=== PATIENT | female | born 1950 | race Caucasian/White ===

== ENCOUNTER 2016-11-26 08:43 | Inpatient (IN) | payer OTHER, MEDICARE ==
[~2016-11-26] VITALS: Ht 172.7 cm; Wt 75.9 kg
[~2016-11-26 08:43] MED LIST: AMBIEN 10MG10 MG PO; AMLODIPINE BES2.5 MG PO; AMLODIPINE10 MG PO; ATIVAN1 MG PO; ATIVAN2 MG PO; CARDIZEM CD 12120 MG PO; COUMADIN 2 MG TA2 MG PO; COUMADIN 2.5 M2.5 MG PO; COUMADIN 3 MG TA3 MG PO; COUMADIN 5 MG TA5 MG PO; COUMADIN5 M2 PO; DELTASONE5 MG PO; EPOGEN SC; EXALGO12 MG PO; EXALGO16 MG PO; FUROSEMIDE40 MG PO; GUAIFENESIN ER600 MG PO; HYDROMORPHONE H PO; HYDROMORPHONE HC2 MG PO; KLOR-CON 10MEQ10 MEQ PO; LASIX 100M100 MG/10 IV; LASIX20 MG PO; LASIX40 MG PO; LASIX80 MG PO; LORAZEPAM1 MG PO; LORAZEPAM2 MG PO; MECLIZINE HCL25 M1 PO; MELATONIN5 M1 PO; MORPHINE SULFAT30 M2 PO; MS CONTIN15 M1 PO; MS CONTIN30 MG PO; MYCOSTATIN POWD15 GM TOP; NORVASC 10MG10 MG PO; OXYCODONE HCL15 MG PO; OXYCODONE HCL30 MG PO; PREDNISONE 20MG20 MG PO; PREDNISONE10 M2 PO; PREDNISONE10 MG PO; PREDNISONE5 MG PO; PROAIR HFA0.09 MG/Ac INH; PROCRIT20000 U/ML IV; PROCRIT20000 U/ML SC; RENVELA800 MG PO; ROXICODONE5 MG PO; SENNA CON/DOCUS1 TAB PO; SERTRALINE HYD100 MG PO; SPIRIVA 18 MCG18 MCG INH; SYMBICORT 160/41 PUF INH; VALIUM5 M1 PO; VITAMIN D1000 IU PO; WARFARIN SODIUM3 MG PO; ZOLPIDEM TARTRA10 MG PO
--- NOTE | 2016-11-26 08:45 | ED GENERAL ADULT ---
History of Present Illness General Chief Complaint: Dyspnea (COPD, CHF, Other) Stated Complaint: BIBA DIFF BREATHING Source: patient, EMS Exam Limitations: no limitations Vital Signs & Intake/Output Vital Signs & Intake/Output Vital Signs Date Time Temp Pulse Resp B/P Pulse O2 O2 Flow FiO2 Ox Delivery Rate 11/27 0807 97.8 75 20 120/77 99 Nasal 3.0L Cannula 11/27 0803 99 Nasal 3.0L Cannula 11/27 0000 98 Nasal 3.0L Cannula 11/26 2300 98.0 11/26 2251 18.0 74 18 152/76 99 11/26 2116 100 160/84 11/26 1925 Nasal 4.0L Cannula 11/26 1856 98.1 88 18 157/99 98 11/26 1852 97 Nasal 4.0L Cannula 11/26 1740 97 Nasal 3.0L Cannula 11/26 1247 97 Nasal 3.0L Cannula 11/26 1238 97.7 88 22 164/77 96 Nasal 3.0L Cannula ED Intake and Output 11/27 0000 11/26 1200 Intake Total 240 0 Output Total 100 Balance 140 0 Intake, Oral 240 0 Output, Urine 100 Patient 158 lb 166 lb Weight Allergies Coded Allergies: NO KNOWN ALLERGIES (11/26/16) Reconcile Medications Albuterol Sulfate (Proair Hfa) 0.09 MG/Actuation LUAN 2 PUFF INH Q4 HRS NEEDED PRN SHORTNESS OF BREATH (Reported) Amlodipine Besylate (Amlodipine) 10 MG TAB 1 TAB PO AT BEDTIME high blood pressure Budesonide/Formoterol Fumara (Symbicort 160-4.5 Mcg Inhaler) 160 MCG/4.5 MCG PUF 2 PUF INH BID COPD (Reported) Cholecalciferol (Vitamin D3) 1,000 UNIT TABLET 1,000 IU PO DAILY VITAMIN D SUPPLEMENT Diltiazem Cd (Diltiazem ER) 120 MG CAP.ER.DEG 120 MG PO DAILY A.Fib Epoetin Jerson (Procrit) 20,000 U/ML ML 7,000 U IV Tuesday PRN WITH DIALYSIS Furosemide (Lasix) 80 MG TAB 1 TAB PO AD DIURETIC (Reported) Guaifenesin (Guaifenesin ER) 600 MG TAB.ER.12H 600 MG PO Q12 PRN cough Lorazepam (Ativan) 2 MG TABLET 1 TAB PO QPM PRN ANXIETY (Reported) OXYCODONE HCL (Oxycodone HCl) 15 MG TABLET 1 TAB PO Q4H PAIN (Reported) SERTRALINE HCL (Sertraline Hydrochloride) 100 MG TABLET 1 TAB PO DAILY Depression (Reported) Sevelamer Carbonate (Renvela) 800 MG TABLET 1 TAB PO TID WM PHOSPHORUS BINDER (Reported) TAKE WITH MEALS Tiotropium [place] (Spiriva) 18 MCG CAP.W.DEV 1 CAP INH DAILY COPD (Reported) Warfarin Sodium (Coumadin) 5 MG TABLET 0.5 TAB PO DAILY BLOOD THINNER ( Reported) Triage Nurses Notes Reviewed? yes Onset: Abrupt Duration: day(s): Timing: recent history HPI: 11/26/16 66-year-old female presents to the emergency department complaining of difficulty breathing. The patient used to smoke and has a history of COPD. She also has a history of renal failure and is currently on dialysis. She is due for dialysis today at 11 AM. Today she woke up with severe short of breath redness of breath. She also says that she's had difficulty sleeping last night. The onset of the symptoms were abrupt, the duration was just this morning, the severity significant as her symptoms required to come to the emergency department for care. Past History Travel History Traveled to [place] past 21 day No Medical History Any Pertinent Medical History? see below for history Neurological: TIA EENT: NONE Cardiovascular: AFIB (s/p ablation), CHF, hypertension, mitral stenosis, PACER MITRAL VALVE REPLACEMENT Respiratory: COPD, emphysema, pulmonary hypertension, 02 DEP @ 2L VIA N/C Gastrointestinal: NONE, 08/06 EGD- suggestion of gastroparesis 08/06- colonoscopy- fair prep, but otherwise normal Hepatic: NONE Renal: chronic kidney disease, FISTULA L ARM Musculoskeletal: chronic back pain Psychiatric: anxiety, depression Endocrine: NONE Blood Disorders: anemia Cancer(s): NONE HR ADVISOR/Reproductive: NONE History of MRSA: No History of VRE: No History of CDIFF: No Pneumonia Vaccine: 08/13/10 Surgical History Surgical History: appendectomy, Av fistual on left side [facility] [facility] valve replacement February 1996 at R evacuation of left arm hematoma pacemaker MVR Psychosocial History Who do you live with Spouse Services at Home Nursing, Oxygen, Physical Therapy What is your primary language Slovenian Family History Family History, If Any: BROTHER FH: diabetes mellitus Hx Contributory? No Review of Systems Review of Systems Constitutional: Denies: fever. EENTM: Reports: no symptoms. Respiratory: Reports: cough, short of breath. Cardiovascular: Reports: no symptoms. GI: Reports: no symptoms. Genitourinary: Reports: no symptoms. Musculoskeletal: Reports: no symptoms. Skin: Reports: no symptoms. Neurological/Psychological: Reports: no symptoms. Hematologic/Endocrine: Reports: no symptoms. Immunologic/Allergic: Reports: no symptoms. Physical Exam Physical Exam General Appearance: alert, awake, anxious, moderate distress Head: atraumatic, normal appearance Eyes: Bilateral: normal appearance, PERRL, EOMI. Ears, Nose, Throat: normal pharynx, normal ENT inspection Neck: normal inspection, supple Respiratory: wheezing, respiratory distress Cardiovascular: regular rate/rhythm Peripheral Pulses: 4+ radial (R), 4+ radial (L) Gastrointestinal: soft, non-tender Back: decreased range of motion Extremities: limited range of motion Neurologic/Psych: no motor/sensory deficits, awake, alert, oriented x 3 Skin: intact, normal color, warm/dry Core Measures ACS in differential dx? No CVA/TIA Diagnosis: No Severe Sepsis Present: No Septic Shock Present: No Progress Differential Diagnoses I considered the following diagnoses in my evaluation of the patient: [ Laceration of COPD, pneumonia, pneumothorax, pulmonary embolism, congestive heart failure] Plan of Care: Orders Procedure Date/time Status PROTHROMBIN TIME 11/28 0600 Active BASIC ELECTROLYTES PLUS BUN&CR 11/28 0600 Active Weight 11/27 0630 Active PROTHROMBIN TIME 11/27 0600 Complete CBC WITHOUT DIFFERENTIAL 11/27 06 Complete BASIC ELECTROLYTES PLUS BUN&CR 11/27 0600 Complete MISSING MEDICATION FORM 11/27 UNK Active Renal Dialysis Diet 11/26 D Active Pain Treatment and Response 11/26 2118 Active Vital Signs 11/26 1912 Active Teach/Educate 11/26 1912 Active Nutritional Intake, Monitor 11/26 1912 Active Isolation 11/26 1912 Active Intake & Output 11/26 1912 Active Patient Care Conference 11/26 1912 Active Activity/Ambulation 11/26 1912 Active RT: Reevaluation 11/26 184 Active RT: Evaluation 11/26 184 Active OXYGEN SETUP (GEN) 11/26 1800 Complete PROTHROMBIN TIME 11/26 1534 Active STREP PNEUMO URINARY ANTIGEN 11/26 1448 Active LEGIONELLA URINARY ANTIGEN 11/26 1448 Active Pathway - chart 11/26 1447 Active Code Status 11/26 1447 Active Vital Signs 11/26 1306 Active Code Status 11/26 1306 Complete Patient Data 11/26 1252 Active Admit to inpatient 11/26 1215 Active Intake & Output 11/26 0902 Active TRC EVALUATION (GEN) 11/26 UNK Complete THERAPIST ORDERS 11/26 UNK Complete House Staff 11/26 UNK Active VTE Mechanical Prophylaxis 11/26 UNK Active MISSING MEDICATION FORM 11/26 UNK Active Current Medications Sig/Tripp Start time Last Medication Dose Stop Time Status Admin Furosemide 80 MG QSUN 11/28 0700 AC (Lasix) Amlodipine Besylate 10 MG AT BEDTIME 11/26 2200 AC (Norvasc) Cefuroxime Sodium 250 MG Q12 11/26 2200 CAN (Ceftin) Acetaminophen 650 MG Q6P PRN 11/26 1445 AC (Tylenol) Paricalcitol 2.5 MCG MoWeFr 11/26 1415 AC (Zemplar Inj. 2MCG/ ML) Epoetin Jerson 4,000 UNIT MoWeFr 11/26 1412 AC (Epogen Inj 4000 (DIALYSIS PATIENT)) Laboratory Tests 11/27/16 0835: PT 40.4 H, INR 3.90 H 11/27/16 0740: Anion Gap 10, Estimated GFR 15 L, BUN/Creatinine Ratio 9.1, CBC w Diff NO MAN DIFF REQ, RBC 3.80 L, MCV 94.7, MCH 31.0, RDW 15.3 H, MPV 8.6, Gran % 81.0 H, Lymphocytes % 10.2 L, Monocytes % 8.7, Eosinophils % 0, Basophils % 0.1, Absolute Granulocytes 3.0, Absolute Lymphocytes 0.4 L, Absolute Monocytes 0.3, Absolute Eosinophils 0, Absolute Basophils 0, PUBS MCHC 32.8 L Microbiology 11/26 1447 URINE ROUT: Legionella Antigen - COLB 11/26 1447 URINE ROUT: Streptococcus pneumoniae Antigen (M - COLB Initial ED EKG: nonspecific ST T wave chg Departure Departure Disposition: STILL A PATIENT Condition: Stable Clinical Impression Primary Impression: Acute exacerbation of COPD with asthma Referrals: YAIR SARAH MD (PCP/Family) Departure Forms: Customer Survey General Discharge Information Comments THE PATIENT WAS TREATED WITH MULTIPLE NEBULIZERS IN THE EMERGENCY DEPARTMENT AND PLACED ON OXYGEN. SHE WAS GIVEN STEROIDS. SHE CONTINUED TO HAVE RESPIRATORY DISTRESS WITH ANY DEGREE OF ACTIVITY. SHE WAS ADMITTED TO THE HOSPITAL FOR DIALYSIS AND FURTHER CARE. PATIENT: ZAFAR GARCIA PRESENT AGE: 66 PATIENT ACCOUNT NO: [id number] : 51 LOCATION: [facility] ORDERING PHYSICIAN: JONO CABRERA DO SERVICE DATE: 11/26/16 EXAM TYPE: RAD - XRY-CHEST XRAY, PA AND LATERAL EXAMINATION: XR CHEST CLINICAL INFORMATION: Difficulty breathing. Productive cough. COMPARISON: Chest radiograph 06/17/2016. TECHNIQUE: 2 views the chest were obtained. 3 images total. FINDINGS: Similar to the findings demonstrated on the most recent prior examination from 06/17/2016 there are ill-defined opacities involving both lungs primarily on the right side with a perihilar distribution. A few nodular opacities are visualized for instance within the peripheral aspect of the right midlung and the right lower lobe. The cardiac silhouette remains enlarged but unchanged from prior imaging. Upper mediastinal contours are normal. There is a stable position of a 2-lead pacer. The position of the generator in the left chest is unchanged. Trace effusions within the posterior costophrenic recesses on the lateral projection. There is diffuse demineralization of bone. No acute osseous finding. IMPRESSION: There are ill-defined opacities involving both lungs primarily on the right side. A few nodular opacities are visualized within the periphery of the right lung and within the right lower lobe. Findings are largely unchanged when compared to the prior chest radiograph from 06/17/2016. These findings may represent a manifestation of pneumonia in the appropriate clinical setting. A dedicated CT scan of the chest may provide better anatomic characterization of these findings. DICTATED BY: ASHISH SERVIN MD DATE/TIME DICTATED:11/26/16938 HUMAN SERVICES CARE SPECIALIST:STEFANIE DATE/TIME TRANSCRIBED:11/26/16938 CONFIDENTIAL, DO NOT COPY WITHOUT APPROPRIATE AUTHORIZATION. <Electronically signed in Other Vendor System> SIGNED BY: ASHISH SERVIN MD 11/26 Admission Note Spoke With: YAIR SARAH MD Documentation of Exam: Documentation of any treatments & extenuating circumstances including Concerns Regarding Discharge (functional status, medication knowledge or non-compliance, living conditions, etc.) that warrant an admission rather than observation: [The patient needs admission for albuterol and Atrovent nebulizer treatments every 4 hours, IV steroids, inpatient dialysis, IV antibiotics] Critical Care Note Critical Care Note Critical Care Time: 30-74 min
--- NOTE | 2016-11-26 08:54 | NUR ---
PT BIBA FROM HOME FOR INCREASED SOB FOR THE LAST WEEK, BUT WORSE SINCE YESTERDAY. PT REPORTS SHE STARTS TO GET SOB WHILE WALKING SHORTER DISTANCES. PT BASELINE 3L O2 AT HOME. PT ALSO DIALYSIS PT. LAST DIALYZED TUESDAY AND DUE FOR IT AGAIN TODAY AROUND 1100. PT RECEIVED DUONEB AND 125MG SOLUMEDROL EN ROUTE. PT 100% 3L NC OXYGEN. +WHEEZING NOTED.
--- NOTE | 2016-11-26 09:19 | NUR ---
PT TO XRAY VIA STRETCHER NOW.
--- NOTE | 2016-11-26 09:45 | NUR ---
BLOOD WORK DRAWN AND SENT TO LAB: SST, LAV, BLUE, SHANE TOPS. IV EST BY [place] BLANC.
[2016-11-26 09:50] LABS: ABSOLUTE BASOPHIL COUNT 0 /CUMM (0.0-0.2); ABSOLUTE EOSINOPHIL COUNT 0.1 /CUMM (0.0-0.7); ABSOLUTE GRANULOCYTE CT 5.2 /CUMM (1.4-6.5); ABSOLUTE LYMPH COUNT 0.6 /CUMM (1.2-3.4); ABSOLUTE MONOCYTE COUNT 0.5 /CUMM (0.10-0.60); BASOPHIL % 0.2 % (0.0-2.0); EOSINOPHIL % 1.3 % (0-5); GRANULOCYTE % 81.1 % (42.2-75.2); HEMATOCRIT 36.8 % (37-47); MEAN CORPUSCULAR HGB 30.9 PG (27.0-31.0); MEAN CORPUSCULAR HGB CONC 32.1 G/DL (33.0-37.0); MEAN CORPUSCULAR VOLUME 96.2 FL (81.0-99.0); MEAN PLATELET VOLUME 8.1 FL (7.4-10.4); PLATELET COUNT 223 /CUMM (130-400); RBC DISTRIBUTION WIDTH 15.7 % (11.5-14.5); RED BLOOD CELL CT 3.82 /CUMM (4.20-5.40); WHITE BLOOD CELL COUNT 6.4 /CUMM (4.8-10.8)
--- NOTE | 2016-11-26 09:51 | RADIOLOGY REPORT ---
EXAMINATION: XR CHEST CLINICAL INFORMATION: Difficulty breathing. Productive cough. COMPARISON: Chest radiograph 06/17/2016. TECHNIQUE: 2 views the chest were obtained. 3 images total. FINDINGS: Similar to the findings demonstrated on the most recent prior examination from 06/17/2016 there are ill-defined opacities involving both lungs primarily on the right side with a perihilar distribution. A few nodular opacities are visualized for instance within the peripheral aspect of the right midlung and the right lower lobe. The cardiac silhouette remains enlarged but unchanged from prior imaging. Upper mediastinal contours are normal. There is a stable position of a 2-lead pacer. The position of the generator in the left chest is unchanged. Trace effusions within the posterior costophrenic recesses on the lateral projection. There is diffuse demineralization of bone. No acute osseous finding. IMPRESSION: There are ill-defined opacities involving both lungs primarily on the right side. A few nodular opacities are visualized within the periphery of the right lung and within the right lower lobe. Findings are largely unchanged when compared to the prior chest radiograph from 06/17/2016. These findings may represent a manifestation of pneumonia in the appropriate clinical setting. A dedicated CT scan of the chest may provide better anatomic characterization of these findings.
--- NOTE | 2016-11-26 09:56 | NUR ---
RESP AT BEDSIDE FOR TREATMENT.
--- NOTE | 2016-11-26 11:23 | NUR ---
PT MEDICATED ORDERED
--- NOTE | 2016-11-26 12:34 | NUR ---
RESP CALLED FOR TREATMENT.
--- NOTE | 2016-11-26 12:34 | NUR ---
PT AMBULATED TO BED SIDE COMMODE WITH STEADY GAIT, EXERTIONAL DYSPNEA NOTED. CALL [facility] WITHIN REACH AND PT INFORMED TO RING WHEN READY.
--- NOTE | 2016-11-26 12:39 | NUR ---
O2 SAT DROPPED TO 92% AFTER AMBULATING TO BEDSIDE COMMODE. PT NOTED TO WHEEZE HEAVILY AFTER AMBULATION.
--- NOTE | 2016-11-26 13:06 | NUR ---
PT TRANSPORTED TO DIALYSIS VIA STRETCHER. STABLE FOR TRANSPORT.
--- NOTE | 2016-11-26 13:10 | NUR ---
DIALYSIS NURSE GIVEN REPORT.
--- NOTE | 2016-11-26 13:17 | Admission Certification ---
Admission Certification Certification Statement - As attending physician, I certify that at the time of - admission, based on clinical presentation, severity of - symptoms, need for further diagnostic testing and - therapeutic interventions, and risk of adverse outcomes - without in-hospital treatment, in my clinical assessment, - this patient requires an acute hospital stay for a minimum - of two nights or longer. I have also considered psychsocial - factors such as support system, advanced age, financial - issues, cognitive issues, and failed out-patient treatments, - past re-admission history, safety of patient, and lack of - compliance as applicable. Specific rationale supporting this admission is: Exacerbation of her COPD
--- NOTE | 2016-11-26 13:21 | PN- Att Addend ---
Attending Addendum Attending Brief Note 56-year-old white female known with chronic lung disease and renal failure, this morning woke up with severe shortness of breath and some wheezes so bad she couldn't get to her scheduled hemodialysis associate and the lab in the emergency room came via ambulance. Will be admitted for an exacerbation of her COPD and use the protocol to be followed by pulmonary. Patient will have her hemodialysis in the hospital today, Laboratory Tests 11/26 0942 Chemistry Sodium (137 - 145 mmol/L) 141 Potassium (3.5 - 5.1 mmol/L) 5.1 Chloride (98 - 107 mmol/L) 104 Carbon Dioxide (22 - 30 mmol/L) 25 Anion Gap (5 - 16) 12 BUN (7 - 17 mg/dL) 29 H Creatinine (0.5 - 1.0 mg/dL) 4.0 H Estimated GFR (>60 ml/min) 11 L BUN/Creatinine Ratio (7 - 25 %) 7.3 Glucose (65 - 99 mg/dL) 98 Calcium (8.4 - 10.2 mg/dL) 9.4 Total Bilirubin (0.2 - 1.3 mg/dL) 0.6 AST (14 - 36 U/L) 19 ALT (9 - 52 U/L) 35 Alkaline Phosphatase (<127 U/L) 113 Troponin I (< 0.11 ng/ml) 0.02 Total Protein (6.3 - 8.2 g/dL) 6.8 Albumin (3.5 - 5.0 g/dL) 4.3 Globulin (1.9 - 4.2 gm/dL) 2.5 Albumin/Globulin Ratio (1.1 - 2.2 %) 1.7 Hematology CBC w Diff NO MAN DIFF REQ WBC (4.8 - 10.8 /CUMM) 6.4 RBC (4.20 - 5.40 /CUMM) 3.82 L Hgb (12.0 - 16.0 G/DL) 11.8 L Hct (37 - 47 %) 36.8 L MCV (81.0 - 99.0 FL) 96.2 MCH (27.0 - 31.0 PG) 30.9 RDW (11.5 - 14.5 %) 15.7 H Plt Count (130 - 400 /CUMM) 223 MPV (7.4 - 10.4 FL) 8.1 Gran % (42.2 - 75.2 %) 81.1 H Lymphocytes % (20.5 - 51.1 %) 9.0 L Monocytes % (1.7 - 9.3 %) 8.4 Eosinophils % (0 - 5 %) 1.3 Basophils % (0.0 - 2.0 %) 0.2 Absolute Granulocytes (1.4 - 6.5 /CUMM) 5.2 Absolute Lymphocytes (1.2 - 3.4 /CUMM) 0.6 L Absolute Monocytes (0.10 - 0.60 /CUMM) 0.5 Absolute Eosinophils (0.0 - 0.7 /CUMM) 0.1 Absolute Basophils (0.0 - 0.2 /CUMM) 0 PUBS MCHC (33.0 - 37.0 G/DL) 32.1 L
--- NOTE | 2016-11-26 13:52 | NUR ---
PT HAS BED ASSIGNMENT 201-1. RN NOTIFIED.
--- NOTE | 2016-11-26 14:01 | History & Physical ---
See Addendum RAYO LANE,AGUSTO 11/26/16 1401: General Information and HPI MD Statement: I have seen and personally examined ZAFAR GARCIA and documented this H&P. The patient is a 66 year old F who presented with a patient stated chief complaint of dyspnea. Source of Information: patient Exam Limitations: no limitations History of Present Illness: This is a 66-year-old lady with a past medical history significant for oxygen dependent severe COPD, former smoker for more than 40 years, minor hypertension, tinnitus post mitral valve replacement due to mitral stenosis, A. fib, CHF, hypertension, presents with chief complaint of progressively worsening dyspnea. Patient reports about one week ago she started experiencing increased shortness of breath which progressed to dyspnea on minimal exertion. Associated symptoms include increased cough with increased sputum production. Patient reports the sputum to be yellowish and sometimes white in color. She also endorses chills but denies any fevers. She also reports one day of diarrhea and vomiting which stopped after she was given loperamide. She denies any recent URI, any sick contacts, chest pain, palpitation, increased lower extremity swelling, increased orthopnea, or PND. Last echocardiogram was in 06/17/2016 with an EF of 50-55% Of note, patient is independent with ADLS, and ambulates without the need for a cane or a walker. Allergies/Medications Allergies: Coded Allergies: NO KNOWN ALLERGIES (11/26/16) Home Med list Albuterol Sulfate (Proair Hfa) 0.09 MG/Actuation LUNA 2 PUFF INH Q4 HRS NEEDED PRN SHORTNESS OF BREATH (Reported) Amlodipine Besylate (Amlodipine) 10 MG TAB 1 TAB PO AT BEDTIME high blood pressure Budesonide/Formoterol Fumara (Symbicort 160-4.5 Mcg Inhaler) 160 MCG/4.5 MCG PUF 2 PUF INH BID COPD (Reported) Cholecalciferol (Vitamin D3) 1,000 UNIT TABLET 1,000 IU PO DAILY VITAMIN D SUPPLEMENT Diltiazem Cd (Diltiazem ER) 120 MG CAP.ER.DEG 120 MG PO DAILY A.Fib Epoetin Jerson (Procrit) 20,000 U/ML ML 7,000 U IV Tuesday PRN WITH DIALYSIS Furosemide (Lasix) 80 MG TAB 1 TAB PO AD DIURETIC (Reported) Guaifenesin (Guaifenesin ER) 600 MG TAB.ER.12H 600 MG PO Q12 PRN cough Lorazepam (Ativan) 2 MG TABLET 1 TAB PO QPM PRN ANXIETY (Reported) OXYCODONE HCL (Oxycodone HCl) 15 MG TABLET 1 TAB PO Q4H PAIN (Reported) SERTRALINE HCL (Sertraline Hydrochloride) 100 MG TABLET 1 TAB PO DAILY Depression (Reported) Sevelamer Carbonate (Renvela) 800 MG TABLET 1 TAB PO TID WM PHOSPHORUS BINDER (Reported) TAKE WITH MEALS Tiotropium [place] (Spiriva) 18 MCG CAP.W.DEV 1 CAP INH DAILY COPD (Reported) Warfarin Sodium (Coumadin) 5 MG TABLET 0.5 TAB PO DAILY BLOOD THINNER ( Reported) Past History Travel History Traveled to [place] past 21 day No Medical History Neurological: TIA EENT: NONE Cardiovascular: AFIB (s/p ablation), CHF, hypertension, mitral stenosis, PACER ( R CHEST) MITRAL VALVE REPLACEMENT Respiratory: COPD, emphysema, pulmonary hypertension, 02 DEP @ 3L VIA N/C Gastrointestinal: 08/06 EGD- suggestion of gastroparesis 08/06- colonoscopy- fair prep, but otherwise normal Hepatic: NONE Renal: chronic kidney disease, FISTULA L ARM Musculoskeletal: chronic back pain Psychiatric: anxiety, depression Endocrine: NONE Blood Disorders: anemia Cancer(s): NONE TITLE INVESTIGATOR/Reproductive: NONE History of MRSA: No History of VRE: No History of CDIFF: No Surgical History Surgical History: appendectomy, Av fistual on left side [facility] [facility] valve replacement February 1996 at R evacuation of left arm hematoma pacemaker MVR Past Family/Social History Family History Relations & Conditions if any BROTHER FH: diabetes mellitus Psychosocial History Services at Home: Nursing, Oxygen, Physical Therapy ETOH Use: denies use Functional Ability ADLs Independent: dressing, eating, toileting, bathing. Ambulation: independent Review of Systems Review of Systems Constitutional: Reports: see HPI. Exam & Diagnostic Data Last 24 Hrs of Vital Signs/I&O Vital Signs Date Time Temp Pulse Resp B/P Pulse O2 O2 Flow FiO2 Ox Delivery Rate 11/26 1924 Nasal 4.0L Cannula 11/26 185 98.1 88 18 157/99 98 11/26 1852 97 Nasal 4.0L Cannula 11/26 1740 97 Nasal 3.0L Cannula 11/26 1247 97 Nasal 3.0L Cannula 11/26 1238 97.7 88 22 164/77 96 Nasal 3.0L Cannula 11/26 1118 98.0 72 22 164/74 99 Nasal 3.0L Cannula 11/26 0955 98 Nasal 3.0L Cannula 11/26 0902 98 Nasal 3.0L Cannula 11/26 0854 97.7 80 20 173/74 100 Nasal 3.0L Cannula Intake & Output 11/26 1600 11/26 0800 11/26 0000 Intake Total 0 Output Total Balance 0 Intake, Oral 0 Patient 75.296 kg Weight Physical Exam General Appearance Alert, Oriented X3, Cooperative Skin No Significant Lesion HEENT Atraumatic, PERRLA, EOMI, Mucous Membr. moist/pink Neck Supple Lymphatic Cervical nl Cardiovascular Regular Rate, Normal S1, Normal S2 Lungs b/l expiratory whezzes on all lung nino. Abdomen Normal Bowel Sounds, Soft, No Tenderness Neurological Normal Speech, Normal Tone, Sensation Intact Vascular Pulses Symmetrical Assessment/Plan Assessment: This 66-year-old female with a significant past medical history of severe COPD, pulmonary hypertension, presents with symptoms that are consistent with acute exacerbation of COPD (worsening dyspnea, increased cough, and increased sputum production). Radiological finding from a chest x-ray is suggestive of possible pneumonia, however, findings are unchanged when compared to the previous chest x -ray from May 2016. Impression * AECOPD * Chronic hypoxic respiratory failure * History of ESRD requiring dialysis. * Chronic anemia * History of A. fib * History of mitral valve replacement Plan Will admit to general medicine floor O2 supplementation to keep sats above 90% Solu-Medrol 40 mg every 8h TRC/Nebs Will consider CT chest, however will defer to pulmonology. Will obtain pulmonary consult Nephrology on board for dialysis(appreciated) Will continue diltiazem INR based coumadin dose with target of 2.5-3.5 Continue oxycodene for chronic back pain As Ranked By This Provider Problem List: 1. COPD with acute exacerbation Core Measures/Miscellaneous Acute Coronary Syndrome ACS Diagnosis: No Cerebrovascular Accident CVA/TIA Diagnosis: No Congestive Heart Failure CHF Diagnosis: No Venous Thromboembolism VTE Risk Factors: Acute medical illness, Age > 40 VTE Prophylaxis Ordered Inpt: Pharm- Warfarin No Mech VTE prophylaxis d/t: No contraindications No VTE Pharm Prophylaxis d/t: No contraindications VTE Diagnosis: No VTE Type: NONE VTE Confirmed by (Test): NONE Severe Sepsis Severe Sepsis Present: No Septic Shock Septic Shock Present: No Miscellaneous Documentation Attending Case Discussed With: YAIR SARAH MD Primary Care Physician: YAIR SARAH MD Patient sees these Specialists cardiology nephrology Level of Patient Care: General Medicine ESVIN ANTHONY 11/26/16 1533: Resident Review Statement Resident Statement: examined this patient, discussed with fall internship, amended to note Other Findings: 66-year-old lady with past medical history of COPD on 3 L oxygen, ESRD on dialysis, former smoker, hypertension, A. fib, CHF?, Hypertension, mitral valve replacement on Coumadin, chronic back pain who came to the hospital with chief complaint of coughing and shortness of breath for at least 1 week. Patient reported that since 1 week ago she developed more dyspnea on exertion and coughing didn't mild yellow sputum production accompanied with chills. She reports her chloride due to dialysis center probably has pneumonia. Her SOB and wheezing got so bad today that she came to the hospital. Patient on dialysis Tuesday. Patient denies any chest pain, nausea, vomiting, diarrhea, abdominal pain, fever. Vital signs admission is stable with O2 saturation over 95% on 3 L HEENT Atraumatic, PERRLA, EOMI Neck Supple, No JVD, No thryomegaly Lymphatic Cervical nl Cardiovascular Regular Rate, Normal S1, Normal S2 Lungs decreased breath sounds bilaterally. Expiratory wheezing Abdomen Normal Bowel Sounds, Soft, No Tenderness, No Hepatospenomegaly, No Masses Extremities No Clubbing, No Cyanosis, trace Edema,Normal Pulses CXR: IMPRESSION: There are ill-defined opacities involving both lungs primarily on the right side. A few nodular opacities are visualized within the periphery of the right lung and within the right lower lobe. Findings are largely unchanged when compared to the prior chest radiograph from 06/17/2016. These findings may represent a manifestation of pneumonia in the appropriate clinical setting. A dedicated CT scan of the chest may provide better anatomic characterization of these findings. Rapid flu was negative Patient creatinine is 4, hemoglobin 11.8 EKG afib 88, QTC 502, kimberli acute st-t changes Assessment and plan COPD exacerbation * Admit the patient to general floor * Keep O2 saturation over 92% * TRC nebs * IV Solu-Medrol 40 mg every 8 hours * NO azithromycin due to long QTC * Check urine strep and Legionella * Pulmonary consult was placed * put the patient on ceftin BID ESRD on dialysis * Continue Tuesday schedule * Renal dialysis diet * Continue Lasix every every day except dialysis days afib on warfarin * check INR now and give warfarin 2.5 and check INR tomorrow * Continue diltiazem Chronic back pain/anxiety/depression * Continue oxycodone and Ativan * cont Lexapro DNR/DNI, Alps on warfarin for DVT prophylaxis, renal dialysis diet,oxycdone for pain
--- NOTE | 2016-11-26 16:08 | NUR ---
REPORT GIVEN TO CLARA BLANC. INFORMED PT IS STILL AT DIALYSIS.
--- NOTE | 2016-11-26 16:09 | NUR ---
ZAFAR GARCIA Nurse Note by: LYNNE JOVEL I agree with the INBOUND CALL CENTER AGENT findings/evaluation of this patient's condition. Entered by: LYNNE JOVEL Date: 11/26/16 Time: 8253
--- NOTE | 2016-11-26 16:17 | Cons- Nephrology ---
General Information and HPI Consulting Request Date of Consult: 11/26/16 Requested By: YAIR SARAH MD Reason for Consult: ESRD History of Present Illness: 66-year-old woman with dialysis dependent ESRD did not go to her regularly scheduled outpatient dialysis session today because she had been getting more short of breath over the past 12-24 hours which she feels is on the basis of her COPD. She has been coughing which is been mostly dry but occasionally productive of discolored sputum. There has been no fever, chills, chest pain, nausea, vomiting, abdominal pain or diarrhea. Chest x-ray is unchanged from previous study of 06/17/16. WBC within normal limits at 6.4, troponin within normal limits. Past medical history is positive for end-stage renal disease secondary to hypertensive nephrosclerosis on hemodialysis support since October 2015, severe COPD on home oxygen, valvular heart disease status post mitral valve replacement , hypertension, atrial fibrillation status post ablation in 2009 with permanent pacemaker complicated by splenic hematoma, left ventricular hypertrophy, moderate right ventricular dilatation with moderate to severe pulmonary hypertension, diastolic CHF, admissions for exacerbation of COPD, chronic back pain for which she is on chronic opioid analgesics, depression. Outpatient medications include Epogen, Hectorol, Venofer, amlodipine, furosemide , vitamin D, sertraline, warfarin, diltiazem, oxycodone, Renvela, Spiriva. Allergies: No known medication allergies Family history no kidney disease in either of her parents. Her brother has some degree of renal disease, no details available. He lives in [place]. Social history: Former smoker. No alcohol or illicit drug use. Lives at home with her who also has CKD and is chronically debilitated. She uses O2 at home and has one daughter and one son. Allergies/Medications Allergies: Coded Allergies: NO KNOWN ALLERGIES (11/26/16) Home Med List: Albuterol Sulfate (Proair Hfa) 0.09 MG/Actuation LUNA 2 PUFF INH Q4 HRS NEEDED PRN SHORTNESS OF BREATH (Reported) Amlodipine Besylate (Amlodipine) 10 MG TAB 1 TAB PO AT BEDTIME high blood pressure Budesonide/Formoterol Fumara (Symbicort 160-4.5 Mcg Inhaler) 160 MCG/4.5 MCG PUF 2 PUF INH BID COPD (Reported) Cholecalciferol (Vitamin D3) 1,000 UNIT TABLET 1,000 IU PO DAILY VITAMIN D SUPPLEMENT Diltiazem Cd (Diltiazem ER) 120 MG CAP.ER.DEG 120 MG PO DAILY A.Fib Epoetin J[place] (Procrit) 20,000 U/ML ML 7,000 U IV Tuesday PRN WITH DIALYSIS Furosemide (Lasix) 80 MG TAB 1 TAB PO AD DIURETIC (Reported) Guaifenesin (Guaifenesin ER) 600 MG TAB.ER.12H 600 MG PO Q12 PRN cough Lorazepam (Ativan) 2 MG TABLET 1 TAB PO QPM PRN ANXIETY (Reported) OXYCODONE HCL (Oxycodone HCl) 15 MG TABLET 1 TAB PO Q4H PAIN (Reported) SERTRALINE HCL (Sertraline Hydrochloride) 100 MG TABLET 1 TAB PO DAILY Depression (Reported) Sevelamer Carbonate (Renvela) 800 MG TABLET 1 TAB PO TID WM PHOSPHORUS BINDER (Reported) TAKE WITH MEALS Tiotropium [place] (Spiriva) 18 MCG CAP.W.DEV 1 CAP INH DAILY COPD (Reported) Warfarin Sodium (Coumadin) 5 MG TABLET 0.5 TAB PO DAILY BLOOD THINNER ( Reported) Review of Systems Review of Systems Constitutional: Reports: malaise, weakness. EENTM: Reports: no symptoms. Cardiovascular: Reports: no symptoms. Respiratory: Reports: cough, short of breath, sputum production, wheezing. GI: Reports: no symptoms. Genitourinary: Reports: no symptoms. Musculoskeletal: Reports: no symptoms. Skin: Reports: no symptoms. 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 [facility] valve replacement February 1996 at [facility] evacuation of left arm hematoma pacemaker MVR Family History Relations & Conditions If Any: BROTHER FH: diabetes mellitus Psychosocial History Services at Home: Nursing, Oxygen, Physical Therapy ETOH Use: denies use Functional Ability ADLs Independent: dressing, eating, toileting, bathing. Ambulation: independent Exam & Diagnostic Data Vital Signs and I&O Vital Signs Date Time Temp Pulse Resp B/P Pulse O2 O2 Flow FiO2 Ox Delivery Rate 11/26 1247 97 Nasal 3.0L Cannula 11/26 1238 97.7 88 22 164/77 96 Nasal 3.0L Cannula 11/26 1118 98.0 72 22 164/74 99 Nasal 3.0L Cannula 11/26 0955 98 Nasal 3.0L Cannula 11/26 0902 98 Nasal 3.0L Cannula 11/26 0854 97.7 80 20 173/74 100 Nasal 3.0L Cannula Intake & Output 11/26 1600 11/26 04011/25 1600 11/25 04011/24 040 Intake Total 0 Output Total Balance 0 Intake, Oral 0 Patient 166 lb Weight Physical Exam: General: Well-developed white female on O2 in NAD Skin: No rash or jaundice HEENT: Conjunctivae pink, sclerae anicteric, mucous membranes moist Neck: Without masses or thyromegaly, no supraclavicular or cervical adenopathy Chest: Markedly diminished air entry bilaterally with scattered wheezing throughout both lung nino Heart: Regular rate and rhythm without S3 or rub; there is a left infraclavicular pacemaker in place Abdomen: Obese, soft and nontender without palpable masses or organomegaly Extremities: Without clubbing, cyanosis or edema; the left upper arm AVF is patent Neuro: She is awake and alert. No focal findings, no asterixis or myoclonus Results Pertinent Lab Results: Laboratory Tests 11/26 09 Chemistry Sodium (137 - 145 mmol/L) 141 Potassium (3.5 - 5.1 mmol/L) 5.1 Chloride (98 - 107 mmol/L) 104 Carbon Dioxide (22 - 30 mmol/L) 25 Anion Gap (5 - 16) 12 BUN (7 - 17 mg/dL) 29 H Creatinine (0.5 - 1.0 mg/dL) 4.0 H Estimated GFR (>60 ml/min) 11 L BUN/Creatinine Ratio (7 - 25 %) 7.3 Glucose (65 - 99 mg/dL) 98 Calcium (8.4 - 10.2 mg/dL) 9.4 Total Bilirubin (0.2 - 1.3 mg/dL) 0.6 AST (14 - 36 U/L) 19 ALT (9 - 52 U/L) 35 Alkaline Phosphatase (<127 U/L) 113 Troponin I (< 0.11 ng/ml) 0.02 Total Protein (6.3 - 8.2 g/dL) 6.8 Albumin (3.5 - 5.0 g/dL) 4.3 Globulin (1.9 - 4.2 gm/dL) 2.5 Albumin/Globulin Ratio (1.1 - 2.2 %) 1.7 Hematology CBC w Diff NO MAN DIFF REQ WBC (4.8 - 10.8 /CUMM) 6.4 RBC (4.20 - 5.40 /CUMM) 3.82 L Hgb (12.0 - 16.0 G/DL) 11.8 L Hct (37 - 47 %) 36.8 L MCV (81.0 - 99.0 FL) 96.2 MCH (27.0 - 31.0 PG) 30.9 RDW (11.5 - 14.5 %) 15.7 H Plt Count (130 - 400 /CUMM) 223 MPV (7.4 - 10.4 FL) 8.1 Gran % (42.2 - 75.2 %) 81.1 H Lymphocytes % (20.5 - 51.1 %) 9.0 L Monocytes % (1.7 - 9.3 %) 8.4 Eosinophils % (0 - 5 %) 1.3 Basophils % (0.0 - 2.0 %) 0.2 Absolute Granulocytes (1.4 - 6.5 /CUMM) 5.2 Absolute Lymphocytes (1.2 - 3.4 /CUMM) 0.6 L Absolute Monocytes (0.10 - 0.60 /CUMM) 0.5 Absolute Eosinophils (0.0 - 0.7 /CUMM) 0.1 Absolute Basophils (0.0 - 0.2 /CUMM) 0 PUBS MCHC (33.0 - 37.0 G/DL) 32.1 L Assessment/Plan Assessment/Recommendations Assessment: 66-year-old woman with: 1. End-stage renal disease on hemodialysis Mondays, Wednesdays and Fridays 2. COPD with exacerbation; I do not believe there is a significant element of CHF at this time 3. Multiple comorbidities as noted above Recommendations: 1. Hemodialysis today in progress with ultrafiltration to her dry weight over 3 hours as tolerated 2. Respiratory therapy, steroids, antibiotics 3. Continue outpatient medications 4. I will order her Epogen and vitamin D analog 5. Diet: 2 g sodium, 2 g potassium, 70-80 g protein, 1200 mL fluid limit/day Thank you. Will follow along with you.
--- NOTE | 2016-11-26 18:24 | Cons- Pulmonary ---
General Information and HPI Consulting Request Date of Consult: 11/26/16 Requested By: med team History of Present Illness: This is a 66-year-old lady with a past medical history significant for oxygen dependent severe COPD, former smoker for more than 40 years, minor hypertension, tinnitus post mitral valve replacement due to mitral stenosis, A. fib, CHF, hypertension, presents with chief complaint of progressively worsening dyspnea. Patient reports about one week ago she started experiencing increased shortness of breath which progressed to dyspnea on minimal exertion. Associated symptoms include increased cough with increased sputum production. Patient reports the sputum to be yellowish and sometimes white in color. She also endorses chills but denies any fevers. She also reports one day of diarrhea and vomiting which stopped after she was given loperamide. She denies any recent URI, any sick contacts, chest pain, palpitation, increased lower extremity swelling, increased orthopnea, or PND. Last echocardiogram was in 06/17/2016 with an EF of 50-55% Of note, patient is independent with ADLS, and ambulates without the need for a cane or a walker. S/p dialysis with ongoing smoking Constitutional: Reports: malaise, weakness. EENTM: Reports: no symptoms. Cardiovascular: Reports: no symptoms. Respiratory: Reports: cough, short of breath, sputum production, wheezing. GI: Reports: no symptoms. Genitourinary: Reports: no symptoms. Musculoskeletal: Reports: no symptoms. Skin: Reports: no symptoms. Allergies/Medications Allergies: Coded Allergies: NO KNOWN ALLERGIES (11/26/16) Home Med List: Albuterol Sulfate (Proair Hfa) 0.09 MG/Actuation LUNA 2 PUFF INH Q4 HRS NEEDED PRN SHORTNESS OF BREATH (Reported) Amlodipine Besylate (Amlodipine) 10 MG TAB 1 TAB PO AT BEDTIME high blood pressure Budesonide/Formoterol Fumara (Symbicort 160-4.5 Mcg Inhaler) 160 MCG/4.5 MCG PUF 2 PUF INH BID COPD (Reported) Cholecalciferol (Vitamin D3) 1,000 UNIT TABLET 1,000 IU PO DAILY VITAMIN D SUPPLEMENT Diltiazem Cd (Diltiazem ER) 120 MG CAP.ER.DEG 120 MG PO DAILY A.Fib Epoetin Jerson (Procrit) 20,000 U/ML ML 7,000 U IV Tuesday PRN WITH DIALYSIS Furosemide (Lasix) 80 MG TAB 1 TAB PO AD DIURETIC (Reported) Guaifenesin (Guaifenesin ER) 600 MG TAB.ER.12H 600 MG PO Q12 PRN cough Lorazepam (Ativan) 2 MG TABLET 1 TAB PO QPM PRN ANXIETY (Reported) OXYCODONE HCL (Oxycodone HCl) 15 MG TABLET 1 TAB PO Q4H PAIN (Reported) SERTRALINE HCL (Sertraline Hydrochloride) 100 MG TABLET 1 TAB PO DAILY Depression (Reported) Sevelamer Carbonate (Renvela) 800 MG TABLET 1 TAB PO TID WM PHOSPHORUS BINDER (Reported) TAKE WITH MEALS Tiotropium [place] (Spiriva) 18 MCG CAP.W.DEV 1 CAP INH DAILY COPD (Reported) Warfarin Sodium (Coumadin) 5 MG TABLET 0.5 TAB PO DAILY BLOOD THINNER ( Reported) Review of Systems Review of Systems Constitutional: Reports: see HPI. 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 valve replacement February 1996 at [facility] evacuation of left arm hematoma pacemaker MVR Family History Relations & Conditions If Any: BROTHER FH: diabetes mellitus Psychosocial History Services at Home: Nursing, Oxygen, Physical Therapy ETOH Use: denies use Functional Ability ADLs Independent: dressing, eating, toileting, bathing. Ambulation: independent Exam & Diagnostic Data Last 24 Hrs of Vital Signs/I&O Vital Signs Date Time Temp Pulse Resp B/P Pulse O2 O2 Flow FiO2 Ox Delivery Rate 11/26 1247 97 Nasal 3.0L Cannula 11/26 1238 97.7 88 22 164/77 96 Nasal 3.0L Cannula 11/26 1118 98.0 72 22 164/74 99 Nasal 3.0L Cannula 11/26 0955 98 Nasal 3.0L Cannula 11/26 0902 98 Nasal 3.0L Cannula 11/26 0854 97.7 80 20 173/74 100 Nasal 3.0L Cannula Intake & Output 11/26 1600 11/26 0800 11/26 0000 Intake Total 0 Output Total Balance 0 Intake, Oral 0 Patient 166 lb Weight Last 48 Hrs of Labs/Thien: Laboratory Tests 11/26/16 0942: Anion Gap 12, Estimated GFR 11 L, BUN/Creatinine Ratio 7.3, Glucose 98, Calcium 9.4, Total Bilirubin 0.6, AST 19, ALT 35, Alkaline Phosphatase 113, Troponin I 0.02, Total Protein 6.8, Albumin 4.3, Globulin 2.5, Albumin/Globulin Ratio 1.7, CBC w Diff NO MAN DIFF REQ, RBC 3.82 L, MCV 96.2, MCH 30.9, RDW 15.7 H, MPV 8.1, Gran % 81.1 H, Lymphocytes % 9.0 L, Monocytes % 8.4, Eosinophils % 1.3, Basophils % 0.2, Absolute Granulocytes 5.2, Absolute Lymphocytes 0.6 L, Absolute Monocytes 0.5, Absolute Eosinophils 0.1, Absolute Basophils 0, PUBS MCHC 32.1 L Assessment/Plan Impression/Plan: Physical Exam: General: Well-developed white female on O2 in NAD Skin: No rash or jaundice HEENT: Conjunctivae pink, sclerae anicteric, mucous membranes moist Neck: Without masses or thyromegaly, no supraclavicular or cervical adenopathy Chest: Markedly diminished air entry bilaterally with scattered wheezing throughout both lung nino Heart: Regular rate and rhythm without S3 or rub; there is a left infraclavicular pacemaker in place Abdomen: Obese, soft and nontender without palpable masses or organomegaly Extremities: Without clubbing, cyanosis or edema; the left upper arm AVF is patent Neuro: She is awake and alert. No focal findings, no asterixis or myoclonus SIGNIFICANT DATA Blood work is reviewed. Hemoglobin 11.8 white count not elevated at 6.4 with no left shift INR was elevated before. INR from this morning pending. Chest x-ray showed ill-defined opacities involving both lobes which appears to be chronic. Previous CT done in 2014 showed significant emphysema and pneumomediastinum, previous mitral valve replacement. IMPRESSION This is a lady with very end-stage COPD with bullous emphysema, end-stage renal disease, atrial fibrillation, previous mitral valve replacement, severe pulmonary hypertension, metallic mitral valve on warfarin, anxiety and depression, previous microscopic hematuria with chronic anemia, now comes in with * Acute COPD exacerbation. * Unlikely pneumonia. * End-stage renal disease with some element of fluid overload. * Depression and anxiety. * Previous history of pneumothorax with a prolonged air leak with chronic scarring of the lung. * Paroxysmal atrial fibrillation. * S/p mitral valve replacement- metallic valve. Hence absolutely would need to be on warfarin. Recommendation Check inr and resume warfarin CT scan of the chest without contrast today or tomorrow. Can reduce her steroids to 40 mg every 12 tomorrow and switch to prednisone 40 daily from day after Urine for Legionella and pneumococcal antigen. Flu swab. Continue her current medication. By mouth Ceftin. Continue her current bronchodilator regimen. Albuterol nebulizer therapy 4 times a day when necessary for wheezing Sputum culture. We will follow closely Consult Acknowledgment - Thank you for your consult request.
[2016-11-26 18:56] VITALS: BP 157/99
--- NOTE | 2016-11-26 20:47 | CT SCAN REPORT ---
EXAMINATION: CT CHEST WITHOUT CONTRAST CLINICAL INFORMATION: Progressive dyspnea COMPARISON: Multiple priors, most recently chest radiograph from today. TECHNIQUE: Multidetector volumetric CT imaging of the chest was done. Axial MIP volume rendering provided. Sagittal and coronal reformatted images were obtained. DLP: 368 mGy-cm. 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 Median sternotomy wires. LUNGS: The central airways are patent. There is severe centrilobular emphysema. Mild bronchial wall thickening of the lower lobes. Minimal bibasilar atelectasis. No pneumothorax. MEDIASTINUM: The heart is enlarged. Coronary artery calcifications. No pericardial effusion. Prominent mediastinal lymph nodes are seen. There is a precarinal node measuring 1.8 x 1.6 cm on image 26/70. Prominent nodes are seen in the AP window. PLEURA: There is no pleural effusion. Prominent calcific thickening along the right major fissure.. AXILLA: No lymphadenopathy. UPPER ABDOMEN: Calcifications associated with the spleen. OSSEOUS STRUCTURES: Mild degenerative changes of the spine. Status post median sternotomy. IMPRESSION: Severe emphysema. Lower lobe bronchial wall thickening noted could be chronic or associated with an acute small airways process. Prominent mediastinal lymph node is similar to prior imaging.
[2016-11-26 21:16] VITALS: BP 160/84
[2016-11-26 22:51] VITALS: BP 152/76
--- NOTE | 2016-11-27 07:23 | NUR ---
PT ASKED NSG TO CHECK INSIDE NOSTRILS. PT STATES WAS REMOVING SCABS FROM INSIDE NOSTRILS LAST WEEK WHEN HER FINGER WENT THROUGH FROM LEFT TO RIGHT SIDE. OPENING IS SEEN B/T LEFT AND RIGHT SIDES. NO BLEEDING NOTED. PER PT NO PAIN TO NOSTRILS. DR BARONE NOTIFIED.
--- NOTE | 2016-11-27 08:00 | PN- Housestaff ---
RAYO LANE,AGUSTO 11/27/16 0759: Subjective Follow-up For: aecopd Subjective: Patient seen and examined bedside. Patient states that her breathing is better than compared to yesterday during admission. She does still endorse shortness of breath on minimal exertion. She denies any chest pain, palpitation, dizziness, nausea, vomiting, fever, chills, abdominal pain or dysuria. No acute overnight event reported by nursing. Review of Systems Constitutional: Reports: no symptoms. Objective Last 24 Hrs of Vital Signs/I&O Vital Signs Date Time Temp Pulse Resp B/P Pulse O2 O2 Flow FiO2 Ox Delivery Rate 11/27 0000 98 Nasal 3.0L Cannula 11/26 2300 98.0 11/26 2251 18.0 74 18 152/76 99 11/26 2116 100 160/84 11/26 1925 Nasal 4.0L Cannula 11/26 1856 98.1 88 18 157/99 98 11/26 1852 97 Nasal 4.0L Cannula 11/26 1740 97 Nasal 3.0L Cannula 11/26 1247 97 Nasal 3.0L Cannula 11/26 1238 97.7 88 22 164/77 96 Nasal 3.0L Cannula 11/26 1118 98.0 72 22 164/74 99 Nasal 3.0L Cannula 11/26 0955 98 Nasal 3.0L Cannula 11/26 0902 98 Nasal 3.0L Cannula 11/26 0854 97.7 80 20 173/74 100 Nasal 3.0L Cannula Intake & Output 11/27 1600 02/04 0800 02 0000 Intake Total 120 240 Output Total 100 Balance 120 140 Intake, Oral 120 240 Output, Urine 100 Patient 72.348 kg 71.724 kg Weight Physical Exam General Appearance: Alert, Oriented X3, Cooperative Other Physical Findings: HEENT Atraumatic, PERRLA, EOMI Neck Supple, No JVD, No thryomegaly Lymphatic Cervical nl Cardiovascular Regular Rate, Normal S1, Normal S2 Lungs decreased breath sounds bilaterally. Expiratory wheezing, less profound compared to yesterday. Abdomen Normal Bowel Sounds, Soft, No Tenderness, No Hepatospenomegaly, No Masses Extremities No Clubbing, No Cyanosis, trace Edema,Normal Pulses Current Medications: Current Medications Sig/Tripp Start time Last Medication Dose Route Stop Time Status Admin Acetaminophen 650 MG Q6P PRN 11/26 1445 AC PO Albuterol Sulfate 3 ML FOUR TIMES A DAY PRN 11/27 1515 AC 11/27 INH 1623 Albuterol Sulfate 3 ML EVERY 4 HRS/AWAKE 11/26 1999 DC 11/27 INH 1102 Amlodipine Besylate 10 MG AT BEDTIME 11/26 2200 AC PO Budesonide/ 2 PUF BID 11/26 1433 AC 11/27 Formoterol Fumarate INH 0934 Cefuroxime Sodium 250 MG Q12 11/26 2200 CAN PO Cefuroxime Sodium 250 MG 11/26 AC 11/26 PO 2308 Cholecalciferol 1,000 IU DAILY 11/27 1000 AC 11/27 PO 0945 Diltiazem HCl 120 MG DAILY 11/26 1433 AC 11/27 PO 0947 Epoetin Jerson 4,000 UNIT MoWeFr 11/26 1412 AC IV Furosemide 80 MG QSUN 11/28 0700 AC PO Furosemide 80 MG SEE ADMIN CRITERIA 11/27 2200 DC PO Furosemide 80 MG DAILY 11/27 1000 DC PO Furosemide 80 MG TU THURS SAT 11/27 1000 AC 11/27 PO 0946 Guaifenesin 600 MG Q12 11/26 2200 AC 11/27 PO 0946 Lorazepam 2 MG BID PRN 11/26 1445 AC 11/26 PO 2315 Methylprednisolone 40 MG Q8 11/27 0600 AC 11/27 IV 11/27 2300 1306 Oxycodone HCl 15 MG Q4P PRN 11/26 1445 AC 11/27 PO 1305 Paricalcitol 2.5 MCG MoWeFr 11/26 1415 AC IV Prednisone 40 MG DAILY 11/28 1000 AC PO Sertraline HCl 100 MG DAILY 11/27 1000 AC 11/27 PO 0945 Sevelamer Carbonate 800 MG WM 11/26 1700 AC 11/27 PO 1235 Tiotropium [place] 1 PUF DAILY 11/27 1000 AC 11/27 INH 0936 Last 24 Hrs of Lab/Thien Results Last 24 Hrs of Labs/Mics: Laboratory Tests 11/27/16 0835: PT 40.4 H, INR 3.90 H 11/27/16 0740: Anion Gap 10, Estimated GFR 15 L, BUN/Creatinine Ratio 9.1, CBC w Diff NO MAN DIFF REQ, RBC 3.80 L, MCV 94.7, MCH 31.0, RDW 15.3 H, MPV 8.6, Gran % 81.0 H, Lymphocytes % 10.2 L, Monocytes % 8.7, Eosinophils % 0, Basophils % 0.1, Absolute Granulocytes 3.0, Absolute Lymphocytes 0.4 L, Absolute Monocytes 0.3, Absolute Eosinophils 0, Absolute Basophils 0, PUBS MCHC 32.8 L Microbiology 11/27 1133 URINE ROUT: Legionella Antigen - COMP 11/27 1133 URINE ROUT: Streptococcus pneumoniae Antigen (M - COMP Assessment/Plan Assessment: This 66-year-old female with a significant past medical history of severe COPD, pulmonary hypertension, presents with symptoms that are consistent with acute exacerbation of COPD (worsening dyspnea, increased cough, and increased sputum production). Impression and Plan COPD exacerbation * Keep O2 saturation over 92% * TRC nebs * switched Solu-Medrol IV to prednisone 40 mg * urine strep and Legionella negative. * Pulmonaryon board (appreciated) * Cefuroxime 250mg q 24 (renally adjusted dose). Azithromycin Is contraindicated due to ESRD on dialysis * Continue Tuesday schedule * Renal dialysis diet * Continue Lasix every every day except dialysis days afib on warfarin * Hold off Coumadin today as INR is 3.9 * Recheck INR tomorrow and dose Coumadin accordingly with target of 3.0 * Continue diltiazem Chronic back pain/anxiety/depression * Continue oxycodone and Ativan * cont Lexapro Problem List: 1. COPD Pain Ratin Pain Location: lower back Pain Goal: Pain 4 or less Pain Plan: APAP mild pain oxycodone moderate Tomorrow's Labs & Rationales: BEP-ESRD ASHISH EMMANUEL MD 11/27/16 1514: Attending MD Review Statement Attending Statement Attending MD Statement: examined this patient, discuss w/resident/PA/MACHINE FORMER, reviewed EMR data (avail), reviewed images, amended to note Attending Assessment/Plan: Mrs. Freeman notes fatigue which he says is usual postdialysis which she received today. She also notes productive cough of small amounts of yellowish sputum. She denies chest pain and palpitations. She denies nausea and vomiting. She is afebrile with stable vital signs and O2 saturation. Pulmonary exam reveals mildly prolonged expiratory phase with musical wheezes. Her INR today is suppertherapeutic. We should continue our present modalities of nebulizer treatments and IV steroids. Dialysis will be scheduled as per renal. Warfarin should be withheld until her INR is below 3. We should continue her cefuroxime.
[2016-11-27 08:07] VITALS: BP 120/77
[2016-11-27 08:28] LABS: ABSOLUTE BASOPHIL COUNT 0 /CUMM (0.0-0.2); ABSOLUTE EOSINOPHIL COUNT 0 /CUMM (0.0-0.7); ABSOLUTE LYMPH COUNT 0.4 /CUMM (1.2-3.4); ABSOLUTE MONOCYTE COUNT 0.3 /CUMM (0.10-0.60); BASOPHIL % 0.1 % (0.0-2.0); EOSINOPHIL % 0 % (0-5); MEAN CORPUSCULAR HGB CONC 32.8 G/DL (33.0-37.0); MEAN CORPUSCULAR VOLUME 94.7 FL (81.0-99.0); MEAN PLATELET VOLUME 8.6 FL (7.4-10.4); PLATELET COUNT 232 /CUMM (130-400); RBC DISTRIBUTION WIDTH 15.3 % (11.5-14.5); WHITE BLOOD CELL COUNT 3.7 /CUMM (4.8-10.8)
[2016-11-27 09:02] LABS: PT 40.4 SEC (9.4-12.5)
--- NOTE | 2016-11-27 14:09 | PN- Pulmonary ---
Subjective HPI/Critical Care Issues: Doing much better afebrile Wheezing better Objective Current Medications: Current Medications Sig/Tripp Start time Last Medication Dose Route Stop Time Status Admin Acetaminophen 650 MG Q6P PRN 11/26 1445 AC PO Albuterol Sulfate 3 ML EVERY 4 HRS/AWAKE 11/26 1999 AC 11/27 INH 1102 Amlodipine Besylate 10 MG AT BEDTIME 11/26 2200 AC PO Budesonide/ 2 PUF BID 11/26 1433 AC 11/27 Formoterol Fumarate INH 0934 Cefuroxime Sodium 250 MG Q12 11/26 2200 CAN PO Cefuroxime Sodium 250 MG 11/26 AC 11/26 PO 2308 Cholecalciferol 1,000 IU DAILY 11/27 1000 AC 11/27 PO 0945 Diltiazem HCl 120 MG DAILY 11/26 1433 AC 11/27 PO 0947 Epoetin Jerson 4,000 UNIT MoWeFr 11/26 1412 AC IV Furosemide 80 MG QSUN 11/28 0700 AC PO Furosemide 80 MG SEE ADMIN CRITERIA 11/27 2200 DC PO Furosemide 80 MG DAILY 11/27 1000 DC PO Furosemide 80 MG TUES THURS SAT 11/27 1000 AC 11/27 PO 0946 Guaifenesin 600 MG Q12 11/26 2200 AC 11/27 PO 0946 Lorazepam 2 MG BID PRN 11/26 1445 AC 11/26 PO 2315 Methylprednisolone 40 MG Q8 11/27 0600 AC 11/27 IV 1306 Methylprednisolone 80 MG ONCE ONE 11/26 1500 DC 11/26 IV 11/26 1501 1900 Oxycodone HCl 15 MG Q4P PRN 11/26 1445 AC 11/27 PO 1305 Paricalcitol 2.5 MCG MoWeFr 11/26 1415 AC IV Sertraline HCl 100 MG DAILY 11/27 1000 AC 11/27 PO 0945 Sevelamer Carbonate 800 MG WM 11/26 1700 AC 11/27 PO 1235 Tiotropium [place] 1 PUF DAILY 11/27 1000 AC 11/27 INH 0936 Warfarin Sodium 2.5 MG COUMADIN 1700 ONE 11/26 1700 DC 11/26 PO 11/26 1701 1905 Vital Signs & I&O Last 24 Hrs of Vitals and I&O: Vital Signs Date Time Temp Pulse Resp B/P Pulse O2 O2 Flow FiO2 Ox Delivery Rate 11/27 0807 97.8 75 20 120/77 99 Nasal 3.0L Cannula 11/27 0803 99 Nasal 3.0L Cannula 11/27 0800 99 Nasal 3.0L Cannula 11/27 0000 98 Nasal 3.0L Cannula 11/26 2300 98.0 11/26 2251 18.0 74 18 152/76 99 11/26 2116 100 160/84 11/26 1925 Nasal 4.0L Cannula 11/26 1856 98.1 88 18 157/99 98 11/26 1852 97 Nasal 4.0L Cannula 11/26 1740 97 Nasal 3.0L Cannula Intake & Output 11/27 1600 11/27 0800 11/27 0000 Intake Total 120 240 Output Total 400 100 Balance -400 120 140 Intake, Oral 120 240 Output, Urine 400 100 Patient 160 lb 158 lb Weight Laboratory Tests 11/27 11/27 0835 0740 Chemistry Sodium (137 - 145 mmol/L) 140 Potassium (3.5 - 5.1 mmol/L) 4.9 Chloride (98 - 107 mmol/L) 99 Carbon Dioxide (22 - 30 mmol/L) 30 Anion Gap (5 - 16) 10 BUN (7 - 17 mg/dL) 29 H Creatinine (0.5 - 1.0 mg/dL) 3.2 H Estimated GFR (>60 ml/min) 15 L BUN/Creatinine Ratio (7 - 25 %) 9.1 Coagulation PT (9.4 - 12.5 SEC) 40.4 H INR (0.90 - 1.19) 3.90 H Hematology CBC w Diff NO MAN DIFF REQ WBC (4.8 - 10.8 /CUMM) 3.7 L RBC (4.20 - 5.40 /CUMM) 3.80 L Hgb (12.0 - 16.0 G/DL) 11.8 L Hct (37 - 47 %) 36.0 L MCV (81.0 - 99.0 FL) 94.7 MCH (27.0 - 31.0 PG) 31.0 RDW (11.5 - 14.5 %) 15.3 H Plt Count (130 - 400 /CUMM) 232 MPV (7.4 - 10.4 FL) 8.6 Gran % (42.2 - 75.2 %) 81.0 H Lymphocytes % (20.5 - 51.1 %) 10.2 L Monocytes % (1.7 - 9.3 %) 8.7 Eosinophils % (0 - 5 %) 0 Basophils % (0.0 - 2.0 %) 0.1 Absolute Granulocytes (1.4 - 6.5 /CUMM) 3.0 Absolute Lymphocytes (1.2 - 3.4 /CUMM) 0.4 L Absolute Monocytes (0.10 - 0.60 /CUMM) 0.3 Absolute Eosinophils (0.0 - 0.7 /CUMM) 0 Absolute Basophils (0.0 - 0.2 /CUMM) 0 PUBS MCHC (33.0 - 37.0 G/DL) 32.8 L / 0942 Chemistry Sodium (137 - 145 mmol/L) 141 Potassium (3.5 - 5.1 mmol/L) 5.1 Chloride (98 - 107 mmol/L) 104 Carbon Dioxide (22 - 30 mmol/L) 25 Anion Gap (5 - 16) 12 BUN (7 - 17 mg/dL) 29 H Creatinine (0.5 - 1.0 mg/dL) 4.0 H Estimated GFR (>60 ml/min) 11 L BUN/Creatinine Ratio (7 - 25 %) 7.3 Glucose (65 - 99 mg/dL) 98 Calcium (8.4 - 10.2 mg/dL) 9.4 Total Bilirubin (0.2 - 1.3 mg/dL) 0.6 AST (14 - 36 U/L) 19 ALT (9 - 52 U/L) 35 Alkaline Phosphatase (<127 U/L) 113 Troponin I (< 0.11 ng/ml) 0.02 Total Protein (6.3 - 8.2 g/dL) 6.8 Albumin (3.5 - 5.0 g/dL) 4.3 Globulin (1.9 - 4.2 gm/dL) 2.5 Albumin/Globulin Ratio (1.1 - 2.2 %) 1.7 Hematology CBC w Diff NO MAN DIFF REQ WBC (4.8 - 10.8 /CUMM) 6.4 RBC (4.20 - 5.40 /CUMM) 3.82 L Hgb (12.0 - 16.0 G/DL) 11.8 L Hct (37 - 47 %) 36.8 L MCV (81.0 - 99.0 FL) 96.2 MCH (27.0 - 31.0 PG) 30.9 RDW (11.5 - 14.5 %) 15.7 H Plt Count (130 - 400 /CUMM) 223 MPV (7.4 - 10.4 FL) 8.1 Gran % (42.2 - 75.2 %) 81.1 H Lymphocytes % (20.5 - 51.1 %) 9.0 L Monocytes % (1.7 - 9.3 %) 8.4 Eosinophils % (0 - 5 %) 1.3 Basophils % (0.0 - 2.0 %) 0.2 Absolute Granulocytes (1.4 - 6.5 /CUMM) 5.2 Absolute Lymphocytes (1.2 - 3.4 /CUMM) 0.6 L Absolute Monocytes (0.10 - 0.60 /CUMM) 0.5 Absolute Eosinophils (0.0 - 0.7 /CUMM) 0.1 Absolute Basophils (0.0 - 0.2 /CUMM) 0 PUBS MCHC (33.0 - 37.0 G/DL) 32.1 L Microbiology Date/Time Procedure - Status Source Growth 11/27 1134 Legionella Antigen - RECD URINE ROUT 11/27 1134 Streptococcus pneumoniae Antigen (M - RECD URINE ROUT Impression/Plan Impression/Plan Impression/Plan: Physical Exam: General: Well-developed white female on O2 in NAD Skin: No rash or jaundice HEENT: Conjunctivae pink, sclerae anicteric, mucous membranes moist Neck: Without masses or thyromegaly, no supraclavicular or cervical adenopathy Chest: Markedly diminished air entry bilaterally with scattered wheezing throughout both lung nino Heart: Regular rate and rhythm without S3 or rub; there is a left infraclavicular pacemaker in place Abdomen: Obese, soft and nontender without palpable masses or organomegaly Extremities: Without clubbing, cyanosis or edema; the left upper arm AVF is patent Neuro: She is awake and alert. No focal findings, no asterixis or myoclonus SIGNIFICANT DATA Blood work is reviewed. Hemoglobin 11.8 white count not elevated at 6.4 with no left shift INR was elevated before. INR from this morning pending. Chest x-ray showed ill-defined opacities involving both lobes which appears to be chronic. Previous CT done in 2014 showed significant emphysema and pneumomediastinum, previous mitral valve replacement. CT2/3 IMPRESSION: Severe emphysema. Lower lobe bronchial wall thickening noted could be chronic or associated with an acute small airways process. Prominent mediastinal lymph node is similar to prior imaging. IMPRESSION This is a lady with very end-stage COPD with bullous emphysema, end-stage renal disease, atrial fibrillation, previous mitral valve replacement, severe pulmonary hypertension, metallic mitral valve on warfarin, anxiety and depression, previous microscopic hematuria with chronic anemia, now comes in with * Acute COPD exacerbation. * NO pna * End-stage renal disease with some element of fluid overload. * Depression and anxiety. * Previous history of pneumothorax with a prolonged air leak with chronic scarring of the lung. * Paroxysmal atrial fibrillation. * S/p mitral valve replacement- metallic valve. Hence absolutely would need to be on warfarin. Recommendation Check inr and resume warfarin when INR is less than 3 Prednisone 40 daily from am Urine for Legionella and pneumococcal antigen. Continue her current medication. By mouth Ceftin. Continue her current bronchodilator regimen. Albuterol nebulizer therapy 4 times a day when necessary for wheezing Sputum culture. We will follow closely
[2016-11-27 15:39] VITALS: BP 122/74
[2016-11-27 22:25] VITALS: BP 140/68
[2016-11-27 23:50] VITALS: BP 140/74
[2016-11-28 00:25] VITALS: BP 162/70
--- NOTE | 2016-11-28 08:02 | PN- Housestaff ---
GALO BARNETT MD 11/28/16 0802: Subjective Follow-up For: Acute COPD exacerbation Subjective: Patient seen and examined at bedside this AM. She was concerned about her lack of bowel movement in 5 days. Otherwise, she reports her respiratory status is not back to baseline and and has continued wheeze. Review of Systems Constitutional: Denies: fever, weakness. EENTM: Denies: hearing changes, nasal congestion. Cardiovascular: Denies: chest pain, palpitations. Respiratory: Reports: cough, short of breath, sputum production, wheezing. Gastrointestinal: Reports: constipation. Denies: abdominal pain. Genitourinary: Denies: dysuria. Musculoskeletal: Denies: back pain. Skin: Denies: lesions. Neurological/Psychological: Denies: confusion, headache, numbness. Hematologic/Endocrine: Denies: bruising, bleeding. Objective Last 24 Hrs of Vital Signs/I&O Vital Signs Date Time Temp Pulse Resp B/P Pulse O2 O2 Flow FiO2 Ox Delivery Rate 11/28 1703 96 Nasal 2.0L Cannula 11/28 1600 Nasal 3.0L Cannula 11/28 1551 98.2 75 20 128/64 98 Nasal 2.0L Cannula 11/28 0830 98 Nasal 3.0L Cannula 11/28 0822 97.8 85 20 142/71 97 Nasal 3.0L Cannula 11/28 0800 96 Nasal 3.0L Cannula 11/28 0025 98.7 80 20 162/70 92 02/05 0000 96 Nasal 3.0L Cannula 11/27 2350 98.0 75 19 140/74 98 Nasal 3.0L Cannula 11/27 2225 84 140/68 11/27 2112 96 Nasal 2.0L Cannula Intake & Output 11/28 1600 11/28 0800 02/05 0000 Intake Total 480 200 Output Total 300 200 300 Balance 180 -200 -100 Intake, Oral 480 200 Number 0 Bowel Movements Output, Urine 300 200 300 Patient 162 lb Weight Physical Exam General Appearance: Alert, Oriented X3, Cooperative, No Acute Distress Skin: No Rashes, No Significant Lesion HEENT: Atraumatic, Mucous Membr. moist/pink Neck: Supple Cardiovascular: Regular Rate, Normal S1, Normal S2 Lungs: Decreased air entry bilaterally with wheezing. Abdomen: Normal Bowel Sounds, Soft, No Tenderness Neurological: Normal Speech, Normal Tone Extremities: No Clubbing, No Cyanosis, No Edema, LUE AVF present Vascular: Pulses Symmetrical Current Medications: Current Medications Sig/Tripp Start time Last Medication Dose Route Stop Time Status Admin Acetaminophen 650 MG Q6P PRN 11/26 1445 AC PO Albuterol Sulfate 3 ML EVERY 4 HRS/AWAKE 11/28 1200 AC 11/28 INH 1641 Albuterol Sulfate 3 ML FOUR TIMES A DAY PRN 11/27 1515 DC 11/28 INH 0820 Amlodipine Besylate 10 MG AT BEDTIME 11/26 2200 DC PO Budesonide/ 2 PUF BID 11/26 1433 AC 11/28 Formoterol Fumarate INH 0833 Cefuroxime Sodium 250 MG 11/26 2000 AC 11/27 PO 2030 Cholecalciferol 1,000 IU DAILY 11/27 1000 AC 11/28 PO 0832 Diltiazem HCl 120 MG DAILY 11/26 1433 AC 11/28 PO 0831 Docusate Sodium 100 MG DAILY NEEDED PRN 11/28 0700 AC 11/28 PO 0832 Epoetin Jerson 4,000 UNIT MoWeFr 11/26 1412 AC IV Furosemide 80 MG James@1000 11/28 1000 AC 11/28 PO 0831 Furosemide 80 MG QSUN 11/28 0700 DC PO Furosemide 80 MG SEE ADMIN CRITERIA 11/27 2200 DC PO Furosemide 80 MG TUES THURS SAT 11/27 1000 AC 11/27 PO 0946 Guaifenesin 600 MG Q12 11/26 2200 AC 11/28 PO 0832 Lorazepam 2 MG BID PRN 11/26 1445 AC 11/27 PO 2331 Magnesium Hydroxide 30 ML ONE ONE 11/28 1545 DC 11/28 PO 11/28 1546 1642 Methylprednisolone 40 MG Q8 11/27 0600 DC 11/27 IV 11/27 2300 2208 Oxycodone HCl 15 MG Q4P PRN 11/26 1445 AC 11/28 PO 1241 Paricalcitol 2.5 MCG MoWeFr 11/26 1415 AC IV Prednisone 40 MG DAILY 11/28 1000 AC 11/28 PO 0832 Sertraline HCl 100 MG DAILY 11/27 1000 AC 11/28 PO 0832 Sevelamer Carbonate 800 MG WM 11/26 1700 AC 11/28 PO 1642 Tiotropium [place] 1 PUF DAILY 11/27 1000 AC 11/28 INH 0833 Last 24 Hrs of Lab/Thien Results Last 24 Hrs of Labs/Mics: Laboratory Tests 11/28/16 0805: Anion Gap 12, Estimated GFR 9 L, BUN/Creatinine Ratio 12.1, PT 34.2 H, INR 3.30 H, CBC w Diff NO MAN DIFF REQ, RBC 3.72 L, MCV 95.5, MCH 31.0, RDW 15.2 H, MPV 8.4, Gran % 88.5 H, Lymphocytes % 5.8 L, Monocytes % 5.7, Eosinophils % 0, Basophils % 0 L, Absolute Granulocytes 6.8 H, Absolute Lymphocytes 0.5 L, Absolute Monocytes 0.4, Absolute Eosinophils 0, Absolute Basophils 0, PUBS MCHC 32.5 L Microbiology 11/27 1901 LOWER RESP: Respiratory Culture - CAN Cancelled: SPECIMEN NOT RECEIVED IN LABORATORY 11/27 1901 LOWER RESP: Gram Stain - CAN Cancelled: SPECIMEN NOT RECEIVED IN LABORATORY Assessment/Plan Assessment: Ms. Freeman is a pleasant 66-year-old female with a significant past medical history of severe COPD, pulmonary hypertension, presents with symptoms that are consistent with acute exacerbation of COPD (worsening dyspnea, increased cough, and increased sputum production). Impression and Plan: COPD exacerbation * Keep O2 saturation over 92% * TRC nebs * Continue prednisone 40 gm PO daily, taper in 8 days * Urine strep and Legionella negative. * Pulmonary on board (appreciated) * Cefuroxime 250mg q 24 (renally adjusted dose) to continue ESRD on dialysis * Continue Tuesday schedule * Renal dialysis diet * Continue Lasix every day except dialysis days afib on warfarin * Hold off Coumadin today as INR is 3.3 * Recheck INR tomorrow and dose Coumadin accordingly with target of 3.0 * Continue diltiazem Chronic back pain/anxiety/depression * Continue oxycodone and Ativan * cont Lexapro Constipation * Patient given milk of mag at her request * Monitor Problem List: 1. Acute exacerbation of COPD with asthma Pain Ratin Pain Location: n/a Pain Goal: Remain pain free Pain Plan: Mild to severe pain pathway. Tomorrow's Labs & Rationales: CBC (dropping H&H), INR (to dose coumadin), BEP (pre-dialysis labs) ASHISH EMMANUEL MD 11/28/16 8819: Attending MD Review Statement Attending Statement Attending MD Statement: examined this patient, discuss w/resident/PA/PHOTOENGRAVING SUPERVISOR, agreed w/resident/PA/PHOTOENGRAVING SUPERVISOR, reviewed EMR data (avail), amended to note Attending Assessment/Plan: Mrs. Freeman states that her breathing continues to improve. Her major complaint at this time is constipation and she has not had a bowel movement since November 24. She is afebrile with stable vital signs. Pulmonary exam reveals fair to good air exchange with mild prolongation of the expiratory phase and a few end expiratory squeaks. Cardiovascular exam is stable. Laboratory determinations today are benign. He should continue to treat her exacerbation of COPD with oral antibiotics and steroids. We should continue her maintenance medication. We should treat her constipation with a bowel prep with regard to her renal status.
[2016-11-28 08:22] VITALS: BP 142/71
[2016-11-28 09:28] LABS: ABSOLUTE BASOPHIL COUNT 0 /CUMM (0.0-0.2); ABSOLUTE EOSINOPHIL COUNT 0 /CUMM (0.0-0.7); ABSOLUTE GRANULOCYTE CT 6.8 /CUMM (1.4-6.5); ABSOLUTE LYMPH COUNT 0.5 /CUMM (1.2-3.4); ABSOLUTE MONOCYTE COUNT 0.4 /CUMM (0.10-0.60); BASOPHIL % 0 % (0.0-2.0); EOSINOPHIL % 0 % (0-5); GRANULOCYTE % 88.5 % (42.2-75.2); HEMATOCRIT 35.6 % (37-47); MEAN CORPUSCULAR HGB CONC 32.5 G/DL (33.0-37.0); MEAN CORPUSCULAR VOLUME 95.5 FL (81.0-99.0); MEAN PLATELET VOLUME 8.4 FL (7.4-10.4); PLATELET COUNT 243 /CUMM (130-400); RBC DISTRIBUTION WIDTH 15.2 % (11.5-14.5); RED BLOOD CELL CT 3.72 /CUMM (4.20-5.40)
[2016-11-28 09:43] LABS: PT 34.2 SEC (9.4-12.5)
[2016-11-28 10:13] LABS: WHITE BLOOD CELL COUNT 7.7 /CUMM (4.8-10.8)
--- NOTE | 2016-11-28 12:14 | PN- Pulmonary ---
Subjective HPI/Critical Care Issues: Clinically better Using the bathroom when i saw her Objective Current Medications: Current Medications Sig/Tripp Start time Last Medication Dose Route Stop Time Status Admin Acetaminophen 650 MG Q6P PRN 11/26 1445 AC PO Albuterol Sulfate 3 ML EVERY 4 HRS/AWAKE 11/28 1200 AC 11/28 INH 1209 Albuterol Sulfate 3 ML FOUR TIMES A DAY PRN 11/27 1515 DC 11/28 INH 0820 Albuterol Sulfate 3 ML EVERY 4 HRS/AWAKE 11/26 2000 DC 11/27 INH 1102 Amlodipine Besylate 10 MG AT BEDTIME 11/26 2200 DC PO Budesonide/ 2 PUF BID 11/26 1433 AC 11/28 Formoterol Fumarate INH 0833 Cefuroxime Sodium 250 MG 11/26 AC 11/27 PO 2030 Cholecalciferol 1,000 IU DAILY 11/27 1000 AC 11/28 PO 0832 Diltiazem HCl 120 MG DAILY 11/26 1433 AC 11/28 PO 0831 Docusate Sodium 100 MG DAILY NEEDED PRN 11/28 0700 AC 11/28 PO 0832 Epoetin Jerson 4,000 UNIT MoWeFr 11/26 1412 AC IV Furosemide 80 MG James@1000 11/28 1000 AC 11/28 PO 0831 Furosemide 80 MG QSUN 11/28 07 DC PO Furosemide 80 MG SEE ADMIN CRITERIA 11/27 220 DC PO Furosemide 80 MG TUES THURS SAT 11/27 1000 AC 11/27 PO 0946 Guaifenesin 600 MG Q12 11/26 2200 AC 11/28 PO 0832 Lorazepam 2 MG BID PRN 11/26 1445 AC 11/27 PO 2331 Methylprednisolone 40 MG Q8 11/27 0600 DC 11/27 IV 11/27 2300 2208 Oxycodone HCl 15 MG Q4P PRN 11/26 1445 AC 11/28 PO 0517 Paricalcitol 2.5 MCG MoWeFr 11/26 1415 AC IV Prednisone 40 MG DAILY 11/28 1000 AC 11/28 PO 0832 Sertraline HCl 100 MG DAILY 11/27 1000 AC 11/28 PO 0832 Sevelamer Carbonate 800 MG WM 11/26 1700 AC 11/28 PO 1157 Tiotropium [place] 1 PUF DAILY 11/27 1000 AC 11/28 INH 0833 Vital Signs & I&O Last 24 Hrs of Vitals and I&O: Vital Signs Date Time Temp Pulse Resp B/P Pulse O2 O2 Flow FiO2 Ox Delivery Rate 11/28 0830 98 Nasal 3.0L Cannula 11/28 0822 97.8 85 20 142/71 97 Nasal 3.0L Cannula 11/28 0025 98.7 80 20 162/70 92 11/28 0000 96 Nasal 3.0L Cannula 11/27 2350 98.0 75 19 140/74 98 Nasal 3.0L Cannula 11/27 2225 84 140/68 11/27 2112 96 Nasal 2.0L Cannula 11/27 1646 96 Nasal 3.0L Cannula 11/27 1539 97.8 78 20 122/74 97 Intake & Output 11/28 1600 11/28 0800 11/28 0000 Intake Total 200 Output Total 200 300 Balance -200 -100 Intake, Oral 200 Number 0 Bowel Movements Output, Urine 200 300 Patient 162 lb Weight Laboratory Tests 11/28 11/27 0805 0835 Chemistry Sodium (137 - 145 mmol/L) 136 L Potassium (3.5 - 5.1 mmol/L) 5.0 Chloride (98 - 107 mmol/L) 99 Carbon Dioxide (22 - 30 mmol/L) 26 Anion Gap (5 - 16) 12 BUN (7 - 17 mg/dL) 57 H Creatinine (0.5 - 1.0 mg/dL) 4.7 H Estimated GFR (>60 ml/min) 9 L BUN/Creatinine Ratio (7 - 25 %) 12.1 Coagulation PT (9.4 - 12.5 SEC) 34.2 H 40.4 H INR (0.90 - 1.19) 3.30 H 3.90 H Hematology CBC w Diff NO MAN DIFF REQ WBC (4.8 - 10.8 /CUMM) 7.7 RBC (4.20 - 5.40 /CUMM) 3.72 L Hgb (12.0 - 16.0 G/DL) 11.5 L Hct (37 - 47 %) 35.6 L MCV (81.0 - 99.0 FL) 95.5 MCH (27.0 - 31.0 PG) 31.0 RDW (11.5 - 14.5 %) 15.2 H Plt Count (130 - 400 /CUMM) 243 MPV (7.4 - 10.4 FL) 8.4 Gran % (42.2 - 75.2 %) 88.5 H Lymphocytes % (20.5 - 51.1 %) 5.8 L Monocytes % (1.7 - 9.3 %) 5.7 Eosinophils % (0 - 5 %) 0 Basophils % (0.0 - 2.0 %) 0 L Absolute Granulocytes (1.4 - 6.5 /CUMM) 6.8 H Absolute Lymphocytes (1.2 - 3.4 /CUMM) 0.5 L Absolute Monocytes (0.10 - 0.60 /CUMM) 0.4 Absolute Eosinophils (0.0 - 0.7 /CUMM) 0 Absolute Basophils (0.0 - 0.2 /CUMM) 0 PUBS MCHC (33.0 - 37.0 G/DL) 32.5 L / 0740 Chemistry Sodium (137 - 145 mmol/L) 140 Potassium (3.5 - 5.1 mmol/L) 4.9 Chloride (98 - 107 mmol/L) 99 Carbon Dioxide (22 - 30 mmol/L) 30 Anion Gap (5 - 16) 10 BUN (7 - 17 mg/dL) 29 H Creatinine (0.5 - 1.0 mg/dL) 3.2 H Estimated GFR (>60 ml/min) 15 L BUN/Creatinine Ratio (7 - 25 %) 9.1 Hematology CBC w Diff NO MAN DIFF REQ WBC (4.8 - 10.8 /CUMM) 3.7 L RBC (4.20 - 5.40 /CUMM) 3.80 L Hgb (12.0 - 16.0 G/DL) 11.8 L Hct (37 - 47 %) 36.0 L MCV (81.0 - 99.0 FL) 94.7 MCH (27.0 - 31.0 PG) 31.0 RDW (11.5 - 14.5 %) 15.3 H Plt Count (130 - 400 /CUMM) 232 MPV (7.4 - 10.4 FL) 8.6 Gran % (42.2 - 75.2 %) 81.0 H Lymphocytes % (20.5 - 51.1 %) 10.2 L Monocytes % (1.7 - 9.3 %) 8.7 Eosinophils % (0 - 5 %) 0 Basophils % (0.0 - 2.0 %) 0.1 Absolute Granulocytes (1.4 - 6.5 /CUMM) 3.0 Absolute Lymphocytes (1.2 - 3.4 /CUMM) 0.4 L Absolute Monocytes (0.10 - 0.60 /CUMM) 0.3 Absolute Eosinophils (0.0 - 0.7 /CUMM) 0 Absolute Basophils (0.0 - 0.2 /CUMM) 0 PUBS MCHC (33.0 - 37.0 G/DL) 32.8 L Microbiology Date/Time Procedure - Status Source Growth 11/27 1901 Respiratory Culture - COLB LOWER RESP 11/27 1901 Gram Stain - COLB LOWER RESP 11/27 113 Legionella Antigen - COMP URINE ROUT 11/27 113 Streptococcus pneumoniae Antigen (M - COMP URINE ROUT Impression/Plan Impression/Plan Impression/Plan: Physical Exam: General: Well-developed white female on O2 in NAD Skin: No rash or jaundice HEENT: Conjunctivae pink, sclerae anicteric, mucous membranes moist Neck: Without masses or thyromegaly, no supraclavicular or cervical adenopathy Chest: Markedly diminished air entry bilaterally with scattered wheezing throughout both lung nino Heart: Regular rate and rhythm without S3 or rub; there is a left infraclavicular pacemaker in place Abdomen: Obese, soft and nontender without palpable masses or organomegaly Extremities: Without clubbing, cyanosis or edema; the left upper arm AVF is patent Neuro: She is awake and alert. No focal findings, no asterixis or myoclonus SIGNIFICANT DATA Blood work is reviewed. Hemoglobin 11.8 white count not elevated at 6.4 with no left shift INR was elevated before. INR from this morning pending. Chest x-ray showed ill-defined opacities involving both lobes which appears to be chronic. Previous CT done in 2014 showed significant emphysema and pneumomediastinum, previous mitral valve replacement. CT2/3 IMPRESSION: Severe emphysema. Lower lobe bronchial wall thickening noted could be chronic or associated with an acute small airways process. Prominent mediastinal lymph node is similar to prior imaging. IMPRESSION This is a lady with very end-stage COPD with bullous emphysema, end-stage renal disease, atrial fibrillation, previous mitral valve replacement, severe pulmonary hypertension, metallic mitral valve on warfarin, anxiety and depression, previous microscopic hematuria with chronic anemia, now comes in with * Resolving Acute COPD exacerbation. * NO pna * End-stage renal disease with some element of fluid overload. * Depression and anxiety. * Previous history of pneumothorax with a prolonged air leak with chronic scarring of the lung. * Paroxysmal atrial fibrillation. * S/p mitral valve replacement- metallic valve. Hence absolutely would need to be on warfarin. Recommendation Check inr and resume warfarin when INR is less than 3 Prednisone 40 daily and taper in 8 days Continue her current medication. By mouth Ceftin for seven days Continue her current bronchodilator regimen. Albuterol nebulizer therapy 4 times a day when necessary for wheezing We will follow closely
[2016-11-28 15:51] VITALS: BP 128/64
[2016-11-29 00:30] VITALS: BP 128/64
--- NOTE | 2016-11-29 07:58 | PN- Pulmonary ---
Subjective HPI/Critical Care Issues: Shortness breath is improved compared to admission Objective Current Medications: Current Medications Sig/Tripp Start time Last Medication Dose Route Stop Time Status Admin Acetaminophen 650 MG Q6P PRN 11/26 1445 AC PO Albuterol Sulfate 3 ML EVERY 4 HRS/AWAKE 11/28 1200 AC 11/28 INH 2039 Albuterol Sulfate 3 ML FOUR TIMES A DAY PRN 11/27 1515 DC 11/28 INH 0820 Budesonide/ 2 PUF BID 11/26 1433 AC 11/28 Formoterol Fumarate INH 2237 Cefuroxime Sodium 250 MG 2000 11/26 2000 AC 11/28 PO 1903 Cholecalciferol 1,000 IU DAILY 11/27 1000 AC 11/28 PO 0832 Diltiazem HCl 120 MG DAILY 11/26 1433 AC 11/28 PO 0831 Docusate Sodium 100 MG DAILY NEEDED PRN 11/28 0700 AC 11/28 PO 0832 Epoetin J[place] 4,000 UNIT MoWeFr 11/26 1412 AC IV Furosemide 80 MG James@1000 11/28 1000 AC 11/28 PO 0831 Furosemide 80 MG TUES THURS SAT 11/27 1000 AC 11/27 PO 0946 Guaifenesin 600 MG Q12 11/26 2200 AC 11/28 PO 2236 Lorazepam 2 MG BID PRN 11/26 1445 AC 11/28 PO 2236 Magnesium Hydroxide 30 ML ONE ONE 11/28 1545 DC 11/28 PO 11/28 1546 1642 Oxycodone HCl 15 MG Q4P PRN 11/26 1445 AC 11/29 PO 0610 Paricalcitol 2.5 MCG MoWeFr 11/26 1415 AC IV Prednisone 40 MG DAILY 11/28 1000 AC 11/28 PO 0832 Sertraline HCl 100 MG DAILY 11/27 1000 AC 11/28 PO 0832 Sevelamer Carbonate 800 MG WM 11/26 1700 AC 11/28 PO 1642 Tiotropium [place] 1 PUF DAILY 11/27 1000 AC 11/28 INH 0833 Vital Signs & I&O Last 24 Hrs of Vitals and I&O: Vital Signs Date Time Temp Pulse Resp B/P Pulse O2 O2 Flow FiO2 Ox Delivery Rate 11/29 0030 97.8 75 20 128/64 96 11/28 2133 96 Nasal 2.0L Cannula 11/28 170 96 Nasal 2.0L Cannula 11/28 1600 Nasal 3.0L Cannula 11/28 1551 98.2 75 20 128/64 98 Nasal 2.0L Cannula 11/28 0830 98 Nasal 3.0L Cannula 11/28 0822 97.8 85 20 142/71 97 Nasal 3.0L Cannula 11/28 0800 96 Nasal 3.0L Cannula Intake & Output 11/29 0800 11/29 0000 11/28 1600 Intake Total 650 480 Output Total 200 300 Balance 450 180 Intake, Oral 650 480 Output, Urine 200 300 Patient 165 lb Weight Oxygen saturation 2 L 96% exam for chest showed scattered faint expiratory wheezes cardiac exam shows normal S1 and S2 without murmurs extremities have 1+ symmetrical edema Impression/Plan Impression/Plan Impression/Plan: C6-year-old woman with severe oxygen-dependent COPD end-stage renal disease on dialysis has improved exacerbation of COPD. Recommendations: Continue nebulized bronchodilators continue present dose of prednisone. Dialysis for today PT eval
[2016-11-29 08:35] VITALS: BP 140/73
--- NOTE | 2016-11-29 09:07 | PN- Housestaff ---
Subjective Follow-up For: AECOPD Subjective: Pt is seen and examined at bedside. Pt states her breathing is much bater but still endorses dyspnea on ambulation. She denies any chest pain/palpitation, fever/chills,nausea,vomiting,abdominal pain or dysuria. Review of Systems Constitutional: Denies: see HPI. Objective Last 24 Hrs of Vital Signs/I&O Vital Signs Date Time Temp Pulse Resp B/P Pulse O2 O2 Flow FiO2 Ox Delivery Rate 11/29 1609 95 Nasal 4.0L Cannula 11/29 0835 97.7 80 20 140/73 98 Nasal 3.0L Cannula 11/29 0804 97 Nasal 3.0L Cannula 11/29 08 93 Nasal 3.0L Cannula 11/29 0030 97.8 75 20 128/64 96 11/29 0000 96 Nasal 3.0L Cannula Intake & Output 11/29 1600 11/29 0800 11/29 0000 Intake Total 500 170 650 Output Total 80 200 200 Balance 420 -30 450 Intake, IV 0 Intake, Oral 500 170 650 Number 0 Bowel Movements Output, Urine 80 200 200 Patient 74.984 kg Weight Physical Exam General Appearance: Alert, Oriented X3, Cooperative Skin: No Significant Lesion HEENT: Mucous Membr. moist/pink Neck: Supple, No JVD Cardiovascular: Regular Rate, Normal S1, Normal S2 Lungs: mild wheezing b/l Abdomen: Normal Bowel Sounds, Soft Neurological: Normal Speech Extremities: No Clubbing, No Cyanosis Current Medications: Current Medications Sig/Tripp Start time Last Medication Dose Route Stop Time Status Admin Acetaminophen 650 MG Q6P PRN 11/26 1445 AC PO Albuterol Sulfate 2 PUF Q4P PRN 11/29 2145 AC INH Albuterol Sulfate 3 ML EVERY 4 HRS/AWAKE 11/28 1200 AC 11/29 INH 2132 Budesonide/ 2 PUF BID 11/26 1433 AC 11/29 Formoterol Fumarate INH 2027 Cefuroxime Sodium 250 MG 2000 11/26 2000 AC 11/29 PO 2025 Cholecalciferol 1,000 IU DAILY 11/27 1000 AC 11/29 PO 1012 Diltiazem HCl 120 MG DAILY 11/26 1433 AC 11/29 PO 1012 Docusate Sodium 100 MG DAILY NEEDED PRN 11/28 0700 AC 11/29 PO 2202 Epoetin J[place] 4,000 UNIT MoWeFr 11/26 1412 AC IV Furosemide 80 MG James@1000 11/28 1000 AC 11/28 PO 0831 Furosemide 80 MG TUES THURS SAT 11/27 1000 AC 11/27 PO 0946 Guaifenesin 600 MG Q12 11/26 2200 AC 11/29 PO 202 Lorazepam 2 MG BID PRN 11/26 1445 AC 11/28 PO 2236 Oxycodone HCl 15 MG Q4P PRN 11/26 1445 AC 11/29 PO 202 Paricalcitol 2.5 MCG MoWeFr 11/26 1415 AC IV Patient Medication 1 UNIT 1700 11/29 1700 DC 11/29 Teaching ED 11/29 1701 1642 Prednisone 40 MG DAILY 11/28 1000 AC 11/29 PO 1012 Sertraline HCl 100 MG DAILY 11/27 1000 AC 11/29 PO 1012 Sevelamer Carbonate 800 MG WM 11/26 1700 AC 11/29 PO 1641 Tiotropium [place] 1 PUF DAILY 11/27 1000 AC 11/29 INH 1012 Warfarin Sodium 2.5 MG COUMADIN 1700 11/29 1700 AC 11/29 PO 11/29 2359 1642 Last 24 Hrs of Lab/Thien Results Last 24 Hrs of Labs/Mics: Laboratory Tests 11/29/16 1215: Anion Gap 15, Estimated GFR 7 L, BUN/Creatinine Ratio 14.7, PT 27.2 H, INR 2.62 H, CBC w Diff NO MAN DIFF REQ, RBC 3.71 L, MCV 95.2, MCH 30.6, RDW 15.6 H, MPV 8.3, Gran % 88.3 H, Lymphocytes % 4.0 L, Monocytes % 7.6, Eosinophils % 0.1, Basophils % 0 L, Absolute Granulocytes 12.1 H, Absolute Lymphocytes 0.5 L, Absolute Monocytes 1.0 H, Absolute Eosinophils 0, Absolute Basophils 0, PUBS MCHC 32.1 L Assessment/Plan Assessment: Ms. Freeman is a pleasant 66-year-old female with a significant past medical history of severe COPD, pulmonary hypertension, presents with symptoms that are consistent with acute exacerbation of COPD (worsening dyspnea, increased cough, and increased sputum production). Impression and Plan: COPD exacerbation * Keep O2 saturation over 92% * TRC nebs * Continue prednisone 40 gm PO daily, taper in 8 days * Urine strep and Legionella negative. * Pulmonary on board (appreciated) * Cefuroxime 250mg q 24 (renally adjusted dose) to continue ESRD on dialysis * Continue Tuesday schedule * Renal dialysis diet * Continue Lasix every day except dialysis days afib on warfarin * Hold off Coumadin today as INR is 3.3 * Recheck INR tomorrow and dose Coumadin accordingly with target of 3.0 * Continue diltiazem Chronic back pain/anxiety/depression * Continue oxycodone and Ativan * cont Lexapro Constipation * Patient given milk of mag at her request * Monitor #Disposition Awaiitng PT, possible discharge tomorrow. Problem List: 1. COPD with acute exacerbation Pain Ratin Pain Location: back Pain Goal: Pain 4 or less Pain Plan: apap for mild pain oxycodone for moderate pain Tomorrow's Labs & Rationales: BEP:dialysis patient and on lasix inr: coumadin dosing
--- NOTE | 2016-11-29 10:33 | PN- Att Addend ---
Attending Addendum Attending Brief Note Patients breathing is improved states she is very weak will continue treatment for her COPD exacerbation tapering steroids slowly, follow pulmonary's recommendations will have her hemodialysis today I will get a physical therapy evaluation to decide if the patient can go home Intake & Output 11/29 1600 11/29 0800 / 0000 / 1600 11/28 0800 11/28 0000 Intake Total 170 650 480 200 Output Total 200 200 300 200 300 Balance -30 450 180 -200 -100 Intake, IV 0 Intake, Oral 170 650 480 200 Number 0 0 Bowel Movements Output, Urine 200 200 300 200 300 Patient 165 lb 162 lb Weight Current Medications Sig/Tripp Start time Last Medication Dose Route Stop Time Status Admin Acetaminophen 650 MG Q6P PRN 11/26 1445 AC PO Albuterol Sulfate 3 ML EVERY 4 HRS/AWAKE 11/28 1200 AC 11/29 INH 0800 Budesonide/ 2 PUF BID 11/26 1433 AC 11/29 Formoterol Fumarate INH 1013 Cefuroxime Sodium 250 MG 2000 11/26 2000 AC 11/28 PO 1903 Cholecalciferol 1,000 IU DAILY 11/27 1000 AC 11/29 PO 1012 Diltiazem HCl 120 MG DAILY 11/26 1433 AC 11/29 PO 1012 Docusate Sodium 100 MG DAILY NEEDED PRN 11/28 0700 AC 11/28 PO 0832 Epoetin Jerson 4,000 UNIT MoWeFr 11/26 1412 AC IV Furosemide 80 MG James@1000 11/28 1000 AC 11/28 PO 0831 Furosemide 80 MG TUES THURS SAT 11/27 1000 AC 11/27 PO 0946 Guaifenesin 600 MG Q12 11/26 2200 AC 11/29 PO 1012 Lorazepam 2 MG BID PRN 11/26 1445 AC 11/28 PO 2236 Magnesium Hydroxide 30 ML ONE ONE 11/28 1545 DC 11/28 PO 11/28 1546 1642 Oxycodone HCl 15 MG Q4P PRN 11/26 1445 AC 11/29 PO 0610 Paricalcitol 2.5 MCG MoWeFr 11/26 1415 AC IV Prednisone 40 MG DAILY 11/28 1000 AC 11/29 PO 1012 Sertraline HCl 100 MG DAILY 11/27 1000 AC 11/29 PO 1012 Sevelamer Carbonate 800 MG WM 11/26 1700 AC 11/29 PO 0900 Tiotropium [place] 1 PUF DAILY 11/27 1000 AC 11/29 INH 1012 Laboratory Tests 11/28/16 0805: Anion Gap 12, Estimated GFR 9 L, BUN/Creatinine Ratio 12.1, PT 34.2 H, INR 3.30 H, CBC w Diff NO MAN DIFF REQ, RBC 3.72 L, MCV 95.5, MCH 31.0, RDW 15.2 H, MPV 8.4, Gran % 88.5 H, Lymphocytes % 5.8 L, Monocytes % 5.7, Eosinophils % 0, Basophils % 0 L, Absolute Granulocytes 6.8 H, Absolute Lymphocytes 0.5 L, Absolute Monocytes 0.4, Absolute Eosinophils 0, Absolute Basophils 0, PUBS MCHC 32.5 L Microbiology 11/27 1134 URINE ROUT: Legionella Antigen - COMP 11/27 113 URINE ROUT: Streptococcus pneumoniae Antigen (M - COMP
--- NOTE | 2016-11-29 11:33 | NUR ---
PHYSICAL THERAPY- CONSULT RECEIVED, CHART REVIEWED. PT INDEPENDENLY AMBULATING, NO SKILLED ACUTE P.T. NEEDS IDENTIFIED, WILL NOT FOLLOW.
[2016-11-29 12:57] LABS: PT 27.2 SEC (9.4-12.5)
--- NOTE | 2016-11-29 13:06 | PN- Nephrology ---
Assessment/Plan Assessment: 1. ESRD 2. COPD with exacerbation 3. Multiple comorbidities Suggestion: 1. Hemodialysis today in progress with minimal ultrafiltration (she is below her target weight) over 3 hours as tolerated 2. Continue management of her COPD exacerbation as you are doing 3. Mobilize Subjective Subjective: Seen with hemodialysis. Patient still complaining of some wheezing. No chest pain or other symptoms at this time. Objective Vital Signs and I&Os Vital Signs Date Time Temp Pulse Resp B/P Pulse O2 O2 Flow FiO2 Ox Delivery Rate 11/29 0835 97.7 80 20 140/73 98 Nasal 3.0L Cannula 11/29 0804 97 Nasal 3.0L Cannula 11/29 0030 97.8 75 20 128/64 96 11/29 0000 96 Nasal 3.0L Cannula 11/28 2133 96 Nasal 2.0L Cannula 11/28 1703 96 Nasal 2.0L Cannula 11/28 1600 Nasal 3.0L Cannula 11/28 1551 98.2 75 20 128/64 98 Nasal 2.0L Cannula Intake & Output 11/29 1600 11/29 0400 11/28 1600 11/28 0400 11/27 1600 11/27 0400 Intake Total 170 650 480 200 920 240 Output Total 200 200 500 300 400 100 Balance -30 450 -20 -100 520 140 Intake, IV 0 50 Intake, Oral 170 650 480 200 870 240 Number 0 0 0 Bowel Movements Output, Urine 200 200 500 300 400 100 Patient 165 lb 162 lb 160 lb 158 lb Weight Physical Exam: General: Well-developed white female on O2 in NAD Skin: No rash or jaundice HEENT: Conjunctivae pink, sclerae anicteric, mucous membranes moist Neck: Without masses or thyromegaly, no supraclavicular or cervical adenopathy Chest: Diminished air entry bilaterally with scattered wheezing throughout both lung nino Heart: Regular rate and rhythm without S3 or rub; there is a left infraclavicular pacemaker in place Abdomen: Obese, soft and nontender without palpable masses or organomegaly Extremities: Without clubbing, cyanosis or edema; the left upper arm AVF is patent Neuro: She is awake and alert. No focal findings, no asterixis or myoclonus Current Medications: Current Medications Sig/Tripp Start time Last Medication Dose Route Stop Time Status Admin Acetaminophen 650 MG Q6P PRN 11/26 1445 AC PO Albuterol Sulfate 3 ML EVERY 4 HRS/AWAKE 11/28 1200 AC 11/29 INH 0800 Budesonide/ 2 PUF BID 11/26 1433 AC 11/29 Formoterol Fumarate INH 1013 Cefuroxime Sodium 250 MG 11/26 2000 AC 11/28 PO 1903 Cholecalciferol 1,000 IU DAILY 11/27 1000 AC 11/29 PO 1012 Diltiazem HCl 120 MG DAILY 11/26 1433 AC 11/29 PO 1012 Docusate Sodium 100 MG DAILY NEEDED PRN 11/28 0700 AC 11/28 PO 0832 Epoetin Jerson 4,000 UNIT MoWeFr 11/26 1412 AC IV Furosemide 80 MG James@1000 11/28 1000 AC 11/28 PO 0831 Furosemide 80 MG TUES THURS SAT 11/27 1000 AC 11/27 PO 0946 Guaifenesin 600 MG Q12 11/26 2200 AC 11/29 PO 1012 Lorazepam 2 MG BID PRN 11/26 1445 AC 11/28 PO 2236 Magnesium Hydroxide 30 ML ONE ONE 11/28 1545 DC 11/28 PO 11/28 1546 1642 Oxycodone HCl 15 MG Q4P PRN 11/26 1445 AC 11/29 PO 1033 Paricalcitol 2.5 MCG MoWeFr 11/26 1415 AC IV Prednisone 40 MG DAILY 11/28 1000 AC 11/29 PO 1012 Sertraline HCl 100 MG DAILY 11/27 1000 AC 11/29 PO 1012 Sevelamer Carbonate 800 MG WM 11/26 1700 AC 11/29 PO 0900 Tiotropium [place] 1 PUF DAILY 11/27 1000 AC 11/29 INH 1012 Results Pertinent Lab Results: Laboratory Tests 11/29 11/28 11/27 1215 0805 0835 Chemistry Sodium (137 - 145 mmol/L) Pending 136 L Potassium (3.5 - 5.1 mmol/L) Pending 5.0 Chloride (98 - 107 mmol/L) Pending 99 Carbon Dioxide (22 - 30 mmol/L) Pending 26 Anion Gap (5 - 16) Pending 12 BUN (7 - 17 mg/dL) Pending 57 H Creatinine (0.5 - 1.0 mg/dL) Pending 4.7 H Estimated GFR (>60 ml/min) 9 L BUN/Creatinine Ratio (7 - 25 %) Pending 12.1 Coagulation PT (9.4 - 12.5 SEC) 27.2 H 34.2 H 40.4 H INR (0.90 - 1.19) 2.62 H 3.30 H 3.90 H Hematology CBC w Diff Pending NO MAN DIFF REQ WBC (4.8 - 10.8 /CUMM) Pending 7.7 RBC (4.20 - 5.40 /CUMM) Pending 3.72 L Hgb (12.0 - 16.0 G/DL) Pending 11.5 L Hct (37 - 47 %) Pending 35.6 L MCV (81.0 - 99.0 FL) Pending 95.5 MCH (27.0 - 31.0 PG) Pending 31.0 RDW (11.5 - 14.5 %) Pending 15.2 H Plt Count (130 - 400 /CUMM) Pending 243 MPV (7.4 - 10.4 FL) Pending 8.4 Gran % (42.2 - 75.2 %) 88.5 H Lymphocytes % (20.5 - 51.1 %) 5.8 L Monocytes % (1.7 - 9.3 %) 5.7 Eosinophils % (0 - 5 %) 0 Basophils % (0.0 - 2.0 %) 0 L Absolute Granulocytes (1.4 - 6.5 /CUMM) 6.8 H Absolute Lymphocytes (1.2 - 3.4 /CUMM) 0.5 L Absolute Monocytes (0.10 - 0.60 /CUMM) 0.4 Absolute Eosinophils (0.0 - 0.7 /CUMM) 0 Absolute Basophils (0.0 - 0.2 /CUMM) 0 PUBS MCHC (33.0 - 37.0 G/DL) Pending 32.5 L 11/27 11/26 0740 1534 Chemistry Sodium (137 - 145 mmol/L) 140 Potassium (3.5 - 5.1 mmol/L) 4.9 Chloride (98 - 107 mmol/L) 99 Carbon Dioxide (22 - 30 mmol/L) 30 Anion Gap (5 - 16) 10 BUN (7 - 17 mg/dL) 29 H Creatinine (0.5 - 1.0 mg/dL) 3.2 H Estimated GFR (>60 ml/min) 15 L BUN/Creatinine Ratio (7 - 25 %) 9.1 Coagulation PT Cancelled INR Cancelled Hematology CBC w Diff NO MAN DIFF REQ WBC (4.8 - 10.8 /CUMM) 3.7 L RBC (4.20 - 5.40 /CUMM) 3.80 L Hgb (12.0 - 16.0 G/DL) 11.8 L Hct (37 - 47 %) 36.0 L MCV (81.0 - 99.0 FL) 94.7 MCH (27.0 - 31.0 PG) 31.0 RDW (11.5 - 14.5 %) 15.3 H Plt Count (130 - 400 /CUMM) 232 MPV (7.4 - 10.4 FL) 8.6 Gran % (42.2 - 75.2 %) 81.0 H Lymphocytes % (20.5 - 51.1 %) 10.2 L Monocytes % (1.7 - 9.3 %) 8.7 Eosinophils % (0 - 5 %) 0 Basophils % (0.0 - 2.0 %) 0.1 Absolute Granulocytes (1.4 - 6.5 /CUMM) 3.0 Absolute Lymphocytes (1.2 - 3.4 /CUMM) 0.4 L Absolute Monocytes (0.10 - 0.60 /CUMM) 0.3 Absolute Eosinophils (0.0 - 0.7 /CUMM) 0 Absolute Basophils (0.0 - 0.2 /CUMM) 0 PUBS MCHC (33.0 - 37.0 G/DL) 32.8 L
[2016-11-29 13:12] LABS: ABSOLUTE BASOPHIL COUNT 0 /CUMM (0.0-0.2); ABSOLUTE EOSINOPHIL COUNT 0 /CUMM (0.0-0.7); HEMATOCRIT 35.4 % (37-47); MEAN PLATELET VOLUME 8.3 FL (7.4-10.4)
[2016-11-29 13:33] LABS: ABSOLUTE GRANULOCYTE CT 12.1 /CUMM (1.4-6.5); ABSOLUTE LYMPH COUNT 0.5 /CUMM (1.2-3.4); BASOPHIL % 0 % (0.0-2.0); EOSINOPHIL % 0.1 % (0-5); MEAN CORPUSCULAR HGB 30.6 PG (27.0-31.0); MEAN CORPUSCULAR HGB CONC 32.1 G/DL (33.0-37.0); MEAN CORPUSCULAR VOLUME 95.2 FL (81.0-99.0); PLATELET COUNT 254 /CUMM (130-400); RBC DISTRIBUTION WIDTH 15.6 % (11.5-14.5); RED BLOOD CELL CT 3.71 /CUMM (4.20-5.40)
[2016-11-29 13:38] LABS: WHITE BLOOD CELL COUNT 13.7 /CUMM (4.8-10.8)
[2016-11-29 14:11] LABS: GRANULOCYTE % 88.3 % (42.2-75.2)
[2016-11-29 23:58] VITALS: BP 130/56
--- NOTE | 2016-11-30 08:07 | PN- Pulmonary ---
Subjective HPI/Critical Care Issues: Patient is concerned about nasal irritation secondary to oxygen cannula. She remained short of breath. Objective Current Medications: Current Medications Sig/Tripp Start time Last Medication Dose Route Stop Time Status Admin Acetaminophen 650 MG Q6P PRN 11/26 1445 AC PO Albuterol Sulfate 2 PUF Q4P PRN 11/29 2145 AC INH Albuterol Sulfate 3 ML EVERY 4 HRS/AWAKE 11/28 1200 AC 11/30 INH 0758 Budesonide/ 2 PUF BID 11/26 1433 AC 11/29 Formoterol Fumarate INH 202 Cefuroxime Sodium 250 MG 2000 11/26 2000 AC 11/29 PO 202 Cholecalciferol 1,000 IU DAILY 11/27 1000 AC 11/29 PO 1012 Diltiazem HCl 120 MG DAILY 11/26 1433 AC 11/29 PO 1012 Docusate Sodium 100 MG .STK-MED ONE 11/29 2159 DC PO 11/29 2200 Docusate Sodium 100 MG DAILY NEEDED PRN 11/28 0700 AC 11/29 PO 2202 Epoetin J[place] 4,000 UNIT MoWeFr 11/26 1412 AC IV Furosemide 80 MG James@1000 11/28 1000 AC 11/28 PO 0831 Furosemide 80 MG TUES THURS SAT 11/27 1000 AC 11/27 PO 0946 Guaifenesin 600 MG Q12 11/26 2200 AC 11/29 PO 2025 Lorazepam 2 MG BID PRN 11/26 1445 AC 11/30 PO 0257 Oxycodone HCl 15 MG Q4P PRN 11/26 1445 AC 11/30 PO 0612 Paricalcitol 2.5 MCG MoWeFr 11/26 1415 AC IV Patient Medication 1 UNIT 1700 11/29 1700 DC 11/29 Teaching ED 11/29 1701 1642 Prednisone 40 MG DAILY 11/28 1000 AC 11/29 PO 1012 Sertraline HCl 100 MG DAILY 11/27 1000 AC 11/29 PO 1012 Sevelamer Carbonate 800 MG WM 11/26 1700 AC 11/29 PO 1641 Tiotropium [place] 1 PUF DAILY 11/27 1000 AC 11/29 INH 1012 Warfarin Sodium 2.5 MG COUMADIN 1700 11/29 1700 DC 11/29 PO 11/29 2359 1642 Vital Signs & I&O Last 24 Hrs of Vitals and I&O: Vital Signs Date Time Temp Pulse Resp B/P Pulse O2 O2 Flow FiO2 Ox Delivery Rate 11/30 799 99 Nasal 3.0L Cannula 11/30 0000 Nasal 3.0L Cannula 11/29 2358 98.1 71 18 130/56 98 Nasal 2.0L Cannula 11/29 1609 95 Nasal 4.0L Cannula 11/29 0835 97.7 80 20 140/73 98 Nasal 3.0L Cannula Intake & Output 11/30 1600 11/30 0811/30 0000 Intake Total Output Total 150 100 Balance -150 -100 Output, Urine 150 100 Patient 165 lb Weight Oxygen saturation 3 L 99% exam for chest shows faint expiratory wheezing cardiac exam shows regular S1 and S2 without murmurs Impression/Plan Impression/Plan Impression/Plan: C6-year-old woman with severe oxygen-dependent COPD end-stage renal disease on dialysis continues to have shortness of breath and low level bronchospasm. Recommendations: Continue nebulized bronchodilators continue present dose of prednisone. Dialysis for today PT eval. repeat chest x-ray
[2016-11-30 08:20] LABS: PT 21.4 SEC (9.4-12.5)
--- NOTE | 2016-11-30 08:29 | PN- Housestaff ---
Subjective Follow-up For: AECOPD Subjective: Pt is seen and observed at bedside. When asked wether she is ready to go home, she states that she feels not ready and weak. She still complains of shortness of breath especially when attempting to ambulate. Does not endorse any chest pain/plapitation,fever/chills, abdominal pain or dysuria. Review of Systems Constitutional: Reports: see HPI. Objective Last 24 Hrs of Vital Signs/I&O Vital Signs Date Time Temp Pulse Resp B/P Pulse O2 O2 Flow FiO2 Ox Delivery Rate 11/30 1633 98 Nasal 3.0L Cannula 11/30 1622 98.3 75 20 148/62 97 Nasal 3.0L Cannula 11/30 1600 97 Nasal 3.0L Cannula 11/30 0845 98.1 73 20 146/872 99 Nasal 4.0L Cannula 11/30 799 93 Nasal 3.0L Cannula 11/30 799 99 Nasal 3.0L Cannula 11/30 0000 Nasal 3.0L Cannula 11/29 2358 98.1 71 18 130/56 98 Nasal 2.0L Cannula Intake & Output 11/30 1600 11/30 0800 11/30 0000 Intake Total 600 Output Total 150 100 Balance 600 -150 -100 Intake, Oral 600 Output, Urine 150 100 Patient 74.616 kg Weight Physical Exam General Appearance: Alert, Oriented X3, Cooperative Cardiovascular: Regular Rate, Normal S1, Normal S2 Lungs: mild whezzes b/l Abdomen: Normal Bowel Sounds, Soft, No Tenderness Current Medications: Current Medications Sig/Tripp Start time Last Medication Dose Route Stop Time Status Admin Acetaminophen 650 MG Q6P PRN 11/26 1445 AC PO Albuterol Sulfate 2 PUF Q4P PRN 11/29 2145 AC INH Albuterol Sulfate 3 ML EVERY 4 HRS/AWAKE 11/28 1200 AC 11/30 INH 1926 Budesonide/ 2 PUF BID 11/26 1433 AC 11/30 Formoterol Fumarate INH 1015 Cefuroxime Sodium 250 MG 2000 11/26 1999 DC 11/29 PO 2025 Cholecalciferol 1,000 IU DAILY 11/27 1000 AC 11/30 PO 1015 Diltiazem HCl 120 MG DAILY 11/26 1433 AC 11/30 PO 1014 Docusate Sodium 100 MG .ST-MED [facility] 11/29 2159 DC PO 11/29 2200 Docusate Sodium 100 MG DAILY NEEDED PRN 11/28 0700 DC 11/29 PO 2202 Epoetin J[place] 4,000 UNIT MoWeFr 11/26 1412 AC IV Furosemide 80 MG James@1000 11/28 1000 AC 11/28 PO 0831 Furosemide 80 MG TUES THURS SAT 11/27 1000 AC 11/30 PO 1014 Guaifenesin 600 MG Q12 11/26 2200 AC 11/30 PO 1014 Lorazepam 2 MG BID PRN 11/26 1445 AC 11/30 PO 0257 Oxycodone HCl 15 MG Q4P PRN 11/26 1445 AC 11/30 PO 1925 Paricalcitol 2.5 MCG MoWeFr 11/26 1415 AC IV Prednisone 40 MG DAILY 11/28 1000 AC 11/30 PO 1014 Senna/Docusate Sodium 1 TAB BID 11/30 1413 AC 11/30 PO 1621 Sertraline HCl 100 MG DAILY 11/27 1000 AC 11/30 PO 1014 Sevelamer Carbonate 800 MG WM 11/26 1700 AC 11/30 PO 1731 Tiotropium [place] 1 PUF DAILY 11/27 1000 AC 11/30 INH 1015 Warfarin Sodium 4 MG COUMADIN 1700 ONE 11/30 1700 DC 11/30 PO 11/30 1701 1621 Warfarin Sodium 2.5 MG COUMADIN 1700 11/29 1700 DC 11/29 PO 11/29 2359 1642 Last 24 Hrs of Lab/Thien Results Last 24 Hrs of Labs/Mics: Laboratory Tests 11/30/16 0615: Anion Gap 10, Estimated GFR 11 L, BUN/Creatinine Ratio 11.0, PT 21.4 H, INR 2.05 H Assessment/Plan Assessment: Ms. Freeman is a pleasant 66-year-old female with a significant past medical history of severe COPD, pulmonary hypertension, presents with symptoms that are consistent with acute exacerbation of COPD (worsening dyspnea, increased cough, and increased sputum production). Impression and Plan: COPD exacerbation * Keep O2 saturation over 92% * TRC nebs * Continue prednisone 40 gm PO daily, * Urine strep and Legionella negative. * Pulmonary on board (appreciated) * Cefuroxime 250mg q 24 (renally adjusted dose) to continue ESRD on dialysis * Continue Tuesday schedule * Renal dialysis diet * Continue Lasix every day except dialysis days afib on warfarin * Increased warfarin to 4mg as INR was below goal * Recheck INR tomorrow and dose Coumadin accordingly with target of 3.0 * Continue diltiazem Chronic back pain/anxiety/depression * Continue oxycodone and Ativan * cont Lexapro Constipation * Patient given milk of mag at her request * Monitor #Disposition Awaiitng PT, possible discharge tomorrow. Problem List: 1. COPD with acute exacerbation Pain Ratin Pain Location: back Pain Goal: Pain 4 or less Pain Plan: apap fpr mild oxycodone for moderate Tomorrow's Labs & Rationales: INR BEP
[2016-11-30 08:45] VITALS: BP 146/872
--- NOTE | 2016-11-30 15:05 | PN- Nephrology ---
Assessment/Plan Assessment: 1. ESRD 2. COPD with exacerbation 3. Multiple comorbidities Suggestion: 1. Continue management of her COPD as you are doing 2. Hemodialysis scheduled for tomorrow 3. Mobilize Subjective Subjective: Patient remains weak and still has some shortness of breath. No other specific complaints. Objective Vital Signs and I&Os Vital Signs Date Time Temp Pulse Resp B/P Pulse O2 O2 Flow FiO2 Ox Delivery Rate 11/30 0745 98.1 73 20 146/872 99 Nasal 4.0L Cannula 11/30 799 93 Nasal 3.0L Cannula 11/30 799 99 Nasal 3.0L Cannula 11/30 0000 Nasal 3.0L Cannula 11/29 2358 98.1 71 18 130/56 98 Nasal 2.0L Cannula 11/29 1609 95 Nasal 4.0L Cannula Intake & Output 11/30 1600 11/30 0400 11/29 1600 11/29 0400 11/28 1600 11/28 0400 Intake Total 670 650 480 200 Output Total 150 100 280 200 500 300 Balance -150 -100 390 450 -20 -100 Intake, IV 0 Intake, Oral 670 650 480 200 Number 0 0 Bowel Movements Output, Urine 150 100 280 200 500 300 Patient 165 lb 165 lb 162 lb Weight Physical Exam: General: Well-developed white female on O2 in NAD Skin: No rash or jaundice HEENT: Conjunctivae pink, sclerae anicteric, mucous membranes moist Neck: Without masses or thyromegaly, no supraclavicular or cervical adenopathy Chest: Diminished air entry bilaterally with occasional wheeze bilaterally but improved from yesterday Heart: Regular rate and rhythm without S3 or rub; there is a left infraclavicular pacemaker in place Abdomen: Obese, soft and nontender without palpable masses or organomegaly Extremities: Without clubbing, cyanosis or edema; the left upper arm AVF is patent Neuro: No focal findings, no asterixis or myoclonus Current Medications: Current Medications Sig/Tripp Start time Last Medication Dose Route Stop Time Status Admin Acetaminophen 650 MG Q6P PRN 11/26 1445 AC PO Albuterol Sulfate 2 PUF Q4P PRN 11/29 2145 AC INH Albuterol Sulfate 3 ML EVERY 4 HRS/AWAKE 11/28 1200 AC 11/30 INH 1150 Budesonide/ 2 PUF BID 11/26 1433 AC 11/30 Formoterol Fumarate INH 1015 Cefuroxime Sodium 250 MG 2000 11/26 1999 AC 11/29 PO 2025 Cholecalciferol 1,000 IU DAILY 11/27 1000 AC 11/30 PO 1015 Diltiazem HCl 120 MG DAILY 11/26 1433 AC 11/30 PO 1014 Docusate Sodium 100 MG .STK-MED ONE 11/29 2159 DC PO 11/29 2200 Docusate Sodium 100 MG DAILY NEEDED PRN 11/28 0700 DC 11/29 PO 2202 Epoetin [place] 4,000 UNIT MoWeFr 11/26 1412 AC IV Furosemide 80 MG James@1000 11/28 1000 AC 11/28 PO 0831 Furosemide 80 MG TUES THURS SAT 11/27 1000 AC 11/30 PO 1014 Guaifenesin 600 MG Q12 11/26 2200 AC 11/30 PO 1014 Lorazepam 2 MG BID PRN 11/26 1445 AC 11/30 PO 0257 Oxycodone HCl 15 MG Q4P PRN 11/26 1445 AC 11/30 PO 1417 Paricalcitol 2.5 MCG MoWeFr 11/26 1415 AC IV Patient Medication 1 UNIT 1700 11/29 1700 DC 11/29 Teaching ED 11/29 1701 1642 Prednisone 40 MG DAILY 11/28 1000 AC 11/30 PO 1014 Senna/Docusate Sodium 1 TAB BID 11/30 1413 AC PO Sertraline HCl 100 MG DAILY 11/27 1000 AC 11/30 PO 1014 Sevelamer Carbonate 800 MG WM 11/26 1700 AC 11/30 PO 1313 Tiotropium [place] 1 PUF DAILY 11/27 1000 AC 11/30 INH 1015 Warfarin Sodium 4 MG COUMADIN 1700 ONE 11/30 1700 AC PO 11/30 1701 Warfarin Sodium 2.5 MG COUMADIN 1700 11/29 1700 DC 11/29 PO 11/29 2359 1642 Results Pertinent Lab Results: Laboratory Tests 11/30 11/29 0615 1215 Chemistry Sodium (137 - 145 mmol/L) 136 L 134 L Potassium (3.5 - 5.1 mmol/L) 4.7 5.0 Chloride (98 - 107 mmol/L) 97 L 96 L Carbon Dioxide (22 - 30 mmol/L) 29 24 Anion Gap (5 - 16) 10 15 BUN (7 - 17 mg/dL) 46 H 87 H Creatinine (0.5 - 1.0 mg/dL) 4.2 H 5.9 *H Estimated GFR (>60 ml/min) 11 L 7 L BUN/Creatinine Ratio (7 - 25 %) 11.0 14.7 Coagulation PT (9.4 - 12.5 SEC) 21.4 H 27.2 H INR (0.90 - 1.19) 2.05 H 2.62 H Hematology CBC w Diff NO MAN DIFF REQ WBC (4.8 - 10.8 /CUMM) 13.7 H RBC (4.20 - 5.40 /CUMM) 3.71 L Hgb (12.0 - 16.0 G/DL) 11.4 L Hct (37 - 47 %) 35.4 L MCV (81.0 - 99.0 FL) 95.2 MCH (27.0 - 31.0 PG) 30.6 RDW (11.5 - 14.5 %) 15.6 H Plt Count (130 - 400 /CUMM) 254 MPV (7.4 - 10.4 FL) 8.3 Gran % (42.2 - 75.2 %) 88.3 H Lymphocytes % (20.5 - 51.1 %) 4.0 L Monocytes % (1.7 - 9.3 %) 7.6 Eosinophils % (0 - 5 %) 0.1 Basophils % (0.0 - 2.0 %) 0 L Absolute Granulocytes (1.4 - 6.5 /CUMM) 12.1 H Absolute Lymphocytes (1.2 - 3.4 /CUMM) 0.5 L Absolute Monocytes (0.10 - 0.60 /CUMM) 1.0 H Absolute Eosinophils (0.0 - 0.7 /CUMM) 0 Absolute Basophils (0.0 - 0.2 /CUMM) 0 PUBS MCHC (33.0 - 37.0 G/DL) 32.1 L 02/05 0805 Chemistry Sodium (137 - 145 mmol/L) 136 L Potassium (3.5 - 5.1 mmol/L) 5.0 Chloride (98 - 107 mmol/L) 99 Carbon Dioxide (22 - 30 mmol/L) 26 Anion Gap (5 - 16) 12 BUN (7 - 17 mg/dL) 57 H Creatinine (0.5 - 1.0 mg/dL) 4.7 H Estimated GFR (>60 ml/min) 9 L BUN/Creatinine Ratio (7 - 25 %) 12.1 Coagulation PT (9.4 - 12.5 SEC) 34.2 H INR (0.90 - 1.19) 3.30 H Hematology CBC w Diff NO MAN DIFF REQ WBC (4.8 - 10.8 /CUMM) 7.7 RBC (4.20 - 5.40 /CUMM) 3.72 L Hgb (12.0 - 16.0 G/DL) 11.5 L Hct (37 - 47 %) 35.6 L MCV (81.0 - 99.0 FL) 95.5 MCH (27.0 - 31.0 PG) 31.0 RDW (11.5 - 14.5 %) 15.2 H Plt Count (130 - 400 /CUMM) 243 MPV (7.4 - 10.4 FL) 8.4 Gran % (42.2 - 75.2 %) 88.5 H Lymphocytes % (20.5 - 51.1 %) 5.8 L Monocytes % (1.7 - 9.3 %) 5.7 Eosinophils % (0 - 5 %) 0 Basophils % (0.0 - 2.0 %) 0 L Absolute Granulocytes (1.4 - 6.5 /CUMM) 6.8 H Absolute Lymphocytes (1.2 - 3.4 /CUMM) 0.5 L Absolute Monocytes (0.10 - 0.60 /CUMM) 0.4 Absolute Eosinophils (0.0 - 0.7 /CUMM) 0 Absolute Basophils (0.0 - 0.2 /CUMM) 0 PUBS MCHC (33.0 - 37.0 G/DL) 32.5 L
[2016-11-30 16:22] VITALS: BP 148/62
--- NOTE | 2016-11-30 18:21 | PN- Att Addend ---
Attending Addendum Attending Brief Note Patient laying in bed still not feeling good. Said her throat is still sore feels a little hoarse today. Her breathing about the same his vital signs are stable no fever and no major changes on physical will monitor today and tomorrow she will have her hemodialysis and then reassess to see if she is ready to be discharged Current Medications Sig/Tripp Start time Last Medication Dose Route Stop Time Status Admin Acetaminophen 650 MG Q6P PRN 11/26 1445 AC PO Albuterol Sulfate 2 PUF Q4P PRN 11/29 2145 AC INH Albuterol Sulfate 3 ML EVERY 4 HRS/AWAKE 11/28 1200 AC 11/30 INH 1633 Budesonide/ 2 PUF BID 11/26 1433 AC 11/30 Formoterol Fumarate INH 1015 Cefuroxime Sodium 250 MG 2000 11/26 2000 AC 11/29 PO 2025 Cholecalciferol 1,000 IU DAILY 11/27 1000 AC 11/30 PO 1015 Diltiazem HCl 120 MG DAILY 11/26 1433 AC 11/30 PO 1014 Docusate Sodium 100 MG .STK-MED ONE 11/29 2159 DC PO 11/29 2200 Docusate Sodium 100 MG DAILY NEEDED PRN 11/28 0700 DC 11/29 PO 2202 Epoetin [place] 4,000 UNIT MoWeFr 11/26 1412 AC IV Furosemide 80 MG James@1000 11/28 1000 AC 11/28 PO 0831 Furosemide 80 MG TUES THURS SAT 11/27 1000 AC 11/30 PO 1014 Guaifenesin 600 MG Q12 11/26 2200 AC 11/30 PO 1014 Lorazepam 2 MG BID PRN 11/26 1445 AC 11/30 PO 0257 Oxycodone HCl 15 MG Q4P PRN 11/26 1445 AC 11/30 PO 1417 Paricalcitol 2.5 MCG MoWeFr 11/26 1415 AC IV Prednisone 40 MG DAILY 11/28 1000 AC 11/30 PO 1014 Senna/Docusate Sodium 1 TAB BID 11/30 1413 AC 11/30 PO 1621 Sertraline HCl 100 MG DAILY 11/27 1000 AC 11/30 PO 1014 Sevelamer Carbonate 800 MG WM 11/26 1700 AC 11/30 PO 1731 Tiotropium [place] 1 PUF DAILY 11/27 1000 AC 11/30 INH 1015 Warfarin Sodium 4 MG COUMADIN 1700 ONE 11/30 1700 DC 11/30 PO 11/30 1701 1621 Warfarin Sodium 2.5 MG COUMADIN 1700 11/29 1700 DC 11/29 PO 11/29 2359 1642 Laboratory Tests 11/30 614 Chemistry Sodium (137 - 145 mmol/L) 136 L Potassium (3.5 - 5.1 mmol/L) 4.7 Chloride (98 - 107 mmol/L) 97 L Carbon Dioxide (22 - 30 mmol/L) 29 Anion Gap (5 - 16) 10 BUN (7 - 17 mg/dL) 46 H Creatinine (0.5 - 1.0 mg/dL) 4.2 H Estimated GFR (>60 ml/min) 11 L BUN/Creatinine Ratio (7 - 25 %) 11.0 Coagulation PT (9.4 - 12.5 SEC) 21.4 H INR (0.90 - 1.19) 2.05 H Laboratory Tests 11/30/16614: Anion Gap 10, Estimated GFR 11 L, BUN/Creatinine Ratio 11.0, PT 21.4 H, INR 2.05 H Vital Signs Date Time Temp Pulse Resp B/P Pulse O2 O2 Flow FiO2 Ox Delivery Rate 11/30 1633 98 Nasal 3.0L Cannula 11/30 162 98.3 75 20 148/62 97 Nasal 3.0L Cannula 11/30 844 98.1 73 20 146/872 99 Nasal 4.0L Cannula 11/30 799 93 Nasal 3.0L Cannula 11/30 799 99 Nasal 3.0L Cannula 11/30 0000 Nasal 3.0L Cannula 11/29 2357 98.1 71 18 130/56 98 Nasal 2.0L Cannula Intake & Output 11/30 1600 11/30 0811/30 0000 Intake Total 600 Output Total 150 100 Balance 600 -150 -100 Intake, Oral 600 Output, Urine 150 100 Patient 165 lb Weight
--- NOTE | 2016-11-30 19:32 | NUR ---
AMBULATED WITH PATIENT AT APPROX 1900 BASELINE 3L O2-SATS BETWEEN 88-95% UNSTEADY TOWARDS END OF WALK
[2016-11-30 23:10] VITALS: BP 132/48
[2016-12-01 07:54] VITALS: BP 160/77
--- NOTE | 2016-12-01 08:13 | PN- Pulmonary ---
Subjective HPI/Critical Care Issues: Patient was able to ambulate twice yesterday. She still feels somewhat weak shortness breath is improved. She is refusing short-term rehabilitation Objective Current Medications: Current Medications Sig/Tripp Start time Last Medication Dose Route Stop Time Status Admin Acetaminophen 650 MG Q6P PRN 11/26 1445 AC PO Albuterol Sulfate 2 PUF Q4P PRN 11/29 2145 AC INH Albuterol Sulfate 3 ML EVERY 4 HRS/AWAKE 11/28 1200 AC 12/01 INH 0809 Budesonide/ 2 PUF BID 11/26 1433 AC 11/30 Formoterol Fumarate INH 2209 Cefuroxime Sodium 250 MG 11/26 2000 DC 11/29 PO 2025 Cholecalciferol 1,000 IU DAILY 11/27 1000 AC 11/30 PO 1015 Diltiazem HCl 120 MG DAILY 11/26 1433 AC 11/30 PO 1014 Docusate Sodium 100 MG DAILY NEEDED PRN 11/28 0700 DC 11/29 PO 2202 Epoetin [place] 4,000 UNIT MoWeFr 11/26 1412 AC IV Furosemide 80 MG James@1000 11/28 1000 AC 11/28 PO 0831 Furosemide 80 MG TUES THURS SAT 11/27 1000 AC 11/30 PO 1014 Guaifenesin 600 MG Q12 11/26 2200 AC 11/30 PO 2209 Lorazepam 2 MG BID PRN 11/26 1445 AC 11/30 PO 2347 Oxycodone HCl 15 MG Q4P PRN 11/26 1445 AC 12/01 PO 0503 Paricalcitol 2.5 MCG MoWeFr 11/26 1415 AC IV Prednisone 40 MG DAILY 11/28 1000 AC 11/30 PO 1014 Senna/Docusate Sodium 1 TAB BID 11/30 1413 AC 11/30 PO 2208 Sertraline HCl 100 MG DAILY 11/27 1000 AC 11/30 PO 1014 Sevelamer Carbonate 800 MG WM 11/26 1700 AC 12/01 PO 0727 Tiotropium [place] 1 PUF DAILY 11/27 1000 AC 11/30 INH 1015 Warfarin Sodium 4 MG COUMADIN 1700 ONE 11/30 1700 DC 11/30 PO 11/30 1701 1621 Vital Signs & I&O Last 24 Hrs of Vitals and I&O: Vital Signs Date Time Temp Pulse Resp B/P Pulse O2 O2 Flow FiO2 Ox Delivery Rate 12/01 0711 98 Nasal 3.0L Cannula 12/01 0754 97.6 76 20 160/77 99 Nasal 3.0L Cannula 12/01 0546 99 Nasal 3.0L Cannula 12/01 0000 Nasal 3.0L Cannula 11/30 2310 97.7 86 20 132/48 98 11/30 1633 98 Nasal 3.0L Cannula 11/30 1622 98.3 75 20 148/62 97 Nasal 3.0L Cannula 11/30 1600 97 Nasal 3.0L Cannula 11/30 0845 98.1 73 20 146/872 99 Nasal 4.0L Cannula Intake & Output 12/01 1600 12/01 0800 12/01 0000 Intake Total 120 500 Output Total 400 200 Balance -280 300 Intake, Oral 120 500 Number 2 Bowel Movements Output, Urine 400 200 Patient 167 lb Weight Oxygen saturation 3 L 98% exam for chest shows diminished breath sounds are no wheezes cardiac exam shows a regular S1 and S2 without murmurs Impression/Plan Impression/Plan Impression/Plan: C6-year-old woman with severe oxygen-dependent COPD end-stage renal disease on dialysis. Respiratory status is improved Recommendations: Continue nebulized bronchodilators begin slow prednisone taper. Taper FiO2 with improved saturations. Patient appears stable from a pulmonary standpoint
--- NOTE | 2016-12-01 10:08 | Patient Discharge Instructions ---
Discharge Instructions General Discharge Information Special Instructions: PLEASE FOLLOW UP WITH YOUR PRIMARY CARE IN 1 WEEK PLEASE FOLLOW UP WITH DR ALDRICH IN 1-2 WEEKS PLEASE SEEK IMMEDIATE ATTENTION IF YOUR BREATHING WORSENS Acute Coronary Syndrome Inclusion Criteria At DC or during hospital stay patient has or had the following: ACS DIAGNOSIS No Discharge Core Measures Meds if any: Prescribed or Continued at Discharge Meds if any: NOT Prescribed or Continued at Discharge Congestive Heart Failure Inclusion Criteria At DC or during hospital stay patient has or had the following: CHF DIAGNOSIS No Discharge Core Measures Meds if any: Prescribed or Continued at Discharge Meds if any: NOT Prescribed or Continued at Discharge Cerebrovascular accident Inclusion Criteria At DC or during hospital stay patient has or had the following: CVA/TIA Diagnosis No Discharge Core Measures Meds if any: Prescribed or Continued at Discharge Meds if any: NOT Prescribed or Continued at Discharge Venous thromboembolism Inclusion Criteria VTE Diagnosis No VTE Type NONE VTE Confirmed by (Test) NONE Discharge Core Measures - Per Current guidelines, there needs to be overlap - treatment for the first 5 days of Warfarin therapy. - If discharged on Warfarin prior to 5 days of - overlap therapy, the patient will need to be - assessed for post discharge needs including - *Post discharge parental anticoagulation - *Warfarin and/or parental anticoagulation education - *Follow up date to check INR post discharge At least 5 days overlap therapy as Inpatient No Meds if any: Prescribed or Continued at Discharge Note: Overlap Therapy is Warfarin and Anticoagulant Meds if any: NOT Prescribed or Continued at Discharge
[2016-12-01] MEDS ORDERED: PREDNISONE10 M2 PO (10:16)
--- NOTE | 2016-12-01 10:30 | NUR ---
NOTIFIED PATIENT OF DISCHARGE ORDER, PATIENT TO GO TO OUTPATIENT DIALYSIS TODAY, SCHEDULED TIME FOR 3PM. CASE MANAGEMENT STACEY RN TO SET UP TRANSPORT TO DIALYSIS, AND SON WILL PICK PATIENT UP AFTER DIALYSIS.
[2016-12-01 14:10] LABS: PT 24.6 SEC (9.4-12.5)
--- NOTE | 2016-12-01 14:58 | PN- Att Addend ---
Attending Addendum Attending Brief Note No new issues, vital signs are stable she is a febrile not breathing is at baseline using her oxygen, will arrange for outpatient dialysis later on today and transportation then discharge, to follow with all her specialists and myself and see C MR. Current Medications Sig/Tripp Start time Last Medication Dose Route Stop Time Status Admin Acetaminophen 650 MG Q6P PRN 02 1445 DCD 02 PO 0824 Albuterol Sulfate 2 PUF Q4P PRN 11/29 2145 DCD INH Albuterol Sulfate 3 ML EVERY 4 HRS/AWAKE 11/28 1200 DCD 02 INH 1155 Budesonide/ 2 PUF BID 11/26 1433 DCD 02 Formoterol Fumarate INH 1019 Cefuroxime Sodium 250 MG 2000 11/26 2000 DC 11/29 PO 2025 Cholecalciferol 1,000 IU DAILY 11/27 1000 DCD 02 PO 1015 Diltiazem HCl 120 MG DAILY 11/26 1433 DCD 11/30 PO 1014 Epoetin Jerson 4,000 UNIT MoWeFr 11/26 1412 DCD IV Furosemide 80 MG James@1000 11/28 1000 DCD 02 PO 0831 Furosemide 80 MG TUES THURS SAT 11/27 1000 DCD 11/30 PO 1014 Guaifenesin 600 MG Q12 11/26 2200 DCD 12/01 PO 1019 Lorazepam 2 MG BID PRN 11/26 1445 DCD 02 PO 2347 Oxycodone HCl 15 MG Q4P PRN 11/26 1445 DCD 12/01 PO 1019 Paricalcitol 2.5 MCG MoWeFr 11/26 1415 DCD IV Patient Medication 1 ED .STK-MED ONE 12/01 1347 DC Teaching ED 12/01 1348 Prednisone 40 MG DAILY 11/28 1000 DCD 11/30 PO 1014 Senna/Docusate Sodium 1 TAB BID 11/30 1413 DCD 11/30 PO 2208 Sertraline HCl 100 MG DAILY 11/27 1000 DCD 12/01 PO 1019 Sevelamer Carbonate 800 MG WM 11/26 1700 DCD 12/01 PO 1154 Tiotropium [place] 1 PUF DAILY 11/27 1000 DCD 02 INH 1020 Warfarin Sodium 4 MG COUMADIN 1700 ONE 11/30 1700 DC 02 PO 11/30 1701 1621 Laboratory Tests 12/01/16 1350: PT 24.6 H, INR 2.36 H Vital Signs Date Time Temp Pulse Resp B/P Pulse O2 O2 Flow FiO2 Ox Delivery Rate 12/01 810 98 Nasal 3.0L Cannula 12/01 799 Nasal 3.0L Cannula 12/01 075 97.6 76 20 160/77 99 Nasal 3.0L Cannula Intake & Output 12/01 1600 Intake Total 560 Output Total 300 Balance 260 Intake, Oral 560 Output, Urine 300 Patient 167 lb Weight
--- NOTE | 2016-12-01 15:01 | PN- Housestaff ---
Subjective Follow-up For: AECOPD Subjective: Patient is seen and examined bedside. Patient reports that her breathing is much better, sshe denies any chest pain, palpitation, increasing shortness of breath, fever, chills, abdominal pain or dysuria, no acute overnight event reported by nursing staff. Patient was able to lumbar length with clinical nursing instructor without any desaturation noted. Review of Systems Constitutional: Denies: see HPI, diaphoresis, fever, malaise. Objective Last 24 Hrs of Vital Signs/I&O Vital Signs Date Time Temp Pulse Resp B/P Pulse O2 O2 Flow FiO2 Ox Delivery Rate 12/01 810 98 Nasal 3.0L Cannula 12/01 799 Nasal 3.0L Cannula 12/01 0754 97.6 76 20 160/77 99 Nasal 3.0L Cannula 12/01 0546 99 Nasal 3.0L Cannula 12/01 0000 Nasal 3.0L Cannula 11/30 2310 97.7 86 20 132/48 98 11/30 1633 98 Nasal 3.0L Cannula 11/30 1622 98.3 75 20 148/62 97 Nasal 3.0L Cannula 11/30 1600 97 Nasal 3.0L Cannula Intake & Output 12/01 1600 12/01 0800 12/01 0000 Intake Total 560 120 500 Output Total 300 400 200 Balance 260 -280 300 Intake, Oral 560 120 500 Number 2 Bowel Movements Output, Urine 300 400 200 Patient 75.892 kg 75.892 kg Weight Physical Exam General Appearance: Alert, Oriented X3, Cooperative Skin: No Significant Lesion HEENT: PERRLA, EOMI, Mucous Membr. moist/pink Neck: Supple Lymphatic: Cervical nl Cardiovascular: Regular Rate, Normal S1, Normal S2 Lungs: very faint wheezing bilateral lower lung field. Significantly improved compared to previous days Abdomen: Normal Bowel Sounds, Soft, No Tenderness Neurological: Normal Gait, Normal Speech, Strength at 5/5 X4 Ext Extremities: No Clubbing, No Cyanosis Assessment/Plan Assessment: Ms. Freeman is a pleasant 66-year-old female with a significant past medical history of severe COPD, pulmonary hypertension, presents with symptoms that are consistent with acute exacerbation of COPD (worsening dyspnea, increased cough, and increased sputum production). Impression and Plan: COPD exacerbation Improvement resolving. Will discharge home with a prednisone taper Patient will continue with home COPD meds ESRD on dialysis * Continue Tuesday schedule * Renal dialysis diet * Continue Lasix every day except dialysis days #Disposition Discharge for today. Problem List: 1. COPD with acute exacerbation Pain Ratin Pain Location: Back Pain Goal: Pain 4 or less Pain Plan: Continue heparin for mild pain Continue oxycodone for moderate Tomorrow's Labs & Rationales: None- pending discharge
--- NOTE | 2016-12-01 15:01 | Discharge Summary ---
Hospital Course Allergies: Coded Allergies: NO KNOWN ALLERGIES (11/26/16) Discharge Instructions Medications at Discharge Discharge Medications: Continue taking these medications: Albuterol Sulfate (Proair Hfa) 0.09 MG/Actuation LUNA 2 PUFF Inhale through mouth EVERY 4 HOURS NEEDED as needed for SHORTNESS OF BREATH Qty = 85 Comments: PER PT Budesonide/Formoterol Fumara (Symbicort 160-4.5 Mcg Inhaler) 160 MCG/4.5 MCG PUF 2 Puff Inhale through mouth TWICE DAILY Qty = 102 Comments: PER PT SERTRALINE HCL (Sertraline Hydrochloride) 100 MG TABLET 1 Tablet ORAL DAILY Qty = 30 Comments: PER PT Sevelamer Carbonate (Renvela) 800 MG TABLET 1 Tablet ORAL TID WM Instructions: TAKE WITH MEALS Comments: PER PT Tiotropium [place] (Spiriva) 18 MCG CAP.W.DEV 1 Capsule Inhale through mouth DAILY Qty = 30 Comments: PER PT OXYCODONE HCL (Oxycodone HCl) 15 MG TABLET 1 Tablet ORAL Q4H Qty = 60 Comments: PER PT Cholecalciferol (Vitamin D3) 1,000 UNIT TABLET 1,000 International Unit ORAL DAILY Days = 30 Comments: PER PT Diltiazem Cd (Diltiazem ER) 120 MG CAP.ER.DEG 120 Milligram ORAL DAILY Days = 30 Comments: PER PT Amlodipine Besylate (Amlodipine) 10 MG TAB 1 Tablet ORAL AT BEDTIME Qty = 30 Comments: PER PT Epoetin Jerson (Procrit) 20,000 U/ML ML 7,000 Units INTRAVEN TUESDAY, TUESDAY AND TUESDAY as needed for WITH DIALYSIS Days = 30 Comments: PER PT Furosemide (Lasix) 80 MG TAB 1 Tablet ORAL As Directed Comments: PER PT TAKES ALL DAYS EXCEPT FOR Tue AND TUE DUE TO DIALYSIS Warfarin Sodium (Coumadin) 5 MG TABLET 0.5 Tablet ORAL DAILY Days = 29 Comments: Last Taken: 04/04/16 Time: 5:30 PM Lorazepam (Ativan) 2 MG TABLET 1 Tablet ORAL Every night as needed for ANXIETY Comments: PER PT Guaifenesin (Guaifenesin ER) 600 MG TAB.ER.12H 600 Milligram ORAL EVERY 12 HOURS as needed for cough Days = 7 Start taking the following new medications: Prednisone (Prednisone) 10 MG TABLET 1 Tablet ORAL DIRECTED Qty = 12 No Refills Instructions: TAKE 3 TABLETS FOR 2 DAYS (12/01-12/02) TAKE 2 TABLETS FOR 2 DAYS (12/03-12/04) TAKE 1 TABLET FOR 2 DAYS (12/05-12-06)
--- NOTE | 2016-12-02 14:25 | Discharge Summary ---
Visit Information Visit Dates Admission Date: 11/26/16 Discharge Date: 12/01/16 Hospital Course Course Attending Physician: YAIR LEMON MD Primary Care Physician: YAIR LEMON MD Consulting Request: Consulting Specialty: Nephrology (and pulmonary) Consulting Physician: Angel Escalera MD, and Dr. Malone Reason for Consult: exacerbation of COPD and chronic renal failure Hospital Course: 66-year-old white female with several medical conditions again became very short of breath with any tiny exertion patient uses oxygen at home but still was very sick and required the patient to come to the emergency room, that morning she could not even make it to dialysis regimen the lab in the hospital and was seen by pulmonary and nephrology treatments were started and she slowly improved but took longer than usual continued having her hemodialysis treatment times a week while in the hospital. Patient did not want to go to rehabilitation and finally was discharged on December 01 home Complications: None Allergies: Coded Allergies: NO KNOWN ALLERGIES (11/26/16) Significant Procedures: SERVICE DATE: 11/26/16- EXAM TYPE: CAT - CT CHEST WO IV CONTRAST EXAMINATION: CT CHEST WITHOUT CONTRAST CLINICAL INFORMATION: Progressive dyspnea COMPARISON: Multiple priors, most recently chest radiograph from today. TECHNIQUE: Multidetector volumetric CT imaging of the chest was done. Axial MIP volume rendering provided. Sagittal and coronal reformatted images were obtained. DLP: 368 mGy-cm. FINDINGS: [employer]: Left chest wall pacer. Median sternotomy wires. LUNGS: The central airways are patent. There is severe centrilobular emphysema. Mild bronchial wall thickening of the lower lobes. Minimal bibasilar atelectasis. No pneumothorax. MEDIASTINUM: The heart is enlarged. Coronary artery calcifications. No pericardial effusion. Prominent mediastinal lymph nodes are seen. There is a precarinal node measuring 1.8 x 1.6 cm on image 26/70. Prominent nodes are seen in the AP window. PLEURA: There is no pleural effusion. Prominent calcific thickening along the right major fissure.. AXILLA: No lymphadenopathy. UPPER ABDOMEN: Calcifications associated with the spleen. OSSEOUS STRUCTURES: Mild degenerative changes of the spine. Status post median sternotomy. IMPRESSION: Severe emphysema. Lower lobe bronchial wall thickening noted could be chronic or associated with an acute small airways process. Prominent mediastinal lymph node is similar to prior imaging. SERVICE DATE: 11/26/16-914 EXAM TYPE: RAD - XRY-CHEST XRAY, PA AND LATERAL EXAMINATION: XR CHEST CLINICAL INFORMATION: Difficulty breathing. Productive cough. COMPARISON: Chest radiograph 06/17/2016. TECHNIQUE: 2 views the chest were obtained. 3 images total. FINDINGS: Similar to the findings demonstrated on the most recent prior examination from 06/17/2016 there are ill-defined opacities involving both lungs primarily on the right side with a perihilar distribution. A few nodular opacities are visualized for instance within the peripheral aspect of the right midlung and the right lower lobe. The cardiac silhouette remains enlarged but unchanged from prior imaging. Upper mediastinal contours are normal. There is a stable position of a 2-lead pacer. The position of the generator in the left chest is unchanged. Trace effusions within the posterior costophrenic recesses on the lateral projection. There is diffuse demineralization of bone. No acute osseous finding. IMPRESSION: There are ill-defined opacities involving both lungs primarily on the right side. A few nodular opacities are visualized within the periphery of the right lung and within the right lower lobe. Findings are largely unchanged when compared to the prior chest radiograph from 06/17/2016. These findings may represent a manifestation of pneumonia in the appropriate clinical setting. A dedicated CT scan of the chest may provide better anatomic characterization of these findings. Pertinent Lab Results: Laboratory Tests 11/26 0942 Chemistry Sodium (137 - 145 mmol/L) 141 Potassium (3.5 - 5.1 mmol/L) 5.1 Chloride (98 - 107 mmol/L) 104 Carbon Dioxide (22 - 30 mmol/L) 25 Anion Gap (5 - 16) 12 BUN (7 - 17 mg/dL) 29 H Creatinine (0.5 - 1.0 mg/dL) 4.0 H Estimated GFR (>60 ml/min) 11 L BUN/Creatinine Ratio (7 - 25 %) 7.3 Glucose (65 - 99 mg/dL) 98 Calcium (8.4 - 10.2 mg/dL) 9.4 Total Bilirubin (0.2 - 1.3 mg/dL) 0.6 AST (14 - 36 U/L) 19 ALT (9 - 52 U/L) 35 Alkaline Phosphatase (<127 U/L) 113 Troponin I (< 0.11 ng/ml) 0.02 Total Protein (6.3 - 8.2 g/dL) 6.8 Albumin (3.5 - 5.0 g/dL) 4.3 Globulin (1.9 - 4.2 gm/dL) 2.5 Albumin/Globulin Ratio (1.1 - 2.2 %) 1.7 Hematology CBC w Diff NO MAN DIFF REQ WBC (4.8 - 10.8 /CUMM) 6.4 RBC (4.20 - 5.40 /CUMM) 3.82 L Hgb (12.0 - 16.0 G/DL) 11.8 L Hct (37 - 47 %) 36.8 L MCV (81.0 - 99.0 FL) 96.2 MCH (27.0 - 31.0 PG) 30.9 RDW (11.5 - 14.5 %) 15.7 H Plt Count (130 - 400 /CUMM) 223 MPV (7.4 - 10.4 FL) 8.1 Gran % (42.2 - 75.2 %) 81.1 H Lymphocytes % (20.5 - 51.1 %) 9.0 L Monocytes % (1.7 - 9.3 %) 8.4 Eosinophils % (0 - 5 %) 1.3 Basophils % (0.0 - 2.0 %) 0.2 Absolute Granulocytes (1.4 - 6.5 /CUMM) 5.2 Absolute Lymphocytes (1.2 - 3.4 /CUMM) 0.6 L Absolute Monocytes (0.10 - 0.60 /CUMM) 0.5 Absolute Eosinophils (0.0 - 0.7 /CUMM) 0.1 Absolute Basophils (0.0 - 0.2 /CUMM) 0 PUBS MCHC (33.0 - 37.0 G/DL) 32.1 L Laboratory Tests 11/28/16 0805: Anion Gap 12, Estimated GFR 9 L, BUN/Creatinine Ratio 12.1, PT 34.2 H, INR 3.30 H, CBC w Diff NO MAN DIFF REQ, RBC 3.72 L, MCV 95.5, MCH 31.0, RDW 15.2 H, MPV 8.4, Gran % 88.5 H, Lymphocytes % 5.8 L, Monocytes % 5.7, Eosinophils % 0, Basophils % 0 L, Absolute Granulocytes 6.8 H, Absolute Lymphocytes 0.5 L, Absolute Monocytes 0.4, Absolute Eosinophils 0, Absolute Basophils 0, PUBS MCHC 32.5 L Microbiology 11/27 1134 URINE ROUT: Legionella Antigen - COMP 11/27 113 URINE ROUT: Streptococcus pneumoniae Antigen (M - COMP 11/30/16 0615: Anion Gap 10, Estimated GFR 11 L, BUN/Creatinine Ratio 11.0, PT 21.4 H, INR 2.05 H Disposition Summary Disposition Principal Diagnosis: Exacerbation of COPD, acute on chronic respiratory failure Chronic renal failure on hemodialysis Additional Diagnosis: Hypertension Status post mitral valve replacement Atrial fibrillation Congestive heart failure Anemia Cardiac pacemaker Pulmonary hypertension Chronic back pain Discharge Disposition: home health services Discharge Instructions General Discharge Information Code Status: Full Code Patient's Diet: Renal and healthy heart Patient's Activity: As tolerated Follow-Up Instructions/Appts: Follow-up with Dr. Lemon pulmonary and nephrology Medications at Discharge Discharge Medications: Continue taking these medications: Albuterol Sulfate (Proair Hfa) 0.09 MG/Actuation LUNA 2 PUFF Inhale through mouth EVERY 4 HOURS NEEDED as needed for SHORTNESS OF BREATH Qty = 85 Comments: PER PT Budesonide/Formoterol Fumara (Symbicort 160-4.5 Mcg Inhaler) 160 MCG/4.5 MCG PUF 2 Puff Inhale through mouth TWICE DAILY Qty = 102 Comments: PER PT SERTRALINE HCL (Sertraline Hydrochloride) 100 MG TABLET 1 Tablet ORAL DAILY Qty = 30 Comments: PER PT Sevelamer Carbonate (Renvela) 800 MG TABLET 1 Tablet ORAL TID WM Instructions: TAKE WITH MEALS Comments: PER PT Tiotropium [place] (Spiriva) 18 MCG CAP.W.DEV 1 Capsule Inhale through mouth DAILY Qty = 30 Comments: PER PT OXYCODONE HCL (Oxycodone HCl) 15 MG TABLET 1 Tablet ORAL Q4H Qty = 60 Comments: PER PT Cholecalciferol (Vitamin D3) 1,000 UNIT TABLET 1,000 International Unit ORAL DAILY Days = 30 Comments: PER PT Diltiazem Cd (Diltiazem ER) 120 MG CAP.ER.DEG 120 Milligram ORAL DAILY Days = 30 Comments: PER PT Amlodipine Besylate (Amlodipine) 10 MG TAB 1 Tablet ORAL AT BEDTIME Qty = 30 Comments: PER PT Epoetin [place] (Procrit) 20,000 U/ML ML 7,000 Units INTRAVEN TUESDAY, TUESDAY AND TUESDAY as needed for WITH DIALYSIS Days = 30 Comments: PER PT Furosemide (Lasix) 80 MG TAB 1 Tablet ORAL As Directed Comments: PER PT TAKES ALL DAYS EXCEPT FOR Tue AND TUE DUE TO DIALYSIS Warfarin Sodium (Coumadin) 5 MG TABLET 0.5 Tablet ORAL DAILY Days = 29 Comments: Last Taken: 04/04/16 Time: 5:30 PM Lorazepam (Ativan) 2 MG TABLET 1 Tablet ORAL Every night as needed for ANXIETY Comments: PER PT Guaifenesin (Guaifenesin ER) 600 MG TAB.ER.12H 600 Milligram ORAL EVERY 12 HOURS as needed for cough Days = 7 Start taking the following new medications: Prednisone (Prednisone) 10 MG TABLET 1 Tablet ORAL DIRECTED Qty = 12 No Refills Instructions: TAKE 3 TABLETS FOR 2 DAYS (12/01-12/02) TAKE 2 TABLETS FOR 2 DAYS (12/03-12/04) TAKE 1 TABLET FOR 2 DAYS (12/05-12-06) Copies To: ELINOR LANE,MARCIA Carlisle; LEILANI LANE,ANGEL Mendez; YAIR LEMON MD Attending MD Review Statement Documenting Attending: YAIR LEMON MD
== END 2016-12-01 14:10 | disposition home health service (06) | DRG 190 ==
LOC: ENRESERVTM → ENRESERVDT → ERH 08:43 → 2NB 12:15 → ENPENDDIS 12:15 → ERH 12:15 → ERHI 12:15 → 2NB 17:00
PROVIDERS: Emergency Medicine; Internal Medicine; Student in an Organized Health Care Education/Training Program; ADMIT Internal Medicine
PROC: 5A1D60Z (ICD-10-PCS; principal; 2016-11-26)
DX: J44.1 Chronic obstructive pulmonary disease with (acute) exacerbation (principal); N18.6 End stage renal disease; J96.21 Acute and chronic respiratory failure with hypoxia; I13.2 Hypertensive heart and chronic kidney disease with heart failure and with stage 5 chronic kidney disease, or end stage renal disease; I27.2 Other secondary pulmonary hypertension; Z99.81 Dependence on supplemental oxygen; I50.32 Chronic diastolic (congestive) heart failure; Z87.891 Personal history of nicotine dependence; Z95.4 Presence of other heart-valve replacement; D64.89 Other specified anemias; G89.29 Other chronic pain; M54.9 Dorsalgia, unspecified; F32.9 Major depressive disorder, single episode, unspecified; F41.9 Anxiety disorder, unspecified; Z99.2 Dependence on renal dialysis; I48.0 Paroxysmal atrial fibrillation; Z79.01 Long term (current) use of anticoagulants; J45.909 Unspecified asthma, uncomplicated; Z86.73 Personal history of transient ischemic attack (TIA), and cerebral infarction without residual deficits
CPT/HCPCS: 2NBP; 36415; 82436; 87070; 87449; 87450; 87804; 87804-59; 93005; 93010; J0885; J2501; J2920; J3490

== ENCOUNTER 2016-12-17 09:01 | Inpatient (IN) | payer OTHER, MEDICARE ==
[~2016-12-17] VITALS: Ht 175.3 cm; Wt 81.3 kg
--- NOTE | 2016-12-17 09:05 | NUR ---
PT PRESENTS TO ER S/P FALL AT HOME. PT STATES SHE WAS WALKING AT HOME AND TRIPPPED OVER HER OXYGEN TUBING AND FELL ONTO HER LEFT LEG. PT DENIES HEAD STRIKE OR LOC. PT STATES PAIN IS WORSE WITH MOVEMENT OR BEARING WEIGHT.
--- NOTE | 2016-12-17 09:06 | NUR ---
LUKASZ DEL TORO AT BEDSIDE FOR EVAL ON ARRIVAL TO ER.
--- NOTE | 2016-12-17 09:10 | ED MVC/FALL/TRAUMA COMPLAINT ---
History of Present Illness General Chief Complaint: Fall Stated Complaint: FALL,LT LEG PAIN Source: patient, old records, friend Exam Limitations: no limitations Vital Signs & Intake/Output Vital Signs & Intake/Output Vital Signs Date Time Temp Pulse Resp B/P Pulse O2 O2 Flow FiO2 Ox Delivery Rate 12/17 1048 98.3 71 20 160/73 99 Nasal 3.0L Cannula 12/17 0945 95 Nasal 3.0L Cannula 12/17 0906 97.2 77 20 143/74 100 Nasal 4.0L Cannula Allergies Coded Allergies: NO KNOWN ALLERGIES (11/26/16) Reconcile Medications Albuterol Sulfate (Proair Hfa) 0.09 MG/Actuation LUNA 2 PUFF INH Q4 HRS NEEDED PRN SHORTNESS OF BREATH (Reported) Amlodipine Besylate (Amlodipine) 10 MG TAB 1 TAB PO AT BEDTIME high blood pressure Budesonide/Formoterol Fumara (Symbicort 160-4.5 Mcg Inhaler) 160 MCG/4.5 MCG PUF 2 PUF INH BID COPD (Reported) Cholecalciferol (Vitamin D3) 1,000 UNIT TABLET 1,000 IU PO DAILY VITAMIN D SUPPLEMENT Diltiazem Cd (Diltiazem ER) 120 MG CAP.ER.DEG 120 MG PO DAILY A.Fib Epoetin Jerson (Procrit) 20,000 U/ML ML 7,000 U IV Tuesday PRN WITH DIALYSIS Furosemide (Lasix) 80 MG TAB 1 TAB PO AD DIURETIC (Reported) Furosemide 40 MG TABLET 1 TAB PO BID FLUID IN LEGS (Reported) Lorazepam (Ativan) 2 MG TABLET 1 TAB PO QPM PRN ANXIETY (Reported) OXYCODONE HCL (Oxycodone HCl) 15 MG TABLET 1 TAB PO Q4H PAIN (Reported) Prednisone 10 MG TABLET 1 TAB PO DIRECTED COPD TAKE 3 TABLETS FOR 2 DAYS (12/01-12/02) TAKE 2 TABLETS FOR 2 DAYS (12/03-12/04) TAKE 1 TABLET FOR 2 DAYS (12/05-12-06) SERTRALINE HCL (Sertraline Hydrochloride) 100 MG TABLET 1 TAB PO DAILY Depression (Reported) Sevelamer Carbonate (Renvela) 800 MG TABLET 1 TAB PO TID WM PHOSPHORUS BINDER (Reported) TAKE WITH MEALS Tiotropium [place] (Spiriva) 18 MCG CAP.W.DEV 1 CAP INH DAILY COPD (Reported) Warfarin Sodium (Coumadin) 5 MG TABLET 0.5 TAB PO DAILY BLOOD THINNER ( Reported) Triage Note: PT PRESENTS TO ER S/P FALL AT HOME. PT STATES SHE WAS WALKING AT HOME AND TRIPPPED OVER HER OXYGEN TUBING AND FELL ONTO HER LEFT LEG. PT DENIES HEAD STRIKE OR LOC. PT STATES PAIN IS WORSE WITH MOVEMENT OR BEARING WEIGHT. Triage Nurses Notes Reviewed? yes Onset: Abrupt Duration: minute(s):, constant Timing: single episode today Severity: moderate, severe Injuries/Fall Location: lower extremity Method of Injury: fall Loss of Consciousness: no loss of consciousness No Modifying Factors: none HPI: 66-year-old female comes in by ambulance for evaluation of left hip pain and leg pain after falling at home. Patient reports that she tripped over the tubing for her oxygen tank and came down on her left side. Denies hitting her head. Denies any neck pain or rib pain. Patient is alert and oriented. Moderate to severe pain to left hip. Continuous. Nonradiating. Denies any other associated symptoms at this time. Patient is on Coumadin. (ALVERTO RAMIREZ) Past History Travel History Traveled to [place] past 21 day No Medical History Any Pertinent Medical History? see below for history Neurological: TIA EENT: NONE Cardiovascular: AFIB (s/p ablation), CHF, hypertension, mitral stenosis, PACER ( R CHEST) MITRAL VALVE REPLACEMENT Respiratory: COPD, emphysema, pulmonary hypertension, 02 DEP @ 3L VIA N/C Gastrointestinal: 08/06 EGD- suggestion of gastroparesis 08/06- colonoscopy- fair prep, but otherwise normal Hepatic: NONE Renal: chronic kidney disease, FISTULA L ARM Musculoskeletal: chronic back pain Psychiatric: anxiety, depression Endocrine: NONE Blood Disorders: anemia Cancer(s): NONE RN ANESTHESIOLOGY/Reproductive: NONE History of MRSA: No History of VRE: No History of CDIFF: No Surgical History Surgical History: appendectomy, Av fistual on left side [facility] Ch[facility]'s valve replacement February 1996 at [facility] evacuation of left arm hematoma pacemaker MVR Psychosocial History Who do you live with Spouse Services at Home Nursing, Oxygen, Physical Therapy What is your primary language Estonian Tobacco Use: Quit >30 days ago Family History Family History, If Any: BROTHER FH: diabetes mellitus Hx Contributory? No (ALVERTO RAMIREZ) Review of Systems Review of Systems Constitutional: Reports: no symptoms. Eyes: Reports: no symptoms. Ears, Nose, Throat, Mouth: Reports: no symptoms. Respiratory: Reports: no symptoms. Cardiovascular: Reports: no symptoms. Gastrointestinal/Abdominal: Reports: no symptoms. Genitourinary: Reports: no symptoms. Musculoskeletal: Reports: see HPI. Skin: Reports: no symptoms. Neurological/Psychological: Reports: no symptoms. All Other Systems: Reviewed and Negative (ALVERTO RAMIREZ) Physical Exam Physical Exam General Appearance: well developed/nourished, alert, mild distress Head: atraumatic Eyes: Bilateral: normal appearance. Ears, Nose, Throat, Mouth: hearing grossly normal, moist mucous membrane Neck: normal inspection Respiratory: no respiratory distress Cardiovascular: irregularly irregular Extremities: pain with internal/external rotation of left hip, tenderness with palpation, no tenderness in the right ankle right tib-fib, no tenderness in left knee Neurologic/Psych: awake, alert, oriented x 3 Skin: intact, normal color Core Measures ACS in differential dx? No Severe Sepsis Present: No Septic Shock Present: No (ALVERTO RAMIREZ) Progress Differential Diagnosis: abd injury, C/T/L spine injury, ext injury, ICH, pelvis injury, pnemothorax, spinal cord injury Plan of Care: Orders Procedure Date/time Status CBC WITHOUT DIFFERENTIAL 12/18 0600 Active BASIC ELECTROLYTES PLUS BUN&CR 12/18 0600 Active Renal Dialysis Diet 12/17 L Active Code Status 12/17 1204 Active Pathway - chart 12/17 1140 Active TRC EVALUATION (GEN) 12/17 1137 Active Pathway - chart 12/17 1137 Active House Staff 12/17 1137 Active URINALYSIS 12/17 1111 Active Admit to inpatient 12/17 1044 Active Patient Data 12/17 1044 Active Weight 12/17 0911 Active PARTIAL THROMBOPLASTIN TIME 12/17 0909 Complete PROTHROMBIN TIME 12/17 0909 Complete COMPREHENSIVE METABOLIC PANEL 12/17 0909 Complete CBC WITHOUT DIFFERENTIAL 12/17 0909 Complete EKG 12/17 0909 Active TYPE & SCREEN (NOT X-MATCH) 12/17 0909 Active Intake & Output 12/17 0906 Active Current Medications Sig/Tripp Start time Last Medication Dose Stop Time Status Admin Multivitamins 1 TAB DAILY 12/18 1000 AC (Nephrocaps) Sevelamer HCl 2,400 MG TIDAC 12/17 1200 UNVr (Renagel) Acetaminophen 650 MG Q6P PRN 12/17 1145 AC (Tylenol) Acetaminophen 1,000 MG Q6P PRN 12/17 1145 AC (Ofirmev) Morphine Sulfate 2 MG Q4P PRN 12/17 1145 AC (Morphine) Laboratory Tests 12/17/16 0930: Anion Gap 15, Estimated GFR 9 L, BUN/Creatinine Ratio 15.3, Glucose 114 H, Calcium 8.5, Total Bilirubin 0.6, AST 10 L, ALT 26, Alkaline Phosphatase 84, Total Protein 6.2 L, Albumin 3.8, Globulin 2.4, Albumin/Globulin Ratio 1.6, PT 44.4 *H, INR 4.29 *H, APTT 33, CBC w Diff MAN DIFF ORDERED, RBC 3.76 L, MCV 94.9, MCH 30.4, RDW 15.0 H, MPV 8.3, Gran % 94.7 H, Lymphocytes % 3.3 L, Monocytes % 2.0, Eosinophils % 0, Basophils % 0 L, Absolute Granulocytes 12.7 H, Absolute Lymphocytes 0.4 L, Absolute Monocytes 0.3, Absolute Eosinophils 0, Absolute Basophils 0, Platelet Estimate VERIFIED BY SMEAR, Anisocytosis 1+, PUBS MCHC 32.0 L Diagnostic Imaging: Viewed by Me: Radiology Read. Discussed w/RAD: Radiology Read. Radiology Impression: XAM TYPE: RAD - XRY-HIP 2-3 VIEWS, LEFT; XRY-KNEE COMPLETE LEFT EXAMINATION: XR HIP, LEFT XR KNEE, LEFT CLINICAL INFORMATION: Fall, trauma, pain COMPARISON: Left knee 10/28/2013 TECHNIQUE: Two views of the left hip. 4 views of the left knee. FINDINGS: Left hip: Alignment across the hip appears anatomic, with mild degenerative change. There is a mildly displaced intertrochanteric fracture of the left femur. Visualized portion of the pelvis appears intact. Left knee: Osseous alignment is anatomic. There may be mild tricompartmental joint space narrowing. No significant osteophyte formation. No acute fracture is seen. No significant effusion. There is mild patellar spurring at the insertion of the quadriceps tendon. IMPRESSION: 1. Left hip: Mildly displaced intertrochanteric fracture of the left femur. 2. Left knee: No acute findings. Initial ED EKG: rate (70), AFIB (ALVERTO RAMIREZ) Departure Departure Disposition: HOME OR SELF CARE Condition: Stable Clinical Impression Primary Impression: Closed left hip fracture Referrals: YAIR SARAH MD (PCP/Family) Departure Forms: Customer Survey General Discharge Information Admission Note Spoke With: YAIR SARAH MD Documentation of Exam: Documentation of any treatments & extenuating circumstances including Concerns Regarding Discharge (functional status, medication knowledge or non-compliance, living conditions, etc.) that warrant an admission rather than observation: Patient will require surgery. Dialysis. High risk. Patient would do poorly as an outpatient. (ALVERTO RAMIREZ) PA/LITIGATION LEGAL ASSISTANT Co-Sign Statement Statement: ED Attending supervision documentation- [X]X I saw and evaluated the patient. I have also reviewed all the pertinent lab results and diagnostic results. I agree with the findings and the plan of care as documented in the PA's/LITIGATION LEGAL ASSISTANT's documentation. [X] I have reviewed the ED Record and agree with the PA's/LITIGATION LEGAL ASSISTANT's documentation. [] Additions or exceptions (if any) to the PAs/LITIGATION LEGAL ASSISTANT's note and plan are summarized below: [] ([address]UE [address],ALEXANDRE [place]) Critical Care Note Critical Care Note Critical Care Time: 30-74 min (ALVERTO RAMIREZ)
[2016-12-17] MEDS ORDERED: FUROSEMIDE40 M1 PO (09:15)
--- NOTE | 2016-12-17 09:35 | NUR ---
PT GETS DIALYSIS --, HAS ACCESS ANABELL WITH +THRILL/BRUIT. (RESTRICTED EXTREMITY BRACELET IN PLACE)
--- NOTE | 2016-12-17 09:36 | NUR ---
IV ACCESS ESTABLISHED, #22 RFA LABS DRAWN/SENT (SST, LAVENDAR, BLUE AND PINK TOP TUBES)
[2016-12-17 09:42] LABS: ABSOLUTE BASOPHIL COUNT 0 /CUMM (0.0-0.2); ABSOLUTE EOSINOPHIL COUNT 0 /CUMM (0.0-0.7); ABSOLUTE GRANULOCYTE CT 12.7 /CUMM (1.4-6.5); ABSOLUTE LYMPH COUNT 0.4 /CUMM (1.2-3.4); ABSOLUTE MONOCYTE COUNT 0.3 /CUMM (0.10-0.60); BASOPHIL % 0 % (0.0-2.0); EOSINOPHIL % 0 % (0-5); GRANULOCYTE % 94.7 % (42.2-75.2); HEMATOCRIT 35.7 % (37-47); MEAN CORPUSCULAR HGB 30.4 PG (27.0-31.0); MEAN CORPUSCULAR VOLUME 94.9 FL (81.0-99.0); MEAN PLATELET VOLUME 8.3 FL (7.4-10.4); PLATELET COUNT 249 /CUMM (130-400); RED BLOOD CELL CT 3.76 /CUMM (4.20-5.40); WHITE BLOOD CELL COUNT 13.4 /CUMM (4.8-10.8)
--- NOTE | 2016-12-17 09:45 | NUR ---
PT MEDICATED WITH MORPHINE PER ORDERS FOR PAIN LEVEL 9/10.
[2016-12-17 09:55] LABS: PTT 33 SEC (25-37)
--- NOTE | 2016-12-17 09:57 | NUR ---
PER APARNA IN BLOOD BANK PT HAS HX OF MULTIPLE ANTIBODIES, RECENT TRANSFUSION IN OCTOBER, WOULD REQUIRE SEND OUT FOR BLOOD IF NEEDED AND MAY NEED TO SEND SPECIMEN OUT FOR TESTING R/T ANTIBODIES. REQUESTS TO BE UPDATED REGARDING PT ADMISSION STATUS ETC.
[2016-12-17 09:58] LABS: PT 44.4 SEC (9.4-12.5)
--- NOTE | 2016-12-17 10:00 | NUR ---
CRITICAL TEST RESULTS [id number] JOSEZAFAR 66 F TESTS AND RESULTS: PT 44.4, INR 4.29 Results received and read back by: AUGUSTO JOYNER Results received date and time: 12/17/16 1000 The following provider was notified of the results, and read the results back: LUKASZ EPPS Notified date and time: 12/17/16 at 1000
--- NOTE | 2016-12-17 10:34 | RADIOLOGY REPORT ---
EXAMINATION: XR HIP, LEFT XR KNEE, LEFT CLINICAL INFORMATION: Fall, trauma, pain COMPARISON: Left knee 10/28/2013 TECHNIQUE: Two views of the left hip. 4 views of the left knee. FINDINGS: Left hip: Alignment across the hip appears anatomic, with mild degenerative change. There is a mildly displaced intertrochanteric fracture of the left femur. Visualized portion of the pelvis appears intact. Left knee: Osseous alignment is anatomic. There may be mild tricompartmental joint space narrowing. No significant osteophyte formation. No acute fracture is seen. No significant effusion. There is mild patellar spurring at the insertion of the quadriceps tendon. IMPRESSION: 1. Left hip: Mildly displaced intertrochanteric fracture of the left femur. 2. Left knee: No acute findings.
--- NOTE | 2016-12-17 10:43 | RADIOLOGY REPORT ---
EXAMINATION:\H\ \N\XR CHEST CLINICAL INFORMATION: Fall, pain, trauma COMPARISON: CT 11/26/2016 TECHNIQUE: AP view of the chest was obtained. FINDINGS: Left-sided pacemaker lead tips overlie the right ventricle and coronary sinus. Lung volumes are symmetric. No acute consolidation is seen. No evidence of pneumothorax, significant pleural effusion, or pulmonary edema. Calcific densities along the posterior right pleura are not as well-seen as on recent CT. The cardiac silhouette remains prominent. No acute osseous findings are seen. IMPRESSION: No acute cardiopulmonary findings.
--- NOTE | 2016-12-17 10:49 | History & Physical ---
See Addendum General Information and HPI MD Statement: I have seen and personally examined ZAFAR GARCIA and documented this H&P. The patient is a 66 year old F who presented with a patient stated chief complaint of [Hip Fracture]. Source of Information: patient, old records Exam Limitations: no limitations History of Present Illness: This is a 66-year-old lady with a past medical history significant for oxygen dependent severe COPD, former smoker for more than 40 years, minor hypertension, tinnitus post mitral valve replacement due to mitral stenosis, A. fib, end-stage renal disease on hemodialysis CHF, hypertension, presents after sustaining a mechanical fall tripping on her oxygen tube and then failing down on the left side. She denies hitting her head during the fall, she need not have any lightheadedness or dizziness prior to the fall. She started experiencing pain on her hip especially on putting weight on the left lower limb. She denies any tingling or numbness on the lower limbs Patient denies any chest pain palpitation or shortness of breath unusual level from her baseline COPD. She has no nausea vomiting abdominal pain dysuria or change in urine frequency. Allergies/Medications Allergies: Coded Allergies: NO KNOWN ALLERGIES (11/26/16) Home Med list Albuterol Sulfate (Proair Hfa) 90 MCG HFA.AER.AD 2 PUF INH Q4-6 PRN PRN COPD (Reported) Amlodipine Besylate 10 MG TABLET 1 TAB PO DAILY HTN (Reported) Budesonide/Formoterol Fumarate (Symbicort 160-4.5 Mcg Inhaler) 160 MCG-4.5 MCG/ ACTUATION HFA.AER.AD 2 PUF INH BID COPD (Reported) Cholecalciferol (Vitamin D3) (Vitamin D3) 1,000 UNIT CAPSULE 1 CAP PO DAILY NUTRIENT (Reported) Diltiazem HCl (Diltiazem 24HR ER) 120 MG CAP.ER.24H 1 CAP PO DAILY AFIB ( Reported) Epoetin Jerson (Procrit) 20,000 U/ML ML 7,000 U IV Tuesday PRN WITH DIALYSIS Furosemide 40 MG TABLET 1 TAB PO BID FLUID IN LEGS (Reported) Lorazepam (Ativan) 2 MG TABLET 1 TAB PO QPM PRN ANXIETY (Reported) OXYCODONE HCL (Oxycodone HCl) 15 MG TABLET 1 TAB PO Q4H PAIN (Reported) Prednisone 10 MG TABLET 1 TAB PO DIRECTED COPD TAKE 3 TABLETS FOR 2 DAYS (12/01-12/02) TAKE 2 TABLETS FOR 2 DAYS (12/03-12/04) TAKE 1 TABLET FOR 2 DAYS (12/05-12-06) Sertraline HCl (Zoloft) 100 MG TABLET 1 TAB PO DAILY MENTAL HEALTH (Reported) Sevelamer Carbonate (Renvela) 800 MG TABLET 2 TAB PO TID KIDNEY FUNCTION ( Reported) Sevelamer Carbonate (Renvela) 800 MG TABLET 1 TAB PO TID WM PHOSPHORUS BINDER (Reported) TAKE WITH MEALS Tiotropium [place] (Spiriva) 18 MCG CAP.W.DEV 1 CAP INH DAILY COPD (Reported) Warfarin Sodium (Coumadin) 5 MG TABLET 0.5 TAB PO DAILY BLOOD THINNER ( Reported) Past History Travel History Traveled to [place] past 21 day No Medical History Neurological: TIA EENT: NONE Cardiovascular: AFIB (s/p ablation), CHF, hypertension, mitral stenosis, PACER ( R CHEST) MITRAL VALVE REPLACEMENT Respiratory: COPD, emphysema, pulmonary hypertension, 02 DEP @ 3L VIA N/C Gastrointestinal: 08/06 EGD- suggestion of gastroparesis 08/06- colonoscopy- fair prep, but otherwise normal Hepatic: NONE Renal: chronic kidney disease, FISTULA L ARM Musculoskeletal: chronic back pain Psychiatric: anxiety, depression Endocrine: NONE Blood Disorders: anemia Cancer(s): NONE 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 valve replacement February 1996 at [facility] evacuation of left arm hematoma pacemaker MVR Past Family/Social History Family History Relations & Conditions if any BROTHER FH: diabetes mellitus Psychosocial History Services at Home: Nursing, Oxygen, Physical Therapy Functional Ability ADLs Independent: dressing, eating, toileting, bathing. Ambulation: independent Review of Systems Review of Systems Constitutional: Denies: chills, fever. Cardiovascular: Denies: chest pain, palpitations. Respiratory: Denies: cough, short of breath. GI: Denies: abdominal pain, nausea, vomiting. Genitourinary: Denies: no symptoms. Musculoskeletal: Reports: see HPI. All Other Systems: Reviewed and Negative Exam & Diagnostic Data Last 24 Hrs of Vital Signs/I&O Vital Signs Date Time Temp Pulse Resp B/P Pulse O2 O2 Flow FiO2 Ox Delivery Rate 12/17 1236 98.1 76 18 152/72 98 Nasal 3.0L Cannula 12/17 1048 98.3 71 20 160/73 99 Nasal 3.0L Cannula 12/17 0945 95 Nasal 3.0L Cannula 12/17 0906 97.2 77 20 143/74 100 Nasal 4.0L Cannula Intake & Output 12/17 1600 12/17 0800 12/17 0000 Intake Total Output Total Balance Patient 165 lb Weight Physical Exam General Appearance Alert, Oriented X3, Cooperative, No Acute Distress HEENT Atraumatic, Mucous Membr. moist/pink Neck No JVD Cardiovascular Normal S1, Normal S2 Lungs Clear to Auscultation, Normal Air Movement Abdomen Normal Bowel Sounds, Soft Extremities No Clubbing, No Cyanosis, No Edema, Left LL slightly shorter than the right Last 24 Hrs of Labs/Thien: Laboratory Tests 12/17/16 0930: Anion Gap 15, Estimated GFR 9 L, BUN/Creatinine Ratio 15.3, Glucose 114 H, Calcium 8.5, Total Bilirubin 0.6, AST 10 L, ALT 26, Alkaline Phosphatase 84, Total Protein 6.2 L, Albumin 3.8, Globulin 2.4, Albumin/Globulin Ratio 1.6, PT 44.4 *H, INR 4.29 *H, APTT 33, CBC w Diff MAN DIFF ORDERED, RBC 3.76 L, MCV 94.9, MCH 30.4, RDW 15.0 H, MPV 8.3, Gran % 94.7 H, Lymphocytes % 3.3 L, Monocytes % 2.0, Eosinophils % 0, Basophils % 0 L, Absolute Granulocytes 12.7 H, Absolute Lymphocytes 0.4 L, Absolute Monocytes 0.3, Absolute Eosinophils 0, Absolute Basophils 0, Platelet Estimate VERIFIED BY SMEAR, Anisocytosis 1+, PUBS MCHC 32.0 L Diagnostic Data EKG Results Ventricular paced with A. fib CXR Results No pathology Assessment/Plan Assessment: This is this a 66 years old lady with past medical history of COPD oxygen dependent, hypertension, mitral valve stenosis status post valve replacement, A. fib, CHF, hypertension who presented after sustaining a mechanical fall and having evidence of intertrochanteric fracture with mild displacement. Will go for surgical hip repair. Patient has end-stage renal disease and is on hemodialysis reviewed by staff respiratory therapist and will get hemodialysis. This patient with prosthetic valves with require normalization of INR with heparin brdiging to avoid risk of thromboembolism. Problem list Hip fracture End-stage renal disease on hemodialysis Hypertension Prosthetic mitral valves AZaira guillory Admit the patient to general medicine floor Vital signs every shift Hemodialysis per nephrology Cardiac he clearance for hip repair surgery, Dr. Nieves on board Active pain management Continue all home medications for her chronic conditions. As Ranked By This Provider Problem List: 1. ESRD (end stage renal disease) on dialysis 2. Acute bronchitis with chronic obstructive pulmonary disease (COPD) 3. Supratherapeutic INR 4. Hip fracture Core Measures/Miscellaneous Acute Coronary Syndrome ACS Diagnosis: No Cerebrovascular Accident CVA/TIA Diagnosis: No Congestive Heart Failure CHF Diagnosis: No Venous Thromboembolism VTE Risk Factors: Acute medical illness, Age > 40 VTE Prophylaxis Ordered Inpt: Pharm- Warfarin No Mech VTE prophylaxis d/t: No contraindications No VTE Pharm Prophylaxis d/t: No contraindications VTE Diagnosis: No VTE Type: NONE VTE Confirmed by (Test): NONE Severe Sepsis Severe Sepsis Present: No Septic Shock Septic Shock Present: No Miscellaneous Documentation Attending Case Discussed With: YAIR SARAH MD Primary Care Physician: YAIR SARAH MD Patient sees these Specialists MD Dr. Ezequiel Young Level of Patient Care: General Medicine Resident Review Statement Resident Statement: examined this patient, my review as above
--- NOTE | 2016-12-17 11:00 | NUR ---
PT MEDICATED WITH DILAUDID PER ORDERS FOR PAIN LEVEL 06/02.
--- NOTE | 2016-12-17 11:24 | Admission Certification ---
Admission Certification Certification Statement - As attending physician, I certify that at the time of - admission, based on clinical presentation, severity of - symptoms, need for further diagnostic testing and - therapeutic interventions, and risk of adverse outcomes - without in-hospital treatment, in my clinical assessment, - this patient requires an acute hospital stay for a minimum - of two nights or longer. I have also considered psychsocial - factors such as support system, advanced age, financial - issues, cognitive issues, and failed out-patient treatments, - past re-admission history, safety of patient, and lack of - compliance as applicable. Specific rationale supporting this admission is: Mechanical fall with fractured hip in a patient with end stage COPD a fib on coumadin ,INR supratherapeutic
--- NOTE | 2016-12-17 11:29 | PN- Att Addend ---
Attending Addendum Attending Brief Note 66-year-old white female was just here an exacerbation of her COPD at returned home with home oxygen and earlier today she was helping her pull up his pains because he hurt his wrist earlier, and tripped and fell, came to the ER unable to walk and in pain, and x-rays showed a mildly displaced intertrochanteric fracture of the left femur . Her INR is still a little supratherapeutic with all her comorbidities be admitted to medicine and I already notified cardiology Dr. Nieves and nephrology the patient is going to be admitted to be cleared for surgery also we have to address the anticoagulation issue. Laboratory Tests 12/17 0930 Chemistry Sodium (137 - 145 mmol/L) 137 Potassium (3.5 - 5.1 mmol/L) 5.3 H Chloride (98 - 107 mmol/L) 100 Carbon Dioxide (22 - 30 mmol/L) 23 Anion Gap (5 - 16) 15 BUN (7 - 17 mg/dL) 72 H Creatinine (0.5 - 1.0 mg/dL) 4.7 H Estimated GFR (>60 ml/min) 9 L BUN/Creatinine Ratio (7 - 25 %) 15.3 Glucose (65 - 99 mg/dL) 114 H Calcium (8.4 - 10.2 mg/dL) 8.5 Total Bilirubin (0.2 - 1.3 mg/dL) 0.6 AST (14 - 36 U/L) 10 L ALT (9 - 52 U/L) 26 Alkaline Phosphatase (<127 U/L) 84 Total Protein (6.3 - 8.2 g/dL) 6.2 L Albumin (3.5 - 5.0 g/dL) 3.8 Globulin (1.9 - 4.2 gm/dL) 2.4 Albumin/Globulin Ratio (1.1 - 2.2 %) 1.6 Coagulation PT (9.4 - 12.5 SEC) 44.4 *H INR (0.90 - 1.19) 4.29 *H APTT (25 - 37 SEC) 33 Hematology CBC w Diff MAN DIFF ORDERED WBC (4.8 - 10.8 /CUMM) 13.4 H RBC (4.20 - 5.40 /CUMM) 3.76 L Hgb (12.0 - 16.0 G/DL) 11.4 L Hct (37 - 47 %) 35.7 L MCV (81.0 - 99.0 FL) 94.9 MCH (27.0 - 31.0 PG) 30.4 RDW (11.5 - 14.5 %) 15.0 H Plt Count (130 - 400 /CUMM) 249 MPV (7.4 - 10.4 FL) 8.3 Gran % (42.2 - 75.2 %) 94.7 H Lymphocytes % (20.5 - 51.1 %) 3.3 L Monocytes % (1.7 - 9.3 %) 2.0 Eosinophils % (0 - 5 %) 0 Basophils % (0.0 - 2.0 %) 0 L Absolute Granulocytes (1.4 - 6.5 /CUMM) 12.7 H Absolute Lymphocytes (1.2 - 3.4 /CUMM) 0.4 L Absolute Monocytes (0.10 - 0.60 /CUMM) 0.3 Absolute Eosinophils (0.0 - 0.7 /CUMM) 0 Absolute Basophils (0.0 - 0.2 /CUMM) 0 Platelet Estimate (ADEQUATE) VERIFIED BY SMEAR Anisocytosis 1+ PUBS MCHC (33.0 - 37.0 G/DL) 32.0 L
--- NOTE | 2016-12-17 11:43 | Cons- Nephrology ---
General Information and HPI Consulting Request Date of Consult: 12/17/16 Requested By: Fern Reason for Consult: ESRD Source of Information: patient, old records Exam Limitations: no limitations History of Present Illness: 66 yr old WF w mult med problems including HTN, severe COPD, A fib s/p pacer, MVR, & ESRD on chronic HD admit today after mechnical fall @ home --> L hip fx. No syncope or othrostatic sx. Last HD 2 days ago; denies gross uremic sx. Chronic SOB w/o change. No CP. ESRD complicated by known secondary hyperPTH on IV activated Vit D --> Hectorol as out pt w HD. Allergies/Medications Allergies: Coded Allergies: NO KNOWN ALLERGIES (11/26/16) Home Med List: Albuterol Sulfate (Proair Hfa) 0.09 MG/Actuation LUNA 2 PUFF INH Q4 HRS NEEDED PRN SHORTNESS OF BREATH (Reported) Amlodipine Besylate (Amlodipine) 10 MG TAB 1 TAB PO AT BEDTIME high blood pressure Budesonide/Formoterol Fumara (Symbicort 160-4.5 Mcg Inhaler) 160 MCG/4.5 MCG PUF 2 PUF INH BID COPD (Reported) Cholecalciferol (Vitamin D3) 1,000 UNIT TABLET 1,000 IU PO DAILY VITAMIN D SUPPLEMENT Diltiazem Cd (Diltiazem ER) 120 MG CAP.ER.DEG 120 MG PO DAILY A.Fib Epoetin Jerson (Procrit) 20,000 U/ML ML 7,000 U IV Tuesday PRN WITH DIALYSIS Furosemide (Lasix) 80 MG TAB 1 TAB PO AD DIURETIC (Reported) Furosemide 40 MG TABLET 1 TAB PO BID FLUID IN LEGS (Reported) Lorazepam (Ativan) 2 MG TABLET 1 TAB PO QPM PRN ANXIETY (Reported) OXYCODONE HCL (Oxycodone HCl) 15 MG TABLET 1 TAB PO Q4H PAIN (Reported) Prednisone 10 MG TABLET 1 TAB PO DIRECTED COPD TAKE 3 TABLETS FOR 2 DAYS (12/01-12/02) TAKE 2 TABLETS FOR 2 DAYS (12/03-12/04) TAKE 1 TABLET FOR 2 DAYS (12/05-12-06) SERTRALINE HCL (Sertraline Hydrochloride) 100 MG TABLET 1 TAB PO DAILY Depression (Reported) Sevelamer Carbonate (Renvela) 800 MG TABLET 1 TAB PO TID WM PHOSPHORUS BINDER (Reported) TAKE WITH MEALS Tiotropium [place] (Spiriva) 18 MCG CAP.W.DEV 1 CAP INH DAILY COPD (Reported) Warfarin Sodium (Coumadin) 5 MG TABLET 0.5 TAB PO DAILY BLOOD THINNER ( Reported) Current Medications: Current Medications Sig/Tripp Start time Last Medication Dose Route Stop Time Status Admin Hydromorphone HCl 0 .STK-MED ONE 12/17 1054 DC .ROUTE Hydromorphone HCl 0.5 MG ONCE ONE 12/17 1045 DC 12/17 IV 12/17 1046 1100 Morphine Sulfate 3 MG ONCE ONE 12/17 0945 DC 12/17 IV 12/17 0946 0943 Morphine Sulfate 0 .STK-MED ONE 12/17 0941 DC .ROUTE Review of Systems Review of Systems Constitutional: Reports: no symptoms. EENTM: Reports: no symptoms. Cardiovascular: Reports: no symptoms. Respiratory: Reports: no symptoms. GI: Reports: no symptoms. Genitourinary: Reports: no symptoms. Musculoskeletal: Denies: see HPI. Skin: Reports: no symptoms. Neurological/Psychological: Reports: no symptoms. Hematologic/Endocrine: Reports: no symptoms. Immunologic/Allergic: Reports: no symptoms. All Other Systems: Reviewed and Negative Past History Travel History Traveled to [place] past 21 day No Medical History Neurological: TIA EENT: NONE Cardiovascular: AFIB (s/p ablation), CHF, hypertension, mitral stenosis, PACER ( R CHEST) MITRAL VALVE REPLACEMENT Respiratory: COPD, emphysema, pulmonary hypertension, 02 DEP @ 3L VIA N/C Gastrointestinal: 08/06 EGD- suggestion of gastroparesis 08/06- colonoscopy- fair prep, but otherwise normal Hepatic: NONE Renal: chronic kidney disease, FISTULA L ARM Musculoskeletal: chronic back pain Psychiatric: anxiety, depression Endocrine: NONE Blood Disorders: anemia Cancer(s): NONE 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 [facility] valve replacement February 1996 at R evacuation of left arm hematoma pacemaker MVR Family History Relations & Conditions If Any: BROTHER FH: diabetes mellitus Psychosocial History Services at Home: Nursing, Oxygen, Physical Therapy Functional Ability ADLs Independent: dressing, eating, toileting, bathing. Ambulation: independent Exam & Diagnostic Data Vital Signs and I&O Vital Signs Date Time Temp Pulse Resp B/P Pulse O2 O2 Flow FiO2 Ox Delivery Rate 12/17 1048 98.3 71 20 160/73 99 Nasal 3.0L Cannula 12/17 0945 95 Nasal 3.0L Cannula 12/17 0906 97.2 77 20 143/74 100 Nasal 4.0L Cannula Intake & Output 12/17 1600 12/17 0400 12/16 0400 12/15 0400 Intake Total Output Total Balance Patient 165 lb Weight Physical Exam General Appearance: well developed/nourished, no apparent distress, alert Head: atraumatic, normal appearance Eyes: Bilateral: normal appearance. Ears, Nose, Throat: normal ENT inspection Neck: normal inspection, supple Respiratory: normal breath sounds, no respiratory distress, quiet respiration, lungs clear Cardiovascular: regular rate/rhythm, prosthetic MV sounds Gastrointestinal: soft, non-tender, no organomegaly Extremities: + bruit ANABELL AVF Neurologic/Psych: no motor/sensory deficits, awake, alert, oriented x 3, leguillon debeader II- XII nml as tested Skin: ecchymosis Lymphatic: no anterior cervical eusebio Results Pertinent Lab Results: Laboratory Tests 12/17 929 Chemistry Sodium (137 - 145 mmol/L) 137 Potassium (3.5 - 5.1 mmol/L) 5.3 H Chloride (98 - 107 mmol/L) 100 Carbon Dioxide (22 - 30 mmol/L) 23 Anion Gap (5 - 16) 15 BUN (7 - 17 mg/dL) 72 H Creatinine (0.5 - 1.0 mg/dL) 4.7 H Estimated GFR (>60 ml/min) 9 L BUN/Creatinine Ratio (7 - 25 %) 15.3 Glucose (65 - 99 mg/dL) 114 H Calcium (8.4 - 10.2 mg/dL) 8.5 Total Bilirubin (0.2 - 1.3 mg/dL) 0.6 AST (14 - 36 U/L) 10 L ALT (9 - 52 U/L) 26 Alkaline Phosphatase (<127 U/L) 84 Total Protein (6.3 - 8.2 g/dL) 6.2 L Albumin (3.5 - 5.0 g/dL) 3.8 Globulin (1.9 - 4.2 gm/dL) 2.4 Albumin/Globulin Ratio (1.1 - 2.2 %) 1.6 Coagulation PT (9.4 - 12.5 SEC) 44.4 *H INR (0.90 - 1.19) 4.29 *H APTT (25 - 37 SEC) 33 Hematology CBC w Diff MAN DIFF ORDERED WBC (4.8 - 10.8 /CUMM) 13.4 H RBC (4.20 - 5.40 /CUMM) 3.76 L Hgb (12.0 - 16.0 G/DL) 11.4 L Hct (37 - 47 %) 35.7 L MCV (81.0 - 99.0 FL) 94.9 MCH (27.0 - 31.0 PG) 30.4 RDW (11.5 - 14.5 %) 15.0 H Plt Count (130 - 400 /CUMM) 249 MPV (7.4 - 10.4 FL) 8.3 Gran % (42.2 - 75.2 %) 94.7 H Lymphocytes % (20.5 - 51.1 %) 3.3 L Monocytes % (1.7 - 9.3 %) 2.0 Eosinophils % (0 - 5 %) 0 Basophils % (0.0 - 2.0 %) 0 L Absolute Granulocytes (1.4 - 6.5 /CUMM) 12.7 H Absolute Lymphocytes (1.2 - 3.4 /CUMM) 0.4 L Absolute Monocytes (0.10 - 0.60 /CUMM) 0.3 Absolute Eosinophils (0.0 - 0.7 /CUMM) 0 Absolute Basophils (0.0 - 0.2 /CUMM) 0 Platelet Estimate (ADEQUATE) VERIFIED BY SMEAR Anisocytosis 1+ PUBS MCHC (33.0 - 37.0 G/DL) 32.0 L Imaging/Other Studies: EXAMINATION:\H\ \N\XR CHEST CLINICAL INFORMATION: Fall, pain, trauma COMPARISON: CT 11/26/2016 TECHNIQUE: AP view of the chest was obtained. FINDINGS: Left-sided pacemaker lead tips overlie the right ventricle and coronary sinus. Lung volumes are symmetric. No acute consolidation is seen. No evidence of pneumothorax, significant pleural effusion, or pulmonary edema. Calcific densities along the posterior right pleura are not as well-seen as on recent CT. The cardiac silhouette remains prominent. No acute osseous findings are seen. IMPRESSION: No acute cardiopulmonary findings. XR HIP, LEFT XR KNEE, LEFT CLINICAL INFORMATION: Fall, trauma, pain COMPARISON: Left knee 10/28/2013 TECHNIQUE: Two views of the left hip. 4 views of the left knee. FINDINGS: Left hip: Alignment across the hip appears anatomic, with mild degenerative change. There is a mildly displaced intertrochanteric fracture of the left femur. Visualized portion of the pelvis appears intact. Left knee: Osseous alignment is anatomic. There may be mild tricompartmental joint space narrowing. No significant osteophyte formation. No acute fracture is seen. No significant effusion. There is mild patellar spurring at the insertion of the quadriceps tendon. IMPRESSION: 1. Left hip: Mildly displaced intertrochanteric fracture of the left femur. 2. Left knee: No acute findings. Assessment/Plan Assessment/Recommendations Assessment: 1. ESRD: due to presumed HTN nephrosclerosis; last HD 2 days ago & will need HD today in anticipation of surgical hip repair 2. Hyperkalemia: mild; correct w HD 3. L hip fx: in setting of secondary hyperPTH; continue activated Vit D w HD. OK for surg from renal perspective after dialysis Recommendations: 1. HD today 2. EPO 4000 units IV tiw w HD 3. sevelamer 2400 mg w meals 4. two gram Na & K diet restriction 5. nephrocap 1 qday 6. Zemplar 2 mcg IV tiw w HD
[2016-12-17] MEDS ORDERED: RENVELA800 M1 PO (12:32)
--- NOTE | 2016-12-17 12:34 | NUR ---
REPORT TO JAYASHREE OrozcoA, PT GOING TO RM [id number].
--- NOTE | 2016-12-17 13:16 | Cons- Orthopedic ---
General Information and HPI Consulting Request Date of Consult: 12/17/16 Requested By: YAIR SARAH MD Reason for Consult: Left hip fracture Source of Information: patient Exam Limitations: no limitations History of Present Illness: Mrs. castaneda is a 66-year-old female with a past medical history significant for oxygen dependent severe COPD, former smoker for more than 40 years, minor hypertension, tinnitus post mitral valve replacement due to mitral stenosis, A. fib, CHF, hypertension, tripped and fell over her oxygen tubing at home and fell onto her left side. She was unable to ambulate after the fall so she was transferred to [facility] emergency department at which time x-rays were taken demonstrating a left intertrochanteric hip fracture. She has no other complaints at this time related to her axial skeleton Allergies/Medications Allergies: Coded Allergies: NO KNOWN ALLERGIES (11/26/16) Home Med List: Albuterol Sulfate (Proair Hfa) 0.09 MG/Actuation LUNA 2 PUFF INH Q4 HRS NEEDED PRN SHORTNESS OF BREATH (Reported) Amlodipine Besylate (Amlodipine) 10 MG TAB 1 TAB PO AT BEDTIME high blood pressure Budesonide/Formoterol Fumara (Symbicort 160-4.5 Mcg Inhaler) 160 MCG/4.5 MCG PUF 2 PUF INH BID COPD (Reported) Cholecalciferol (Vitamin D3) 1,000 UNIT TABLET 1,000 IU PO DAILY VITAMIN D SUPPLEMENT Diltiazem Cd (Diltiazem ER) 120 MG CAP.ER.DEG 120 MG PO DAILY A.Fib Epoetin Jerson (Procrit) 20,000 U/ML ML 7,000 U IV Tuesday PRN WITH DIALYSIS Furosemide (Lasix) 80 MG TAB 1 TAB PO AD DIURETIC (Reported) Furosemide 40 MG TABLET 1 TAB PO BID FLUID IN LEGS (Reported) Lorazepam (Ativan) 2 MG TABLET 1 TAB PO QPM PRN ANXIETY (Reported) OXYCODONE HCL (Oxycodone HCl) 15 MG TABLET 1 TAB PO Q4H PAIN (Reported) Prednisone 10 MG TABLET 1 TAB PO DIRECTED COPD TAKE 3 TABLETS FOR 2 DAYS (12/01-12/02) TAKE 2 TABLETS FOR 2 DAYS (12/03-12/04) TAKE 1 TABLET FOR 2 DAYS (12/05-12-06) SERTRALINE HCL (Sertraline Hydrochloride) 100 MG TABLET 1 TAB PO DAILY Depression (Reported) Sevelamer Carbonate (Renvela) 800 MG TABLET 2 TAB PO TID KIDNEY FUNCTION ( Reported) Sevelamer Carbonate (Renvela) 800 MG TABLET 1 TAB PO TID WM PHOSPHORUS BINDER (Reported) TAKE WITH MEALS Tiotropium [place] (Spiriva) 18 MCG CAP.W.DEV 1 CAP INH DAILY COPD (Reported) Warfarin Sodium (Coumadin) 5 MG TABLET 0.5 TAB PO DAILY BLOOD THINNER ( Reported) Past History Medical History Neurological: TIA EENT: NONE Cardiovascular: AFIB (s/p ablation), CHF, hypertension, mitral stenosis, PACER ( R CHEST) MITRAL VALVE REPLACEMENT Respiratory: COPD, emphysema, pulmonary hypertension, 02 DEP @ 3L VIA N/C Gastrointestinal: 08/06 EGD- suggestion of gastroparesis 08/06- colonoscopy- fair prep, but otherwise normal Hepatic: NONE Renal: chronic kidney disease, FISTULA L ARM Musculoskeletal: chronic back pain Psychiatric: anxiety, depression Endocrine: NONE Blood Disorders: anemia Cancer(s): NONE FAMILY CENTERED SPECIALIST/Reproductive: NONE Surgical History Pertinent Surgical History: appendectomy, Av fistual on left side [employer] valve replacement February 1996 at [facility] evacuation of left arm hematoma pacemaker MVR Family History Relations & Conditions If Any: BROTHER FH: diabetes mellitus Psychosocial History Services at Home: Nursing, Oxygen, Physical Therapy Functional Ability ADLs Independent: dressing, eating, toileting, bathing. Ambulation: independent Exam & Diagnostic Data Vital Signs and I&O Vital Signs Date Time Temp Pulse Resp B/P Pulse O2 O2 Flow FiO2 Ox Delivery Rate 12/17 1236 98.1 76 18 152/72 98 Nasal 3.0L Cannula 12/17 1048 98.3 71 20 160/73 99 Nasal 3.0L Cannula 12/17 0945 95 Nasal 3.0L Cannula 12/17 0906 97.2 77 20 143/74 100 Nasal 4.0L Cannula Intake & Output 12/17 1600 12/17 0812/17 0000 12/16 1600 12/16 0812/16 0000 Intake Total Output Total Balance Patient 165 lb Weight Physical Exam General Appearance: alert, awake, anxious Head: atraumatic, normal appearance Eyes: Bilateral: PERRL. Ears, Nose, Throat: normal pharynx Respiratory: wheezing Cardiovascular: regular rate/rhythm Gastrointestinal: normal bowel sounds, soft Extremities: no edema Neurologic/Psych: awake, alert Last 24 Hours of Labs: Laboratory Tests 12/17 0930 Chemistry Sodium (137 - 145 mmol/L) 137 Potassium (3.5 - 5.1 mmol/L) 5.3 H Chloride (98 - 107 mmol/L) 100 Carbon Dioxide (22 - 30 mmol/L) 23 Anion Gap (5 - 16) 15 BUN (7 - 17 mg/dL) 72 H Creatinine (0.5 - 1.0 mg/dL) 4.7 H Estimated GFR (>60 ml/min) 9 L BUN/Creatinine Ratio (7 - 25 %) 15.3 Glucose (65 - 99 mg/dL) 114 H Calcium (8.4 - 10.2 mg/dL) 8.5 Total Bilirubin (0.2 - 1.3 mg/dL) 0.6 AST (14 - 36 U/L) 10 L ALT (9 - 52 U/L) 26 Alkaline Phosphatase (<127 U/L) 84 Total Protein (6.3 - 8.2 g/dL) 6.2 L Albumin (3.5 - 5.0 g/dL) 3.8 Globulin (1.9 - 4.2 gm/dL) 2.4 Albumin/Globulin Ratio (1.1 - 2.2 %) 1.6 Coagulation PT (9.4 - 12.5 SEC) 44.4 *H INR (0.90 - 1.19) 4.29 *H APTT (25 - 37 SEC) 33 Hematology CBC w Diff MAN DIFF ORDERED WBC (4.8 - 10.8 /CUMM) 13.4 H RBC (4.20 - 5.40 /CUMM) 3.76 L Hgb (12.0 - 16.0 G/DL) 11.4 L Hct (37 - 47 %) 35.7 L MCV (81.0 - 99.0 FL) 94.9 MCH (27.0 - 31.0 PG) 30.4 RDW (11.5 - 14.5 %) 15.0 H Plt Count (130 - 400 /CUMM) 249 MPV (7.4 - 10.4 FL) 8.3 Gran % (42.2 - 75.2 %) 94.7 H Lymphocytes % (20.5 - 51.1 %) 3.3 L Monocytes % (1.7 - 9.3 %) 2.0 Eosinophils % (0 - 5 %) 0 Basophils % (0.0 - 2.0 %) 0 L Absolute Granulocytes (1.4 - 6.5 /CUMM) 12.7 H Absolute Lymphocytes (1.2 - 3.4 /CUMM) 0.4 L Absolute Monocytes (0.10 - 0.60 /CUMM) 0.3 Absolute Eosinophils (0.0 - 0.7 /CUMM) 0 Absolute Basophils (0.0 - 0.2 /CUMM) 0 Platelet Estimate (ADEQUATE) VERIFIED BY SMEAR Anisocytosis 1+ PUBS MCHC (33.0 - 37.0 G/DL) 32.0 L Imaging Results: Mrs. castaneda is a 66-year-old female who presents to emergency room after sustaining mechanical fall resulting in left intertrochanteric hip fracture. Due to her extensive past medical history the patient was admitted to the medical service and optimized for open reduction internal fixation of left hip fracture. Dr. Vick of [facility] will be the orthopedic attending for this patient. Plan Reverse anticoagulation when safe Bed rest at this time Please contact surgical service when patient is cleared for open reduction internal fixation of left hip fracture Assessment/Plan Assessment/Plan See below Consult Acknowledgment - Thank you for your consult request.
[2016-12-17] MEDS ORDERED: PROAIR HFA8.5 GM INH (13:51)
[2016-12-17] MEDS ORDERED: AMLODIPINE BESY10 M1 PO (13:51)
[2016-12-17 13:52] VITALS: BP 130/80
[2016-12-17] MEDS ORDERED: SYMBICORT 16010.2 GM INH (13:52)
[2016-12-17] MEDS ORDERED: VITAMIN D31000 UNI1 PO (13:52)
[2016-12-17] MEDS ORDERED: DILTIAZEM 24HR120 MG PO (13:53)
[2016-12-17] MEDS ORDERED: ZOLOFT100 M1 PO (13:54)
[2016-12-17] MEDS ORDERED: SPIRIVA18 MCG INH (13:55)
--- NOTE | 2016-12-17 20:34 | Cons- Cardiology ---
General Information and HPI Consulting Request Date of Consult: 12/17/16 Requested By: YAIR SARAH MD Reason for Consult: Surgical clearance for noncardiac surgery (orthopedic) from a cardiac standpoint. Source of Information: patient, old records Exam Limitations: poor historian History of Present Illness: Mrs. 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 She was last admitted to [facility] (11/26-) for an acute exacerbation of her COPD, as well as, her chronic kidney disease.consultations were obtained from pulmonary medicine and nephrologyand she fortunately improved with standard therapy. She reports doing well since discharge at home, but earlier today while helping her tripped over some tubing and fell sustaininga left hip fracture for which surgical intervention has been recommended. 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 At present she states that aside from the left lower extremity pain she is experiencing she is feeling unchanged and denies any chest discomfort, palpitations, shortness of breath, lower extremity edema, etc. Last echocardiogram (06/04/2015) revealed mild left ventricular dilatation mild concentric left ventricular hypertrophy, abnormal septal motion consistent with postoperative statend no other regional wall motion abnormalities with a borderline normal left ventricular ejection fraction of 50-55%, moderate right ventricular dilatation, mild to moderate right atrial dilatation, pacemaker wires and right heart, moderate to severe left date she'll dilatation, bileaflet tilting disc mechanical mitral prosthesiswith gradient across the prosthetic mitral valve within the expected range, no mitral regurgitation, mild aortic stenosis, trace to mild aortic regurgitation, mild to moderate tricuspid regurgitation, moderate to severe pulmonary hypertension, no pulmonic regurgitation, and a dilated inferior vena cava. Allergies/Medications Allergies: Coded Allergies: NO KNOWN ALLERGIES (11/26/16) Home Med List: Albuterol Sulfate (Proair Hfa) 90 MCG HFA.AER.AD 2 PUF INH Q4-6 PRN PRN COPD (Reported) Amlodipine Besylate 10 MG TABLET 1 TAB PO DAILY HTN (Reported) Budesonide/Formoterol Fumarate (Symbicort 160-4.5 Mcg Inhaler) 160 MCG-4.5 MCG/ ACTUATION HFA.AER.AD 2 PUF INH BID COPD (Reported) Cholecalciferol (Vitamin D3) (Vitamin D3) 1,000 UNIT CAPSULE 1 CAP PO DAILY NUTRIENT (Reported) Diltiazem HCl (Diltiazem 24HR ER) 120 MG CAP.ER.24H 1 CAP PO DAILY AFIB ( Reported) Epoetin Jerson (Procrit) 20,000 U/ML ML 7,000 U IV Tuesday PRN WITH DIALYSIS Furosemide 40 MG TABLET 1 TAB PO BID FLUID IN LEGS (Reported) Lorazepam (Ativan) 2 MG TABLET 1 TAB PO QPM PRN ANXIETY (Reported) OXYCODONE HCL (Oxycodone HCl) 15 MG TABLET 1 TAB PO Q4H PAIN (Reported) Prednisone 10 MG TABLET 1 TAB PO DIRECTED COPD TAKE 3 TABLETS FOR 2 DAYS (12/01-12/02) TAKE 2 TABLETS FOR 2 DAYS (12/03-12/04) TAKE 1 TABLET FOR 2 DAYS (12/05-12-06) Sertraline HCl (Zoloft) 100 MG TABLET 1 TAB PO DAILY MENTAL HEALTH (Reported) Sevelamer Carbonate (Renvela) 800 MG TABLET 2 TAB PO TID KIDNEY FUNCTION ( Reported) Sevelamer Carbonate (Renvela) 800 MG TABLET 1 TAB PO TID WM PHOSPHORUS BINDER (Reported) TAKE WITH MEALS Tiotropium [place] (Spiriva) 18 MCG CAP.W.DEV 1 CAP INH DAILY COPD (Reported) Warfarin Sodium (Coumadin) 5 MG TABLET 0.5 TAB PO DAILY BLOOD THINNER ( Reported) Current Medications: Current Medications Sig/Tripp Start time Last Medication Dose Route Stop Time Status Admin Acetaminophen 650 MG Q6P PRN 12/19 1700 AC PO Albuterol Sulfate 3 ML EVERY 4 HRS/AWAKE 12/19 2000 AC 12/20 INH 1358 Albuterol Sulfate 2 PUF Q4-6 PRN PRN 12/19 1700 AC INH Amlodipine Besylate 10 MG AT BEDTIME 12/19 2200 AC 12/19 PO 2133 Bisacodyl 5 MG AT BEDTIME 12/19 2200 AC 12/19 PO 2132 Budesonide/ 2 PUF BID 12/19 2200 AC 12/20 Formoterol Fumarate INH 1100 Cholecalciferol 1,000 IU DAILY 12/20 1000 AC 12/20 PO 1100 Diltiazem HCl 120 MG DAILY 12/20 1000 AC 12/20 PO 1111 Epoetin Jerson 4,000 UNIT MoWeFr 12/20 1653 AC IV Furosemide 40 MG 7:30 AM, & 4:30 PM 12/20 0730 AC PO Heparin Sodium 5,800 UNIT ONCE ONE 12/20 0540 DC 12/20 (Porcine) IV 12/20 0541 0530 Heparin Sodium 10,000 UNIT .STK-MED ONE 12/20 0521 DC (Porcine) IV 12/20 0522 Heparin Sodium/ 25,000 UNIT Q24H 12/19 2100 AC 12/20 Dextrose IV 1443 Dextrose/Water 500 ML Hydromorphone HCl 1 MG Q4P PRN 12/20 1415 AC 12/20 IV 1826 Hydromorphone HCl 1 MG ONCE ONE 12/20 1315 DC 12/20 IV 12/20 1316 1330 Hydromorphone HCl 1 MG Q6P PRN 12/19 1700 DC 12/20 IV 1100 Lorazepam 2 MG QPM 12/19 2200 AC 12/19 PO 2132 Multivitamins 1 TAB DAILY 12/20 1000 AC 12/20 PO 1100 Oxycodone HCl 15 MG Q6 PRN 12/19 1700 AC 12/20 PO 0920 Paricalcitol 2 MCG MoWeFr 12/20 1653 AC IV Polyethylene Glycol 17 GM DAILY 12/20 1000 AC PO Prednisone 10 MG DAILY 12/20 1000 AC 12/20 PO 1100 Senna 187 MG AT BEDTIME 12/19 2200 AC 12/19 PO 2132 Sertraline HCl 100 MG DAILY 12/20 1000 AC 12/20 PO 1100 Sevelamer HCl 2,400 MG TIDAC 12/19 1700 AC 12/20 PO 1655 Tiotropium [place] 1 PUF DAILY 12/20 1000 AC 12/20 INH 1101 Warfarin Sodium 3 MG ONCE ONE 12/20 1430 DC 12/20 PO 12/20 1431 1656 Review of Systems Review of Systems: A 14 point system review was obtained and was noncontributory, other than as above. Past History Travel History Traveled to [place] past 21 day No Medical History Blood Transfusion Hx: Yes Neurological: TIA EENT: NONE Cardiovascular: AFIB (s/p ablation), CHF, hypertension, mitral stenosis, PACER ( R CHEST) MITRAL VALVE REPLACEMENT Respiratory: COPD, emphysema, pulmonary hypertension, 02 DEP @ 3L VIA N/C Gastrointestinal: 08/06 EGD- suggestion of gastroparesis 08/06- colonoscopy- fair prep, but otherwise normal Hepatic: NONE Renal: chronic kidney disease, FISTULA L ARM Musculoskeletal: chronic back pain Psychiatric: anxiety, depression Endocrine: NONE Blood Disorders: anemia Cancer(s): NONE FELLER HAND/Reproductive: NONE Surgical History Surgical History: appendectomy, Av fistual on left side [facility] valve replacement February 1996 at R evacuation of left arm hematoma pacemaker MVR Family History Relations & Conditions If Any: BROTHER FH: diabetes mellitus Psychosocial History Services at Home: Nursing, Oxygen, Physical Therapy Smoking Status: Former Smoker Functional Ability ADLs Independent: dressing, eating, toileting, bathing. Ambulation: independent ECHO Results (as available) Report: CONCLUSIONS Mild left ventricular dilatation. Mild concentric left ventricular hypertrophy. Abnormal septal motion consistent with postoperative state. No other obvious regional wall motion abnormalities. Borderline normal left ventricular ejection fraction estimated at 50-55%. Moderate right ventricular dilatation. Catheter/pacemaker wire in the right ventricular cavity. Mild to moderate right atrial dilatation. Catheter/pacemaker wire in the right atrial cavity. Moderate to severe left atrial dilatation. Mechanical prosthetic mitral valve noted, bileaflet tilting disk type. Gradient recorded across the prosthetic mitral valve within the expected range. No mitral regurgitation. Mild aortic stenosis. Trace to mild aortic regurgitation. Mild to moderate tricuspid regurgitation. Moderate to severe pulmonary hypertension. No pulmonic regurgitation. Dilated IVC. Exam & Diagnostic Data Vital Signs and I&O Vital Signs Date Time Temp Pulse Resp B/P Pulse O2 O2 Flow FiO2 Ox Delivery Rate 12/17 1600 Nasal 3.0L Cannula 12/17 1420 Nasal 3.0L Cannula 12/17 1408 98 Nasal 3.0L Cannula 12/17 1352 98.0 69 20 130/80 97 Nasal 3.0L Cannula 12/17 1317 Nasal 3.0L Cannula 12/17 1236 98.1 76 18 152/72 98 Nasal 3.0L Cannula 12/17 1048 98.3 71 20 160/73 99 Nasal 3.0L Cannula 12/17 0945 95 Nasal 3.0L Cannula 12/17 0906 97.2 77 20 143/74 100 Nasal 4.0L Cannula Intake & Output 12/17 0812/17 0000 12/16 1600 12/16 0812/16 0000 Intake Total 300 Output Total Balance 300 Intake, Oral 300 Patient 165 lb Weight Physical Exam: Well-developed, pale-appearing female in no acute distress with nasal oxygen in place. Vital signs: See above. Lungs: Decreased breath sounds otherwise clear. Heart: S1, S2 appropriate mechanical valve sounds great 2/6 systolic murmur. Abdomen: Soft, nontender, positive bowel sounds. Extremities: 1+ edema. Labs/Thien Results: Laboratory Tests 12/17 929 Chemistry Sodium (137 - 145 mmol/L) 137 Potassium (3.5 - 5.1 mmol/L) 5.3 H Chloride (98 - 107 mmol/L) 100 Carbon Dioxide (22 - 30 mmol/L) 23 Anion Gap (5 - 16) 15 BUN (7 - 17 mg/dL) 72 H Creatinine (0.5 - 1.0 mg/dL) 4.7 H Estimated GFR (>60 ml/min) 9 L BUN/Creatinine Ratio (7 - 25 %) 15.3 Glucose (65 - 99 mg/dL) 114 H Calcium (8.4 - 10.2 mg/dL) 8.5 Total Bilirubin (0.2 - 1.3 mg/dL) 0.6 AST (14 - 36 U/L) 10 L ALT (9 - 52 U/L) 26 Alkaline Phosphatase (<127 U/L) 84 Total Protein (6.3 - 8.2 g/dL) 6.2 L Albumin (3.5 - 5.0 g/dL) 3.8 Globulin (1.9 - 4.2 gm/dL) 2.4 Albumin/Globulin Ratio (1.1 - 2.2 %) 1.6 Coagulation PT (9.4 - 12.5 SEC) 44.4 *H INR (0.90 - 1.19) 4.29 *H APTT (25 - 37 SEC) 33 Hematology CBC w Diff MAN DIFF ORDERED WBC (4.8 - 10.8 /CUMM) 13.4 H RBC (4.20 - 5.40 /CUMM) 3.76 L Hgb (12.0 - 16.0 G/DL) 11.4 L Hct (37 - 47 %) 35.7 L MCV (81.0 - 99.0 FL) 94.9 MCH (27.0 - 31.0 PG) 30.4 RDW (11.5 - 14.5 %) 15.0 H Plt Count (130 - 400 /CUMM) 249 MPV (7.4 - 10.4 FL) 8.3 Gran % (42.2 - 75.2 %) 94.7 H Lymphocytes % (20.5 - 51.1 %) 3.3 L Monocytes % (1.7 - 9.3 %) 2.0 Eosinophils % (0 - 5 %) 0 Basophils % (0.0 - 2.0 %) 0 L Absolute Granulocytes (1.4 - 6.5 /CUMM) 12.7 H Absolute Lymphocytes (1.2 - 3.4 /CUMM) 0.4 L Absolute Monocytes (0.10 - 0.60 /CUMM) 0.3 Absolute Eosinophils (0.0 - 0.7 /CUMM) 0 Absolute Basophils (0.0 - 0.2 /CUMM) 0 Platelet Estimate (ADEQUATE) VERIFIED BY SMEAR Anisocytosis 1+ PUBS MCHC (33.0 - 37.0 G/DL) 32.0 L Diagnostic Data EKG Results (12/17/2016) properly functioning electronic pacemaker with ventricular paced complexes and underlying atrial fibrillation. No significant change when compared to previous tracing (11/26/2016). CXR Results (12/17/2016) Left-sided pacemaker lead tips overlie the right ventricle and coronary sinus. Lung volumes are symmetric. No acute consolidation is seen. No evidence of pneumothorax, significant pleural effusion, or pulmonary edema. Calcific densities along the posterior right pleura are not as well-seen as on recent CT. The cardiac silhouette remains prominent. No acute osseous findings are seen. IMPRESSION: No acute cardiopulmonary findings. Other Results Left hip, left knee x-ray (12/17/2016) 1. Left hip: Mildly displaced intertrochanteric fracture of the left femur. 2. Left knee: No acute findings. Assessment/Plan Assessment/Plan Mrs. Freeman is a 66-year-old female with multiple medical problems as outlined above who is in need of orthopedic surgery for a left hip fracture sustained during a mechanical fall with a past medical history pertinent for a mechanical mitral valve prosthesis placed in February 1996, chronic atrial fibrillation with difficult to control ventricular response rates that led to placement of a biventricular pacemaker following AV node ablation, and chronic anticoagulation therapy on warfarin with goal INR 3.0 (range 2.5-3.5), and multifactorial anemia. Recommendations: * Given the above, she is a high risk patient for the discontinuation of anticoagulation and, as such, should be considered for bridging anticoagulation. * Her INR on warfarin anticoagulation was supratherapeutic at 4.29 and, if possible, would like to have her INR trend down to the 2.0 range and then start her on IV heparin with a goal an aPTT of 1.5-2 x control. * The IV heparin can then be discontinued 4-6 hours prior to surgery. * If surgery feels they need to intervene more quickly, reversal of anticoagulation can be accomplished by the administration of fresh frozen plasma (FFP). In addition, we could employ the use of low-dose (1.0-2.0 mg) oral vitamin K, which has a slower onset of action, but a longer half life than the effects of FFP. Naturally, the decision to use reversal agents dependent upon the urgency of the surgery and the thrombotic and bleeding risks. * Would then leave it up to surgery to determine when they felt the IV heparin and warfarin can be restarted. After the IV heparin is restarted would discontinue it once the INR has been in the therapeutic range (2.5-3.5) for 2 consecutive days. * During bridging would favor giving aspirin 81 mg daily if no contraindication. Naturally, need to check all stool for occult blood. * Follow-up her potassium level later today and treat as necessary. * Check free T4, TSH, glycosylated hemoglobin A1c, magnesium, etc. * Consider endocrine consultation. * DVT prophylaxis. Further recommendations will follow, Thank you. As far as her pacemaker is concerned, would place a magnet over the device intraoperatively, if there are concerns that cautery would be too close to the pacemaker generator. At the end of the surgery the magnet can be removed and the pacemaker will revert back to its previously programmed state. Consult Acknowledgment - Thank you for your consult request.
[2016-12-17 23:19] VITALS: BP 158/70
--- NOTE | 2016-12-17 23:55 | NUR ---
PT CAME BACK FROM DIALYSIS AT 2315. A/O X3. ON 3L O2 NC. C/O PAIN IN L HIP. MORPHINE ADMINISTERED. ANABELL AV FISTULA SITE WAS BLEEDING AFTER RETURNING FROM DIALYSIS. BANDAIDS CHANGED. BLEEDING STOPPED. FIRST AID DIRECTOR MACIEJ MCNEIL UPDATED. PT REFUSED TO TAKE BEDTIME NORVASC STATING IT WAS ON HOLD AND WAS NOT UPDATED THAT IT WILL BE STARTED AGAIN. FIRST AID DIRECTOR MACIEJ CALLED TO TALK TO THE PT. PT REFUSED TO TAKE THE MED. VS WILL BE CHECKED AGAIN IN 2 HRS AND FIRST AID DIRECTOR WILL BE UPDATED. WILL CONTINUE TO MONITOR.
[2016-12-18 02:07] VITALS: BP 138/64
[2016-12-18 06:30] VITALS: BP 146/70
--- NOTE | 2016-12-18 08:09 | PN- Housestaff ---
Subjective Follow-up For: left Intertrochanteric fracture Complaints: pain scale (0-10) Subjective: I saw and examined the patient today morning, she is feeling terrible, reports 10/10 thrombing pain. Reports dilaudid helps her more than morphine. Overnight received single dose of dilaudid in addition to morphine 1mg IV Q6 and Oxycodon 15mg Q6. Received a total of 3 doses of oxycodon 15mg tab, 5mg of morophine IV and 2 doses of 0.5 and 0.4mg dilaudid since admission. Review of Systems Constitutional: Reports: see HPI, malaise, weakness. Musculoskeletal: Reports: joint pain, joint swelling. Comments: ROS negative except the above. Objective Last 24 Hrs of Vital Signs/I&O Vital Signs Date Time Temp Pulse Resp B/P Pulse O2 O2 Flow FiO2 Ox Delivery Rate 12/18 0630 98.2 73 20 146/70 95 Nasal 3.0L Cannula 12/18 0207 98.1 70 20 138/64 98 Nasal Cannula 12/18 0030 70 138/64 12/18 0000 Nasal 3.0L Cannula 12/17 2319 98.0 71 22 158/70 98 Nasal Cannula 12/17 2035 96 Nasal 3.0L Cannula 12/17 1600 Nasal 3.0L Cannula 12/17 1420 Nasal 3.0L Cannula 12/17 1408 98 Nasal 3.0L Cannula 12/17 1352 98.0 69 20 130/80 97 Nasal 3.0L Cannula 12/17 1317 Nasal 3.0L Cannula 12/17 1236 98.1 76 18 152/72 98 Nasal 3.0L Cannula 12/17 1048 98.3 71 20 160/73 99 Nasal 3.0L Cannula 12/17 0945 95 Nasal 3.0L Cannula 12/17 0906 97.2 77 20 143/74 100 Nasal 4.0L Cannula Intake & Output 12/18 1600 12/18 0800 12/18 0000 Intake Total 120 70 Output Total 100 Balance 20 70 Intake, IV 20 20 Intake, Oral 100 50 Output, Urine 100 Patient 75.41 kg 78.075 kg Weight Physical Exam General Appearance: Alert, Oriented X3, Cooperative Skin: No Rashes, No Breakdown HEENT: Atraumatic, PERRLA Neck: Supple Cardiovascular: Normal S1, Normal S2 Lungs: Clear to Auscultation, diffuse expiratory wheezing present Abdomen: Normal Bowel Sounds, Soft, No Tenderness Neurological: Normal Speech, Normal Tone, Sensation Intact Extremities: No Clubbing, No Cyanosis Current Medications: Current Medications Sig/Tripp Start time Last Medication Dose Route Stop Time Status Admin Acetaminophen 650 MG Q6P PRN 12/17 1145 AC PO Acetaminophen 1,000 MG Q6P PRN 12/17 1145 DC 12/17 IV 1528 Albuterol Sulfate 3 ML EVERY 4 HRS/AWAKE 12/17 1600 AC 12/17 INH 1903 Albuterol Sulfate 2 PUF Q4-6 PRN PRN 12/17 1400 AC INH Amlodipine Besylate 10 MG AT BEDTIME 12/17 220 AC PO Bisacodyl 5 MG DAILY NEEDED PRN 12/18 0245 DC PO Budesonide/ 2 PUF BID 12/17 2200 AC 12/17 Formoterol Fumarate INH 2348 Cholecalciferol 1,000 IU DAILY 12/18 1000 AC PO Diltiazem HCl 120 MG DAILY 12/17 1224 AC 12/17 PO 1523 Epoetin Jerson 4,000 UNIT MoWeFr 12/17 2000 AC IV Furosemide 40 MG 7:30 AM, & 4:30 PM 12/17 1630 AC 12/18 PO 0614 Hydromorphone HCl 0.4 MG ONCE ONE 12/18 0345 DC 12/18 IV 12/18 0346 0334 Hydromorphone HCl 0 .STK-MED ONE 12/17 1054 DC .ROUTE Hydromorphone HCl 0.5 MG ONCE ONE 12/17 1045 DC 12/17 IV 12/17 1046 1100 Lorazepam 2 MG QPM 12/17 2200 AC 12/17 PO 2347 Magnesium Hydroxide 30 ML ONE ONE 12/18 0330 DC PO 12/18 0331 Morphine Sulfate 1 MG Q6P PRN 12/17 1600 AC 12/18 IV 0610 Morphine Sulfate 1 MG ONCE ONE 12/17 1515 DC 12/17 IV 12/17 1516 1557 Morphine Sulfate 2 MG Q4P PRN 12/17 1145 DC 12/17 IV 1327 Morphine Sulfate 3 MG ONCE ONE 12/17 0945 DC 12/17 IV 12/17 0946 0943 Morphine Sulfate 0 .STK-MED ONE 12/17 0941 DC .ROUTE Multivitamins 1 TAB DAILY 12/18 1000 AC PO Oxycodone HCl 15 MG Q6 PRN 12/17 1545 AC 12/18 PO 0105 Paricalcitol 2 MCG MoWeFr 12/17 2000 AC IV Prednisone 10 MG DAILY 12/18 1000 AC PO 12/22 1100 Prednisone 10 MG .[DIRECTED] 12/17 1400 DC PO Sertraline HCl 100 MG DAILY 12/18 1000 AC PO Sevelamer HCl 2,400 MG TIDAC 12/17 1200 AC 12/17 PO 1809 Tiotropium [place] 1 PUF DAILY 12/18 1000 AC INH Last 24 Hrs of Lab/Thien Results Last 24 Hrs of Labs/Mics: Laboratory Tests 12/17/16 2300: Anion Gap 12, Estimated GFR 21 L, BUN/Creatinine Ratio 11.7 12/17/16 0930: Hemoglobin A1c Pending 12/17/16929: Anion Gap 15, Estimated GFR 9 L, BUN/Creatinine Ratio 15.3, Glucose 114 H, Calcium 8.5, Magnesium 1.4 L, Total Bilirubin 0.6, AST 10 L, ALT 26, Alkaline Phosphatase 84, Total Protein 6.2 L, Albumin 3.8, Globulin 2.4, Albumin/ Globulin Ratio 1.6, TSH 0.974, Thyroxine (T4) 2.8 L, PT 44.4 *H, INR 4.29 *H, APTT 33, CBC w Diff MAN DIFF ORDERED, RBC 3.76 L, MCV 94.9, MCH 30.4, RDW 15.0 H, MPV 8.3, Gran % 94.7 H, Lymphocytes % 3.3 L, Monocytes % 2.0, Eosinophils % 0, Basophils % 0 L, Absolute Granulocytes 12.7 H, Absolute Lymphocytes 0.4 L, Absolute Monocytes 0.3, Absolute Eosinophils 0, Absolute Basophils 0, Platelet Estimate VERIFIED BY SMEAR, Anisocytosis 1+, PUBS MCHC 32.0 L Lines/Diet/Fluids Lines: peripheral lines Assessment/Plan Assessment: 66 years old F with PMH of COPD on home oxygen, hypertension, mitral valve stenosis S/P replacement 1995, A. fib on warfarin, CHF, hypertension who presented after sustaining a mechanical fall and having evidence of intertrochanteric fracture with mild displacement. Will go for surgical hip repair. Patient has ESRD on HD, fluid overloaded at presentation. At admission - white count of 15.2 with potassium of 5.3/Cr 4.7, INR 4.29 Imaging Left hip X ray IMPRESSION: 1. Left hip: Mildly displaced intertrochanteric fracture of the left femur. 2. Left knee: No acute findings. Admitted to general medicine floor Problem list Left mildly displaced intertrochanteric fracture Need surgical repair. Unfortunately she had INR of 4.29 at presentation requiring drift down to <1.5 for surgery. She had a very complicated and extensive cardiac history to reverse her INR. Currently we are awating to drop INR <1.5. NPO from midnight. Ortho following. Pain control with Hydromorphine 1mg Q6 and oxycodone 15mg Q6. Once INR is around 2.0 consider starting IV heparin and stop it 4-6hrs prior to surgery. End-stage renal disease on hemodialysis Her K is 5.3 with Cr 4.7 at presentation. Underwent hemodialysis with epo 4000 units IV, Zemplar 2mcg IV. On 2gm sodium & potassium diet. On sevelamer 2400mg with meals. Her Cr post dialysis is 2.3. Nephro following appreciate their recommendations. Permanent Atrial Fibrillation History of paroxysmal followed by permanent A.Fib with RVR , leading to AV node ablation (Aug 2010) and placement of Biventricular pacemaker placement complicated by splenic hematoma. Congestive Heart failure * Last ECHO was on 06/04/2015 showing concentric LVH with mild dilatation. EF - 50-55% Prosthetic mitral valves * History of Rheumatic heart disease with Mitral Stenosis S/P Mechanical valve replacement in february 1996. * Requires anticoagulation with goal INR of 2-3. COPD on home oxygen * Chronic and stable. * History of recurrent exacerbations complicated with spontaneous pneumothorax. * Currently on 3L oxygen. On chronic steroid therapy with prednisone 10mg. TRC and nebs Depression/Anxiety * Her home medications Sertraline 100mg, Ativan 2mg are continued. Hypertension * Her home medication Amlodipine 10mg is continued. DVT prophylaxis * Supratherapeutic INR Code Status * DNR/DNI Problem List: 1. COPD 2. Paroxysmal atrial fibrillation 3. INR (international normal ratio) abnormal 4. Weakness 5. Hip fracture 6. Closed left hip fracture Pain Ratin Pain Location: left hip Pain Goal: Pain 4 or less Pain Plan: Oxycodon 15mg Q6 and Dilaudid 1mg Q6 Tomorrow's Labs & Rationales: cbc for monitoring H&H in the setting of fracture bep to monitor renal function in the setting of ESRD
[2016-12-18 08:43] LABS: ABSOLUTE BASOPHIL COUNT 0 /CUMM (0.0-0.2); ABSOLUTE EOSINOPHIL COUNT 0.1 /CUMM (0.0-0.7); ABSOLUTE GRANULOCYTE CT 13.2 /CUMM (1.4-6.5); ABSOLUTE LYMPH COUNT 1.1 /CUMM (1.2-3.4); ABSOLUTE MONOCYTE COUNT 0.9 /CUMM (0.10-0.60); BASOPHIL % 0 % (0.0-2.0); EOSINOPHIL % 0.6 % (0-5); GRANULOCYTE % 86.4 % (42.2-75.2); HEMATOCRIT 34.5 % (37-47); MEAN CORPUSCULAR HGB 30.7 PG (27.0-31.0); MEAN CORPUSCULAR HGB CONC 32.1 G/DL (33.0-37.0); MEAN CORPUSCULAR VOLUME 95.7 FL (81.0-99.0); MEAN PLATELET VOLUME 8.3 FL (7.4-10.4); PLATELET COUNT 224 /CUMM (130-400); RBC DISTRIBUTION WIDTH 15.4 % (11.5-14.5); RED BLOOD CELL CT 3.61 /CUMM (4.20-5.40)
[2016-12-18 08:53] LABS: PT 26.3 SEC (9.4-12.5)
--- NOTE | 2016-12-18 08:56 | PN- Orthopedic ---
Subjective Subjective: NAEO. Patient without new c/o. Continues to have pain in her left hip. No numbness or tingling in LLE. Tolerating diet. Denies CP/SOB. Objective Vital Signs and I&Os Vital Signs Date Time Temp Pulse Resp B/P Pulse O2 O2 Flow FiO2 Ox Delivery Rate 12/18 0822 98 Nasal 3.0L Cannula 12/18 0630 98.2 73 20 146/70 95 Nasal 3.0L Cannula 12/18 0207 98.1 70 20 138/64 98 Nasal Cannula 12/18 0030 70 138/64 12/18 0000 Nasal 3.0L Cannula 12/17 2319 98.0 71 22 158/70 98 Nasal Cannula 12/17 2035 96 Nasal 3.0L Cannula 12/17 1600 Nasal 3.0L Cannula 12/17 1420 Nasal 3.0L Cannula 12/17 1408 98 Nasal 3.0L Cannula 12/17 1352 98.0 69 20 130/80 97 Nasal 3.0L Cannula 12/17 1317 Nasal 3.0L Cannula 12/17 1236 98.1 76 18 152/72 98 Nasal 3.0L Cannula 12/17 1048 98.3 71 20 160/73 99 Nasal 3.0L Cannula 12/17 0945 95 Nasal 3.0L Cannula 12/17 0906 97.2 77 20 143/74 100 Nasal 4.0L Cannula Intake & Output 12/18 1600 12/18 0800 12/18 0000 12/17 1600 12/17 0800 12/17 0000 Intake Total 120 70 300 Output Total 100 Balance 20 70 300 Intake, IV 20 20 Intake, Oral 100 50 300 Output, Urine 100 Patient 166 lb 172 lb 165 lb Weight Physical Exam: General: NAD, comfortable, A&Ox3 Chest: CTAB, no wheezes, no rales. Heart S1S2 normal. Abdomen: soft, nontender, nondistended. +Bowel sounds x4 quadrants Ext: LLE with loss of height and external rotation. Left hip swelling and TTP. No calve swelling/TTP, neurovascularly intact bilateral lower extremities Current Medications: Current Medications Sig/Tripp Start time Last Medication Dose Route Stop Time Status Admin Acetaminophen 650 MG Q6P PRN 12/17 1145 AC PO Acetaminophen 1,000 MG Q6P PRN 12/17 1145 DC 12/17 IV 1528 Albuterol Sulfate 3 ML EVERY 4 HRS/AWAKE 12/17 1600 AC 12/18 INH 0819 Albuterol Sulfate 2 PUF Q4-6 PRN PRN 12/17 1400 AC INH Amlodipine Besylate 10 MG AT BEDTIME 12/17 2200 AC PO Bisacodyl 5 MG DAILY NEEDED PRN 12/18 0245 DC PO Budesonide/ 2 PUF BID 12/17 2200 AC 12/17 Formoterol Fumarate INH 2348 Cholecalciferol 1,000 IU DAILY 12/18 1000 AC PO Diltiazem HCl 120 MG DAILY 12/17 1224 AC 12/17 PO 1523 Epoetin [place] 4,000 UNIT MoWeFr 12/17 1999 AC IV Furosemide 40 MG 7:30 AM, & 4:30 PM 12/17 1630 AC 12/18 PO 0614 Hydromorphone HCl 0.4 MG ONCE ONE 12/18 0345 DC 12/18 IV 12/18 0346 0334 Hydromorphone HCl 0 .STK-MED ONE 12/17 1054 DC .ROUTE Hydromorphone HCl 0.5 MG ONCE ONE 12/17 1045 DC 12/17 IV 12/17 1046 1100 Lorazepam 2 MG QPM 12/17 2200 AC 12/17 PO 2347 Magnesium Hydroxide 30 ML ONE ONE 12/18 0330 DC PO 12/18 0331 Morphine Sulfate 1 MG Q6P PRN 12/17 1600 AC 12/18 IV 0610 Morphine Sulfate 1 MG ONCE ONE 12/17 1515 DC 12/17 IV 12/17 1516 1557 Morphine Sulfate 2 MG Q4P PRN 12/17 1145 DC 12/17 IV 1327 Morphine Sulfate 3 MG ONCE ONE 12/17 0945 DC 12/17 IV 12/17 0946 0943 Morphine Sulfate 0 .STK-MED ONE 12/17 0941 DC .ROUTE Multivitamins 1 TAB DAILY 12/18 1000 AC PO Oxycodone HCl 15 MG Q6 PRN 12/17 1545 AC 12/18 PO 0105 Paricalcitol 2 MCG MoWeFr 12/17 2000 AC IV Prednisone 10 MG DAILY 12/18 1000 AC PO 12/22 1100 Prednisone 10 MG .[DIRECTED] 12/17 1400 DC PO Sertraline HCl 100 MG DAILY 12/18 1000 AC PO Sevelamer HCl 2,400 MG TIDAC 12/17 1200 AC 12/17 PO 1809 Tiotropium [place] 1 PUF DAILY 12/18 1000 AC INH Results Last 48 Hours of Labs: Laboratory Tests 12/18 12/17 12/17 0625 2300 0930 Chemistry Sodium (137 - 145 mmol/L) Pending 139 Potassium (3.5 - 5.1 mmol/L) Pending 3.8 Chloride (98 - 107 mmol/L) Pending 101 Carbon Dioxide (22 - 30 mmol/L) Pending 26 Anion Gap (5 - 16) Pending 12 BUN (7 - 17 mg/dL) Pending 27 H Creatinine (0.5 - 1.0 mg/dL) Pending 2.3 H Estimated GFR (>60 ml/min) 21 L BUN/Creatinine Ratio (7 - 25 %) Pending 11.7 Hemoglobin A1c Pending Coagulation PT Pending INR Pending Hematology CBC w Diff Pending WBC Pending RBC Pending Hgb Pending Hct Pending MCV Pending MCH Pending RDW Pending Plt Count Pending MPV Pending PUBS MCHC Pending 12/17 0930 Chemistry Sodium (137 - 145 mmol/L) 137 Potassium (3.5 - 5.1 mmol/L) 5.3 H Chloride (98 - 107 mmol/L) 100 Carbon Dioxide (22 - 30 mmol/L) 23 Anion Gap (5 - 16) 15 BUN (7 - 17 mg/dL) 72 H Creatinine (0.5 - 1.0 mg/dL) 4.7 H Estimated GFR (>60 ml/min) 9 L BUN/Creatinine Ratio (7 - 25 %) 15.3 Glucose (65 - 99 mg/dL) 114 H Calcium (8.4 - 10.2 mg/dL) 8.5 Magnesium (1.6 - 2.3 mg/dL) 1.4 L Total Bilirubin (0.2 - 1.3 mg/dL) 0.6 AST (14 - 36 U/L) 10 L ALT (9 - 52 U/L) 26 Alkaline Phosphatase (<127 U/L) 84 Total Protein (6.3 - 8.2 g/dL) 6.2 L Albumin (3.5 - 5.0 g/dL) 3.8 Globulin (1.9 - 4.2 gm/dL) 2.4 Albumin/Globulin Ratio (1.1 - 2.2 %) 1.6 TSH (0.270 - 4.200 uIU/mL) 0.974 Thyroxine (T4) (4.5 - 10.9 ug/dL) 2.8 L Coagulation PT (9.4 - 12.5 SEC) 44.4 *H INR (0.90 - 1.19) 4.29 *H APTT (25 - 37 SEC) 33 Hematology CBC w Diff MAN DIFF ORDERED WBC (4.8 - 10.8 /CUMM) 13.4 H RBC (4.20 - 5.40 /CUMM) 3.76 L Hgb (12.0 - 16.0 G/DL) 11.4 L Hct (37 - 47 %) 35.7 L MCV (81.0 - 99.0 FL) 94.9 MCH (27.0 - 31.0 PG) 30.4 RDW (11.5 - 14.5 %) 15.0 H Plt Count (130 - 400 /CUMM) 249 MPV (7.4 - 10.4 FL) 8.3 Gran % (42.2 - 75.2 %) 94.7 H Lymphocytes % (20.5 - 51.1 %) 3.3 L Monocytes % (1.7 - 9.3 %) 2.0 Eosinophils % (0 - 5 %) 0 Basophils % (0.0 - 2.0 %) 0 L Absolute Granulocytes (1.4 - 6.5 /CUMM) 12.7 H Absolute Lymphocytes (1.2 - 3.4 /CUMM) 0.4 L Absolute Monocytes (0.10 - 0.60 /CUMM) 0.3 Absolute Eosinophils (0.0 - 0.7 /CUMM) 0 Absolute Basophils (0.0 - 0.2 /CUMM) 0 Platelet Estimate (ADEQUATE) VERIFIED BY SMEAR Anisocytosis 1+ PUBS MCHC (33.0 - 37.0 G/DL) 32.0 L Assessment/Plan Assessment/Plan 66yo F with left hip fracture. Awaiting for INR to trend down with goal <1.5. - Pain control - NWB LLE - I/O's - Plan for OR with INR <1.5 - NPO after midnight - Will d/w attending
[2016-12-18 10:18] LABS: WHITE BLOOD CELL COUNT 15.2 /CUMM (4.8-10.8)
--- NOTE | 2016-12-18 12:59 | PN- Att Addend ---
Attending Addendum Attending Brief Note Patient complains of pain not well controlled General Appearance: Alert, No Acute Distress Skin: Grossly normal HEENT: PEERLA Neck: Supple, No JVD Cardiovascular: Regular Rate, Normal S1, Normal S2, No Murmurs Lungs: Clear to Auscultation, Normal Air Movement Abdomen: Normal Bowel Sounds, Soft, No Tenderness Neurological: Normal Speech, Strength at 5/5 X4 Ext, Cranial Nerves 3-12 NL, Reflexes 2+ Extremities: Left hip tenderness Vascular: Normal Pulses Assessment Left hip fracture status post fall awaiting surgical repair. Unfortunately INR supratherapeutic for surgery. At this time we are waiting for INR to trend down less than 1.5. Plan Start Dilaudid 1 mg every 6 hours when necessary for severe pain Discontinue morphine Monitor INR daily Continue other home meds DNI/DNR Current Medications Sig/Tripp Start time Last Medication Dose Route Stop Time Status Admin Acetaminophen 650 MG Q6P PRN 12/17 1145 AC PO Acetaminophen 1,000 MG Q6P PRN 12/17 1145 DC 12/17 IV 1528 Albuterol Sulfate 3 ML EVERY 4 HRS/AWAKE 12/17 1600 AC 12/18 INH 0819 Albuterol Sulfate 2 PUF Q4-6 PRN PRN 12/17 1400 AC INH Amlodipine Besylate 10 MG AT BEDTIME 12/17 220 AC PO Bisacodyl 5 MG DAILY NEEDED PRN 12/18 0245 DC PO Budesonide/ 2 PUF BID 12/17 2200 AC 12/18 Formoterol Fumarate INH 1230 Cholecalciferol 1,000 IU DAILY 12/18 1000 AC 12/18 PO 0859 Diltiazem HCl 120 MG DAILY 12/17 1224 AC 12/18 PO 1230 Epoetin [place] 4,000 UNIT MoWeFr 12/17 2000 AC IV Furosemide 40 MG 7:30 AM, & 4:30 PM 12/17 1630 AC 12/18 PO 0614 Hydromorphone HCl 0.5 MG Q6P PRN 12/18 1230 AC IV Hydromorphone HCl 0.4 MG ONCE ONE 12/18 0345 DC 12/18 IV 12/18 0346 0334 Lorazepam 2 MG QPM 12/17 2200 AC 12/17 PO 2347 Magnesium Hydroxide 30 ML ONE ONE 12/18 0330 DC 12/18 PO 12/18 0331 0855 Morphine Sulfate 1 MG ONCE ONE 12/18 0915 DC IV 12/18 0916 Morphine Sulfate 1 MG Q6P PRN 12/17 1600 DC 12/18 IV 0903 Morphine Sulfate 1 MG ONCE ONE 12/17 1515 DC 12/17 IV 12/17 1516 1557 Morphine Sulfate 2 MG Q4P PRN 12/17 1145 DC 12/17 IV 1327 Multivitamins 1 TAB DAILY 12/18 1000 AC 12/18 PO 1230 Oxycodone HCl 15 MG Q6 PRN 12/17 1545 AC 12/18 PO 0853 Paricalcitol 2 MCG MoWeFr 12/17 2000 AC IV Prednisone 10 MG DAILY 12/18 1000 AC 12/18 PO 12/22 1100 0858 Prednisone 10 MG .[DIRECTED] 12/17 1400 DC PO Sertraline HCl 100 MG DAILY 12/18 1000 AC 12/18 PO 0859 Sevelamer HCl 2,400 MG TIDAC 12/17 1200 AC 12/18 PO 1229 Tiotropium [place] 1 PUF DAILY 12/18 1000 AC 12/18 INH 0857 Laboratory Tests 12/18 12/17 0625 2300 Chemistry Sodium (137 - 145 mmol/L) 139 139 Potassium (3.5 - 5.1 mmol/L) 4.2 3.8 Chloride (98 - 107 mmol/L) 101 101 Carbon Dioxide (22 - 30 mmol/L) 26 26 Anion Gap (5 - 16) 12 12 BUN (7 - 17 mg/dL) 32 H 27 H Creatinine (0.5 - 1.0 mg/dL) 3.0 H 2.3 H Estimated GFR (>60 ml/min) 16 L 21 L BUN/Creatinine Ratio (7 - 25 %) 10.7 11.7 Coagulation PT (9.4 - 12.5 SEC) 26.3 H INR (0.90 - 1.19) 2.53 H Hematology CBC w Diff NO MAN DIFF REQ WBC (4.8 - 10.8 /CUMM) 15.2 H RBC (4.20 - 5.40 /CUMM) 3.61 L Hgb (12.0 - 16.0 G/DL) 11.1 L Hct (37 - 47 %) 34.5 L MCV (81.0 - 99.0 FL) 95.7 MCH (27.0 - 31.0 PG) 30.7 RDW (11.5 - 14.5 %) 15.4 H Plt Count (130 - 400 /CUMM) 224 MPV (7.4 - 10.4 FL) 8.3 Gran % (42.2 - 75.2 %) 86.4 H Lymphocytes % (20.5 - 51.1 %) 7.1 L Monocytes % (1.7 - 9.3 %) 5.9 Eosinophils % (0 - 5 %) 0.6 Basophils % (0.0 - 2.0 %) 0 L Absolute Granulocytes (1.4 - 6.5 /CUMM) 13.2 H Absolute Lymphocytes (1.2 - 3.4 /CUMM) 1.1 L Absolute Monocytes (0.10 - 0.60 /CUMM) 0.9 H Absolute Eosinophils (0.0 - 0.7 /CUMM) 0.1 Absolute Basophils (0.0 - 0.2 /CUMM) 0 PUBS MCHC (33.0 - 37.0 G/DL) 32.1 L Vital Signs Date Time Temp Pulse Resp B/P Pulse O2 O2 Flow FiO2 Ox Delivery Rate 12/18 0822 98 Nasal 3.0L Cannula 12/18 0800 95 Nasal 3.0L Cannula 12/18 0630 98.2 73 20 146/70 95 Nasal 3.0L Cannula 12/18 0207 98.1 70 20 138/64 98 Nasal Cannula 12/18 0030 70 138/64 12/18 0000 Nasal 3.0L Cannula 12/17 2319 98.0 71 22 158/70 98 Nasal Cannula 12/17 2035 96 Nasal 3.0L Cannula 12/17 1600 Nasal 3.0L Cannula 12/17 1420 Nasal 3.0L Cannula 12/17 1408 98 Nasal 3.0L Cannula 12/17 1352 98.0 69 20 130/80 97 Nasal 3.0L Cannula 12/17 1317 Nasal 3.0L Cannula
[2016-12-18 13:58] VITALS: BP 138/62
[2016-12-18 19:44] LABS: PT 19.4 SEC (9.4-12.5)
[2016-12-19 06:02] LABS: ABSOLUTE BASOPHIL COUNT 0.2 /CUMM (0.0-0.2); ABSOLUTE EOSINOPHIL COUNT 0.1 /CUMM (0.0-0.7); ABSOLUTE GRANULOCYTE CT 14.9 /CUMM (1.4-6.5); ABSOLUTE LYMPH COUNT 0.7 /CUMM (1.2-3.4); ABSOLUTE MONOCYTE COUNT 0.8 /CUMM (0.10-0.60); BASOPHIL % 1.4 % (0.0-2.0); EOSINOPHIL % 0.5 % (0-5); GRANULOCYTE % 88.9 % (42.2-75.2); HEMATOCRIT 32.3 % (37-47); MEAN CORPUSCULAR HGB 30.5 PG (27.0-31.0); MEAN CORPUSCULAR HGB CONC 32.3 G/DL (33.0-37.0); MEAN CORPUSCULAR VOLUME 94.4 FL (81.0-99.0); MEAN PLATELET VOLUME 8.1 FL (7.4-10.4); PLATELET COUNT 225 /CUMM (130-400); RBC DISTRIBUTION WIDTH 15.7 % (11.5-14.5); RED BLOOD CELL CT 3.42 /CUMM (4.20-5.40)
[2016-12-19 06:12] LABS: PT 16.9 SEC (9.4-12.5); PTT 42 SEC (25-37)
[2016-12-19 06:33] LABS: WHITE BLOOD CELL COUNT 16.7 /CUMM (4.8-10.8)
[2016-12-19 06:35] VITALS: BP 120/70
--- NOTE | 2016-12-19 07:57 | PN- Orthopedic ---
Subjective Subjective: No acute events overnight. Complains of pain to left hip. Denies numbness, tingling. NPO since midnight, understands she is scheduled for surgery today. Objective Vital Signs and I&Os Vital Signs Date Time Temp Pulse Resp B/P Pulse O2 O2 Flow FiO2 Ox Delivery Rate 12/19 0635 98.5 75 18 120/70 96 Nasal 3.0L Cannula 12/19 0000 Nasal 3.0L Cannula 12/18 2154 98.3 69 16 132/52 12/18 2114 95 Nasal 3.0L Cannula 12/18 1600 Nasal 3.0L Cannula 12/18 1358 97.7 72 20 138/62 96 12/18 0822 98 Nasal 3.0L Cannula 12/18 08 95 Nasal 3.0L Cannula Intake & Output 12/19 0812/19 0000 12/18 1600 12/18 0800 12/18 0000 12/17 1600 Intake Total 656 068 4172 120 70 300 Output Total 340 100 Balance 968 700 3384 20 70 300 Intake, IV 208 20 20 Intake, Oral 480 1400 100 50 300 Number 1 2 Bowel Movements Output, Urine 340 100 Patient 170 lb 170 lb 166 lb 172 lb 165 lb Weight Physical Exam: General: NAD, comfortable, A&Ox3 Chest: Normal work of breathing Ext: LLE externally rotated. Left hip swelling and TTP. No calve swelling/TTP, sensation intact. 2+ DP pulse to LLE. Current Medications: Current Medications Sig/Tripp Start time Last Medication Dose Route Stop Time Status Admin Acetaminophen 650 MG Q6P PRN 12/17 1145 AC PO Albuterol Sulfate 3 ML EVERY 4 HRS/AWAKE 12/17 1600 AC 12/18 INH 2112 Albuterol Sulfate 2 PUF Q4-6 PRN PRN 12/17 1400 AC INH Amlodipine Besylate 10 MG AT BEDTIME 12/17 2199 AC 12/18 PO 2154 Bisacodyl 5 MG AT BEDTIME 12/18 2199 AC 12/18 PO 2154 Budesonide/ 2 PUF BID 12/17 2199 AC 12/18 Formoterol Fumarate INH 2153 Cholecalciferol 1,000 IU DAILY 12/18 1000 AC 12/18 PO 0859 Diltiazem HCl 120 MG DAILY 12/17 1224 AC 12/18 PO 1230 Epoetin [place] 4,000 UNIT MoWeFr 12/17 1999 AC IV Furosemide 40 MG 7:30 AM, & 4:30 PM 12/17 1630 AC 12/18 PO 1633 Heparin Sodium 5,800 UNIT ONCE ONE 12/19 0745 DC (Porcine) IV 12/19 0746 Heparin Sodium/ 25,000 UNIT Q24H 12/18 2300 AC 12/19 Dextrose IV 0011 Dextrose/Water 500 ML Hydromorphone HCl 1 MG Q6P PRN 12/18 1445 AC 12/19 IV 0407 Hydromorphone HCl 0.5 MG Q6P PRN 12/18 1230 DC IV Lorazepam 2 MG QPM 12/17 2200 AC 12/18 PO 2154 Morphine Sulfate 1 MG ONCE ONE 12/18 0915 DC IV 12/18 0916 Morphine Sulfate 1 MG Q6P PRN 12/17 1600 DC 12/18 IV 0903 Multivitamins 1 TAB DAILY 12/18 1000 AC 12/18 PO 1230 Oxycodone HCl 15 MG Q6 PRN 12/17 1545 AC 12/18 PO 1830 Paricalcitol 2 MCG MoWeFr 12/17 1999 AC IV Polyethylene Glycol 17 GM DAILY 12/18 2115 AC 12/18 PO 2222 Prednisone 10 MG DAILY 12/18 1000 AC 12/18 PO 03 1100 0858 Senna 187 MG AT BEDTIME 12/18 2200 AC 12/18 PO 2222 Sertraline HCl 100 MG DAILY 12/18 1000 AC 12/18 PO 0859 Sevelamer HCl 2,400 MG TIDAC 12/17 1200 AC 12/18 PO 1637 Tiotropium [place] 1 PUF DAILY 12/18 1000 AC 12/18 INH 0857 Results Last 48 Hours of Labs: Laboratory Tests 12/19 12/18 12/18 0555 1855 1842 Chemistry Sodium (137 - 145 mmol/L) 136 L Potassium (3.5 - 5.1 mmol/L) 4.6 Chloride (98 - 107 mmol/L) 103 Carbon Dioxide (22 - 30 mmol/L) 21 L Anion Gap (5 - 16) 12 BUN (7 - 17 mg/dL) 51 H Creatinine (0.5 - 1.0 mg/dL) 4.2 H Estimated GFR (>60 ml/min) 11 L BUN/Creatinine Ratio (7 - 25 %) 12.1 Coagulation PT (9.4 - 12.5 SEC) 16.9 H 19.4 H Cancelled INR (0.90 - 1.19) 1.62 H 1.86 H Cancelled APTT (25 - 37 SEC) 42 H Hematology CBC w Diff NO MAN DIFF REQ WBC (4.8 - 10.8 /CUMM) 16.7 H RBC (4.20 - 5.40 /CUMM) 3.42 L Hgb (12.0 - 16.0 G/DL) 10.4 L Hct (37 - 47 %) 32.3 L MCV (81.0 - 99.0 FL) 94.4 MCH (27.0 - 31.0 PG) 30.5 RDW (11.5 - 14.5 %) 15.7 H Plt Count (130 - 400 /CUMM) 225 MPV (7.4 - 10.4 FL) 8.1 Gran % (42.2 - 75.2 %) 88.9 H Lymphocytes % (20.5 - 51.1 %) 4.3 L Monocytes % (1.7 - 9.3 %) 4.9 Eosinophils % (0 - 5 %) 0.5 Basophils % (0.0 - 2.0 %) 1.4 Absolute Granulocytes (1.4 - 6.5 /CUMM) 14.9 H Absolute Lymphocytes (1.2 - 3.4 /CUMM) 0.7 L Absolute Monocytes (0.10 - 0.60 /CUMM) 0.8 H Absolute Eosinophils (0.0 - 0.7 /CUMM) 0.1 Absolute Basophils (0.0 - 0.2 /CUMM) 0.2 PUBS MCHC (33.0 - 37.0 G/DL) 32.3 L 12/18 12/18 12/18 1830 1810 0625 Chemistry Sodium (137 - 145 mmol/L) 139 Potassium (3.5 - 5.1 mmol/L) 4.2 Chloride (98 - 107 mmol/L) 101 Carbon Dioxide (22 - 30 mmol/L) 26 Anion Gap (5 - 16) 12 BUN (7 - 17 mg/dL) 32 H Creatinine (0.5 - 1.0 mg/dL) 3.0 H Estimated GFR (>60 ml/min) 16 L BUN/Creatinine Ratio (7 - 25 %) 10.7 Coagulation PT (9.4 - 12.5 SEC) Cancelled Cancelled 26.3 H INR (0.90 - 1.19) Cancelled Cancelled 2.53 H Hematology CBC w Diff NO MAN DIFF REQ WBC (4.8 - 10.8 /CUMM) 15.2 H RBC (4.20 - 5.40 /CUMM) 3.61 L Hgb (12.0 - 16.0 G/DL) 11.1 L Hct (37 - 47 %) 34.5 L MCV (81.0 - 99.0 FL) 95.7 MCH (27.0 - 31.0 PG) 30.7 RDW (11.5 - 14.5 %) 15.4 H Plt Count (130 - 400 /CUMM) 224 MPV (7.4 - 10.4 FL) 8.3 Gran % (42.2 - 75.2 %) 86.4 H Lymphocytes % (20.5 - 51.1 %) 7.1 L Monocytes % (1.7 - 9.3 %) 5.9 Eosinophils % (0 - 5 %) 0.6 Basophils % (0.0 - 2.0 %) 0 L Absolute Granulocytes (1.4 - 6.5 /CUMM) 13.2 H Absolute Lymphocytes (1.2 - 3.4 /CUMM) 1.1 L Absolute Monocytes (0.10 - 0.60 /CUMM) 0.9 H Absolute Eosinophils (0.0 - 0.7 /CUMM) 0.1 Absolute Basophils (0.0 - 0.2 /CUMM) 0 PUBS MCHC (33.0 - 37.0 G/DL) 32.1 L 12/17 12/17 12/17 2300 1111 0930 Chemistry Sodium (137 - 145 mmol/L) 139 Potassium (3.5 - 5.1 mmol/L) 3.8 Chloride (98 - 107 mmol/L) 101 Carbon Dioxide (22 - 30 mmol/L) 26 Anion Gap (5 - 16) 12 BUN (7 - 17 mg/dL) 27 H Creatinine (0.5 - 1.0 mg/dL) 2.3 H Estimated GFR (>60 ml/min) 21 L BUN/Creatinine Ratio (7 - 25 %) 11.7 Hemoglobin A1c (<5.7) 5.3 Urines Urine Color Cancelled Urine Clarity Cancelled Urine pH Cancelled Ur Specific [place] Cancelled Urine Protein Cancelled Urine Ketones Cancelled Urine Nitrite Cancelled Urine Bilirubin Cancelled Urine Urobilinogen Cancelled Ur Leukocyte Esterase Cancelled Ur Microscopic Cancelled Urine Hemoglobin Cancelled Urine Glucose Cancelled 12/17 0930 Chemistry Sodium (137 - 145 mmol/L) 137 Potassium (3.5 - 5.1 mmol/L) 5.3 H Chloride (98 - 107 mmol/L) 100 Carbon Dioxide (22 - 30 mmol/L) 23 Anion Gap (5 - 16) 15 BUN (7 - 17 mg/dL) 72 H Creatinine (0.5 - 1.0 mg/dL) 4.7 H Estimated GFR (>60 ml/min) 9 L BUN/Creatinine Ratio (7 - 25 %) 15.3 Glucose (65 - 99 mg/dL) 114 H Calcium (8.4 - 10.2 mg/dL) 8.5 Magnesium (1.6 - 2.3 mg/dL) 1.4 L Total Bilirubin (0.2 - 1.3 mg/dL) 0.6 AST (14 - 36 U/L) 10 L ALT (9 - 52 U/L) 26 Alkaline Phosphatase (<127 U/L) 84 Total Protein (6.3 - 8.2 g/dL) 6.2 L Albumin (3.5 - 5.0 g/dL) 3.8 Globulin (1.9 - 4.2 gm/dL) 2.4 Albumin/Globulin Ratio (1.1 - 2.2 %) 1.6 TSH (0.270 - 4.200 uIU/mL) 0.974 Thyroxine (T4) (4.5 - 10.9 ug/dL) 2.8 L Coagulation PT (9.4 - 12.5 SEC) 44.4 *H INR (0.90 - 1.19) 4.29 *H APTT (25 - 37 SEC) 33 Hematology CBC w Diff MAN DIFF ORDERED WBC (4.8 - 10.8 /CUMM) 13.4 H RBC (4.20 - 5.40 /CUMM) 3.76 L Hgb (12.0 - 16.0 G/DL) 11.4 L Hct (37 - 47 %) 35.7 L MCV (81.0 - 99.0 FL) 94.9 MCH (27.0 - 31.0 PG) 30.4 RDW (11.5 - 14.5 %) 15.0 H Plt Count (130 - 400 /CUMM) 249 MPV (7.4 - 10.4 FL) 8.3 Gran % (42.2 - 75.2 %) 94.7 H Lymphocytes % (20.5 - 51.1 %) 3.3 L Monocytes % (1.7 - 9.3 %) 2.0 Eosinophils % (0 - 5 %) 0 Basophils % (0.0 - 2.0 %) 0 L Absolute Granulocytes (1.4 - 6.5 /CUMM) 12.7 H Absolute Lymphocytes (1.2 - 3.4 /CUMM) 0.4 L Absolute Monocytes (0.10 - 0.60 /CUMM) 0.3 Absolute Eosinophils (0.0 - 0.7 /CUMM) 0 Absolute Basophils (0.0 - 0.2 /CUMM) 0 Platelet Estimate (ADEQUATE) VERIFIED BY SMEAR Anisocytosis 1+ PUBS MCHC (33.0 - 37.0 G/DL) 32.0 L Assessment/Plan Assessment/Plan This is a 66 year old female who was admitted to the medical service for left hip fracture. INR this morning is 1.62, will plan for OR today. - Pain control - NPO, IVF. Plan for OR today for L imhs around 3pm. - HOLD heparin gtt at 11am, discussed with Dr. Vick and nursing - [facility] - strict I&Os - DVT prophylasix: TBD after surgery - May need FFP prior to surgery - Discussed with Dr. Vick
--- NOTE | 2016-12-19 07:58 | PN- Housestaff ---
Subjective Follow-up For: - Left hip fracture Subjective: Patient was in mild distress, secondary to pain when his this morning. Did not have any other complaints. Stated that she slept well overnight. She was to be taken to the OR, for surgery. IV heparin discontinued 4-6 hours prior to surgery. Nurse aware. Vital stable overnight. Oxygen saturation were 92% on 3 L oxygen. Review of Systems Constitutional: Reports: see HPI. Objective Last 24 Hrs of Vital Signs/I&O Vital Signs Date Time Temp Pulse Resp B/P Pulse O2 O2 Flow FiO2 Ox Delivery Rate 12/19 0635 98.5 75 18 120/70 96 Nasal 3.0L Cannula 12/19 0000 Nasal 3.0L Cannula 12/18 2155 98.3 69 16 132/52 12/18 2115 95 Nasal 3.0L Cannula 12/18 1600 Nasal 3.0L Cannula 12/18 1358 97.7 72 20 138/62 96 12/18 0822 98 Nasal 3.0L Cannula 12/18 0800 95 Nasal 3.0L Cannula Intake & Output 12/19 0800 12/19 0000 12/18 1600 Intake Total 782 004 0377 Output Total 340 Balance 390 413 8147 Intake, IV 208 Intake, Oral 480 1400 Number 1 2 Bowel Movements Output, Urine 340 Patient 170 lb 170 lb Weight Physical Exam General Appearance: Mild Distress Other Physical Findings: General Exam: AAOx3, No acute distress, Skin: No rashes, no breakdown HEENT: PERRLA, EOMI Neck: Supple, No JVD No cervical lymphadenopathy CVS: Reg Rate, Normal S1,S2, No MGR Resp: Normal air entry, no ronchi/rales Abdomen: Soft, No tenderness, Normal Bowel Sounds Neuro: Normal Speech, Strength 5/5 b/l x 3 extremities, Sensation intact, CN III -XII NL, Reflexes 2+ Extremities: No cyanosis, left lower extremity-could not be examined secondary to pain. Current Medications: Current Medications Sig/Tripp Start time Last Medication Dose Route Stop Time Status Admin Acetaminophen 650 MG Q6P PRN 12/17 1145 AC PO Albuterol Sulfate 3 ML EVERY 4 HRS/AWAKE 12/17 1600 AC 12/19 INH 1147 Albuterol Sulfate 2 PUF Q4-6 PRN PRN 12/17 1400 AC INH Amlodipine Besylate 10 MG AT BEDTIME 12/17 2200 AC 12/18 PO 2155 Bisacodyl 5 MG AT BEDTIME 12/18 2200 AC 12/18 PO 2155 Budesonide/ 2 PUF BID 12/17 2200 AC 12/19 Formoterol Fumarate INH 0859 Cholecalciferol 1,000 IU DAILY 12/18 1000 AC 12/19 PO 0859 Diltiazem HCl 120 MG DAILY 12/17 1224 AC 12/19 PO 0858 Epoetin Jerson 4,000 UNIT MoWeFr 12/17 1999 AC IV Furosemide 40 MG 7:30 AM, & 4:30 PM 12/17 1630 AC 12/19 PO 0854 Heparin Sodium 5,800 UNIT ONCE ONE 12/19 0745 DC 12/19 (Porcine) IV 12/19 0746 0829 Heparin Sodium/ 25,000 UNIT Q24H 12/18 2300 AC 12/19 Dextrose IV 0011 Dextrose/Water 500 ML Hydromorphone HCl 1 MG Q6P PRN 12/18 1445 AC 12/19 IV 1121 Lorazepam 0.25 MG ONCE PRN 12/19 1200 AC 12/19 IV 1321 Lorazepam 2 MG QPM 12/17 2200 AC 12/18 PO 2154 Multivitamins 1 TAB DAILY 12/18 1000 AC 12/19 PO 0858 Oxycodone HCl 15 MG Q6 PRN 12/17 1545 AC 12/19 PO 0901 Paricalcitol 2 MCG MoWeFr 12/17 1999 IV Polyethylene Glycol 17 GM DAILY 12/18 2115 AC 12/18 PO 2222 Prednisone 10 MG DAILY 12/18 1000 AC 12/19 PO / 1100 0858 Senna 187 MG AT BEDTIME 12/18 2200 AC 12/18 PO 2222 Sertraline HCl 100 MG DAILY 12/18 1000 AC 12/19 PO 0859 Sevelamer HCl 2,400 MG TIDAC 12/17 1200 AC 12/19 PO 0855 Tiotropium [place] 1 PUF DAILY 12/18 1000 AC 12/19 INH 0859 Last 24 Hrs of Lab/Thien Results Last 24 Hrs of Labs/Mics: Laboratory Tests 12/19/16 1200: PT Cancelled, INR Cancelled 12/19/16 0555: Anion Gap 12, Estimated GFR 11 L, BUN/Creatinine Ratio 12.1, PT 16.9 H, INR 1.62 H, APTT 42 H, CBC w Diff NO MAN DIFF REQ, RBC 3.42 L, MCV 94.4, MCH 30.5 , RDW 15.7 H, MPV 8.1, Gran % 88.9 H, Lymphocytes % 4.3 L, Monocytes % 4.9, Eosinophils % 0.5, Basophils % 1.4, Absolute Granulocytes 14.9 H, Absolute Lymphocytes 0.7 L, Absolute Monocytes 0.8 H, Absolute Eosinophils 0.1, Absolute Basophils 0.2, PUBS MCHC 32.3 L 12/18/16 1855: PT 19.4 H, INR 1.86 H 12/18/16 1842: PT Cancelled, INR Cancelled 12/18/16 1830: PT Cancelled, INR Cancelled 12/18/16 1810: PT Cancelled, INR Cancelled Assessment/Plan Assessment: 66 years old F with PMH of COPD on home oxygen, hypertension, mitral valve stenosis S/P replacement 1995, A. fib on warfarin, CHF, hypertension who presented after sustaining a mechanical fall and having evidence of intertrochanteric fracture with mild displacement. Will go for surgical hip repair. Patient has ESRD on HD, fluid overloaded at presentation. Imaging Left hip X ray IMPRESSION: 1. Left hip: Mildly displaced intertrochanteric fracture of the left femur. 2. Left knee: No acute findings. Admitted to general medicine floor Problem list Left mildly displaced intertrochanteric fracture Surgery. INR of 4.29 at presentation. She had a very complicated and extensive cardiac history to reverse her INR. Ortho following. Pain control with Hydromorphine 1mg Q6 and oxycodone 15mg Q6. INR 1.62. Currently on IV heparin, which was discontinued this a.m. in anticipation for surgery. To discuss with the surgery, before resuming IV heparin for anticoagulation. End-stage renal disease on hemodialysis Her K is 5.3 with Cr 4.7 at presentation. Underwent hemodialysis with epo 4000 units IV, Zemplar 2mcg IV. On 2gm sodium & potassium diet. On sevelamer 2400mg with meals. Her Cr post dialysis is 2.3. Nephro following appreciate their recommendations. Permanent Atrial Fibrillation History of paroxysmal followed by permanent A.Fib with RVR , leading to AV node ablation (Aug 2010) and placement of Biventricular pacemaker placement complicated by splenic hematoma. Congestive Heart failure * Last ECHO was on 06/04/2015 showing concentric LVH with mild dilatation. EF - 50-55% Prosthetic mitral valves * History of Rheumatic heart disease with Mitral Stenosis S/P Mechanical valve replacement in february 1996. * Requires anticoagulation with goal INR of 2-3. COPD on home oxygen * Chronic and stable. * History of recurrent exacerbations complicated with spontaneous pneumothorax. * Currently on 3L oxygen. On chronic steroid therapy with prednisone 10mg. TRC and nebs Depression/Anxiety * Her home medications Sertraline 100mg, Ativan 2mg are continued. Hypertension * Her home medication Amlodipine 10mg is continued. DVT prophylaxis * Supratherapeutic INR Code Status * DNR/DNI Problem List: 1. Hip fracture Pain Ratin Pain Location: Left hip, left leg Pain Goal: Pain 4 or less Pain Plan: Intravenous Dilaudid Oxycodone Tomorrow's Labs & Rationales: PT/INR-to dose Coumadin. CBC-to monitor for H&H status post surgery Basic electrolyte panel-to monitor for abnormal renal function.
--- NOTE | 2016-12-19 12:07 | PN- Att Addend ---
Attending Addendum Attending Brief Note Patient is awaiting for surgery today. General Appearance: Alert, No Acute Distress Skin: Grossly normal HEENT: PEERLA Neck: Supple, No JVD Cardiovascular: Regular Rate, Normal S1, Normal S2, No Murmurs Lungs: Clear to Auscultation, Normal Air Movement Abdomen: Normal Bowel Sounds, Soft, No Tenderness Neurological: Normal Speech, Strength at 5/5 X4 Ext, Cranial Nerves 3-12 NL, Reflexes 2+ Extremities: Left hip tenderness Vascular: Normal Pulses Assessment Left hip fracture status post fall awaiting surgical repair. INR in subtherapeutic range and patient will be taken for surgery today. Plan Resume anticoagulation post surgery Continue routine dialysis Continue current pain meds Continue other home meds DNI/DNR Current Medications Sig/Tripp Start time Last Medication Dose Route Stop Time Status Admin Acetaminophen 650 MG Q6P PRN 12/17 1145 AC PO Albuterol Sulfate 3 ML EVERY 4 HRS/AWAKE 12/17 1600 AC 12/19 INH 1147 Albuterol Sulfate 2 PUF Q4-6 PRN PRN 12/17 1400 AC INH Amlodipine Besylate 10 MG AT BEDTIME 12/17 2200 AC 12/18 PO 2155 Bisacodyl 5 MG AT BEDTIME 12/18 2200 AC 12/18 PO 2155 Budesonide/ 2 PUF BID 12/17 2200 AC 12/19 Formoterol Fumarate INH 0859 Cholecalciferol 1,000 IU DAILY 12/18 1000 AC 12/19 PO 0859 Diltiazem HCl 120 MG DAILY 12/17 1224 AC 12/19 PO 0858 Epoetin [place] 4,000 UNIT MoWeFr 12/17 2000 AC IV Furosemide 40 MG 7:30 AM, & 4:30 PM 12/17 1630 AC 12/19 PO 0854 Heparin Sodium 5,800 UNIT ONCE ONE 12/19 0745 DC 12/19 (Porcine) IV 12/19 0746 0829 Heparin Sodium/ 25,000 UNIT Q24H 12/18 2300 AC 12/19 Dextrose IV 0011 Dextrose/Water 500 ML Hydromorphone HCl 1 MG Q6P PRN 12/18 1445 AC 12/19 IV 1121 Hydromorphone HCl 0.5 MG Q6P PRN 12/18 1230 DC IV Lorazepam 0.25 MG ONCE PRN 12/19 1200 AC IV Lorazepam 2 MG QPM 12/17 2200 AC 12/18 PO 2154 Morphine Sulfate 1 MG Q6P PRN 12/17 1600 DC 12/18 IV 0903 Multivitamins 1 TAB DAILY 12/18 1000 AC 12/19 PO 0858 Oxycodone HCl 15 MG Q6 PRN 12/17 1545 AC 12/19 PO 0901 Paricalcitol 2 MCG MoWeFr 12/17 2000 AC IV Polyethylene Glycol 17 GM DAILY 12/18 2115 AC 12/18 PO 2222 Prednisone 10 MG DAILY 12/18 1000 AC 12/19 PO 12/22 1100 0858 Senna 187 MG AT BEDTIME 12/18 2200 AC 12/18 PO 2222 Sertraline HCl 100 MG DAILY 12/18 1000 AC 12/19 PO 0859 Sevelamer HCl 2,400 MG TIDAC 12/17 1200 AC 12/19 PO 0855 Tiotropium [place] 1 PUF DAILY 12/18 1000 AC 12/19 INH 0859 Laboratory Tests 12/19 12/19 12/18 1200 0555 1855 Chemistry Sodium (137 - 145 mmol/L) 136 L Potassium (3.5 - 5.1 mmol/L) 4.6 Chloride (98 - 107 mmol/L) 103 Carbon Dioxide (22 - 30 mmol/L) 21 L Anion Gap (5 - 16) 12 BUN (7 - 17 mg/dL) 51 H Creatinine (0.5 - 1.0 mg/dL) 4.2 H Estimated GFR (>60 ml/min) 11 L BUN/Creatinine Ratio (7 - 25 %) 12.1 Coagulation PT (9.4 - 12.5 SEC) Cancelled 16.9 H 19.4 H INR (0.90 - 1.19) Cancelled 1.62 H 1.86 H APTT (25 - 37 SEC) 42 H Hematology CBC w Diff NO MAN DIFF REQ WBC (4.8 - 10.8 /CUMM) 16.7 H RBC (4.20 - 5.40 /CUMM) 3.42 L Hgb (12.0 - 16.0 G/DL) 10.4 L Hct (37 - 47 %) 32.3 L MCV (81.0 - 99.0 FL) 94.4 MCH (27.0 - 31.0 PG) 30.5 RDW (11.5 - 14.5 %) 15.7 H Plt Count (130 - 400 /CUMM) 225 MPV (7.4 - 10.4 FL) 8.1 Gran % (42.2 - 75.2 %) 88.9 H Lymphocytes % (20.5 - 51.1 %) 4.3 L Monocytes % (1.7 - 9.3 %) 4.9 Eosinophils % (0 - 5 %) 0.5 Basophils % (0.0 - 2.0 %) 1.4 Absolute Granulocytes (1.4 - 6.5 /CUMM) 14.9 H Absolute Lymphocytes (1.2 - 3.4 /CUMM) 0.7 L Absolute Monocytes (0.10 - 0.60 /CUMM) 0.8 H Absolute Eosinophils (0.0 - 0.7 /CUMM) 0.1 Absolute Basophils (0.0 - 0.2 /CUMM) 0.2 PUBS MCHC (33.0 - 37.0 G/DL) 32.3 L 12/18 12/18 12/18 1842 1830 1810 Coagulation PT Cancelled Cancelled Cancelled INR Cancelled Cancelled Cancelled Vital Signs Date Time Temp Pulse Resp B/P Pulse O2 O2 Flow FiO2 Ox Delivery Rate 12/19 0900 Nasal 3.0L Cannula 12/19 0635 98.5 75 18 120/70 96 Nasal 3.0L Cannula 12/19 0000 Nasal 3.0L Cannula 12/18 2155 98.3 69 16 132/52 12/18 2115 95 Nasal 3.0L Cannula 12/18 1600 Nasal 3.0L Cannula 12/18 1358 97.7 72 20 138/62 96
[2016-12-19 18:00] VITALS: BP 140/60
--- NOTE | 2016-12-19 19:14 | RADIOLOGY REPORT ---
EXAMINATION: FL ASSISTANCE PROVIDED AT THE TIME OF ORIF OF HIP FRACTURE, LEFT CLINICAL INFORMATION: A 66-year-old female with left hip fracture. COMPARISON: Left hip done on 12/17/2016. TECHNIQUE: C-arm fluoroscopy assistance is provided at the time of the ORIF of left hip fracture. Five spot radiographs were obtained at the time of the procedure. Total Fluoroscopy Time was 72.7 seconds. FINDINGS: Five spot radiographs were obtained at the time of ORIF of left hip fracture. Gamma Nail placement was performed with final radiographs show satisfactory well aligned hardware. IMPRESSION: Fluoroscopic assistance and successful placement of Gamma Nail at the site of left hip fracture. Full procedural details will be dictated by Dr. Vick.
--- NOTE | 2016-12-19 19:15 | NUR ---
PATIENT RECEIVED FROM PACU AT 1800. PATIENT ALERT AND ORIENTED X 3. DENIES ANY DISCOMFORT TO LEFT LOWER EXTREMITY. LLE DRESSING DRY AND INTACT WITH SOME DRY SHADOWING TO DRESSING. DURAKOOL IN PLACE. PATIENT STATES "NUMBNESS STILL IN LLE". DINNER ORDERED. CALL LIGHT WITHIN REACH. WILL CONTINUE TO MONITOR.
--- NOTE | 2016-12-19 20:34 | PN- Orthopedic ---
Subjective Subjective: Postop check Postoperative day #0 status post IM nail of the left hip. Patient reports no significant complaints at this time. She denies hip pain. She is tolerating liquids and food, without complaints of nausea. Otherwise denies headache, dizziness, chest pain, short of breath. Objective Vital Signs and I&Os Vital Signs Date Time Temp Pulse Resp B/P Pulse O2 O2 Flow FiO2 Ox Delivery Rate 12/19 1910 92 Nasal 3.0L Cannula 12/19 1800 94 Nasal 3.0L Cannula 12/19 0900 Nasal 3.0L Cannula 12/19 0800 93 Nasal 3.0L Cannula 12/19 0635 98.5 75 18 120/70 96 Nasal 3.0L Cannula 12/19 0000 Nasal 3.0L Cannula 12/18 2155 98.3 69 16 132/52 12/18 2115 95 Nasal 3.0L Cannula Intake & Output 12/19 1600 12/19 0800 12/19 0000 12/18 1600 12/18 0800 12/18 0000 Intake Total 330 015 2434 120 70 Output Total 340 100 Balance 700 384 0197 20 70 Intake, IV 208 20 20 Intake, Oral 480 1400 100 50 Number 1 1 2 Bowel Movements Output, Urine 340 100 Patient 170 lb 170 lb 166 lb 172 lb Weight Physical Exam: Gen.: Patient is awake and alert. She is in no acute distress and is verbalizing well. Extremities: The left hip dressing contains a small amount of bloody drainage at the superior aspect, but it is not leaking outside of the dressing. The thigh is swollen, as expected, but still soft. left leg is warm and there is a 2+ DP pulse. no significant calf tenderness. Assessment/Plan Assessment/Plan Patient is a 66-year-old female with history of hypertension, CHF, O2 dependent COPD, MVR, A. fib(On Coumadin at home), and end-stage renal disease on hemodialysis, who is now postoperative day #0 status post IM nail for a left hip fracture. Recommendations: -Continue to advance diet as tolerated. -Okay to resume heparin drip after 9 PM. -Follow-up CBC in the morning. If it remains stable, okay to consider resuming Coumadin. -PT consult in the morning for mobilization and discharge recommendations. Patient may weight-bear as tolerated. -Plan for dressing change on postoperative day #2 area -Pain control. -Patient received 2 g of Ancef preoperatively for prophylaxis. I discussed with pharmacy, and given her renal function, no further antibiotics are indicated in this 24-hour period. -Medical management as per primary team. -We will continue to follow.
[2016-12-19 22:16] VITALS: BP 112/60
--- NOTE | 2016-12-19 23:00 | NUR ---
HEPARIN GTT RESTARTED PER ORDER. NEXT PTT TO BE DRAWN ON 12/20/16 AT 0400. PATIENT TURNED AND REPOSITIONED FOR COMFORT. DURAKOOL APPLIED TO LEFT HIP. CALL LIGHT WITHIN REACH.
[2016-12-20 02:09] VITALS: BP 108/64
[2016-12-20 04:41] LABS: ABSOLUTE BASOPHIL COUNT 0 /CUMM (0.0-0.2); ABSOLUTE EOSINOPHIL COUNT 0 /CUMM (0.0-0.7); ABSOLUTE GRANULOCYTE CT 16.3 /CUMM (1.4-6.5); ABSOLUTE LYMPH COUNT 0.4 /CUMM (1.2-3.4); ABSOLUTE MONOCYTE COUNT 0.5 /CUMM (0.10-0.60); BASOPHIL % 0 % (0.0-2.0); EOSINOPHIL % 0 % (0-5); GRANULOCYTE % 95.3 % (42.2-75.2); HEMATOCRIT 28.6 % (37-47); MEAN CORPUSCULAR HGB 30.3 PG (27.0-31.0); MEAN CORPUSCULAR HGB CONC 31.9 G/DL (33.0-37.0); MEAN PLATELET VOLUME 8.6 FL (7.4-10.4); PLATELET COUNT 222 /CUMM (130-400); RBC DISTRIBUTION WIDTH 15.6 % (11.5-14.5); RED BLOOD CELL CT 3.01 /CUMM (4.20-5.40); WHITE BLOOD CELL COUNT 17.1 /CUMM (4.8-10.8)
[2016-12-20 04:49] LABS: PTT 37 SEC (25-37)
[2016-12-20 06:21] VITALS: BP 118/66
--- NOTE | 2016-12-20 06:50 | PN- Housestaff ---
Subjective Follow-up For: Left intertrochanteric fracture Prosthetic mitral valve Subjective: I saw the patient today. She is alert and oriented X 3. she is in lot of pain, requesting increase in pain medications. Denies any nausea, vomiting. Had a bowel movement today. still on IV heparin. Review of Systems Constitutional: Reports: see HPI. Comments: ROS negative except the above. Objective Last 24 Hrs of Vital Signs/I&O Vital Signs Date Time Temp Pulse Resp B/P Pulse O2 O2 Flow FiO2 Ox Delivery Rate 12/20 0621 97.9 73 18 118/66 96 Nasal 3.0L Cannula 12/20 0209 97.8 73 20 108/64 95 Nasal Cannula 12/19 2216 98.1 69 18 112/60 95 Nasal Cannula 12/19 2133 98.1 69 18 112/60 12/19 1910 92 Nasal 3.0L Cannula 12/19 1800 94 Nasal 3.0L Cannula 12/19 1800 98.0 72 16 140/60 94 Nasal 3.0L Cannula 12/19 0900 Nasal 3.0L Cannula 12/19 0800 93 Nasal 3.0L Cannula Intake & Output 12/20 0800 12/20 0000 12/19 1600 Intake Total 512.2 Output Total Balance 512.2 Intake, IV 32.2 Intake, Oral 480 Number 1 1 Bowel Movements Patient 77.111 kg Weight Physical Exam General Appearance: Alert, Oriented X3, Mild Distress Skin: No Rashes, No Breakdown HEENT: Atraumatic, PERRLA Neck: Supple Cardiovascular: Normal S1, Normal S2 Lungs: Normal Air Movement Abdomen: Normal Bowel Sounds, Soft, No Tenderness Neurological: Normal Tone, Sensation Intact Extremities: No Clubbing, No Cyanosis Vascular: Normal Pulses, Pulses Symmetrical Current Medications: Current Medications Sig/Tripp Start time Last Medication Dose Route Stop Time Status Admin Acetaminophen 650 MG Q6P PRN 12/19 1700 AC PO Acetaminophen 650 MG Q6P PRN 12/17 1145 DC PO Albuterol Sulfate 3 ML EVERY 4 HRS/AWAKE 12/19 2000 AC 12/19 INH 1910 Albuterol Sulfate 2 PUF Q4-6 PRN PRN 12/19 1700 AC INH Albuterol Sulfate 3 ML EVERY 4 HRS/AWAKE 12/17 1600 DC 12/19 INH 1147 Albuterol Sulfate 2 PUF Q4-6 PRN PRN 12/17 1400 DC INH Amlodipine Besylate 10 MG AT BEDTIME 12/19 2200 AC 12/19 PO 2133 Amlodipine Besylate 10 MG AT BEDTIME 12/17 2200 DC 12/18 PO 2155 Bisacodyl 5 MG AT BEDTIME 12/19 2200 AC 12/19 PO 2132 Bisacodyl 5 MG AT BEDTIME 12/18 2200 DC 12/18 PO 2155 Budesonide/ 2 PUF BID 12/19 2200 AC 12/19 Formoterol Fumarate INH 2131 Budesonide/ 2 PUF BID 12/17 2200 DC 12/19 Formoterol Fumarate INH 0859 Cholecalciferol 1,000 IU DAILY 12/20 1000 AC PO Cholecalciferol 1,000 IU DAILY 12/18 1000 DC 12/19 PO 0859 Diltiazem HCl 120 MG DAILY 12/20 1000 AC PO Diltiazem HCl 120 MG DAILY 12/17 1224 DC 12/19 PO 0858 Epoetin [place] 4,000 UNIT MoWeFr 12/20 1653 AC IV Epoetin [place] 4,000 UNIT MoWeFr 12/17 2000 DC IV Fentanyl Citrate 100 MCG .STK-MED ONE 12/19 1453 DC IM 12/19 1454 Fentanyl Citrate 100 MCG .STK-MED ONE 12/19 1442 DC IM 12/19 1443 Furosemide 40 MG 7:30 AM, & 4:30 PM 12/20 0730 AC PO Furosemide 40 MG 7:30 AM, & 4:30 PM 12/17 1630 DC 12/19 PO 0854 Heparin Sodium 5,800 UNIT ONCE ONE 12/20 0540 DC (Porcine) IV 12/20 0541 Heparin Sodium 10,000 UNIT .STK-MED ONE 12/19 0801 DC (Porcine) IV 12/19 0802 Heparin Sodium 5,800 UNIT ONCE ONE 12/19 0745 DC 12/19 (Porcine) IV 12/19 0746 0829 Heparin Sodium/ 25,000 UNIT Q24H 12/19 2100 AC 12/19 Dextrose IV 2209 Dextrose/Water 500 ML Heparin Sodium/ 25,000 UNIT Q24H 12/18 2300 DC 12/19 Dextrose IV 0011 Dextrose/Water 500 ML Hydromorphone HCl 1 MG Q6P PRN 12/19 1700 AC 12/20 IV 0430 Hydromorphone HCl 1 MG Q6P PRN 12/18 1445 DC 12/19 IV 1121 Lorazepam 2 MG QPM 12/19 2200 AC 12/19 PO 2132 Lorazepam 0.25 MG ONCE PRN 12/19 1200 DC 12/19 IV 1321 Lorazepam 2 MG QPM 12/17 2200 DC 12/18 PO 2154 Midazolam HCl 2 MG .STK-MED ONE 12/19 1442 DC IM 12/19 1443 Multivitamins 1 TAB DAILY 12/20 1000 AC PO Multivitamins 1 TAB DAILY 12/18 1000 DC 12/19 PO 0858 Oxycodone HCl 15 MG Q6 PRN 12/19 1700 AC 12/20 PO 0130 Oxycodone HCl 15 MG Q6 PRN 12/17 1545 DC 12/19 PO 0901 Paricalcitol 2 MCG MoWeFr 12/20 1653 AC IV Paricalcitol 2 MCG MoWeFr 12/17 2000 DC IV Polyethylene Glycol 17 GM DAILY 12/20 1000 AC PO Polyethylene Glycol 17 GM DAILY 12/18 2115 DC 12/18 PO 2222 Prednisone 10 MG DAILY 12/20 1000 AC PO Prednisone 10 MG DAILY 12/18 1000 DC 12/19 PO 12/22 1100 0858 Senna 187 MG AT BEDTIME 12/19 2200 AC 12/19 PO 2132 Senna 187 MG AT BEDTIME 12/18 2200 DC 12/18 PO 2222 Sertraline HCl 100 MG DAILY 12/20 1000 AC PO Sertraline HCl 100 MG DAILY 12/18 1000 DC 12/19 PO 0859 Sevelamer HCl 2,400 MG TIDAC 12/19 1700 AC 12/19 PO 1846 Sevelamer HCl 2,400 MG TIDAC 12/17 1200 DC 12/19 PO 0855 Tiotropium [place] 1 PUF DAILY 12/20 1000 AC INH Tiotropium [place] 1 PUF DAILY 12/18 1000 DC 12/19 INH 0859 Last 24 Hrs of Lab/Thien Results Last 24 Hrs of Labs/Mics: Laboratory Tests 12/20/16 0600: APTT Cancelled 12/20/16 0420: Anion Gap 12, Estimated GFR 8 L, BUN/Creatinine Ratio 14.0, APTT 37, CBC w Diff MAN DIFF ORDERED, RBC 3.01 L, MCV 95.0, MCH 30.3, RDW 15.6 H, MPV 8.6, Gran % 95.3 H, Lymphocytes % 2.1 L, Monocytes % 2.6, Eosinophils % 0, Basophils % 0 L, Absolute Granulocytes 16.3 H, Absolute Lymphocytes 0.4 L, Absolute Monocytes 0.5, Absolute Eosinophils 0, Absolute Basophils 0, Platelet Estimate ADEQUATE, Hypochromic-Microcytic 1+, Poikilocytosis 1+, Ovalocytes 1+, PUBS MCHC 31.9 L 12/19/16 1200: PT Cancelled, INR Cancelled Lines/Diet/Fluids Lines: peripheral lines Assessment/Plan Assessment: 66 years old F with PMH of COPD on home oxygen, hypertension, mitral valve stenosis S/P replacement 1995, Mil guillory on warfarin, CHF, hypertension who presented after sustaining a mechanical fall and having evidence of intertrochanteric fracture with mild displacement. Will go for surgical hip repair. Patient has ESRD on HD, fluid overloaded at presentation. Imaging Left hip X ray IMPRESSION: 1. Left hip: Mildly displaced intertrochanteric fracture of the left femur. 2. Left knee: No acute findings. Admitted to general medicine floor Problem list Left mildly displaced intertrochanteric fracture INR of 4.29 at presentation. She had a very complicated and extensive cardiac history to reverse her INR. Ortho following. Pain control with Hydromorphine 1mg Q6 and oxycodone 15mg Q6. INR 1.62. Underwent surgery yesteray, she was resumed on IV heparin after surgery. Now started on coumadin 3mg today. Once her INR is stable for 2days we will discontinue IV heparin. End-stage renal disease on hemodialysis Her K is 5.3 with Cr 4.7 at presentation. Underwent hemodialysis with epo 4000 units IV, Zemplar 2mcg IV. On 2gm sodium & potassium diet. On sevelamer 2400mg with meals. Her Cr post dialysis is 2.3. Underwent hemodialysis today again. Nephro following appreciate their recommendations. Permanent Atrial Fibrillation History of paroxysmal followed by permanent Pancho.Glendy with RVR , leading to AV node ablation (Aug 2010) and placement of Biventricular pacemaker placement complicated by splenic hematoma. On IV heparin after surgery , started bridging with warfarin from today. Congestive Heart failure * Last ECHO was on 06/04/2015 showing concentric LVH with mild dilatation. EF - 50-55% Prosthetic mitral valves * History of Rheumatic heart disease with Mitral Stenosis S/P Mechanical valve replacement in february 1996. * Requires anticoagulation with goal INR of 2-3. COPD on home oxygen * Chronic and stable. * History of recurrent exacerbations complicated with spontaneous pneumothorax. * Currently on 3L oxygen. On chronic steroid therapy with prednisone 10mg. TRC and nebs Depression/Anxiety * Her home medications Sertraline 100mg, Ativan 2mg are continued. Hypertension * Her home medication Amlodipine 10mg is continued. DVT prophylaxis * IV heparin Code Status * DNR/DNI Problem List: 1. COPD 2. Depression 3. Closed left hip fracture 4. Fall due to stumbling 5. ESRD (end stage renal disease) on dialysis Pain Ratin Pain Location: left hip Pain Goal: Pain 4 or less Pain Plan: Dilaudid 1mg Q4, Oxycodon 15mg PO Tomorrow's Labs & Rationales: CBC as patient is on IV heparin PT for coumadin dosing.
--- NOTE | 2016-12-20 07:39 | PN- Orthopedic ---
Subjective Subjective: No acute overnight events reported. Patient tolerating po. No nausea and vomitting. Pain is well controlled. She denies chest pain, shortness of breath and difficulty breathing. She notes numbness to the anterior aspect of operative thigh only, posterior aspect sensation intact. Distal sensations grossly intact. Objective Vital Signs and I&Os Vital Signs Date Time Temp Pulse Resp B/P Pulse O2 O2 Flow FiO2 Ox Delivery Rate 12/20 0621 97.9 73 18 118/66 96 Nasal 3.0L Cannula 12/20 0209 97.8 73 20 108/64 95 Nasal Cannula 12/19 2216 98.1 69 18 112/60 95 Nasal Cannula 12/19 2133 98.1 69 18 112/60 12/19 1910 92 Nasal 3.0L Cannula 12/19 1800 94 Nasal 3.0L Cannula 12/19 1800 98.0 72 16 140/60 94 Nasal 3.0L Cannula 12/19 0900 Nasal 3.0L Cannula 12/19 0800 93 Nasal 3.0L Cannula Intake & Output 12/20 0800 12/20 0000 12/19 1600 12/19 0800 12/19 0000 12/18 1600 Intake Total 512.2 928 079 0308 Output Total 340 Balance 512.2 152 815 9305 Intake, IV 32.2 208 Intake, Oral 122 198 2835 Number 1 1 1 2 Bowel Movements Output, Urine 340 Patient 170 lb 170 lb 170 lb Weight Physical Exam: General: Alert and oriented x3, no acute distress Cardiac: irregular Pulm: Bilateral rhonchi noted Abdomen: Non-tender, non-distended Extremites: Moves all extremites, distal sensation intact. Left anterior thigh numbness reported. Motor 5/5 in plantar and dorsi flexion. Skin warm and well perfused. DP pulses palpable bilaterally. Bilateral calves soft and non-tender Extremities: Moves all extremities, distal sensation intact, numbness noted anterior thigh left, dressing dry and intact, small amt of dry blood noted on superior aspect. Assessment/Plan Assessment/Plan Patient is a 66-year-old female with history of hypertension, CHF, O2 dependent COPD, MVR, A. fib(On Coumadin at home), and end-stage renal disease on hemodialysis, who is now postoperative day #1 status post IM nail for a left hip fracture. Recommendations: -Continue to advance diet as tolerated. -Continue heparin drip for now -Follow-up CBC in the morning. If it remains stable, okay to consider resuming Coumadin. -PT consult in the morning for mobilization and discharge recommendations. Patient may weight-bear as tolerated. -Plan for dressing change on postoperative day #2 area -Pain control. -Patient received 2 g of Ancef preoperatively for prophylaxis. I discussed with pharmacy, and given her renal function, no further antibiotics are indicated in this 24-hour period. -Medical management as per primary team. -Will d/w Dr. Vick -We will continue to follow.
[2016-12-20 08:24] LABS: PT 16.6 SEC (9.4-12.5)
--- NOTE | 2016-12-20 09:08 | Discharge Summary ---
Visit Information Visit Dates Admission Date: 12/17/16 Hospital Course Course Attending Physician: YAIR SARAH MD Primary Care Physician: YAIR SARAH MD Consulting Request: Consulting Specialty: Orthopedics Hospital Course: This is this a 66 years old lady with past medical history of COPD oxygen dependent, hypertension, mitral valve stenosis status post valve replacement, A. fib, CHF, hypertension who presented after sustaining a mechanical fall and having evidence of intertrochanteric fracture with mild displacement. In the ED, she was found to be having a supratherapeutic INR of 4.29 and an elevated creatinine of 4.2, BUN of 72, K of 5.3. Physical Exam revealed: Alert, Oriented X3, Cooperative, No Acute Distress, Normal S1, Normal S2, Clear to Auscultation, Left LL slightly shorter than the right. She was admitted to the General medicine floor for further managment of the following conditions. Problem List: 1) Intertrochanteric fracture of the Right Femur: She was admitted to the medical floor for initial management. As her INR was elevated, surgery was postponed until acceptable INR levels were achieved. When INR reached 1.86 on 12/19, she was started on Hepain gtt. She underwent the placement of an intramedullary nail in the right intertrochanteric region on the same day. She was restarted on Coumadin the next day. 2) ESRD on HD: Nephro consult was placed. She was continued on her scheduled of HD. She was also continued on EPO, Zemplar, Sevelamer. 3) H/O Afib: Cardiology consult was placed initially, considering the patient had a high cardiac risk. She is currently s/p AVN ablation and BiV pacemaker placement, which was complicated by a splenic hematoma. Initially anticoagulation was held as she was supratherapeutic. She was then bridged with Heparin till surgery and then continued on it afterward till her INR became therapeutic. 4) Prosthetic Mitral Valve Replacement: She was continued on Anticoagulation. 5) COPD on Home Oxygen: She was continued on 10 mg of Prednisone and 3.0 L of O2 via NC (at baseline). 6) Depression and Anxiety: She was continued on home Sertraline and Ativan\ 7) Hypertension: She was continued on home Amlodipine. 8) DVT PPx: As above, supratherapeutic INR, Heparin and Coumadin were used. 9) Code Status: DNR/DNI Complications: None Allergies: Coded Allergies: NO KNOWN ALLERGIES (11/26/16) Significant Procedures: Placement of IM nail of the left hip for left intertrochanteric hip fracture done by Dr. Vick Disposition Summary Disposition Principal Diagnosis: Left Hip intertrochanteric fracture s/p placement of IM nail Additional Diagnosis: Oxygen dependent severe COPD Former smoker for more than 40 years s/p mitral valve replacement due to mitral stenosis A. fib end-stage renal disease on hemodialysis CHF Hypertension Discharge Disposition: SNF Discharge Instructions General Discharge Information Code Status: Do Not Resucitate/Intubat Patient's Diet: Heart Healthy Patient's Activity: As tolerated Follow-Up Instructions/Appts: Please make an appointment to see your: 1) PCP within one week from discharge 2) Your orthopedic surgeon within one week from discharge Copies To: AVINASH LANE,DENISA Khanna
--- NOTE | 2016-12-20 10:16 | PN- Nephrology ---
Assessment/Plan Assessment: ESRD - Routine dialysis today - fluid removal as tolerated. 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 Suggestion: -Dialysis today with fluid removal as tolerated -Next dialysis on Tuesday -Cont Epogen -Cont Zemplar Subjective Subjective: Pt seen and examined on dialysis Weight today 77.2kg Baseline EDW 75.5kg (180min of treatment) Significant fluid removal not tolerated POD #1 from IM nail for hip fracture Pain is controlled Breathing OK Objective Vital Signs and I&Os Vital Signs Date Time Temp Pulse Resp B/P Pulse O2 O2 Flow FiO2 Ox Delivery Rate 12/20 0621 97.9 73 18 118/66 96 Nasal 3.0L Cannula 12/20 0209 97.8 73 20 108/64 95 Nasal Cannula 12/19 2216 98.1 69 18 112/60 95 Nasal Cannula 12/19 2133 98.1 69 18 112/60 12/19 1910 92 Nasal 3.0L Cannula 12/19 1800 94 Nasal 3.0L Cannula 12/19 1800 98.0 72 16 140/60 94 Nasal 3.0L Cannula Intake & Output 12/20 1600 12/20 0400 12/19 1600 12/19 0400 12/18 1600 12/18 0400 Intake Total 512.2 172 341 4986 70 Output Total 440 Balance 512.2 019 309 8868 70 Intake, IV 32.2 208 20 20 Intake, Oral 928 122 1491 50 Number 1 2 2 Bowel Movements Output, Urine 440 Patient 170 lb 170 lb 170 lb 166 lb 172 lb Weight Physical Exam: Gen - OK appearing HEENT - supple CV - RRR Chest - clear anteriorly Abd- soft, nontender Ext - no peripheral edema Neuro - AOX3 Access - ANABELL AVF Current Medications: Current Medications Sig/Tripp Start time Last Medication Dose Route Stop Time Status Admin Acetaminophen 650 MG Q6P PRN 12/19 1700 AC PO Acetaminophen 650 MG Q6P PRN 12/17 1145 DC PO Albuterol Sulfate 3 ML EVERY 4 HRS/AWAKE 12/19 2000 AC 12/19 INH 1910 Albuterol Sulfate 2 PUF Q4-6 PRN PRN 12/19 1700 AC INH Albuterol Sulfate 3 ML EVERY 4 HRS/AWAKE 12/17 1600 DC 12/19 INH 1147 Albuterol Sulfate 2 PUF Q4-6 PRN PRN 12/17 1400 DC INH Amlodipine Besylate 10 MG AT BEDTIME 12/19 2200 AC 12/19 PO 2133 Amlodipine Besylate 10 MG AT BEDTIME 12/17 2200 DC 12/18 PO 2155 Bisacodyl 5 MG AT BEDTIME 12/19 2200 AC 12/19 PO 213 Bisacodyl 5 MG AT BEDTIME 12/18 2200 DC 12/18 PO 2155 Budesonide/ 2 PUF BID 12/19 2200 AC 12/19 Formoterol Fumarate INH 2131 Budesonide/ 2 PUF BID 12/17 2200 DC 12/19 Formoterol Fumarate INH 0859 Cholecalciferol 1,000 IU DAILY 12/20 1000 AC PO Cholecalciferol 1,000 IU DAILY 12/18 1000 DC 12/19 PO 0859 Diltiazem HCl 120 MG DAILY 12/20 1000 AC PO Diltiazem HCl 120 MG DAILY 12/17 1224 DC 12/19 PO 0858 Epoetin [place] 4,000 UNIT MoWeFr 12/20 1653 AC IV Epoetin [place] 4,000 UNIT MoWeFr 12/17 2000 DC IV Fentanyl Citrate 100 MCG .STK-MED ONE 12/19 1453 DC IM 12/19 1454 Fentanyl Citrate 100 MCG .STK-MED ONE 12/19 1442 DC IM 12/19 1443 Furosemide 40 MG 7:30 AM, & 4:30 PM 12/20 0730 AC PO Furosemide 40 MG 7:30 AM, & 4:30 PM 12/17 1630 DC 12/19 PO 0854 Heparin Sodium 5,800 UNIT ONCE ONE 12/20 0540 DC 12/20 (Porcine) IV 12/20 0541 0530 Heparin Sodium/ 25,000 UNIT Q24H 12/19 2100 AC 12/19 Dextrose IV 2209 Dextrose/Water 500 ML Heparin Sodium/ 25,000 UNIT Q24H 12/18 2300 DC 12/19 Dextrose IV 0011 Dextrose/Water 500 ML Hydromorphone HCl 1 MG Q6P PRN 12/19 1700 AC 12/20 IV 0430 Hydromorphone HCl 1 MG Q6P PRN 12/18 1445 DC 12/19 IV 1121 Lorazepam 2 MG QPM 12/19 2200 AC 12/19 PO 2132 Lorazepam 0.25 MG ONCE PRN 12/19 1200 DC 12/19 IV 1321 Lorazepam 2 MG QPM 12/17 2200 DC 12/18 PO 2154 Midazolam HCl 2 MG .STK-MED ONE 12/19 1442 DC IM 12/19 1443 Multivitamins 1 TAB DAILY 12/20 1000 AC PO Multivitamins 1 TAB DAILY 12/18 1000 DC 12/19 PO 0858 Oxycodone HCl 15 MG Q6 PRN 12/19 1700 AC 12/20 PO 0920 Oxycodone HCl 15 MG Q6 PRN 12/17 1545 DC 12/19 PO 0901 Paricalcitol 2 MCG MoWeFr 12/20 1653 AC IV Paricalcitol 2 MCG MoWeFr 12/17 2000 DC IV Polyethylene Glycol 17 GM DAILY 12/20 1000 AC PO Polyethylene Glycol 17 GM DAILY 12/18 2115 DC 12/18 PO 2222 Prednisone 10 MG DAILY 12/20 1000 AC PO Prednisone 10 MG DAILY 12/18 1000 DC 12/19 PO 12/22 1100 0858 Senna 187 MG AT BEDTIME 12/19 2200 AC 12/19 PO 2132 Senna 187 MG AT BEDTIME 12/18 2200 DC 12/18 PO 2222 Sertraline HCl 100 MG DAILY 12/20 1000 AC PO Sertraline HCl 100 MG DAILY 12/18 1000 DC 12/19 PO 0859 Sevelamer HCl 2,400 MG TIDAC 12/19 1700 AC 12/19 PO 1846 Sevelamer HCl 2,400 MG TIDAC 12/17 1200 DC 12/19 PO 0855 Tiotropium [place] 1 PUF DAILY 12/20 1000 AC INH Tiotropium [place] 1 PUF DAILY 12/18 1000 DC 12/19 INH 0859 Results Pertinent Lab Results: Laboratory Tests 12/20 12/20 12/20 0800 0600 0420 Chemistry Sodium (137 - 145 mmol/L) 135 L Potassium (3.5 - 5.1 mmol/L) 5.4 H Chloride (98 - 107 mmol/L) 102 Carbon Dioxide (22 - 30 mmol/L) 21 L Anion Gap (5 - 16) 12 BUN (7 - 17 mg/dL) 74 H Creatinine (0.5 - 1.0 mg/dL) 5.3 *H Estimated GFR (>60 ml/min) 8 L BUN/Creatinine Ratio (7 - 25 %) 14.0 Calcium (8.4 - 10.2 mg/dL) 8.3 L Coagulation PT (9.4 - 12.5 SEC) 16.6 H INR (0.90 - 1.19) 1.59 H APTT (25 - 37 SEC) Cancelled 37 Hematology CBC w Diff MAN DIFF ORDERED WBC (4.8 - 10.8 /CUMM) 17.1 H RBC (4.20 - 5.40 /CUMM) 3.01 L Hgb (12.0 - 16.0 G/DL) 9.1 L Hct (37 - 47 %) 28.6 L MCV (81.0 - 99.0 FL) 95.0 MCH (27.0 - 31.0 PG) 30.3 RDW (11.5 - 14.5 %) 15.6 H Plt Count (130 - 400 /CUMM) 222 MPV (7.4 - 10.4 FL) 8.6 Gran % (42.2 - 75.2 %) 95.3 H Lymphocytes % (20.5 - 51.1 %) 2.1 L Monocytes % (1.7 - 9.3 %) 2.6 Eosinophils % (0 - 5 %) 0 Basophils % (0.0 - 2.0 %) 0 L Absolute Granulocytes (1.4 - 6.5 /CUMM) 16.3 H Absolute Lymphocytes (1.2 - 3.4 /CUMM) 0.4 L Absolute Monocytes (0.10 - 0.60 /CUMM) 0.5 Absolute Eosinophils (0.0 - 0.7 /CUMM) 0 Absolute Basophils (0.0 - 0.2 /CUMM) 0 Platelet Estimate (ADEQUATE) ADEQUATE Hypochromic-Microcytic 1+ Poikilocytosis 1+ Ovalocytes 1+ PUBS MCHC (33.0 - 37.0 G/DL) 31.9 L 12/19 12/19 12/18 1200 0555 1855 Chemistry Sodium (137 - 145 mmol/L) 136 L Potassium (3.5 - 5.1 mmol/L) 4.6 Chloride (98 - 107 mmol/L) 103 Carbon Dioxide (22 - 30 mmol/L) 21 L Anion Gap (5 - 16) 12 BUN (7 - 17 mg/dL) 51 H Creatinine (0.5 - 1.0 mg/dL) 4.2 H Estimated GFR (>60 ml/min) 11 L BUN/Creatinine Ratio (7 - 25 %) 12.1 Coagulation PT (9.4 - 12.5 SEC) Cancelled 16.9 H 19.4 H INR (0.90 - 1.19) Cancelled 1.62 H 1.86 H APTT (25 - 37 SEC) 42 H Hematology CBC w Diff NO MAN DIFF REQ WBC (4.8 - 10.8 /CUMM) 16.7 H RBC (4.20 - 5.40 /CUMM) 3.42 L Hgb (12.0 - 16.0 G/DL) 10.4 L Hct (37 - 47 %) 32.3 L MCV (81.0 - 99.0 FL) 94.4 MCH (27.0 - 31.0 PG) 30.5 RDW (11.5 - 14.5 %) 15.7 H Plt Count (130 - 400 /CUMM) 225 MPV (7.4 - 10.4 FL) 8.1 Gran % (42.2 - 75.2 %) 88.9 H Lymphocytes % (20.5 - 51.1 %) 4.3 L Monocytes % (1.7 - 9.3 %) 4.9 Eosinophils % (0 - 5 %) 0.5 Basophils % (0.0 - 2.0 %) 1.4 Absolute Granulocytes (1.4 - 6.5 /CUMM) 14.9 H Absolute Lymphocytes (1.2 - 3.4 /CUMM) 0.7 L Absolute Monocytes (0.10 - 0.60 /CUMM) 0.8 H Absolute Eosinophils (0.0 - 0.7 /CUMM) 0.1 Absolute Basophils (0.0 - 0.2 /CUMM) 0.2 PUBS MCHC (33.0 - 37.0 G/DL) 32.3 L 12/18 12/18 12/18 1842 1830 1810 Coagulation PT Cancelled Cancelled Cancelled INR Cancelled Cancelled Cancelled 12/18 12/17 12/17 0625 2300 1111 Chemistry Sodium (137 - 145 mmol/L) 139 139 Potassium (3.5 - 5.1 mmol/L) 4.2 3.8 Chloride (98 - 107 mmol/L) 101 101 Carbon Dioxide (22 - 30 mmol/L) 26 26 Anion Gap (5 - 16) 12 12 BUN (7 - 17 mg/dL) 32 H 27 H Creatinine (0.5 - 1.0 mg/dL) 3.0 H 2.3 H Estimated GFR (>60 ml/min) 16 L 21 L BUN/Creatinine Ratio (7 - 25 %) 10.7 11.7 Coagulation PT (9.4 - 12.5 SEC) 26.3 H INR (0.90 - 1.19) 2.53 H Hematology CBC w Diff NO MAN DIFF REQ WBC (4.8 - 10.8 /CUMM) 15.2 H RBC (4.20 - 5.40 /CUMM) 3.61 L Hgb (12.0 - 16.0 G/DL) 11.1 L Hct (37 - 47 %) 34.5 L MCV (81.0 - 99.0 FL) 95.7 MCH (27.0 - 31.0 PG) 30.7 RDW (11.5 - 14.5 %) 15.4 H Plt Count (130 - 400 /CUMM) 224 MPV (7.4 - 10.4 FL) 8.3 Gran % (42.2 - 75.2 %) 86.4 H Lymphocytes % (20.5 - 51.1 %) 7.1 L Monocytes % (1.7 - 9.3 %) 5.9 Eosinophils % (0 - 5 %) 0.6 Basophils % (0.0 - 2.0 %) 0 L Absolute Granulocytes (1.4 - 6.5 /CUMM) 13.2 H Absolute Lymphocytes (1.2 - 3.4 /CUMM) 1.1 L Absolute Monocytes (0.10 - 0.60 /CUMM) 0.9 H Absolute Eosinophils (0.0 - 0.7 /CUMM) 0.1 Absolute Basophils (0.0 - 0.2 /CUMM) 0 PUBS MCHC (33.0 - 37.0 G/DL) 32.1 L Urines Urine Color Cancelled Urine Clarity Cancelled Urine pH Cancelled Ur Specific [place] Cancelled Urine Protein Cancelled Urine Ketones Cancelled Urine Nitrite Cancelled Urine Bilirubin Cancelled Urine Urobilinogen Cancelled Ur Leukocyte Esterase Cancelled Ur Microscopic Cancelled Urine Hemoglobin Cancelled Urine Glucose Cancelled Imaging/Other Studies: XR CHEST CLINICAL INFORMATION: Fall, pain, trauma COMPARISON: CT 11/26/2016 TECHNIQUE: AP view of the chest was obtained. FINDINGS: Left-sided pacemaker lead tips overlie the right ventricle and coronary sinus. Lung volumes are symmetric. No acute consolidation is seen. No evidence of pneumothorax, significant pleural effusion, or pulmonary edema. Calcific densities along the posterior right pleura are not as well-seen as on recent CT. The cardiac silhouette remains prominent. No acute osseous findings are seen. IMPRESSION: No acute cardiopulmonary findings.
--- NOTE | 2016-12-20 10:32 | NUR ---
Physical Therapy: Attempted to see pt this morning for evaluation. Pt currently RUBI at HD. Will follow up this afternoon as pt is appropriate. Thank you.
--- NOTE | 2016-12-20 10:43 | PN- Att Addend ---
Attending Addendum Attending Brief Note Patient in the hemodialysis suite, still in a lot of pain to the point that hemodialysis is being stopped. Vital signs are stable she's a febrile. No major changes on physical patient on heparin and probably can start Coumadin and monitor PT and PTTs. Continue pain management PT eval. When ready and was sent to short-term rehabilitation. 24 TOTALS 12/20 0000 12/19 0000 Intake Total 720.2 2000 Output Total 440 Balance 720.2 1560 Intake, IV 240.2 20 Intake, Oral 480 1980 Number 3 2 Bowel Movements Output, Urine 440 Patient 170 lb 170 lb Weight Current Medications Sig/Tripp Start time Last Medication Dose Route Stop Time Status Admin Acetaminophen 650 MG Q6P PRN 12/19 1700 AC PO Acetaminophen 650 MG Q6P PRN 12/17 1145 DC PO Albuterol Sulfate 3 ML EVERY 4 HRS/AWAKE 12/19 2000 AC 12/20 INH 0945 Albuterol Sulfate 2 PUF Q4-6 PRN PRN 12/19 1700 AC INH Albuterol Sulfate 3 ML EVERY 4 HRS/AWAKE 12/17 1600 DC 12/19 INH 1147 Albuterol Sulfate 2 PUF Q4-6 PRN PRN 12/17 1400 DC INH Amlodipine Besylate 10 MG AT BEDTIME 12/19 2200 AC 12/19 PO 2133 Amlodipine Besylate 10 MG AT BEDTIME 12/17 2200 DC 12/18 PO 2155 Bisacodyl 5 MG AT BEDTIME 12/19 2200 AC 12/19 PO 2132 Bisacodyl 5 MG AT BEDTIME 12/18 2200 DC 12/18 PO 2155 Budesonide/ 2 PUF BID 12/19 2200 AC 12/19 Formoterol Fumarate INH 2131 Budesonide/ 2 PUF BID 12/17 2200 DC 12/19 Formoterol Fumarate INH 0859 Cholecalciferol 1,000 IU DAILY 12/20 1000 AC PO Cholecalciferol 1,000 IU DAILY 12/18 1000 DC 12/19 PO 0859 Diltiazem HCl 120 MG DAILY 12/20 1000 AC PO Diltiazem HCl 120 MG DAILY 12/17 1224 DC 12/19 PO 0858 Epoetin [place] 4,000 UNIT MoWeFr 12/20 1653 AC IV Epoetin [place] 4,000 UNIT MoWeFr 12/17 2000 DC IV Fentanyl Citrate 100 MCG .[facility] 12/19 1453 DC IM 12/19 1454 Fentanyl Citrate 100 MCG .STK-MED ONE 12/19 1442 DC IM 12/19 1443 Furosemide 40 MG 7:30 AM, & 4:30 PM 12/20 0730 AC PO Furosemide 40 MG 7:30 AM, & 4:30 PM 12/17 1630 DC 12/19 PO 0854 Heparin Sodium 5,800 UNIT ONCE ONE 12/20 0540 DC 12/20 (Porcine) IV 12/20 0541 0530 Heparin Sodium/ 25,000 UNIT Q24H 12/19 2100 AC 12/19 Dextrose IV 2209 Dextrose/Water 500 ML Heparin Sodium/ 25,000 UNIT Q24H 12/18 2300 NE 12/19 Dextrose IV 0011 Dextrose/Water 500 ML Hydromorphone HCl 1 MG Q6P PRN 12/19 1700 AC 12/20 IV 0430 Hydromorphone HCl 1 MG Q6P PRN 12/18 1445 DC 12/19 IV 1121 Lorazepam 2 MG QPM 12/19 2200 12/19 PO 2132 Lorazepam 0.25 MG ONCE PRN 12/19 1200 DC 12/19 IV 1321 Lorazepam 2 MG QPM 12/17 2200 NE 12/18 PO 2154 Midazolam HCl 2 MG .STK-MED ONE 12/19 1442 DC IM 12/19 1443 Multivitamins 1 TAB DAILY 12/20 1000 AC PO Multivitamins 1 TAB DAILY 12/18 1000 DC 12/19 PO 0858 Oxycodone HCl 15 MG Q6 PRN 12/19 1700 AC 12/20 PO 0920 Oxycodone HCl 15 MG Q6 PRN 12/17 1545 NE 12/19 PO 0901 Paricalcitol 2 MCG MoWeFr 12/20 1653 AC IV Paricalcitol 2 MCG MoWeFr 12/17 2000 DC IV Polyethylene Glycol 17 GM DAILY 12/20 1000 AC PO Polyethylene Glycol 17 GM DAILY 12/18 2115 DC 12/18 PO 2222 Prednisone 10 MG DAILY 12/20 1000 AC PO Prednisone 10 MG DAILY 12/18 1000 DC 12/19 PO 12/22 1100 0858 Senna 187 MG AT BEDTIME 12/19 2200 AC 12/19 PO 2132 Senna 187 MG AT BEDTIME 12/18 2200 DC 12/18 PO 2222 Sertraline HCl 100 MG DAILY 12/20 1000 AC PO Sertraline HCl 100 MG DAILY 12/18 1000 DC 12/19 PO 0859 Sevelamer HCl 2,400 MG TIDAC 12/19 1700 AC 12/19 PO 1846 Sevelamer HCl 2,400 MG TIDAC 12/17 1200 DC 12/19 PO 0855 Tiotropium [place] 1 PUF DAILY 12/20 1000 AC INH Tiotropium [place] 1 PUF DAILY 12/18 1000 DC 12/19 INH 0859 Laboratory Tests 12/20/16 0800: Calcium 8.3 L 12/20/16 0600: APTT Cancelled 12/20/16 0420: Anion Gap 12, Estimated GFR 8 L, BUN/Creatinine Ratio 14.0, PT 16.6 H, INR 1.59 H, APTT 37, CBC w Diff MAN DIFF ORDERED, RBC 3.01 L, MCV 95.0, MCH 30.3, RDW 15.6 H, MPV 8.6, Gran % 95.3 H, Lymphocytes % 2.1 L, Monocytes % 2.6, Eosinophils % 0, Basophils % 0 L, Absolute Granulocytes 16.3 H, Absolute Lymphocytes 0.4 L, Absolute Monocytes 0.5, Absolute Eosinophils 0, Absolute Basophils 0, Platelet Estimate ADEQUATE, Hypochromic-Microcytic 1+, Poikilocytosis 1+, Ovalocytes 1+, PUBS MCHC 31.9 L 12/19/16 1200: PT Cancelled, INR Cancelled 12/19/16 0555: Anion Gap 12, Estimated GFR 11 L, BUN/Creatinine Ratio 12.1, PT 16.9 H, INR 1.62 H, APTT 42 H, CBC w Diff NO MAN DIFF REQ, RBC 3.42 L, MCV 94.4, MCH 30.5 , RDW 15.7 H, MPV 8.1, Gran % 88.9 H, Lymphocytes % 4.3 L, Monocytes % 4.9, Eosinophils % 0.5, Basophils % 1.4, Absolute Granulocytes 14.9 H, Absolute Lymphocytes 0.7 L, Absolute Monocytes 0.8 H, Absolute Eosinophils 0.1, Absolute Basophils 0.2, PUBS MCHC 32.3 L 12/18/16 1855: PT 19.4 H, INR 1.86 H 12/18/16 1842: PT Cancelled, INR Cancelled 12/18/16 1830: PT Cancelled, INR Cancelled 12/18/16 1810: PT Cancelled, INR Cancelled 12/18/16 0625: Anion Gap 12, Estimated GFR 16 L, BUN/Creatinine Ratio 10.7, PT 26.3 H, INR 2.53 H, CBC w Diff NO MAN DIFF REQ, RBC 3.61 L, MCV 95.7, MCH 30.7, RDW 15.4 H, MPV 8.3, Gran % 86.4 H, Lymphocytes % 7.1 L, Monocytes % 5.9, Eosinophils % 0.6, Basophils % 0 L, Absolute Granulocytes 13.2 H, Absolute Lymphocytes 1.1 L, Absolute Monocytes 0.9 H, Absolute Eosinophils 0.1, Absolute Basophils 0, PUBS MCHC 32.1 L 12/17/16 2300: Anion Gap 12, Estimated GFR 21 L, BUN/Creatinine Ratio 11.7 12/17/16 1111: Urine Color Cancelled, Urine Clarity Cancelled, Urine pH Cancelled, Ur Specific [place] Cancelled, Urine Protein Cancelled, Urine Ketones Cancelled, Urine Nitrite Cancelled, Urine Bilirubin Cancelled, Urine Urobilinogen Cancelled, Ur Leukocyte Esterase Cancelled, Ur Microscopic Cancelled, Urine Hemoglobin Cancelled, Urine Glucose Cancelled
--- NOTE | 2016-12-20 11:33 | NUR ---
PT ARRIVED VIA PTS OWN BED TO DIALYSIS, C/O 08/02 PAIN AND EPISODE OF INCONTIENCE, CLEANED UP PATIENT, ADMINISTERED IV PAIN MEDICATION, VSS, WILL CONTINUE TO MONITOR.
[2016-12-20 14:17] LABS: PTT 75 SEC (25-37)
--- NOTE | 2016-12-20 14:29 | NUR ---
PT PTT WAS DRAWN BY [employer] OPERATOR @ 10:30, PTT CAME BACK >120 PRESUMED TO BE INVALID, REDRAWN @ 1300, MD LEON AWARE. WILL CONTINUE TO MONITOR.
[2016-12-20 14:54] VITALS: BP 116/82
--- NOTE | 2016-12-20 18:41 | PN- Cardiology ---
Subjective Subjective: Postoperative day 1 s/p orthopedic surgery (IM nail left hip), placed on IV heparin last night, and received first dosage of warfarin 3 mg this evening. She is still in a lot of pain postoperatively is being managed. Hemodialysis had to be cut short earlier today very to her being in considerable pain becoming hypotensive. No complaints at present and denies any chest discomfort, palpitations, shortness of breath, etc. Objective Vital Signs and I&Os Vital Signs Date Time Temp Pulse Resp B/P Pulse O2 O2 Flow FiO2 Ox Delivery Rate 12/20 1454 98.0 68 22 116/82 96 12/20 1124 Nasal 3.0L Cannula 12/20 0945 96 Nasal 3.0L Cannula 12/20 0800 Nasal 3.0L Cannula 12/20 0621 97.9 73 18 118/66 96 Nasal 3.0L Cannula 12/20 0209 97.8 73 20 108/64 95 Nasal Cannula 12/20 0000 95 Nasal 3.0L Cannula 12/19 2216 98.1 69 18 112/60 95 Nasal Cannula 12/19 2133 98.1 69 18 112/60 12/19 1910 92 Nasal 3.0L Cannula Intake & Output 12/20 1600 12/20 0800 12/20 0000 12/19 1600 12/19 0800 12/19 0000 Intake Total 547.2 357.6 512.2 208 480 Output Total 200 0 Balance 347.2 357.6 512.2 208 480 Intake, IV 307.2 257.6 32.2 208 Intake, Oral 240 100 480 480 Number 1 0 1 1 1 2 Bowel Movements Output, Urine 200 0 Patient 170 lb 170 lb 170 lb 170 lb Weight Physical Exam: Well-developed, pale-appearing female in no acute distress with nasal oxygen in place. Vital signs: See above. Lungs: Decreased breath sounds otherwise clear. Heart: S1, S2 appropriate mechanical valve sounds grade 2/6 systolic murmur. Abdomen: Soft, nontender, positive bowel sounds. Extremities: 1+ edema. Assessment/Plan Assessment/Plan Mrs. Freeman is a 66-year-old female with multiple medical problems s/p orthopedic surgery postoperative day #1 with a history of a mechanical mitral valve prosthesis placed in February 1996, chronic atrial fibrillation with difficult to control ventricular response rates that led to placement of a biventricular pacemaker following AV node ablation, previous TIA on warfarin anticoagulation, and chronic multifactorial anemia. She is on bridging anticoagulation given her high risk of thromboembolic events with IV heparin and initiation of warfarin anticoagulation this evening. Once her INR is therapeutic (2.5-3.5) for 48 hours would discontinue the IV heparin and continue warfarin anticoagulation. Continue to follow-up H/H. Continue telemetry? Yes
[2016-12-20 21:57] VITALS: BP 110/48
[2016-12-21 03:06] LABS: PTT 93 SEC (25-37)
[2016-12-21 07:31] VITALS: BP 110/60
--- NOTE | 2016-12-21 07:49 | PN- Orthopedic ---
Subjective Subjective: NAEO. No new c/o. Pain tolerable with pain meds. Tolerating PO without n/v. + flatus, +BM. She was OOB with PT yesterday, only able to take a few steps. Denies CP/SOB. Objective Vital Signs and I&Os Vital Signs Date Time Temp Pulse Resp B/P Pulse O2 O2 Flow FiO2 Ox Delivery Rate 12/21 0731 97.6 74 20 110/60 97 Nasal 3.0L Cannula 12/21 0000 Nasal 3.0L Cannula 12/20 2226 75 110/60 12/20 2157 97.8 75 20 110/48 98 Nasal Cannula 12/20 1830 98 Nasal 4.0L Cannula 12/20 1454 98.0 68 22 116/82 96 12/20 1124 Nasal 3.0L Cannula 12/20 0945 96 Nasal 3.0L Cannula 12/20 0800 Nasal 3.0L Cannula Intake & Output 12/21 0800 12/21 0000 12/20 1600 12/20 0800 12/20 0000 12/19 1600 Intake Total 670 547.2 357.6 512.2 Output Total 200 0 Balance 670 347.2 357.6 512.2 Intake, IV 310 307.2 257.6 32.2 Intake, Oral 360 240 100 480 Number 1 0 1 1 Bowel Movements Output, Urine 200 0 Patient 173 lb 170 lb 170 lb Weight Physical Exam: General: NAD, comfortable, A&Ox3 Chest: NRD, breathing comfortably on 3L NC. regular irregular. Abdomen: soft, nontender, nondistended. Ext: Left hip/thigh incisions intact with zeinab with some sanguineous drainage. Left thigh swollen but compartments soft. No signs of infection. No calve swelling/TTP, neurovascularly intact bilateral lower extremities Current Medications: Current Medications Sig/Tripp Start time Last Medication Dose Route Stop Time Status Admin Acetaminophen 650 MG Q6P PRN 12/19 170 AC PO Albuterol Sulfate 3 ML EVERY 4 HRS/AWAKE 12/19 1999 AC 12/20 INH 2215 Albuterol Sulfate 2 PUF Q4-6 PRN PRN 12/19 1699 AC INH Amlodipine Besylate 10 MG AT BEDTIME 12/19 2199 AC 12/20 PO 222 Bisacodyl 5 MG AT BEDTIME 12/19 2199 AC 12/20 PO 222 Budesonide/ 2 PUF BID 12/19 2200 AC 12/20 Formoterol Fumarate INH 2228 Cholecalciferol 1,000 IU DAILY 12/20 1000 AC 12/20 PO 1100 Diltiazem HCl 120 MG DAILY 12/20 1000 AC 12/20 PO 1111 Epoetin Jerson 4,000 UNIT MoWeFr 12/20 1653 AC IV Furosemide 40 MG 7:30 AM, & 4:30 PM 12/20 0730 AC 12/21 PO 0623 Heparin Sodium/ 25,000 UNIT Q24H 12/19 2100 AC 12/21 Dextrose IV 0352 Dextrose/Water 500 ML Hydromorphone HCl 1 MG Q4P PRN 12/20 1415 AC 12/21 IV 0627 Hydromorphone HCl 1 MG ONCE ONE 12/20 1315 DC 12/20 IV 12/20 1316 1330 Hydromorphone HCl 1 MG Q6P PRN 12/19 1700 DC 12/20 IV 1100 Lorazepam 2 MG QPM 12/19 2200 AC 12/20 PO 2226 Multivitamins 1 TAB DAILY 12/20 1000 AC 12/20 PO 1100 Oxycodone HCl 15 MG Q6 PRN 12/19 1700 AC 12/20 PO 0920 Paricalcitol 2 MCG MoWeFr 12/20 1653 AC IV Polyethylene Glycol 17 GM DAILY 12/20 1000 AC PO Prednisone 10 MG DAILY 12/20 1000 AC 12/20 PO 1100 Senna 187 MG AT BEDTIME 12/19 2200 AC 12/20 PO 2226 Sertraline HCl 100 MG DAILY 12/20 1000 AC 12/20 PO 1100 Sevelamer HCl 2,400 MG TIDAC 12/19 1700 AC 12/20 PO 1655 Tiotropium [place] 1 PUF DAILY 12/20 1000 AC 12/20 INH 1101 Warfarin Sodium 3 MG .STK-MED ONE 12/20 1653 DC PO 12/20 1654 Warfarin Sodium 3 MG ONCE ONE 12/20 1430 DC 12/20 PO 12/20 1431 1656 Results Last 48 Hours of Labs: Laboratory Tests 12/21 12/20 12/20 12/20 12/20 0140 1300 1100 0800 0654 Chemistry Calcium (8.4 - 10.2 mg/dL) 8.3 L Coagulation PT Cancelled Cancelled INR Cancelled Cancelled APTT (25 - 37 SEC) 93 H 75 H Cancelled 12/20 12/20 0600 0420 Chemistry Sodium (137 - 145 mmol/L) 135 L Potassium (3.5 - 5.1 mmol/L) 5.4 H Chloride (98 - 107 mmol/L) 102 Carbon Dioxide (22 - 30 mmol/L) 21 L Anion Gap (5 - 16) 12 BUN (7 - 17 mg/dL) 74 H Creatinine (0.5 - 1.0 mg/dL) 5.3 *H Estimated GFR (>60 ml/min) 8 L BUN/Creatinine Ratio (7 - 25 %) 14.0 Coagulation PT (9.4 - 12.5 SEC) 16.6 H INR (0.90 - 1.19) 1.59 H APTT (25 - 37 SEC) Cancelled 37 Hematology CBC w Diff MAN DIFF ORDERED WBC (4.8 - 10.8 /CUMM) 17.1 H RBC (4.20 - 5.40 /CUMM) 3.01 L Hgb (12.0 - 16.0 G/DL) 9.1 L Hct (37 - 47 %) 28.6 L MCV (81.0 - 99.0 FL) 95.0 MCH (27.0 - 31.0 PG) 30.3 RDW (11.5 - 14.5 %) 15.6 H Plt Count (130 - 400 /CUMM) 222 MPV (7.4 - 10.4 FL) 8.6 Gran % (42.2 - 75.2 %) 95.3 H Lymphocytes % (20.5 - 51.1 %) 2.1 L Monocytes % (1.7 - 9.3 %) 2.6 Eosinophils % (0 - 5 %) 0 Basophils % (0.0 - 2.0 %) 0 L Absolute Granulocytes (1.4 - 6.5 /CUMM) 16.3 H Absolute Lymphocytes (1.2 - 3.4 /CUMM) 0.4 L Absolute Monocytes (0.10 - 0.60 /CUMM) 0.5 Absolute Eosinophils (0.0 - 0.7 /CUMM) 0 Absolute Basophils (0.0 - 0.2 /CUMM) 0 Platelet Estimate (ADEQUATE) ADEQUATE Hypochromic-Microcytic 1+ Poikilocytosis 1+ Ovalocytes 1+ PUBS MCHC (33.0 - 37.0 G/DL) 31.9 L 12/19 1200 Coagulation PT Cancelled INR Cancelled Assessment/Plan Assessment/Plan 66yo F POD#2 s/p left hip IMHS. AVSS, stable from orthopedic standpoint. - daily dressing changes or PRN by RN - Pain control - OOB and ambulate with PT - ac per primary - care per primary team - f/u with Nicanor in office, call [phone] to schedule appointment
--- NOTE | 2016-12-21 08:09 | Patient Discharge Instructions ---
Discharge Instructions General Discharge Information You were seen/treated for: Fracture of the Femur Special Instructions: Please make an appointment to see: 1) Your PCP within one week from discharge. 2) Your embossing machine operator within one week from discharge 3) Your Orthopedic surgeon within one week from discharge 4)please recheck CBC every alternate day till it stabilizes. Diet Recommended Diet: Renal Dialysis Activity Activity Self Limited: Yes Acute Coronary Syndrome Inclusion Criteria At DC or during hospital stay patient has or had the following: ACS DIAGNOSIS No Discharge Core Measures Meds if any: Prescribed or Continued at Discharge Meds if any: NOT Prescribed or Continued at Discharge Congestive Heart Failure Inclusion Criteria At DC or during hospital stay patient has or had the following: CHF DIAGNOSIS No Discharge Core Measures Meds if any: Prescribed or Continued at Discharge Meds if any: NOT Prescribed or Continued at Discharge Cerebrovascular accident Inclusion Criteria At DC or during hospital stay patient has or had the following: CVA/TIA Diagnosis No Discharge Core Measures Meds if any: Prescribed or Continued at Discharge Meds if any: NOT Prescribed or Continued at Discharge Venous thromboembolism Inclusion Criteria VTE Diagnosis No VTE Type NONE VTE Confirmed by (Test) NONE Discharge Core Measures - Per Current guidelines, there needs to be overlap - treatment for the first 5 days of Warfarin therapy. - If discharged on Warfarin prior to 5 days of - overlap therapy, the patient will need to be - assessed for post discharge needs including - *Post discharge parental anticoagulation - *Warfarin and/or parental anticoagulation education - *Follow up date to check INR post discharge At least 5 days overlap therapy as Inpatient No Meds if any: Prescribed or Continued at Discharge Note: Overlap Therapy is Warfarin and Anticoagulant Meds if any: NOT Prescribed or Continued at Discharge
--- NOTE | 2016-12-21 08:09 | PN- Housestaff ---
Subjective Follow-up For: LEFT INTERTROCHANTERIC FRACTURE Complaints: pain scale (0-10) Subjective: I saw and examined the patient today morning. She is lying on the bed, reports her pain is well controlled. Appears pale, but no shortness of breath, chest pain. Able to tolerate food well, having bowel movement regularly. No obvious source of bleeding evident. Review of Systems Constitutional: Reports: see HPI, malaise, weakness. Comments: ROS negative except the above. Objective Last 24 Hrs of Vital Signs/I&O Vital Signs Date Time Temp Pulse Resp B/P Pulse O2 O2 Flow FiO2 Ox Delivery Rate 12/21 0731 97.6 74 20 110/60 97 Nasal 3.0L Cannula 12/21 0000 Nasal 3.0L Cannula 12/20 2226 75 110/60 12/20 2157 97.8 75 20 110/48 98 Nasal Cannula 12/20 1830 98 Nasal 4.0L Cannula 12/20 1454 98.0 68 22 116/82 96 12/20 1124 Nasal 3.0L Cannula 12/20 0945 96 Nasal 3.0L Cannula Intake & Output 12/21 1600 12/21 0800 12/21 0000 Intake Total 670 Output Total Balance 670 Intake, IV 310 Intake, Oral 360 Patient 78.471 kg Weight Physical Exam General Appearance: Alert, Oriented X3, Cooperative, No Acute Distress Skin: No Rashes, No Breakdown HEENT: Atraumatic, PERRLA, Pale mucous membranes. Neck: Supple Cardiovascular: Normal S1, Normal S2, irregularly irregular Lungs: Clear to Auscultation, Normal Air Movement Abdomen: Normal Bowel Sounds, Soft, No Tenderness Neurological: Normal Tone, Sensation Intact Extremities: No Clubbing, No Cyanosis, No Edema, dressing evident on the left hip region Vascular: Normal Pulses Current Medications: Current Medications Sig/Tripp Start time Last Medication Dose Route Stop Time Status Admin Acetaminophen 650 MG Q6P PRN 12/19 170 AC PO Albuterol Sulfate 3 ML EVERY 4 HRS/AWAKE 12/19 1999 AC 12/21 INH 0844 Albuterol Sulfate 2 PUF Q4-6 PRN PRN 12/19 170 AC INH Amlodipine Besylate 10 MG AT BEDTIME 12/19 2199 AC 12/20 PO 222 Bisacodyl 5 MG AT BEDTIME 12/19 2199 AC 12/20 PO 222 Budesonide/ 2 PUF BID 12/19 2200 AC 12/21 Formoterol Fumarate INH 0842 Cholecalciferol 1,000 IU DAILY 12/20 1000 AC 12/21 PO 0834 Diltiazem HCl 120 MG DAILY 12/20 1000 AC 12/21 PO 0834 Epoetin [place] 4,000 UNIT MoWeFr 12/20 1653 AC IV Furosemide 40 MG 7:30 AM, & 4:30 PM 12/20 0730 AC 12/21 PO 0623 Heparin Sodium/ 25,000 UNIT Q24H 12/19 2100 AC 12/21 Dextrose IV 0352 Dextrose/Water 500 ML Hydromorphone HCl 1 MG Q4P PRN 12/20 1415 AC 12/21 IV 0627 Hydromorphone HCl 1 MG ONCE ONE 12/20 1315 DC 12/20 IV 12/20 1316 1330 Hydromorphone HCl 1 MG Q6P PRN 12/19 1700 DC 12/20 IV 1100 Lorazepam 2 MG QPM 12/19 2200 AC 12/20 PO 2226 Multivitamins 1 TAB DAILY 12/20 1000 AC 12/21 PO 0834 Oxycodone HCl 15 MG Q6 PRN 12/19 1700 AC 12/21 PO 0834 Paricalcitol 2 MCG MoWeFr 12/20 1653 AC IV Polyethylene Glycol 17 GM DAILY 12/20 1000 AC PO Prednisone 10 MG DAILY 12/20 1000 AC 12/21 PO 0833 Senna 187 MG AT BEDTIME 12/19 2200 AC 12/20 PO 2226 Sertraline HCl 100 MG DAILY 12/20 1000 AC 12/21 PO 0833 Sevelamer HCl 2,400 MG TIDAC 12/19 1700 AC 12/21 PO 0832 Tiotropium [place] 1 PUF DAILY 12/20 1000 AC 12/21 INH 0841 Warfarin Sodium 2 MG ONCE ONE 12/21 1700 CAN PO 12/21 1701 Warfarin Sodium 3 MG .STK-MED ONE 12/20 1653 DC PO 12/20 1654 Warfarin Sodium 3 MG ONCE ONE 12/20 1430 DC 12/20 PO 12/20 1431 1656 Last 24 Hrs of Lab/Thien Results Last 24 Hrs of Labs/Mics: Laboratory Tests 12/21/16 0930: APTT 50 H 12/21/16 0720: Anion Gap 13, Estimated GFR 11 L, BUN/Creatinine Ratio 13.1, PT 32.7 H, INR 3.15 H, CBC w Diff MAN DIFF ORDERED, RBC 2.08 L, MCV 94.6, MCH 30.7, RDW 15.3 H, MPV 9.6, Gran % 86.8 H, Lymphocytes % 5.7 L, Monocytes % 7.5, Eosinophils % 0, Basophils % 0 L, Absolute Granulocytes 15.3 H, Segmented Neutrophils 82 H, Band Neutrophils 2, Absolute Lymphocytes 1.0 L, Lymphocytes 7 L, Monocytes 8, Absolute Monocytes 1.3 H, Absolute Eosinophils 0, Absolute Basophils 0, Metamyelocytes 1, Nucleated RBCs 1 H, Platelet Estimate ADEQUATE, Polychromasia , Hypochromic-Microcytic 2+, Poikilocytosis 1+, Basophilic Stippling , Anisocytosis 1+, PUBS MCHC 32.5 L 12/21/16 0140: APTT 93 H 12/20/16 1300: APTT 75 H 12/20/16 1100: PT Cancelled, INR Cancelled, APTT Cancelled Lines/Diet/Fluids Lines: peripheral lines Assessment/Plan Assessment: 66 years old F with PMH of COPD on home oxygen, hypertension, mitral valve stenosis S/P replacement 1995, A. fib on warfarin, CHF, hypertension who presented after sustaining a mechanical fall and having evidence of intertrochanteric fracture with mild displacement. Will go for surgical hip repair. Patient has ESRD on HD, fluid overloaded at presentation. Imaging Left hip X ray IMPRESSION: 1. Left hip: Mildly displaced intertrochanteric fracture of the left femur. 2. Left knee: No acute findings. Admitted to general medicine floor Problem list Left mildly displaced intertrochanteric fracture INR of 4.29 at presentation. She had a very complicated and extensive cardiac history to reverse her INR. Ortho following. Pain control with Hydromorphine 1mg Q6 and oxycodone 15mg Q6. Underwent left hip intramuscular nail placement IR guided. he was resumed on IV heparin after surgery. Once her INR is stable for 2days we will discontinue IV heparin. End-stage renal disease on hemodialysis Her K is 5.3 with Cr 4.7 at presentation. Underwent hemodialysis with epo 4000 units IV, Zemplar 2mcg IV. On 2gm sodium & potassium diet. On sevelamer 2400mg with meals. Her Cr post dialysis is 2.3.Yesterday her hemodialysis terminated because of pain, however her H&H dropped today requiring transfusion. May consider dialysis as per the transfusion requirement. Nephro following appreciate their recommendations. Permanent Atrial Fibrillation History of paroxysmal followed by permanent A.Fib with RVR , leading to AV node ablation (Aug 2010) and placement of Biventricular pacemaker placement complicated by splenic hematoma. On IV heparin after surgery. Received first dose of coumadin with INR of 3.15 today. However her H&H dropped significantly today. So we are currently holding off coumadin dosage and will continue with IV heaparin. Congestive Heart failure * Last ECHO was on 06/04/2015 showing concentric LVH with mild dilatation. EF - 50-55% Prosthetic mitral valves * History of Rheumatic heart disease with Mitral Stenosis S/P Mechanical valve replacement in february 1996. * Requires anticoagulation with goal INR of 2.5-3.5. COPD on home oxygen * Chronic and stable. * History of recurrent exacerbations complicated with spontaneous pneumothorax. * Currently on 3L oxygen. On chronic steroid therapy with prednisone 10mg. TRC and nebs Depression/Anxiety * Her home medications Sertraline 100mg, Ativan 2mg are continued. Hypertension * Her home medication Amlodipine 10mg is continued. DVT prophylaxis * IV heparin Code Status * DNR/DNI Problem List: 1. Chronic atrial fibrillation 2. Chronic respiratory failure 3. mitral valve repair 4. rheumatic heart disease 5. Dyspnea 6. Acute blood loss anemia Pain Ratin Pain Location: left hip Pain Goal: Pain 4 or less Pain Plan: Dilaudid 1mg Q4 and Oxycodon 15mg Q6 Tomorrow's Labs & Rationales: CBC to monitor H&H and platelets while on IV heparin BEP to monitor creatinine in ESRD patient on dialysis Consulting Request: Consulting Specialty: Orthopedics
--- NOTE | 2016-12-21 08:42 | Operative Report ---
Operative/Inv Procedure Report Surgery Date: 12/19/16 Name of Procedure: Intramedullary nail left hip Pre-Operative Diagnosis: Left hip intertrochanteric fracture Post-Operative Diagnosis: Same Estimated Blood Loss: less than 50ml Surgeon/Religion Department Chair: zia Anesthesia: laryngeal mask airway IV Fluids: See anesthesia record Implants: [place] gamma nail, short Drains: None Specimens: None Complications: None Condition: Stable Operative Indication: Patient is a 66-year-old female who had a mechanical fall resulting in a left intertrochanteric hip fracture. She was medically cleared and optimized by the medical team. Her INR normalized and she was taken operative room for fixation. Risks and benefits of the procedure were discussed with the patient detail. Operative/Procedure Note Note: Once informed consent was obtained and the correct limb was identified the patient was brought to operative room placed on the fracture table. After administration of general endotracheal stage of the patient's left leg was placed in the leg chase on the fracture table and the right leg was well-padded in the well-leg chase. Fluoroscopy was brought in and fracture reduction was performed and the fracture is reduced in AP and lateral planes. The left lower extremity was prepped and draped in usual sterile fashion. To begin the procedure a incision was made proximal to the greater trochanter and a guidewire was placed. The guidewire position on the tip of the greater greater trochanter was confirmed in AP and lateral planes. Guidewire was advanced into the proximal femur across the fracture site. The proximal femur was then reamed. A short gamma nail was assembled on the jig and placed on the femoral canal across the fracture site position of the femoral nail was confirmed in AP and lateral planes. Laxity was then placed across the femoral neck into the femoral head to fix the fracture. Vascular measurement was 80 mm. The triple reamer set to 80 mm and the guidewire was left in place as reaming took place. Position of the guidewire was in the center center position on AP and lateral planes and the femoral head. Laxity was placed through the femoral nail without complication. It was then locked in place with the set screw. Finally a distal locking screw was placed through the nail using the jig. The jig was disassembled and final x -rays in the AP and lateral planes confirmed excellent reduction of the fracture and position of the nail and lag screw. The wounds were irrigated and closed in layers. The skin was closed zeinab. Sterile dressing was applied and the patient was awakened taken recovery room in stable condition.
[2016-12-21 08:44] LABS: ABSOLUTE BASOPHIL COUNT 0 /CUMM (0.0-0.2); ABSOLUTE EOSINOPHIL COUNT 0 /CUMM (0.0-0.7); ABSOLUTE GRANULOCYTE CT 15.3 /CUMM (1.4-6.5)
[2016-12-21 08:55] LABS: PT 32.7 SEC (9.4-12.5)
[2016-12-21 08:57] LABS: ABSOLUTE MONOCYTE COUNT 1.3 /CUMM (0.10-0.60); BASOPHIL % 0 % (0.0-2.0); EOSINOPHIL % 0 % (0-5); GRANULOCYTE % 86.8 % (42.2-75.2); MEAN CORPUSCULAR HGB 30.7 PG (27.0-31.0); MEAN CORPUSCULAR HGB CONC 32.5 G/DL (33.0-37.0); MEAN CORPUSCULAR VOLUME 94.6 FL (81.0-99.0); MEAN PLATELET VOLUME 9.6 FL (7.4-10.4); PLATELET COUNT 240 /CUMM (130-400); RBC DISTRIBUTION WIDTH 15.3 % (11.5-14.5); WHITE BLOOD CELL COUNT 17.6 /CUMM (4.8-10.8)
[2016-12-21 09:00] LABS: HEMATOCRIT 19.7 % (37-47); RED BLOOD CELL CT 2.08 /CUMM (4.20-5.40)
--- NOTE | 2016-12-21 10:05 | PN- Att Addend ---
Attending Addendum Attending Brief Note Patient laying in bed comfortably in no respiratory distress still in some pain. And is very pale, noted dropping the hemoglobin and hematocrit. She was typed and screened to be transfused, will check with nephrology as appropriate time to give the transfusion and if it's necessary to wait until her hemodialysis time, also have orthopedics check the wound and make sure there is no obvious bleeding Current Medications Sig/Tripp Start time Last Medication Dose Route Stop Time Status Admin Acetaminophen 650 MG Q6P PRN 12/19 1700 AC PO Albuterol Sulfate 3 ML EVERY 4 HRS/AWAKE 12/19 2000 AC 12/21 INH 0844 Albuterol Sulfate 2 PUF Q4-6 PRN PRN 12/19 1700 AC INH Amlodipine Besylate 10 MG AT BEDTIME 12/19 2200 AC 12/20 PO 2226 Bisacodyl 5 MG AT BEDTIME 12/19 2200 AC 12/20 PO 2226 Budesonide/ 2 PUF BID 12/19 2200 AC 12/21 Formoterol Fumarate INH 0842 Cholecalciferol 1,000 IU DAILY 12/20 1000 AC 12/21 PO 0834 Diltiazem HCl 120 MG DAILY 12/20 1000 AC 12/21 PO 0834 Epoetin [place] 4,000 UNIT MoWeFr 12/20 1653 AC IV Furosemide 40 MG 7:30 AM, & 4:30 PM 12/20 0730 AC 12/21 PO 0623 Heparin Sodium/ 25,000 UNIT Q24H 12/19 2100 AC 12/21 Dextrose IV 0352 Dextrose/Water 500 ML Hydromorphone HCl 1 MG Q4P PRN 12/20 1415 AC 12/21 IV 0627 Hydromorphone HCl 1 MG ONCE ONE 12/20 1315 DC 12/20 IV 12/20 1316 1330 Hydromorphone HCl 1 MG Q6P PRN 12/19 1700 DC 12/20 IV 1100 Lorazepam 2 MG QPM 12/19 2200 AC 12/20 PO 2226 Multivitamins 1 TAB DAILY 12/20 1000 AC 12/21 PO 0834 Oxycodone HCl 15 MG Q6 PRN 12/19 1700 AC 12/21 PO 0834 Paricalcitol 2 MCG MoWeFr 12/20 1653 AC IV Polyethylene Glycol 17 GM DAILY 12/20 1000 AC PO Prednisone 10 MG DAILY 12/20 1000 AC 12/21 PO 0833 Senna 187 MG AT BEDTIME 12/19 2200 AC 12/20 PO 2226 Sertraline HCl 100 MG DAILY 12/20 1000 AC 12/21 PO 0833 Sevelamer HCl 2,400 MG TIDAC 12/19 1700 AC 12/21 PO 0832 Tiotropium [place] 1 PUF DAILY 12/20 1000 AC 12/21 INH 0841 Warfarin Sodium 2 MG ONCE ONE 12/21 1700 AC PO 12/21 1701 Warfarin Sodium 3 MG .STK-MED ONE 12/20 1653 DC PO 12/20 1654 Warfarin Sodium 3 MG ONCE ONE 12/20 1430 DC 12/20 PO 12/20 1431 1656 Vital Signs Date Time Temp Pulse Resp B/P Pulse O2 O2 Flow FiO2 Ox Delivery Rate 12/21 0849 96 Nasal 3.0L Cannula 12/21 0731 97.6 74 20 110/60 97 Nasal 3.0L Cannula
--- NOTE | 2016-12-21 10:31 | NUR ---
Physical Therapy: Pt's chart reviewed today prior to tx. Pt with low H&H and underwent a stat EKG. Will cx treatment at this time and follow up as appropriate. Thank you.
[2016-12-21 10:36] LABS: PTT 50 SEC (25-37)
--- NOTE | 2016-12-21 10:51 | Event Note ---
Event Note Event Note: Drop in H/H noted. Lis aware. Will repeat H/H now. If numbers look the same, patient will go for CAT scan of the abdomen and pelvis to r/o bleed, considering recent surgery. Nephro aware that the patient will need to be transfused. Depending on repeat H/H, patient might need dialysis today with transfusion, considering the number of units to be transfused. Cardiology, Dr. Nieves aware of the current H/H. Plan is to hold Coumadin for today. Continue Heparin for now and monitor H/H closely.
[2016-12-21 12:20] LABS: ABSOLUTE BASOPHIL COUNT 0 /CUMM (0.0-0.2); ABSOLUTE EOSINOPHIL COUNT 0 /CUMM (0.0-0.7); ABSOLUTE GRANULOCYTE CT 13.6 /CUMM (1.4-6.5); ABSOLUTE LYMPH COUNT 0.6 /CUMM (1.2-3.4); ABSOLUTE MONOCYTE COUNT 1.3 /CUMM (0.10-0.60); BASOPHIL % 0 % (0.0-2.0); EOSINOPHIL % 0 % (0-5); MEAN CORPUSCULAR HGB 30.4 PG (27.0-31.0); MEAN CORPUSCULAR HGB CONC 32.7 G/DL (33.0-37.0); MEAN CORPUSCULAR VOLUME 92.9 FL (81.0-99.0); MEAN PLATELET VOLUME 8.2 FL (7.4-10.4); PLATELET COUNT 233 /CUMM (130-400); RBC DISTRIBUTION WIDTH 15.4 % (11.5-14.5); RED BLOOD CELL CT 1.95 /CUMM (4.20-5.40); WHITE BLOOD CELL COUNT 15.5 /CUMM (4.8-10.8)
[2016-12-21 12:30] LABS: HEMATOCRIT 18.1 % (37-47)
[2016-12-21 13:02] LABS: GRANULOCYTE % 87.7 % (42.2-75.2)
--- NOTE | 2016-12-21 13:18 | NUR ---
Physical Therapy: Pt continues to present with decreased H&H. Not appropriate for skilled PT at this time. Will follow up as appropriate. Thank you.
--- NOTE | 2016-12-21 13:33 | PN- Nephrology ---
See Addendum Assessment/Plan Assessment: ESRD - Had dialysis today. Concern given ESRD that she may not be able to handle additional K with blood. Will need to do dialysis session today for clearance only (no fluid removal) while she is getting the blood (3U PRBC). Hip fracture c/b bleeding - Now s/p IM pinning. Now with post-op bleeding. Difficult situation in that she is being anticoagulated because she has a mechanical mitral valve. Heparin is being held after speaking with Cardiology. Continues on Epogen. Will be getting 3U PRBC. 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0L Cannula 12/20 2226 75 110/60 12/20 2157 97.8 75 20 110/48 98 Nasal Cannula 12/20 1830 98 Nasal 4.0L Cannula 12/20 1454 98.0 68 22 116/82 96 Intake & Output 12/21 1600 12/21 0400 12/20 1600 12/20 0400 12/19 1600 12/19 0400 Intake Total 540 670 904.8 512.2 208 480 Output Total 200 Balance 540 670 704.8 512.2 208 480 Intake, IV 300 310 564.8 32.2 208 Intake, Oral 240 360 340 480 480 Number 1 1 1 2 2 Bowel Movements Output, Urine 200 Patient 173 lb 170 lb 170 lb 170 lb Weight Physical Exam: Gen - OK appearing HEENT - supple CV - RRR Chest - clear anteriorly Abd - soft, nontender Ext - L hip without visible hematoma - wrapped Access - ANABELL AVF Current Medications: Current Medications Sig/Tripp Start time Last Medication Dose Route Stop Time Status Admin Acetaminophen 650 MG Q6P PRN 02/26 1700 AC PO Albuterol Sulfate 3 ML EVERY 4 HRS/AWAKE 12/19 2000 AC 12/21 INH 1137 Albuterol Sulfate 2 PUF Q4-6 PRN PRN 12/19 1700 AC INH Amlodipine Besylate 10 MG AT BEDTIME 12/19 2200 AC 12/20 PO 2226 Bisacodyl 5 MG AT BEDTIME 12/19 2200 AC 12/20 PO 2226 Budesonide/ 2 PUF BID 12/19 2200 AC 12/21 Formoterol Fumarate INH 0842 Cholecalciferol 1,000 IU DAILY 12/20 1000 AC 12/21 PO 0834 Diltiazem HCl 120 MG DAILY 12/20 1000 AC 12/21 PO 0834 Epoetin Jerson 4,000 UNIT MoWeFr 12/20 1653 AC IV Furosemide 40 MG 7:30 AM, & 4:30 PM 12/20 0730 AC 12/21 PO 0623 Heparin Sodium/ 25,000 UNIT Q24H 12/19 2100 DC 12/21 Dextrose IV 0352 Dextrose/Water 500 ML Hydromorphone HCl 1 MG Q4P PRN 12/20 1415 AC 12/21 IV 0627 Hydromorphone HCl 1 MG Q6P PRN 12/19 1700 DC 12/20 IV 1100 Lorazepam 0.5 MG ONE ONE 12/21 1145 DC 12/21 PO 12/21 1146 1213 Lorazepam 2 MG QPM 12/19 2200 AC 12/20 PO 2226 Multivitamins 1 TAB DAILY 12/20 1000 AC 12/21 PO 0834 Oxycodone HCl 15 MG Q6 PRN 12/19 1700 AC 12/21 PO 0834 Paricalcitol 2 MCG MoWeFr 12/20 1653 AC IV Polyethylene Glycol 17 GM DAILY 12/20 1000 AC PO Prednisone 10 MG DAILY 12/20 1000 AC 12/21 PO 0833 Senna 187 MG AT BEDTIME 12/19 2200 AC 12/20 PO 2226 Sertraline HCl 100 MG DAILY 12/20 1000 AC 12/21 PO 0833 Sevelamer HCl 2,400 MG TIDAC 12/19 1700 AC 12/21 PO 0832 Tiotropium Murphy 1 PUF DAILY 12/20 1000 AC 12/21 INH 0841 Warfarin Sodium 2 MG ONCE ONE 12/21 1700 CAN PO 12/21 1701 Warfarin Sodium 3 MG .STK-MED ONE 12/20 1653 DC PO 12/20 1654 Warfarin Sodium 3 MG ONCE ONE 12/20 1430 DC 12/20 PO 12/20 1431 1656 Results Pertinent Lab Results: Laboratory Tests 12/21 12/21 1210 0930 Chemistry Troponin I (< 0.11 ng/ml) 0.03 Coagulation APTT (25 - 37 SEC) 50 H Hematology CBC w Diff NO MAN DIFF REQ WBC (4.8 - 10.8 /CUMM) 15.5 H RBC (4.20 - 5.40 /CUMM) 1.95 L Hgb (12.0 - 16.0 G/DL) 5.9 *L Hct (37 - 47 %) 18.1 *L MCV (81.0 - 99.0 FL) 92.9 MCH (27.0 - 31.0 PG) 30.4 RDW (11.5 - 14.5 %) 15.4 H Plt Count (130 - 400 /CUMM) 233 MPV (7.4 - 10.4 FL) 8.2 Gran % (42.2 - 75.2 %) 87.7 H Lymphocytes % (20.5 - 51.1 %) 3.9 L Monocytes % (1.7 - 9.3 %) 8.4 Eosinophils % (0 - 5 %) 0 Basophils % (0.0 - 2.0 %) 0 L Absolute Granulocytes (1.4 - 6.5 /CUMM) 13.6 H Absolute Lymphocytes (1.2 - 3.4 /CUMM) 0.6 L Absolute Monocytes (0.10 - 0.60 /CUMM) 1.3 H Absolute Eosinophils (0.0 - 0.7 /CUMM) 0 Absolute Basophils (0.0 - 0.2 /CUMM) 0 PUBS MCHC (33.0 - 37.0 G/DL) 32.7 L 12/21 12/21 12/20 0720 0140 1300 Chemistry Sodium (137 - 145 mmol/L) 133 L Potassium (3.5 - 5.1 mmol/L) 4.8 Chloride (98 - 107 mmol/L) 97 L Carbon Dioxide (22 - 30 mmol/L) 24 Anion Gap (5 - 16) 13 BUN (7 - 17 mg/dL) 55 H Creatinine (0.5 - 1.0 mg/dL) 4.2 H Estimated GFR (>60 ml/min) 11 L BUN/Creatinine Ratio (7 - 25 %) 13.1 Coagulation PT (9.4 - 12.5 SEC) 32.7 H INR (0.90 - 1.19) 3.15 H APTT (25 - 37 SEC) 93 H 75 H Hematology CBC w Diff MAN DIFF ORDERED WBC (4.8 - 10.8 /CUMM) 17.6 H RBC (4.20 - 5.40 /CUMM) 2.08 L Hgb (12.0 - 16.0 G/DL) 6.4 *L Hct (37 - 47 %) 19.7 *L MCV (81.0 - 99.0 FL) 94.6 MCH (27.0 - 31.0 PG) 30.7 RDW (11.5 - 14.5 %) 15.3 H Plt Count (130 - 400 /CUMM) 240 MPV (7.4 - 10.4 FL) 9.6 Gran % (42.2 - 75.2 %) 86.8 H Lymphocytes % (20.5 - 51.1 %) 5.7 L Monocytes % (1.7 - 9.3 %) 7.5 Eosinophils % (0 - 5 %) 0 Basophils % (0.0 - 2.0 %) 0 L Absolute Granulocytes (1.4 - 6.5 /CUMM) 15.3 H Segmented Neutrophils (42.2 - 75.2 %) 82 H Band Neutrophils (0.0 - 5.0 %) 2 Absolute Lymphocytes (1.2 - 3.4 /CUMM) 1.0 L Lymphocytes (20.5 - 51.1 %) 7 L Monocytes (1.7 - 9.3 %) 8 Absolute Monocytes (0.10 - 0.60 /CUMM) 1.3 H Absolute Eosinophils (0.0 - 0.7 /CUMM) 0 Absolute Basophils (0.0 - 0.2 /CUMM) 0 Metamyelocytes (0.0 - 1.0 %) 1 Nucleated RBCs (0.0 - 0.0 /100WBC) 1 H Platelet Estimate (ADEQUATE) ADEQUATE Polychromasia Hypochromic-Microcytic 2+ Poikilocytosis 1+ Basophilic Stippling Anisocytosis 1+ PUBS MCHC (33.0 - 37.0 G/DL) 32.5 L 02/27 02/27 02/27 02/27 1100 0800 0654 0600 Chemistry Calcium (8.4 - 10.2 mg/dL) 8.3 L Coagulation PT Cancelled Cancelled INR Cancelled Cancelled APTT Cancelled Cancelled 12/20 12/19 0420 1200 Chemistry Sodium (137 - 145 mmol/L) 135 L Potassium (3.5 - 5.1 mmol/L) 5.4 H Chloride (98 - 107 mmol/L) 102 Carbon Dioxide (22 - 30 mmol/L) 21 L Anion Gap (5 - 16) 12 BUN (7 - 17 mg/dL) 74 H Creatinine (0.5 - 1.0 mg/dL) 5.3 *H Estimated GFR (>60 ml/min) 8 L BUN/Creatinine Ratio (7 - 25 %) 14.0 Coagulation PT (9.4 - 12.5 SEC) 16.6 H Cancelled INR (0.90 - 1.19) 1.59 H Cancelled APTT (25 - 37 SEC) 37 Hematology CBC w Diff MAN DIFF ORDERED WBC (4.8 - 10.8 /CUMM) 17.1 H RBC (4.20 - 5.40 /CUMM) 3.01 L Hgb (12.0 - 16.0 G/DL) 9.1 L Hct (37 - 47 %) 28.6 L MCV (81.0 - 99.0 FL) 95.0 MCH (27.0 - 31.0 PG) 30.3 RDW (11.5 - 14.5 %) 15.6 H Plt Count (130 - 400 /CUMM) 222 MPV (7.4 - 10.4 FL) 8.6 Gran % (42.2 - 75.2 %) 95.3 H Lymphocytes % (20.5 - 51.1 %) 2.1 L Monocytes % (1.7 - 9.3 %) 2.6 Eosinophils % (0 - 5 %) 0 Basophils % (0.0 - 2.0 %) 0 L Absolute Granulocytes (1.4 - 6.5 /CUMM) 16.3 H Absolute Lymphocytes (1.2 - 3.4 /CUMM) 0.4 L Absolute Monocytes (0.10 - 0.60 /CUMM) 0.5 Absolute Eosinophils (0.0 - 0.7 /CUMM) 0 Absolute Basophils (0.0 - 0.2 /CUMM) 0 Platelet Estimate (ADEQUATE) ADEQUATE Hypochromic-Microcytic 1+ Poikilocytosis 1+ Ovalocytes 1+ PUBS MCHC (33.0 - 37.0 G/DL) 31.9 L 12/19 12/18 12/18 0555 1973 9202 Chemistry Sodium (137 - 145 mmol/L) 136 L Potassium (3.5 - 5.1 mmol/L) 4.6 Chloride (98 - 107 mmol/L) 103 Carbon Dioxide (22 - 30 mmol/L) 21 L Anion Gap (5 - 16) 12 BUN (7 - 17 mg/dL) 51 H Creatinine (0.5 - 1.0 mg/dL) 4.2 H Estimated GFR (>60 ml/min) 11 L BUN/Creatinine Ratio (7 - 25 %) 12.1 Coagulation PT (9.4 - 12.5 SEC) 16.9 H 19.4 H Cancelled INR (0.90 - 1.19) 1.62 H 1.86 H Cancelled APTT (25 - 37 SEC) 42 H Hematology CBC w Diff NO MAN DIFF REQ WBC (4.8 - 10.8 /CUMM) 16.7 H RBC (4.20 - 5.40 /CUMM) 3.42 L Hgb (12.0 - 16.0 G/DL) 10.4 L Hct (37 - 47 %) 32.3 L MCV (81.0 - 99.0 FL) 94.4 MCH (27.0 - 31.0 PG) 30.5 RDW (11.5 - 14.5 %) 15.7 H Plt Count (130 - 400 /CUMM) 225 MPV (7.4 - 10.4 FL) 8.1 Gran % (42.2 - 75.2 %) 88.9 H Lymphocytes % (20.5 - 51.1 %) 4.3 L Monocytes % (1.7 - 9.3 %) 4.9 Eosinophils % (0 - 5 %) 0.5 Basophils % (0.0 - 2.0 %) 1.4 Absolute Granulocytes (1.4 - 6.5 /CUMM) 14.9 H Absolute Lymphocytes (1.2 - 3.4 /CUMM) 0.7 L Absolute Monocytes (0.10 - 0.60 /CUMM) 0.8 H Absolute Eosinophils (0.0 - 0.7 /CUMM) 0.1 Absolute Basophils (0.0 - 0.2 /CUMM) 0.2 PUBS MCHC (33.0 - 37.0 G/DL) 32.3 L 12/18 12/18 1830 1810 Coagulation PT Cancelled Cancelled INR Cancelled Cancelled Imaging/Other Studies: CT pending
--- NOTE | 2016-12-21 13:44 | CT SCAN REPORT ---
EXAMINATION: CT ABDOMEN AND PELVIS WITHOUT CONTRAST CLINICAL INFORMATION: 66-year-old female with left hip fracture, status post Gamma Nail placement. Acute drop in hematocrit from 9 to 6.4. COMPARISON: X-ray left hip done on 12/17/[address] of the abdomen and pelvis done on 04/19/2016. TECHNIQUE: Multidetector volumetric imaging was performed from the superior aspect of the liver through the pubic symphysis. Sagittal and coronal reformatted images were obtained on the technologist's workstation. DLP: 384.51 mGy-cm. FINDINGS: LUNG BASES: Curvilinear band-like opacity is noted at left lung base, likely representing hypoventilatory, atelectatic changes, new since prior study dated 04/19/2016. LIVER, GALLBLADDER, AND BILIARY TREE: The liver is normal in size, shape, and attenuation. No focal hepatic lesion or biliary ductal dilatation is present. Multiple subcentimeter partially calcific calculi are noted, similar to prior study. PANCREAS: Unremarkable. SPLEEN: Contour deformity, calcifications are present, may represent old posttraumatic change, unchanged. ADRENAL GLANDS: Unremarkable. KIDNEYS AND URETERS: Both kidneys are atrophied with superimposed parapelvic left renal cyst, the left kidney appears significantly smaller as compared to the prior study. BLADDER: Unremarkable. GASTROINTESTINAL TRACT: The small and large bowel are unremarkable. The appendix is not visualized. ABDOMINAL WALL: There is a large soft tissue hematoma identified in the left gluteal region extending into the surgical bed, including the adjacent posteromedial and lateral aspects of the left proximal thigh, measures approximately 12.0 x 9.2 x 6.0 cm. The hardware appears to be intact. The fracture lines are still visualized. LYMPH NODES: Normal. VASCULAR: Extensive atherosclerotic disease is noted within the aorta and its branches. PELVIC VISCERA: Subtle presacral fluid density is noted, new since prior study. There is no pelvic mass present. OSSEOUS STRUCTURES: Postsurgical changes are noted within the left proximal femur with intact hardware. IMPRESSION: 1. Abnormal CT scan of the abdomen and pelvis showing presence of a large hematoma at the left gluteal, hip and proximal left thigh region with intact hardware at left proximal visualized femur. Small amount of fluid is also noted within the presacral space. 2. No other significant interval change since 04/19/2016. This critical result was discussed with Ladi Cooney M.D. at 1:07 p.m. on 12/21/2016 and it was ascertained that the content and urgency of the report was understood at the time of direct communication.
--- NOTE | 2016-12-21 16:50 | Cons- CRCU ---
[address],IMGE 12/21/16 1650: General Information and HPI Consulting Request Date of Consult: 12/21/16 Requested By: Max Lemon MD Reason for Consult: Need for hemodynamic monitoring given episode of hypotension during dialysis Source of Information: patient, old records Exam Limitations: no limitations History of Present Illness: Ms. Freeman is a 66 y/o F with PMHx of ESRD on HD, atrial fibrillation on warfarin, mitral stenosis s/p prosthetic valve replacement and COPD on 2 L home oxygen who was admitted on 12/17/16 with left intertrochanteric hip fracture secondary to a mechanical fall. Patient was seen by the orthopedic surgery team who decided to take her to the OR following cardiac clearance given her extensive cardiac history. Cardiology felt that given her mechanical mitral valve, patient was at a high risk for thromboembolic events if her anticoagulation was to be discontinued and suggested letting INR drift from 4.29 on admission, starting IV heparin drip once INR drops to < 2 and continuing the drip up until 4-6 hours prior to surgery. INR was reversed according to cardiology recommendations and patient was taken to the OR for L hip IMHS on day 3 of admission (12/19/16). IV heparin drip was continued on the evening of surgery with plan to transition to warfarin and patient received 3 mg of warfarin yesterday, POD #1 s/p L hip IMHS. Today patient's H/H had dropped down to 5.9/18.1 from 9.1/28.6 yesterday, with CT Abdomen/Pelvis revealing a large hematoma at the L gluteal, hip and proximal L thigh region. She was transfused 2 units of pRBCs during dialysis but had an episode of hypotension during dialysis which prompted her to be transferred to the ICU for close hemodynamic monitoring. Allergies/Medications Allergies: Coded Allergies: NO KNOWN ALLERGIES (11/26/16) Home Med List: Albuterol Sulfate (Proair Hfa) 90 MCG HFA.AER.AD 2 PUF INH Q4-6 PRN PRN COPD (Reported) Amlodipine Besylate 10 MG TABLET 1 TAB PO DAILY HTN (Reported) Budesonide/Formoterol Fumarate (Symbicort 160-4.5 Mcg Inhaler) 160 MCG-4.5 MCG/ ACTUATION HFA.AER.AD 2 PUF INH BID COPD (Reported) Cholecalciferol (Vitamin D3) (Vitamin D3) 1,000 UNIT CAPSULE 1 CAP PO DAILY NUTRIENT (Reported) Diltiazem HCl (Diltiazem 24HR ER) 120 MG CAP.ER.24H 1 CAP PO DAILY AFIB ( Reported) Epoetin Jerson (Procrit) 20,000 U/ML ML 7,000 U IV Tuesday PRN WITH DIALYSIS Furosemide 40 MG TABLET 1 TAB PO BID FLUID IN LEGS (Reported) Lorazepam (Ativan) 2 MG TABLET 1 TAB PO QPM PRN ANXIETY (Reported) OXYCODONE HCL (Oxycodone HCl) 15 MG TABLET 1 TAB PO Q4H PAIN (Reported) Prednisone 10 MG TABLET 1 TAB PO DIRECTED COPD TAKE 3 TABLETS FOR 2 DAYS (12/01-12/02) TAKE 2 TABLETS FOR 2 DAYS (12/03-12/04) TAKE 1 TABLET FOR 2 DAYS (12/05-12-06) Sertraline HCl (Zoloft) 100 MG TABLET 1 TAB PO DAILY MENTAL HEALTH (Reported) Sevelamer Carbonate (Renvela) 800 MG TABLET 2 TAB PO TID KIDNEY FUNCTION ( Reported) Sevelamer Carbonate (Renvela) 800 MG TABLET 1 TAB PO TID WM PHOSPHORUS BINDER (Reported) TAKE WITH MEALS Tiotropium [place] (Spiriva) 18 MCG CAP.W.DEV 1 CAP INH DAILY COPD (Reported) Warfarin Sodium (Coumadin) 5 MG TABLET 0.5 TAB PO DAILY BLOOD THINNER ( Reported) Current Medications: Current Medications Sig/Tripp Start time Last Medication Dose Route Stop Time Status Admin Acetaminophen 650 MG Q6P PRN 12/19 1700 AC PO Albuterol Sulfate 3 ML EVERY 4 HRS/AWAKE 12/19 1999 AC 12/21 INH 2013 Albuterol Sulfate 2 PUF Q4-6 PRN PRN 12/19 1700 AC INH Amlodipine Besylate 10 MG AT BEDTIME 12/190 AC 12/20 PO 2225 Bisacodyl 5 MG AT BEDTIME 12/190 AC 12/20 PO 2225 Budesonide/ 2 PUF BID 12/19 2199 AC 12/21 Formoterol Fumarate INH 841 Cholecalciferol 1,000 IU DAILY 12/20 1000 AC 12/21 PO 0834 Diltiazem HCl 120 MG DAILY 12/20 1000 AC 12/21 PO 0834 Epoetin Jerson 4,000 UNIT MoWeFr 12/20 1653 AC IV Furosemide 40 MG 7:30 AM, & 4:30 PM 12/20 0730 AC 12/21 PO 0623 Heparin Sodium 5,000 UNIT .STK-MED ONE 12/21 1159 DC (Porcine) IV 12/21 1200 Heparin Sodium/ 25,000 UNIT Q24H 12/19 2100 DC 12/21 Dextrose IV 0352 Dextrose/Water 500 ML Hydromorphone HCl 1 MG Q4P PRN 12/20 1415 AC 12/21 IV 0627 Lorazepam 0.5 MG ONE ONE 12/21 1145 DC 12/21 PO 12/21 1146 1213 Lorazepam 2 MG QPM 12/19 2200 AC 12/20 PO 2226 Multivitamins 1 TAB DAILY 12/20 1000 AC 12/21 PO 0834 Oxycodone HCl 15 MG Q6 PRN 12/19 1700 AC 12/21 PO 0834 Paricalcitol 2 MCG MoWeFr 12/20 1653 AC IV Patient Medication 1 ED .STK-MED ONE 12/21 1416 DC Teaching ED 12/21 1417 Polyethylene Glycol 17 GM DAILY 12/20 1000 AC PO Prednisone 10 MG DAILY 12/20 1000 AC 12/21 PO 0833 Senna 187 MG AT BEDTIME 12/19 2200 AC 12/20 PO 2226 Sertraline HCl 100 MG DAILY 12/20 1000 AC 12/21 PO 0833 Sevelamer HCl 2,400 MG TIDAC 12/19 1700 AC 12/21 PO 1831 Tiotropium [place] 1 PUF DAILY 12/20 1000 AC 12/21 INH 0841 Warfarin Sodium 2 MG ONCE ONE 12/21 1700 CAN PO 12/21 1701 Review of Systems Review of Systems Constitutional: Reports: weakness. Cardiovascular: Denies: chest pain, palpitations, peripheral edema. Respiratory: Reports: short of breath. Past History Travel History Traveled to [place] past 21 day No Medical History Blood Transfusion Hx: Yes Neurological: TIA EENT: NONE Cardiovascular: AFIB (s/p ablation), CHF, hypertension, mitral stenosis, PACER ( R CHEST) MITRAL VALVE REPLACEMENT Respiratory: COPD, emphysema, pulmonary hypertension, 02 DEP @ 3L VIA N/C Gastrointestinal: 08/06 EGD- suggestion of gastroparesis 08/06- colonoscopy- fair prep, but otherwise normal Hepatic: NONE Renal: chronic kidney disease, FISTULA L ARM Musculoskeletal: chronic back pain Psychiatric: anxiety, depression Endocrine: NONE Blood Disorders: anemia Cancer(s): NONE MEDICAL INFORMATION OFFICER/Reproductive: NONE Surgical History Surgical History: appendectomy, Av fistual on left side [facility] valve replacement February 1996 at [facility] evacuation of left arm hematoma pacemaker MVR Family History Relations & Conditions If Any: BROTHER FH: diabetes mellitus Psychosocial History Services at Home: Nursing, Oxygen, Physical Therapy Smoking Status: Former Smoker Functional Ability ADLs Independent: dressing, eating, toileting, bathing. Ambulation: independent Exam & Diagnostic Data Last 24 Hrs of Vital Signs/I&O Vital Signs Date Time Temp Pulse Resp B/P Pulse O2 O2 Flow FiO2 Ox Delivery Rate 12/21 1999 96 Nasal 2.0L Cannula 12/21 1999 97.5 70 20 100/60 96 Nasal 2.0L Cannula 12/21 1721 96 Nasal 3.0L Cannula 12/21 1700 98.6 70 20 100/50 94 Nasal 2.0L Cannula 12/21 1409 Nasal 3.0L Cannula 12/21 0849 96 Nasal 3.0L Cannula 12/21 0800 Nasal 3.0L Cannula 12/21 0731 97.6 74 20 110/60 97 Nasal 3.0L Cannula 12/21 0000 Nasal 3.0L Cannula 12/20 2226 75 110/60 12/20 2157 97.8 75 20 110/48 98 Nasal Cannula Intake & Output 12/21 1600 12/21 0800 12/21 0000 Intake Total 840 540 670 Output Total Balance 840 540 670 Intake, IV 140 300 310 Intake, Oral 700 240 360 Number 1 Bowel Movements Patient 78.471 kg Weight Physical Exam General Appearance: well developed/nourished, no apparent distress, alert, awake , comfortable Neck: supple Respiratory: lungs clear Cardiovascular: regular rate/rhythm, normal S1 and S2 Gastrointestinal: soft, non-tender, positive bowel sounds Extremities: trace edema on bilateral lower extremities Last 48 Hrs of Labs/Thien: Laboratory Tests 12/21/16 1736: Troponin I 0.03, CBC w Diff NO MAN DIFF REQ, RBC 2.61 L, MCV 91.7, MCH 30.1, RDW 16.0 H, MPV 9.1, Gran % 87.6 H, Lymphocytes % 4.9 L, Monocytes % 7.4, Eosinophils % 0.1, Basophils % 0 L, Absolute Granulocytes 11.8 H, Absolute Lymphocytes 0.7 L, Absolute Monocytes 1.0 H, Absolute Eosinophils 0, Absolute Basophils 0, PUBS MCHC 32.8 L 12/21/16 1210: Troponin I 0.03, CBC w Diff NO MAN DIFF REQ, RBC 1.95 L, MCV 92.9, MCH 30.4, RDW 15.4 H, MPV 8.2, Gran % 87.7 H, Lymphocytes % 3.9 L, Monocytes % 8.4, Eosinophils % 0, Basophils % 0 L, Absolute Granulocytes 13.6 H, Absolute Lymphocytes 0.6 L, Absolute Monocytes 1.3 H, Absolute Eosinophils 0, Absolute Basophils 0, PUBS MCHC 32.7 L 12/21/16 0930: APTT 50 H 12/21/16 0720: Anion Gap 13, Estimated GFR 11 L, BUN/Creatinine Ratio 13.1, PT 32.7 H, INR 3.15 H, CBC w Diff MAN DIFF ORDERED, RBC 2.08 L, MCV 94.6, MCH 30.7, RDW 15.3 H, MPV 9.6, Gran % 86.8 H, Lymphocytes % 5.7 L, Monocytes % 7.5, Eosinophils % 0, Basophils % 0 L, Absolute Granulocytes 15.3 H, Segmented Neutrophils 82 H, Band Neutrophils 2, Absolute Lymphocytes 1.0 L, Lymphocytes 7 L, Monocytes 8, Absolute Monocytes 1.3 H, Absolute Eosinophils 0, Absolute Basophils 0, Metamyelocytes 1, Nucleated RBCs 1 H, Platelet Estimate ADEQUATE, Polychromasia , Hypochromic-Microcytic 2+, Poikilocytosis 1+, Basophilic Stippling , Anisocytosis 1+, PUBS MCHC 32.5 L 12/21/16 0140: APTT 93 H 12/20/16 1300: APTT 75 H 12/20/16 1100: PT Cancelled, INR Cancelled, APTT Cancelled 12/20/16 0800: Calcium 8.3 L 12/20/16 0654: PT Cancelled, INR Cancelled 12/20/16 0600: APTT Cancelled 12/20/16 0420: Anion Gap 12, Estimated GFR 8 L, BUN/Creatinine Ratio 14.0, PT 16.6 H, INR 1.59 H, APTT 37, CBC w Diff MAN DIFF ORDERED, RBC 3.01 L, MCV 95.0, MCH 30.3, RDW 15.6 H, MPV 8.6, Gran % 95.3 H, Lymphocytes % 2.1 L, Monocytes % 2.6, Eosinophils % 0, Basophils % 0 L, Absolute Granulocytes 16.3 H, Absolute Lymphocytes 0.4 L, Absolute Monocytes 0.5, Absolute Eosinophils 0, Absolute Basophils 0, Platelet Estimate ADEQUATE, Hypochromic-Microcytic 1+, Poikilocytosis 1+, Ovalocytes 1+, PUBS MCHC 31.9 L Diagnostic Data Other Results CT ABDOMEN PELVIS W/O IV CONTRAST: 1. Abnormal CT scan of the abdomen and pelvis showing presence of a large hematoma at the left gluteal, hip and proximal left thigh region with intact hardware at left proximal visualized femur. Small amount of fluid is also noted within the presacral space. 2. No other significant interval change since 04/19 2016. Assessment/Plan Impression/Plan: 66 y/o F with PMHx of ESRD on HD and atrial fibrillation on warfarin, mitral stenosis s/p mechanical valve replacement who is admitted for L hip intertrochanteric failure 2/2 mechanical fall, now POD #2 s/p L hip IMHS with ABLA 2/2 hematoma at the surgical site while on bridging anticoagulation. Respiratory: #COPD: Not in acute exacerbation. On chronic steroids. Currently at her baseline home oxygen requirement of 2 L NC. * TRC and nebs. * Continue prior to admission prednisone 10 mg PO daily. * Continue prior to admission inhalers Spiriva and Symbicort. * Provide supplemental oxygen to keep SpO2 > 92%. * Check CXR in the morning to evaluate for volume overload s/p transfusion. Infectious Diseases: Remains afebrile. Persistent leukocytosis likely secondary to chronic steroid therapy. No signs or symptoms of infection. Cardiovascular: #Hypotension: Episode of hypotension during dialysis today which has resolved. Patient remains hemodynamically stable. * Cardiology following. Appreciate their recs. * Monitor for hemodynamical instability. * OK to continue amlodipine 5 mg PO daily. #Atrial fibrillation: Was on bridging anticoagulation post-operatively, with 3 mg of warfarin administered yesterday evening which brought INR to 3.15 this morning. INR goal is 2.5-3.5 given mechanical mitral valve. * Heparin IV discontinued in the setting of ABLA 2/2 hematoma. * Hold warfarin. * ALPs for DVT PPx. * Appreciate cardiology input regarding resuming anticoagulation therapy. Hematology: #ABLA: Significant drop in H/H POD #2 s/p L hip IMHS while on bridging anti- coagulation. S/p 2 units of pRBCs with improvement of H/H from 5.9/18.1 to 7.9/ 23.9. 2/2 hematoma at the surgical site with CT Abdomen/Pelvis demonstrating a large hematoma at the left gluteal, hip and proximal left thigh region. * Continue to monitor H/H and transfuse as needed to keep Hgb > 8. * Await until dialysis tomorrow to give 2 more units of pRBCs to prevent volume overload. * General surgery consulted for the management of hematoma. Appreciate their recs. * Continue to monitor INR. Metabolic: #ESRD: Secondary to presumed hypertensive nephrosclerosis. On HD. * Nephrology following. Appreciate their recs. * Plan for HD tomorrow. * Continue Epogen 4000 units IV and Zemplar 2 mcg IV three times per week with HD. * Continue Nephrocaps tab PO daily and Sevelamer 2400 mg PO TIDAC. Alimentary: Renal Dialysis Diet Neurologic: #Depression/anxiety: * Continue prior to admission sertraline 100 mg PO daily and Ativan 2 mg PO QPM. L hip intertrochanteric fracture: POD #2 s/p L hip IMHS. * Management per orthopedic surgery team. DVT PPx: ALPs CODE: DNR/DNI Problem List: 1. COPD 2. ESRD (end stage renal disease) on dialysis 3. Intertrochanteric fracture of left hip 4. Acute blood loss anemia 5. Chronic atrial fibrillation 6. H/O mitral valve replacement with mechanical valve 7. Hematoma, postoperative 8. Hematoma of left hip 9. Depression 10. Anxiety Consult Acknowledgment - Thank you for your consult request. VICENTE DOLL MD 12/21/16 3486: Assessment/Plan Other Findings/Comments: Vicente Spivey M.D. have examined this patient, reviewed available EMR data, personally reviewed images, discussed with resident/PA/RESEARCH ENGINEER, discussed management plan with housestaff and nursing staff, discussed managment plan all of healthcare providers, discussed management plan with patient and/or family, agreed with resident/PA/RESEARCH ENGINEER. The past history and parts of the chart have been autopopulated. Impression 66 year old woman - retroperitoneal bleed in the setting of a hip fracture - mechanical mitral valve - COPD Plan - surgical consultation - f/u orthopedics - s/p blood transfusion - monitor cbc, coags, hemodynamics - HD tomorrow and will arrange transfusion if needed at that time if no urgent need, if an urgent need arises a central access catheter will be consider - DNR/DNI - TRC/Nebs D/w patient, housestaff, family TTS 40 min Consult Acknowledgment - Thank you for your consult request.
[2016-12-21 17:00] VITALS: BP 100/50
--- NOTE | 2016-12-21 17:00 | NUR ---
RECEIVED PATIENT TO ROOM 101 FROM DIALYSIS SUITE. PATIENT ALERT AND ORIENTED ON ARRIVAL. PATIENT TRANSFERRED DUE TO DROP IN CBC VALUES AND BP DURING DIALYSIS A RESULT OF HEMATOMA L L HIP S/P SURGICAL REPAIR. PATIENT TRANSFUSED WITH 2U PACKED CELLS DURING DIALYSIS. POST DIALYSIS WEIGHT 186.1LBS PER BED SCALE. LUNGS WITH GOOD AIR MOVEMENT AND SCATTERED RHONCHI AT BASES. SAT 95% ON 2L VIA NC. MONITOR SR WITH OCCAS PVC. BP STABLE AT 100/60 PULSE 70. SKIN SLIGHTLY PALE. FISTULA INTACT TO L UPPER ARM, BANDAIDS DRY NO EVIDENCE OF BLEEDING POST DIALYSIS. ABD SOFT NON TENDER. DRSG TO L HIP WITH SOME SEROSANGUINOUS DRAINAGE. PULSES INTACT TO ALL EXTREMITIES.
--- NOTE | 2016-12-21 17:20 | Transfer of Care Summary ---
Hospital Course Course Hospital Course: 66 years old F with PMH of COPD on home oxygen, hypertension, mitral valve stenosis S/P replacement 1995, Mil guillory on warfarin, CHF, hypertension who presented after sustaining a mechanical fall and having evidence of intertrochanteric fracture with mild displacement. Will go for surgical hip repair. Patient has ESRD on HD, fluid overloaded at presentation. Imaging Left hip X ray IMPRESSION: 1. Left hip: Mildly displaced intertrochanteric fracture of the left femur. 2. Left knee: No acute findings. Admitted to general medicine floor and treated for the following conditions. Problem list Left mildly displaced intertrochanteric fracture INR of 4.29 at presentation. She had a very complicated and extensive cardiac history to reverse her INR. Ortho following. Pain control with Hydromorphine 1mg Q6 and oxycodone 15mg Q6. Underwent left hip intramuscular nail placement IR guided. he was resumed on IV heparin after surgery. Today her H&H dropped significantly with CT scan showing extending hematoma. Discontinued on her anticoagulation, started on dialysis with transfusion to prevent overload. End-stage renal disease on hemodialysis Her K is 5.3 with Cr 4.7 at presentation. Underwent hemodialysis with epo 4000 units IV, Zemplar 2mcg IV. On 2gm sodium & potassium diet. On sevelamer 2400mg with meals. Her Cr post dialysis is 2.3.Yesterday her hemodialysis terminated because of pain, however her H&H dropped today requiring transfusion. Today she underwent dialysis with 2 unit transfusion. Check BEP. Today during dialysis with transfusion she became hypotensive and eventually transfered to ICU for closer monitoring of vitals. Permanent Atrial Fibrillation History of paroxysmal followed by permanent Sandra with RVR , leading to AV node ablation (Aug 2010) and placement of Biventricular pacemaker placement complicated by splenic hematoma. On IV heparin after surgery. Received first dose of coumadin with INR of 3.15 today. However her H&H dropped significantly today. So we are currently holding off coumadin dosage and discontinued IV heparin. Congestive Heart failure * Last ECHO was on 06/04/2015 showing concentric LVH with mild dilatation. EF - 50-55% Prosthetic mitral valves * History of Rheumatic heart disease with Mitral Stenosis S/P Mechanical valve replacement in february 1996. * Requires anticoagulation with goal INR of 2.5-3.5. COPD on home oxygen * Chronic and stable. * History of recurrent exacerbations complicated with spontaneous pneumothorax. * Currently on 3L oxygen. On chronic steroid therapy with prednisone 10mg. TRC and nebs Depression/Anxiety * Her home medications Sertraline 100mg, Ativan 2mg are continued. Hypertension * Her home medication Amlodipine 10mg is continued. DVT prophylaxis * IV heparin Code Status * DNR/DNI Complications: Hematoma around the site of intertrochanteric nail. Hypotension during dialysis requiring ICU transfer. Significant Procedures: CT scan abdomen without contrast IMPRESSION: 1. Abnormal CT scan of the abdomen and pelvis showing presence of a large hematoma at the left gluteal, hip and proximal left thigh region with intact hardware at left proximal visualized femur. Small amount of fluid is also noted within the presacral space. 2. No other significant interval change since 04/19/2016. This critical result was discussed with Ladi Cooney M.D. at 1:07 p.m. on 12/21/2016 and it was ascertained that the content and urgency of the report was understood at the time of direct communication. Hip xray after surgery on 12/19 IMPRESSION: Fluoroscopic assistance and successful placement of Gamma Nail at the site of left hip fracture. Full procedural details will be dictated by Dr. Vick. Hip Xray before surgery on 12/17/16 IMPRESSION: 1. Left hip: Mildly displaced intertrochanteric fracture of the left femur. 2. Left knee: No acute findings. CXR at admission on 12/17/16 IMPRESSION: No acute cardiopulmonary findings. Pertinent Lab Results: above. Assessment/Plan: as above Attending MD Review Statement Documenting Attending: TYREL LANE,YAIR
[2016-12-21 17:58] LABS: ABSOLUTE BASOPHIL COUNT 0 /CUMM (0.0-0.2); ABSOLUTE EOSINOPHIL COUNT 0 /CUMM (0.0-0.7); BASOPHIL % 0 % (0.0-2.0); EOSINOPHIL % 0.1 % (0-5); PLATELET COUNT 197 /CUMM (130-400); WHITE BLOOD CELL COUNT 13.5 /CUMM (4.8-10.8)
[2016-12-21 18:04] LABS: ABSOLUTE GRANULOCYTE CT 11.8 /CUMM (1.4-6.5); ABSOLUTE LYMPH COUNT 0.7 /CUMM (1.2-3.4); MEAN CORPUSCULAR HGB 30.1 PG (27.0-31.0); MEAN CORPUSCULAR HGB CONC 32.8 G/DL (33.0-37.0); MEAN CORPUSCULAR VOLUME 91.7 FL (81.0-99.0); MEAN PLATELET VOLUME 9.1 FL (7.4-10.4)
[2016-12-21 18:07] LABS: HEMATOCRIT 23.9 % (37-47); RED BLOOD CELL CT 2.61 /CUMM (4.20-5.40)
[2016-12-21 18:24] LABS: GRANULOCYTE % 87.6 % (42.2-75.2)
--- NOTE | 2016-12-21 18:48 | PN- Cardiology ---
Subjective Subjective: Mrs. castaneda admits to feeling tired, weak, and a little short of breath today. She denies any chest discomfort, palpitations, or lower extremity edema. Her H/H has dropped significantly with her on bridging anticoagulation. Objective Vital Signs and I&Os Vital Signs Date Time Temp Pulse Resp B/P Pulse O2 O2 Flow FiO2 Ox Delivery Rate 12/21 1721 96 Nasal 3.0L Cannula 12/21 1409 Nasal 3.0L Cannula 12/21 0849 96 Nasal 3.0L Cannula 12/21 0731 97.6 74 20 110/60 97 Nasal 3.0L Cannula 12/21 0000 Nasal 3.0L Cannula 12/20 2226 75 110/60 12/20 2157 97.8 75 20 110/48 98 Nasal Cannula Intake & Output 12/21 1600 12/21 0800 12/21 0000 12/20 1600 12/20 0800 12/20 0000 Intake Total 540 670 547.2 357.6 512.2 Output Total 200 0 Balance 540 670 347.2 357.6 512.2 Intake, IV 300 310 307.2 257.6 32.2 Intake, Oral 240 360 240 100 480 Number 1 1 0 1 Bowel Movements Output, Urine 200 0 Patient 173 lb 170 lb 170 lb Weight Physical Exam: Well-developed, pale-appearing female in no acute distress with nasal oxygen in place. vital signs: See above. Lungs: Decreased breath sounds bilaterally. Heart: S1, S2 with appropriate mechanical heart sounds and grade 2/6 systolic murmur. Abdomen: Soft, nontender, positive bowel sounds. Extremities: Trace edema. Assessment/Plan Assessment/Plan Mrs. Castaneda is a 66-year-old female with multiple medical problems including a history of mechanical mitral valve prosthesis, chronic atrial fibrillation on full anticoagulate with a difficult to control ventricular response that led to the placement of a biventricular pacemaker following AV node ablation, previous TIA while on Warfarin anticoagulation, and multifactorial anemia who is s/p orthopedic surgery postoperative day #2 complicated by a significant drop in her H/H while on bridging anticoagulation who, fortunately, has remained hemodynamically stable. She was on IV Heparin, received one dosage of Warfarin 3 mg last evening, and the antimicrobial Cefazolin. Her IV Heparin was held, she has received no further Warfarin (INR today was 3.15), and is to be transfused with packed red cells. The plan is also to have her undergo hemodialysis later today. Would follow up a CXR in the a.m. Continue telemetry? Yes
--- NOTE | 2016-12-21 19:04 | Cons- General Surgery ---
General Information and HPI Consulting Request Date of Consult: 12/21/16 Requested By: YAIR SARAH MD Reason for Consult: Hematoma Source of Information: patient, old records History of Present Illness: Chief complaint reason for consultation is hematoma, significant drop in hematocrit History of present illness: Patient is a 66-year-old on home oxygen for COPD, on dialysis with end-stage renal disease, status post mechanical heart valve, pacemaker, atrial fibrillation, on medications including prednisone and Coumadin. She was admitted 4 days ago after a fall sustaining a left hip fracture she was taken to the operating room for an IM nail repair by orthopedic surgery 2 days ago. Yesterday she took a few steps with PT. Today she was transferred to the ICU because of a drop of her hemoglobin from 9 to 6. She denies any new left hip pain other than what she's had since the fall and the surgery, no shortness of breath no chest pain no lightheadedness no nausea. Allergies/Medications Allergies: Coded Allergies: NO KNOWN ALLERGIES (11/26/16) Home Med List: Albuterol Sulfate (Proair Hfa) 90 MCG HFA.AER.AD 2 PUF INH Q4-6 PRN PRN COPD (Reported) Amlodipine Besylate 10 MG TABLET 1 TAB PO DAILY HTN (Reported) Budesonide/Formoterol Fumarate (Symbicort 160-4.5 Mcg Inhaler) 160 MCG-4.5 MCG/ ACTUATION HFA.AER.AD 2 PUF INH BID COPD (Reported) Cholecalciferol (Vitamin D3) (Vitamin D3) 1,000 UNIT CAPSULE 1 CAP PO DAILY NUTRIENT (Reported) Diltiazem HCl (Diltiazem 24HR ER) 120 MG CAP.ER.24H 1 CAP PO DAILY AFIB ( Reported) Epoetin Jerson (Procrit) 20,000 U/ML ML 7,000 U IV Tuesday PRN WITH DIALYSIS Furosemide 40 MG TABLET 1 TAB PO BID FLUID IN LEGS (Reported) Lorazepam (Ativan) 2 MG TABLET 1 TAB PO QPM PRN ANXIETY (Reported) OXYCODONE HCL (Oxycodone HCl) 15 MG TABLET 1 TAB PO Q4H PAIN (Reported) Prednisone 10 MG TABLET 1 TAB PO DIRECTED COPD TAKE 3 TABLETS FOR 2 DAYS (12/01-12/02) TAKE 2 TABLETS FOR 2 DAYS (12/03-12/04) TAKE 1 TABLET FOR 2 DAYS (12/05-12-06) Sertraline HCl (Zoloft) 100 MG TABLET 1 TAB PO DAILY MENTAL HEALTH (Reported) Sevelamer Carbonate (Renvela) 800 MG TABLET 2 TAB PO TID KIDNEY FUNCTION ( Reported) Sevelamer Carbonate (Renvela) 800 MG TABLET 1 TAB PO TID WM PHOSPHORUS BINDER (Reported) TAKE WITH MEALS Tiotropium Sherwood (Spiriva) 18 MCG CAP.W.DEV 1 CAP INH DAILY COPD (Reported) Warfarin Sodium (Coumadin) 5 MG TABLET 0.5 TAB PO DAILY BLOOD THINNER ( Reported) Current Medications: I reviewed Past History Medical History Blood Transfusion Hx: Yes Neurological: TIA EENT: NONE Cardiovascular: AFIB (s/p ablation), CHF, hypertension, mitral stenosis, PACER ( R CHEST) MITRAL VALVE REPLACEMENT Respiratory: COPD, emphysema, pulmonary hypertension, 02 DEP @ 3L VIA N/C Gastrointestinal: 08/06 EGD- suggestion of gastroparesis 08/06- colonoscopy- fair prep, but otherwise normal Hepatic: NONE Renal: chronic kidney disease, FISTULA L ARM Musculoskeletal: chronic back pain Psychiatric: anxiety, depression Endocrine: NONE Blood Disorders: anemia Cancer(s): NONE ASSIGNMENT DESK ASSISTANT/Reproductive: NONE Surgical History Pertinent Surgical History: appendectomy, Av fistual on left side [facility] valve replacement February 1996 at R evacuation of left arm hematoma pacemaker MVR Family History Relations & Conditions If Any: BROTHER FH: diabetes mellitus Psychosocial History Services at Home: Nursing, Oxygen, Physical Therapy Smoking Status: Former Smoker Functional Ability ADLs Independent: dressing, eating, toileting, bathing. Ambulation: independent Review of Systems Review of Systems: Constitutional: No fever, sweats or weight loss ENMT: No sore throat Cardiovascular: As above Respiratory: As above GI: No bleeding per rectum : No hematuria Musculoskeletal: As above Skin / Breast: No jaundice, rashes or itching Psychiatric: No history of drug or alcohol abuse no depression or anxiety Hematologic / lymphatic system: As above Exam & Diagnostic Data Vital Signs and I&O I reviewed Vital Signs Date Time Temp Pulse Resp B/P Pulse O2 O2 Flow FiO2 Ox Delivery Rate 12/21 1721 96 Nasal 3.0L Cannula 12/21 1409 Nasal 3.0L Cannula 12/21 0849 96 Nasal 3.0L Cannula 12/21 0731 97.6 74 20 110/60 97 Nasal 3.0L Cannula 12/21 0000 Nasal 3.0L Cannula 12/20 2226 75 110/60 12/20 2157 97.8 75 20 110/48 98 Nasal Cannula I reviewed Intake & Output 12/21 0812/21 0000 12/20 0000 Intake Total 540 670 547.2 357.6 512.2 Output Total 200 0 Balance 540 670 347.2 357.6 512.2 Intake, IV 300 310 307.2 257.6 32.2 Intake, Oral 240 360 240 100 480 Number 1 1 0 1 Bowel Movements Output, Urine 200 0 Patient 173 lb 170 lb 170 lb Weight Physical Exam: Constitutional: no acute distress no pain Eyes: sclera anicteric ENMT: moist mucous membranes Cardiovascular: S1-S2 no murmurs no peripheral edema Respiratory: clear to auscultation with normal respiratory effort and no intercostal retractions GI: abdomen soft nontender nondistended Extremities / lymphatics: Left hip repair site and surrounding buttock and flank obviously asymmetric but soft thigh compartments no erythema no areas of active bleeding or skin necrosis Skin: no jaundice no rashes warm, nondiaphoretic Psychiatric: mood and affect are appropriate and alert and oriented to person place and time Last 24 Hours of Labs: I reviewed Laboratory Tests 12/21 12/21 1736 1210 Chemistry Troponin I (< 0.11 ng/ml) 0.03 0.03 Hematology CBC w Diff NO MAN DIFF REQ NO MAN DIFF REQ WBC (4.8 - 10.8 /CUMM) 13.5 H 15.5 H RBC (4.20 - 5.40 /CUMM) 2.61 L 1.95 L Hgb (12.0 - 16.0 G/DL) 7.9 L 5.9 *L Hct (37 - 47 %) 23.9 L 18.1 *L MCV (81.0 - 99.0 FL) 91.7 92.9 MCH (27.0 - 31.0 PG) 30.1 30.4 RDW (11.5 - 14.5 %) 16.0 H 15.4 H Plt Count (130 - 400 /CUMM) 197 233 MPV (7.4 - 10.4 FL) 9.1 8.2 Gran % (42.2 - 75.2 %) 87.6 H 87.7 H Lymphocytes % (20.5 - 51.1 %) 4.9 L 3.9 L Monocytes % (1.7 - 9.3 %) 7.4 8.4 Eosinophils % (0 - 5 %) 0.1 0 Basophils % (0.0 - 2.0 %) 0 L 0 L Absolute Granulocytes (1.4 - 6.5 /CUMM) 11.8 H 13.6 H Absolute Lymphocytes (1.2 - 3.4 /CUMM) 0.7 L 0.6 L Absolute Monocytes (0.10 - 0.60 /CUMM) 1.0 H 1.3 H Absolute Eosinophils (0.0 - 0.7 /CUMM) 0 0 Absolute Basophils (0.0 - 0.2 /CUMM) 0 0 PUBS MCHC (33.0 - 37.0 G/DL) 32.8 L 32.7 L 12/21 12/21 12/21 0930 0720 0140 Chemistry Sodium (137 - 145 mmol/L) 133 L Potassium (3.5 - 5.1 mmol/L) 4.8 Chloride (98 - 107 mmol/L) 97 L Carbon Dioxide (22 - 30 mmol/L) 24 Anion Gap (5 - 16) 13 BUN (7 - 17 mg/dL) 55 H Creatinine (0.5 - 1.0 mg/dL) 4.2 H Estimated GFR (>60 ml/min) 11 L BUN/Creatinine Ratio (7 - 25 %) 13.1 Coagulation PT (9.4 - 12.5 SEC) 32.7 H INR (0.90 - 1.19) 3.15 H APTT (25 - 37 SEC) 50 H 93 H Hematology CBC w Diff MAN DIFF ORDERED WBC (4.8 - 10.8 /CUMM) 17.6 H RBC (4.20 - 5.40 /CUMM) 2.08 L Hgb (12.0 - 16.0 G/DL) 6.4 *L Hct (37 - 47 %) 19.7 *L MCV (81.0 - 99.0 FL) 94.6 MCH (27.0 - 31.0 PG) 30.7 RDW (11.5 - 14.5 %) 15.3 H Plt Count (130 - 400 /CUMM) 240 MPV (7.4 - 10.4 FL) 9.6 Gran % (42.2 - 75.2 %) 86.8 H Lymphocytes % (20.5 - 51.1 %) 5.7 L Monocytes % (1.7 - 9.3 %) 7.5 Eosinophils % (0 - 5 %) 0 Basophils % (0.0 - 2.0 %) 0 L Absolute Granulocytes (1.4 - 6.5 /CUMM) 15.3 H Segmented Neutrophils (42.2 - 75.2 %) 82 H Band Neutrophils (0.0 - 5.0 %) 2 Absolute Lymphocytes (1.2 - 3.4 /CUMM) 1.0 L Lymphocytes (20.5 - 51.1 %) 7 L Monocytes (1.7 - 9.3 %) 8 Absolute Monocytes (0.10 - 0.60 /CUMM) 1.3 H Absolute Eosinophils (0.0 - 0.7 /CUMM) 0 Absolute Basophils (0.0 - 0.2 /CUMM) 0 Metamyelocytes (0.0 - 1.0 %) 1 Nucleated RBCs (0.0 - 0.0 /100WBC) 1 H Platelet Estimate (ADEQUATE) ADEQUATE Polychromasia Hypochromic-Microcytic 2+ Poikilocytosis 1+ Basophilic Stippling Anisocytosis 1+ PUBS MCHC (33.0 - 37.0 G/DL) 32.5 L Assessment/Plan Assessment/Plan Studies: I reviewed this CT her abdomen including her left hip area on PACS myself from today. It shows soft tissue changes in the left hip area related to recent fall and surgery and bleeding, there is no significant intra-abdominal component. Impression is patient with multiple comorbidities, on Coumadin, who only 2 days ago underwent surgery on her left hip and now has a hematoma and a drop in her hemoglobin. Given that her INR has been elevated before during and after the fall and the surgery plus equilibration related to surgery and end-stage renal disease, and she walked a little yesterday, this is not that surprising. Fortunately she has no mental status changes and is not hypotensive and it does not appear that this is a rapidly expanding hematoma, but I recommend that the operative site should be managed by the operating surgeon. Problem List: 1. End-stage renal disease on hemodialysis 2. Hematoma of left hip 3. Intertrochanteric fracture of left hip 4. Anemia 5. Afib 6. Supratherapeutic INR 7. H/O mitral valve replacement with mechanical valve Consult Acknowledgment - Thank you for your consult request.
[2016-12-21 20:00] VITALS: BP 100/60
--- NOTE | 2016-12-21 20:50 | NUR ---
PT WAS TRANSFERED TO ICU FOLLOWING DIALYSIS THIS AFTERNOON. PT WAS PALE IN AM AND H/H WERE CRITICAL VALUES. 6.4 AND 19.7. TEAM WAS AWARE 0835 AM. CBC RECHECKED AT 1235: 5.9/18.1. MEDICAL TEAM WAS AWARE. PT WAS STILL ON A HEPARIN DRIP AT THIS TIME. RATE WAS CHANGED AT 12:00 NOON. LAST PTT WAS 50. GAVE BOLUS OF 3144 UNITS. VERIFIED HEPARIN RATE WITH SEGUNDO AUSTIN RN AND INCREASED RATE TO 38.4 ML HR. VERIFIED WITH TEAM THAT WANTED TO CONTINUE DRIP.DIAZ BLANC ATTEMPTED TO GET LABS AND WAS UNABLE TO ALSO GET ANOTHER LINE. PT IS A DIALYSIS . LT UPPER ARM FISTULA. HEAPRIN DRIP WAS DISCONTINUED FOLLOWING CT SCAN THAT SHOWED HEMATOMA. PT RECIEVED TWO UNITS OF BLOOD IN DIALYSIS. PT HAD NO AVAILABLE ACESS. AWARE. REPORT GIVEN TO LEIGH BLANC IN ICU. CONTINUE TO MONITOR.
[2016-12-22] VITALS: BP 118/60
--- NOTE | 2016-12-22 01:19 | NUR ---
0000 PATIENT RECEIVED ASLEEP- AWAKENED WITH VS CHECK, STATES PAIN MED EFFECTIVE FOR HIP PAIN, SKIN PALE, WARM AND DRY, SENIOR QUALITY TECHNICIAN PACED RHYTHYM- INFREQUENT PVC NOTED, PATIENT FOUND ON 3L/MIN O2 VIA NC- BREATHE SOUNDS COARSE, DIMINSHED AT BOTH BASES- CONTINUOUS O2 SAT 96 TO 97%, ABDOMEN SOFT, + BS, LUE AV FISTULA- + THRILL, + BRUIT, BANDAIDES X2 CLEAN, DRY AND INTACT, LEFT HIP DRESSING DRY AND INTACT BUT PINK-COLORED DRAINAGE VISIBLE UNDER TAPE, PATIENT RE-SETTLED FOR SLEEP, CALL LIGHT WITHIN LAVON
[2016-12-22 02:44] LABS: PT 58.3 SEC (9.4-12.5)
[2016-12-22 02:52] LABS: ABSOLUTE BASOPHIL COUNT 0 /CUMM (0.0-0.2); ABSOLUTE EOSINOPHIL COUNT 0 /CUMM (0.0-0.7); ABSOLUTE GRANULOCYTE CT 8.8 /CUMM (1.4-6.5); ABSOLUTE LYMPH COUNT 0.7 /CUMM (1.2-3.4); ABSOLUTE MONOCYTE COUNT 1.2 /CUMM (0.10-0.60); BASOPHIL % 0 % (0.0-2.0); EOSINOPHIL % 0.3 % (0-5); HEMATOCRIT 22.7 % (37-47); MEAN CORPUSCULAR HGB 30.4 PG (27.0-31.0); MEAN CORPUSCULAR HGB CONC 33.2 G/DL (33.0-37.0); MEAN CORPUSCULAR VOLUME 91.6 FL (81.0-99.0); PLATELET COUNT 189 /CUMM (130-400); RBC DISTRIBUTION WIDTH 16.8 % (11.5-14.5); RED BLOOD CELL CT 2.48 /CUMM (4.20-5.40); WHITE BLOOD CELL COUNT 10.7 /CUMM (4.8-10.8)
--- NOTE | 2016-12-22 06:43 | NUR ---
PATIENT HAS SLEPT FAIRLY WELL, NO INCREASE IN DRAINAGE NOTED LEFT HIP DRESSING, LEFT THIGH DRESSING REMAINS DRY AND INTACT, VS STABLE, HS AWARE OF O2OO LABWORK RESULTS, AWAITING AM MD ROUNDS
--- NOTE | 2016-12-22 07:16 | PN- Resident CRCU ---
Subjective HPI/CRCU Issues: No acute events overnight. She remains hemodynamically stable. Patent was seen and examined this morning. She continues to feel weak and reports that her breathing is unchanged. She denies chest pain or palpitations. She continues to have in in her hip. Objective Vital Signs & I&O Last 8 Hrs of Vitals and I&O: Vital Signs Date Time Temp Pulse Resp B/P Pulse O2 O2 Flow FiO2 Ox Delivery Rate 12/22 1723 96 Nasal 3.0L Cannula 12/22 1600 96 Nasal 3.0L Cannula 12/22 1600 97.7 72 24 98/50 96 Nasal 3.0L Cannula 12/22 1230 94 Nasal 3.0L Cannula 12/22 1128 Nasal 3.0L Cannula 12/22 0845 97 Nasal 3.0L Cannula 12/22 0800 95 Nasal 3.0L Cannula 12/22 0800 97.3 69 17 114/70 99 Nasal 3.0L Cannula 12/22 0400 99 Nasal 3.0L Cannula 12/22 0000 97 Nasal 3.0L Cannula 12/22 0000 97.1 70 18 118/60 97 Nasal 3.0L Cannula 12/21 2222 80 20 98/50 Intake & Output 12/22 1600 Intake Total 400 Output Total 400 Balance 0 Intake, IV 40 Intake, Oral 360 Number 1 Bowel Movements Output, Urine 400 Exam General Appearance: well developed/nourished, no apparent distress, alert, awake Head: atraumatic, normal appearance Neck: supple Respiratory: decreased breath sounds, few rhonchi scattered throughout bilateral lung nino Cardiovascular: normal S1 and S2 Gastrointestinal: soft, non-tender, positive bowel sounds Extremities: bilateral lower extremities with trace edema Skin: warm/dry Current Medications: Current Medications Sig/Tripp Start time Last Medication Dose Route Stop Time Status Admin Acetaminophen 650 MG Q6P PRN 12/19 1699 AC PO Albuterol Sulfate 3 ML EVERY 4 HRS/AWAKE 12/19 1999 AC 12/22 INH 1715 Albuterol Sulfate 2 PUF Q4-6 PRN PRN 12/19 1699 AC INH Amlodipine Besylate 10 MG AT BEDTIME 12/19 2199 AC 12/21 PO 2222 Bisacodyl 5 MG AT BEDTIME 12/19 2199 AC 12/21 PO 222 Budesonide/ 2 PUF BID 12/19 2199 AC 12/22 Formoterol Fumarate INH 0910 Cholecalciferol 1,000 IU DAILY 12/20 1000 AC 12/22 PO 0910 Dextrose/Sodium 1,000 ML Q13H 12/22 0045 CAN Chloride IV Diltiazem HCl 120 MG DAILY 12/20 1000 AC 12/22 PO 0909 Epoetin Jerson 4,000 UNIT MoWeFr 12/20 1653 AC 12/22 IV 1315 Ferric Sodium 125 MG QWED 12/29 0700 CAN Gluconate Complex IV Ferric Sodium 125 MG QWED@1200 12/22 1200 AC 12/22 Gluconate Complex IV 1300 Sodium Chloride 100 ML Furosemide 40 MG 7:30 AM, & 4:30 PM 12/20 0730 AC 12/22 PO 1603 Hydromorphone HCl 2 MG Q4P PRN 12/22 1030 AC 12/22 IV 1403 Hydromorphone HCl 1 MG Q4P PRN 12/20 1415 DC 12/22 IV 0911 Lorazepam 2 MG QPM 12/19 2200 AC 12/21 PO 2218 Multivitamins 1 TAB DAILY 12/20 1000 AC 12/22 PO 0909 Oxycodone HCl 15 MG Q6 PRN 12/19 1700 AC 12/22 PO 0517 Paricalcitol 2 MCG MoWeFr 12/20 1653 AC 12/22 IV 1315 Polyethylene Glycol 17 GM DAILY 12/20 1000 AC 12/22 PO 0909 Prednisone 10 MG DAILY 12/20 1000 AC 12/22 PO 0909 Senna 187 MG AT BEDTIME 12/19 2200 AC 12/21 PO 2222 Sertraline HCl 100 MG DAILY 12/20 1000 AC 12/22 PO 0910 Sevelamer HCl 2,400 MG TIDAC 12/19 1700 AC 12/22 PO 1603 Tiotropium Sparks 1 PUF DAILY 12/20 1000 AC 12/22 INH 0911 Results Results: Laboratory Tests 12/22 12/22 1712 0500 Chemistry Sodium Cancelled Potassium Cancelled Chloride Cancelled Carbon Dioxide Cancelled Anion Gap Cancelled BUN Cancelled Creatinine Cancelled Glucose Cancelled Calcium Cancelled Phosphorus Cancelled Magnesium Cancelled Total Bilirubin Cancelled AST Cancelled ALT Cancelled Albumin Cancelled Coagulation PT Cancelled INR Cancelled Hematology CBC w Diff MAN DIFF ORDERED WBC (4.8 - 10.8 /CUMM) 12.4 H RBC (4.20 - 5.40 /CUMM) 2.73 L Hgb (12.0 - 16.0 G/DL) 8.4 L Hct (37 - 47 %) 24.7 L MCV (81.0 - 99.0 FL) 90.6 MCH (27.0 - 31.0 PG) 30.6 RDW (11.5 - 14.5 %) 16.6 H Plt Count (130 - 400 /CUMM) 179 MPV (7.4 - 10.4 FL) 8.9 Gran % (42.2 - 75.2 %) 88.1 H Lymphocytes % (20.5 - 51.1 %) 3.0 L Monocytes % (1.7 - 9.3 %) 8.6 Eosinophils % (0 - 5 %) 0.2 Basophils % (0.0 - 2.0 %) 0.1 Absolute Granulocytes (1.4 - 6.5 /CUMM) 10.9 H Segmented Neutrophils (42.2 - 75.2 %) 82 H Band Neutrophils (0.0 - 5.0 %) 5 Absolute Lymphocytes (1.2 - 3.4 /CUMM) 0.4 L Lymphocytes (20.5 - 51.1 %) 5 L Monocytes (1.7 - 9.3 %) 8 Absolute Monocytes (0.10 - 0.60 /CUMM) 1.1 H Absolute Eosinophils (0.0 - 0.7 /CUMM) 0 Absolute Basophils (0.0 - 0.2 /CUMM) 0 Platelet Estimate (ADEQUATE) ADEQUATE Polychromasia 2+ Hypochromic-Microcytic 2+ Basophilic Stippling 1+ Anisocytosis 1+ Macrocytic Cells 1+ PUBS MCHC (33.0 - 37.0 G/DL) 33.8 12/22 12/22 0155 0000 Chemistry Sodium (137 - 145 mmol/L) 136 L Potassium (3.5 - 5.1 mmol/L) 4.5 Chloride (98 - 107 mmol/L) 101 Carbon Dioxide (22 - 30 mmol/L) 26 Anion Gap (5 - 16) 10 BUN (7 - 17 mg/dL) 50 H Creatinine (0.5 - 1.0 mg/dL) 4.0 H Estimated GFR (>60 ml/min) 11 L Glucose (65 - 99 mg/dL) 111 H Calcium (8.4 - 10.2 mg/dL) 8.1 L Phosphorus (2.5 - 4.5 mg/dL) 6.0 H Magnesium (1.6 - 2.3 mg/dL) 1.9 Total Bilirubin (0.2 - 1.3 mg/dL) 0.4 AST (14 - 36 U/L) 31 ALT (9 - 52 U/L) 42 Troponin I (< 0.11 ng/ml) 0.03 Cancelled Albumin (3.5 - 5.0 g/dL) 2.2 L Coagulation PT (9.4 - 12.5 SEC) 58.3 *H INR (0.90 - 1.19) 5.65 *H Hematology CBC w Diff NO MAN DIFF REQ WBC (4.8 - 10.8 /CUMM) 10.7 RBC (4.20 - 5.40 /CUMM) 2.48 L Hgb (12.0 - 16.0 G/DL) 7.5 L Hct (37 - 47 %) 22.7 L MCV (81.0 - 99.0 FL) 91.6 MCH (27.0 - 31.0 PG) 30.4 RDW (11.5 - 14.5 %) 16.8 H Plt Count (130 - 400 /CUMM) 189 MPV (7.4 - 10.4 FL) 10.0 Gran % (42.2 - 75.2 %) 82.0 H Lymphocytes % (20.5 - 51.1 %) 6.7 L Monocytes % (1.7 - 9.3 %) 11.0 H Eosinophils % (0 - 5 %) 0.3 Basophils % (0.0 - 2.0 %) 0 L Absolute Granulocytes (1.4 - 6.5 /CUMM) 8.8 H Absolute Lymphocytes (1.2 - 3.4 /CUMM) 0.7 L Absolute Monocytes (0.10 - 0.60 /CUMM) 1.2 H Absolute Eosinophils (0.0 - 0.7 /CUMM) 0 Absolute Basophils (0.0 - 0.2 /CUMM) 0 PUBS MCHC (33.0 - 37.0 G/DL) 33.2 CXR Findings: Cardiomegaly without acute process. Stable pacer electrodes. Impression/Plan Impression/Problem List Impression: 66 y/o F with PMHx of ESRD on HD and atrial fibrillation on warfarin, mitral stenosis s/p mechanical valve replacement who is admitted for L hip intertrochanteric failure 2/2 mechanical fall, now POD #3 s/p L hip IMHS, complicated by ABLA 2/2 hematoma at the surgical site while on bridging anticoagulation. Problem List: 1. Hematoma of left hip 2. Hematoma, postoperative 3. Acute blood loss anemia 4. Intertrochanteric fracture of left hip 5. ESRD (end stage renal disease) on dialysis 6. COPD (chronic obstructive pulmonary disease) 7. Chronic atrial fibrillation Pain Ratin Tomorrow's Labs & Rationales: CBC to monitor H/H in the setting of anemia BMP, Mg, Ca and Phos in the setting of ESRD on HD INR in the setting of supratherapeutic INR Plan Respiratory: #COPD: Not in acute exacerbation. On chronic steroids. Satting well on 3 L NC. CXR today with cardiomegaly but no acute process. * TRC and nebs. * Continue prior to admissionp rednisone 10 mg PO daily. * Continue prior to admission inhalers Spiriva and Symbicort. * Provide supplemental oxygen to keep SpO2 > 92%. Infectious Diseases: Remains afebrile. Persistent leukocytosis likely secondary to chronic steroid therapy. No signs or symptoms of infection. Cardiovascular: #Hypotension: Resolved. Remains hemodynamically stable. * Cardiology following. Appreciate their recs. * Downgrade to general medicine. * Continue antihypertensive medications amlodipine 10 mg PO QHS and Lasix 40 mg IV BID. #Chronic atrial fibrillation: Has a biventricular pacemaker that was placed following AV node ablation. Rhythm consistent with appropriate pacemaker function and underlying atrial fibrillation. * Cardiology following. Appreciate their recs. * Continue diltiazem 120 mg PO dialy. * Management of anticoagulation as below. Hematology: #ABLA: Significant drop in H/H POD #2 s/p L hip IMHS while on bridging anticoagulation secondary to a postoperative hematoma. S/p 2 units of pRBCs yesterday with improvement of H/H. 1 more unit of pRBCs administered during dialysis today with further increase in H/H to 8.4/24.7. * Continue to monitor H/H and transfuse as needed to keep Hgb > 8. * General surgery consulted for management of hematoma. Appreciate their recs. #Supratherapeutic INR: INR has further increased to 5.65 today despite holding warfarin. INR goal is 2.5-3.5 given mechanical mitral valve. * Cardiology following. Appreciate their recs. * Continue to hold IV heparin and warfarin. * Continue to monitor INR. * ALPs for DVT PPx. * Appreciate orthopedic surgery input regarding resuming anticoagulation therapy. Metabolic: #ESRD: Secondary to presumed hypertensive nephrosclerosis. S/p HD today with no fluid removal. * Nephrology following. Appreciate their recs. * Next dialysis session scheduled on Tuesday. * Continue Epogen 4000 units IV and Zemplar 2 mcg IV three times per week with HD. * Continue Nephrocaps tab PO daily and Sevelamer 2400 mg PO TIDAC. Alimentary: Renal Dialysis Diet Neurological: #Pain: * Dilaudid 2 mg IV Q4H PRN for severe pain (scale 7-10). * Continue oxycodone 15 mg PO Q6H PRN for moderate pain (scale 4-6). * Continue Tylenol 650 mg PO Q6H PRN for mild pain (scale 1-3). #Depression/anxiety: * Continue prior to admission sertraline 100 mg PO daily and Ativan 2 mg PO QPM. DVT/Prophylaxis: mechanical, pharmacological Code Status: Do Not Resucitate/Intubat Other: #L hip intertrochanteric fracture: POD #3 s/p L hip IMHS. * Management per orthopedic surgery team.
--- NOTE | 2016-12-22 07:56 | RADIOLOGY REPORT ---
EXAMINATION: XR PORTABLE CHEST CLINICAL INFORMATION: Evaluate for volume overload. Status post transfusion with 2 units of RBCs. COMPARISON: None TECHNIQUE: Portable AP view of the chest was obtained. FINDINGS: There is cardiomegaly with normal pulmonary vascularity. There are thin and thick pacer electrodes both in right ventricle. Both lungs are well-expanded without any acute pneumonic process. No gross bony abnormality. IMPRESSION: Cardiomegaly without acute process. Stable pacer electrodes.
[2016-12-22 08:00] VITALS: BP 114/70
--- NOTE | 2016-12-22 08:40 | NUR ---
Physical Therapy: Pt's chart reviewed today for treatment. Pt transferred to ICU after HD. Will place pt on hold at this time from skilled PT per protocol. Please reconsult when pt is medically stable and appropriate. Thank you.
--- NOTE | 2016-12-22 10:35 | NUR ---
@0800-PT ALERT AND ORIENTED, CALM AND COOP. PAIN 5/10 AT THIS TIME. PT RECIEVED ROXICODONE AT 0515. ASSISTED TO COMF POSITION. CONT ON 3LNC. COARSE BREATH SOUNDS ASCULTATED WITH KEVON NONPROD COUGH. O2SAT 95%-97%. PO LASIX ADMINISTERED THIS AM. PACED HR 60S. BP STABLE. PACER LCW. RENAL DIET PROVIDED, ADEQUATE APPETITE. ABD SOFT, +BS BUT PT STATES HAVING DIFF WITH BM-WILL RECIEVE MIRALAX THIS AM. PT STATES THAT SHE NORMALLY VOIDS BUT HAS NOT BEEN ABLE TO VOID. WILL BLADDER SCAN THIS AM AND ST CATH IF APPROPRIATE. L HIP DSG INTACT WITH MOD SS DRAINAGE NOTED TO UPPER HIP DSG-WILL CHANGE THIS AM. + CMS NOTED. ANABELL FISTULA NOTED WITH +BRUIT/+THRILL-PLAN FOR DIALYSIS TODAY, TIME UNKNOWN. CONT TO MONITOR CLOSELY. CALL MACIAS WITHIN REACH.
--- NOTE | 2016-12-22 10:39 | NUR ---
@0900-MEDICATED WITH DILAUDID 1MG PER PRN ORDER. PAIN 05/02. BLADDER SCAN AT THIS TIME AND OBTAINED READINGS BETWEEN 300-400. REPORTED TO HOUSESTAFF. WILL ST CATH AT 1000 WHEN DSG CHANGE TO L HIP.
--- NOTE | 2016-12-22 10:39 | PN- CRCU ---
Subjective HPI/Critical Care Issues: pt seen and examined hemodynamically stable hemoglobin 7.5 and stable plan for HD today no dizziness Objective Current Medications: Current Medications Sig/Tripp Start time Last Medication Dose Route Stop Time Status Admin Acetaminophen 650 MG Q6P PRN 12/19 1700 AC PO Albuterol Sulfate 3 ML EVERY 4 HRS/AWAKE 12/19 1999 AC 12/22 INH 0835 Albuterol Sulfate 2 PUF Q4-6 PRN PRN 12/19 1700 AC INH Amlodipine Besylate 10 MG AT BEDTIME 12/19 2200 AC 12/21 PO 2222 Bisacodyl 5 MG AT BEDTIME 12/19 2200 AC 12/21 PO 2222 Budesonide/ 2 PUF BID 12/19 220 AC 12/22 Formoterol Fumarate INH 0910 Cholecalciferol 1,000 IU DAILY 12/20 1000 AC 12/22 PO 0910 Dextrose/Sodium 1,000 ML Q13H 12/22 0045 CAN Chloride IV Diltiazem HCl 120 MG DAILY 12/20 1000 AC 12/22 PO 0909 Epoetin Jerson 4,000 UNIT MoWeFr 12/20 1653 AC IV Furosemide 40 MG 7:30 AM, & 4:30 PM 12/20 0730 AC 12/22 PO 0800 Heparin Sodium 5,000 UNIT .STK-MED ONE 12/21 1159 DC (Porcine) IV 12/21 1200 Heparin Sodium/ 25,000 UNIT Q24H 12/19 2100 DC 12/21 Dextrose IV 0352 Dextrose/Water 500 ML Hydromorphone HCl 2 MG Q4P PRN 12/22 1030 AC IV Hydromorphone HCl 1 MG Q4P PRN 12/20 1415 DC 12/22 IV 0911 Lorazepam 0.5 MG ONE 12/21 1145 DC 12/21 PO 12/21 1146 1213 Lorazepam 2 MG QPM 12/19 2200 AC 12/21 PO 2218 Morphine Sulfate 10 MG .STK-MED ONE 12/21 1720 DC IM 12/21 1721 Multivitamins 1 TAB DAILY 12/20 1000 AC 12/22 PO 0909 Oxycodone HCl 15 MG Q6 PRN 12/19 1700 AC 12/22 PO 0517 Paricalcitol 2 MCG MoWeFr 12/20 1653 AC IV Patient Medication 1 ED .STK-MED ONE 12/21 1416 DC Teaching ED 12/21 1417 Polyethylene Glycol 17 GM DAILY 12/20 1000 AC 12/22 PO 0909 Prednisone 10 MG DAILY 12/20 1000 AC 12/22 PO 0909 Senna 187 MG AT BEDTIME 12/19 2200 AC 12/21 PO 2222 Sertraline HCl 100 MG DAILY 12/20 1000 AC 12/22 PO 0910 Sevelamer HCl 2,400 MG TIDAC 12/19 1700 AC 12/22 PO 0800 Tiotropium [place] 1 PUF DAILY 12/20 1000 AC 12/22 INH 0911 Vital Signs & I&O Last 24 Hrs of Vitals and I&O: Vital Signs Date Time Temp Pulse Resp B/P Pulse O2 O2 Flow FiO2 Ox Delivery Rate 12/22 08 95 Nasal 3.0L Cannula 12/22 08 97.3 69 17 114/70 99 Nasal 3.0L Cannula 12/22 0400 99 Nasal 3.0L Cannula 12/22 0000 97 Nasal 3.0L Cannula 12/22 0000 97.1 70 18 118/60 97 Nasal 3.0L Cannula 12/21 2222 80 20 98/50 12/21 1999 96 Nasal 2.0L Cannula 12/21 1999 97.5 70 20 100/60 96 Nasal 2.0L Cannula 12/21 1721 96 Nasal 3.0L Cannula 12/21 1700 98.6 70 20 100/50 94 Nasal 2.0L Cannula 12/21 1409 Nasal 3.0L Cannula Intake & Output 12/22 1600 12/22 0800 12/22 0000 Intake Total 200 240 Output Total 0 Balance 200 240 Intake, Oral 200 240 Number 0 Bowel Movements Output, Urine 0 Patient 176 lb 186 lb Weight Exam Other Physical Findings: gen awake and alert heent ncat cvs s1, s2 lungs rare rhonchi abd soft bs+ ext dressing intact Results Last 24 Hrs of Lab Results: Laboratory Tests 12/22/16 0500: Sodium Cancelled, Potassium Cancelled, Chloride Cancelled, Carbon Dioxide Cancelled, Anion Gap Cancelled, BUN Cancelled, Creatinine Cancelled, Glucose Cancelled, Calcium Cancelled, Phosphorus Cancelled, Magnesium Cancelled, Total Bilirubin Cancelled, AST Cancelled, ALT Cancelled, Albumin Cancelled, PT Cancelled, INR Cancelled 12/22/16 0155: Anion Gap 10, Estimated GFR 11 L, Glucose 111 H, Calcium 8.1 L, Phosphorus 6.0 H, Magnesium 1.9, Total Bilirubin 0.4, AST 31, ALT 42, Troponin I 0.03, Albumin 2.2 L, PT 58.3 *H, INR 5.65 *H, CBC w Diff NO MAN DIFF REQ, RBC 2.48 L , MCV 91.6, MCH 30.4, RDW 16.8 H, MPV 10.0, Gran % 82.0 H, Lymphocytes % 6.7 L, Monocytes % 11.0 H, Eosinophils % 0.3, Basophils % 0 L, Absolute Granulocytes 8.8 H, Absolute Lymphocytes 0.7 L, Absolute Monocytes 1.2 H, Absolute Eosinophils 0, Absolute Basophils 0, PUBS MCHC 33.2 12/22/16 0000: Troponin I Cancelled 12/21/16 1736: Troponin I 0.03, CBC w Diff NO MAN DIFF REQ, RBC 2.61 L, MCV 91.7, MCH 30.1, RDW 16.0 H, MPV 9.1, Gran % 87.6 H, Lymphocytes % 4.9 L, Monocytes % 7.4, Eosinophils % 0.1, Basophils % 0 L, Absolute Granulocytes 11.8 H, Absolute Lymphocytes 0.7 L, Absolute Monocytes 1.0 H, Absolute Eosinophils 0, Absolute Basophils 0, PUBS MCHC 32.8 L 12/21/16 1210: Troponin I 0.03, CBC w Diff NO MAN DIFF REQ, RBC 1.95 L, MCV 92.9, MCH 30.4, RDW 15.4 H, MPV 8.2, Gran % 87.7 H, Lymphocytes % 3.9 L, Monocytes % 8.4, Eosinophils % 0, Basophils % 0 L, Absolute Granulocytes 13.6 H, Absolute Lymphocytes 0.6 L, Absolute Monocytes 1.3 H, Absolute Eosinophils 0, Absolute Basophils 0, PUBS MCHC 32.7 L Impression/Plan Impression/Plan Impression/Plan: Impression 66 year old woman - retroperitoneal bleed in the setting of a hip fracture - mechanical mitral valve - COPD Plan - surgical consultation appreciated - f/u orthopedics - s/p blood transfusion, plan for 1 unit today during HD - monitor cbc, coags, hemodynamics - HD tomorrow and will arrange transfusion if needed at that time if no urgent need, if an urgent need arises a central access catheter will be considered, will consider proline if a peripheral vein cannot be found - DNR/DNI - TRC/Nebs TTS 35 min Code Status: Do Not Resucitate/Intubat
--- NOTE | 2016-12-22 10:41 | NUR ---
@1000-INC CARE PROVIDED. PT DISIMPACTED LARGE AMT OF LIGHT BROWN HARD STOOL. MIRALAX ADMINISTERED. DSG CHANGE TO L HIP-XEROFORM, TELFA, FLUFF AND ABD PADS PLACED. STAPLE LINE INTACT WITH MIN RED DRAINAGE FROM STAPLE SITE. PT ST CATH AT THIS TIME AND OBTAINED 400ML OF CLEAR YELLOW URINE. HOUSESTAFF AWARE. CONT TO MONITOR, CALL [facility] WITHIN REACH.
--- NOTE | 2016-12-22 10:49 | PN- Nephrology ---
See Addendum Assessment/Plan Assessment: ESRD - Had HD yesterday for clearance only while getting blood products. Chest x-ray clear. No fluid removal with dialysis today. Hip fracture c/b bleeding - Hg appropriately bumped but has started to downtrend. Remains with relative hypotension. To get 1U PRBC with dialysis today. Will cont Epogen which she is on as an outpatient. 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 Suggestion: -Dialysis today - no fluid removal -Next dialysis will be Tuesday -1U PRBC with dialysis -Cont Epogen -Cont Zemplar -Would touch base with Cards/Ortho when to restart anticoagulation Subjective Subjective: Pt transfused 2U PRBC yesterday with dialysis Hg 5.9->7.9->7.5 Transferred to ICU for closer monitoring BP low of 98/50 last night - SBP 110's this AM (relative hypotension for her) Pt feeling OK Objective Vital Signs and I&Os Vital Signs Date Time Temp Pulse Resp B/P Pulse O2 O2 Flow FiO2 Ox Delivery Rate 12/22 0800 95 Nasal 3.0L Cannula 12/22 0800 97.3 69 17 114/70 99 Nasal 3.0L Cannula 12/22 0400 99 Nasal 3.0L Cannula 12/22 0000 97 Nasal 3.0L Cannula 12/22 0000 97.1 70 18 118/60 97 Nasal 3.0L Cannula 12/21 2222 80 20 98/50 12/21 1999 96 Nasal 2.0L Cannula 12/21 1999 97.5 70 20 100/60 96 Nasal 2.0L Cannula 12/21 1721 96 Nasal 3.0L Cannula 12/21 1700 98.6 70 20 100/50 94 Nasal 2.0L Cannula 12/21 1409 Nasal 3.0L Cannula Intake & Output 12/22 1600 12/22 0400 12/21 1600 12/21 0400 12/20 1600 12/20 0400 Intake Total 091 333 7812 670 904.8 512.2 Output Total 0 200 Balance 633 791 2521 670 704.8 512.2 Intake, IV 440 310 564.8 32.2 Intake, Oral 200 240 940 360 340 480 Number 0 1 1 1 Bowel Movements Output, Urine 0 200 Patient 176 lb 186 lb 173 lb 170 lb Weight Physical Exam: EXAM TYPE: RAD - XRY-PORTABLE CHEST XRAY EXAMINATION: XR PORTABLE CHEST CLINICAL INFORMATION: History of COPD. Shortness of breath with increased work of breathing. COMPARISON: Several prior chest x-rays, most recent of which is dated 12/17/2016. TECHNIQUE: Portable AP semierect view of the chest was obtained. FINDINGS: A right jugular central venous line is in place with tip poorly visualized, but likely in the proximal SVC. The cardiomediastinal silhouette is enlarged and there is persistent central vascular congestion and mild interstitial edema with bilateral small pleural effusions. Superimposed bibasilar opacities are seen, unchanged. Bony structures are unremarkable. IMPRESSION: 1. Right jugular central venous line tip poorly visualized, likely in the proximal SVC. 2. Lung findings most consistent with mild pulmonary edema with bilateral pleural effusions and bibasilar subsegmental atelectasis. Clinical correlation requested. Current Medications: Current Medications Sig/Tripp Start time Last Medication Dose Route Stop Time Status Admin Acetaminophen 650 MG Q6P PRN 12/19 1700 AC PO Albuterol Sulfate 3 ML EVERY 4 HRS/AWAKE 12/19 2000 AC 12/22 INH 0835 Albuterol Sulfate 2 PUF Q4-6 PRN PRN 12/19 1700 AC INH Amlodipine Besylate 10 MG AT BEDTIME 12/19 2200 AC 12/21 PO 2222 Bisacodyl 5 MG AT BEDTIME 12/19 2200 AC 12/21 PO 2222 Budesonide/ 2 PUF BID 12/19 2200 AC 12/22 Formoterol Fumarate INH 0910 Cholecalciferol 1,000 IU DAILY 12/20 1000 AC 12/22 PO 0910 Dextrose/Sodium 1,000 ML Q13H 12/22 0045 CAN Chloride IV Diltiazem HCl 120 MG DAILY 12/20 1000 AC 12/22 PO 0909 Epoetin [place] 4,000 UNIT MoWeFr 12/20 1653 AC IV Furosemide 40 MG 7:30 AM, & 4:30 PM 12/20 0730 AC 12/22 PO 0800 Heparin Sodium 5,000 UNIT .STK-MED ONE 12/21 1159 DC (Porcine) IV 12/21 1200 Heparin Sodium/ 25,000 UNIT Q24H 12/19 2100 DC 12/21 Dextrose IV 0352 Dextrose/Water 500 ML Hydromorphone HCl 2 MG Q4P PRN 12/22 1030 AC IV Hydromorphone HCl 1 MG Q4P PRN 12/20 1415 DC 12/22 IV 0911 Lorazepam 0.5 MG ONE ONE 12/21 1145 DC 12/21 PO 12/21 1146 1213 Lorazepam 2 MG QPM 12/19 2200 AC 12/21 PO 2218 Morphine Sulfate 10 MG .STK-MED ONE 12/21 1720 DC IM 12/21 1721 Multivitamins 1 TAB DAILY 12/20 1000 AC 12/22 PO 0909 Oxycodone HCl 15 MG Q6 PRN 12/19 1700 AC 12/22 PO 0517 Paricalcitol 2 MCG MoWeFr 12/20 1653 AC IV Patient Medication 1 ED .STK-MED ONE 12/21 1416 DC Teaching ED 12/21 1417 Polyethylene Glycol 17 GM DAILY 12/20 1000 AC 12/22 PO 0909 Prednisone 10 MG DAILY 12/20 1000 AC 12/22 PO 0909 Senna 187 MG AT BEDTIME 12/19 2200 AC 12/21 PO 2222 Sertraline HCl 100 MG DAILY 12/20 1000 AC 12/22 PO 0910 Sevelamer HCl 2,400 MG TIDAC 12/19 1700 AC 12/22 PO 0800 Tiotropium [place] 1 PUF DAILY 12/20 1000 AC 12/22 INH 0911 Results Pertinent Lab Results: Laboratory Tests 12/22 12/22 12/22 0500 0155 0000 Chemistry Sodium (137 - 145 mmol/L) Cancelled 136 L Potassium (3.5 - 5.1 mmol/L) Cancelled 4.5 Chloride (98 - 107 mmol/L) Cancelled 101 Carbon Dioxide (22 - 30 mmol/L) Cancelled 26 Anion Gap (5 - 16) Cancelled 10 BUN (7 - 17 mg/dL) Cancelled 50 H Creatinine (0.5 - 1.0 mg/dL) Cancelled 4.0 H Estimated GFR (>60 ml/min) 11 L Glucose (65 - 99 mg/dL) Cancelled 111 H Calcium (8.4 - 10.2 mg/dL) Cancelled 8.1 L Phosphorus (2.5 - 4.5 mg/dL) Cancelled 6.0 H Magnesium (1.6 - 2.3 mg/dL) Cancelled 1.9 Total Bilirubin (0.2 - 1.3 mg/dL) Cancelled 0.4 AST (14 - 36 U/L) Cancelled 31 ALT (9 - 52 U/L) Cancelled 42 Troponin I (< 0.11 ng/ml) 0.03 Cancelled Albumin (3.5 - 5.0 g/dL) Cancelled 2.2 L Coagulation PT (9.4 - 12.5 SEC) Cancelled 58.3 *H INR (0.90 - 1.19) Cancelled 5.65 *H Hematology CBC w Diff NO MAN DIFF REQ WBC (4.8 - 10.8 /CUMM) 10.7 RBC (4.20 - 5.40 /CUMM) 2.48 L Hgb (12.0 - 16.0 G/DL) 7.5 L Hct (37 - 47 %) 22.7 L MCV (81.0 - 99.0 FL) 91.6 MCH (27.0 - 31.0 PG) 30.4 RDW (11.5 - 14.5 %) 16.8 H Plt Count (130 - 400 /CUMM) 189 MPV (7.4 - 10.4 FL) 10.0 Gran % (42.2 - 75.2 %) 82.0 H Lymphocytes % (20.5 - 51.1 %) 6.7 L Monocytes % (1.7 - 9.3 %) 11.0 H Eosinophils % (0 - 5 %) 0.3 Basophils % (0.0 - 2.0 %) 0 L Absolute Granulocytes (1.4 - 6.5 /CUMM) 8.8 H Absolute Lymphocytes (1.2 - 3.4 /CUMM) 0.7 L Absolute Monocytes (0.10 - 0.60 /CUMM) 1.2 H Absolute Eosinophils (0.0 - 0.7 /CUMM) 0 Absolute Basophils (0.0 - 0.2 /CUMM) 0 PUBS MCHC (33.0 - 37.0 G/DL) 33.2 12/21 12/21 1736 1210 Chemistry Troponin I (< 0.11 ng/ml) 0.03 0.03 Hematology CBC w Diff NO MAN DIFF REQ NO MAN DIFF REQ WBC (4.8 - 10.8 /CUMM) 13.5 H 15.5 H RBC (4.20 - 5.40 /CUMM) 2.61 L 1.95 L Hgb (12.0 - 16.0 G/DL) 7.9 L 5.9 *L Hct (37 - 47 %) 23.9 L 18.1 *L MCV (81.0 - 99.0 FL) 91.7 92.9 MCH (27.0 - 31.0 PG) 30.1 30.4 RDW (11.5 - 14.5 %) 16.0 H 15.4 H Plt Count (130 - 400 /CUMM) 197 233 MPV (7.4 - 10.4 FL) 9.1 8.2 Gran % (42.2 - 75.2 %) 87.6 H 87.7 H Lymphocytes % (20.5 - 51.1 %) 4.9 L 3.9 L Monocytes % (1.7 - 9.3 %) 7.4 8.4 Eosinophils % (0 - 5 %) 0.1 0 Basophils % (0.0 - 2.0 %) 0 L 0 L Absolute Granulocytes (1.4 - 6.5 /CUMM) 11.8 H 13.6 H Absolute Lymphocytes (1.2 - 3.4 /CUMM) 0.7 L 0.6 L Absolute Monocytes (0.10 - 0.60 /CUMM) 1.0 H 1.3 H Absolute Eosinophils (0.0 - 0.7 /CUMM) 0 0 Absolute Basophils (0.0 - 0.2 /CUMM) 0 0 PUBS MCHC (33.0 - 37.0 G/DL) 32.8 L 32.7 L 12/21 12/21 12/21 12/20 0930 0720 0140 1300 Chemistry Sodium (137 - 145 mmol/L) 133 L Potassium (3.5 - 5.1 mmol/L) 4.8 Chloride (98 - 107 mmol/L) 97 L Carbon Dioxide (22 - 30 mmol/L) 24 Anion Gap (5 - 16) 13 BUN (7 - 17 mg/dL) 55 H Creatinine (0.5 - 1.0 mg/dL) 4.2 H Estimated GFR (>60 ml/min) 11 L BUN/Creatinine Ratio (7 - 25 %) 13.1 Coagulation PT (9.4 - 12.5 SEC) 32.7 H INR (0.90 - 1.19) 3.15 H APTT (25 - 37 SEC) 50 H 93 H 75 H Hematology CBC w Diff MAN DIFF ORDERED WBC (4.8 - 10.8 /CUMM) 17.6 H RBC (4.20 - 5.40 /CUMM) 2.08 L Hgb (12.0 - 16.0 G/DL) 6.4 *L Hct (37 - 47 %) 19.7 *L MCV (81.0 - 99.0 FL) 94.6 MCH (27.0 - 31.0 PG) 30.7 RDW (11.5 - 14.5 %) 15.3 H Plt Count (130 - 400 /CUMM) 240 MPV (7.4 - 10.4 FL) 9.6 Gran % (42.2 - 75.2 %) 86.8 H Lymphocytes % (20.5 - 51.1 %) 5.7 L Monocytes % (1.7 - 9.3 %) 7.5 Eosinophils % (0 - 5 %) 0 Basophils % (0.0 - 2.0 %) 0 L Absolute Granulocytes (1.4 - 6.5 /CUMM) 15.3 H Segmented Neutrophils (42.2 - 75.2 %) 82 H Band Neutrophils (0.0 - 5.0 %) 2 Absolute Lymphocytes (1.2 - 3.4 /CUMM) 1.0 L Lymphocytes (20.5 - 51.1 %) 7 L Monocytes (1.7 - 9.3 %) 8 Absolute Monocytes (0.10 - 0.60 /CUMM) 1.3 H Absolute Eosinophils (0.0 - 0.7 /CUMM) 0 Absolute Basophils (0.0 - 0.2 /CUMM) 0 Metamyelocytes (0.0 - 1.0 %) 1 Nucleated RBCs (0.0 - 0.0 /100WBC) 1 H Platelet Estimate (ADEQUATE) ADEQUATE Polychromasia Hypochromic-Microcytic 2+ Poikilocytosis 1+ Basophilic Stippling Anisocytosis 1+ PUBS MCHC (33.0 - 37.0 G/DL) 32.5 L 12/20 12/20 12/20 12/20 1100 0800 0654 0600 Chemistry Calcium (8.4 - 10.2 mg/dL) 8.3 L Coagulation PT Cancelled Cancelled INR Cancelled Cancelled APTT Cancelled Cancelled 12/20 12/19 0420 1200 Chemistry Sodium (137 - 145 mmol/L) 135 L Potassium (3.5 - 5.1 mmol/L) 5.4 H Chloride (98 - 107 mmol/L) 102 Carbon Dioxide (22 - 30 mmol/L) 21 L Anion Gap (5 - 16) 12 BUN (7 - 17 mg/dL) 74 H Creatinine (0.5 - 1.0 mg/dL) 5.3 *H Estimated GFR (>60 ml/min) 8 L BUN/Creatinine Ratio (7 - 25 %) 14.0 Coagulation PT (9.4 - 12.5 SEC) 16.6 H Cancelled INR (0.90 - 1.19) 1.59 H Cancelled APTT (25 - 37 SEC) 37 Hematology CBC w Diff MAN DIFF ORDERED WBC (4.8 - 10.8 /CUMM) 17.1 H RBC (4.20 - 5.40 /CUMM) 3.01 L Hgb (12.0 - 16.0 G/DL) 9.1 L Hct (37 - 47 %) 28.6 L MCV (81.0 - 99.0 FL) 95.0 MCH (27.0 - 31.0 PG) 30.3 RDW (11.5 - 14.5 %) 15.6 H Plt Count (130 - 400 /CUMM) 222 MPV (7.4 - 10.4 FL) 8.6 Gran % (42.2 - 75.2 %) 95.3 H Lymphocytes % (20.5 - 51.1 %) 2.1 L Monocytes % (1.7 - 9.3 %) 2.6 Eosinophils % (0 - 5 %) 0 Basophils % (0.0 - 2.0 %) 0 L Absolute Granulocytes (1.4 - 6.5 /CUMM) 16.3 H Absolute Lymphocytes (1.2 - 3.4 /CUMM) 0.4 L Absolute Monocytes (0.10 - 0.60 /CUMM) 0.5 Absolute Eosinophils (0.0 - 0.7 /CUMM) 0 Absolute Basophils (0.0 - 0.2 /CUMM) 0 Platelet Estimate (ADEQUATE) ADEQUATE Hypochromic-Microcytic 1+ Poikilocytosis 1+ Ovalocytes 1+ PUBS MCHC (33.0 - 37.0 G/DL) 31.9 L Imaging/Other Studies: EXAM TYPE: RAD - XRY-PORTABLE CHEST XRAY EXAMINATION: XR PORTABLE CHEST CLINICAL INFORMATION: Evaluate for volume overload. Status post transfusion with 2 units of RBCs. COMPARISON: None TECHNIQUE: Portable AP view of the chest was obtained. FINDINGS: There is cardiomegaly with normal pulmonary vascularity. There are thin and thick pacer electrodes both in right ventricle. Both lungs are well-expanded without any acute pneumonic process. No gross bony abnormality. IMPRESSION: Cardiomegaly without acute process. Stable pacer electrodes. EXAM TYPE: RAD - XRY-PORTABLE CHEST XRAY EXAMINATION: XR PORTABLE CHEST CLINICAL INFORMATION: Evaluate for volume overload. Status post transfusion with 2 units of RBCs. COMPARISON: None TECHNIQUE: Portable AP view of the chest was obtained. FINDINGS: There is cardiomegaly with normal pulmonary vascularity. There are thin and thick pacer electrodes both in right ventricle. Both lungs are well-expanded without any acute pneumonic process. No gross bony abnormality.
--- NOTE | 2016-12-22 14:14 | PN- Att Addend ---
Attending Addendum Attending Brief Note After hemodialysis yesterday her blood pressure dropped was moved to the intensive care unit, also found out that her drop in hematocrit and hemoglobin was due to a big hematoma at the site of the surgery. She was transfused and hemoglobin and hematocrit are up a little bit she still looks pale throughout her vital signs are stable she's still in pain from the surgery. Continue close observation, a stable may be transferred out of the intensive care unit later on today or tomorrow morning. Follow-up allergy and nephrology recommendations Current Medications Sig/Tripp Start time Last Medication Dose Route Stop Time Status Admin Acetaminophen 650 MG Q6P PRN 12/19 1700 AC PO Albuterol Sulfate 3 ML EVERY 4 HRS/AWAKE 12/19 1999 AC 12/22 INH 1223 Albuterol Sulfate 2 PUF Q4-6 PRN PRN 12/19 1700 AC INH Amlodipine Besylate 10 MG AT BEDTIME 12/19 2200 AC 12/21 PO 2222 Bisacodyl 5 MG AT BEDTIME 12/19 2200 AC 12/21 PO 2222 Budesonide/ 2 PUF BID 12/19 2200 AC 12/22 Formoterol Fumarate INH 0910 Cholecalciferol 1,000 IU DAILY 12/20 1000 AC 12/22 PO 0910 Dextrose/Sodium 1,000 ML Q13H 12/22 0045 CAN Chloride IV Diltiazem HCl 120 MG DAILY 12/20 1000 AC 12/22 PO 0909 Epoetin [place] 4,000 UNIT MoWeFr 12/20 1653 AC 12/22 IV 1315 Ferric Sodium 125 MG QWED 12/29 0700 CAN Gluconate Complex IV Ferric Sodium 125 MG QWED@1200 12/22 1200 AC 12/22 Gluconate Complex IV 1300 Sodium Chloride 100 ML Furosemide 40 MG 7:30 AM, & 4:30 PM 12/20 0730 AC 12/22 PO 0800 Hydromorphone HCl 2 MG Q4P PRN 12/22 1030 AC 12/22 IV 1403 Hydromorphone HCl 1 MG Q4P PRN 12/20 1415 DC 12/22 IV 0911 Lorazepam 2 MG QPM 12/19 2200 AC 12/21 PO 2218 Morphine Sulfate 10 MG .STK-MED ONE 12/21 1720 DC IM 12/21 1721 Multivitamins 1 TAB DAILY 12/20 1000 AC 12/22 PO 0909 Oxycodone HCl 15 MG Q6 PRN 12/19 1700 AC 12/22 PO 0517 Paricalcitol 2 MCG MoWeFr 12/20 1653 AC 12/22 IV 1315 Patient Medication 1 ED .[facility]-MED ONE 12/21 1416 [place] Teaching ED 12/21 1417 Polyethylene Glycol 17 GM DAILY 12/20 1000 AC 12/22 PO 0909 Prednisone 10 MG DAILY 12/20 1000 AC 12/22 PO 0909 Senna 187 MG AT BEDTIME 12/19 2200 AC 12/21 PO 2222 Sertraline HCl 100 MG DAILY 12/20 1000 AC 12/22 PO 0910 Sevelamer HCl 2,400 MG TIDAC 12/19 1700 AC 12/22 PO 0800 Tiotropium [place] 1 PUF DAILY 12/20 1000 AC 12/22 INH 0911 Laboratory Tests 12/22/16 0500: Sodium Cancelled, Potassium Cancelled, Chloride Cancelled, Carbon Dioxide Cancelled, Anion Gap Cancelled, BUN Cancelled, Creatinine Cancelled, Glucose Cancelled, Calcium Cancelled, Phosphorus Cancelled, Magnesium Cancelled, Total Bilirubin Cancelled, AST Cancelled, ALT Cancelled, Albumin Cancelled, PT Cancelled, INR Cancelled 12/22/16 0155: Anion Gap 10, Estimated GFR 11 L, Glucose 111 H, Calcium 8.1 L, Phosphorus 6.0 H, Magnesium 1.9, Total Bilirubin 0.4, AST 31, ALT 42, Troponin I 0.03, Albumin 2.2 L, PT 58.3 *H, INR 5.65 *H, CBC w Diff NO MAN DIFF REQ, RBC 2.48 L , MCV 91.6, MCH 30.4, RDW 16.8 H, MPV 10.0, Gran % 82.0 H, Lymphocytes % 6.7 L, Monocytes % 11.0 H, Eosinophils % 0.3, Basophils % 0 L, Absolute Granulocytes 8.8 H, Absolute Lymphocytes 0.7 L, Absolute Monocytes 1.2 H, Absolute Eosinophils 0, Absolute Basophils 0, PUBS MCHC 33.2 12/22/16 0000: Troponin I Cancelled 12/21/16 1736: Troponin I 0.03, CBC w Diff NO MAN DIFF REQ, RBC 2.61 L, MCV 91.7, MCH 30.1, RDW 16.0 H, MPV 9.1, Gran % 87.6 H, Lymphocytes % 4.9 L, Monocytes % 7.4, Eosinophils % 0.1, Basophils % 0 L, Absolute Granulocytes 11.8 H, Absolute Lymphocytes 0.7 L, Absolute Monocytes 1.0 H, Absolute Eosinophils 0, Absolute Basophils 0, PUBS MCHC 32.8 L 12/21/16 1210: Troponin I 0.03, CBC w Diff NO MAN DIFF REQ, RBC 1.95 L, MCV 92.9, MCH 30.4, RDW 15.4 H, MPV 8.2, Gran % 87.7 H, Lymphocytes % 3.9 L, Monocytes % 8.4, Eosinophils % 0, Basophils % 0 L, Absolute Granulocytes 13.6 H, Absolute Lymphocytes 0.6 L, Absolute Monocytes 1.3 H, Absolute Eosinophils 0, Absolute Basophils 0, PUBS MCHC 32.7 L 12/21/16 0930: APTT 50 H 12/21/16 0720: Anion Gap 13, Estimated GFR 11 L, BUN/Creatinine Ratio 13.1, PT 32.7 H, INR 3.15 H, CBC w Diff MAN DIFF ORDERED, RBC 2.08 L, MCV 94.6, MCH 30.7, RDW 15.3 H, MPV 9.6, Gran % 86.8 H, Lymphocytes % 5.7 L, Monocytes % 7.5, Eosinophils % 0, Basophils % 0 L, Absolute Granulocytes 15.3 H, Segmented Neutrophils 82 H, Band Neutrophils 2, Absolute Lymphocytes 1.0 L, Lymphocytes 7 L, Monocytes 8, Absolute Monocytes 1.3 H, Absolute Eosinophils 0, Absolute Basophils 0, Metamyelocytes 1, Nucleated RBCs 1 H, Platelet Estimate ADEQUATE, Polychromasia , Hypochromic-Microcytic 2+, Poikilocytosis 1+, Basophilic Stippling , Anisocytosis 1+, PUBS MCHC 32.5 L 12/21/16 0140: APTT 93 H Vital Signs Date Time Temp Pulse Resp B/P Pulse O2 O2 Flow FiO2 Ox Delivery Rate 12/22 1230 94 Nasal 3.0L Cannula 12/22 1128 Nasal 3.0L Cannula 12/22 08 95 Nasal 3.0L Cannula 12/22 08 97.3 69 17 114/70 99 Nasal 3.0L Cannula Intake & Output 12/22 1600 Intake Total 400 Output Total 400 Balance 0 Intake, IV 40 Intake, Oral 360 Number 1 Bowel Movements Output, Urine 400
[2016-12-22 16:00] VITALS: BP 98/50
[2016-12-22 18:01] LABS: ABSOLUTE BASOPHIL COUNT 0 /CUMM (0.0-0.2); ABSOLUTE EOSINOPHIL COUNT 0 /CUMM (0.0-0.7); ABSOLUTE GRANULOCYTE CT 10.9 /CUMM (1.4-6.5); ABSOLUTE LYMPH COUNT 0.4 /CUMM (1.2-3.4); ABSOLUTE MONOCYTE COUNT 1.1 /CUMM (0.10-0.60); BASOPHIL % 0.1 % (0.0-2.0); EOSINOPHIL % 0.2 % (0-5); GRANULOCYTE % 88.1 % (42.2-75.2); HEMATOCRIT 24.7 % (37-47); MEAN CORPUSCULAR HGB 30.6 PG (27.0-31.0); MEAN CORPUSCULAR HGB CONC 33.8 G/DL (33.0-37.0); MEAN CORPUSCULAR VOLUME 90.6 FL (81.0-99.0); MEAN PLATELET VOLUME 8.9 FL (7.4-10.4); PLATELET COUNT 179 /CUMM (130-400); RBC DISTRIBUTION WIDTH 16.6 % (11.5-14.5); RED BLOOD CELL CT 2.73 /CUMM (4.20-5.40); WHITE BLOOD CELL COUNT 12.4 /CUMM (4.8-10.8)
--- NOTE | 2016-12-22 18:20 | PN- Cardiology ---
Subjective Subjective: Events of overnight reviewed. Complains of feeling weak but denies any chest discomfort or palpitations. Feels as though her breathing is at baseline. Rhythm shows appropriate pacemaker function and underlying atrial fibrillation. Objective Vital Signs and I&Os Vital Signs Date Time Temp Pulse Resp B/P Pulse O2 O2 Flow FiO2 Ox Delivery Rate 12/22 1723 96 Nasal 3.0L Cannula 12/22 1600 96 Nasal 3.0L Cannula 12/22 1600 97.7 72 24 98/50 96 Nasal 3.0L Cannula 12/22 1230 94 Nasal 3.0L Cannula 12/22 1128 Nasal 3.0L Cannula 12/22 0845 97 Nasal 3.0L Cannula 12/22 0800 95 Nasal 3.0L Cannula 12/22 08 97.3 69 17 114/70 99 Nasal 3.0L Cannula 12/22 0400 99 Nasal 3.0L Cannula 12/22 0000 97 Nasal 3.0L Cannula 12/22 0000 97.1 70 18 118/60 97 Nasal 3.0L Cannula 12/21 2222 80 20 98/50 12/21 1999 96 Nasal 2.0L Cannula 12/21 1999 97.5 70 20 100/60 96 Nasal 2.0L Cannula Intake & Output 12/22 1600 12/22 0800 12/22 0000 12/21 1600 12/21 0800 12/21 0000 Intake Total 400 200 240 840 540 670 Output Total 400 0 Balance 0 200 240 840 540 670 Intake, IV 40 140 300 310 Intake, Oral 360 200 240 700 240 360 Number 1 0 1 Bowel Movements Output, Urine 400 0 Patient 176 lb 186 lb 173 lb Weight Physical Exam: Well developed, well-nourished pale appearing female in no acute distress with nasal oxygen in place. Vital signs: See above. Lungs: Decreased breath sounds and occasional rhonchi. Heart: S1, S2 with appropriate mechanical valve sounds. Abdomen: Soft, nontender, positive bowel sounds. Extremities: Trace lower extremity edema. Current Medications: Current Medications Sig/Tripp Start time Last Medication Dose Route Stop Time Status Admin Acetaminophen 650 MG Q6P PRN 12/19 1699 AC PO Albuterol Sulfate 3 ML EVERY 4 HRS/AWAKE 12/19 1999 AC 12/22 INH 1223 Albuterol Sulfate 2 PUF Q4-6 PRN PRN 12/19 1699 AC INH Amlodipine Besylate 10 MG AT BEDTIME 12/19 2199 AC 12/21 PO 2222 Bisacodyl 5 MG AT BEDTIME 12/19 2200 AC 12/21 PO 2222 Budesonide/ 2 PUF BID 12/19 2200 AC 12/22 Formoterol Fumarate INH 0910 Cholecalciferol 1,000 IU DAILY 12/20 1000 AC 12/22 PO 0910 Dextrose/Sodium 1,000 ML Q13H 12/22 0045 CAN Chloride IV Diltiazem HCl 120 MG DAILY 12/20 1000 AC 12/22 PO 0909 Epoetin Jerson 4,000 UNIT MoWeFr 12/20 1653 AC 12/22 IV 1315 Ferric Sodium 125 MG QWED 12/29 0700 CAN Gluconate Complex IV Ferric Sodium 125 MG QWED@1200 12/22 1200 AC 12/22 Gluconate Complex IV 1300 Sodium Chloride 100 ML Furosemide 40 MG 7:30 AM, & 4:30 PM 12/20 0730 AC 12/22 PO 1603 Hydromorphone HCl 2 MG Q4P PRN 12/22 1030 AC 12/22 IV 1403 Hydromorphone HCl 1 MG Q4P PRN 12/20 1415 DC 12/22 IV 0911 Lorazepam 2 MG QPM 12/19 2200 AC 12/21 PO 2218 Multivitamins 1 TAB DAILY 12/20 1000 AC 12/22 PO 0909 Oxycodone HCl 15 MG Q6 PRN 12/19 1700 AC 12/22 PO 0517 Paricalcitol 2 MCG MoWeFr 12/20 1653 AC 12/22 IV 1315 Polyethylene Glycol 17 GM DAILY 12/20 1000 AC 12/22 PO 0909 Prednisone 10 MG DAILY 12/20 1000 AC 12/22 PO 0909 Senna 187 MG AT BEDTIME 12/19 2200 AC 12/21 PO 2222 Sertraline HCl 100 MG DAILY 12/20 1000 AC 12/22 PO 0910 Sevelamer HCl 2,400 MG TIDAC 12/19 1700 AC 12/22 PO 1603 Tiotropium [place] 1 PUF DAILY 12/20 1000 AC 12/22 INH 0911 Results Last 48 Hrs of Labs/Mics: Laboratory Tests 12/22/16 1712: CBC w Diff Pending, WBC Pending, RBC Pending, Hgb Pending, Hct Pending, MCV Pending, MCH Pending, RDW Pending, Plt Count Pending, MPV Pending, PUBS MCHC Pending 12/22/16 0500: Sodium Cancelled, Potassium Cancelled, Chloride Cancelled, Carbon Dioxide Cancelled, Anion Gap Cancelled, BUN Cancelled, Creatinine Cancelled, Glucose Cancelled, Calcium Cancelled, Phosphorus Cancelled, Magnesium Cancelled, Total Bilirubin Cancelled, AST Cancelled, ALT Cancelled, Albumin Cancelled, PT Cancelled, INR Cancelled 12/22/16 0155: Anion Gap 10, Estimated GFR 11 L, Glucose 111 H, Calcium 8.1 L, Phosphorus 6.0 H, Magnesium 1.9, Total Bilirubin 0.4, AST 31, ALT 42, Troponin I 0.03, Albumin 2.2 L, PT 58.3 *H, INR 5.65 *H, CBC w Diff NO MAN DIFF REQ, RBC 2.48 L , MCV 91.6, MCH 30.4, RDW 16.8 H, MPV 10.0, Gran % 82.0 H, Lymphocytes % 6.7 L, Monocytes % 11.0 H, Eosinophils % 0.3, Basophils % 0 L, Absolute Granulocytes 8.8 H, Absolute Lymphocytes 0.7 L, Absolute Monocytes 1.2 H, Absolute Eosinophils 0, Absolute Basophils 0, [facility] 33.2 12/22/16 0000: Troponin I Cancelled 12/21/16 1736: Troponin I 0.03, CBC w Diff NO MAN DIFF REQ, RBC 2.61 L, MCV 91.7, MCH 30.1, RDW 16.0 H, MPV 9.1, Gran % 87.6 H, Lymphocytes % 4.9 L, Monocytes % 7.4, Eosinophils % 0.1, Basophils % 0 L, Absolute Granulocytes 11.8 H, Absolute Lymphocytes 0.7 L, Absolute Monocytes 1.0 H, Absolute Eosinophils 0, Absolute Basophils 0, [facility] MCHC 32.8 L 12/21/16 1210: Troponin I 0.03, CBC w Diff NO MAN DIFF REQ, RBC 1.95 L, MCV 92.9, MCH 30.4, RDW 15.4 H, MPV 8.2, Gran % 87.7 H, Lymphocytes % 3.9 L, Monocytes % 8.4, Eosinophils % 0, Basophils % 0 L, Absolute Granulocytes 13.6 H, Absolute Lymphocytes 0.6 L, Absolute Monocytes 1.3 H, Absolute Eosinophils 0, Absolute Basophils 0, PUBS MCHC 32.7 L 12/21/16 0930: APTT 50 H 12/21/16 0720: Anion Gap 13, Estimated GFR 11 L, BUN/Creatinine Ratio 13.1, PT 32.7 H, INR 3.15 H, CBC w Diff MAN DIFF ORDERED, RBC 2.08 L, MCV 94.6, MCH 30.7, RDW 15.3 H, MPV 9.6, Gran % 86.8 H, Lymphocytes % 5.7 L, Monocytes % 7.5, Eosinophils % 0, Basophils % 0 L, Absolute Granulocytes 15.3 H, Segmented Neutrophils 82 H, Band Neutrophils 2, Absolute Lymphocytes 1.0 L, Lymphocytes 7 L, Monocytes 8, Absolute Monocytes 1.3 H, Absolute Eosinophils 0, Absolute Basophils 0, Metamyelocytes 1, Nucleated RBCs 1 H, Platelet Estimate ADEQUATE, Polychromasia , Hypochromic-Microcytic 2+, Poikilocytosis 1+, Basophilic Stippling , Anisocytosis 1+, PUBS MCHC 32.5 L 12/21/16 0140: APTT 93 H Recent Imaging Studies: CXR (12/22/2016) Cardiomegaly without acute process. Stable pacer electrodes. CT abdomen/pelvis (12/21/2016): 1. Abnormal CT scan of the abdomen and pelvis showing presence of a large hematoma at the left gluteal, hip and proximal left thigh region with intact hardware at left proximal visualized femur. Small amount of fluid is also noted within the presacral space. 2. No other significant interval change since 04/19/2016. Assessment/Plan Assessment/Plan Mrs. Freeman is a 66-year-old female with multiple medical problems including a history of mechanical mitral valve prosthesis, chronic atrial fibrillation on full anticoagulate with a difficult to control ventricular response that led to the placement of a biventricular pacemaker following AV node ablation, previous TIA while on Warfarin anticoagulation, and multifactorial anemia who is s/p orthopedic surgery postoperative day #3 complicated by a hematoma with a significant drop in her H/H while on bridging anticoagulation who, fortunately, has remained relatively hemodynamically stable. Her IV Heparin and warfarin were held yesterday, but unfortunately her INR was 5.65 and her H/H returned 7.5/22.7, prompting the administration of a third unit of packed red cells. Her follow-up H/H is pending and further recommendations will follow. Continue telemetry? Yes
--- NOTE | 2016-12-22 20:40 | NUR ---
AFEBRILE.A/OX3.FOLLOW COMMANDS.ASH WITH +CMS.NO C'O GEN DISCOMFORT.RECEIVED DIALYSIS WITH NO ISSUES.FISTULA PATENT.KARYN PO WELL. LEFT HIP DSG CDI.+BM AND PERINEAL CARE DONE.ANURIC AND STRAIGHT CATH SCHEDULE. PLAN OF CARE REVIEWED
[2016-12-23] VITALS: BP 120/60
--- NOTE | 2016-12-23 00:30 | NUR ---
PATIENT AWAKENED FOR VITAL SIGNS. SPEECH CLEAR AND APPROPRIATE. MONITOR PACING RHYTHM AT RATE OF 71. O2 SAT=99% ON 3L.RHONCHI NOTED BILATERAL LUNG SOUNDS. ANABELL AV FISTULA WITH POSITIVE BRUIT AND THRILL.L HIP DRESSING HAS SMALL AREA OF SEROSANQUINOUS DRAINAGE ON DRESSING.POSITIVE PRDAL PULSE TO L FOOT. FOOT WARM TO TOUCH.
--- NOTE | 2016-12-23 07:11 | PN- Housestaff ---
Subjective Follow-up For: ABLA 2/2 postoperative hematoma Supratherapeutic INR L hip fracture s/p IMHS ESRD on HD Subjective: No acute events overnight. Patient was seen and examined this morning. She feels that her SOB is unchanged. She complains of pain in her left hip. Dilaudid is providing some relief. Review of Systems Constitutional: Reports: weakness. Cardiovascular: Denies: chest pain, palpitations. Respiratory: Reports: short of breath. Gastrointestinal: Denies: nausea, vomiting. Objective Last 24 Hrs of Vital Signs/I&O Vital Signs Date Time Temp Pulse Resp B/P Pulse O2 O2 Flow FiO2 Ox Delivery Rate 12/23 0000 99 Nasal 3.0L Cannula 12/23 0000 98.3 71 20 120/60 99 Nasal 3.0L Cannula 12/22 2118 70 18 104/42 12/22 1723 96 Nasal 3.0L Cannula 12/22 1600 96 Nasal 3.0L Cannula 12/22 1600 97.7 72 24 98/50 96 Nasal 3.0L Cannula 12/22 1230 94 Nasal 3.0L Cannula 12/22 1128 Nasal 3.0L Cannula 12/22 0845 97 Nasal 3.0L Cannula 12/22 0800 95 Nasal 3.0L Cannula 12/22 0800 97.3 69 17 114/70 99 Nasal 3.0L Cannula Intake & Output 12/23 0800 12/23 0000 12/22 1600 Intake Total 240 400 Output Total 400 Balance 240 0 Intake, IV 40 Intake, Oral 240 360 Number 2 1 Bowel Movements Output, Urine 400 Physical Exam General Appearance: Alert, Oriented X3, No Acute Distress HEENT: Mucous Membr. moist/pink Neck: Supple Cardiovascular: Regular Rate, Normal S1, Normal S2 Lungs: Clear to Auscultation Abdomen: Soft, No Tenderness, Positive Bowel Sounds Extremities: No Clubbing, No Cyanosis, No Edema Current Medications: Current Medications Sig/Tripp Start time Last Medication Dose Route Stop Time Status Admin Acetaminophen 650 MG Q6P PRN 12/19 1700 AC PO Albuterol Sulfate 3 ML EVERY 4 HRS/AWAKE 12/19 1999 AC 12/23 INH 1305 Albuterol Sulfate 2 PUF Q4-6 PRN PRN 12/19 1699 AC INH Amlodipine Besylate 10 MG AT BEDTIME 12/19 2199 AC 12/22 PO 211 Bisacodyl 5 MG AT BEDTIME 12/190 AC 12/21 PO 2222 Budesonide/ 2 PUF BID 12/19 2200 AC 12/23 Formoterol Fumarate INH 1023 Cholecalciferol 1,000 IU DAILY 12/20 1000 AC 12/23 PO 1023 Diltiazem HCl 120 MG DAILY 12/20 1000 AC 12/23 PO 1023 Epoetin [place] 4,000 UNIT MoWeFr 12/20 1653 AC 12/22 IV 1315 Ferric Sodium 125 MG QWED@1200 12/22 1200 AC 12/22 Gluconate Complex IV 1300 Sodium Chloride 100 ML Furosemide 40 MG 7:30 AM, & 4:30 PM 12/20 0730 AC 12/23 PO 0800 Hydromorphone HCl 2 MG Q4P PRN 12/22 1030 AC 12/23 IV 1445 Lorazepam 2 MG QPM 12/19 2200 AC 12/22 PO 2117 Multivitamins 1 TAB DAILY 12/20 1000 AC 12/23 PO 1023 Oxycodone HCl 15 MG Q6 PRN 12/19 1700 AC 12/23 PO 0541 Paricalcitol 2 MCG MoWeFr 12/20 1653 AC 12/22 IV 1315 Polyethylene Glycol 17 GM DAILY 12/20 1000 AC 12/23 PO 1023 Prednisone 10 MG DAILY 12/20 1000 AC 12/23 PO 1023 Senna 187 MG AT BEDTIME 12/19 2200 AC 12/21 PO 2222 Sertraline HCl 100 MG DAILY 12/20 1000 AC 12/23 PO 1023 Sevelamer HCl 2,400 MG TIDAC 12/19 1700 AC 12/23 PO 1142 Tiotropium [place] 1 PUF DAILY 12/20 1000 AC 12/23 INH 1022 Last 24 Hrs of Lab/Thien Results Last 24 Hrs of Labs/Mics: Laboratory Tests 12/23/16 0720: Anion Gap 7, Estimated GFR 15 L, BUN/Creatinine Ratio 9.7, Calcium 8.6, Phosphorus 3.9, Magnesium 2.0, PT 48.1 *H, INR 4.65 *H, CBC w Diff NO MAN DIFF REQ, RBC 2.87 L, MCV 92.0, MCH 30.5, RDW 16.6 H, MPV 9.0, Gran % 82.9 H, Lymphocytes % 6.8 L, Monocytes % 9.3, Eosinophils % 0.9, Basophils % 0.1, Absolute Granulocytes 10.6 H, Absolute Lymphocytes 0.9 L, Absolute Monocytes 1.2 H, Absolute Eosinophils 0.1, Absolute Basophils 0, PUBS MCHC 33.2 12/22/16 1712: CBC w Diff MAN DIFF ORDERED, RBC 2.73 L, MCV 90.6, MCH 30.6, RDW 16.6 H, MPV 8.9, Gran % 88.1 H, Lymphocytes % 3.0 L, Monocytes % 8.6, Eosinophils % 0.2, Basophils % 0.1, Absolute Granulocytes 10.9 H, Segmented Neutrophils 82 H, Band Neutrophils 5, Absolute Lymphocytes 0.4 L, Lymphocytes 5 L, Monocytes 8, Absolute Monocytes 1.1 H, Absolute Eosinophils 0, Absolute Basophils 0, Platelet Estimate ADEQUATE, Polychromasia 2+, Hypochromic-Microcytic 2+, Basophilic Stippling 1+, Anisocytosis 1+, Macrocytic Cells 1+, PUBS MCHC 33.8 Assessment/Plan Assessment: 66 y/o F with PMHx of ESRD on HD and atrial fibrillation on warfarin, mitral stenosis s/p mechanical valve replacement who is admitted for L hip intertrochanteric failure 2/2 mechanical fall, now POD #4 s/p L hip IMHS, complicated by ABLA 2/2 hematoma at the surgical site while on bridging anticoagulation. #ABLA: Significant drop in H/H POD #2 s/p L hip IMHS while on bridging anticoagulation secondary to a postoperative hematoma. S/p 3 units of pRBCs with improvement of H/H to 8.8/26.4. H/H continues to be stable. * Continue to monitor H/H and transfuse as needed to keep Hgb > 8. * General surgery consulted for management of hematoma. Appreciate their recs. #Supratherapeutic INR: INR has further increased to 4.65 today despite holding warfarin. INR goal is 2.5-3.5 given mechanical mitral valve. * Cardiology following. Appreciate their recs. * Continue to hold IV heparin and warfarin. * Continue to monitor INR. * ALPs for DVT PPx. * Appreciate orthopedic surgery input regarding resuming anticoagulation therapy. #L hip intertrochanteric fracture: POD #4 s/p L hip IMHS. * Management per orthopedic surgery team. #ESRD: Secondary to presumed hypertensive nephrosclerosis. * Nephrology following. Appreciate their recs. * Next dialysis session scheduled on Tuesday. * Continue Epogen 4000 units IV and Zemplar 2 mcg IV three times per week with HD. * Continue Nephrocaps tab PO daily and Sevelamer 2400 mg PO TIDAC. Diet: Renal Dialysis Diet DVT PPx: ALPs CODE: DNR/DNI Problem List: 1. Hematoma, postoperative 2. Acute blood loss anemia 3. Hematoma of left hip 4. Intertrochanteric fracture of left hip 5. ESRD (end stage renal disease) on dialysis 6. Chronic atrial fibrillation 7. Supratherapeutic INR Pain Ratin Pain Location: Left hip Pain Goal: Remain pain free Pain Plan: Dilaudid 2 mg IV Q4H PRN for severe pain (scale 7-10). Oxycodone 15 mg PO Q6H PRN for moderate pain (scale 4-6) Tylenol 650 mg PO Q6H PRN for mild pain (scale 1-3) Tomorrow's Labs & Rationales: CBC to monitor H/H in the setting of anemia BMP, Mg, Ca and Phos in the setting of ESRD on HD INR in the setting of supratherapeutic INR
--- NOTE | 2016-12-23 07:11 | PN- Resident CRCU ---
Impression/Plan Impression/Problem List Impression: 66 y/o F with PMHx of ESRD on HD and atrial fibrillation on warfarin, mitral stenosis s/p mechanical valve replacement who is admitted for L hip intertrochanteric failure 2/2 mechanical fall, now POD #3 s/p L hip IMHS, complicated by ABLA 2/2 hematoma at the surgical site while on bridging anticoagulation. Plan DVT/Prophylaxis: mechanical, pharmacological Code Status: Do Not Resucitate/Intubat
[2016-12-23 08:05] LABS: ABSOLUTE BASOPHIL COUNT 0 /CUMM (0.0-0.2); ABSOLUTE EOSINOPHIL COUNT 0.1 /CUMM (0.0-0.7); ABSOLUTE GRANULOCYTE CT 10.6 /CUMM (1.4-6.5); ABSOLUTE LYMPH COUNT 0.9 /CUMM (1.2-3.4); ABSOLUTE MONOCYTE COUNT 1.2 /CUMM (0.10-0.60); BASOPHIL % 0.1 % (0.0-2.0); EOSINOPHIL % 0.9 % (0-5); GRANULOCYTE % 82.9 % (42.2-75.2); HEMATOCRIT 26.4 % (37-47); MEAN CORPUSCULAR HGB 30.5 PG (27.0-31.0); MEAN CORPUSCULAR HGB CONC 33.2 G/DL (33.0-37.0); PLATELET COUNT 209 /CUMM (130-400); RBC DISTRIBUTION WIDTH 16.6 % (11.5-14.5); RED BLOOD CELL CT 2.87 /CUMM (4.20-5.40); WHITE BLOOD CELL COUNT 12.8 /CUMM (4.8-10.8)
[2016-12-23 08:23] VITALS: BP 118/50
[2016-12-23 08:30] LABS: PT 48.1 SEC (9.4-12.5)
--- NOTE | 2016-12-23 10:13 | PN- Pulmonary ---
Subjective HPI/Critical Care Issues: pt seen and examined stable s/p HD hgb stable INR 4.65 iv access is poor but remains on right hand Objective Current Medications: Current Medications Sig/Tripp Start time Last Medication Dose Route Stop Time Status Admin Acetaminophen 650 MG Q6P PRN 12/19 1700 AC PO Albuterol Sulfate 3 ML EVERY 4 HRS/AWAKE 12/19 1999 AC 12/23 INH 0832 Albuterol Sulfate 2 PUF Q4-6 PRN PRN 12/19 170 AC INH Amlodipine Besylate 10 MG AT BEDTIME 12/19 2199 AC 12/22 PO 211 Bisacodyl 5 MG AT BEDTIME 12/19 2199 AC 12/21 PO 222 Budesonide/ 2 PUF BID 12/19 2199 AC 12/22 Formoterol Fumarate INH 2117 Cholecalciferol 1,000 IU DAILY 12/20 1000 AC 12/22 PO 0910 Diltiazem HCl 120 MG DAILY 12/20 1000 AC 12/22 PO 0909 Epoetin [place] 4,000 UNIT MoWeFr 12/20 1653 AC 12/22 IV 1315 Ferric Sodium 125 MG QWED 12/29 0700 CAN Gluconate Complex IV Ferric Sodium 125 MG QWED@1200 12/22 1200 AC 12/22 Gluconate Complex IV 1300 Sodium Chloride 100 ML Furosemide 40 MG 7:30 AM, & 4:30 PM 12/20 0730 AC 12/23 PO 0800 Hydromorphone HCl 2 MG Q4P PRN 12/22 1030 AC 12/23 IV 0805 Hydromorphone HCl 1 MG Q4P PRN 12/20 1415 DC 12/22 IV 0911 Lorazepam 2 MG QPM 12/19 2200 AC 12/22 PO 2117 Multivitamins 1 TAB DAILY 12/20 1000 AC 12/22 PO 0909 Oxycodone HCl 15 MG Q6 PRN 12/19 1700 AC 12/23 PO 0541 Paricalcitol 2 MCG MoWeFr 12/20 1653 AC 12/22 IV 1315 Polyethylene Glycol 17 GM DAILY 12/20 1000 AC 12/22 PO 0909 Prednisone 10 MG DAILY 12/20 1000 AC 12/22 PO 0909 Senna 187 MG AT BEDTIME 12/19 2200 AC 12/21 PO 2222 Sertraline HCl 100 MG DAILY 12/20 1000 AC 12/22 PO 0910 Sevelamer HCl 2,400 MG TIDAC 12/19 1700 AC 12/23 PO 0800 Tiotropium [place] 1 PUF DAILY 12/20 1000 AC 12/22 INH 0911 Vital Signs & I&O Last 24 Hrs of Vitals and I&O: Vital Signs Date Time Temp Pulse Resp B/P Pulse O2 O2 Flow FiO2 Ox Delivery Rate 12/23 0836 97 Nasal 3.0L Cannula 12/23 0823 94 Nasal 2.0L Cannula 12/23 0823 70 18 118/50 94 Nasal 2.0L Cannula 12/23 0000 99 Nasal 3.0L Cannula 12/23 0000 98.3 71 20 120/60 99 Nasal 3.0L Cannula 12/22 2118 70 18 104/42 12/22 1723 96 Nasal 3.0L Cannula 12/22 1600 96 Nasal 3.0L Cannula 12/22 1600 97.7 72 24 98/50 96 Nasal 3.0L Cannula 12/22 1230 94 Nasal 3.0L Cannula 12/22 1128 Nasal 3.0L Cannula Intake & Output 12/23 1600 12/23 0800 12/23 0000 Intake Total 200 240 Output Total Balance 200 240 Intake, Oral 200 240 Number 2 Bowel Movements Patient 180 lb Weight Exam Other Physical Findings: gen awake and alert heent ncat cvs s1, s2 lungs rare rhonchi abd soft bs+ ext dressing intact Results Last 24 Hrs of Lab Results: Laboratory Tests 12/23/16 0720: Anion Gap 7, Estimated GFR 15 L, BUN/Creatinine Ratio 9.7, Calcium 8.6, Phosphorus 3.9, Magnesium 2.0, PT 48.1 *H, INR 4.65 *H, CBC w Diff NO MAN DIFF REQ, RBC 2.87 L, MCV 92.0, MCH 30.5, RDW 16.6 H, MPV 9.0, Gran % 82.9 H, Lymphocytes % 6.8 L, Monocytes % 9.3, Eosinophils % 0.9, Basophils % 0.1, Absolute Granulocytes 10.6 H, Absolute Lymphocytes 0.9 L, Absolute Monocytes 1.2 H, Absolute Eosinophils 0.1, Absolute Basophils 0, PUBS MCHC 33.2 12/22/16 1712: CBC w Diff MAN DIFF ORDERED, RBC 2.73 L, MCV 90.6, MCH 30.6, RDW 16.6 H, MPV 8.9, Gran % 88.1 H, Lymphocytes % 3.0 L, Monocytes % 8.6, Eosinophils % 0.2, Basophils % 0.1, Absolute Granulocytes 10.9 H, Segmented Neutrophils 82 H, Band Neutrophils 5, Absolute Lymphocytes 0.4 L, Lymphocytes 5 L, Monocytes 8, Absolute Monocytes 1.1 H, Absolute Eosinophils 0, Absolute Basophils 0, Platelet Estimate ADEQUATE, Polychromasia 2+, Hypochromic-Microcytic 2+, Basophilic Stippling 1+, Anisocytosis 1+, Macrocytic Cells 1+, PUBS MCHC 33.8 Impression/Plan Impression/Plan Impression/Plan: Impression 66 year old woman - retroperitoneal bleed in the setting of a hip fracture - mechanical mitral valve - COPD Plan - f/u orthopedics, surgery, nephrology, cardiology - monitor cbc, coags, hemodynamics - HD per renal, hgb stable, goal >8 or active bleeding for hgb - plan for proline once inr acceptable - DNR/DNI - TRC/Nebs GM hold
--- NOTE | 2016-12-23 11:24 | PN- Nephrology ---
Assessment/Plan Assessment: ESRD - Hemodynamically stable with stable H/H - OK to wait for dialysis tomorrow. Hip fracture c/b bleeding - Hg seems to have stabilized. INR still elevated ( has mechanical MV). On Epogen with dialysis. 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 INR elevated with meds held. Suggestion: -No need for dialysis today -Cont Epogen -Cont Zemplar -Monitor INR - would f/u Cards recs re: AC once INR within therapeutic range Subjective Subjective: Dialysis yesterday Hip feels "a little better" Got an additional transfusion - Hg 8.8 Objective Vital Signs and I&Os Vital Signs Date Time Temp Pulse Resp B/P Pulse O2 O2 Flow FiO2 Ox Delivery Rate 12/23 0836 97 Nasal 3.0L Cannula 12/23 08 94 Nasal 2.0L Cannula 12/23 0823 70 18 118/50 94 Nasal 2.0L Cannula 12/23 0000 99 Nasal 3.0L Cannula 12/23 0000 98.3 71 20 120/60 99 Nasal 3.0L Cannula 12/22 2118 70 18 104/42 12/22 1723 96 Nasal 3.0L Cannula 12/22 1600 96 Nasal 3.0L Cannula 12/22 1600 97.7 72 24 98/50 96 Nasal 3.0L Cannula 12/22 1230 94 Nasal 3.0L Cannula 12/22 1128 Nasal 3.0L Cannula Intake & Output 12/23 1600 12/23 0400 12/22 1600 12/22 0400 12/21 1600 12/21 0400 Intake Total 200 240 253 322 6158 670 Output Total 400 0 Balance 200 240 036 079 8775 670 Intake, IV 40 440 310 Intake, Oral 200 240 560 240 940 360 Number 2 1 1 Bowel Movements Output, Urine 400 0 Patient 180 lb 176 lb 186 lb 173 lb Weight Physical Exam: Gen - improved appearance HEENT - supple CV - RRR Chest - clear anteriorly Abd - soft, nontender Ext - no edema Skin - no bruising visible by L hip Neuro - AOX3 Current Medications: Current Medications Sig/Tripp Start time Last Medication Dose Route Stop Time Status Admin Acetaminophen 650 MG Q6P PRN 12/19 1700 AC PO Albuterol Sulfate 3 ML EVERY 4 HRS/AWAKE 12/19 1999 AC 12/23 INH 0832 Albuterol Sulfate 2 PUF Q4-6 PRN PRN 12/19 1700 AC INH Amlodipine Besylate 10 MG AT BEDTIME 12/19 2200 AC 12/22 PO 2118 Bisacodyl 5 MG AT BEDTIME 12/19 2200 AC 12/21 PO 2222 Budesonide/ 2 PUF BID 12/19 2200 AC 12/23 Formoterol Fumarate INH 1023 Cholecalciferol 1,000 IU DAILY 12/20 1000 AC 12/23 PO 1023 Diltiazem HCl 120 MG DAILY 12/20 1000 AC 12/23 PO 1023 Epoetin Jerson 4,000 UNIT MoWeFr 12/20 1653 AC 12/22 IV 1315 Ferric Sodium 125 MG QWED 12/29 0700 CAN Gluconate Complex IV Ferric Sodium 125 MG QWED@1200 12/22 1200 AC 12/22 Gluconate Complex IV 1300 Sodium Chloride 100 ML Furosemide 40 MG 7:30 AM, & 4:30 PM 12/20 0730 AC 12/23 PO 0800 Hydromorphone HCl 2 MG Q4P PRN 12/22 1030 AC 12/23 IV 0805 Lorazepam 2 MG QPM 12/19 2200 AC 12/22 PO 2117 Multivitamins 1 TAB DAILY 12/20 1000 AC 12/23 PO 1023 Oxycodone HCl 15 MG Q6 PRN 12/19 1700 AC 12/23 PO 0541 Paricalcitol 2 MCG MoWeFr 12/20 1653 AC 12/22 IV 1315 Polyethylene Glycol 17 GM DAILY 12/20 1000 AC 12/23 PO 1023 Prednisone 10 MG DAILY 12/20 1000 AC 12/23 PO 1023 Senna 187 MG AT BEDTIME 12/19 2200 AC 12/21 PO 2222 Sertraline HCl 100 MG DAILY 12/20 1000 AC 12/23 PO 1023 Sevelamer HCl 2,400 MG TIDAC 12/19 1700 AC 12/23 PO 0800 Tiotropium [place] 1 PUF DAILY 12/20 1000 AC 12/23 INH 1022 Results Pertinent Lab Results: Laboratory Tests 12/23 12/22 0720 1712 Chemistry Sodium (137 - 145 mmol/L) 138 Potassium (3.5 - 5.1 mmol/L) 3.7 Chloride (98 - 107 mmol/L) 101 Carbon Dioxide (22 - 30 mmol/L) 29 Anion Gap (5 - 16) 7 BUN (7 - 17 mg/dL) 30 H Creatinine (0.5 - 1.0 mg/dL) 3.1 H Estimated GFR (>60 ml/min) 15 L BUN/Creatinine Ratio (7 - 25 %) 9.7 Calcium (8.4 - 10.2 mg/dL) 8.6 Phosphorus (2.5 - 4.5 mg/dL) 3.9 Magnesium (1.6 - 2.3 mg/dL) 2.0 Coagulation PT (9.4 - 12.5 SEC) 48.1 *H INR (0.90 - 1.19) 4.65 *H Hematology CBC w Diff NO MAN DIFF REQ MAN DIFF ORDERED WBC (4.8 - 10.8 /CUMM) 12.8 H 12.4 H RBC (4.20 - 5.40 /CUMM) 2.87 L 2.73 L Hgb (12.0 - 16.0 G/DL) 8.8 L 8.4 L Hct (37 - 47 %) 26.4 L 24.7 L MCV (81.0 - 99.0 FL) 92.0 90.6 MCH (27.0 - 31.0 PG) 30.5 30.6 RDW (11.5 - 14.5 %) 16.6 H 16.6 H Plt Count (130 - 400 /CUMM) 209 179 MPV (7.4 - 10.4 FL) 9.0 8.9 Gran % (42.2 - 75.2 %) 82.9 H 88.1 H Lymphocytes % (20.5 - 51.1 %) 6.8 L 3.0 L Monocytes % (1.7 - 9.3 %) 9.3 8.6 Eosinophils % (0 - 5 %) 0.9 0.2 Basophils % (0.0 - 2.0 %) 0.1 0.1 Absolute Granulocytes (1.4 - 6.5 /CUMM) 10.6 H 10.9 H Segmented Neutrophils (42.2 - 75.2 %) 82 H Band Neutrophils (0.0 - 5.0 %) 5 Absolute Lymphocytes (1.2 - 3.4 /CUMM) 0.9 L 0.4 L Lymphocytes (20.5 - 51.1 %) 5 L Monocytes (1.7 - 9.3 %) 8 Absolute Monocytes (0.10 - 0.60 /CUMM) 1.2 H 1.1 H Absolute Eosinophils (0.0 - 0.7 /CUMM) 0.1 0 Absolute Basophils (0.0 - 0.2 /CUMM) 0 0 Platelet Estimate (ADEQUATE) ADEQUATE Polychromasia 2+ Hypochromic-Microcytic 2+ Basophilic Stippling 1+ Anisocytosis 1+ Macrocytic Cells 1+ PUBS MCHC (33.0 - 37.0 G/DL) 33.2 33.8 12/22 12/22 12/22 0500 0155 0000 Chemistry Sodium (137 - 145 mmol/L) Cancelled 136 L Potassium (3.5 - 5.1 mmol/L) Cancelled 4.5 Chloride (98 - 107 mmol/L) Cancelled 101 Carbon Dioxide (22 - 30 mmol/L) Cancelled 26 Anion Gap (5 - 16) Cancelled 10 BUN (7 - 17 mg/dL) Cancelled 50 H Creatinine (0.5 - 1.0 mg/dL) Cancelled 4.0 H Estimated GFR (>60 ml/min) 11 L Glucose (65 - 99 mg/dL) Cancelled 111 H Calcium (8.4 - 10.2 mg/dL) Cancelled 8.1 L Phosphorus (2.5 - 4.5 mg/dL) Cancelled 6.0 H Magnesium (1.6 - 2.3 mg/dL) Cancelled 1.9 Total Bilirubin (0.2 - 1.3 mg/dL) Cancelled 0.4 AST (14 - 36 U/L) Cancelled 31 ALT (9 - 52 U/L) Cancelled 42 Troponin I (< 0.11 ng/ml) 0.03 Cancelled Albumin (3.5 - 5.0 g/dL) Cancelled 2.2 L Coagulation PT (9.4 - 12.5 SEC) Cancelled 58.3 *H INR (0.90 - 1.19) Cancelled 5.65 *H Hematology CBC w Diff NO MAN DIFF REQ WBC (4.8 - 10.8 /CUMM) 10.7 RBC (4.20 - 5.40 /CUMM) 2.48 L Hgb (12.0 - 16.0 G/DL) 7.5 L Hct (37 - 47 %) 22.7 L MCV (81.0 - 99.0 FL) 91.6 MCH (27.0 - 31.0 PG) 30.4 RDW (11.5 - 14.5 %) 16.8 H Plt Count (130 - 400 /CUMM) 189 MPV (7.4 - 10.4 FL) 10.0 Gran % (42.2 - 75.2 %) 82.0 H Lymphocytes % (20.5 - 51.1 %) 6.7 L Monocytes % (1.7 - 9.3 %) 11.0 H Eosinophils % (0 - 5 %) 0.3 Basophils % (0.0 - 2.0 %) 0 L Absolute Granulocytes (1.4 - 6.5 /CUMM) 8.8 H Absolute Lymphocytes (1.2 - 3.4 /CUMM) 0.7 L Absolute Monocytes (0.10 - 0.60 /CUMM) 1.2 H Absolute Eosinophils (0.0 - 0.7 /CUMM) 0 Absolute Basophils (0.0 - 0.2 /CUMM) 0 PUBS MCHC (33.0 - 37.0 G/DL) 33.2 12/21 12/21 1736 1210 Chemistry Troponin I (< 0.11 ng/ml) 0.03 0.03 Hematology CBC w Diff NO MAN DIFF REQ NO MAN DIFF REQ WBC (4.8 - 10.8 /CUMM) 13.5 H 15.5 H RBC (4.20 - 5.40 /CUMM) 2.61 L 1.95 L Hgb (12.0 - 16.0 G/DL) 7.9 L 5.9 *L Hct (37 - 47 %) 23.9 L 18.1 *L MCV (81.0 - 99.0 FL) 91.7 92.9 MCH (27.0 - 31.0 PG) 30.1 30.4 RDW (11.5 - 14.5 %) 16.0 H 15.4 H Plt Count (130 - 400 /CUMM) 197 233 MPV (7.4 - 10.4 FL) 9.1 8.2 Gran % (42.2 - 75.2 %) 87.6 H 87.7 H Lymphocytes % (20.5 - 51.1 %) 4.9 L 3.9 L Monocytes % (1.7 - 9.3 %) 7.4 8.4 Eosinophils % (0 - 5 %) 0.1 0 Basophils % (0.0 - 2.0 %) 0 L 0 L Absolute Granulocytes (1.4 - 6.5 /CUMM) 11.8 H 13.6 H Absolute Lymphocytes (1.2 - 3.4 /CUMM) 0.7 L 0.6 L Absolute Monocytes (0.10 - 0.60 /CUMM) 1.0 H 1.3 H Absolute Eosinophils (0.0 - 0.7 /CUMM) 0 0 Absolute Basophils (0.0 - 0.2 /CUMM) 0 0 PUBS MCHC (33.0 - 37.0 G/DL) 32.8 L 32.7 L 12/21 12/21 12/21 12/20 0930 0720 0140 1300 Chemistry Sodium (137 - 145 mmol/L) 133 L Potassium (3.5 - 5.1 mmol/L) 4.8 Chloride (98 - 107 mmol/L) 97 L Carbon Dioxide (22 - 30 mmol/L) 24 Anion Gap (5 - 16) 13 BUN (7 - 17 mg/dL) 55 H Creatinine (0.5 - 1.0 mg/dL) 4.2 H Estimated GFR (>60 ml/min) 11 L BUN/Creatinine Ratio (7 - 25 %) 13.1 Coagulation PT (9.4 - 12.5 SEC) 32.7 H INR (0.90 - 1.19) 3.15 H APTT (25 - 37 SEC) 50 H 93 H 75 H Hematology CBC w Diff MAN DIFF ORDERED WBC (4.8 - 10.8 /CUMM) 17.6 H RBC (4.20 - 5.40 /CUMM) 2.08 L Hgb (12.0 - 16.0 G/DL) 6.4 *L Hct (37 - 47 %) 19.7 *L MCV (81.0 - 99.0 FL) 94.6 MCH (27.0 - 31.0 PG) 30.7 RDW (11.5 - 14.5 %) 15.3 H Plt Count (130 - 400 /CUMM) 240 MPV (7.4 - 10.4 FL) 9.6 Gran % (42.2 - 75.2 %) 86.8 H Lymphocytes % (20.5 - 51.1 %) 5.7 L Monocytes % (1.7 - 9.3 %) 7.5 Eosinophils % (0 - 5 %) 0 Basophils % (0.0 - 2.0 %) 0 L Absolute Granulocytes (1.4 - 6.5 /CUMM) 15.3 H Segmented Neutrophils (42.2 - 75.2 %) 82 H Band Neutrophils (0.0 - 5.0 %) 2 Absolute Lymphocytes (1.2 - 3.4 /CUMM) 1.0 L Lymphocytes (20.5 - 51.1 %) 7 L Monocytes (1.7 - 9.3 %) 8 Absolute Monocytes (0.10 - 0.60 /CUMM) 1.3 H Absolute Eosinophils (0.0 - 0.7 /CUMM) 0 Absolute Basophils (0.0 - 0.2 /CUMM) 0 Metamyelocytes (0.0 - 1.0 %) 1 Nucleated RBCs (0.0 - 0.0 /100WBC) 1 H Platelet Estimate (ADEQUATE) ADEQUATE Polychromasia Hypochromic-Microcytic 2+ Poikilocytosis 1+ Basophilic Stippling Anisocytosis 1+ PUBS MCHC (33.0 - 37.0 G/DL) 32.5 L Imaging/Other Studies: EXAM TYPE: RAD - XRY-PORTABLE CHEST XRAY EXAMINATION: XR PORTABLE CHEST CLINICAL INFORMATION: Evaluate for volume overload. Status post transfusion with 2 units of RBCs. COMPARISON: None TECHNIQUE: Portable AP view of the chest was obtained. FINDINGS: There is cardiomegaly with normal pulmonary vascularity. There are thin and thick pacer electrodes both in right ventricle. Both lungs are well-expanded without any acute pneumonic process. No gross bony abnormality. IMPRESSION: Cardiomegaly without acute process. Stable pacer electrodes.
--- NOTE | 2016-12-23 12:28 | PN- Att Addend ---
Attending Addendum Attending Brief Note No new complaints still in some pain. Blood pressure stable. No major changes on physical. Her hemoglobin this morning was 8.8 hematocrit 26.4 and her INR 4.65 still waiting for the INR to come down and then bridged with heparin to be able to put a good IV line in continue to monitor the labs closely and continue her hemodialysis Current Medications Sig/Tripp Start time Last Medication Dose Route Stop Time Status Admin Acetaminophen 650 MG Q6P PRN 12/19 1700 AC PO Albuterol Sulfate 3 ML EVERY 4 HRS/AWAKE 12/19 1999 AC 12/23 INH 0832 Albuterol Sulfate 2 PUF Q4-6 PRN PRN 12/19 1700 AC INH Amlodipine Besylate 10 MG AT BEDTIME 12/19 2199 AC 12/22 PO 2118 Bisacodyl 5 MG AT BEDTIME 12/19 2200 AC 12/21 PO 2222 Budesonide/ 2 PUF BID 12/19 2200 AC 12/23 Formoterol Fumarate INH 1023 Cholecalciferol 1,000 IU DAILY 12/20 1000 AC 12/23 PO 1023 Diltiazem HCl 120 MG DAILY 12/20 1000 AC 12/23 PO 1023 Epoetin Jerson 4,000 UNIT MoWeFr 12/20 1653 AC 12/22 IV 1315 Ferric Sodium 125 MG QWED@1200 12/22 1200 AC 12/22 Gluconate Complex IV 1300 Sodium Chloride 100 ML Furosemide 40 MG 7:30 AM, & 4:30 PM 12/20 0730 AC 12/23 PO 0800 Hydromorphone HCl 2 MG Q4P PRN 12/22 1030 AC 12/23 IV 0805 Lorazepam 2 MG QPM 12/19 2200 AC 12/22 PO 2117 Multivitamins 1 TAB DAILY 12/20 1000 AC 12/23 PO 1023 Oxycodone HCl 15 MG Q6 PRN 12/19 1700 AC 12/23 PO 0541 Paricalcitol 2 MCG MoWeFr 12/20 1653 AC 12/22 IV 1315 Polyethylene Glycol 17 GM DAILY 12/20 1000 AC 12/23 PO 1023 Prednisone 10 MG DAILY 12/20 1000 AC 12/23 PO 1023 Senna 187 MG AT BEDTIME 12/19 2200 AC 12/21 PO 2222 Sertraline HCl 100 MG DAILY 12/20 1000 AC 12/23 PO 1023 Sevelamer HCl 2,400 MG TIDAC 12/19 1700 AC 12/23 PO 1142 Tiotropium [place] 1 PUF DAILY 12/20 1000 AC 12/23 INH 1022 Laboratory Tests 12/23/16 0720: Anion Gap 7, Estimated GFR 15 L, BUN/Creatinine Ratio 9.7, Calcium 8.6, Phosphorus 3.9, Magnesium 2.0, PT 48.1 *H, INR 4.65 *H, CBC w Diff NO MAN DIFF REQ, RBC 2.87 L, MCV 92.0, MCH 30.5, RDW 16.6 H, MPV 9.0, Gran % 82.9 H, Lymphocytes % 6.8 L, Monocytes % 9.3, Eosinophils % 0.9, Basophils % 0.1, Absolute Granulocytes 10.6 H, Absolute Lymphocytes 0.9 L, Absolute Monocytes 1.2 H, Absolute Eosinophils 0.1, Absolute Basophils 0, PUBS MCHC 33.2 12/22/16 1712: CBC w Diff MAN DIFF ORDERED, RBC 2.73 L, MCV 90.6, MCH 30.6, RDW 16.6 H, MPV 8.9, Gran % 88.1 H, Lymphocytes % 3.0 L, Monocytes % 8.6, Eosinophils % 0.2, Basophils % 0.1, Absolute Granulocytes 10.9 H, Segmented Neutrophils 82 H, Band Neutrophils 5, Absolute Lymphocytes 0.4 L, Lymphocytes 5 L, Monocytes 8, Absolute Monocytes 1.1 H, Absolute Eosinophils 0, Absolute Basophils 0, Platelet Estimate ADEQUATE, Polychromasia 2+, Hypochromic-Microcytic 2+, Basophilic Stippling 1+, Anisocytosis 1+, Macrocytic Cells 1+, PUBS MCHC 33.8 Vital Signs Date Time Temp Pulse Resp B/P Pulse O2 O2 Flow FiO2 Ox Delivery Rate 12/23 0836 97 Nasal 3.0L Cannula 12/23 0823 94 Nasal 2.0L Cannula 12/23 0823 70 18 118/50 94 Nasal 2.0L Cannula 12/23 0000 99 Nasal 3.0L Cannula 12/23 0000 98.3 71 20 120/60 99 Nasal 3.0L Cannula 12/22 2118 70 18 104/42 12/22 1723 96 Nasal 3.0L Cannula 12/22 1600 96 Nasal 3.0L Cannula 12/22 1600 97.7 72 24 98/50 96 Nasal 3.0L Cannula 12/22 1230 94 Nasal 3.0L Cannula Intake & Output 12/23 1600 12/23 0800 12/23 0000 Intake Total 200 240 Output Total Balance 200 240 Intake, Oral 200 240 Number 2 Bowel Movements Patient 180 lb Weight
[2016-12-23 16:00] VITALS: BP 132/92
--- NOTE | 2016-12-23 17:55 | PN- Cardiology ---
Subjective Subjective: No complaints. Denies chest discomfort, palpitations, or change in her chronic dyspnea. Objective Vital Signs and I&Os Vital Signs Date Time Temp Pulse Resp B/P Pulse O2 O2 Flow FiO2 Ox Delivery Rate 12/23 1600 99 Nasal 3.0L Cannula 12/23 1600 97.8 97 20 132/92 99 Nasal 3.0L Cannula 12/23 0836 97 Nasal 3.0L Cannula 12/23 0823 94 Nasal 2.0L Cannula 12/23 0823 70 18 118/50 94 Nasal 2.0L Cannula 12/23 0000 99 Nasal 3.0L Cannula 12/23 0000 98.3 71 20 120/60 99 Nasal 3.0L Cannula 12/22 2118 70 18 104/42 Intake & Output 12/23 1600 12/23 0800 12/23 0000 12/22 1600 12/22 0800 12/22 0000 Intake Total 720 200 240 400 200 240 Output Total 400 0 Balance 720 200 240 0 200 240 Intake, IV 40 Intake, Oral 720 200 240 360 200 240 Number 2 2 1 0 Bowel Movements Output, Urine 400 0 Patient 180 lb 176 lb 186 lb Weight Physical Exam: Well-developed, chronically ill appearing and pale female in no acute distress with nasal oxygen in place. Vital signs: See above. Lungs: Bilateral rhonchi. Heart: S1, S2 with appropriate mechanical bowel sounds and grade 2/6 systolic murmur. Extremities: Trace edema. Current Medications: Current Medications Sig/Tripp Start time Last Medication Dose Route Stop Time Status Admin Acetaminophen 650 MG Q6P PRN 12/19 1700 AC PO Albuterol Sulfate 3 ML EVERY 4 HRS/AWAKE 12/19 1999 AC 12/23 INH 1305 Albuterol Sulfate 2 PUF Q4-6 PRN PRN 12/19 1700 AC INH Amlodipine Besylate 10 MG AT BEDTIME 12/19 2199 AC 12/22 PO 8 Bisacodyl 5 MG AT BEDTIME 12/19 2199 AC 12/21 PO 222 Budesonide/ 2 PUF BID 12/19 2199 AC 12/23 Formoterol Fumarate INH 1023 Cholecalciferol 1,000 IU DAILY 12/20 1000 AC 12/23 PO 1023 Diltiazem HCl 120 MG DAILY 12/20 1000 AC 12/23 PO 1023 Epoetin Jerson 4,000 UNIT MoWeFr 12/20 1653 AC 12/22 IV 1315 Ferric Sodium 125 MG QWED@1200 12/22 1200 AC 12/22 Gluconate Complex IV 1300 Sodium Chloride 100 ML Furosemide 40 MG 7:30 AM, & 4:30 PM 12/20 0730 AC 12/23 PO 1636 Hydromorphone HCl 2 MG Q4P PRN 12/22 1030 AC 12/23 IV 1445 Lorazepam 2 MG QPM 12/19 2200 AC 12/22 PO 2117 Multivitamins 1 TAB DAILY 12/20 1000 AC 12/23 PO 1023 Oxycodone HCl 15 MG Q6 PRN 12/19 1700 AC 12/23 PO 0541 Paricalcitol 2 MCG MoWeFr 12/20 1653 AC 12/22 IV 1315 Polyethylene Glycol 17 GM DAILY 12/20 1000 AC 12/23 PO 1023 Prednisone 10 MG DAILY 12/20 1000 AC 12/23 PO 1023 Senna 187 MG AT BEDTIME 12/19 2200 AC 12/21 PO 2222 Sertraline HCl 100 MG DAILY 12/20 1000 AC 12/23 PO 1023 Sevelamer HCl 2,400 MG TIDAC 12/19 1700 AC 12/23 PO 1636 Tiotropium [place] 1 PUF DAILY 12/20 1000 AC 12/23 INH 1022 Results Last 48 Hrs of Labs/Mics: Laboratory Tests 12/23/16 0720: Anion Gap 7, Estimated GFR 15 L, BUN/Creatinine Ratio 9.7, Calcium 8.6, Phosphorus 3.9, Magnesium 2.0, PT 48.1 *H, INR 4.65 *H, CBC w Diff NO MAN DIFF REQ, RBC 2.87 L, MCV 92.0, MCH 30.5, RDW 16.6 H, MPV 9.0, Gran % 82.9 H, Lymphocytes % 6.8 L, Monocytes % 9.3, Eosinophils % 0.9, Basophils % 0.1, Absolute Granulocytes 10.6 H, Absolute Lymphocytes 0.9 L, Absolute Monocytes 1.2 H, Absolute Eosinophils 0.1, Absolute Basophils 0, PUBS MCHC 33.2 12/22/16 1712: CBC w Diff MAN DIFF ORDERED, RBC 2.73 L, MCV 90.6, MCH 30.6, RDW 16.6 H, MPV 8.9, Gran % 88.1 H, Lymphocytes % 3.0 L, Monocytes % 8.6, Eosinophils % 0.2, Basophils % 0.1, Absolute Granulocytes 10.9 H, Segmented Neutrophils 82 H, Band Neutrophils 5, Absolute Lymphocytes 0.4 L, Lymphocytes 5 L, Monocytes 8, Absolute Monocytes 1.1 H, Absolute Eosinophils 0, Absolute Basophils 0, Platelet Estimate ADEQUATE, Polychromasia 2+, Hypochromic-Microcytic 2+, Basophilic Stippling 1+, Anisocytosis 1+, Macrocytic Cells 1+, PUBS MCHC 33.8 12/22/16 0500: Sodium Cancelled, Potassium Cancelled, Chloride Cancelled, Carbon Dioxide Cancelled, Anion Gap Cancelled, BUN Cancelled, Creatinine Cancelled, Glucose Cancelled, Calcium Cancelled, Phosphorus Cancelled, Magnesium Cancelled, Total Bilirubin Cancelled, AST Cancelled, ALT Cancelled, Albumin Cancelled, PT Cancelled, INR Cancelled 12/22/16 0155: Anion Gap 10, Estimated GFR 11 L, Glucose 111 H, Calcium 8.1 L, Phosphorus 6.0 H, Magnesium 1.9, Total Bilirubin 0.4, AST 31, ALT 42, Troponin I 0.03, Albumin 2.2 L, PT 58.3 *H, INR 5.65 *H, CBC w Diff NO MAN DIFF REQ, RBC 2.48 L , MCV 91.6, MCH 30.4, RDW 16.8 H, MPV 10.0, Gran % 82.0 H, Lymphocytes % 6.7 L, Monocytes % 11.0 H, Eosinophils % 0.3, Basophils % 0 L, Absolute Granulocytes 8.8 H, Absolute Lymphocytes 0.7 L, Absolute Monocytes 1.2 H, Absolute Eosinophils 0, Absolute Basophils 0, PUBS MCHC 33.2 12/22/16 0000: Troponin I Cancelled Assessment/Plan Assessment/Plan Mrs. Freeman is a 66-year-old female with multiple medical problems including a history of mechanical mitral valve prosthesis, chronic atrial fibrillation on full anticoagulate with a difficult to control ventricular response that led to the placement of a biventricular pacemaker following AV node ablation, previous TIA while on Warfarin anticoagulation, and multifactorial anemia who is s/p orthopedic surgery postoperative day #4 complicated by a hematoma with a significant drop in her H/H while on bridging anticoagulation who, fortunately, has remained relatively hemodynamically stable. Her IV Heparin and warfarin remain on hold and her INR remains elevated at 4.65, but is trending downward from yesterday's INR of 5.65 and her H/H is stable at 8.8/26.4 following the administration of her last (third unit) of packed red cells. The plan is to continue to allow her INR to come down on its own and restart anticoagulation when orthopedic surgery deems it appropriate. Continue telemetry? Yes
--- NOTE | 2016-12-23 19:19 | Event Note ---
Event Note Event Note: Patient had 31 beat of V. tach. Patient stated that she felt her heart racing, She denied any chest pain or shortness of breath or loss consciousness. As you pending and CBC stat was ordered came back with H&H 8.24.4, her electrolytes within acceptable limits. The swim coach Dr. Nieves was notifiedand and the plan was discussed with him.
[2016-12-23 19:50] LABS: ABSOLUTE BASOPHIL COUNT 0 /CUMM (0.0-0.2); ABSOLUTE EOSINOPHIL COUNT 0 /CUMM (0.0-0.7); ABSOLUTE GRANULOCYTE CT 12.9 /CUMM (1.4-6.5); ABSOLUTE LYMPH COUNT 0.4 /CUMM (1.2-3.4); ABSOLUTE MONOCYTE COUNT 0.9 /CUMM (0.10-0.60); BASOPHIL % 0 % (0.0-2.0); EOSINOPHIL % 0.1 % (0-5); HEMATOCRIT 24.4 % (37-47); MEAN CORPUSCULAR HGB 30.4 PG (27.0-31.0); MEAN CORPUSCULAR HGB CONC 33.1 G/DL (33.0-37.0); MEAN CORPUSCULAR VOLUME 91.8 FL (81.0-99.0); MEAN PLATELET VOLUME 8.6 FL (7.4-10.4); PLATELET COUNT 215 /CUMM (130-400); RBC DISTRIBUTION WIDTH 16.9 % (11.5-14.5); RED BLOOD CELL CT 2.66 /CUMM (4.20-5.40); WHITE BLOOD CELL COUNT 14.2 /CUMM (4.8-10.8)
[2016-12-23 19:54] LABS: GRANULOCYTE % 90.8 % (42.2-75.2)
[2016-12-24] VITALS: BP 126/58
--- NOTE | 2016-12-24 01:29 | NUR ---
AVSS.A/OX3.FOLLOW COMMANDS.ASH WITH +CMS.LUNG SOUNDS DIMINISHED AND ON 2L O2 WITH SATS >95%.HOB ELEVATED.PACING 60-70'S.NO C'O GEN DISCOMFORT OR RESP DISTRESS. LEFT HIP DSG INTACT.PLAN OF CARE REVIEWED
[2016-12-24 06:00] LABS: PT 37.3 SEC (9.4-12.5)
[2016-12-24 06:51] LABS: ABSOLUTE BASOPHIL COUNT 0 /CUMM (0.0-0.2); ABSOLUTE EOSINOPHIL COUNT 0.2 /CUMM (0.0-0.7); ABSOLUTE GRANULOCYTE CT 11.1 /CUMM (1.4-6.5); ABSOLUTE LYMPH COUNT 0.9 /CUMM (1.2-3.4); ABSOLUTE MONOCYTE COUNT 1.1 /CUMM (0.10-0.60); BASOPHIL % 0 % (0.0-2.0); EOSINOPHIL % 1.4 % (0-5); GRANULOCYTE % 83.8 % (42.2-75.2); MEAN CORPUSCULAR HGB 30.6 PG (27.0-31.0); MEAN CORPUSCULAR HGB CONC 33.1 G/DL (33.0-37.0); MEAN CORPUSCULAR VOLUME 92.6 FL (81.0-99.0); MEAN PLATELET VOLUME 9.8 FL (7.4-10.4); PLATELET COUNT 210 /CUMM (130-400); RBC DISTRIBUTION WIDTH 16.7 % (11.5-14.5); RED BLOOD CELL CT 2.64 /CUMM (4.20-5.40); WHITE BLOOD CELL COUNT 13.3 /CUMM (4.8-10.8)
--- NOTE | 2016-12-24 07:10 | PN- Housestaff ---
Subjective Follow-up For: ABLA 2/2 postoperative hematoma Supratherapeutic INR L hip fracture s/p IMHS ESRD on HD Subjective: Patient had an episode of 31-beat vtach last night. She was asymptomatic during the episode. She was seen and examined this morning. She complains of pain in her left hip. Shortness of breath is unchanged. She denies chest pain or palpitations. Review of Systems Constitutional: Reports: weakness. Cardiovascular: Denies: chest pain, palpitations. Respiratory: Denies: short of breath. Gastrointestinal: Denies: nausea, vomiting. Objective Last 24 Hrs of Vital Signs/I&O Vital Signs Date Time Temp Pulse Resp B/P Pulse O2 O2 Flow FiO2 Ox Delivery Rate 12/24 0810 100 Nasal 3.0L Cannula 12/24 0115 95 Nasal 3.0L Cannula 12/24 0000 98.4 69 20 126/58 99 Nasal 3.0L Cannula 12/23 2149 98.4 69 20 112/52 12/23 2050 94 Nasal 3.0L Cannula 12/23 1600 99 Nasal 3.0L Cannula 12/23 1600 97.8 97 20 132/92 99 Nasal 3.0L Cannula Intake & Output 12/24 1600 12/24 0800 12/24 0000 Intake Total 240 240 Output Total Balance 240 240 Intake, Oral 240 240 Number 1 Bowel Movements Physical Exam General Appearance: Alert, Oriented X3, No Acute Distress HEENT: Mucous Membr. moist/pink Neck: Supple Cardiovascular: Regular Rate, Normal S1, Normal S2 Lungs: Clear to Auscultation Abdomen: Soft, No Tenderness, Positive Bowel Sounds Extremities: No Clubbing, No Cyanosis, No Edema Current Medications: Current Medications Sig/Tripp Start time Last Medication Dose Route Stop Time Status Admin Acetaminophen 650 MG Q6P PRN 12/19 1700 AC PO Albuterol Sulfate 3 ML TID 12/230 AC 12/24 INH 0810 Albuterol Sulfate 3 ML EVERY 4 HRS/AWAKE 12/19 2000 DC 12/23 INH 204 Albuterol Sulfate 2 PUF Q4-6 PRN PRN 12/19 170 AC INH Amlodipine Besylate 10 MG AT BEDTIME 12/19 2199 AC 12/23 PO 2148 Bisacodyl 5 MG AT BEDTIME 12/19 2199 AC 12/23 PO 214 Budesonide/ 2 PUF BID 12/19 2199 AC 12/24 Formoterol Fumarate INH 0845 Cholecalciferol 1,000 IU DAILY 12/20 1000 AC 12/23 PO 1023 Diltiazem HCl 120 MG DAILY 12/20 1000 AC 12/23 PO 1023 Epoetin Jerson 4,000 UNIT MoWeFr 12/20 1653 AC 12/22 IV 1315 Ferric Sodium 125 MG QWED@1200 12/22 1200 AC 12/22 Gluconate Complex IV 1300 Sodium Chloride 100 ML Furosemide 40 MG 7:30 AM, & 4:30 PM 12/20 0730 AC 12/23 PO 1636 Hydromorphone HCl 2 MG Q4P PRN 12/22 1030 AC 12/24 IV 0627 Lorazepam 2 MG QPM 12/19 2200 AC 12/23 PO 2150 Multivitamins 1 TAB DAILY 12/20 1000 AC 12/23 PO 1023 Oxycodone HCl 15 MG Q6 PRN 12/19 1700 AC 12/24 PO 0242 Paricalcitol 2 MCG MoWeFr 12/20 1653 AC 12/22 IV 1315 Polyethylene Glycol 17 GM DAILY 12/20 1000 AC 12/23 PO 1023 Prednisone 10 MG DAILY 12/20 1000 AC 12/23 PO 1023 Senna 187 MG AT BEDTIME 12/19 2200 AC 12/23 PO 2149 Sertraline HCl 100 MG DAILY 12/20 1000 AC 12/23 PO 1023 Sevelamer HCl 2,400 MG TIDAC 12/19 1700 AC 12/24 PO 0835 Tiotropium [place] 1 PUF DAILY 12/20 1000 AC 12/24 INH 0845 Last 24 Hrs of Lab/Thien Results Last 24 Hrs of Labs/Mics: Laboratory Tests 12/24/16 0420: Anion Gap 8, Estimated GFR 11 L, BUN/Creatinine Ratio 12.6, Calcium 8.6, Phosphorus 4.7 H, Magnesium 2.0, PT 37.3 H, INR 3.60 H, CBC w Diff NO MAN DIFF REQ, RBC 2.64 L, MCV 92.6, MCH 30.6, RDW 16.7 H, MPV 9.8, Gran % 83.8 H, Lymphocytes % 6.8 L, Monocytes % 8.0, Eosinophils % 1.4, Basophils % 0 L, Absolute Granulocytes 11.1 H, Absolute Lymphocytes 0.9 L, Absolute Monocytes 1.1 H, Absolute Eosinophils 0.2, Absolute Basophils 0, PUBS MCHC 33.1 12/23/161928: Anion Gap 10, Estimated GFR 12 L, Glucose 129 H, Calcium 8.3 L, Phosphorus 4.2, Magnesium 1.9, Total Bilirubin 0.6, AST 35, ALT 43, Albumin 2.5 L, CBC w Diff NO MAN DIFF REQ, RBC 2.66 L, MCV 91.8, MCH 30.4, RDW 16.9 H, MPV 8.6, Gran % 90.8 H, Lymphocytes % 3.1 L, Monocytes % 6.0, Eosinophils % 0.1, Basophils % 0 L, Absolute Granulocytes 12.9 H, Absolute Lymphocytes 0.4 L, Absolute Monocytes 0.9 H, Absolute Eosinophils 0, Absolute Basophils 0, PUBS MCHC 33.1 Assessment/Plan Assessment: 66 y/o F with PMHx of ESRD on HD and atrial fibrillation on warfarin, mitral stenosis s/p mechanical valve replacement who is admitted for L hip intertrochanteric failure 2/2 mechanical fall, now POD #5 s/p L hip IMHS, complicated by ABLA 2/2 hematoma at the surgical site while on bridging anticoagulation. #Supratherapeutic INR: INR has decreased to 3.60 today. INR goal is 2.5-3.5 given mechanical mitral valve. * Cardiology following. Appreciate their recs. * Continue to hold IV heparin and warfarin. * Continue to monitor INR. * ALPs for DVT PPx. * Appreciate orthopedic surgery input regarding resuming anticoagulation therapy. * Plan for Pro-Line placement for vascular access once INR is in acceptable range per radiology. #ABLA: Significant drop in H/H POD #2 s/p L hip IMHS while on bridging anticoagulation secondary to a postoperative hematoma. S/p 3 units of pRBCs. H/H stable, 8.1/24.4 today. * Continue to monitor H/H and transfuse as needed to keep Hgb > 8. #L hip intertrochanteric fracture: POD #5 s/p L hip IMHS. * Management per orthopedic surgery team. #ESRD: Secondary to presumed hypertensive nephrosclerosis. * Nephrology following. Appreciate their recs. * Next dialysis session scheduled on Tuesday. * Continue Epogen 4000 units IV and Zemplar 2 mcg IV three times per week with HD. * Continue Nephrocaps tab PO daily and Sevelamer 2400 mg PO TIDAC. Diet: Renal Dialysis Diet DVT PPx: ALPs CODE: DNR/DNI Problem List: 1. Intertrochanteric fracture of left hip 2. Acute blood loss anemia 3. Hematoma, postoperative 4. Hematoma of left hip 5. ESRD (end stage renal disease) on dialysis 6. Supratherapeutic INR 7. Chronic atrial fibrillation 8. H/O mitral valve replacement with mechanical valve Pain Ratin Pain Location: Left hip Pain Goal: Remain pain free Pain Plan: Dilaudid 2 mg IV Q4H PRN for severe pain (scale 7-10). Oxycodone 15 mg PO Q6H PRN for moderate pain (scale 4-6) Tylenol 650 mg PO Q6H PRN for mild pain (scale 1-3) Tomorrow's Labs & Rationales: CBC to monitor H/H in the setting of anemia BMP, Mg, Ca and Phos in the setting of ESRD on HD INR in the setting of supratherapeutic INR
[2016-12-24 07:25] LABS: HEMATOCRIT 24.4 % (37-47)
[2016-12-24 08:00] VITALS: BP 112/50
--- NOTE | 2016-12-24 09:18 | PN- Pulmonary ---
See Addendum Subjective HPI/Critical Care Issues: pt seen and examined doing well hgb stable awaiting inr to be decreased prior to proline Objective Current Medications: Current Medications Sig/Tripp Start time Last Medication Dose Route Stop Time Status Admin Acetaminophen 650 MG Q6P PRN 12/19 1700 AC PO Albuterol Sulfate 3 ML TID 12/23 2200 AC 12/24 INH 0810 Albuterol Sulfate 3 ML EVERY 4 HRS/AWAKE 12/19 1999 DC 12/23 INH 2047 Albuterol Sulfate 2 PUF Q4-6 PRN PRN 12/19 1700 AC INH Amlodipine Besylate 10 MG AT BEDTIME 12/19 2200 AC 12/23 PO 2149 Bisacodyl 5 MG AT BEDTIME 12/19 2200 AC 12/23 PO 2149 Budesonide/ 2 PUF BID 12/19 2200 AC 12/24 Formoterol Fumarate INH 0845 Cholecalciferol 1,000 IU DAILY 12/20 1000 AC 12/23 PO 1023 Diltiazem HCl 120 MG DAILY 12/20 1000 AC 12/23 PO 1023 Epoetin [place] 4,000 UNIT MoWeFr 12/20 1653 AC 12/22 IV 1315 Ferric Sodium 125 MG QWED@1200 12/22 1200 AC 12/22 Gluconate Complex IV 1300 Sodium Chloride 100 ML Furosemide 40 MG 7:30 AM, & 4:30 PM 12/20 0730 AC 12/23 PO 1636 Hydromorphone HCl 2 MG Q4P PRN 12/22 1030 AC 12/24 IV 0627 Lorazepam 2 MG QPM 12/19 2200 AC 12/23 PO 2150 Multivitamins 1 TAB DAILY 12/20 1000 AC 12/23 PO 1023 Oxycodone HCl 15 MG Q6 PRN 12/19 1700 AC 12/24 PO 0242 Paricalcitol 2 MCG MoWeFr 12/20 1653 AC 12/22 IV 1315 Polyethylene Glycol 17 GM DAILY 12/20 1000 AC 12/23 PO 1023 Prednisone 10 MG DAILY 12/20 1000 AC 12/23 PO 1023 Senna 187 MG AT BEDTIME 12/19 2200 AC 12/23 PO 2149 Sertraline HCl 100 MG DAILY 12/20 1000 AC 12/23 PO 1023 Sevelamer HCl 2,400 MG TIDAC 12/19 1700 AC 12/24 PO 0835 Tiotropium [place] 1 PUF DAILY 12/20 1000 AC 12/24 INH 0845 Vital Signs & I&O Last 24 Hrs of Vitals and I&O: Vital Signs Date Time Temp Pulse Resp B/P Pulse O2 O2 Flow FiO2 Ox Delivery Rate 12/24 0810 100 Nasal 3.0L Cannula 12/24 0115 95 Nasal 3.0L Cannula 12/24 0000 98.4 69 20 126/58 99 Nasal 3.0L Cannula 12/23 2149 98.4 69 20 112/52 12/23 2050 94 Nasal 3.0L Cannula 12/23 1600 99 Nasal 3.0L Cannula 12/23 1600 97.8 97 20 132/92 99 Nasal 3.0L Cannula Intake & Output 12/24 1600 12/24 0800 12/24 0000 Intake Total 240 240 Output Total Balance 240 240 Intake, Oral 240 240 Number 1 Bowel Movements Exam Other Physical Findings: gen awake and alert heent ncat cvs s1, s2 lungs rare rhonchi abd soft bs+ ext dressing intact Results Last 24 Hrs of Lab Results: Laboratory Tests 12/24/16 0420: Anion Gap 8, Estimated GFR 11 L, BUN/Creatinine Ratio 12.6, Calcium 8.6, Phosphorus 4.7 H, Magnesium 2.0, PT 37.3 H, INR 3.60 H, CBC w Diff NO MAN DIFF REQ, RBC 2.64 L, MCV 92.6, MCH 30.6, RDW 16.7 H, MPV 9.8, Gran % 83.8 H, Lymphocytes % 6.8 L, Monocytes % 8.0, Eosinophils % 1.4, Basophils % 0 L, Absolute Granulocytes 11.1 H, Absolute Lymphocytes 0.9 L, Absolute Monocytes 1.1 H, Absolute Eosinophils 0.2, Absolute Basophils 0, PUBS MCHC 33.1 12/23/16 1929: Anion Gap 10, Estimated GFR 12 L, Glucose 129 H, Calcium 8.3 L, Phosphorus 4.2, Magnesium 1.9, Total Bilirubin 0.6, AST 35, ALT 43, Albumin 2.5 L, CBC w Diff NO MAN DIFF REQ, RBC 2.66 L, MCV 91.8, MCH 30.4, RDW 16.9 H, MPV 8.6, Gran % 90.8 H, Lymphocytes % 3.1 L, Monocytes % 6.0, Eosinophils % 0.1, Basophils % 0 L, Absolute Granulocytes 12.9 H, Absolute Lymphocytes 0.4 L, Absolute Monocytes 0.9 H, Absolute Eosinophils 0, Absolute Basophils 0, PUBS MCHC 33.1 Impression/Plan Impression/Plan Impression/Plan: Impression 66 year old woman - retroperitoneal bleed in the setting of a hip fracture - mechanical mitral valve - COPD Plan - f/u orthopedics, surgery, nephrology, cardiology - monitor cbc, coags, hemodynamics - HD per renal, hgb stable, goal >8 or active bleeding for hgb - plan for proline once inr acceptable - DNR/DNI - TRC/Nebs GM hold Will sign off, call with any issues
--- NOTE | 2016-12-24 10:08 | NUR ---
DIALYSIS SCHEDULED FOR 1300 TODAY
--- NOTE | 2016-12-24 12:52 | PN- Att Addend ---
Attending Addendum Attending Brief Note Seems comfortable in bed last evening had shortness run rapid ventricular heartbeat was followed by cardiology and continue to monitor closely on telemetry vital signs are stable she's still pale and having some pain . Her vital signs are stable, last hemoglobin is 8.1, hematocrit 24.4, INR 3.60. Waiting for the INR to get closer to 2 then start heparin and then be able to get a good line in the meantime continue hemodialysis and pain management and physical therapy. Current Medications Sig/Tripp Start time Last Medication Dose Route Stop Time Status Admin Acetaminophen 650 MG Q6P PRN 12/19 170 AC PO Albuterol Sulfate 3 ML TID 12/23 2200 AC 12/24 INH 0810 Albuterol Sulfate 3 ML EVERY 4 HRS/AWAKE 12/19 2000 DC 12/23 INH 2047 Albuterol Sulfate 2 PUF Q4-6 PRN PRN 12/19 170 AC INH Amlodipine Besylate 10 MG AT BEDTIME 12/19 2199 AC 12/23 PO 2149 Bisacodyl 5 MG AT BEDTIME 12/19 2199 AC 12/23 PO 2149 Budesonide/ 2 PUF BID 12/19 2200 AC 12/24 Formoterol Fumarate INH 0845 Cholecalciferol 1,000 IU DAILY 12/20 1000 AC 12/23 PO 1023 Diltiazem HCl 120 MG DAILY 12/20 1000 AC 12/23 PO 1023 Epoetin [place] 4,000 UNIT MoWeFr 12/20 1653 AC 12/22 IV 1315 Ferric Sodium 125 MG QWED@1200 12/22 1200 AC 12/22 Gluconate Complex IV 1300 Sodium Chloride 100 ML Furosemide 40 MG 7:30 AM, & 4:30 PM 12/20 0730 AC 12/23 PO 1636 Hydromorphone HCl 2 MG Q4P PRN 12/22 1030 AC 12/24 IV 1059 Lorazepam 2 MG QPM 12/19 2200 AC 12/23 PO 2150 Multivitamins 1 TAB DAILY 12/20 1000 AC 12/23 PO 1023 Oxycodone HCl 15 MG Q6 PRN 12/19 1700 AC 12/24 PO 0242 Paricalcitol 2 MCG MoWeFr 12/20 1653 AC 12/22 IV 1315 Polyethylene Glycol 17 GM DAILY 12/20 1000 AC 12/23 PO 1023 Prednisone 10 MG DAILY 12/20 1000 AC 12/23 PO 1023 Senna 187 MG AT BEDTIME 12/19 2200 AC 12/23 PO 2149 Sertraline HCl 100 MG DAILY 12/20 1000 AC 12/23 PO 1023 Sevelamer HCl 2,400 MG TIDAC 12/19 1700 AC 12/24 PO 1232 Tiotropium [place] 1 PUF DAILY 12/20 1000 AC 12/24 INH 0845 Laboratory Tests 12/24/16 0420: Anion Gap 8, Estimated GFR 11 L, BUN/Creatinine Ratio 12.6, Calcium 8.6, Phosphorus 4.7 H, Magnesium 2.0, PT 37.3 H, INR 3.60 H, CBC w Diff NO MAN DIFF REQ, RBC 2.64 L, MCV 92.6, MCH 30.6, RDW 16.7 H, MPV 9.8, Gran % 83.8 H, Lymphocytes % 6.8 L, Monocytes % 8.0, Eosinophils % 1.4, Basophils % 0 L, Absolute Granulocytes 11.1 H, Absolute Lymphocytes 0.9 L, Absolute Monocytes 1.1 H, Absolute Eosinophils 0.2, Absolute Basophils 0, PUBS MCHC 33.1 12/23/161928: Anion Gap 10, Estimated GFR 12 L, Glucose 129 H, Calcium 8.3 L, Phosphorus 4.2, Magnesium 1.9, Total Bilirubin 0.6, AST 35, ALT 43, Albumin 2.5 L, CBC w Diff NO MAN DIFF REQ, RBC 2.66 L, MCV 91.8, MCH 30.4, RDW 16.9 H, MPV 8.6, Gran % 90.8 H, Lymphocytes % 3.1 L, Monocytes % 6.0, Eosinophils % 0.1, Basophils % 0 L, Absolute Granulocytes 12.9 H, Absolute Lymphocytes 0.4 L, Absolute Monocytes 0.9 H, Absolute Eosinophils 0, Absolute Basophils 0, PUBS MCHC 33.1 Vital Signs Date Time Temp Pulse Resp B/P Pulse O2 O2 Flow FiO2 Ox Delivery Rate 12/24 0810 100 Nasal 3.0L Cannula 12/24 0800 100 Nasal 3.0L Cannula 12/24 08 96.7 69 22 112/50 100 Nasal 3.0L Cannula Intake & Output 12/24 1600 Intake Total 240 Output Total 120 Balance 120 Intake, Oral 240 Number 0 Bowel Movements Output, Urine 120
--- NOTE | 2016-12-24 13:56 | NUR ---
Physical Therapy: Reconsult received. Pt currently RUBI at dialysis. Will follow up tomorrow as appopriate. Thank you.
--- NOTE | 2016-12-24 14:53 | Transfer of Care Summary ---
Hospital Course Course Hospital Course: Ms. Freeman is a 66 y/o F with PMHx of ESRD on HD, atrial fibrillation on warfarin, mitral stenosis s/p prosthetic valve replacement and COPD on 2 L home oxygen who was admitted on 12/17/16 with left intertrochanteric hip fracture secondary to a mechanical fall. Patient was seen by the orthopedic surgery team who decided to take her to the OR following cardiac clearance given her extensive cardiac history. Cardiology felt that given her mechanical mitral valve, patient was at a high risk for thromboembolic events if her anticoagulation was to be discontinued and suggested letting INR drift from 4.29 on admission, starting IV heparin drip once INR drops to < 2 and continuing the drip up until 4-6 hours prior to surgery. INR was reversed according to cardiology recommendations and patient was taken to the OR for L hip IMHS on day 3 of admission (12/19/16). IV heparin drip was continued on the evening of surgery with plan to transition to warfarin and patient received 3 mg of warfarin 1 day after the surgical intervention. The following day, patient had developed a large hematoma at the L gluteal, hip and proximal L thigh region as revealed by CT Scan and this was accompanied by a drop in her H/H from 9.1/28.6 to 5.9/18.1 as well as a rise in INR to 5.65. She was transfused 2 units of pRBCs during dialysis during which she had an episode of hypotension which prompted her to be transferred to the ICU for close hemodynamic monitoring. Below are the issues that were addressed during her stay in the ICU: Assessment/Plan: #Supratherapeutic INR: INR has further decreased from 5.65 to 3.60. INR goal is 2.5-3.5 given mechanical mitral valve. * Cardiology following. Appreciate their recs. * Continue to hold IV heparin and warfarin. * Continue to monitor INR. * ALPs for DVT PPx. * Appreciate orthopedic surgery input regarding resuming anticoagulation therapy. * Patient has no peripheral access if she needs emergent transfusion. Will plan for Pro-Line placement once INR is in acceptable range per radiology, most likely 2-2.5. * Continue PT. #ABLA: Secondary to surgical site hematoma which developed while on bridging anticoagulation following L hip IMHS. Has required 3 units of pRBC. Hgb is currently stable around 8. * Continue to monitor H/H and transfuse as needed to keep Hgb > 8. #L hip intertrochanteric fracture: POD #5 s/p L hip IMHS. * Management per orthopedic surgery team. * Continue Dilaudid 2 mg IV Q4H PRN for severe pain (scale 7-10), oxycodone 15 mg PO Q6H PRN for moderate pain (scale 4-6) and Tylenol 650 mg PO Q6H PRN for mild pain (scale 1-3). #ESRD: Secondary to presumed hypertensive nephrosclerosis. * Nephrology following. Appreciate their recs. * Continue HD MWF. * Continue Epogen 4000 units IV and Zemplar 2 mcg IV three times per week with HD. * Continue Nephrocaps tab PO daily and Sevelamer 2400 mg PO TIDAC. Diet: Renal Dialysis DVT PPx: ALPs CODE: DNR/DNI
--- NOTE | 2016-12-24 15:18 | PN- Nephrology ---
Assessment/Plan Assessment: ESRD - Hemodynamically stable with stable H/H - due for dialysis today. Has some edema and normally gets ~2-3L taken off with dialysis as an outpatient. Weights here likely not accurate - will start to remove fluid. Hip fracture c/b bleeding - Hg seems to have stabilized. INR still elevated ( has mechanical MV). On Epogen with dialysis. 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 INR elevated with meds held. Suggestion: -Dialysis today - 2.5L UF as tolerated -Cont Epogen -Cont Zemplar -AC as per Cards/Ortho Subjective Subjective: Hg 8.1 Pt overall feels OK Objective Vital Signs and I&Os Vital Signs Date Time Temp Pulse Resp B/P Pulse O2 O2 Flow FiO2 Ox Delivery Rate 12/24 1436 Nasal 3.0L Cannula 12/24 0810 100 Nasal 3.0L Cannula 12/24 0800 100 Nasal 3.0L Cannula 12/24 0800 96.7 69 22 112/50 100 Nasal 3.0L Cannula 12/24 0115 95 Nasal 3.0L Cannula 12/24 0000 98.4 69 20 126/58 99 Nasal 3.0L Cannula 12/23 2149 98.4 69 20 112/52 12/23 2050 94 Nasal 3.0L Cannula 12/23 1600 99 Nasal 3.0L Cannula 12/23 1600 97.8 97 20 132/92 99 Nasal 3.0L Cannula Intake & Output 12/24 1600 12/24 0400 12/23 1600 12/23 0400 12/22 1600 12/22 0400 Intake Total 480 240 920 240 600 240 Output Total 120 400 0 Balance 360 240 920 240 200 240 Intake, IV 40 Intake, Oral 480 240 920 240 560 240 Number 0 1 2 2 1 Bowel Movements Output, Urine 120 400 0 Patient 180 lb 176 lb 186 lb Weight Physical Exam: Gen - improved appearance HEENT - supple CV - RRR Chest - clear anteriorly Abd - soft, nontender Ext - R>L trace edema Skin - no bruising visible by L hip Neuro - AOX3 Current Medications: Current Medications Sig/Tripp Start time Last Medication Dose Route Stop Time Status Admin Acetaminophen 650 MG Q6P PRN 12/19 1700 AC PO Albuterol Sulfate 3 ML TID 12/23 2200 AC 12/24 INH 1304 Albuterol Sulfate 3 ML EVERY 4 HRS/AWAKE 12/19 1999 DC 12/23 INH 2047 Albuterol Sulfate 2 PUF Q4-6 PRN PRN 12/19 1700 AC INH Amlodipine Besylate 10 MG AT BEDTIME 12/19 2200 AC 12/23 PO 2149 Bisacodyl 5 MG AT BEDTIME 12/19 2200 AC 12/23 PO 2149 Budesonide/ 2 PUF BID 12/19 2200 AC 12/24 Formoterol Fumarate INH 0845 Cholecalciferol 1,000 IU DAILY 12/20 1000 AC 12/23 PO 1023 Diltiazem HCl 120 MG DAILY 12/20 1000 AC 12/23 PO 1023 Epoetin Jerson 4,000 UNIT MoWeFr 12/20 1653 AC 12/22 IV 1315 Ferric Sodium 125 MG QWED@1200 12/22 1200 AC 12/22 Gluconate Complex IV 1300 Sodium Chloride 100 ML Furosemide 40 MG 7:30 AM, & 4:30 PM 12/20 0730 AC 12/23 PO 1636 Hydromorphone HCl 2 MG Q4P PRN 12/22 1030 AC 12/24 IV 1059 Iron Sucrose 50 MG ONCE ONE 12/24 1445 CAN Sodium Chloride 100 ML IV 12/24 1459 Lorazepam 2 MG QPM 12/19 2200 AC 12/23 PO 2150 Multivitamins 1 TAB DAILY 12/20 1000 AC 12/23 PO 1023 Oxycodone HCl 15 MG Q6 PRN 12/19 1700 AC 12/24 PO 0242 Paricalcitol 2 MCG MoWeFr 12/20 1653 AC 12/22 IV 1315 Polyethylene Glycol 17 GM DAILY 12/20 1000 AC 12/23 PO 1023 Prednisone 10 MG DAILY 12/20 1000 AC 12/23 PO 1023 Senna 187 MG AT BEDTIME 12/19 2200 AC 12/23 PO 2149 Sertraline HCl 100 MG DAILY 12/20 1000 AC 12/23 PO 1023 Sevelamer HCl 2,400 MG TIDAC 12/19 1700 AC 12/24 PO 1232 Tiotropium [place] 1 PUF DAILY 12/20 1000 AC 12/24 INH 0845 Results Pertinent Lab Results: Laboratory Tests 12/24 12/23 0420 1929 Chemistry Sodium (137 - 145 mmol/L) 136 L 136 L Potassium (3.5 - 5.1 mmol/L) 4.4 4.3 Chloride (98 - 107 mmol/L) 100 99 Carbon Dioxide (22 - 30 mmol/L) 27 28 Anion Gap (5 - 16) 8 10 BUN (7 - 17 mg/dL) 53 H 45 H Creatinine (0.5 - 1.0 mg/dL) 4.2 H 3.9 H Estimated GFR (>60 ml/min) 11 L 12 L BUN/Creatinine Ratio (7 - 25 %) 12.6 Glucose (65 - 99 mg/dL) 129 H Calcium (8.4 - 10.2 mg/dL) 8.6 8.3 L Phosphorus (2.5 - 4.5 mg/dL) 4.7 H 4.2 Magnesium (1.6 - 2.3 mg/dL) 2.0 1.9 Total Bilirubin (0.2 - 1.3 mg/dL) 0.6 AST (14 - 36 U/L) 35 ALT (9 - 52 U/L) 43 Albumin (3.5 - 5.0 g/dL) 2.5 L Coagulation PT (9.4 - 12.5 SEC) 37.3 H INR (0.90 - 1.19) 3.60 H Hematology CBC w Diff NO MAN DIFF REQ NO MAN DIFF REQ WBC (4.8 - 10.8 /CUMM) 13.3 H 14.2 H RBC (4.20 - 5.40 /CUMM) 2.64 L 2.66 L Hgb (12.0 - 16.0 G/DL) 8.1 L 8.1 L Hct (37 - 47 %) 24.4 L 24.4 L MCV (81.0 - 99.0 FL) 92.6 91.8 MCH (27.0 - 31.0 PG) 30.6 30.4 RDW (11.5 - 14.5 %) 16.7 H 16.9 H Plt Count (130 - 400 /CUMM) 210 215 MPV (7.4 - 10.4 FL) 9.8 8.6 Gran % (42.2 - 75.2 %) 83.8 H 90.8 H Lymphocytes % (20.5 - 51.1 %) 6.8 L 3.1 L Monocytes % (1.7 - 9.3 %) 8.0 6.0 Eosinophils % (0 - 5 %) 1.4 0.1 Basophils % (0.0 - 2.0 %) 0 L 0 L Absolute Granulocytes (1.4 - 6.5 /CUMM) 11.1 H 12.9 H Absolute Lymphocytes (1.2 - 3.4 /CUMM) 0.9 L 0.4 L Absolute Monocytes (0.10 - 0.60 /CUMM) 1.1 H 0.9 H Absolute Eosinophils (0.0 - 0.7 /CUMM) 0.2 0 Absolute Basophils (0.0 - 0.2 /CUMM) 0 0 PUBS MCHC (33.0 - 37.0 G/DL) 33.1 33.1 03/02 03/01 0720 1712 Chemistry Sodium (137 - 145 mmol/L) 138 Potassium (3.5 - 5.1 mmol/L) 3.7 Chloride (98 - 107 mmol/L) 101 Carbon Dioxide (22 - 30 mmol/L) 29 Anion Gap (5 - 16) 7 BUN (7 - 17 mg/dL) 30 H Creatinine (0.5 - 1.0 mg/dL) 3.1 H Estimated GFR (>60 ml/min) 15 L BUN/Creatinine Ratio (7 - 25 %) 9.7 Calcium (8.4 - 10.2 mg/dL) 8.6 Phosphorus (2.5 - 4.5 mg/dL) 3.9 Magnesium (1.6 - 2.3 mg/dL) 2.0 Coagulation PT (9.4 - 12.5 SEC) 48.1 *H INR (0.90 - 1.19) 4.65 *H Hematology CBC w Diff NO MAN DIFF REQ MAN DIFF ORDERED WBC (4.8 - 10.8 /CUMM) 12.8 H 12.4 H RBC (4.20 - 5.40 /CUMM) 2.87 L 2.73 L Hgb (12.0 - 16.0 G/DL) 8.8 L 8.4 L Hct (37 - 47 %) 26.4 L 24.7 L MCV (81.0 - 99.0 FL) 92.0 90.6 MCH (27.0 - 31.0 PG) 30.5 30.6 RDW (11.5 - 14.5 %) 16.6 H 16.6 H Plt Count (130 - 400 /CUMM) 209 179 MPV (7.4 - 10.4 FL) 9.0 8.9 Gran % (42.2 - 75.2 %) 82.9 H 88.1 H Lymphocytes % (20.5 - 51.1 %) 6.8 L 3.0 L Monocytes % (1.7 - 9.3 %) 9.3 8.6 Eosinophils % (0 - 5 %) 0.9 0.2 Basophils % (0.0 - 2.0 %) 0.1 0.1 Absolute Granulocytes (1.4 - 6.5 /CUMM) 10.6 H 10.9 H Segmented Neutrophils (42.2 - 75.2 %) 82 H Band Neutrophils (0.0 - 5.0 %) 5 Absolute Lymphocytes (1.2 - 3.4 /CUMM) 0.9 L 0.4 L Lymphocytes (20.5 - 51.1 %) 5 L Monocytes (1.7 - 9.3 %) 8 Absolute Monocytes (0.10 - 0.60 /CUMM) 1.2 H 1.1 H Absolute Eosinophils (0.0 - 0.7 /CUMM) 0.1 0 Absolute Basophils (0.0 - 0.2 /CUMM) 0 0 Platelet Estimate (ADEQUATE) ADEQUATE Polychromasia 2+ Hypochromic-Microcytic 2+ Basophilic Stippling 1+ Anisocytosis 1+ Macrocytic Cells 1+ PUBS MCHC (33.0 - 37.0 G/DL) 33.2 33.8 03/ 03/ 03/ 0500 0155 0000 Chemistry Sodium (137 - 145 mmol/L) Cancelled 136 L Potassium (3.5 - 5.1 mmol/L) Cancelled 4.5 Chloride (98 - 107 mmol/L) Cancelled 101 Carbon Dioxide (22 - 30 mmol/L) Cancelled 26 Anion Gap (5 - 16) Cancelled 10 BUN (7 - 17 mg/dL) Cancelled 50 H Creatinine (0.5 - 1.0 mg/dL) Cancelled 4.0 H Estimated GFR (>60 ml/min) 11 L Glucose (65 - 99 mg/dL) Cancelled 111 H Calcium (8.4 - 10.2 mg/dL) Cancelled 8.1 L Phosphorus (2.5 - 4.5 mg/dL) Cancelled 6.0 H Magnesium (1.6 - 2.3 mg/dL) Cancelled 1.9 Total Bilirubin (0.2 - 1.3 mg/dL) Cancelled 0.4 AST (14 - 36 U/L) Cancelled 31 ALT (9 - 52 U/L) Cancelled 42 Troponin I (< 0.11 ng/ml) 0.03 Cancelled Albumin (3.5 - 5.0 g/dL) Cancelled 2.2 L Coagulation PT (9.4 - 12.5 SEC) Cancelled 58.3 *H INR (0.90 - 1.19) Cancelled 5.65 *H Hematology CBC w Diff NO MAN DIFF REQ WBC (4.8 - 10.8 /CUMM) 10.7 RBC (4.20 - 5.40 /CUMM) 2.48 L Hgb (12.0 - 16.0 G/DL) 7.5 L Hct (37 - 47 %) 22.7 L MCV (81.0 - 99.0 FL) 91.6 MCH (27.0 - 31.0 PG) 30.4 RDW (11.5 - 14.5 %) 16.8 H Plt Count (130 - 400 /CUMM) 189 MPV (7.4 - 10.4 FL) 10.0 Gran % (42.2 - 75.2 %) 82.0 H Lymphocytes % (20.5 - 51.1 %) 6.7 L Monocytes % (1.7 - 9.3 %) 11.0 H Eosinophils % (0 - 5 %) 0.3 Basophils % (0.0 - 2.0 %) 0 L Absolute Granulocytes (1.4 - 6.5 /CUMM) 8.8 H Absolute Lymphocytes (1.2 - 3.4 /CUMM) 0.7 L Absolute Monocytes (0.10 - 0.60 /CUMM) 1.2 H Absolute Eosinophils (0.0 - 0.7 /CUMM) 0 Absolute Basophils (0.0 - 0.2 /CUMM) 0 PUBS MCHC (33.0 - 37.0 G/DL) 33.2 12/21 1736 Chemistry Troponin I (< 0.11 ng/ml) 0.03 Hematology CBC w Diff NO MAN DIFF REQ WBC (4.8 - 10.8 /CUMM) 13.5 H RBC (4.20 - 5.40 /CUMM) 2.61 L Hgb (12.0 - 16.0 G/DL) 7.9 L Hct (37 - 47 %) 23.9 L MCV (81.0 - 99.0 FL) 91.7 MCH (27.0 - 31.0 PG) 30.1 RDW (11.5 - 14.5 %) 16.0 H Plt Count (130 - 400 /CUMM) 197 MPV (7.4 - 10.4 FL) 9.1 Gran % (42.2 - 75.2 %) 87.6 H Lymphocytes % (20.5 - 51.1 %) 4.9 L Monocytes % (1.7 - 9.3 %) 7.4 Eosinophils % (0 - 5 %) 0.1 Basophils % (0.0 - 2.0 %) 0 L Absolute Granulocytes (1.4 - 6.5 /CUMM) 11.8 H Absolute Lymphocytes (1.2 - 3.4 /CUMM) 0.7 L Absolute Monocytes (0.10 - 0.60 /CUMM) 1.0 H Absolute Eosinophils (0.0 - 0.7 /CUMM) 0 Absolute Basophils (0.0 - 0.2 /CUMM) 0 PUBS MCHC (33.0 - 37.0 G/DL) 32.8 L Imaging/Other Studies: No new imaging
[2016-12-24 15:38] LABS: ABSOLUTE BASOPHIL COUNT 0 /CUMM (0.0-0.2); ABSOLUTE EOSINOPHIL COUNT 0.3 /CUMM (0.0-0.7); ABSOLUTE GRANULOCYTE CT 11.8 /CUMM (1.4-6.5); ABSOLUTE LYMPH COUNT 0.8 /CUMM (1.2-3.4); ABSOLUTE MONOCYTE COUNT 1.1 /CUMM (0.10-0.60); BASOPHIL % 0.1 % (0.0-2.0); GRANULOCYTE % 84.5 % (42.2-75.2); HEMATOCRIT 24.9 % (37-47); MEAN CORPUSCULAR HGB 30.3 PG (27.0-31.0); MEAN CORPUSCULAR HGB CONC 33.1 G/DL (33.0-37.0); MEAN CORPUSCULAR VOLUME 91.7 FL (81.0-99.0); MEAN PLATELET VOLUME 8.8 FL (7.4-10.4); PLATELET COUNT 251 /CUMM (130-400); RBC DISTRIBUTION WIDTH 16.1 % (11.5-14.5); RED BLOOD CELL CT 2.72 /CUMM (4.20-5.40); WHITE BLOOD CELL COUNT 13.9 /CUMM (4.8-10.8)
[2016-12-24 16:00] VITALS: BP 100/60
--- NOTE | 2016-12-24 17:51 | PN- Cardiology ---
Subjective Subjective: Presently undergoing hemodialysis. States that she is feeling "cold". She also admits to left hip pain. On telemetry she has a properly functioning pacemaker and underlying atrial fibrillation with a controlled ventricular response. At present she has a rate of approximately 68 bpm. Objective Vital Signs and I&Os Vital Signs Date Time Temp Pulse Resp B/P Pulse O2 O2 Flow FiO2 Ox Delivery Rate 12/24 1436 Nasal 3.0L Cannula 12/24 0810 100 Nasal 3.0L Cannula 12/24 08 100 Nasal 3.0L Cannula 12/24 0800 96.7 69 22 112/50 100 Nasal 3.0L Cannula 12/24 0115 95 Nasal 3.0L Cannula 12/24 0000 98.4 69 20 126/58 99 Nasal 3.0L Cannula 12/23 2149 98.4 69 20 112/52 12/23 2049 94 Nasal 3.0L Cannula Intake & Output 12/24 1600 12/24 0800 12/24 0000 12/23 1600 12/23 0800 12/23 0000 Intake Total 240 240 240 720 200 240 Output Total 120 Balance 120 240 240 720 200 240 Intake, Oral 240 240 240 720 200 240 Number 0 1 2 2 Bowel Movements Output, Urine 120 Patient 180 lb Weight Physical Exam: Well developed, pale appearing female in no acute distress nasal oxygen in place. Vital signs: See above. Lungs: Decreased breath sounds and otherwise clear to auscultation. Heart: S1, S2 with appropriate mechanical valve sounds and grade 2/6 systolic murmur. Extremities: Trace edema. Current Medications: Current Medications Sig/Tripp Start time Last Medication Dose Route Stop Time Status Admin Acetaminophen 650 MG Q6P PRN 12/19 170 AC PO Albuterol Sulfate 3 ML TID 12/230 AC 12/24 INH 1304 Albuterol Sulfate 3 ML EVERY 4 HRS/AWAKE 12/19 2000 DC 12/23 INH 2047 Albuterol Sulfate 2 PUF Q4-6 PRN PRN 12/19 170 AC INH Amlodipine Besylate 10 MG AT BEDTIME 12/19 2199 AC 12/23 PO 9 Bisacodyl 5 MG AT BEDTIME 12/19 2199 AC 12/23 PO 2149 Budesonide/ 2 PUF BID 12/19 2199 AC 12/24 Formoterol Fumarate INH 0845 Cholecalciferol 1,000 IU DAILY 12/20 1000 AC 12/23 PO 1023 Diltiazem HCl 120 MG DAILY 12/20 1000 AC 12/23 PO 1023 Epoetin [place] 4,000 UNIT MoWeFr 12/20 1653 AC 12/22 IV 1315 Ferric Sodium 125 MG QWED@1200 12/22 1200 AC 12/22 Gluconate Complex IV 1300 Sodium Chloride 100 ML Furosemide 40 MG 7:30 AM, & 4:30 PM 12/20 0730 AC 12/23 PO 1636 Hydromorphone HCl 2 MG Q4P PRN 12/22 1030 12/24 IV 1059 Iron Sucrose 50 MG ONCE ONE 12/24 1445 CAN Sodium Chloride 100 ML IV 12/24 1459 Lorazepam 2 MG QPM 12/19 2200 AC 12/23 PO 2150 Multivitamins 1 TAB DAILY 12/20 1000 AC 12/23 PO 1023 Oxycodone HCl 15 MG Q6 PRN 12/19 1700 AC 12/24 PO 0242 Paricalcitol 2 MCG MoWeFr 12/20 1653 AC 12/22 IV 1315 Polyethylene Glycol 17 GM DAILY 12/20 1000 AC 12/23 PO 1023 Prednisone 10 MG DAILY 12/20 1000 AC 12/23 PO 1023 Senna 187 MG AT BEDTIME 12/19 2200 AC 12/23 PO 2149 Sertraline HCl 100 MG DAILY 12/20 1000 AC 12/23 PO 1023 Sevelamer HCl 2,400 MG TIDAC 12/19 1700 AC 12/24 PO 1232 Tiotropium [place] 1 PUF DAILY 12/20 1000 AC 12/24 INH 0845 Results Last 48 Hrs of Labs/Mics: Laboratory Tests 12/24/16 1445: Anion Gap 12, Estimated GFR 9 L, BUN/Creatinine Ratio 11.9, Glucose 120 H, CBC w Diff NO MAN DIFF REQ, RBC 2.72 L, MCV 91.7, MCH 30.3, RDW 16.1 H, MPV 8.8, Gran % 84.5 H, Lymphocytes % 5.6 L, Monocytes % 7.8, Eosinophils % 2.0, Basophils % 0.1, Absolute Granulocytes 11.8 H, Absolute Lymphocytes 0.8 L, Absolute Monocytes 1.1 H, Absolute Eosinophils 0.3, Absolute Basophils 0, PUBS MCHC 33.1 12/24/16 0420: Anion Gap 8, Estimated GFR 11 L, BUN/Creatinine Ratio 12.6, Calcium 8.6, Phosphorus 4.7 H, Magnesium 2.0, PT 37.3 H, INR 3.60 H, CBC w Diff NO MAN DIFF REQ, RBC 2.64 L, MCV 92.6, MCH 30.6, RDW 16.7 H, MPV 9.8, Gran % 83.8 H, Lymphocytes % 6.8 L, Monocytes % 8.0, Eosinophils % 1.4, Basophils % 0 L, Absolute Granulocytes 11.1 H, Absolute Lymphocytes 0.9 L, Absolute Monocytes 1.1 H, Absolute Eosinophils 0.2, Absolute Basophils 0, PUBS MCHC 33.1 12/23/16 1929: Anion Gap 10, Estimated GFR 12 L, Glucose 129 H, Calcium 8.3 L, Phosphorus 4.2, Magnesium 1.9, Total Bilirubin 0.6, AST 35, ALT 43, Albumin 2.5 L, CBC w Diff NO MAN DIFF REQ, RBC 2.66 L, MCV 91.8, MCH 30.4, RDW 16.9 H, MPV 8.6, Gran % 90.8 H, Lymphocytes % 3.1 L, Monocytes % 6.0, Eosinophils % 0.1, Basophils % 0 L, Absolute Granulocytes 12.9 H, Absolute Lymphocytes 0.4 L, Absolute Monocytes 0.9 H, Absolute Eosinophils 0, Absolute Basophils 0, PUBS MCHC 33.1 12/23/16 0720: Anion Gap 7, Estimated GFR 15 L, BUN/Creatinine Ratio 9.7, Calcium 8.6, Phosphorus 3.9, Magnesium 2.0, PT 48.1 *H, INR 4.65 *H, CBC w Diff NO MAN DIFF REQ, RBC 2.87 L, MCV 92.0, MCH 30.5, RDW 16.6 H, MPV 9.0, Gran % 82.9 H, Lymphocytes % 6.8 L, Monocytes % 9.3, Eosinophils % 0.9, Basophils % 0.1, Absolute Granulocytes 10.6 H, Absolute Lymphocytes 0.9 L, Absolute Monocytes 1.2 H, Absolute Eosinophils 0.1, Absolute Basophils 0, PUBS MCHC 33.2 Assessment/Plan Assessment/Plan Mrs. Freeman is a hemodynamically stable 66-year-old female with multiple medical problems: * POD #5 orthopedic surgery for mechanical fall complicated by surgical site hematoma requiring PRBCs 3 while on bridging anticoagulation. * RHD w/ MS s/p mechanical mitral valve prosthesis. * Chronic atrial fibrillation s/p AVN ablation for RVR w/ biV pacemaker. * Previous, remote TIA on Warfarin anticoagulation. * Supratherapeutic, but trending downward, INR (3.6) with anticoagulation on hold who, fortunately, has remained relatively hemodynamically stable with H/H 8.2/24.5 today. * ESRD on HD. Recommendations: * Continue to allow her INR to come down on its own and restart anticoagulation when orthopedic surgery deems it appropriate. * Consider discontinuing telemetry if H&H stable in a.m. * Continue HD for ESRD. * DVT prophylaxis being addressed by supratherapeutic INR. Continue telemetry? Yes
[2016-12-25 00:12] VITALS: BP 137/64
[2016-12-25 07:34] VITALS: BP 113/56
--- NOTE | 2016-12-25 08:14 | PN- Housestaff ---
Subjective Follow-up For: post surgical hematoma 31 beat vtach Tele-Events Since Last Visit: single pacing , rate 60s-70s Subjective: Pt was seen this morning, appeared comfortable lying in bed. She has not ambulated much and refused PT yesterday. Rated 7/10 pain from her recent left hip surgery. But pain bearable with current pain regimen. Noted drop in INR from 3.6 to 1.82. Pt has limited access, will start IV heparin for anticoagulation. Will consult attending regarding starting warfarin as there was discussion regarding possibly putting pro line in case she needs IV access for blood transfusion. her home warfarin is 2.5 mg daily. h/h still pending from today but over the past few days, her hb has been around 8.2 (last transfusion on 12/22) noted improvement in cr from 4.8 to 2.9. Review of Systems Constitutional: Denies: chills, fever. EENTM: Denies: visual changes. Cardiovascular: Denies: chest pain. Respiratory: Reports: cough. Denies: short of breath, sputum production. Gastrointestinal: Denies: abdominal pain. Objective Last 24 Hrs of Vital Signs/I&O Vital Signs Date Time Temp Pulse Resp B/P Pulse O2 O2 Flow FiO2 Ox Delivery Rate 12/25 0849 98 Nasal 3.0L Cannula 12/25 0734 98.3 69 18 113/56 99 Nasal 3.0L Cannula 12/25 0012 98.3 70 20 137/64 98 12/25 0000 Nasal 3.0L Cannula 12/24 2228 76 112/50 12/24 1840 97 Nasal 3.0L Cannula 12/24 1600 97.0 69 18 100/60 12/24 1600 96 Nasal 3.0L Cannula 12/24 1436 Nasal 3.0L Cannula Intake & Output 12/25 1600 12/25 0800 12/25 0000 Intake Total 100 500 Output Total 0 Balance 100 500 Intake, IV 20 Intake, Oral 100 480 Number 0 Bowel Movements Output, Urine 0 Patient 80.286 kg Weight Physical Exam General Appearance: Alert, Oriented X3, Cooperative, No Acute Distress Skin: No Significant Lesion HEENT: Atraumatic Cardiovascular: Regular Rate, Normal S1, Normal S2, No Murmurs, Gallops, Rubs Lungs: diffuse wheezing (baseline) Abdomen: Normal Bowel Sounds, Soft, No Tenderness Neurological: Normal Speech Extremities: No Edema, serosenguinous drainage from surgical site. left hip hematoma Current Medications: Current Medications Sig/Tripp Start time Last Medication Dose Route Stop Time Status Admin Acetaminophen 650 MG Q6P PRN 12/19 1700 AC PO Albuterol Sulfate 3 ML TID 12/23 2200 AC 12/25 INH 0849 Albuterol Sulfate 2 PUF Q4-6 PRN PRN 12/19 1700 AC INH Amlodipine Besylate 10 MG AT BEDTIME 12/19 2200 AC 12/24 PO 2228 Bisacodyl 5 MG AT BEDTIME 12/19 2200 AC 12/24 PO 2225 Budesonide/ 2 PUF BID 12/19 2200 AC 12/25 Formoterol Fumarate INH 1024 Cholecalciferol 1,000 IU DAILY 12/20 1000 AC 12/25 PO 1024 Diltiazem HCl 120 MG DAILY 12/20 1000 AC 12/25 PO 1024 Epoetin [place] 4,000 UNIT MoWeFr 12/20 1653 AC 12/24 IV 1700 Ferric Sodium 125 MG QWED@1200 12/22 1200 AC 12/22 Gluconate Complex IV 1300 Sodium Chloride 100 ML Furosemide 40 MG 7:30 AM, & 4:30 PM 12/20 0730 AC 12/25 PO 0819 Heparin Sodium 25,000 UNIT Q24H 12/25 1000 AC (Porcine) IV Sodium Chloride 500 ML Hydromorphone HCl 2 MG Q4P PRN 12/22 1030 AC 12/25 IV 1009 Iron Sucrose 50 MG ONCE ONE 12/24 1445 CAN Sodium Chloride 100 ML IV 12/24 1459 Lorazepam 2 MG QPM 12/19 2200 AC 12/24 PO 2225 Multivitamins 1 TAB DAILY 12/20 1000 AC 12/25 PO 1024 Oxycodone HCl 15 MG Q6 PRN 12/19 1700 AC 12/25 PO 0819 Paricalcitol 2 MCG MoWeFr 12/20 1653 AC 12/24 IV 1700 Polyethylene Glycol 17 GM DAILY 12/20 1000 AC 12/24 PO 1855 Prednisone 10 MG DAILY 12/20 1000 AC 12/25 PO 1024 Senna 187 MG AT BEDTIME 12/19 2200 AC 12/24 PO 2225 Sertraline HCl 100 MG DAILY 12/20 1000 AC 12/25 PO 1024 Sevelamer HCl 2,400 MG TIDAC 12/19 1700 AC 12/25 PO 0819 Tiotropium [place] 1 PUF DAILY 12/20 1000 AC 12/25 INH 1024 Warfarin Sodium 2.5 MG COUMADIN 1700 ONE 12/25 1700 CAN PO 12/25 1701 Last 24 Hrs of Lab/Thien Results Last 24 Hrs of Labs/Mics: Laboratory Tests 12/25/16 0610: Anion Gap 14, Estimated GFR 16 L, BUN/Creatinine Ratio 12.1, Calcium 8.4, Phosphorus 3.8, Magnesium 1.9, PT 19.0 H, INR 1.82 H, CBC w Diff Pending, WBC Pending, RBC Pending, Hgb Pending, Hct Pending, MCV Pending, MCH Pending, RDW Pending, Plt Count Pending, MPV Pending, PUBS MCHC Pending 12/24/16 1445: Anion Gap 12, Estimated GFR 9 L, BUN/Creatinine Ratio 11.9, Glucose 120 H, CBC w Diff NO MAN DIFF REQ, RBC 2.72 L, MCV 91.7, MCH 30.3, RDW 16.1 H, MPV 8.8, Gran % 84.5 H, Lymphocytes % 5.6 L, Monocytes % 7.8, Eosinophils % 2.0, Basophils % 0.1, Absolute Granulocytes 11.8 H, Absolute Lymphocytes 0.8 L, Absolute Monocytes 1.1 H, Absolute Eosinophils 0.3, Absolute Basophils 0, PUBS MCHC 33.1 Assessment/Plan Assessment: 66 y/o F with PMHx of ESRD on HD and atrial fibrillation on warfarin, mitral stenosis s/p mechanical valve replacement who is admitted for L hip intertrochanteric failure 2/2 mechanical fall, now POD #5 s/p L hip IMHS, complicated by ABLA 2/2 hematoma at the surgical site while on bridging anticoagulation. #Supratherapeutic INR (resolved): INR decreased from 3.6 to 1.82 on 12/25. - INR goal is 2.5-3.5 given mechanical mitral valve. * Cardiology following. Appreciate their recs. * IV heparin for anticoagulation on 12/25. Will consult attending regarding starting warfarin as there was discussion regarding possibly putting proline in case she needs blood transfusion while she is on heparin (she has 1 X 24 gauge access on right antecubital fossa that is new, and her nurse said that she can probably get another line if necessary for transfusion). Her home warfarin is 2.5 mg daily. Hg 9.2 today. Will HOLD WARFARIN for now, consider starting on tuesday or tuesday. * Continue to monitor INR. * ALPs for DVT PPx. * Appreciate orthopedic surgery input regarding resuming anticoagulation therapy. * Plan for Pro-Line placement for vascular access once INR is in acceptable range per radiology. #ABLA: Significant drop in H/H POD #2 s/p L hip IMHS while on bridging anticoagulation secondary to a postoperative hematoma. S/p 3 units of pRBCs. H/H stable, 8.1/24.4 * Continue to monitor H/H and transfuse as needed to keep Hgb > 8. * h/h still pending from today but over the past few days, her hb has been around 8.2 (last transfusion on 12/22) --> now 9.2 # L hip intertrochanteric fracture: POD #6 s/p L hip IMHS. * Management per orthopedic surgery team. # ESRD: Secondary to presumed hypertensive nephrosclerosis. - noted improvement in cr from 4.8 to 2.9 on 12/25. * Nephrology following. Appreciate their recs. * Continue Epogen 4000 units IV and Zemplar 2 mcg IV three times per week with HD. * Continue Nephrocaps tab PO daily and Sevelamer 2400 mg PO TIDAC. Diet: Renal Dialysis Diet DVT PPx: ALPs CODE: DNR/DNI Problem List: 1. Hematoma of left hip Pain Ratin Pain Location: left hip Pain Goal: Pain 7 or less Pain Plan: mod pp Tomorrow's Labs & Rationales: cbc for abla bep for ckd inr for wafarin dosing DVT/Prophylaxis: mechanical, pharmacological
[2016-12-25 08:36] LABS: ABSOLUTE BASOPHIL COUNT 0 /CUMM (0.0-0.2); ABSOLUTE EOSINOPHIL COUNT 0 /CUMM (0.0-0.7); ABSOLUTE GRANULOCYTE CT 14.6 /CUMM (1.4-6.5); ABSOLUTE LYMPH COUNT 0.9 /CUMM (1.2-3.4); ABSOLUTE MONOCYTE COUNT 1.2 /CUMM (0.10-0.60); BASOPHIL % 0.1 % (0.0-2.0); EOSINOPHIL % 0.2 % (0-5); GRANULOCYTE % 86.9 % (42.2-75.2); HEMATOCRIT 28.3 % (37-47); MEAN CORPUSCULAR HGB 30.6 PG (27.0-31.0); MEAN CORPUSCULAR HGB CONC 32.5 G/DL (33.0-37.0); MEAN CORPUSCULAR VOLUME 94.2 FL (81.0-99.0); MEAN PLATELET VOLUME 8.8 FL (7.4-10.4); PLATELET COUNT 279 /CUMM (130-400); RBC DISTRIBUTION WIDTH 17.1 % (11.5-14.5)
[2016-12-25 11:45] LABS: WHITE BLOOD CELL COUNT 16.8 /CUMM (4.8-10.8)
--- NOTE | 2016-12-25 13:29 | PN- Att Addend ---
Attending Addendum Attending Brief Note Patient feeling a little better and looking better. Still has not done too much therapy. INR is down heparin was started, CBC seems to be stable she might not need any special lines for transfusions but were monitored daily device hemoglobin and hematocrit are stable tomorrow my restart the Coumadin and then after that if stable start disposition plans Current Medications Sig/Tripp Start time Last Medication Dose Route Stop Time Status Admin Acetaminophen 650 MG Q6P PRN 12/19 1700 AC PO Albuterol Sulfate 3 ML TID 12/23 220 AC 12/25 INH 0849 Albuterol Sulfate 2 PUF Q4-6 PRN PRN 12/19 1700 AC INH Amlodipine Besylate 10 MG AT BEDTIME 12/19 2199 AC 12/24 PO 2228 Bisacodyl 5 MG AT BEDTIME 12/19 220 AC 12/24 PO 2225 Budesonide/ 2 PUF BID 12/19 2200 AC 12/25 Formoterol Fumarate INH 1024 Cholecalciferol 1,000 IU DAILY 12/20 1000 AC 12/25 PO 1024 Diltiazem HCl 120 MG DAILY 12/20 1000 AC 12/25 PO 1024 Epoetin J[place] 4,000 UNIT MoWeFr 12/20 1653 AC 12/24 IV 1700 Ferric Sodium 125 MG QWED@1200 12/22 1200 AC 12/22 Gluconate Complex IV 1300 Sodium Chloride 100 ML Furosemide 40 MG 7:30 AM, & 4:30 PM 12/20 0730 AC 12/25 PO 0819 Heparin Sodium 25,000 UNIT Q24H 12/25 1000 AC (Porcine) IV Sodium Chloride 500 ML Hydromorphone HCl 1 MG ONCE ONE 12/25 1315 DC 12/25 IV 12/25 1316 1321 Hydromorphone HCl 2 MG Q4P PRN 12/22 1030 AC 12/25 IV 1009 Iron Sucrose 50 MG ONCE ONE 12/24 1445 CAN Sodium Chloride 100 ML IV 12/24 1459 Lorazepam 2 MG QPM 12/19 2200 AC 12/24 PO 2225 Multivitamins 1 TAB DAILY 12/20 1000 AC 12/25 PO 1024 Oxycodone HCl 15 MG Q6 PRN 12/19 1700 AC 12/25 PO 0819 Paricalcitol 2 MCG MoWeFr 12/20 1653 AC 12/24 IV 1700 Polyethylene Glycol 17 GM DAILY 12/20 1000 AC 12/24 PO 1855 Prednisone 10 MG DAILY 12/20 1000 AC 12/25 PO 1024 Senna 187 MG AT BEDTIME 12/19 2200 AC 12/24 PO 2225 Sertraline HCl 100 MG DAILY 12/20 1000 AC 12/25 PO 1024 Sevelamer HCl 2,400 MG TIDAC 12/19 1700 AC 12/25 PO 1224 Tiotropium [place] 1 PUF DAILY 12/20 1000 AC 12/25 INH 1024 Warfarin Sodium 2.5 MG COUMADIN 1700 ONE 12/25 1700 CAN PO 12/25 1701 Laboratory Tests 12/25/16 0610: Anion Gap 14, Estimated GFR 16 L, BUN/Creatinine Ratio 12.1, Calcium 8.4, Phosphorus 3.8, Magnesium 1.9, PT 19.0 H, INR 1.82 H, CBC w Diff NO MAN DIFF REQ, RBC 3.00 L, MCV 94.2, MCH 30.6, RDW 17.1 H, MPV 8.8, Gran % 86.9 H, Lymphocytes % 5.6 L, Monocytes % 7.2, Eosinophils % 0.2, Basophils % 0.1, Absolute Granulocytes 14.6 H, Absolute Lymphocytes 0.9 L, Absolute Monocytes 1.2 H, Absolute Eosinophils 0, Absolute Basophils 0, PUBS MCHC 32.5 L 12/24/16 1445: Anion Gap 12, Estimated GFR 9 L, BUN/Creatinine Ratio 11.9, Glucose 120 H, CBC w Diff NO MAN DIFF REQ, RBC 2.72 L, MCV 91.7, MCH 30.3, RDW 16.1 H, MPV 8.8, Gran % 84.5 H, Lymphocytes % 5.6 L, Monocytes % 7.8, Eosinophils % 2.0, Basophils % 0.1, Absolute Granulocytes 11.8 H, Absolute Lymphocytes 0.8 L, Absolute Monocytes 1.1 H, Absolute Eosinophils 0.3, Absolute Basophils 0, PUBS MCHC 33.1 12/24/16 0420: Anion Gap 8, Estimated GFR 11 L, BUN/Creatinine Ratio 12.6, Calcium 8.6, Phosphorus 4.7 H, Magnesium 2.0, PT 37.3 H, INR 3.60 H, CBC w Diff NO MAN DIFF REQ, RBC 2.64 L, MCV 92.6, MCH 30.6, RDW 16.7 H, MPV 9.8, Gran % 83.8 H, Lymphocytes % 6.8 L, Monocytes % 8.0, Eosinophils % 1.4, Basophils % 0 L, Absolute Granulocytes 11.1 H, Absolute Lymphocytes 0.9 L, Absolute Monocytes 1.1 H, Absolute Eosinophils 0.2, Absolute Basophils 0, PUBS MCHC 33.1 12/23/161928: Anion Gap 10, Estimated GFR 12 L, Glucose 129 H, Calcium 8.3 L, Phosphorus 4.2, Magnesium 1.9, Total Bilirubin 0.6, AST 35, ALT 43, Albumin 2.5 L, CBC w Diff NO MAN DIFF REQ, RBC 2.66 L, MCV 91.8, MCH 30.4, RDW 16.9 H, MPV 8.6, Gran % 90.8 H, Lymphocytes % 3.1 L, Monocytes % 6.0, Eosinophils % 0.1, Basophils % 0 L, Absolute Granulocytes 12.9 H, Absolute Lymphocytes 0.4 L, Absolute Monocytes 0.9 H, Absolute Eosinophils 0, Absolute Basophils 0, PUBS MCHC 33.1 Vital Signs Date Time Temp Pulse Resp B/P Pulse O2 O2 Flow FiO2 Ox Delivery Rate 12/25 0849 98 Nasal 3.0L Cannula 12/25 0734 98.3 69 18 113/56 99 Nasal 3.0L Cannula 12/25 0012 98.3 70 20 137/64 98 / 0000 Nasal 3.0L Cannula 12/24 2228 76 112/50 12/24 1840 97 Nasal 3.0L Cannula 12/24 1600 97.0 69 18 100/60 12/24 1600 96 Nasal 3.0L Cannula 12/24 1436 Nasal 3.0L Cannula Intake & Output 12/25 1600 12/25 0800 12/25 0000 Intake Total 100 500 Output Total 0 Balance 100 500 Intake, IV 20 Intake, Oral 100 480 Number 0 Bowel Movements Output, Urine 0 Patient 177 lb Weight Her white count is going up but no obvious signs of any infection.
--- NOTE | 2016-12-25 13:59 | PN- Cardiology ---
Subjective Subjective: The patient appears to be doing about the same. She denies any new changes or issues. Her son is concerned about the fact that she has not had any significant physical therapy and she has not really been out of bed in recent days. No other new Changes noted. Objective Vital Signs and I&Os Vital Signs Date Time Temp Pulse Resp B/P Pulse O2 O2 Flow FiO2 Ox Delivery Rate 12/25 0849 98 Nasal 3.0L Cannula 12/25 0734 98.3 69 18 113/56 99 Nasal 3.0L Cannula 12/25 0012 98.3 70 20 137/64 98 12/25 0000 Nasal 3.0L Cannula 12/24 2228 76 112/50 12/24 1840 97 Nasal 3.0L Cannula 12/24 1600 97.0 69 18 100/60 12/24 1600 96 Nasal 3.0L Cannula 12/24 1436 Nasal 3.0L Cannula Intake & Output 12/25 1600 12/25 0800 12/25 0000 12/24 1600 12/24 0800 12/24 0000 Intake Total 100 500 240 240 240 Output Total 0 120 Balance 100 500 120 240 240 Intake, IV 20 Intake, Oral 100 480 240 240 240 Number 0 0 1 Bowel Movements Output, Urine 0 120 Patient 177 lb Weight Physical Exam: General Appearance: Alert, Oriented X3, No Acute Distress HEENT: Mucous Membr. moist/pink Neck: Supple, JVP normal, carotids normal bilaterally Cardiovascular: Regular Rate, Normal S1, Normal S2, normal prosthetic valve sounds, 1 to 2/6 systolic murmur Lungs: Clear to Auscultation and percussion bilaterally Abdomen: Soft, No Tenderness, Positive Bowel Sounds Extremities: No Clubbing, No Cyanosis, No Edema Current Medications: Current Medications Sig/Tripp Start time Last Medication Dose Route Stop Time Status Admin Acetaminophen 650 MG Q6P PRN 12/19 1700 AC PO Albuterol Sulfate 3 ML TID 12/23 2199 AC 12/25 INH 0849 Albuterol Sulfate 2 PUF Q4-6 PRN PRN 12/19 170 AC INH Amlodipine Besylate 10 MG AT BEDTIME 12/19 2199 AC 12/24 PO 2228 Bisacodyl 5 MG AT BEDTIME 12/19 2199 AC 12/24 PO 2225 Budesonide/ 2 PUF BID 12/19 2199 AC 12/25 Formoterol Fumarate INH 1024 Cholecalciferol 1,000 IU DAILY 12/20 1000 AC 12/25 PO 1024 Diltiazem HCl 120 MG DAILY 12/20 1000 AC 12/25 PO 1024 Epoetin [place] 4,000 UNIT MoWeFr 12/20 1653 AC 12/24 IV 1700 Ferric Sodium 125 MG QWED@1200 12/22 1200 AC 12/22 Gluconate Complex IV 1300 Sodium Chloride 100 ML Furosemide 40 MG 7:30 AM, & 4:30 PM 12/20 0730 AC 12/25 PO 0819 Heparin Sodium 25,000 UNIT Q24H 12/25 1000 AC (Porcine) IV Sodium Chloride 500 ML Hydromorphone HCl 1 MG ONCE ONE 12/25 1315 DC 12/25 IV 12/25 1316 1321 Hydromorphone HCl 2 MG Q4P PRN 12/22 1030 AC 12/25 IV 1009 Iron Sucrose 50 MG ONCE ONE 12/24 1445 CAN Sodium Chloride 100 ML IV 12/24 1459 Lorazepam 2 MG QPM 12/19 2200 AC 12/24 PO 2225 Multivitamins 1 TAB DAILY 12/20 1000 AC 12/25 PO 1024 Oxycodone HCl 15 MG Q6 PRN 12/19 1700 AC 12/25 PO 0819 Paricalcitol 2 MCG MoWeFr 12/20 1653 AC 12/24 IV 1700 Polyethylene Glycol 17 GM DAILY 12/20 1000 AC 12/24 PO 1855 Prednisone 10 MG DAILY 12/20 1000 AC 12/25 PO 1024 Senna 187 MG AT BEDTIME 12/19 2200 AC 12/24 PO 2225 Sertraline HCl 100 MG DAILY 12/20 1000 AC 12/25 PO 1024 Sevelamer HCl 2,400 MG TIDAC 12/19 1700 AC 12/25 PO 1224 Tiotropium [place] 1 PUF DAILY 12/20 1000 AC 12/25 INH 1024 Warfarin Sodium 2.5 MG COUMADIN 1700 ONE 12/25 1700 CAN PO 12/25 1701 Results Last 48 Hrs of Labs/Mics: Laboratory Tests 12/25/16 0610: Anion Gap 14, Estimated GFR 16 L, BUN/Creatinine Ratio 12.1, Calcium 8.4, Phosphorus 3.8, Magnesium 1.9, PT 19.0 H, INR 1.82 H, CBC w Diff NO MAN DIFF REQ, RBC 3.00 L, MCV 94.2, MCH 30.6, RDW 17.1 H, MPV 8.8, Gran % 86.9 H, Lymphocytes % 5.6 L, Monocytes % 7.2, Eosinophils % 0.2, Basophils % 0.1, Absolute Granulocytes 14.6 H, Absolute Lymphocytes 0.9 L, Absolute Monocytes 1.2 H, Absolute Eosinophils 0, Absolute Basophils 0, PUBS MCHC 32.5 L 12/24/16 1445: Anion Gap 12, Estimated GFR 9 L, BUN/Creatinine Ratio 11.9, Glucose 120 H, CBC w Diff NO MAN DIFF REQ, RBC 2.72 L, MCV 91.7, MCH 30.3, RDW 16.1 H, MPV 8.8, Gran % 84.5 H, Lymphocytes % 5.6 L, Monocytes % 7.8, Eosinophils % 2.0, Basophils % 0.1, Absolute Granulocytes 11.8 H, Absolute Lymphocytes 0.8 L, Absolute Monocytes 1.1 H, Absolute Eosinophils 0.3, Absolute Basophils 0, PUBS MCHC 33.1 12/24/16 0420: Anion Gap 8, Estimated GFR 11 L, BUN/Creatinine Ratio 12.6, Calcium 8.6, Phosphorus 4.7 H, Magnesium 2.0, PT 37.3 H, INR 3.60 H, CBC w Diff NO MAN DIFF REQ, RBC 2.64 L, MCV 92.6, MCH 30.6, RDW 16.7 H, MPV 9.8, Gran % 83.8 H, Lymphocytes % 6.8 L, Monocytes % 8.0, Eosinophils % 1.4, Basophils % 0 L, Absolute Granulocytes 11.1 H, Absolute Lymphocytes 0.9 L, Absolute Monocytes 1.1 H, Absolute Eosinophils 0.2, Absolute Basophils 0, PUBS MCHC 33.1 12/23/16 1929: Anion Gap 10, Estimated GFR 12 L, Glucose 129 H, Calcium 8.3 L, Phosphorus 4.2, Magnesium 1.9, Total Bilirubin 0.6, AST 35, ALT 43, Albumin 2.5 L, CBC w Diff NO MAN DIFF REQ, RBC 2.66 L, MCV 91.8, MCH 30.4, RDW 16.9 H, MPV 8.6, Gran % 90.8 H, Lymphocytes % 3.1 L, Monocytes % 6.0, Eosinophils % 0.1, Basophils % 0 L, Absolute Granulocytes 12.9 H, Absolute Lymphocytes 0.4 L, Absolute Monocytes 0.9 H, Absolute Eosinophils 0, Absolute Basophils 0, PUBS MCHC 33.1 Assessment/Plan Assessment/Plan Assessment: 1. Day #6 status post hip surgery, by surgical site hematoma requiring transfusions during anticoagulation bridging 2. History of rheumatic heart disease, status post mechanical mitral valve replacement 3. Chronic atrial fibrillation, status post AV node ablation with biventricular pacemaker implanted 4. History of remote TIA 5. Coagulopathy with supratherapeutic INR and associated anemia 6. End-stage renal disease on hemodialysis Recommendations: -The patient's hemoglobin and hematocrit appear to remain stable. -The patient's INR today is 1.8. In view of the mechanical mitral prosthesis, the patient should be started on IV heparin to maintain anticoagulation. -Continue to monitor hemoglobin and hematocrit -If the patient remains stable in 24 hours with no other new issues, the patient can probably come off of telemetry at that point. -Continue other medications for now. Continue telemetry? Yes
[2016-12-25 16:10] VITALS: BP 109/60
[2016-12-25 19:42] LABS: PTT 35 SEC (25-37)
[2016-12-25 22:37] VITALS: BP 106/60
--- NOTE | 2016-12-25 23:29 | NUR ---
PT HAD 5 BEAT RUN OF [facility]. ASYMPTOMATIC. RESIDENT ESVIN MORAN.
[2016-12-26 03:38] LABS: PTT > 120 SEC (25-37)
[2016-12-26 07:50] VITALS: BP 104/56
[2016-12-26 08:06] LABS: ABSOLUTE BASOPHIL COUNT 0 /CUMM (0.0-0.2); ABSOLUTE EOSINOPHIL COUNT 0.2 /CUMM (0.0-0.7); ABSOLUTE LYMPH COUNT 1.1 /CUMM (1.2-3.4); ABSOLUTE MONOCYTE COUNT 1.4 /CUMM (0.10-0.60); BASOPHIL % 0 % (0.0-2.0); GRANULOCYTE % 86.1 % (42.2-75.2); MEAN CORPUSCULAR HGB 30.3 PG (27.0-31.0); MEAN CORPUSCULAR HGB CONC 32.3 G/DL (33.0-37.0); PLATELET COUNT 276 /CUMM (130-400); RBC DISTRIBUTION WIDTH 16.8 % (11.5-14.5); RED BLOOD CELL CT 2.43 /CUMM (4.20-5.40)
[2016-12-26 08:21] LABS: PT 21.4 SEC (9.4-12.5)
--- NOTE | 2016-12-26 08:33 | PN- Housestaff ---
Subjective Follow-up For: Surgical hematoma with active drainage Complaints: pain scale (0-10) (8) Subjective: Patient reporting increase in pain at the left area. Had trouble sleeping due to pain. She has active discharge from hip area. She has no fevers, chills, dizziness, chest pain, increase in heart rate, N/V, or loss ability to use her leg. Review of Systems Constitutional: Reports: see HPI. Objective Last 24 Hrs of Vital Signs/I&O Vital Signs Date Time Temp Pulse Resp B/P Pulse O2 O2 Flow FiO2 Ox Delivery Rate 12/26 0804 97 Nasal 3.0L Cannula 12/26 0750 97.7 69 20 104/56 100 Nasal Cannula 12/26 0000 Nasal 3.0L Cannula 12/25 2237 97.4 68 20 106/60 99 Nasal Cannula 12/25 2202 77 134/64 12/25 1918 99 Nasal 3.0L Cannula 12/25 1610 97.8 71 20 109/60 90 Nasal 3.0L Cannula 12/25 1600 Nasal 3.0L Cannula Intake & Output 12/26 1600 12/26 0800 12/26 0000 Intake Total 310 830 Output Total 101 Balance 310 729 Intake, IV 210 230 Intake, Oral 100 600 Number 1 Bowel Movements Output, Other 1 Output, Urine 100 Patient 182 lb Weight Physical Exam General Appearance: Alert, Oriented X3, Cooperative, Mild Distress Skin: Surgical area covered in gauge pad along the lateral hip on left. Active drainage noted. HEENT: Atraumatic, PERRLA, EOMI, Mucous Membr. moist/pink Cardiovascular: Regular Rate, Normal S1, Normal S2, No Murmurs Lungs: Clear to Auscultation Abdomen: Normal Bowel Sounds, Soft Neurological: Sensation to touch is equal on LE B/L. Patient is able to move digits of LE. Extremities: No Clubbing, No Cyanosis, No Edema Current Medications: Current Medications Sig/Tripp Start time Last Medication Dose Route Stop Time Status Admin Acetaminophen 650 MG Q6P PRN 12/19 1700 AC PO Albuterol Sulfate 3 ML TID 12/23 2199 AC 12/26 INH 0802 Albuterol Sulfate 2 PUF Q4-6 PRN PRN 12/19 170 AC INH Amlodipine Besylate 10 MG AT BEDTIME 12/19 2199 AC / PO 2201 Bisacodyl 5 MG AT BEDTIME 12/190 AC 12/25 PO 2200 Budesonide/ 2 PUF BID 12/19 2200 AC 12/25 Formoterol Fumarate INH 2200 Cholecalciferol 1,000 IU DAILY 12/20 1000 AC 12/25 PO 1024 Diltiazem HCl 120 MG DAILY 12/20 1000 AC 12/25 PO 1024 Epoetin [place] 4,000 UNIT MoWeFr 12/20 1653 AC 12/24 IV 1700 Ferric Sodium 125 MG QWED@1200 12/22 1200 AC 12/22 Gluconate Complex IV 1300 Sodium Chloride 100 ML Furosemide 40 MG 7:30 AM, & 4:30 PM 12/20 0730 AC 12/26 PO 0828 Heparin Sodium 10,000 UNIT .STK-MED ONE 12/26 0007 DC (Porcine) IV 12/26 0008 Heparin Sodium 6,000 UNIT BOLUS ONE 12/25 2100 DC 12/26 (Porcine) IV 12/25 2101 0013 Heparin Sodium 25,000 UNIT Q24H 12/25 1000 AC 12/25 (Porcine) IV 1320 Sodium Chloride 500 ML Hydromorphone HCl 1 MG ONCE ONE 12/25 1315 DC / IV / 1316 1321 Hydromorphone HCl 2 MG Q4P PRN 12/22 1030 AC 12/26 IV 0609 Lorazepam 2 MG QPM 12/19 2200 AC 12/25 PO 2200 Melatonin 5 MG AT BEDTIME 12/26 220 DC PO Melatonin 5 MG AT BEDTIME 12/26 0215 AC 12/26 PO 0216 Multivitamins 1 TAB DAILY 12/20 1000 AC 12/25 PO 1024 Oxycodone HCl 15 MG Q6 PRN 12/19 1700 AC 12/26 PO 0420 Paricalcitol 2 MCG MoWeFr 12/20 1653 AC 12/24 IV 1700 Polyethylene Glycol 17 GM DAILY 12/20 1000 AC 12/24 PO 1855 Prednisone 10 MG DAILY 12/20 1000 AC 12/25 PO 1024 Senna 187 MG AT BEDTIME 12/19 2200 AC 12/25 PO 2200 Sertraline HCl 100 MG DAILY 12/20 1000 AC 12/25 PO 1024 Sevelamer HCl 2,400 MG TIDAC 12/19 1700 AC 12/26 PO 0829 Tiotropium [place] 1 PUF DAILY 12/20 1000 AC 12/25 INH 1024 Warfarin Sodium 2.5 MG COUMADIN 1700 ONE 12/25 1700 CAN PO 12/25 1701 Last 24 Hrs of Lab/Thien Results Last 24 Hrs of Labs/Mics: Laboratory Tests 12/26/16 0710: Anion Gap 9, Estimated GFR 11 L, BUN/Creatinine Ratio 12.4, PT 21.4 H, INR 2.05 H, CBC w Diff Pending, WBC Pending, RBC Pending, Hgb Pending, Hct Pending, MCV Pending, MCH Pending, RDW Pending, Plt Count Pending, MPV Pending, PUBS MCHC Pending 12/26/16 0212: APTT > 120 *H 12/25/16 1904: APTT 35 Assessment/Plan Assessment: 66 y/o F with PMHx of ESRD on HD and atrial fibrillation on warfarin, mitral stenosis s/p mechanical valve replacement who is admitted for L hip intertrochanteric failure 2/2 mechanical fall, now POD #5 s/p L hip IMHS, complicated by ABLA 2/2 hematoma at the surgical site while on bridging anticoagulation. #Supratherapeutic INR (resolved): - INR goal is 2.5-3.5 given mechanical mitral valve. * Cardiology following. Appreciate their recs. * IV heparin for anticoagulation on 12/25. * H/H stable for several days while on heparin drip. Patient can safely resume warafrin from medical point of view. Will followup with orthopedic team to see if they agree after placement of pro-line as INR is between 2-2.5. #ABLA: Significant drop in H/H POD #2 s/p L hip IMHS while on bridging anticoagulation secondary to a postoperative hematoma. S/p 3 units of pRBCs. H/H stable at 9.2 with last PRBC on December 22. * Continue to monitor H/H and transfuse as needed to keep Hgb > 8. # L hip intertrochanteric fracture: POD #6 s/p L hip IMHS. * Management per orthopedic surgery team. # ESRD: Secondary to presumed hypertensive nephrosclerosis. - noted improvement in cr from 4.8 to 2.9 on 12/25. * Nephrology following. Appreciate their recs. * Continue Epogen 4000 units IV and Zemplar 2 mcg IV three times per week with HD. * Continue Nephrocaps tab PO daily and Sevelamer 2400 mg PO TIDAC. Diet: Renal Dialysis Diet DVT PPx: ALPs CODE: DNR/DNI Problem List: 1. Hematoma of left hip 2. H/O mitral valve replacement with mechanical valve Pain Ratin Pain Location: Left Hip Pain Goal: Pain 4 or less Pain Plan: Pain Pathway Tomorrow's Labs & Rationales: INR H/H for possible transfusion
[2016-12-26 09:38] LABS: HEMATOCRIT 22.9 % (37-47)
[2016-12-26 09:42] LABS: WHITE BLOOD CELL COUNT 19.7 /CUMM (4.8-10.8)
[2016-12-26 11:45] LABS: PTT 58 SEC (25-37)
--- NOTE | 2016-12-26 12:03 | PN- Att Addend ---
Attending Addendum Attending Brief Note Patient in bed in no acute distress still in some pain. Vital signs are stable she's a febrile but has some oozing from surgical site still has her hematoma . Her last hemoglobin was 7.4 hematocrit 22.9 being typed and screened for another transfusion. Her INR is 2.05. To continue treatment and PT, follow-up labs. When stable start disposition plans for short-term rehabilitation. Current Medications Sig/Tripp Start time Last Medication Dose Route Stop Time Status Admin Acetaminophen 650 MG Q6P PRN 12/19 1700 AC PO Albuterol Sulfate 3 ML TID 12/23 220 AC 12/26 INH 0802 Albuterol Sulfate 2 PUF Q4-6 PRN PRN 12/19 1700 AC INH Amlodipine Besylate 10 MG AT BEDTIME 12/19 2199 AC 12/25 PO 2202 Bisacodyl 5 MG AT BEDTIME 12/19 2199 AC 12/25 PO 2200 Budesonide/ 2 PUF BID 12/19 220 AC 12/26 Formoterol Fumarate INH 1116 Cholecalciferol 1,000 IU DAILY 12/20 1000 AC 12/26 PO 1115 Diltiazem HCl 120 MG DAILY 12/20 1000 AC 12/26 PO 1115 Epoetin [place] 4,000 UNIT MoWeFr 12/20 1653 AC 12/24 IV 1700 Ferric Sodium 125 MG QWED@1200 12/22 1200 AC 12/22 Gluconate Complex IV 1300 Sodium Chloride 100 ML Furosemide 40 MG 7:30 AM, & 4:30 PM 12/20 0730 AC 12/26 PO 0828 Heparin Sodium 10,000 UNIT .STK-MED ONE 12/26 0007 DC (Porcine) IV 12/26 0008 Heparin Sodium 6,000 UNIT BOLUS ONE 12/25 2100 DC 12/26 (Porcine) IV 12/25 2101 0013 Heparin Sodium 25,000 UNIT Q24H 12/25 1000 AC 12/26 (Porcine) IV 1117 Sodium Chloride 500 ML Hydromorphone HCl 1 MG ONCE ONE 12/25 1315 DC 12/25 IV 12/25 1316 1321 Hydromorphone HCl 2 MG Q4P PRN 12/22 1030 AC 12/26 IV 1110 Lorazepam 2 MG QPM 12/19 2200 AC 03/ PO 2200 Melatonin 5 MG AT BEDTIME 12/26 2200 DC PO Melatonin 5 MG AT BEDTIME 12/26 0215 AC 12/26 PO 0216 Multivitamins 1 TAB DAILY 12/20 1000 AC 12/26 PO 1115 Oxycodone HCl 15 MG ONCE ONE 12/26 0945 DC PO 12/26 0946 Oxycodone HCl 15 MG Q6 PRN 12/19 1700 AC 12/26 PO 0420 Paricalcitol 2 MCG MoWeFr 12/20 1653 AC 12/24 IV 1700 Polyethylene Glycol 17 GM DAILY 12/20 1000 AC 12/24 PO 1855 Prednisone 10 MG DAILY 12/20 1000 AC 12/26 PO 1115 Senna 187 MG AT BEDTIME 12/19 2200 AC 12/25 PO 2200 Sertraline HCl 100 MG DAILY 12/20 1000 AC 12/26 PO 1115 Sevelamer HCl 2,400 MG TIDAC 12/19 1700 AC 12/26 PO 0829 Tiotropium [place] 1 PUF DAILY 12/20 1000 AC 12/26 INH 1115 Laboratory Tests 12/26/16 1125: APTT Pending 12/26/16 0710: Anion Gap 9, Estimated GFR 11 L, BUN/Creatinine Ratio 12.4, PT 21.4 H, INR 2.05 H, CBC w Diff NO MAN DIFF REQ, RBC 2.43 L, MCV 94.0, MCH 30.3, RDW 16.8 H, MPV 9.0, Gran % 86.1 H, Lymphocytes % 5.7 L, Monocytes % 7.2, Eosinophils % 1.0, Basophils % 0 L, Absolute Granulocytes 17.0 H, Absolute Lymphocytes 1.1 L, Absolute Monocytes 1.4 H, Absolute Eosinophils 0.2, Absolute Basophils 0, PUBS MCHC 32.3 L 12/26/16 0212: APTT > 120 *H 12/25/16 1904: APTT 35 12/25/16 0610: Anion Gap 14, Estimated GFR 16 L, BUN/Creatinine Ratio 12.1, Calcium 8.4, Phosphorus 3.8, Magnesium 1.9, PT 19.0 H, INR 1.82 H, CBC w Diff NO MAN DIFF REQ, RBC 3.00 L, MCV 94.2, MCH 30.6, RDW 17.1 H, MPV 8.8, Gran % 86.9 H, Lymphocytes % 5.6 L, Monocytes % 7.2, Eosinophils % 0.2, Basophils % 0.1, Absolute Granulocytes 14.6 H, Absolute Lymphocytes 0.9 L, Absolute Monocytes 1.2 H, Absolute Eosinophils 0, Absolute Basophils 0, PUBS MCHC 32.5 L 12/24/16 1445: Anion Gap 12, Estimated GFR 9 L, BUN/Creatinine Ratio 11.9, Glucose 120 H, CBC w Diff NO MAN DIFF REQ, RBC 2.72 L, MCV 91.7, MCH 30.3, RDW 16.1 H, MPV 8.8, Gran % 84.5 H, Lymphocytes % 5.6 L, Monocytes % 7.8, Eosinophils % 2.0, Basophils % 0.1, Absolute Granulocytes 11.8 H, Absolute Lymphocytes 0.8 L, Absolute Monocytes 1.1 H, Absolute Eosinophils 0.3, Absolute Basophils 0, PUBS MCHC 33.1 Vital Signs Date Time Temp Pulse Resp B/P Pulse O2 O2 Flow FiO2 Ox Delivery Rate 12/26 0804 97 Nasal 3.0L Cannula 12/26 0750 97.7 69 20 104/56 100 Nasal Cannula 12/26 0000 Nasal 3.0L Cannula 12/25 2237 97.4 68 20 106/60 99 Nasal Cannula 12/25 2202 77 134/64 / 1918 99 Nasal 3.0L Cannula 12/25 1610 97.8 71 20 109/60 90 Nasal 3.0L Cannula 12/25 1600 Nasal 3.0L Cannula Intake & Output 12/26 1600 12/26 0800 12/26 0000 Intake Total 310 830 Output Total 101 Balance 310 729 Intake, IV 210 230 Intake, Oral 100 600 Number 1 Bowel Movements Output, Other 1 Output, Urine 100 Patient 182 lb Weight
--- NOTE | 2016-12-26 14:03 | PN- Cardiology ---
Subjective Subjective: The patient seems to be doing okay today. Her cardiac status appears unchanged. I had a long discussion with the nurses. The nurses note that at the surgical site there is persistent drainage of sanguinous discharge with significant swelling. The patient's hemoglobin continues to drop slowly and she is getting another transfusion today.. Nurses also note the presence of mucousy rectal discharge which also was blood tinged. They raised the question of whether there may be some GI bleeding as well. Objective Vital Signs and I&Os Vital Signs Date Time Temp Pulse Resp B/P Pulse O2 O2 Flow FiO2 Ox Delivery Rate 12/26 08 97 Nasal 3.0L Cannula 12/26 08 Nasal 3.0L Cannula 12/26 0750 97.7 69 20 104/56 100 Nasal Cannula 12/26 0000 Nasal 3.0L Cannula 12/25 2237 97.4 68 20 106/60 99 Nasal Cannula 12/25 2202 77 134/64 12/25 1918 99 Nasal 3.0L Cannula 12/25 1610 97.8 71 20 109/60 90 Nasal 3.0L Cannula 12/25 1600 Nasal 3.0L Cannula Intake & Output 12/26 1600 12/26 0812/26 0000 12/25 1600 12/25 0800 12/25 0000 Intake Total 310 830 720 100 500 Output Total 101 600 0 Balance 310 729 120 100 500 Intake, IV 210 230 20 Intake, Oral 100 600 720 100 480 Number 1 1 0 Bowel Movements Output, Other 1 Output, Urine 100 600 0 Patient 182 lb 177 lb Weight Current Medications: Current Medications Sig/Tripp Start time Last Medication Dose Route Stop Time Status Admin Acetaminophen 650 MG Q6P PRN 12/19 1699 AC PO Albuterol Sulfate 3 ML TID 12/23 2199 AC 12/26 INH 0802 Albuterol Sulfate 2 PUF Q4-6 PRN PRN 12/19 170 AC INH Amlodipine Besylate 10 MG AT BEDTIME 12/19 2199 AC 12/25 PO 2201 Bisacodyl 5 MG AT BEDTIME 12/19 2199 AC 12/25 PO 220 Budesonide/ 2 PUF BID 12/19 2199 AC 12/26 Formoterol Fumarate INH 111 Cholecalciferol 1,000 IU DAILY 12/20 999 AC 12/26 PO 111 Diltiazem HCl 120 MG DAILY 12/20 1000 AC 12/26 PO 1115 Epoetin Jerson 4,000 UNIT MoWeFr 12/20 1653 AC 12/24 IV 1700 Ferric Sodium 125 MG QWED@1200 12/22 1200 AC 12/22 Gluconate Complex IV 1300 Sodium Chloride 100 ML Furosemide 40 MG 7:30 AM, & 4:30 PM 12/20 0730 AC 12/26 PO 0828 Heparin Sodium 10,000 UNIT .STK-MED ONE 12/26 0007 DC (Porcine) IV 12/26 0008 Heparin Sodium 6,000 UNIT BOLUS ONE 12/25 2100 DC 12/26 (Porcine) IV 12/25 210 0013 Heparin Sodium 25,000 UNIT Q24H 12/25 1000 AC 12/26 (Porcine) IV 1117 Sodium Chloride 500 ML Hydromorphone HCl 2 MG Q4P PRN 12/22 1030 AC 12/26 IV 1110 Lorazepam 2 MG QPM 12/19 220 AC 12/25 PO 2200 Melatonin 5 MG AT BEDTIME 12/26 220 DC PO Melatonin 5 MG AT BEDTIME 12/26 0215 AC 12/26 PO 0216 Multivitamins 1 TAB DAILY 12/20 1000 AC 12/26 PO 1115 Oxycodone HCl 15 MG ONCE ONE 12/26 0945 DC PO 12/26 0946 Oxycodone HCl 15 MG Q6 PRN 12/19 1700 AC 12/26 PO 1331 Paricalcitol 2 MCG MoWeFr 12/20 165 AC 12/24 IV 1700 Polyethylene Glycol 17 GM DAILY 12/20 1000 AC 12/24 PO 1855 Prednisone 10 MG DAILY 12/20 1000 AC 12/26 PO 1115 Senna 187 MG AT BEDTIME 12/19 220 AC 12/25 PO 2200 Sertraline HCl 100 MG DAILY 12/20 1000 AC 12/26 PO 1115 Sevelamer HCl 2,400 MG TIDAC 12/19 1700 AC 12/26 PO 1215 Tiotropium [place] 1 PUF DAILY 12/20 1000 AC 12/26 INH 1115 Results Last 48 Hrs of Labs/Mics: Laboratory Tests 12/26/16 1125: APTT 58 H 12/26/16 0710: Anion Gap 9, Estimated GFR 11 L, BUN/Creatinine Ratio 12.4, PT 21.4 H, INR 2.05 H, CBC w Diff NO MAN DIFF REQ, RBC 2.43 L, MCV 94.0, MCH 30.3, RDW 16.8 H, MPV 9.0, Gran % 86.1 H, Lymphocytes % 5.7 L, Monocytes % 7.2, Eosinophils % 1.0, Basophils % 0 L, Absolute Granulocytes 17.0 H, Absolute Lymphocytes 1.1 L, Absolute Monocytes 1.4 H, Absolute Eosinophils 0.2, Absolute Basophils 0, PUBS MCHC 32.3 L 12/26/16 0212: APTT > 120 *H 12/25/16 1904: APTT 35 12/25/16 0610: Anion Gap 14, Estimated GFR 16 L, BUN/Creatinine Ratio 12.1, Calcium 8.4, Phosphorus 3.8, Magnesium 1.9, PT 19.0 H, INR 1.82 H, CBC w Diff NO MAN DIFF REQ, RBC 3.00 L, MCV 94.2, MCH 30.6, RDW 17.1 H, MPV 8.8, Gran % 86.9 H, Lymphocytes % 5.6 L, Monocytes % 7.2, Eosinophils % 0.2, Basophils % 0.1, Absolute Granulocytes 14.6 H, Absolute Lymphocytes 0.9 L, Absolute Monocytes 1.2 H, Absolute Eosinophils 0, Absolute Basophils 0, PUBS MCHC 32.5 L 12/24/16 1445: Anion Gap 12, Estimated GFR 9 L, BUN/Creatinine Ratio 11.9, Glucose 120 H, CBC w Diff NO MAN DIFF REQ, RBC 2.72 L, MCV 91.7, MCH 30.3, RDW 16.1 H, MPV 8.8, Gran % 84.5 H, Lymphocytes % 5.6 L, Monocytes % 7.8, Eosinophils % 2.0, Basophils % 0.1, Absolute Granulocytes 11.8 H, Absolute Lymphocytes 0.8 L, Absolute Monocytes 1.1 H, Absolute Eosinophils 0.3, Absolute Basophils 0, PUBS MCHC 33.1 Assessment/Plan Assessment/Plan Assessment: 1. Day # 7 status post hip surgery, by surgical site hematoma requiring transfusions during anticoagulation bridging 2. History of rheumatic heart disease, status post mechanical mitral valve replacement 3. Chronic atrial fibrillation, status post AV node ablation with biventricular pacemaker implanted 4. History of remote TIA 5. Coagulopathy with supratherapeutic INR and associated anemia 6. End-stage renal disease on hemodialysis Recommendations: -The patient's hemoglobin and hematocrit decreased again to 7.4/22.9 and she is pending transfusion today. -The patient's INR today is 2.05. In view of the mechanical mitral prosthesis, the patient has been started on IV heparin to maintain anticoagulation. -Continue to monitor hemoglobin and hematocrit closely -If the patient remains stable in 24 hours with no other new issues, the patient can probably come off of telemetry at that point. -In view of the bloody mucous rectal discharge, consider checking for C. difficile -Await surgical input with respect to reported worsening swelling at the surgical site with continued bloody drainage -Await follow-up hemoglobin/hematocrit post transfusion before any further decisions. -Continue other medications for now. Continue telemetry? No
--- NOTE | 2016-12-26 14:27 | PN- Orthopedic ---
See Addendum Subjective Subjective: called to re-evaluate LLE wound which has been oozing and requiring dressing changes today, also pt needs a transfusion as hct has dropped to 22.9 down from 28.3 yesterday - does not seem to be dilutional as far as I/O. Objective Vital Signs and I&Os Vital Signs Date Time Temp Pulse Resp B/P Pulse O2 O2 Flow FiO2 Ox Delivery Rate 12/26 08 97 Nasal 3.0L Cannula 12/26 08 Nasal 3.0L Cannula 12/26 0750 97.7 69 20 104/56 100 Nasal Cannula 12/26 0000 Nasal 3.0L Cannula 12/25 2237 97.4 68 20 106/60 99 Nasal Cannula 12/25 2202 77 134/64 12/25 1918 99 Nasal 3.0L Cannula 12/25 1610 97.8 71 20 109/60 90 Nasal 3.0L Cannula 12/25 1600 Nasal 3.0L Cannula Intake & Output 12/26 0812/26 0000 12/25 1600 12/25 0812/25 0000 Intake Total 310 830 720 100 500 Output Total 101 600 0 Balance 310 729 120 100 500 Intake, IV 210 230 20 Intake, Oral 100 600 720 100 480 Number 1 1 0 Bowel Movements Output, Other 1 Output, Urine 100 600 0 Patient 182 lb 177 lb Weight Physical Exam: LLE swollen from groin to knee, soft, tender only along surgical area, Calf is nontender, palpable 1+ DP Bruising around upper LLE wound Lower wounds without any surrounding discoloration Dressings saturated with lightly blood tinged serous fluid - no catherine blood Active oozing of clear, lightly blood tinged, serous fluid from three incision sites [place] intact No purulent drainage Assessment/Plan Assessment/Plan 66 yo female s/p LLE IMHS pod 7 Swollen LLE, does not appear to be actively bleeding as drainage is serous No compartment syndrome concerns at this time Good palpable pulses d/w Dr Almodovar - anticoagulation risk/benefit ratio - per medical team/ cardiology Medical team transfusing 1 u prbc right now follow up serial hcts Will make Dr Vick aware
--- NOTE | 2016-12-26 15:33 | NUR ---
LATE ENTRY NOTE: ON 12/25/16 AROUND HS MED PASS, NOTICED HARD, STOOL MIXED WITH [place]ABEL[place] RED BLOOD. NOTIFIED PHOTOENGRAVING ETCHER PRABHA. PER HIS INSTRUCTIONS, CONTINUE TO MONITOR PT. NO NEW ORDERS. DURING THIS RN'S TIME, NO OTHER EPISODES OF RECTAL BLEEDING NOTICED.
[2016-12-26 16:15] VITALS: BP 130/64
[2016-12-26 19:37] LABS: ABSOLUTE BASOPHIL COUNT 0 /CUMM (0.0-0.2); ABSOLUTE EOSINOPHIL COUNT 0.1 /CUMM (0.0-0.7); ABSOLUTE GRANULOCYTE CT 17.1 /CUMM (1.4-6.5); ABSOLUTE LYMPH COUNT 0.7 /CUMM (1.2-3.4); ABSOLUTE MONOCYTE COUNT 0.7 /CUMM (0.10-0.60); BASOPHIL % 0.1 % (0.0-2.0); EOSINOPHIL % 0.3 % (0-5); HEMATOCRIT 23.6 % (37-47); MEAN CORPUSCULAR HGB 30.6 PG (27.0-31.0); MEAN CORPUSCULAR HGB CONC 32.9 G/DL (33.0-37.0); MEAN CORPUSCULAR VOLUME 93.1 FL (81.0-99.0); MEAN PLATELET VOLUME 8.8 FL (7.4-10.4); PLATELET COUNT 261 /CUMM (130-400); RBC DISTRIBUTION WIDTH 16.1 % (11.5-14.5); RED BLOOD CELL CT 2.54 /CUMM (4.20-5.40); WHITE BLOOD CELL COUNT 18.6 /CUMM (4.8-10.8)
[2016-12-26 19:46] LABS: PTT 63 SEC (25-37)
--- NOTE | 2016-12-26 21:07 | Cons- Gastroenterology ---
General Information and HPI Consulting Request Date of Consult: 12/26/16 Requested By: YAIR SARHA MD Reason for Consult: Called this p.m. to assess multifactorial anemia & scant BRBPR post defecation, HD# 10 Source of Information: patient, old records Exam Limitations: fair historian History of Present Illness: 66 y/o female, with numerous co-morbidities, including HTN, ESRD on HD (M, W, F) , RHD, atrial fibrillation, previously on warfarin, mitral stenosis s/p prosthetic [facility] mitral valve replacement 02/1996, ex-smoker, COPD on 3L home O2, history ? 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 The patient was seen by the orthopedic surgery team who decided to take her to the OR following cardiac clearance, given her extensive cardiac history. Cardiology felt that given her mechanical mitral valve, the patient was at a high risk for thromboembolic events if her anticoagulation was to be discontinued, and suggested letting INR drift from 4.29 on admission, starting IV heparin drip once INR dropped to < 2 and continuing the drip up until 4-6 hours prior to surgery. INR was reversed according to cardiology recommendations and patient was taken to the OR for L hip IMHS on day 3 of admission (12/19/16). IV heparin drip was continued on the evening of surgery with plan to transition to warfarin, and the patient received 3 mg of warfarin 12/20/2016, POD #1 s/p L hip IMHS. *12/21/2016: H/H dropped to 5.9/18.1 from 9.1/28.6 the day before, with *12/21/2016: CT Abdomen/ Pelvis w/o contrast revealing a large hematoma at the L gluteal, hip and proximal L thigh region. She has been transfused multiple times during dialysis but had an episode of hypotension during dialysis, prompting her to be transferred to the ICU for close hemodynamic monitoring. She was ultimately transferred to telemetry. Coumadin was held in view of the large left gluteal/ hip/proximal thigh hematoma, and she was carefully continued on IV heparin, as she is high risk for CVA, with [facility] metallic MVR and underlying atrial fibrillation. She is not on aspirin or NSAIDs. The patient had scant rectal bleeding after defecation on 12/25/2016, apparently prompting the GI consult, despite numerous other issues for her anemia, including the large hematoma & CKD. She is also on EPO. According to the patient 's RN, her left hip dressing was previously saturated with blood. The patient has had an extensive GI workup in the past: 02/13/2003: EGD/colonoscopy to TI per Dr. Ng- random duodenal biopsy normal villi; nonspecific colitis on random biopsies with borderline collagenous colitis. No active upper or lower GI bleeding. 08/20/2014: EGD/colonoscopy per Dr. Gudino- gastroparesis; fair prep to cecum, without active upper or lower GI bleeding. 05/21/2015: PillCam- negative except benign lymphangiectasia. Dr. Gudino last with the patient in inpatient GI consultation 10/27/2015 for OB positive stool, without any melena, rectal bleeding, or hematemesis, and in view of the above workup, a conservative approach was advised. The patient currently denies any GI symptoms whatsoever. *There has been no rectal bleeding today on 12/26/2016 & my digital rectal exam of 12/26/2016 showed brown OB negative stool. There was no spontaneous lower GI bleeding. She denied any melena, diarrhea, constipation, obstipation, tenesmus, change in stool caliber, abdominal pain, nausea, vomiting, reflux, hematemesis, or early satiety, despite the history of gastroparesis. She is tolerating a 2g Na+ renal diet. She has baseline SOB from COPD. There is no chest pain. There is no family history of GI disease, GI malignancy, or inherited liver disease. 12/17/2016: XRY-HIP 2-3 VIEWS, LEFT; XRY-KNEE COMPLETE LEFT- 1. Left hip: Mildly displaced intertrochanteric fracture of the left femur. 2. Left knee: No acute findings. 12/17/2016: XRY-CHEST XRAY, ONE VIEW ONLY- No acute cardiopulmonary findings. Left-sided pacemaker lead. 12/19/2016: XRY-HIP 2-3 VIEWS, LEFT- Fluoroscopic assistance and successful placement of Gamma Nail at the site of left hip fracture. Full procedural details will be dictated by Dr. Vick. 12/21/2016: CT ABDOMEN AND PELVIS WITHOUT CONTRAST- 1. *Abnormal CT scan of the abdomen and pelvis showing presence of a large hematoma at the left gluteal, hip and proximal left thigh region with intact hardware at left proximal visualized femur. Small amount of fluid is also noted within the presacral space. 2. No other significant interval change since 04/19/2016. 12/22/2016: XR PORTABLE CHEST- Cardiomegaly without acute process. Stable pacer electrodes. 12/22/2016: EKG- paced rhythm at 70. Allergies/Medications Allergies: Coded Allergies: NO KNOWN ALLERGIES (11/26/16) Home Med List: Albuterol Sulfate (Proair Hfa) 90 MCG HFA.AER.AD 2 PUF INH Q4-6 PRN PRN COPD (Reported) Amlodipine Besylate 10 MG TABLET 1 TAB PO DAILY HTN (Reported) Budesonide/Formoterol Fumarate (Symbicort 160-4.5 Mcg Inhaler) 160 MCG-4.5 MCG/ ACTUATION HFA.AER.AD 2 PUF INH BID COPD (Reported) Cholecalciferol (Vitamin D3) (Vitamin D3) 1,000 UNIT CAPSULE 1 CAP PO DAILY NUTRIENT (Reported) Diltiazem HCl (Diltiazem 24HR ER) 120 MG CAP.ER.24H 1 CAP PO DAILY AFIB ( Reported) Epoetin Jerson (Procrit) 20,000 U/ML ML 7,000 U IV Tuesday PRN WITH DIALYSIS Furosemide 40 MG TABLET 1 TAB PO BID FLUID IN LEGS (Reported) Lorazepam (Ativan) 2 MG TABLET 1 TAB PO QPM PRN ANXIETY (Reported) OXYCODONE HCL (Oxycodone HCl) 15 MG TABLET 1 TAB PO Q4H PAIN (Reported) Prednisone 10 MG TABLET 1 TAB PO DIRECTED COPD TAKE 3 TABLETS FOR 2 DAYS (12/01-12/02) TAKE 2 TABLETS FOR 2 DAYS (12/03-12/04) TAKE 1 TABLET FOR 2 DAYS (12/05--) Sertraline HCl (Zoloft) 100 MG TABLET 1 TAB PO DAILY MENTAL HEALTH (Reported) Sevelamer Carbonate (Renvela) 800 MG TABLET 2 TAB PO TID KIDNEY FUNCTION ( Reported) Sevelamer Carbonate (Renvela) 800 MG TABLET 1 TAB PO TID WM PHOSPHORUS BINDER (Reported) TAKE WITH MEALS Tiotropium Austin (Spiriva) 18 MCG CAP.W.DEV 1 CAP INH DAILY COPD (Reported) Warfarin Sodium (Coumadin) 5 MG TABLET 0.5 TAB PO DAILY BLOOD THINNER ( Reported) Current Medications: Current Medications Sig/Tripp Start time Last Medication Dose Route Stop Time Status Admin Acetaminophen 650 MG Q6P PRN 12/19 1700 AC PO Albuterol Sulfate 3 ML TID 12/23 2199 AC 12/26 INH 2038 Albuterol Sulfate 2 PUF Q4-6 PRN PRN 12/19 170 AC INH Amlodipine Besylate 10 MG AT BEDTIME 12/19 2199 AC 12/26 PO 2126 Bisacodyl 5 MG AT BEDTIME 12/19 2199 AC 12/26 PO 212 Budesonide/ 2 PUF BID 12/19 220 AC 12/26 Formoterol Fumarate INH 2125 Cholecalciferol 1,000 IU DAILY 12/20 1000 AC 12/26 PO 1115 Diltiazem HCl 120 MG DAILY 12/20 1000 AC 12/26 PO 1115 Epoetin Jerson 4,000 UNIT MoWeFr 12/20 1653 AC 12/24 IV 1700 Ferric Sodium 125 MG QWED@1200 12/22 1200 AC 12/22 Gluconate Complex IV 1300 Sodium Chloride 100 ML Furosemide 40 MG 7:30 AM, & 4:30 PM 12/20 0730 AC 12/26 PO 1614 Heparin Sodium 10,000 UNIT .STK-MED ONE 12/26 0007 DC (Porcine) IV 12/26 0008 Heparin Sodium 25,000 UNIT Q24H 12/25 1000 AC 12/26 (Porcine) IV 1117 Sodium Chloride 500 ML Hydromorphone HCl 2 MG Q4P PRN 12/22 1030 AC 12/26 IV 1933 Lorazepam 2 MG QPM 12/19 2200 DC 12/26 PO 2126 Melatonin 5 MG AT BEDTIME 12/26 2199 DC PO Melatonin 5 MG AT BEDTIME 12/26 0215 AC 12/26 PO 212 Multivitamins 1 TAB DAILY 12/20 1000 AC 12/26 PO 1115 Oxycodone HCl 15 MG ONCE ONE 12/26 0945 DC PO 12/26 0946 Oxycodone HCl 15 MG Q6 PRN 12/19 1700 AC 12/26 PO 2126 Paricalcitol 2 MCG MoWeFr 12/20 1653 AC 12/24 IV 1700 Polyethylene Glycol 17 GM DAILY 12/20 1000 AC 12/24 PO 1855 Prednisone 10 MG DAILY 12/20 1000 AC 12/26 PO 1115 Senna 187 MG AT BEDTIME 12/19 2200 AC 12/26 PO 2127 Sertraline HCl 100 MG DAILY 12/20 1000 AC / PO 1115 Sevelamer HCl 2,400 MG TIDAC 12/19 1700 AC 12/26 PO 1614 Tiotropium Austin 1 PUF DAILY 12/20 1000 AC 12/26 INH 1115 Past History Travel History Traveled to [place] past 21 day No Medical History Blood Transfusion Hx: Yes Neurological: TIA EENT: NONE Cardiovascular: AFIB (s/p ablation), CHF, hypertension, mitral stenosis (s/p 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 MVR 02/1996, 01/2006: benign R paratracheal mass, PPM, : Cervical cone bx, 12/19/16: L hip ORIF Family History Relations & Conditions If Any: BROTHER FH: diabetes mellitus MOTHER, , Age 49; Cause: Arteriosclerotic heart disease (ASHD). FATHER, , Age 84; Cause: Old age. Psychosocial History Where Do You Live? Home Who Do You Live With? spouse Services at Home: Nursing, Oxygen, Physical Therapy Primary Language: Kittitian Smoking Status: Former Smoker (D/C 2011 (ex-45-pk yr)) ETOH Use: denies use Illicit Drug Use: denies illicit drug use Living Will? no Power of Greenhouse Assistant/HCP? no Other Social History: . 1 son & 1 dtr- both [employer]. Ex-45-pk yr cigarette smoker, D/C 2011. No EtOH. No drugs. 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 Functional Ability ADLs Independent: dressing, eating, toileting, bathing. Ambulation: independent IADLs Independent: shopping, housework, finances, food prep, telephone, transportation , medication admin. 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 Review of Systems Constitutional: Denies: chills, diaphoresis, fever, malaise, weakness, unexplained weight loss. EENTM: Denies: blurred vision, double vision, visual changes, eye pain, eye drainage, eye tearing, icterus, ear discharge, ear pain, ear redness, hearing changes, nasal congestion, epistaxis, nasal pain, throat pain, throat swelling, mouth pain, tooth pain. Cardiovascular: Reports: peripheral edema (LLE). Denies: chest pain, edema, orthopena, palpitations, syncope. Respiratory: Reports: short of breath (baseline COPD). Denies: cough, hemoptysis, orthopnea, sputum production, stridor, wheezing. GI: Reports: no symptoms (denies any current BRBPR). Denies: abdominal pain, bloating, constipation, diarrhea, distention, bowel incontinence, melena, nausea , bloody stool, changes in stool, vomiting, steatorrhea. Genitourinary: Denies: discharge, dysuria, frequency, hematuria, hesitation, nocturia, pain, urgency. Musculoskeletal: Reports: back pain, joint pain (L hip ORIF). Denies: gout, joint swelling, muscle pain, muscle stiffness, neck pain. Skin: Denies: cysts, change in skin color, change in hair/nails, dryness, erythema, jaundice, lesions, lymphangitis, lumps, moles, rash. Neurological/Psychological: Reports: anxiety, depressed, emotional problems. Denies: ataxia, cognitive dysfunction, confusion, dementia, headache, numbness, paresthesia, pre-existing deficit, petit mal seizures, tingling, tremors, tonic-clonic seizures, unable to move lower ext, unable to move upper ext, weakness. Hematologic/Endocrine: Denies: bruising, bleeding, polyuria, polydipsia. Immunologic/Allergic: Denies: splenectomy, HIV/AIDS, lymphadenopathy. All Other Systems: Reviewed and Negative Exam & Diagnostic Data Vital Signs and I&O Vital Signs Date Time Temp Pulse Resp B/P Pulse O2 O2 Flow FiO2 Ox Delivery Rate 12/26 2126 75 118/54 12/26 2117 98.3 75 18 118/54 96 Nasal 3.0L Cannula 12/26 204 99 Nasal 3.0L Cannula 12/26 1615 97.8 71 20 130/64 99 Nasal 3.0L Cannula 12/26 1600 Nasal 3.0L Cannula 12/26 0804 97 Nasal 3.0L Cannula 12/26 0800 Nasal 3.0L Cannula 12/26 0750 97.7 69 20 104/56 100 Nasal Cannula 12/26 0000 Nasal 3.0L Cannula Intake & Output 12/26 1600 12/26 0400 12/25 1600 12/25 0400 12/24 1600 12/24 0400 Intake Total 1270 830 820 500 480 240 Output Total 300 101 600 0 120 Balance 970 729 220 500 360 240 Intake, IV 450 230 20 Intake, Oral 820 600 820 480 480 240 Number 1 1 0 0 1 Bowel Movements Output, Other 1 Output, Urine 300 100 600 0 120 Patient 182 lb 177 lb Weight Physical Exam: Well-developed, malnourished, chronically ill appearing female, looking much older than her stated age, in no apparent distress. Sclera anicteric. Conjunctiva pale. Oropharynx clear. Poor dentition. No oral thrush. No aphthous ulcers. There is no adenopathy, thyromegaly, or JVD. No peripheral stigmata of inflammatory bowel disease or chronic liver disease on exam. No spiders on the anterior chest wall. Breast & pelvic exams: API. No CVA tenderness. Lungs: clear to A&P, with prolonged expiratory phase. No wheezing, rales, or rhonchi. Heart exam: currently paced S1 and S2, s/p MVR, with mechanical II/ systolic murmur & I/IV diastolic murmur. PPM in left CW. Abdominal exam: normal bowel sounds, soft belly, nontender, without guarding or rebound. No mass. No organomegaly. No fluid shift. No pulsatile mass. No epigastric bruit. Digital rectal exam: done by myself 12/26/2016: *Brown stool, OB negative, no mass, normal sphincter tone, no external hemorrhoids, no fissure. Extremities: without cyanosis or clubbing. 1+ edema LLE postop. No palpable cords. LUE AVF with + thrill, + bruit. *Large hematoma left hip region. Left hip wound dressed per RN (recently changed dressing that had blood ). Distal pulses 1+ bilaterally. DTRs 2+ bilaterally. Right handed. CN II-XII intact. Alert and oriented x 3. Nonfocal, although a detailed exam for peripheral neuropathy was deferred. No tremor. No asterixis. Results Pertinent Lab Results: Laboratory Tests 12/26 12/26 1826 1125 Coagulation APTT (25 - 37 SEC) 63 H 58 H Hematology CBC w Diff MAN DIFF ORDERED WBC (4.8 - 10.8 /CUMM) 18.6 H RBC (4.20 - 5.40 /CUMM) 2.54 L Hgb (12.0 - 16.0 G/DL) 7.8 L Hct (37 - 47 %) 23.6 L MCV (81.0 - 99.0 FL) 93.1 MCH (27.0 - 31.0 PG) 30.6 RDW (11.5 - 14.5 %) 16.1 H Plt Count (130 - 400 /CUMM) 261 MPV (7.4 - 10.4 FL) 8.8 Gran % (42.2 - 75.2 %) 92.0 H Lymphocytes % (20.5 - 51.1 %) 3.6 L Monocytes % (1.7 - 9.3 %) 4.0 Eosinophils % (0 - 5 %) 0.3 Basophils % (0.0 - 2.0 %) 0.1 Absolute Granulocytes (1.4 - 6.5 /CUMM) 17.1 H Segmented Neutrophils (42.2 - 75.2 %) 87 H Band Neutrophils (0.0 - 5.0 %) 4 Absolute Lymphocytes (1.2 - 3.4 /CUMM) 0.7 L Lymphocytes (20.5 - 51.1 %) 7 L Monocytes (1.7 - 9.3 %) 2 Absolute Monocytes (0.10 - 0.60 /CUMM) 0.7 H Absolute Eosinophils (0.0 - 0.7 /CUMM) 0.1 Absolute Basophils (0.0 - 0.2 /CUMM) 0 Platelet Estimate (ADEQUATE) ADEQUATE Polychromasia 1+ Hypochromic-Microcytic 1+ Poikilocytosis 1+ Basophilic Stippling RARE Anisocytosis 1+ Microcytic Cells 1+ Macrocytic Cells 1+ Rudy Cells FEW Elliptocytes FEW PUBS MCHC (33.0 - 37.0 G/DL) 32.9 L 12/26 12/26 12/25 0710 0212 1904 Chemistry Sodium (137 - 145 mmol/L) 133 L Potassium (3.5 - 5.1 mmol/L) 4.4 Chloride (98 - 107 mmol/L) 102 Carbon Dioxide (22 - 30 mmol/L) 22 Anion Gap (5 - 16) 9 BUN (7 - 17 mg/dL) 52 H Creatinine (0.5 - 1.0 mg/dL) 4.2 H Estimated GFR (>60 ml/min) 11 L BUN/Creatinine Ratio (7 - 25 %) 12.4 Coagulation PT (9.4 - 12.5 SEC) 21.4 H INR (0.90 - 1.19) 2.05 H APTT (25 - 37 SEC) > 120 *H 35 Hematology CBC w Diff NO MAN DIFF REQ WBC (4.8 - 10.8 /CUMM) 19.7 H RBC (4.20 - 5.40 /CUMM) 2.43 L Hgb (12.0 - 16.0 G/DL) 7.4 *L Hct (37 - 47 %) 22.9 L MCV (81.0 - 99.0 FL) 94.0 MCH (27.0 - 31.0 PG) 30.3 RDW (11.5 - 14.5 %) 16.8 H Plt Count (130 - 400 /CUMM) 276 MPV (7.4 - 10.4 FL) 9.0 Gran % (42.2 - 75.2 %) 86.1 H Lymphocytes % (20.5 - 51.1 %) 5.7 L Monocytes % (1.7 - 9.3 %) 7.2 Eosinophils % (0 - 5 %) 1.0 Basophils % (0.0 - 2.0 %) 0 L Absolute Granulocytes (1.4 - 6.5 /CUMM) 17.0 H Absolute Lymphocytes (1.2 - 3.4 /CUMM) 1.1 L Absolute Monocytes (0.10 - 0.60 /CUMM) 1.4 H Absolute Eosinophils (0.0 - 0.7 /CUMM) 0.2 Absolute Basophils (0.0 - 0.2 /CUMM) 0 PUBS MCHC (33.0 - 37.0 G/DL) 32.3 L / 03/03 0610 1445 Chemistry Sodium (137 - 145 mmol/L) 139 137 Potassium (3.5 - 5.1 mmol/L) 4.2 4.0 Chloride (98 - 107 mmol/L) 102 100 Carbon Dioxide (22 - 30 mmol/L) 23 26 Anion Gap (5 - 16) 14 12 BUN (7 - 17 mg/dL) 35 H 57 H Creatinine (0.5 - 1.0 mg/dL) 2.9 H 4.8 H Estimated GFR (>60 ml/min) 16 L 9 L BUN/Creatinine Ratio (7 - 25 %) 12.1 11.9 Glucose (65 - 99 mg/dL) 120 H Calcium (8.4 - 10.2 mg/dL) 8.4 Phosphorus (2.5 - 4.5 mg/dL) 3.8 Magnesium (1.6 - 2.3 mg/dL) 1.9 Coagulation PT (9.4 - 12.5 SEC) 19.0 H INR (0.90 - 1.19) 1.82 H Hematology CBC w Diff NO MAN DIFF REQ NO MAN DIFF REQ WBC (4.8 - 10.8 /CUMM) 16.8 H 13.9 H RBC (4.20 - 5.40 /CUMM) 3.00 L 2.72 L Hgb (12.0 - 16.0 G/DL) 9.2 L 8.2 L Hct (37 - 47 %) 28.3 L 24.9 L MCV (81.0 - 99.0 FL) 94.2 91.7 MCH (27.0 - 31.0 PG) 30.6 30.3 RDW (11.5 - 14.5 %) 17.1 H 16.1 H Plt Count (130 - 400 /CUMM) 279 251 MPV (7.4 - 10.4 FL) 8.8 8.8 Gran % (42.2 - 75.2 %) 86.9 H 84.5 H Lymphocytes % (20.5 - 51.1 %) 5.6 L 5.6 L Monocytes % (1.7 - 9.3 %) 7.2 7.8 Eosinophils % (0 - 5 %) 0.2 2.0 Basophils % (0.0 - 2.0 %) 0.1 0.1 Absolute Granulocytes (1.4 - 6.5 /CUMM) 14.6 H 11.8 H Absolute Lymphocytes (1.2 - 3.4 /CUMM) 0.9 L 0.8 L Absolute Monocytes (0.10 - 0.60 /CUMM) 1.2 H 1.1 H Absolute Eosinophils (0.0 - 0.7 /CUMM) 0 0.3 Absolute Basophils (0.0 - 0.2 /CUMM) 0 0 PUBS MCHC (33.0 - 37.0 G/DL) 32.5 L 33.1 03/03 0420 Chemistry Sodium (137 - 145 mmol/L) 136 L Potassium (3.5 - 5.1 mmol/L) 4.4 Chloride (98 - 107 mmol/L) 100 Carbon Dioxide (22 - 30 mmol/L) 27 Anion Gap (5 - 16) 8 BUN (7 - 17 mg/dL) 53 H Creatinine (0.5 - 1.0 mg/dL) 4.2 H Estimated GFR (>60 ml/min) 11 L BUN/Creatinine Ratio (7 - 25 %) 12.6 Calcium (8.4 - 10.2 mg/dL) 8.6 Phosphorus (2.5 - 4.5 mg/dL) 4.7 H Magnesium (1.6 - 2.3 mg/dL) 2.0 Coagulation PT (9.4 - 12.5 SEC) 37.3 H INR (0.90 - 1.19) 3.60 H Hematology CBC w Diff NO MAN DIFF REQ WBC (4.8 - 10.8 /CUMM) 13.3 H RBC (4.20 - 5.40 /CUMM) 2.64 L Hgb (12.0 - 16.0 G/DL) 8.1 L Hct (37 - 47 %) 24.4 L MCV (81.0 - 99.0 FL) 92.6 MCH (27.0 - 31.0 PG) 30.6 RDW (11.5 - 14.5 %) 16.7 H Plt Count (130 - 400 /CUMM) 210 MPV (7.4 - 10.4 FL) 9.8 Gran % (42.2 - 75.2 %) 83.8 H Lymphocytes % (20.5 - 51.1 %) 6.8 L Monocytes % (1.7 - 9.3 %) 8.0 Eosinophils % (0 - 5 %) 1.4 Basophils % (0.0 - 2.0 %) 0 L Absolute Granulocytes (1.4 - 6.5 /CUMM) 11.1 H Absolute Lymphocytes (1.2 - 3.4 /CUMM) 0.9 L Absolute Monocytes (0.10 - 0.60 /CUMM) 1.1 H Absolute Eosinophils (0.0 - 0.7 /CUMM) 0.2 Absolute Basophils (0.0 - 0.2 /CUMM) 0 PUBS MCHC (33.0 - 37.0 G/DL) 33.1 Imaging/Other Studies: 12/17/2016: XRY-HIP 2-3 VIEWS, LEFT; XRY-KNEE COMPLETE LEFT- 1. Left hip: Mildly displaced intertrochanteric fracture of the left femur. 2. Left knee: No acute findings. 12/17/2016: XRY-CHEST XRAY, ONE VIEW ONLY- No acute cardiopulmonary findings. Left-sided pacemaker lead. 12/19/2016: XRY-HIP 2-3 VIEWS, LEFT- Fluoroscopic assistance and successful placement of Gamma Nail at the site of left hip fracture. Full procedural details will be dictated by Dr. Vick. 12/21/2016: CT ABDOMEN AND PELVIS WITHOUT CONTRAST- 1. *Abnormal CT scan of the abdomen and pelvis showing presence of a large hematoma at the left gluteal, hip and proximal left thigh region with intact hardware at left proximal visualized femur. Small amount of fluid is also noted within the presacral space. 2. No other significant interval change since 04/19/2016. 12/22/2016: XR PORTABLE CHEST- Cardiomegaly without acute process. Stable pacer electrodes. 12/22/2016: EKG- paced rhythm at 70. Assessment/Plan Assessment/Recommendations: 66 y/o female, with numerous co-morbidities, including HTN, ESRD on HD (M, W, F) , RHD, atrial fibrillation, previously on warfarin, mitral stenosis s/p prosthetic [facility] mitral valve replacement 02/1996, ex-smoker, COPD on 3L home O2, history ? 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 The patient was seen by the orthopedic surgery team who decided to take her to the OR following cardiac clearance, given her extensive cardiac history. Cardiology felt that given her mechanical mitral valve, the patient was at a high risk for thromboembolic events if her anticoagulation was to be discontinued, and suggested letting INR drift from 4.29 on admission, starting IV heparin drip once INR dropped to < 2 and continuing the drip up until 4-6 hours prior to surgery. INR was reversed according to cardiology recommendations and patient was taken to the OR for L hip IMHS on day 3 of admission (12/19/16). IV heparin drip was continued on the evening of surgery with plan to transition to warfarin, and the patient received 3 mg of warfarin 12/20/2016, POD #1 s/p L hip IMHS. *12/21/2016: H/H dropped to 5.9/18.1 from 9.1/28.6 the day before, with *12/21/2016: CT Abdomen/ Pelvis w/o contrast revealing a large hematoma at the L gluteal, hip and proximal L thigh region. She has been transfused multiple times during dialysis but had an episode of hypotension during dialysis, prompting her to be transferred to the ICU for close hemodynamic monitoring. She was ultimately transferred to telemetry. Coumadin was held in view of the large left gluteal/ hip/proximal thigh hematoma, and she was carefully continued on IV heparin, as she is high risk for CVA, with [facility] metallic MVR and underlying atrial fibrillation. She is not on aspirin or NSAIDs. The patient had scant rectal bleeding after defecation on 12/25/2016, apparently prompting the GI consult, despite numerous other issues for her anemia, including the large hematoma & CKD. She is also on EPO. According to the patient 's RN, her left hip dressing was previously saturated with blood. The patient has had an extensive GI workup in the past: 02/13/2003: EGD/colonoscopy to TI per Dr. Ng- random duodenal biopsy normal villi; nonspecific colitis on random biopsies with borderline collagenous colitis. No active upper or lower GI bleeding. 08/20/2014: EGD/colonoscopy per Dr. Gudino- gastroparesis; fair prep to cecum, without active upper or lower GI bleeding. 05/21/2015: PillCam- negative except benign lymphangiectasia. Dr. Gudino last with the patient in inpatient GI consultation 10/27/2015 for OB positive stool, without any melena, rectal bleeding, or hematemesis, and in view of the above workup, a conservative approach was advised. The patient currently denies any GI symptoms whatsoever. *There has been no rectal bleeding today on 12/26/2016 & my digital rectal exam of 12/26/2016 showed brown OB negative stool. There was no spontaneous lower GI bleeding. She denied any melena, diarrhea, constipation, obstipation, tenesmus, change in stool caliber, abdominal pain, nausea, vomiting, reflux, hematemesis, or early satiety, despite the history of gastroparesis. She is tolerating a 2g Na+ renal diet. She has baseline SOB from COPD. There is no chest pain. There is no family history of GI disease, GI malignancy, or inherited liver disease. 12/17/2016: XRY-HIP 2-3 VIEWS, LEFT; XRY-KNEE COMPLETE LEFT- 1. Left hip: Mildly displaced intertrochanteric fracture of the left femur. 2. Left knee: No acute findings. 12/17/2016: XRY-CHEST XRAY, ONE VIEW ONLY- No acute cardiopulmonary findings. Left-sided pacemaker lead. 12/19/2016: XRY-HIP 2-3 VIEWS, LEFT- Fluoroscopic assistance and successful placement of Gamma Nail at the site of left hip fracture. Full procedural details will be dictated by Dr. Vick. 12/21/2016: CT ABDOMEN AND PELVIS WITHOUT CONTRAST- 1. *Abnormal CT scan of the abdomen and pelvis showing presence of a large hematoma at the left gluteal, hip and proximal left thigh region with intact hardware at left proximal visualized femur. Small amount of fluid is also noted within the presacral space. 2. No other significant interval change since 04/19/2016. 12/22/2016: XR PORTABLE CHEST- Cardiomegaly without acute process. Stable pacer electrodes. 12/22/2016: EKG- paced rhythm at 70. *The patient is clearly not actively bleeding from her GI tract. She is currently OB negative. I do not think the scant rectal bleeding after defecation on 12/25/2016 has any clinical significance. She has had a fairly thorough GI workup as above, within the past 2 years, including EGD/colonoscopy, and PillCam. Her anemia is predominantly from her large hematoma in the left hip/left thigh region, superimposed on CKD. SUGGEST: Consider repeat CT to check dimensions of large left hip hematoma. Wound care of left hip, as per orthopedics. Carefully continue IV heparin per cardiology, as patient is at increased risk for CVA with [facility] MVR and history of atrial fibrillation (although she did have AV hari ablation). Transfuse as needed. Continue EPO. Transfuse as needed, with HD. Keep Hgb > 8. Watch for CHF. Continue O2. Further inpatient GI follow up as needed. *The patient was told to follow-up with Dr. Gudino as an outpatient, but her scant rectal bleeding which resolved seems clinically insignificant & irrelevant to her anemia. I discussed the above with the patient & the medical housestaff. Problem List: 1. Anemia 2. Hematoma of left hip Copies To: REE LANE,VICTOR MANUEL Conway; DARRELL LANE,KEREN S.; SRINI LANE,MILES S.; KING LANE,KARLIE N.; AVINASH LANE,DENISA Khanna; TYREL LANE,YAIR; MATT LANE,LISETH Consult Acknowledgment - Thank you for your consult request.
[2016-12-26 21:18] VITALS: BP 118/54
--- NOTE | 2016-12-26 22:14 | NUR ---
DOCUMENTED IN WOUND CARE OF IPOC, CHANGED L HIP DRESSING TWO TIMES (ONCE AT 1900 AND AGAIN AT APPROX 2144. MODERATE AMT BLOODY SEROSANGIUNEOUS DRAINAGE BOTH TIMES (SATURATED THROUGH ABD PAD, TELFA, AND 2 FLUFF). INFORMED DIRECTOR HYDROGEN STORAGE ENGINEERING PRABHA AND INFORMED SURGICAL PA AT TIME OF 2144 DRSG CHANGE. PATIENT WITH POSITIVE PULSES TO BLE. L HIP-LEG WITH +3 EDEMA, CONTINUES WITH HEMATOMA TO L HIP. NO NEW ORDERS. WILL CTM.
--- NOTE | 2016-12-27 08:08 | PN- Housestaff ---
Subjective Follow-up For: Surgical hematoma with active drainage s/p IMHS post op anemia ESRD Tele-Events Since Last Visit: single pacing, 69-80s, no overnight events. Subjective: seen and examined patient, states her left upper leg is painful. Denies chest pain, palpitations, shortness of breath. Review of Systems Constitutional: Denies: chills, diaphoresis, fever, malaise, weakness, unexplained weight loss. Cardiovascular: Denies: chest pain, edema, orthopena, palpitations, peripheral edema, syncope. Respiratory: Denies: cough, hemoptysis, orthopnea, short of breath, sputum production, stridor, wheezing. Objective Last 24 Hrs of Vital Signs/I&O Vital Signs Date Time Temp Pulse Resp B/P Pulse O2 O2 Flow FiO2 Ox Delivery Rate 12/27 599 Nasal 3.0L Cannula 12/26 2126 75 118/54 12/268 98.3 75 18 118/54 96 Nasal 3.0L Cannula 12/26 2041 99 Nasal 3.0L Cannula 12/26 1615 97.8 71 20 130/64 99 Nasal 3.0L Cannula 12/26 1600 Nasal 3.0L Cannula 12/26 0804 97 Nasal 3.0L Cannula 12/26 0800 Nasal 3.0L Cannula Intake & Output 12/27 0800 / 0000 12/26 1600 Intake Total 300 875 960 Output Total 200 300 Balance 300 675 660 Intake, IV 275 240 Intake, Oral 300 600 720 Number 1 Bowel Movements Output, Urine 200 300 Physical Exam General Appearance: Alert, Oriented X3, Cooperative, No Acute Distress Cardiovascular: Regular Rate, Normal S1, Normal S2 Lungs: Normal Air Movement Abdomen: Soft Extremities: Normal Pulses, left thigh bigger than right thigh. serosanguinous discharge noted from dressing near the hip, tenderness in upper left thigh on light palpation Assessment/Plan Assessment: 66 y/o woman with PMHx of ESRD on HD(MWF),atrial fibrillation on warfarin, mitral stenosis s/p mechanical valve replacement initially admitted for L hip intertrochanteric failure 2/2 mechanical fall, now POD #8 s/p L hip IMHS, complicated by ABLA 2/2 hematoma at the surgical site while on bridging anticoagulation. #Supratherapeutic INR (resolved): - INR goal is 2.5-3.5 given mechanical mitral valve. * Cardiology following. Appreciate their recs. * IV heparin for anticoagulation * Will followup with orthopedic team to see if they agree after placement of pro -line as INR is between 2-2.5. #ABLA:. * H/H 7.4/23.6 s/p 4 units of PRBC, will be transfused one unit today with dialyisis * Continue to monitor H/H and transfuse as needed to keep Hgb > 8. # L hip intertrochanteric fracture: POD #8 s/p L hip IMHS. * Management per orthopedic surgery team. # ESRD: Secondary to presumed hypertensive nephrosclerosis. * Nephrology following. Appreciate their recs. * Continue Epogen 4000 units IV and Zemplar 2 mcg IV three times per week with HD. * Continue Nephrocaps tab PO daily and Sevelamer 2400 mg PO TIDAC. * will be undergoing dialysis today Diet: Renal Dialysis Diet DVT PPx: IV heparin CODE: DNR/DNI Problem List: 1. Hypertension Pain Ratin Pain Location: left upper thigh Pain Goal: Pain 4 or less Pain Plan: current regimen Tomorrow's Labs & Rationales: cbc/bep/inr
[2016-12-27 09:19] VITALS: BP 100/60
--- NOTE | 2016-12-27 10:18 | PN- Att Addend ---
Attending Addendum Attending Brief Note Patient looks a little better today, nonetheless pain on some pain about the same vital signs stable and orthopedic checked hematoma and the serosanguineous secretions. We'll continue present treatment will get another unit of blood. We'll continue her hemodialysis and physical therapy. After the transfusions and the dialysis and then we'll start disposition plans to short-term rehabilitation Current Medications Sig/Tripp Start time Last Medication Dose Route Stop Time Status Admin Acetaminophen 650 MG Q6P PRN 12/19 1700 AC PO Albuterol Sulfate 3 ML TID 12/23 2199 AC 12/27 INH 0800 Albuterol Sulfate 2 PUF Q4-6 PRN PRN 12/19 1700 AC INH Amlodipine Besylate 10 MG AT BEDTIME 12/19 2199 AC 12/26 PO 212 Bisacodyl 5 MG AT BEDTIME 12/19 2200 AC 12/26 PO 2127 Budesonide/ 2 PUF BID 12/19 2200 AC 12/27 Formoterol Fumarate INH 1006 Cholecalciferol 1,000 IU DAILY 12/20 1000 AC 12/26 PO 1115 Diltiazem HCl 120 MG DAILY 12/20 1000 AC 12/26 PO 1115 Epoetin Jerson 4,000 UNIT MoWeFr 12/20 1653 AC 12/24 IV 1700 Ferric Sodium 125 MG QWED@1200 12/22 1200 AC 12/22 Gluconate Complex IV 1300 Sodium Chloride 100 ML Furosemide 40 MG 7:30 AM, & 4:30 PM 12/20 0730 AC 12/26 PO 1614 Heparin Sodium 25,000 UNIT Q24H 12/25 1000 AC 12/27 (Porcine) IV 0157 Sodium Chloride 500 ML Hydromorphone HCl 2 MG Q4P PRN 12/22 1030 AC 12/27 IV 0422 Lorazepam 2 MG QPM 12/19 2200 DC 12/26 PO 2126 Melatonin 5 MG AT BEDTIME 12/26 0215 AC 12/26 PO 2127 Multivitamins 1 TAB DAILY 12/20 1000 AC 12/26 PO 1115 Oxycodone HCl 15 MG Q6 PRN 12/19 1700 AC 12/27 PO 0706 Paricalcitol 2 MCG MoWeFr 12/20 1653 AC 12/24 IV 1700 Polyethylene Glycol 17 GM DAILY 12/20 1000 AC 12/24 PO 1855 Prednisone 10 MG DAILY 12/20 1000 AC 12/26 PO 1115 Senna 187 MG AT BEDTIME 12/19 2200 AC 12/26 PO 2127 Sertraline HCl 100 MG DAILY 12/20 1000 AC 12/26 PO 1115 Sevelamer HCl 2,400 MG TIDAC 12/19 1700 AC 12/27 PO 0800 Tiotropium [place] 1 PUF DAILY 12/20 1000 AC 12/27 INH 1005 Laboratory Tests 12/26/16 1826: APTT 63 H, CBC w Diff MAN DIFF ORDERED, RBC 2.54 L, MCV 93.1, MCH 30.6, RDW 16.1 H, MPV 8.8, Gran % 92.0 H, Lymphocytes % 3.6 L, Monocytes % 4.0, Eosinophils % 0.3, Basophils % 0.1, Absolute Granulocytes 17.1 H, Segmented Neutrophils 87 H, Band Neutrophils 4, Absolute Lymphocytes 0.7 L, Lymphocytes 7 L, Monocytes 2, Absolute Monocytes 0.7 H, Absolute Eosinophils 0.1, Absolute Basophils 0, Platelet Estimate ADEQUATE, Polychromasia 1+, Hypochromic- Microcytic 1+, Poikilocytosis 1+, Basophilic Stippling RARE, Anisocytosis 1+, Microcytic Cells 1+, Macrocytic Cells 1+, Temple Cells FEW, Elliptocytes FEW, PUBS MCHC 32.9 L 12/26/16 1125: APTT 58 H Vital Signs Date Time Temp Pulse Resp B/P Pulse O2 O2 Flow FiO2 Ox Delivery Rate 12/27 918 98.0 71 18 100/60 96 Nasal Cannula 12/27 0813 99 Nasal 3.0L Cannula 12/27 0600 Nasal 3.0L Cannula Intake & Output 12/27 1600 Intake Total Output Total Balance Patient 183 lb Weight Restart Coumadin.
--- NOTE | 2016-12-27 11:38 | PN- Nephrology ---
Assessment/Plan Assessment: ESRD - Hg continues to downtrend on heparin gtt unfortunately. Given mechanical valve will need anticoagulation usp. Hopefully the bleeding can stop without needing further intervention. Anemia - 2/2 bleeding but then also getting Epogen with dialysis. 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 Suggestion: -Dialysis today - UF to EDW as tolerated -Cont Epogen -Cont Zemplar -AC as per Cards/Ortho Subjective Subjective: Pt feeling tired but no specific other complaints To get dialysis later today Hg 9.2->7.4->7.8 - on Heparin gtt Objective Vital Signs and I&Os Vital Signs Date Time Temp Pulse Resp B/P Pulse O2 O2 Flow FiO2 Ox Delivery Rate 12/27 1029 Nasal 3.0L Cannula 12/27 0919 98.0 71 18 100/60 96 Nasal Cannula 12/27 0813 99 Nasal 3.0L Cannula 12/27 0600 Nasal 3.0L Cannula 12/26 2127 75 118/54 12/26 2118 98.3 75 18 118/54 96 Nasal 3.0L Cannula 12/26 2041 99 Nasal 3.0L Cannula 12/26 1615 97.8 71 20 130/64 99 Nasal 3.0L Cannula 12/26 1600 Nasal 3.0L Cannula Intake & Output 12/27 1600 12/27 0400 12/26 1600 12/26 0400 12/25 1600 12/25 0400 Intake Total 808 366 7042 830 820 500 Output Total 25 200 300 101 600 0 Balance 275 675 970 729 220 500 Intake, IV 275 450 230 20 Intake, Oral 300 600 820 600 820 480 Number 1 1 1 0 Bowel Movements Output, Other 1 Output, Urine 25 200 300 100 600 0 Patient 183 lb 182 lb 177 lb Weight Physical Exam: Gen - weak appearing HEENT - supple CV - RRR Chest - clear Abd - soft Ext - no bruising seen by L hip, trace edema Neuro - AOX3 Current Medications: Current Medications Sig/Tripp Start time Last Medication Dose Route Stop Time Status Admin Acetaminophen 650 MG Q6P PRN 12/19 1700 AC PO Albuterol Sulfate 3 ML TID 12/23 2199 AC / INH 0800 Albuterol Sulfate 2 PUF Q4-6 PRN PRN 12/19 170 AC INH Amlodipine Besylate 10 MG AT BEDTIME 12/19 2199 AC 12/26 PO 2126 Bisacodyl 5 MG AT BEDTIME 12/19 220 AC 12/26 PO 212 Budesonide/ 2 PUF BID 12/19 220 AC 12/27 Formoterol Fumarate INH 1006 Cholecalciferol 1,000 IU DAILY 12/20 1000 AC 12/26 PO 111 Diltiazem HCl 120 MG DAILY 12/20 1000 AC 12/26 PO 1115 Epoetin Jerson 4,000 UNIT MoWeFr 12/20 1653 AC 12/24 IV 1700 Ferric Sodium 125 MG QWED@1200 12/22 1200 AC 12/22 Gluconate Complex IV 1300 Sodium Chloride 100 ML Furosemide 40 MG 7:30 AM, & 4:30 PM 12/20 0730 AC 12/26 PO 1614 Heparin Sodium 25,000 UNIT Q24H 12/25 1000 AC 12/27 (Porcine) IV 0157 Sodium Chloride 500 ML Hydromorphone HCl 2 MG Q4P PRN 12/22 1030 AC 12/27 IV 1102 Lorazepam 2 MG QPM 12/19 2200 DC 12/26 PO 2126 Melatonin 5 MG AT BEDTIME 12/26 0215 AC 12/26 PO 2127 Multivitamins 1 TAB DAILY 12/20 1000 AC 12/26 PO 1115 Oxycodone HCl 15 MG Q6 PRN 12/19 1700 AC 12/27 PO 0706 Paricalcitol 2 MCG MoWeFr 12/20 165 AC 12/24 IV 1700 Polyethylene Glycol 17 GM DAILY 12/20 1000 AC 12/24 PO 1855 Prednisone 10 MG DAILY 12/20 1000 AC 12/26 PO 1115 Senna 187 MG AT BEDTIME 12/19 2200 AC 12/26 PO 2127 Sertraline HCl 100 MG DAILY 12/20 1000 AC 12/26 PO 1115 Sevelamer HCl 2,400 MG TIDAC 12/19 1700 AC 12/27 PO 0800 Tiotropium [place] 1 PUF DAILY 12/20 1000 AC 12/27 INH 1005 Results Pertinent Lab Results: Laboratory Tests 12/26 12/26 1826 1125 Coagulation APTT (25 - 37 SEC) 63 H 58 H Hematology CBC w Diff MAN DIFF ORDERED WBC (4.8 - 10.8 /CUMM) 18.6 H RBC (4.20 - 5.40 /CUMM) 2.54 L Hgb (12.0 - 16.0 G/DL) 7.8 L Hct (37 - 47 %) 23.6 L MCV (81.0 - 99.0 FL) 93.1 MCH (27.0 - 31.0 PG) 30.6 RDW (11.5 - 14.5 %) 16.1 H Plt Count (130 - 400 /CUMM) 261 MPV (7.4 - 10.4 FL) 8.8 Gran % (42.2 - 75.2 %) 92.0 H Lymphocytes % (20.5 - 51.1 %) 3.6 L Monocytes % (1.7 - 9.3 %) 4.0 Eosinophils % (0 - 5 %) 0.3 Basophils % (0.0 - 2.0 %) 0.1 Absolute Granulocytes (1.4 - 6.5 /CUMM) 17.1 H Segmented Neutrophils (42.2 - 75.2 %) 87 H Band Neutrophils (0.0 - 5.0 %) 4 Absolute Lymphocytes (1.2 - 3.4 /CUMM) 0.7 L Lymphocytes (20.5 - 51.1 %) 7 L Monocytes (1.7 - 9.3 %) 2 Absolute Monocytes (0.10 - 0.60 /CUMM) 0.7 H Absolute Eosinophils (0.0 - 0.7 /CUMM) 0.1 Absolute Basophils (0.0 - 0.2 /CUMM) 0 Platelet Estimate (ADEQUATE) ADEQUATE Polychromasia 1+ Hypochromic-Microcytic 1+ Poikilocytosis 1+ Basophilic Stippling RARE Anisocytosis 1+ Microcytic Cells 1+ Macrocytic Cells 1+ Rudy Cells FEW Elliptocytes FEW PUBS MCHC (33.0 - 37.0 G/DL) 32.9 L 12/26 12/26 03/ 0710 0212 1904 Chemistry Sodium (137 - 145 mmol/L) 133 L Potassium (3.5 - 5.1 mmol/L) 4.4 Chloride (98 - 107 mmol/L) 102 Carbon Dioxide (22 - 30 mmol/L) 22 Anion Gap (5 - 16) 9 BUN (7 - 17 mg/dL) 52 H Creatinine (0.5 - 1.0 mg/dL) 4.2 H Estimated GFR (>60 ml/min) 11 L BUN/Creatinine Ratio (7 - 25 %) 12.4 Coagulation PT (9.4 - 12.5 SEC) 21.4 H INR (0.90 - 1.19) 2.05 H APTT (25 - 37 SEC) > 120 *H 35 Hematology CBC w Diff NO MAN DIFF REQ WBC (4.8 - 10.8 /CUMM) 19.7 H RBC (4.20 - 5.40 /CUMM) 2.43 L Hgb (12.0 - 16.0 G/DL) 7.4 *L Hct (37 - 47 %) 22.9 L MCV (81.0 - 99.0 FL) 94.0 MCH (27.0 - 31.0 PG) 30.3 RDW (11.5 - 14.5 %) 16.8 H Plt Count (130 - 400 /CUMM) 276 MPV (7.4 - 10.4 FL) 9.0 Gran % (42.2 - 75.2 %) 86.1 H Lymphocytes % (20.5 - 51.1 %) 5.7 L Monocytes % (1.7 - 9.3 %) 7.2 Eosinophils % (0 - 5 %) 1.0 Basophils % (0.0 - 2.0 %) 0 L Absolute Granulocytes (1.4 - 6.5 /CUMM) 17.0 H Absolute Lymphocytes (1.2 - 3.4 /CUMM) 1.1 L Absolute Monocytes (0.10 - 0.60 /CUMM) 1.4 H Absolute Eosinophils (0.0 - 0.7 /CUMM) 0.2 Absolute Basophils (0.0 - 0.2 /CUMM) 0 PUBS MCHC (33.0 - 37.0 G/DL) 32.3 L 03/04 03/03 0610 1445 Chemistry Sodium (137 - 145 mmol/L) 139 137 Potassium (3.5 - 5.1 mmol/L) 4.2 4.0 Chloride (98 - 107 mmol/L) 102 100 Carbon Dioxide (22 - 30 mmol/L) 23 26 Anion Gap (5 - 16) 14 12 BUN (7 - 17 mg/dL) 35 H 57 H Creatinine (0.5 - 1.0 mg/dL) 2.9 H 4.8 H Estimated GFR (>60 ml/min) 16 L 9 L BUN/Creatinine Ratio (7 - 25 %) 12.1 11.9 Glucose (65 - 99 mg/dL) 120 H Calcium (8.4 - 10.2 mg/dL) 8.4 Phosphorus (2.5 - 4.5 mg/dL) 3.8 Magnesium (1.6 - 2.3 mg/dL) 1.9 Coagulation PT (9.4 - 12.5 SEC) 19.0 H INR (0.90 - 1.19) 1.82 H Hematology CBC w Diff NO MAN DIFF REQ NO MAN DIFF REQ WBC (4.8 - 10.8 /CUMM) 16.8 H 13.9 H RBC (4.20 - 5.40 /CUMM) 3.00 L 2.72 L Hgb (12.0 - 16.0 G/DL) 9.2 L 8.2 L Hct (37 - 47 %) 28.3 L 24.9 L MCV (81.0 - 99.0 FL) 94.2 91.7 MCH (27.0 - 31.0 PG) 30.6 30.3 RDW (11.5 - 14.5 %) 17.1 H 16.1 H Plt Count (130 - 400 /CUMM) 279 251 MPV (7.4 - 10.4 FL) 8.8 8.8 Gran % (42.2 - 75.2 %) 86.9 H 84.5 H Lymphocytes % (20.5 - 51.1 %) 5.6 L 5.6 L Monocytes % (1.7 - 9.3 %) 7.2 7.8 Eosinophils % (0 - 5 %) 0.2 2.0 Basophils % (0.0 - 2.0 %) 0.1 0.1 Absolute Granulocytes (1.4 - 6.5 /CUMM) 14.6 H 11.8 H Absolute Lymphocytes (1.2 - 3.4 /CUMM) 0.9 L 0.8 L Absolute Monocytes (0.10 - 0.60 /CUMM) 1.2 H 1.1 H Absolute Eosinophils (0.0 - 0.7 /CUMM) 0 0.3 Absolute Basophils (0.0 - 0.2 /CUMM) 0 0 PUBS MCHC (33.0 - 37.0 G/DL) 32.5 L 33.1 Imaging/Other Studies: EXAM TYPE: CAT - CT ABD & PELVIS W/O IV CONTRAS EXAMINATION: CT ABDOMEN AND PELVIS WITHOUT CONTRAST CLINICAL INFORMATION: 66-year-old female with left hip fracture, status post Gamma Nail placement. Acute drop in hematocrit from 9 to 6.4. COMPARISON: X-ray left hip done on 12/17/[address] of the abdomen and pelvis done on 04/19/2016. TECHNIQUE: Multidetector volumetric imaging was performed from the superior aspect of the liver through the pubic symphysis. Sagittal and coronal reformatted images were obtained on the technologist's workstation. DLP: 384.51 mGy-cm. FINDINGS: LUNG BASES: Curvilinear band-like opacity is noted at left lung base, likely representing hypoventilatory, atelectatic changes, new since prior study dated 04/19/2016. LIVER, GALLBLADDER, AND BILIARY TREE: The liver is normal in size, shape, and attenuation. No focal hepatic lesion or biliary ductal dilatation is present. Multiple subcentimeter partially calcific calculi are noted, similar to prior study. PANCREAS: Unremarkable. SPLEEN: Contour deformity, calcifications are present, may represent old posttraumatic change, unchanged. ADRENAL GLANDS: Unremarkable. KIDNEYS AND URETERS: Both kidneys are atrophied with superimposed parapelvic left renal cyst, the left kidney appears significantly smaller as compared to the prior study. BLADDER: Unremarkable. GASTROINTESTINAL TRACT: The small and large bowel are unremarkable. The appendix is not visualized. ABDOMINAL WALL: There is a large soft tissue hematoma identified in the left gluteal region extending into the surgical bed, including the adjacent posteromedial and lateral aspects of the left proximal thigh, measures approximately 12.0 x 9.2 x 6.0 cm. The hardware appears to be intact. The fracture lines are still visualized. LYMPH NODES: Normal. VASCULAR: Extensive atherosclerotic disease is noted within the aorta and its branches. PELVIC VISCERA: Subtle presacral fluid density is noted, new since prior study. There is no pelvic mass present. OSSEOUS STRUCTURES: Postsurgical changes are noted within the left proximal femur with intact hardware. IMPRESSION: 1. Abnormal CT scan of the abdomen and pelvis showing presence of a large hematoma at the left gluteal, hip and proximal left thigh region with intact hardware at left proximal visualized femur. Small amount of fluid is also noted within the presacral space. 2. No other significant interval change since 04/19/2016.
--- NOTE | 2016-12-27 13:37 | NUR ---
Physical therapy. Pt cancel this AM 2/2 busy with nursing interventions, cx this PM 2/2 RUBI at dialysis. PT will f/u as appropriate.
[2016-12-27 14:41] LABS: PT 23.5 SEC (9.4-12.5); PTT 67 SEC (25-37)
[2016-12-27 14:44] LABS: ABSOLUTE BASOPHIL COUNT 0 /CUMM (0.0-0.2); ABSOLUTE EOSINOPHIL COUNT 0.1 /CUMM (0.0-0.7); ABSOLUTE GRANULOCYTE CT 12.6 /CUMM (1.4-6.5); ABSOLUTE LYMPH COUNT 0.8 /CUMM (1.2-3.4); BASOPHIL % 0.1 % (0.0-2.0); EOSINOPHIL % 0.9 % (0-5); MEAN CORPUSCULAR HGB 31.2 PG (27.0-31.0); MEAN CORPUSCULAR HGB CONC 33.6 G/DL (33.0-37.0); MEAN CORPUSCULAR VOLUME 92.7 FL (81.0-99.0); MEAN PLATELET VOLUME 9.4 FL (7.4-10.4); PLATELET COUNT 227 /CUMM (130-400); RBC DISTRIBUTION WIDTH 16.5 % (11.5-14.5); RED BLOOD CELL CT 2.09 /CUMM (4.20-5.40); WHITE BLOOD CELL COUNT 14.6 /CUMM (4.8-10.8)
[2016-12-27 14:49] LABS: HEMATOCRIT 19.4 % (37-47)
[2016-12-27 15:12] LABS: GRANULOCYTE % 86.3 % (42.2-75.2)
[2016-12-27 17:40] LABS: ABSOLUTE BASOPHIL COUNT 0 /CUMM (0.0-0.2); ABSOLUTE EOSINOPHIL COUNT 0.1 /CUMM (0.0-0.7); ABSOLUTE GRANULOCYTE CT 14.4 /CUMM (1.4-6.5); ABSOLUTE LYMPH COUNT 0.8 /CUMM (1.2-3.4); ABSOLUTE MONOCYTE COUNT 1.1 /CUMM (0.10-0.60); BASOPHIL % 0.2 % (0.0-2.0); EOSINOPHIL % 0.5 % (0-5); MEAN CORPUSCULAR HGB 30.6 PG (27.0-31.0); MEAN CORPUSCULAR HGB CONC 33.5 G/DL (33.0-37.0); MEAN CORPUSCULAR VOLUME 91.3 FL (81.0-99.0); MEAN PLATELET VOLUME 8.5 FL (7.4-10.4); PLATELET COUNT 239 /CUMM (130-400); RBC DISTRIBUTION WIDTH 15.8 % (11.5-14.5); WHITE BLOOD CELL COUNT 16.4 /CUMM (4.8-10.8)
[2016-12-27 17:44] LABS: RED BLOOD CELL CT 2.95 /CUMM (4.20-5.40)
[2016-12-27 17:45] LABS: GRANULOCYTE % 87.6 % (42.2-75.2)
[2016-12-27 22:00] VITALS: BP 130/58
--- NOTE | 2016-12-27 22:59 | NUR ---
L HIP DRESSING CHANED AT APPROX 1800 WITH XEROFORM, TELFA, FLUFF, ABD. MODERATE SERSANGUENOUS-BLDY DRAINAGE NOTED. REMAINED CDI THOUGHTOUT REST OF SHIFT.
[2016-12-28 03:20] LABS: PTT 40 SEC (25-37)
[2016-12-28 07:46] VITALS: BP 104/54
[2016-12-28 08:12] LABS: PT 25.1 SEC (9.4-12.5)
--- NOTE | 2016-12-28 08:36 | CT SCAN REPORT ---
EXAMINATION: CT ABDOMEN AND PELVIS WITHOUT CONTRAST CLINICAL INFORMATION: Evaluate for increase in size hematoma. COMPARISON: 12/21/2016 and 04/19/2016 TECHNIQUE: Multidetector volumetric imaging was performed from the superior aspect of the liver through the pubic symphysis. Sagittal and coronal reformatted images were obtained on the technologist's workstation. DLP: 391.5 mGy-cm FINDINGS: LUNG BASES: Marked centrilobular emphysema is present in the lung bases. Heart is enlarged. Pacemaker leads are present. There is a 0.7 cm soft tissue nodule in the left lower lobe which is unchanged from the prior study but new from 04/19/2016. The more oblong 3 x 1 cm band like soft tissue density is unchanged from prior and new from 2016 as well. Atelectasis is present at the right lung base. LIVER, GALLBLADDER, AND BILIARY TREE: The liver is normal in size, shape, and attenuation. No focal hepatic lesion or biliary ductal dilatation is present. Numerous dense dependent layering gallbladder stones are again noted. No bladder wall thickening or surrounding inflammatory changes. No biliary ductal dilatation. PANCREAS: Unremarkable. SPLEEN: Lobular contour of the spleen and peripheral calcifications are unchanged and may correspond to changes of remote trauma. The appearance is unchanged from prior. ADRENAL GLANDS: Unremarkable. KIDNEYS AND URETERS: Bilateral renal atrophy is again noted. Multiple cysts of the left kidney are not appreciably changed as compared to prior, the largest of these measures 3.2 cm in greatest diameter at the upper pole of the left kidney. Punctate calcifications are again seen within the wall of the upper pole cyst. No significant perinephric stranding. No hydronephrosis or hydroureter. BLADDER: Unremarkable. GASTROINTESTINAL TRACT: Stomach, small bowel, and colon are normal in caliber. No bowel wall thickening. Moderate to large volume of stool is present throughout the colon. No intraperitoneal free air or free fluid. ABDOMINAL WALL: Small fat-containing right inguinal hernia. No bowel involvement. LYMPH NODES: Normal. VASCULAR: Calcific atherosclerosis is present in the abdominal aorta and iliac arteries. No aneurysmal dilatation. PELVIC VISCERA: Unremarkable OSSEOUS STRUCTURES: Postsurgical changes of left intertrochanteric fracture fixation with a Gamma nail and intramedullary kim are again noted. Degenerative disc disease and facet arthropathy are present in the lumbar spine. No new fractures. PELVIC MUSCULATURE/SOFT TISSUE: The soft tissue hematoma along the incision tract at the lateral aspect of the gluteus medius measures 5.7 x 3.9 x 7.6 cm (transverse by AP by craniocaudal) not significantly changed from the prior study by my measurement. There is surrounding soft tissue edema. There is a additional hematoma distal to this which is increased in size from the prior study, occurring at the site of the incision for the gamma nail placement. This multilocular collection measures roughly 5.2 x 3.7 x 4 cm. The inferior margin is not included on this study. Previously, this measured 2 x 2.6 x 3 cm. IMPRESSION: 1. No significant change in the size of the hematoma the lateral aspect of the gluteal musculature. There is a second, partially imaged hematoma distal to this at the lateral aspect of the proximal femoral shaft which has increased in size from the prior study, now measuring 5.2 x 3.7 x 4 cm. This region is incompletely imaged on this study. For follow-up of these hematomas, a CT of the thigh would be more optimal for covering the area of interest than a CT abdomen pelvis. 2. Two nodular opacities at the left lower lobe which are new from March 2016 and warrant follow-up to ensure resolution. According to the UPDATED 2017 Fleischner Society recommendations, the advised follow-up imaging for multiple solid nodules, the largest measuring 6 mm or greater, is CT at 3-6 months, then at 18-24 months. 3. Cholelithiasis. 4. Bilateral renal atrophy with left renal cysts.
[2016-12-28 08:37] LABS: ABSOLUTE BASOPHIL COUNT 0 /CUMM (0.0-0.2); ABSOLUTE EOSINOPHIL COUNT 0 /CUMM (0.0-0.7); ABSOLUTE GRANULOCYTE CT 11.9 /CUMM (1.4-6.5); ABSOLUTE LYMPH COUNT 0.7 /CUMM (1.2-3.4); ABSOLUTE MONOCYTE COUNT 0.9 /CUMM (0.10-0.60); BASOPHIL % 0.2 % (0.0-2.0); EOSINOPHIL % 0.1 % (0-5); MEAN CORPUSCULAR HGB 31.1 PG (27.0-31.0); MEAN CORPUSCULAR HGB CONC 33.8 G/DL (33.0-37.0); MEAN CORPUSCULAR VOLUME 91.8 FL (81.0-99.0); MEAN PLATELET VOLUME 9.5 FL (7.4-10.4); PLATELET COUNT 197 /CUMM (130-400); RBC DISTRIBUTION WIDTH 15.5 % (11.5-14.5); WHITE BLOOD CELL COUNT 13.5 /CUMM (4.8-10.8)
[2016-12-28 09:13] LABS: GRANULOCYTE % 88.2 % (42.2-75.2)
--- NOTE | 2016-12-28 10:20 | PN- Att Addend ---
Attending Addendum Attending Brief Note No new complaints vital signs stable, patient is febrile color is improved, her hemoglobin and hematocrit are stable not dropping. CAT scan showed no changes or increase in size of the hematoma would restart the Coumadin, continue heparin to monitor her INR . Continue physical therapy continue her hemodialysis. Stable in a.m. and INR is therapeutic then we'll start disposition plans continue prednisone for a couple more days. Current Medications Sig/Tripp Start time Last Medication Dose Route Stop Time Status Admin Acetaminophen 650 MG Q6P PRN 12/19 1700 AC PO Albuterol Sulfate 3 ML TID 12/23 2200 AC 12/28 INH 0801 Albuterol Sulfate 2 PUF Q4-6 PRN PRN 12/19 170 AC INH Amlodipine Besylate 10 MG AT BEDTIME 12/19 2200 AC 12/27 PO 2215 Bisacodyl 5 MG AT BEDTIME 12/19 2200 AC 12/27 PO 2214 Budesonide/ 2 PUF BID 12/19 2200 AC 12/27 Formoterol Fumarate INH 2215 Cholecalciferol 1,000 IU DAILY 12/20 1000 AC 12/27 PO 1828 Diltiazem HCl 120 MG DAILY 12/20 1000 AC 12/27 PO 1828 Epoetin Jerson 4,000 UNIT MoWeFr 12/20 1653 AC 12/24 IV 1700 Ferric Sodium 125 MG QWED@1200 12/22 1200 AC 12/22 Gluconate Complex IV 1300 Sodium Chloride 100 ML Furosemide 40 MG 7:30 AM, & 4:30 PM 12/20 0730 AC 12/28 PO 0641 Heparin Sodium 6,225 UNIT BOLUS ONE 12/28 0350 DC 12/28 (Porcine) IV 12/28 0351 0403 Heparin Sodium 25,000 UNIT Q24H 12/25 1000 AC 12/27 (Porcine) IV 1836 Sodium Chloride 500 ML Hydromorphone HCl 2 MG Q4P PRN 12/22 1030 AC 12/28 IV 0837 Melatonin 5 MG AT BEDTIME 12/26 0215 AC 12/27 PO 2214 Multivitamins 1 TAB DAILY 12/20 1000 AC 12/27 PO 1828 Oxycodone HCl 15 MG Q6 PRN 12/19 1700 AC 12/28 PO 0641 Paricalcitol 2 MCG MoWeFr 12/20 1653 AC 12/24 IV 1700 Polyethylene Glycol 17 GM DAILY 12/20 1000 AC 12/24 PO 1855 Prednisone 10 MG DAILY 12/20 1000 AC 12/27 PO 1828 Senna 187 MG AT BEDTIME 12/19 2200 AC 12/27 PO 2215 Sertraline HCl 100 MG DAILY 12/20 1000 AC 12/27 PO 1829 Sevelamer HCl 2,400 MG TIDAC 12/19 1700 AC 12/28 PO 0849 Tiotropium [place] 1 PUF DAILY 12/20 1000 AC 12/27 INH 1005 Warfarin Sodium 5 MG COUMADIN 1700 ONE 12/27 1700 CAN PO 12/27 1701 Laboratory Tests 12/28/16 0625: Anion Gap 7, Estimated GFR 15 L, BUN/Creatinine Ratio 13.9, PT 25.1 H, INR 2.41 H, CBC w Diff NO MAN DIFF REQ, RBC 2.40 L, MCV 91.8, MCH 31.1 H, RDW 15.5 H, MPV 9.5, Gran % 88.2 H, Lymphocytes % 5.1 L, Monocytes % 6.4, Eosinophils % 0.1, Basophils % 0.2, Absolute Granulocytes 11.9 H, Absolute Lymphocytes 0.7 L, Absolute Monocytes 0.9 H, Absolute Eosinophils 0, Absolute Basophils 0, PUBS MCHC 33.8 12/28/16 0235: APTT 40 H 12/27/16 1645: CBC w Diff NO MAN DIFF REQ, RBC 2.95 L, MCV 91.3, MCH 30.6, RDW 15.8 H, MPV 8.5, Gran % 87.6 H, Lymphocytes % 5.0 L, Monocytes % 6.7, Eosinophils % 0.5, Basophils % 0.2, Absolute Granulocytes 14.4 H, Absolute Lymphocytes 0.8 L, Absolute Monocytes 1.1 H, Absolute Eosinophils 0.1, Absolute Basophils 0, PUBS MCHC 33.5 12/27/16 1400: Anion Gap 8, Estimated GFR 7 L, BUN/Creatinine Ratio 13.0, Prealbumin 15.5 L, PT 23.5 H, INR 2.26 H, APTT 67 H, CBC w Diff NO MAN DIFF REQ, RBC 2.09 L, MCV 92.7, MCH 31.2 H, RDW 16.5 H, MPV 9.4, Gran % 86.3 H, Lymphocytes % 5.7 L, Monocytes % 7.0, Eosinophils % 0.9, Basophils % 0.1, Absolute Granulocytes 12.6 H, Absolute Lymphocytes 0.8 L, Absolute Monocytes 1.0 H, Absolute Eosinophils 0.1, Absolute Basophils 0, PUBS MCHC 33.6 Vital Signs Date Time Temp Pulse Resp B/P Pulse O2 O2 Flow FiO2 Ox Delivery Rate 12/28 802 98 Nasal 3.0L Cannula 12/28 745 98.3 77 20 104/54 98 Nasal 3.0L Cannula
--- NOTE | 2016-12-28 12:59 | PN- Housestaff ---
Subjective Follow-up For: Surgical hematoma with active drainage s/p IMHS post op anemia ESRD Subjective: seen and examined patient, continues to complain of left thigh pain. Does not feel the swelling is worsening. Review of Systems Constitutional: Denies: chills, diaphoresis, fever, malaise, weakness, unexplained weight loss. Cardiovascular: Denies: chest pain, edema, orthopena, palpitations, peripheral edema, syncope. Respiratory: Denies: cough, hemoptysis, orthopnea, short of breath, sputum production, stridor, wheezing. Objective Last 24 Hrs of Vital Signs/I&O Vital Signs Date Time Temp Pulse Resp B/P Pulse O2 O2 Flow FiO2 Ox Delivery Rate 12/28 1950 98 Nasal 3.0L Cannula 12/28 1600 97 Nasal 3.0L Cannula 12/28 1545 98.3 88 20 110/86 97 12/28 0803 98 Nasal 3.0L Cannula 12/28 0800 Nasal 3.0L Cannula 12/28 0746 98.3 77 20 104/54 98 Nasal 3.0L Cannula 12/28 0000 Nasal 3.0L Cannula 12/27 2215 74 130/58 12/27 2200 98.0 74 16 130/58 96 Nasal 3.0L Cannula Intake & Output 12/28 1600 12/28 0800 12/28 0000 Intake Total 720 300 875 Output Total 300 2000 Balance 420 300 -1125 Intake, IV 250 275 Intake, Oral 720 50 600 Output, 2000 Dialysate Output, Urine 300 Physical Exam General Appearance: Alert, Oriented X3, Cooperative, No Acute Distress Cardiovascular: Regular Rate, Normal S1, Normal S2 Lungs: Normal Air Movement Abdomen: Soft Extremities: left thigh swelling Current Medications: Current Medications Sig/Tripp Start time Last Medication Dose Route Stop Time Status Admin Acetaminophen 650 MG Q6P PRN 12/19 1700 AC PO Albuterol Sulfate 3 ML TID 12/23 2199 AC 12/28 INH 1950 Albuterol Sulfate 2 PUF Q4-6 PRN PRN 12/19 170 AC INH Amlodipine Besylate 10 MG AT BEDTIME 12/19 2199 AC 12/27 PO 2215 Bisacodyl 5 MG AT BEDTIME 12/19 2199 AC 12/27 PO 2214 Budesonide/ 2 PUF BID 12/19 2199 AC 12/28 Formoterol Fumarate INH 1036 Cholecalciferol 1,000 IU DAILY 12/20 1000 AC 12/28 PO 1036 Diltiazem HCl 120 MG DAILY 12/20 1000 AC 12/28 PO 1036 Epoetin [place] 4,000 UNIT MoWeFr 12/20 1653 AC 12/24 IV 1700 Ferric Sodium 125 MG QWED@1200 12/22 1200 AC 12/22 Gluconate Complex IV 1300 Sodium Chloride 100 ML Furosemide 40 MG 7:30 AM, & 4:30 PM 12/20 0730 AC 12/28 PO 1704 Heparin Sodium 25,000 UNIT .STK-MED ONE 12/28 1031 DC (Porcine) IV 12/28 1032 Heparin Sodium 6,225 UNIT BOLUS ONE 12/28 0350 DC 12/28 (Porcine) IV 12/28 0351 0403 Heparin Sodium 25,000 UNIT Q24H 12/25 1000 AC 12/27 (Porcine) IV 1836 Sodium Chloride 500 ML Hydromorphone HCl 2 MG Q4P PRN 12/22 1030 AC 12/28 IV 1704 Magnesium Hydroxide 30 ML ONE ONE 12/28 1330 DC 12/28 PO 12/28 1331 1426 Melatonin 5 MG AT BEDTIME 12/26 0215 AC 12/27 PO 2214 Multivitamins 1 TAB DAILY 12/20 1000 AC 12/28 PO 1036 Oxycodone HCl 15 MG Q6 PRN 12/19 1700 AC 12/28 PO 0641 Paricalcitol 2 MCG MoWeFr 12/20 1653 AC 12/24 IV 1700 Patient Medication 1 ED .STK-MED ONE 12/28 1359 DC Teaching ED 12/28 1400 Polyethylene Glycol 17 GM DAILY 12/20 1000 AC 12/24 PO 1855 Prednisone 10 MG DAILY 12/20 1000 AC 12/28 PO 1036 Senna 187 MG AT BEDTIME 12/19 2200 AC 12/27 PO 2215 Sertraline HCl 100 MG DAILY 12/20 1000 AC 12/28 PO 1036 Sevelamer HCl 2,400 MG TIDAC 12/19 1700 AC 12/28 PO 1704 Tiotropium [place] 1 PUF DAILY 12/20 1000 AC 12/28 INH 1036 Warfarin Sodium 4 MG COUMADIN 1700 ONE 12/28 1700 DC 12/28 PO 12/28 1701 1704 Last 24 Hrs of Lab/Thien Results Last 24 Hrs of Labs/Mics: Laboratory Tests 12/28/16 1050: APTT 96 H 12/28/16 0625: Anion Gap 7, Estimated GFR 15 L, BUN/Creatinine Ratio 13.9, PT 25.1 H, INR 2.41 H, CBC w Diff NO MAN DIFF REQ, RBC 2.40 L, MCV 91.8, MCH 31.1 H, RDW 15.5 H, MPV 9.5, Gran % 88.2 H, Lymphocytes % 5.1 L, Monocytes % 6.4, Eosinophils % 0.1, Basophils % 0.2, Absolute Granulocytes 11.9 H, Absolute Lymphocytes 0.7 L, Absolute Monocytes 0.9 H, Absolute Eosinophils 0, Absolute Basophils 0, PUBS MCHC 33.8 12/28/16 0235: APTT 40 H Assessment/Plan Assessment: 66 y/o woman with PMHx of ESRD on HD(MWF),atrial fibrillation on warfarin, mitral stenosis s/p mechanical valve replacement initially admitted for L hip intertrochanteric failure 2/2 mechanical fall, now POD #9 s/p L hip IMHS, complicated by ABLA 2/2 hematoma at the surgical site while on bridging anticoagulation. #Supratherapeutic INR (resolved): - INR goal is 2.5-3.5 given mechanical mitral valve. * Cardiology following. Appreciate their recs. * IV heparin for anticoagulation was dose with 4 mg coumadin today * patient did no require a proline as she had adequate access #ABLA:. * H/H 7.5/22.0 s/p 5 units of PRBC, currently hemodynamically stable * repeat ct scan showed 2 hematoma, surgica aware. * Continue to monitor H/H and transfuse as needed to keep Hgb > 8. # L hip intertrochanteric fracture: POD #8 s/p L hip IMHS. * will need STR # ESRD: Secondary to presumed hypertensive nephrosclerosis. * Nephrology following. Appreciate their recs. * Continue Epogen 4000 units IV and Zemplar 2 mcg IV three times per week with HD. * Continue Nephrocaps tab PO daily and Sevelamer 2400 mg PO TIDAC. Diet: Renal Dialysis Diet DVT PPx: IV heparin CODE: DNR/DNI Problem List: 1. COPD 2. ESRD (end stage renal disease) on dialysis 3. H/O mitral valve replacement with mechanical valve 4. Hematoma of left hip Pain Ratin Pain Location: left thigh Pain Goal: Pain 4 or less Pain Plan: current regimen Tomorrow's Labs & Rationales: cbc, [email or web address]
[2016-12-28 14:08] LABS: PTT 96 SEC (25-37)
--- NOTE | 2016-12-28 14:15 | PN- Orthopedic ---
Subjective Subjective: Called by resident to eval for increased lateral thigh hematoma seen on CT scan of abdomen and pelvis. Patient evaluated at bedside, she complains of thigh swelling. She has no neurologic symptoms of the lower extremities. She states that her wound has continued to lose clear fluid. She has no worsening pain Objective Vital Signs and I&Os Vital Signs Date Time Temp Pulse Resp B/P Pulse O2 O2 Flow FiO2 Ox Delivery Rate 12/28 802 98 Nasal 3.0L Cannula 12/29 799 Nasal 3.0L Cannula 12/28 0646 98.3 77 20 104/54 98 Nasal 3.0L Cannula 12/28 0000 Nasal 3.0L Cannula 12/27 2215 74 130/58 12/27 2200 98.0 74 16 130/58 96 Nasal 3.0L Cannula 12/27 1900 99 Nasal 3.0L Cannula 12/27 1600 Nasal 3.0L Cannula Intake & Output 12/28 0812/28 0000 12/27 1600 12/27 0800 12/27 0000 Intake Total 300 875 320 300 875 Output Total 1999 25 200 Balance 300 -1125 295 300 675 Intake, IV 250 275 275 Intake, Oral 50 600 320 300 600 Number 1 1 Bowel Movements Output, 1999 Dialysate Output, Urine 25 200 Patient 183 lb Weight Physical Exam: Well-developed well-nourished no apparent distress. Looks older than stated age , sitting comfortably in chair. HEENT: Atraumatic, extraocular motion intact Neck: Supple, no lymphadenopathy Back: Nontender Respiratory: No respiratory distress Extremities: Left lower extremity with moderate thigh swelling and moderate hematoma is noted posterior lateral and lateral thigh region. The wound has mild marginal erythema and is leaking mostly clear serosanguineous fluid, moderate amount. The thigh is soft, nontender, it is not tense. There are no signs of compartment syndrome. She is neurovascularly intact distally. She has no calf pain or tenderness bilaterally. Neuro: Alert and oriented x3 Psych: Mood affect normal, normal memory normal judgment. Skin: Warm and dry, no rash on exposed skin Results Last 48 Hours of Labs: Laboratory Tests 12/28 12/28 12/28 1050 0625 0235 Chemistry Sodium (137 - 145 mmol/L) 134 L Potassium (3.5 - 5.1 mmol/L) 4.5 Chloride (98 - 107 mmol/L) 104 Carbon Dioxide (22 - 30 mmol/L) 23 Anion Gap (5 - 16) 7 BUN (7 - 17 mg/dL) 43 H Creatinine (0.5 - 1.0 mg/dL) 3.1 H Estimated GFR (>60 ml/min) 15 L BUN/Creatinine Ratio (7 - 25 %) 13.9 Coagulation PT (9.4 - 12.5 SEC) 25.1 H INR (0.90 - 1.19) 2.41 H APTT (25 - 37 SEC) 96 H 40 H Hematology CBC w Diff NO MAN DIFF REQ WBC (4.8 - 10.8 /CUMM) 13.5 H RBC (4.20 - 5.40 /CUMM) 2.40 L Hgb (12.0 - 16.0 G/DL) 7.5 L Hct (37 - 47 %) 22.0 L MCV (81.0 - 99.0 FL) 91.8 MCH (27.0 - 31.0 PG) 31.1 H RDW (11.5 - 14.5 %) 15.5 H Plt Count (130 - 400 /CUMM) 197 MPV (7.4 - 10.4 FL) 9.5 Gran % (42.2 - 75.2 %) 88.2 H Lymphocytes % (20.5 - 51.1 %) 5.1 L Monocytes % (1.7 - 9.3 %) 6.4 Eosinophils % (0 - 5 %) 0.1 Basophils % (0.0 - 2.0 %) 0.2 Absolute Granulocytes (1.4 - 6.5 /CUMM) 11.9 H Absolute Lymphocytes (1.2 - 3.4 /CUMM) 0.7 L Absolute Monocytes (0.10 - 0.60 /CUMM) 0.9 H Absolute Eosinophils (0.0 - 0.7 /CUMM) 0 Absolute Basophils (0.0 - 0.2 /CUMM) 0 PUBS MCHC (33.0 - 37.0 G/DL) 33.8 03/06 03/06 1645 1400 Chemistry Sodium (137 - 145 mmol/L) 132 L Potassium (3.5 - 5.1 mmol/L) 4.7 Chloride (98 - 107 mmol/L) 101 Carbon Dioxide (22 - 30 mmol/L) 22 Anion Gap (5 - 16) 8 BUN (7 - 17 mg/dL) 74 H Creatinine (0.5 - 1.0 mg/dL) 5.7 *H Estimated GFR (>60 ml/min) 7 L BUN/Creatinine Ratio (7 - 25 %) 13.0 Prealbumin (17.6 - 36.0 mg/dL) 15.5 L Coagulation PT (9.4 - 12.5 SEC) 23.5 H INR (0.90 - 1.19) 2.26 H APTT (25 - 37 SEC) 67 H Hematology CBC w Diff NO MAN DIFF REQ NO MAN DIFF REQ WBC (4.8 - 10.8 /CUMM) 16.4 H 14.6 H RBC (4.20 - 5.40 /CUMM) 2.95 L 2.09 L Hgb (12.0 - 16.0 G/DL) 9.0 L 6.5 *L Hct (37 - 47 %) 27.0 L 19.4 *L MCV (81.0 - 99.0 FL) 91.3 92.7 MCH (27.0 - 31.0 PG) 30.6 31.2 H RDW (11.5 - 14.5 %) 15.8 H 16.5 H Plt Count (130 - 400 /CUMM) 239 227 MPV (7.4 - 10.4 FL) 8.5 9.4 Gran % (42.2 - 75.2 %) 87.6 H 86.3 H Lymphocytes % (20.5 - 51.1 %) 5.0 L 5.7 L Monocytes % (1.7 - 9.3 %) 6.7 7.0 Eosinophils % (0 - 5 %) 0.5 0.9 Basophils % (0.0 - 2.0 %) 0.2 0.1 Absolute Granulocytes (1.4 - 6.5 /CUMM) 14.4 H 12.6 H Absolute Lymphocytes (1.2 - 3.4 /CUMM) 0.8 L 0.8 L Absolute Monocytes (0.10 - 0.60 /CUMM) 1.1 H 1.0 H Absolute Eosinophils (0.0 - 0.7 /CUMM) 0.1 0.1 Absolute Basophils (0.0 - 0.2 /CUMM) 0 0 PUBS MCHC (33.0 - 37.0 G/DL) 33.5 33.6 12/27 12/26 0400 1826 Coagulation PT Cancelled INR Cancelled APTT (25 - 37 SEC) 63 H Hematology CBC w Diff MAN DIFF ORDERED WBC (4.8 - 10.8 /CUMM) 18.6 H RBC (4.20 - 5.40 /CUMM) 2.54 L Hgb (12.0 - 16.0 G/DL) 7.8 L Hct (37 - 47 %) 23.6 L MCV (81.0 - 99.0 FL) 93.1 MCH (27.0 - 31.0 PG) 30.6 RDW (11.5 - 14.5 %) 16.1 H Plt Count (130 - 400 /CUMM) 261 MPV (7.4 - 10.4 FL) 8.8 Gran % (42.2 - 75.2 %) 92.0 H Lymphocytes % (20.5 - 51.1 %) 3.6 L Monocytes % (1.7 - 9.3 %) 4.0 Eosinophils % (0 - 5 %) 0.3 Basophils % (0.0 - 2.0 %) 0.1 Absolute Granulocytes (1.4 - 6.5 /CUMM) 17.1 H Segmented Neutrophils (42.2 - 75.2 %) 87 H Band Neutrophils (0.0 - 5.0 %) 4 Absolute Lymphocytes (1.2 - 3.4 /CUMM) 0.7 L Lymphocytes (20.5 - 51.1 %) 7 L Monocytes (1.7 - 9.3 %) 2 Absolute Monocytes (0.10 - 0.60 /CUMM) 0.7 H Absolute Eosinophils (0.0 - 0.7 /CUMM) 0.1 Absolute Basophils (0.0 - 0.2 /CUMM) 0 Platelet Estimate (ADEQUATE) ADEQUATE Polychromasia 1+ Hypochromic-Microcytic 1+ Poikilocytosis 1+ Basophilic Stippling RARE Anisocytosis 1+ Microcytic Cells 1+ Macrocytic Cells 1+ Rudy Cells FEW Elliptocytes FEW PUBS MCHC (33.0 - 37.0 G/DL) 32.9 L Recent Imaging Studies: CT abdomen and pelvis : The soft tissue hematoma along the incision tract at the lateral aspect of the gluteus medius measures 5.7 x 3.9 x 7.6 cm (transverse by AP by [email or web address]) not significantly changed from the prior study by my measurement. There is surrounding soft tissue edema. There is a additional hematoma distal to this which is increased in size from the prior study, occurring at the site of the incision for the gamma nail placement. This multilocular collection measures roughly 5.2 x 3.7 x 4 cm. The inferior margin is not included on this study. Previously, this measured 2 x 2.6 x 3 cm. Assessment/Plan Assessment/Plan Postop day 9 status post intramedullary nailing of the left femur secondary to left hip intertrochanteric fracture. -[address] scan, first hematoma has unchanged, second hematoma which is more distal is slightly larger than previous CT scan from one week ago although was not completely visualized. Her hematoma has developed secondary to anticoagulation. She is getting transfused as needed. Recommend DEDRICK hose stockings and Meek wrap depressions to the thigh and hip region which was applied by myself at the bedside. While laying in bed she can lay onto her left side which will put pressure on the area and stop any further bleeding. There is no compartment syndrome and there is no need for surgical intervention at this time. The hematoma will eventually resolve and reassurance was given to the patient. Core Measures/Miscellaneous Venous Thromboembolism VTE Risk Factors: Age > 40, Surgery VTE Contraindications: No Contraindications VTE Diagnosis: No VTE Type: NONE VTE Confirmed by (Test): NONE Beta Daija Is Beta Daija a Home Med? Yes If Yes, Was This Ordered Today? Yes Antibiotics Is Patient on Antibiotics? No
[2016-12-28 15:45] VITALS: BP 110/86
--- NOTE | 2016-12-28 19:21 | NUR ---
DSG NOTED TO BE SATURATED WITH SS DRAINAGE. BAILEY WRAP SATURATED WELL. DSG CHANGED WITH XERO, TELFA, FLUFF, AND HEAVY DRAINAGE ABD DSG. BAILEY WRAP ATTEMPTED TO REPLACE. SURGICAL PA VERNON PAGENeal AND INFORMED THAT BAILEY WRAP IS NOT ON PROPERLY BUT DSG CHANGED. AUGUSTO BLANC ON 2NB INFORMED WELL. PT TRANSFERRED TO [facility] WITH ALL BELONGINGS AND MEDS.
[2016-12-28 22:00] VITALS: BP 118/47
[2016-12-28 22:44] LABS: PTT 83 SEC (25-37)
[2016-12-29 07:09] VITALS: BP 109/45
--- NOTE | 2016-12-29 07:40 | PN- Housestaff ---
Subjective Follow-up For: Surgical hematoma with active drainage s/p IMHS post op anemia ESRD Complaints: pain scale (0-10) Subjective: I saw and examined the patient today morning She is lying on the bed, reports pain in the left thigh. Otherwise no overnight events. Review of Systems Constitutional: Reports: see HPI. Musculoskeletal: Reports: joint pain, joint swelling, muscle pain, muscle stiffness. Comments: ROS negative except the above. Objective Last 24 Hrs of Vital Signs/I&O Vital Signs Date Time Temp Pulse Resp B/P Pulse O2 O2 Flow FiO2 Ox Delivery Rate 12/29 708 97.3 70 20 109/45 98 Nasal 3.0L Cannula 12/29 0000 Nasal 3.0L Cannula 12/28 2232 120/60 12/28 2200 97.3 71 20 118/47 97 Nasal 3.0L Cannula 12/28 1950 98 Nasal 3.0L Cannula 12/28 1600 97 Nasal 3.0L Cannula 12/28 1545 98.3 88 20 110/86 97 12/28 0803 98 Nasal 3.0L Cannula 12/28 0800 Nasal 3.0L Cannula 12/28 0746 98.3 77 20 104/54 98 Nasal 3.0L Cannula Intake & Output 12/29 0812/29 0000 12/28 1600 Intake Total 345 720 Output Total 150 300 Balance 195 420 Intake, IV 105 Intake, Oral 240 720 Output, Urine 150 300 Patient 83.064 kg Weight Physical Exam General Appearance: Alert, Oriented X3, Cooperative Skin: No Breakdown, significant bruising over the left thigh. HEENT: Atraumatic, PERRLA Neck: Supple Cardiovascular: Normal S1, Normal S2, irregualarly irregular Lungs: Normal Air Movement Abdomen: Normal Bowel Sounds, Soft, No Tenderness Neurological: Normal Speech, Sensation Intact Extremities: No Clubbing, No Cyanosis, edema present bilaterally Vascular: Normal Pulses Current Medications: Current Medications Sig/Tripp Start time Last Medication Dose Route Stop Time Status Admin Acetaminophen 650 MG Q6P PRN 12/19 170 AC PO Albuterol Sulfate 3 ML TID 12/23 2199 AC 12/29 INH 0835 Albuterol Sulfate 2 PUF Q4-6 PRN PRN 12/19 170 AC INH Amlodipine Besylate 10 MG AT BEDTIME 12/19 2199 AC 12/28 PO 2232 Bisacodyl 5 MG AT BEDTIME 12/19 2199 AC 12/28 PO 2231 Budesonide/ 2 PUF BID 12/19 2200 AC 12/29 Formoterol Fumarate INH 0944 Cholecalciferol 1,000 IU DAILY 12/20 1000 AC 12/29 PO 0943 Diltiazem HCl 120 MG DAILY 12/20 1000 AC 12/29 PO 0942 Epoetin [place] 4,000 UNIT MoWeFr 12/20 1653 AC 12/24 IV 1700 Ferric Sodium 125 MG QWED@1300 08 1300 AC Gluconate Complex IV Sodium Chloride 100 ML Ferric Sodium 125 MG QWED@1200 12/22 1200 DC 12/22 Gluconate Complex IV 1300 Sodium Chloride 100 ML Furosemide 40 MG 7:30 AM, & 4:30 PM 12/20 0730 AC 12/29 PO 0648 Heparin Sodium 25,000 UNIT Q24H 12/25 1000 DC 12/29 (Porcine) IV 0007 Sodium Chloride 500 ML Hydromorphone HCl 4 MG ONCE ONE 12/29 1345 DC 12/29 PO 12/29 1346 1357 Hydromorphone HCl 2 MG Q4P PRN 12/29 1315 AC IV Hydromorphone HCl 2 MG Q4P PRN 12/22 1030 DC 12/29 IV 0757 Melatonin 5 MG AT BEDTIME 12/26 0215 AC 12/28 PO 2231 Multivitamins 1 TAB DAILY 12/20 1000 AC 12/29 PO 0942 Oxycodone HCl 15 MG Q6 PRN 12/19 1700 AC 12/29 PO 0943 Paricalcitol 2 MCG MoWeFr 12/20 1653 AC 12/24 IV 1700 Polyethylene Glycol 17 GM DAILY 12/20 1000 AC 12/24 PO 1855 Prednisone 10 MG DAILY 12/20 1000 AC 12/29 PO 0942 Senna 187 MG AT BEDTIME 12/19 2200 AC 12/28 PO 2231 Sertraline HCl 100 MG DAILY 12/20 1000 AC 12/29 PO 0942 Sevelamer HCl 2,400 MG TIDAC 12/19 1700 AC 12/29 PO 0648 Tiotropium [place] 1 PUF DAILY 12/20 1000 AC 12/29 INH 0945 Warfarin Sodium 4 MG COUMADIN 1700 ONE 12/28 1700 DC 12/28 PO 12/28 1701 1704 Last 24 Hrs of Lab/Thien Results Last 24 Hrs of Labs/Mics: Laboratory Tests 12/29/16 1200: Anion Gap 10, Estimated GFR 10 L, BUN/Creatinine Ratio 13.1, Glucose 105 H, Calcium 9.2, Phosphorus 4.8 H, Magnesium 2.0, Albumin 2.8 L, CBC w Diff MAN DIFF ORDERED, RBC 2.66 L, MCV 92.1, MCH 30.5, RDW 16.1 H, MPV 8.4, Gran % 88.7 H, Lymphocytes % 4.8 L, Monocytes % 5.9, Eosinophils % 0.6, Basophils % 0 L, Absolute Granulocytes 12.2 H, Segmented Neutrophils 84 H, Band Neutrophils 1, Absolute Lymphocytes 0.7 L, Lymphocytes 9 L, Monocytes 6, Absolute Monocytes 0.8 H, Absolute Eosinophils 0.1, Absolute Basophils 0, Platelet Estimate ADEQUATE, Hypochromic-Microcytic 1+, Poikilocytosis 1+, Anisocytosis 1+, PUBS MCHC 33.1, Fld Total RBCs Counted 100 12/29/16 1132: PT 30.4 H, INR 2.93 H, APTT 32 12/29/16 1132: APTT Cancelled 12/29/16 0915: Anion Gap 10, Estimated GFR 10 L, BUN/Creatinine Ratio 13.2, Magnesium 2.0, APTT 87 H, CBC w Diff MAN DIFF ORDERED, RBC 2.65 L, MCV 91.5, MCH 30.1, RDW 16.1 H, MPV 8.5, Gran % 85.5 H, Lymphocytes % 7.3 L, Monocytes % 6.3, Eosinophils % 0.8, Basophils % 0.1, Absolute Granulocytes 11.8 H, Segmented Neutrophils 85 H, Band Neutrophils 1, Absolute Lymphocytes 1.0 L, Lymphocytes 6 L, Monocytes 6, Absolute Monocytes 0.9 H, Eosinophils 1, Absolute Eosinophils 0.1, Absolute Basophils 0, Myelocytes 1 H, Platelet Estimate ADEQUATE, Hypochromic-Microcytic 1+, Poikilocytosis 1+, Anisocytosis 1+, PUBS MCHC 32.9 L 12/28/16 2145: APTT 83 H Lines/Diet/Fluids Lines: peripheral lines Assessment/Plan Assessment: 66 y/o woman with PMHx of ESRD on HD(MWF),atrial fibrillation on warfarin, mitral stenosis s/p mechanical valve replacement initially admitted for L hip intertrochanteric failure 2/2 mechanical fall, now POD #10 s/p L hip IMHS, complicated by ABLA 2/2 hematoma at the surgical site while on bridging anticoagulation. #Supratherapeutic INR (resolved): - INR goal is 2.5-3.5 given mechanical mitral valve. * Cardiology following. Appreciate their recs. * Discontinued on IV heparin today and redosed with warfarin 3mg today - today INR 2.9 * patient did no require a proline as she had adequate access #ABLA:. * H/H 8.1/24 s/p 5 units of PRBC, currently hemodynamically stable * repeat ct scan showed 2 hematoma, surgica aware. * Recommend DEDRICK hose stockings and Meek wrap depressions to the thigh * As there is no compartment syndrome, there is no need for surgical intervention at this time * Continue to monitor H/H and transfuse as needed to keep Hgb > 8. # L hip intertrochanteric fracture: POD #10 s/p L hip IMHS. * will need STR # ESRD: Secondary to presumed hypertensive nephrosclerosis. * Nephrology following. Appreciate their recs. * Continue Epogen 4000 units IV and Zemplar 2 mcg IV three times per week with HD. * Continue Nephrocaps tab PO daily and Sevelamer 2400 mg PO TIDAC. * Underwent dialysis today. Diet: Renal Dialysis Diet DVT PPx: IV heparin CODE: DNR/DNI Problem List: 1. rheumatic heart disease 2. mitral valve repair 3. H/O mitral valve replacement with mechanical valve 4. Hematoma, postoperative 5. Acute blood loss anemia 6. Intertrochanteric fracture of left hip Pain Ratin Pain Location: left hip Pain Goal: Pain 4 or less Pain Plan: Dilaudid Tomorrow's Labs & Rationales: cbc to monitor H&H bep to monitor kidney function
[2016-12-29 09:58] LABS: ABSOLUTE BASOPHIL COUNT 0 /CUMM (0.0-0.2); ABSOLUTE EOSINOPHIL COUNT 0.1 /CUMM (0.0-0.7); ABSOLUTE GRANULOCYTE CT 11.8 /CUMM (1.4-6.5); ABSOLUTE MONOCYTE COUNT 0.9 /CUMM (0.10-0.60); BASOPHIL % 0.1 % (0.0-2.0); EOSINOPHIL % 0.8 % (0-5); GRANULOCYTE % 85.5 % (42.2-75.2); HEMATOCRIT 24.3 % (37-47); MEAN CORPUSCULAR HGB 30.1 PG (27.0-31.0); MEAN CORPUSCULAR HGB CONC 32.9 G/DL (33.0-37.0); MEAN CORPUSCULAR VOLUME 91.5 FL (81.0-99.0); MEAN PLATELET VOLUME 8.5 FL (7.4-10.4); PLATELET COUNT 220 /CUMM (130-400); RBC DISTRIBUTION WIDTH 16.1 % (11.5-14.5); RED BLOOD CELL CT 2.65 /CUMM (4.20-5.40); WHITE BLOOD CELL COUNT 13.9 /CUMM (4.8-10.8)
[2016-12-29 10:00] LABS: PTT 87 SEC (25-37)
--- NOTE | 2016-12-29 11:45 | PN- Nephrology ---
See Addendum Assessment/Plan Assessment: ESRD - Dialysis today - starting to get volume expanded. 83kg. Her dry weight is 75.5kg. Now that she has stabilized, will need to start more aggressively taking off fluid. Anemia - 2/2 bleeding but then also getting Epogen with dialysis. 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 Suggestion: -Dialysis today - 3-4L as tolerated -Cont Epogen -Cont Zemplar -AC as per Cards/Ortho Please call [phone] with ?'s Subjective Subjective: Hg 7.5->8.0 - last transfusion on 12/27 CT on 12/27 with second hematoma Doing OK Objective Vital Signs and I&Os Vital Signs Date Time Temp Pulse Resp B/P Pulse O2 O2 Flow FiO2 Ox Delivery Rate 12/29 834 98 Nasal 3.0L Cannula 12/29 08 98 Nasal 2.0L Cannula 12/29 07 97.3 70 20 109/45 98 Nasal 3.0L Cannula 12/29 0000 Nasal 3.0L Cannula 12/28 2232 120/60 12/28 2200 97.3 71 20 118/47 97 Nasal 3.0L Cannula 12/28 1950 98 Nasal 3.0L Cannula 12/28 1600 97 Nasal 3.0L Cannula 12/28 1545 98.3 88 20 110/86 97 Intake & Output 12/29 1600 12/29 0400 12/28 1600 12/28 0400 12/27 1600 12/27 0400 Intake Total 134 963 4155 875 620 875 Output Total 200 569 646 4402 25 200 Balance 564 195 720 -1125 595 675 Intake, IV 284 105 250 275 275 Intake, Oral 480 240 770 600 620 600 Number 1 1 Bowel Movements Output, 1999 Dialysate Output, Urine 200 150 300 25 200 Patient 183 lb 183 lb Weight Physical Exam: Gen - weak appearing HEENT - supple CV - RRR Chest - clear Abd - soft Ext - 1+ edema Neuro - AOX3 Current Medications: Current Medications Sig/Tripp Start time Last Medication Dose Route Stop Time Status Admin Acetaminophen 650 MG Q6P PRN 12/19 1700 AC PO Albuterol Sulfate 3 ML TID 12/23 2200 AC /08 INH 0835 Albuterol Sulfate 2 PUF Q4-6 PRN PRN 12/19 1700 AC INH Amlodipine Besylate 10 MG AT BEDTIME 12/19 2200 AC 12/28 PO 2232 Bisacodyl 5 MG AT BEDTIME 12/19 2200 AC 12/28 PO 2231 Budesonide/ 2 PUF BID 12/19 2200 AC 12/29 Formoterol Fumarate INH 0944 Cholecalciferol 1,000 IU DAILY 12/20 1000 AC 12/29 PO 0943 Diltiazem HCl 120 MG DAILY 12/20 1000 AC 12/29 PO 0942 Epoetin Jerson 4,000 UNIT MoWeFr 12/20 1653 AC 12/24 IV 1700 Ferric Sodium 125 MG QWED@1200 12/22 1200 DC 12/22 Gluconate Complex IV 1300 Sodium Chloride 100 ML Furosemide 40 MG 7:30 AM, & 4:30 PM 12/20 0730 AC 12/29 PO 0648 Heparin Sodium 25,000 UNIT Q24H 12/25 1000 DC 12/29 (Porcine) IV 0007 Sodium Chloride 500 ML Hydromorphone HCl 2 MG Q4P PRN 12/22 1030 DC 12/29 IV 0757 Magnesium Hydroxide 30 ML ONE ONE 12/28 1330 DC 12/28 PO 12/28 1331 1426 Melatonin 5 MG AT BEDTIME 12/26 0215 AC 12/28 PO 2231 Multivitamins 1 TAB DAILY 12/20 1000 AC 12/29 PO 0942 Oxycodone HCl 15 MG Q6 PRN 12/19 1700 AC 12/29 PO 0943 Paricalcitol 2 MCG MoWeFr 12/20 1653 AC 12/24 IV 1700 Patient Medication 1 ED .STK-MED ONE 12/28 1359 GA Teaching ED 12/28 1400 Polyethylene Glycol 17 GM DAILY 12/20 1000 AC 12/24 PO 1855 Prednisone 10 MG DAILY 12/20 1000 AC 12/29 PO 0942 Senna 187 MG AT BEDTIME 12/19 2200 AC 12/28 PO 2231 Sertraline HCl 100 MG DAILY 12/20 1000 AC 12/29 PO 0942 Sevelamer HCl 2,400 MG TIDAC 12/19 1700 AC 12/29 PO 0648 Tiotropium [place] 1 PUF DAILY 12/20 1000 AC 12/29 INH 0945 Warfarin Sodium 4 MG COUMADIN 1700 ONE 12/28 1700 DC 12/28 PO 12/28 1701 1704 Results Pertinent Lab Results: Laboratory Tests 12/29 12/29 12/29 1132 1132 0915 Chemistry Sodium (137 - 145 mmol/L) Pending 133 L Potassium (3.5 - 5.1 mmol/L) Pending 4.2 Chloride (98 - 107 mmol/L) Pending 101 Carbon Dioxide (22 - 30 mmol/L) Pending 22 Anion Gap (5 - 16) Pending 10 BUN (7 - 17 mg/dL) Pending 58 H Creatinine (0.5 - 1.0 mg/dL) Pending 4.4 H Estimated GFR (>60 ml/min) 10 L BUN/Creatinine Ratio (7 - 25 %) Pending 13.2 Glucose Pending Calcium Pending Phosphorus Pending Magnesium (1.6 - 2.3 mg/dL) Pending 2.0 Albumin Pending Coagulation PT Pending INR Pending APTT (25 - 37 SEC) Pending 87 H Hematology CBC w Diff Pending MAN DIFF ORDERED WBC (4.8 - 10.8 /CUMM) Pending 13.9 H RBC (4.20 - 5.40 /CUMM) Pending 2.65 L Hgb (12.0 - 16.0 G/DL) Pending 8.0 L Hct (37 - 47 %) Pending 24.3 L MCV (81.0 - 99.0 FL) Pending 91.5 MCH (27.0 - 31.0 PG) Pending 30.1 RDW (11.5 - 14.5 %) Pending 16.1 H Plt Count (130 - 400 /CUMM) Pending 220 MPV (7.4 - 10.4 FL) Pending 8.5 Gran % (42.2 - 75.2 %) 85.5 H Lymphocytes % (20.5 - 51.1 %) 7.3 L Monocytes % (1.7 - 9.3 %) 6.3 Eosinophils % (0 - 5 %) 0.8 Basophils % (0.0 - 2.0 %) 0.1 Absolute Granulocytes (1.4 - 6.5 /CUMM) 11.8 H Segmented Neutrophils (42.2 - 75.2 %) 85 H Band Neutrophils (0.0 - 5.0 %) 1 Absolute Lymphocytes (1.2 - 3.4 /CUMM) 1.0 L Lymphocytes (20.5 - 51.1 %) 6 L Monocytes (1.7 - 9.3 %) 6 Absolute Monocytes (0.10 - 0.60 /CUMM) 0.9 H Eosinophils (0 - 5.0 %) 1 Absolute Eosinophils (0.0 - 0.7 /CUMM) 0.1 Absolute Basophils (0.0 - 0.2 /CUMM) 0 Myelocytes (0 - 0 %) 1 H Platelet Estimate (ADEQUATE) ADEQUATE Hypochromic-Microcytic 1+ Poikilocytosis 1+ Anisocytosis 1+ PUBS MCHC (33.0 - 37.0 G/DL) Pending 32.9 L 12/28 12/28 12/28 12/28 2145 1050 0625 0235 Chemistry Sodium (137 - 145 mmol/L) 134 L Potassium (3.5 - 5.1 mmol/L) 4.5 Chloride (98 - 107 mmol/L) 104 Carbon Dioxide (22 - 30 mmol/L) 23 Anion Gap (5 - 16) 7 BUN (7 - 17 mg/dL) 43 H Creatinine (0.5 - 1.0 mg/dL) 3.1 H Estimated GFR (>60 ml/min) 15 L BUN/Creatinine Ratio (7 - 25 %) 13.9 Coagulation PT (9.4 - 12.5 SEC) 25.1 H INR (0.90 - 1.19) 2.41 H APTT (25 - 37 SEC) 83 H 96 H 40 H Hematology CBC w Diff NO MAN DIFF REQ WBC (4.8 - 10.8 /CUMM) 13.5 H RBC (4.20 - 5.40 /CUMM) 2.40 L Hgb (12.0 - 16.0 G/DL) 7.5 L Hct (37 - 47 %) 22.0 L MCV (81.0 - 99.0 FL) 91.8 MCH (27.0 - 31.0 PG) 31.1 H RDW (11.5 - 14.5 %) 15.5 H Plt Count (130 - 400 /CUMM) 197 MPV (7.4 - 10.4 FL) 9.5 Gran % (42.2 - 75.2 %) 88.2 H Lymphocytes % (20.5 - 51.1 %) 5.1 L Monocytes % (1.7 - 9.3 %) 6.4 Eosinophils % (0 - 5 %) 0.1 Basophils % (0.0 - 2.0 %) 0.2 Absolute Granulocytes (1.4 - 6.5 /CUMM) 11.9 H Absolute Lymphocytes (1.2 - 3.4 /CUMM) 0.7 L Absolute Monocytes (0.10 - 0.60 /CUMM) 0.9 H Absolute Eosinophils (0.0 - 0.7 /CUMM) 0 Absolute Basophils (0.0 - 0.2 /CUMM) 0 PUBS MCHC (33.0 - 37.0 G/DL) 33.8 03/06 03/06 1645 1400 Chemistry Sodium (137 - 145 mmol/L) 132 L Potassium (3.5 - 5.1 mmol/L) 4.7 Chloride (98 - 107 mmol/L) 101 Carbon Dioxide (22 - 30 mmol/L) 22 Anion Gap (5 - 16) 8 BUN (7 - 17 mg/dL) 74 H Creatinine (0.5 - 1.0 mg/dL) 5.7 *H Estimated GFR (>60 ml/min) 7 L BUN/Creatinine Ratio (7 - 25 %) 13.0 Prealbumin (17.6 - 36.0 mg/dL) 15.5 L Coagulation PT (9.4 - 12.5 SEC) 23.5 H INR (0.90 - 1.19) 2.26 H APTT (25 - 37 SEC) 67 H Hematology CBC w Diff NO MAN DIFF REQ NO MAN DIFF REQ WBC (4.8 - 10.8 /CUMM) 16.4 H 14.6 H RBC (4.20 - 5.40 /CUMM) 2.95 L 2.09 L Hgb (12.0 - 16.0 G/DL) 9.0 L 6.5 *L Hct (37 - 47 %) 27.0 L 19.4 *L MCV (81.0 - 99.0 FL) 91.3 92.7 MCH (27.0 - 31.0 PG) 30.6 31.2 H RDW (11.5 - 14.5 %) 15.8 H 16.5 H Plt Count (130 - 400 /CUMM) 239 227 MPV (7.4 - 10.4 FL) 8.5 9.4 Gran % (42.2 - 75.2 %) 87.6 H 86.3 H Lymphocytes % (20.5 - 51.1 %) 5.0 L 5.7 L Monocytes % (1.7 - 9.3 %) 6.7 7.0 Eosinophils % (0 - 5 %) 0.5 0.9 Basophils % (0.0 - 2.0 %) 0.2 0.1 Absolute Granulocytes (1.4 - 6.5 /CUMM) 14.4 H 12.6 H Absolute Lymphocytes (1.2 - 3.4 /CUMM) 0.8 L 0.8 L Absolute Monocytes (0.10 - 0.60 /CUMM) 1.1 H 1.0 H Absolute Eosinophils (0.0 - 0.7 /CUMM) 0.1 0.1 Absolute Basophils (0.0 - 0.2 /CUMM) 0 0 PUBS MCHC (33.0 - 37.0 G/DL) 33.5 33.6 03/ 03/05 0400 1826 Coagulation PT Cancelled INR Cancelled APTT (25 - 37 SEC) 63 H Hematology CBC w Diff MAN DIFF ORDERED WBC (4.8 - 10.8 /CUMM) 18.6 H RBC (4.20 - 5.40 /CUMM) 2.54 L Hgb (12.0 - 16.0 G/DL) 7.8 L Hct (37 - 47 %) 23.6 L MCV (81.0 - 99.0 FL) 93.1 MCH (27.0 - 31.0 PG) 30.6 RDW (11.5 - 14.5 %) 16.1 H Plt Count (130 - 400 /CUMM) 261 MPV (7.4 - 10.4 FL) 8.8 Gran % (42.2 - 75.2 %) 92.0 H Lymphocytes % (20.5 - 51.1 %) 3.6 L Monocytes % (1.7 - 9.3 %) 4.0 Eosinophils % (0 - 5 %) 0.3 Basophils % (0.0 - 2.0 %) 0.1 Absolute Granulocytes (1.4 - 6.5 /CUMM) 17.1 H Segmented Neutrophils (42.2 - 75.2 %) 87 H Band Neutrophils (0.0 - 5.0 %) 4 Absolute Lymphocytes (1.2 - 3.4 /CUMM) 0.7 L Lymphocytes (20.5 - 51.1 %) 7 L Monocytes (1.7 - 9.3 %) 2 Absolute Monocytes (0.10 - 0.60 /CUMM) 0.7 H Absolute Eosinophils (0.0 - 0.7 /CUMM) 0.1 Absolute Basophils (0.0 - 0.2 /CUMM) 0 Platelet Estimate (ADEQUATE) ADEQUATE Polychromasia 1+ Hypochromic-Microcytic 1+ Poikilocytosis 1+ Basophilic [place]ipp[place] RARE Anisocytosis 1+ Microcytic Cells 1+ Macrocytic Cells 1+ [place] Cells FEW Elliptocytes FEW PUBS MCHC (33.0 - 37.0 G/DL) 32.9 L Imaging/Other Studies: EXAM TYPE: CAT - CT ABD & PELVIS W/O IV CONTRAS EXAMINATION: CT ABDOMEN AND PELVIS WITHOUT CONTRAST CLINICAL INFORMATION: Evaluate for increase in size hematoma. COMPARISON: 12/21/2016 and 04/19/2016 TECHNIQUE: Multidetector volumetric imaging was performed from the superior aspect of the liver through the pubic symphysis. Sagittal and coronal reformatted images were obtained on the technologist's workstation. DLP: 391.5 mGy-cm FINDINGS: LUNG BASES: Marked centrilobular emphysema is present in the lung bases. Heart is enlarged. Pacemaker leads are present. There is a 0.7 cm soft tissue nodule in the left lower lobe which is unchanged from the prior study but new from 04/19/2016. The more oblong 3 x 1 cm band like soft tissue density is unchanged from prior and new from 2016 as well. Atelectasis is present at the right lung base. LIVER, GALLBLADDER, AND BILIARY TREE: The liver is normal in size, shape, and attenuation. No focal hepatic lesion or biliary ductal dilatation is present. Numerous dense dependent layering gallbladder stones are again noted. No bladder wall thickening or surrounding inflammatory changes. No biliary ductal dilatation. PANCREAS: Unremarkable. SPLEEN: Lobular contour of the spleen and peripheral calcifications are unchanged and may correspond to changes of remote trauma. The appearance is unchanged from prior. ADRENAL GLANDS: Unremarkable. KIDNEYS AND URETERS: Bilateral renal atrophy is again noted. Multiple cysts of the left kidney are not appreciably changed as compared to prior, the largest of these measures 3.2 cm in greatest diameter at the upper pole of the left kidney. Punctate calcifications are again seen within the wall of the upper pole cyst. No significant perinephric stranding. No hydronephrosis or hydroureter. BLADDER: Unremarkable. GASTROINTESTINAL TRACT: Stomach, small bowel, and colon are normal in caliber. No bowel wall thickening. Moderate to large volume of stool is present throughout the colon. No intraperitoneal free air or free fluid. ABDOMINAL WALL: Small fat-containing right inguinal hernia. No bowel involvement. LYMPH NODES: Normal. VASCULAR: Calcific atherosclerosis is present in the abdominal aorta and iliac arteries. No aneurysmal dilatation. PELVIC VISCERA: Unremarkable OSSEOUS STRUCTURES: Postsurgical changes of left intertrochanteric fracture fixation with a Gamma nail and intramedullary kim are again noted. Degenerative disc disease and facet arthropathy are present in the lumbar spine. No new fractures. PELVIC MUSCULATURE/SOFT TISSUE: The soft tissue hematoma along the incision tract at the lateral aspect of the gluteus medius measures 5.7 x 3.9 x 7.6 cm (transverse by AP by craniocaudal) not significantly changed from the prior study by my measurement. There is surrounding soft tissue edema. There is a additional hematoma distal to this which is increased in size from the prior study, occurring at the site of the incision for the gamma nail placement. This multilocular collection measures roughly 5.2 x 3.7 x 4 cm. The inferior margin is not included on this study. Previously, this measured 2 x 2.6 x 3 cm. IMPRESSION: 1. No significant change in the size of the hematoma the lateral aspect of the gluteal musculature. There is a second, partially imaged hematoma distal to this at the lateral aspect of the proximal femoral shaft which has increased in size from the prior study, now measuring 5.2 x 3.7 x 4 cm. This region is incompletely imaged on this study. For follow-up of these hematomas, a CT of the thigh would be more optimal for covering the area of interest than a CT abdomen pelvis. 2. Two nodular opacities at the left lower lobe which are new from March 2016 and warrant follow-up to ensure resolution. According to the UPDATED 2017 Fleischner Society recommendations, the advised follow-up imaging for multiple solid nodules, the largest measuring 6 mm or greater, is CT at 3-6 months, then at 18-24 months. 3. Cholelithiasis. 4. Bilateral renal atrophy with left renal cysts.
[2016-12-29 12:00] LABS: ABSOLUTE BASOPHIL COUNT 0 /CUMM (0.0-0.2); ABSOLUTE EOSINOPHIL COUNT 0.1 /CUMM (0.0-0.7); ABSOLUTE GRANULOCYTE CT 12.2 /CUMM (1.4-6.5); ABSOLUTE LYMPH COUNT 0.7 /CUMM (1.2-3.4); ABSOLUTE MONOCYTE COUNT 0.8 /CUMM (0.10-0.60); BASOPHIL % 0 % (0.0-2.0); EOSINOPHIL % 0.6 % (0-5); GRANULOCYTE % 88.7 % (42.2-75.2); HEMATOCRIT 24.5 % (37-47); MEAN CORPUSCULAR HGB 30.5 PG (27.0-31.0); MEAN CORPUSCULAR HGB CONC 33.1 G/DL (33.0-37.0); MEAN CORPUSCULAR VOLUME 92.1 FL (81.0-99.0); MEAN PLATELET VOLUME 8.4 FL (7.4-10.4); PLATELET COUNT 231 /CUMM (130-400); RBC DISTRIBUTION WIDTH 16.1 % (11.5-14.5); RED BLOOD CELL CT 2.66 /CUMM (4.20-5.40); WHITE BLOOD CELL COUNT 13.8 /CUMM (4.8-10.8)
[2016-12-29 12:10] LABS: PT 30.4 SEC (9.4-12.5); PTT 32 SEC (25-37)
--- NOTE | 2016-12-29 13:27 | PN- Att Addend ---
Attending Addendum Attending Brief Note Patient in comfortable in bed color is improved vital signs are stable. Still loosing aliquid the surgical area and also still has the hematoma. Continuing monitoring H&H continue hemodialysis restarted the Coumadin. After the dialysis if stable start disposition plans for short-term rehabilitation. Current Medications Sig/Tripp Start time Last Medication Dose Route Stop Time Status Admin Acetaminophen 650 MG Q6P PRN 12/19 1700 AC PO Albuterol Sulfate 3 ML TID 12/23 2199 AC 12/29 INH 0835 Albuterol Sulfate 2 PUF Q4-6 PRN PRN 12/19 170 AC INH Amlodipine Besylate 10 MG AT BEDTIME 12/19 220 AC 12/28 PO 2232 Bisacodyl 5 MG AT BEDTIME 12/19 220 AC 12/28 PO 2231 Budesonide/ 2 PUF BID 12/19 220 AC 12/29 Formoterol Fumarate INH 0944 Cholecalciferol 1,000 IU DAILY 12/20 1000 AC 12/29 PO 0943 Diltiazem HCl 120 MG DAILY 12/20 1000 AC 12/29 PO 0942 Epoetin [place] 4,000 UNIT MoWeFr 12/20 1653 AC 12/24 IV 1700 Ferric Sodium 125 MG QWED@1300 /08 1300 AC Gluconate Complex IV Sodium Chloride 100 ML Ferric Sodium 125 MG QWED@1200 12/22 1200 DC 12/22 Gluconate Complex IV 1300 Sodium Chloride 100 ML Furosemide 40 MG 7:30 AM, & 4:30 PM 12/20 0730 AC 12/29 PO 0648 Heparin Sodium 25,000 UNIT Q24H 12/25 1000 DC 12/29 (Porcine) IV 0007 Sodium Chloride 500 ML Hydromorphone HCl 2 MG Q4P PRN 12/29 1315 AC IV Hydromorphone HCl 2 MG Q4P PRN 12/22 1030 DC 12/29 IV 0757 Magnesium Hydroxide 30 ML ONE ONE 12/28 1330 DC 12/28 PO 12/28 1331 1426 Melatonin 5 MG AT BEDTIME 12/26 0215 AC 12/28 PO 2231 Multivitamins 1 TAB DAILY 12/20 1000 AC 12/29 PO 0942 Oxycodone HCl 15 MG Q6 PRN 12/19 1700 AC 12/29 PO 0943 Paricalcitol 2 MCG MoWeFr 12/20 1653 AC 12/24 IV 1700 Patient Medication 1 ED .STK-MED ONE 12/28 1359 GA Teaching ED 12/28 1400 Polyethylene Glycol 17 GM DAILY 12/20 1000 AC 12/24 PO 1855 Prednisone 10 MG DAILY 12/20 1000 AC 12/29 PO 0942 Senna 187 MG AT BEDTIME 12/19 2200 AC 12/28 PO 2231 Sertraline HCl 100 MG DAILY 12/20 1000 AC 12/29 PO 0942 Sevelamer HCl 2,400 MG TIDAC 12/19 1700 AC 12/29 PO 0648 Tiotropium [place] 1 PUF DAILY 12/20 1000 AC 12/29 INH 0945 Warfarin Sodium 4 MG COUMADIN 1700 ONE 12/28 1700 DC 12/28 PO 12/28 1701 1704 Laboratory Tests 12/29/16 1200: Anion Gap 10, Estimated GFR 10 L, BUN/Creatinine Ratio 13.1, Glucose 105 H, Calcium 9.2, Phosphorus 4.8 H, Magnesium 2.0, Albumin 2.8 L, CBC w Diff MAN DIFF ORDERED, RBC 2.66 L, MCV 92.1, MCH 30.5, RDW 16.1 H, MPV 8.4, Gran % 88.7 H, Lymphocytes % 4.8 L, Monocytes % 5.9, Eosinophils % 0.6, Basophils % 0 L, Absolute Granulocytes 12.2 H, Segmented Neutrophils 84 H, Band Neutrophils 1, Absolute Lymphocytes 0.7 L, Lymphocytes 9 L, Monocytes 6, Absolute Monocytes 0.8 H, Absolute Eosinophils 0.1, Absolute Basophils 0, Platelet Estimate ADEQUATE, Hypochromic-Microcytic 1+, Poikilocytosis 1+, Anisocytosis 1+, PUBS MCHC 33.1, Fld Total RBCs Counted 100 12/29/16 1132: PT 30.4 H, INR 2.93 H, APTT 32 12/29/16 1132: APTT Cancelled 12/29/16 0915: Anion Gap 10, Estimated GFR 10 L, BUN/Creatinine Ratio 13.2, Magnesium 2.0, APTT 87 H, CBC w Diff MAN DIFF ORDERED, RBC 2.65 L, MCV 91.5, MCH 30.1, RDW 16.1 H, MPV 8.5, Gran % 85.5 H, Lymphocytes % 7.3 L, Monocytes % 6.3, Eosinophils % 0.8, Basophils % 0.1, Absolute Granulocytes 11.8 H, Segmented Neutrophils 85 H, Band Neutrophils 1, Absolute Lymphocytes 1.0 L, Lymphocytes 6 L, Monocytes 6, Absolute Monocytes 0.9 H, Eosinophils 1, Absolute Eosinophils 0.1, Absolute Basophils 0, Myelocytes 1 H, Platelet Estimate ADEQUATE, Hypochromic-Microcytic 1+, Poikilocytosis 1+, Anisocytosis 1+, PUBS MCHC 32.9 L 12/28/16 2145: APTT 83 H Vital Signs Date Time Temp Pulse Resp B/P Pulse O2 O2 Flow FiO2 Ox Delivery Rate 12/29 834 98 Nasal 3.0L Cannula 12/30 799 98 Nasal 2.0L Cannula 12/29 708 97.3 70 20 109/45 98 Nasal 3.0L Cannula
[2016-12-29 22:31] VITALS: BP 110/54
--- NOTE | 2016-12-30 06:48 | PN- Housestaff ---
Subjective Follow-up For: left Intertrochanteric fracture Supratherpeutic INR ESRD on hemodialysis Subjective: I saw and examined the patient today morning, she is feeling terrible, reports 8 /10 thrombing pain. Didnt had her bowel movement so far, requesting a dulcolax suppository. Otherwise no concerns. Review of Systems Constitutional: Reports: see HPI, malaise, weakness. Comments: Hematoma in the left hip region is very tight. ROS negative otherwise Objective Last 24 Hrs of Vital Signs/I&O Vital Signs Date Time Temp Pulse Resp B/P Pulse O2 O2 Flow FiO2 Ox Delivery Rate 12/30 0000 98 Nasal 3.0L Cannula 12/29 2231 98.1 75 20 110/54 98 12/29 2153 70 109/45 12/29 1845 99 Nasal 3.0L Cannula 12/29 1600 Nasal 3.0L Cannula 12/29 0835 98 Nasal 3.0L Cannula 12/29 08 98 Nasal 2.0L Cannula 12/29 0709 97.3 70 20 109/45 98 Nasal 3.0L Cannula Intake & Output 12/30 0800 12/30 0000 12/29 1600 Intake Total 200 200 Output Total Balance 200 200 Intake, Oral 200 200 Patient 81.76 kg Weight Physical Exam General Appearance: Alert, Oriented X3, Cooperative, Moderate Distress Skin: No Breakdown, bruising over the left hip region HEENT: Atraumatic, PERRLA, EOMI Neck: Supple, No JVD, No thryomegaly Cardiovascular: Normal S1, Normal S2, irregularly irregular Lungs: Normal Air Movement, decreased breath sounds at the bases Abdomen: Normal Bowel Sounds, Soft, No Tenderness Neurological: Normal Speech, Sensation Intact, Cranial Nerves 3-12 NL Extremities: No Clubbing, No Cyanosis, significant edema present. tightness and bruising over the left thigh. Current Medications: Current Medications Sig/Tripp Start time Last Medication Dose Route Stop Time Status Admin Acetaminophen 650 MG Q6P PRN 12/19 170 AC PO Albuterol Sulfate 3 ML TID 12/23 2199 AC 12/29 INH 1845 Albuterol Sulfate 2 PUF Q4-6 PRN PRN 12/19 170 AC INH Amlodipine Besylate 10 MG AT BEDTIME 12/19 2199 AC 12/29 PO 2153 Bisacodyl 5 MG DAILY 12/29 1448 DC PO Bisacodyl 5 MG AT BEDTIME 12/19 2200 AC 12/29 PO 2153 Budesonide/ 2 PUF BID 12/19 2200 AC 12/29 Formoterol Fumarate INH 2153 Cholecalciferol 1,000 IU DAILY 12/20 1000 AC 12/29 PO 0943 Diltiazem HCl 120 MG DAILY 12/20 1000 AC 12/29 PO 0942 Epoetin [place] 4,000 UNIT MoWeFr 12/20 1653 AC 12/24 IV 1700 Ferric Sodium 125 MG QWED@1300 08 1300 AC Gluconate Complex IV Sodium Chloride 100 ML Ferric Sodium 125 MG QWED@1200 12/22 1200 DC 12/22 Gluconate Complex IV 1300 Sodium Chloride 100 ML Furosemide 40 MG 7:30 AM, & 4:30 PM 12/20 0730 AC 12/29 PO 1628 Heparin Sodium 25,000 UNIT Q24H 12/25 1000 DC 12/29 (Porcine) IV 0007 Sodium Chloride 500 ML Hydromorphone HCl 4 MG ONCE ONE 12/29 1345 DC 12/29 PO 12/29 1346 1357 Hydromorphone HCl 2 MG Q4P PRN 12/29 1315 AC 12/30 IV 0545 Hydromorphone HCl 2 MG Q4P PRN 12/22 1030 DC 12/29 IV 0757 Melatonin 5 MG AT BEDTIME 12/26 0215 AC 12/29 PO 2154 Multivitamins 1 TAB DAILY 12/20 1000 AC 12/29 PO 0942 Oxycodone HCl 15 MG Q6 PRN 12/19 1700 AC 12/29 PO 0943 Paricalcitol 2 MCG MoWeFr 12/20 1653 AC 12/24 IV 1700 Polyethylene Glycol 17 GM DAILY 12/20 1000 AC 12/24 PO 1855 Prednisone 10 MG DAILY 12/20 1000 AC 12/29 PO 0942 Senna 187 MG AT BEDTIME 12/19 2200 AC 12/29 PO 2153 Senna/Docusate Sodium 2 TAB DAILY 12/29 1451 AC PO Sertraline HCl 100 MG DAILY 12/20 1000 AC 12/29 PO 0942 Sevelamer HCl 2,400 MG TIDAC 12/19 1700 AC 12/29 PO 1628 Tiotropium [place] 1 PUF DAILY 12/20 1000 AC 12/29 INH 0945 Warfarin Sodium 3 MG COUMADIN 1700 ONE 031914 DC 12/29 PO 12/29 Last 24 Hrs of Lab/Thien Results Last 24 Hrs of Labs/Mics: Laboratory Tests 12/29/16 1200: Anion Gap 10, Estimated GFR 10 L, BUN/Creatinine Ratio 13.1, Glucose 105 H, Calcium 9.2, Phosphorus 4.8 H, Magnesium 2.0, Albumin 2.8 L, CBC w Diff MAN DIFF ORDERED, RBC 2.66 L, MCV 92.1, MCH 30.5, RDW 16.1 H, MPV 8.4, Gran % 88.7 H, Lymphocytes % 4.8 L, Monocytes % 5.9, Eosinophils % 0.6, Basophils % 0 L, Absolute Granulocytes 12.2 H, Segmented Neutrophils 84 H, Band Neutrophils 1, Absolute Lymphocytes 0.7 L, Lymphocytes 9 L, Monocytes 6, Absolute Monocytes 0.8 H, Absolute Eosinophils 0.1, Absolute Basophils 0, Platelet Estimate ADEQUATE, Hypochromic-Microcytic 1+, Poikilocytosis 1+, Anisocytosis 1+, PUBS MCHC 33.1, Fld Total RBCs Counted 100 12/29/16 1132: PT 30.4 H, INR 2.93 H, APTT 32 12/29/16 1132: APTT Cancelled 12/29/16 0915: Anion Gap 10, Estimated GFR 10 L, BUN/Creatinine Ratio 13.2, Magnesium 2.0, APTT 87 H, CBC w Diff MAN DIFF ORDERED, RBC 2.65 L, MCV 91.5, MCH 30.1, RDW 16.1 H, MPV 8.5, Gran % 85.5 H, Lymphocytes % 7.3 L, Monocytes % 6.3, Eosinophils % 0.8, Basophils % 0.1, Absolute Granulocytes 11.8 H, Segmented Neutrophils 85 H, Band Neutrophils 1, Absolute Lymphocytes 1.0 L, Lymphocytes 6 L, Monocytes 6, Absolute Monocytes 0.9 H, Eosinophils 1, Absolute Eosinophils 0.1, Absolute Basophils 0, Myelocytes 1 H, Platelet Estimate ADEQUATE, Hypochromic-Microcytic 1+, Poikilocytosis 1+, Anisocytosis 1+, PUBS MCHC 32.9 L Assessment/Plan Assessment: 66 y/o woman with PMHx of ESRD on HD(MWF),atrial fibrillation on warfarin, mitral stenosis s/p mechanical valve replacement initially admitted for L hip intertrochanteric failure 2/2 mechanical fall, now POD #10 s/p L hip IMHS, complicated by ABLA 2/2 hematoma at the surgical site while on bridging anticoagulation. #Supratherapeutic INR (resolved): - INR goal is 2.5-3.5 given mechanical mitral valve. * Cardiology following. Appreciate their recs. * INR is 4.4 so no dosing of warfarin. * patient did no require a proline as she had adequate access #ABLA:. * H/H 8.1/24 s/p 5 units of PRBC, currently hemodynamically stable * repeat ct scan showed 2 hematoma, surgica aware. * Recommend DEDRICK hose stockings and Meek wrap depressions to the thigh * As there is no compartment syndrome, there is no need for surgical intervention at this time * Continue to monitor H/H and transfuse as needed to keep Hgb > 8. * Her white count is on the higher side at baseline, however it increased from 13 to 16 today. # L hip intertrochanteric fracture: POD #11 s/p L hip IMHS. * will need STR # ESRD: Secondary to presumed hypertensive nephrosclerosis. * Nephrology following. Appreciate their recs. * Continue Epogen 4000 units IV and Zemplar 2 mcg IV three times per week with HD. * Continue Nephrocaps tab PO daily and Sevelamer 2400 mg PO TIDAC. * Underwent dialysis today. Diet: Renal Dialysis Diet DVT PPx: IV heparin CODE: DNR/DNI Problem List: 1. Paroxysmal atrial fibrillation 2. rheumatic heart disease 3. CHF (congestive heart failure) 4. INR (international normal ratio) abnormal 5. Weakness 6. Hematoma 7. H/O mitral valve replacement with mechanical valve 8. Depression 9. Hematoma of left hip 10. ESRD (end stage renal disease) on dialysis Pain Ratin Pain Location: left hip Pain Goal: Pain 4 or less Pain Plan: oxycodone 15mg Q6 PRN Tomorrow's Labs & Rationales: CBC to monitor H&H in the setting of hematoma BEP to monitor renal funciton in the setting of ESRD on HD patient PT to monitor INR
[2016-12-30 07:35] VITALS: BP 112/50
--- NOTE | 2016-12-30 09:33 | PN- Pulmonary ---
Subjective HPI/Critical Care Issues: Still in pain Oozing from the hip area She is lying on the bed, reports pain in the left thigh. Otherwise no overnight events. Review of Systems Constitutional: Reports: see HPI. Musculoskeletal: Reports: joint pain, joint swelling, muscle pain, muscle stiffness. Comments: ROS negative except the above. Physical Exam: Well-developed well-nourished no apparent distress. Looks older than stated age , sitting comfortably in chair. HEENT: Atraumatic, extraocular motion intact Neck: Supple, no lymphadenopathy Back: Nontender Respiratory: No respiratory distress Extremities: Left lower extremity with moderate thigh swelling and moderate hematoma is noted posterior lateral and lateral thigh region. The wound has mild marginal erythema and is leaking mostly clear serosanguineous fluid, moderate amount. The thigh is soft, nontender, it is not tense. There are no signs of compartment syndrome. She is neurovascularly intact distally. She has no calf pain or tenderness bilaterally. Neuro: Alert and oriented x3 Psych: Mood affect normal, normal memory normal judgment. Skin: Warm and dry, no rash on exposed skin Objective Current Medications: Current Medications Sig/Tripp Start time Last Medication Dose Route Stop Time Status Admin Acetaminophen 650 MG Q6P PRN 12/19 1700 AC PO Albuterol Sulfate 3 ML TID 12/23 2200 AC 12/30 INH 0803 Albuterol Sulfate 2 PUF Q4-6 PRN PRN 12/19 1700 AC INH Amlodipine Besylate 10 MG AT BEDTIME 12/19 2200 AC 12/29 PO 2153 Bisacodyl 10 MG ONCE ONE 12/30 0815 DC NV 12/30 0816 Bisacodyl 5 MG DAILY 12/29 1448 DC PO Bisacodyl 5 MG AT BEDTIME 12/19 2200 AC 12/29 PO 2153 Budesonide/ 2 PUF BID 12/19 2200 AC 12/29 Formoterol Fumarate INH 2153 Cholecalciferol 1,000 IU DAILY 12/20 1000 AC 12/29 PO 0943 Diltiazem HCl 120 MG DAILY 12/20 1000 AC 12/29 PO 0942 Epoetin Jerson 4,000 UNIT MoWeFr 12/20 1653 AC 12/24 IV 1700 Ferric Sodium 125 MG QWED@1300 12/29 1300 AC Gluconate Complex IV Sodium Chloride 100 ML Ferric Sodium 125 MG QWED@1200 12/22 1200 DC 12/22 Gluconate Complex IV 1300 Sodium Chloride 100 ML Furosemide 40 MG 7:30 AM, & 4:30 PM 12/20 0730 AC 12/30 PO 0654 Hydromorphone HCl 4 MG ONCE ONE 12/29 1345 DC 12/29 PO 12/29 1346 1357 Hydromorphone HCl 2 MG Q4P PRN 12/29 1315 AC 12/30 IV 0545 Hydromorphone HCl 2 MG Q4P PRN 12/22 1030 DC 12/29 IV 0757 Melatonin 5 MG AT BEDTIME 12/26 0215 AC 12/29 PO 2154 Multivitamins 1 TAB DAILY 12/20 1000 AC 12/29 PO 0942 Oxycodone HCl 15 MG Q6 PRN 12/19 1700 AC 12/29 PO 0943 Paricalcitol 2 MCG MoWeFr 12/20 1653 AC 12/24 IV 1700 Polyethylene Glycol 17 GM DAILY 12/20 1000 AC 12/24 PO 1855 Prednisone 10 MG DAILY 12/20 1000 AC 12/29 PO 0942 Senna 187 MG AT BEDTIME 12/19 2200 AC 12/29 PO 2153 Senna/Docusate Sodium 2 TAB DAILY 12/29 1451 AC PO Sertraline HCl 100 MG DAILY 12/20 1000 AC 12/29 PO 0942 Sevelamer HCl 2,400 MG TIDAC 12/19 1700 AC 12/30 PO 0824 Tiotropium Woodruff 1 PUF DAILY 12/20 1000 AC 12/29 INH 0945 Warfarin Sodium 3 MG COUMADIN 1700 ONE 12/29 1914 DC 12/29 PO 12/29 Laboratory Tests 12/29 12/29 12/29 1200 1132 1132 Chemistry Sodium (137 - 145 mmol/L) 133 L Potassium (3.5 - 5.1 mmol/L) 4.6 Chloride (98 - 107 mmol/L) 101 Carbon Dioxide (22 - 30 mmol/L) 22 Anion Gap (5 - 16) 10 BUN (7 - 17 mg/dL) 59 H Creatinine (0.5 - 1.0 mg/dL) 4.5 H Estimated GFR (>60 ml/min) 10 L BUN/Creatinine Ratio (7 - 25 %) 13.1 Glucose (65 - 99 mg/dL) 105 H Calcium (8.4 - 10.2 mg/dL) 9.2 Phosphorus (2.5 - 4.5 mg/dL) 4.8 H Magnesium (1.6 - 2.3 mg/dL) 2.0 Albumin (3.5 - 5.0 g/dL) 2.8 L Coagulation PT (9.4 - 12.5 SEC) 30.4 H INR (0.90 - 1.19) 2.93 H APTT (25 - 37 SEC) 32 Cancelled Hematology CBC w Diff MAN DIFF ORDERED WBC (4.8 - 10.8 /CUMM) 13.8 H RBC (4.20 - 5.40 /CUMM) 2.66 L Hgb (12.0 - 16.0 G/DL) 8.1 L Hct (37 - 47 %) 24.5 L MCV (81.0 - 99.0 FL) 92.1 MCH (27.0 - 31.0 PG) 30.5 RDW (11.5 - 14.5 %) 16.1 H Plt Count (130 - 400 /CUMM) 231 MPV (7.4 - 10.4 FL) 8.4 Gran % (42.2 - 75.2 %) 88.7 H Lymphocytes % (20.5 - 51.1 %) 4.8 L Monocytes % (1.7 - 9.3 %) 5.9 Eosinophils % (0 - 5 %) 0.6 Basophils % (0.0 - 2.0 %) 0 L Absolute Granulocytes (1.4 - 6.5 /CUMM) 12.2 H Segmented Neutrophils (42.2 - 75.2 %) 84 H Band Neutrophils (0.0 - 5.0 %) 1 Absolute Lymphocytes (1.2 - 3.4 /CUMM) 0.7 L Lymphocytes (20.5 - 51.1 %) 9 L Monocytes (1.7 - 9.3 %) 6 Absolute Monocytes (0.10 - 0.60 /CUMM) 0.8 H Absolute Eosinophils (0.0 - 0.7 /CUMM) 0.1 Absolute Basophils (0.0 - 0.2 /CUMM) 0 Platelet Estimate (ADEQUATE) ADEQUATE Hypochromic-Microcytic 1+ Poikilocytosis 1+ Anisocytosis 1+ PUBS MCHC (33.0 - 37.0 G/DL) 33.1 Other Body Source Fld Total RBCs Counted (%) 100 03/08 03/07 03/07 0915 2145 1050 Chemistry Sodium (137 - 145 mmol/L) 133 L Potassium (3.5 - 5.1 mmol/L) 4.2 Chloride (98 - 107 mmol/L) 101 Carbon Dioxide (22 - 30 mmol/L) 22 Anion Gap (5 - 16) 10 BUN (7 - 17 mg/dL) 58 H Creatinine (0.5 - 1.0 mg/dL) 4.4 H Estimated GFR (>60 ml/min) 10 L BUN/Creatinine Ratio (7 - 25 %) 13.2 Magnesium (1.6 - 2.3 mg/dL) 2.0 Coagulation APTT (25 - 37 SEC) 87 H 83 H 96 H Hematology CBC w Diff MAN DIFF ORDERED WBC (4.8 - 10.8 /CUMM) 13.9 H RBC (4.20 - 5.40 /CUMM) 2.65 L Hgb (12.0 - 16.0 G/DL) 8.0 L Hct (37 - 47 %) 24.3 L MCV (81.0 - 99.0 FL) 91.5 MCH (27.0 - 31.0 PG) 30.1 RDW (11.5 - 14.5 %) 16.1 H Plt Count (130 - 400 /CUMM) 220 MPV (7.4 - 10.4 FL) 8.5 Gran % (42.2 - 75.2 %) 85.5 H Lymphocytes % (20.5 - 51.1 %) 7.3 L Monocytes % (1.7 - 9.3 %) 6.3 Eosinophils % (0 - 5 %) 0.8 Basophils % (0.0 - 2.0 %) 0.1 Absolute Granulocytes (1.4 - 6.5 /CUMM) 11.8 H Segmented Neutrophils (42.2 - 75.2 %) 85 H Band Neutrophils (0.0 - 5.0 %) 1 Absolute Lymphocytes (1.2 - 3.4 /CUMM) 1.0 L Lymphocytes (20.5 - 51.1 %) 6 L Monocytes (1.7 - 9.3 %) 6 Absolute Monocytes (0.10 - 0.60 /CUMM) 0.9 H Eosinophils (0 - 5.0 %) 1 Absolute Eosinophils (0.0 - 0.7 /CUMM) 0.1 Absolute Basophils (0.0 - 0.2 /CUMM) 0 Myelocytes (0 - 0 %) 1 H Platelet Estimate (ADEQUATE) ADEQUATE Hypochromic-Microcytic 1+ Poikilocytosis 1+ Anisocytosis 1+ PUBS MCHC (33.0 - 37.0 G/DL) 32.9 L Vital Signs & I&O Last 24 Hrs of Vitals and I&O: Laboratory Tests 12/29 12/29 12/29 1200 1132 1132 Chemistry Sodium (137 - 145 mmol/L) 133 L Potassium (3.5 - 5.1 mmol/L) 4.6 Chloride (98 - 107 mmol/L) 101 Carbon Dioxide (22 - 30 mmol/L) 22 Anion Gap (5 - 16) 10 BUN (7 - 17 mg/dL) 59 H Creatinine (0.5 - 1.0 mg/dL) 4.5 H Estimated GFR (>60 ml/min) 10 L BUN/Creatinine Ratio (7 - 25 %) 13.1 Glucose (65 - 99 mg/dL) 105 H Calcium (8.4 - 10.2 mg/dL) 9.2 Phosphorus (2.5 - 4.5 mg/dL) 4.8 H Magnesium (1.6 - 2.3 mg/dL) 2.0 Albumin (3.5 - 5.0 g/dL) 2.8 L Coagulation PT (9.4 - 12.5 SEC) 30.4 H INR (0.90 - 1.19) 2.93 H APTT (25 - 37 SEC) 32 Cancelled Hematology CBC w Diff MAN DIFF ORDERED WBC (4.8 - 10.8 /CUMM) 13.8 H RBC (4.20 - 5.40 /CUMM) 2.66 L Hgb (12.0 - 16.0 G/DL) 8.1 L Hct (37 - 47 %) 24.5 L MCV (81.0 - 99.0 FL) 92.1 MCH (27.0 - 31.0 PG) 30.5 RDW (11.5 - 14.5 %) 16.1 H Plt Count (130 - 400 /CUMM) 231 MPV (7.4 - 10.4 FL) 8.4 Gran % (42.2 - 75.2 %) 88.7 H Lymphocytes % (20.5 - 51.1 %) 4.8 L Monocytes % (1.7 - 9.3 %) 5.9 Eosinophils % (0 - 5 %) 0.6 Basophils % (0.0 - 2.0 %) 0 L Absolute Granulocytes (1.4 - 6.5 /CUMM) 12.2 H Segmented Neutrophils (42.2 - 75.2 %) 84 H Band Neutrophils (0.0 - 5.0 %) 1 Absolute Lymphocytes (1.2 - 3.4 /CUMM) 0.7 L Lymphocytes (20.5 - 51.1 %) 9 L Monocytes (1.7 - 9.3 %) 6 Absolute Monocytes (0.10 - 0.60 /CUMM) 0.8 H Absolute Eosinophils (0.0 - 0.7 /CUMM) 0.1 Absolute Basophils (0.0 - 0.2 /CUMM) 0 Platelet Estimate (ADEQUATE) ADEQUATE Hypochromic-Microcytic 1+ Poikilocytosis 1+ Anisocytosis 1+ PUBS MCHC (33.0 - 37.0 G/DL) 33.1 Other Body Source Fld Total RBCs Counted (%) 100 03/08 03/07 03/07 0915 2145 1050 Chemistry Sodium (137 - 145 mmol/L) 133 L Potassium (3.5 - 5.1 mmol/L) 4.2 Chloride (98 - 107 mmol/L) 101 Carbon Dioxide (22 - 30 mmol/L) 22 Anion Gap (5 - 16) 10 BUN (7 - 17 mg/dL) 58 H Creatinine (0.5 - 1.0 mg/dL) 4.4 H Estimated GFR (>60 ml/min) 10 L BUN/Creatinine Ratio (7 - 25 %) 13.2 Magnesium (1.6 - 2.3 mg/dL) 2.0 Coagulation APTT (25 - 37 SEC) 87 H 83 H 96 H Hematology CBC w Diff MAN DIFF ORDERED WBC (4.8 - 10.8 /CUMM) 13.9 H RBC (4.20 - 5.40 /CUMM) 2.65 L Hgb (12.0 - 16.0 G/DL) 8.0 L Hct (37 - 47 %) 24.3 L MCV (81.0 - 99.0 FL) 91.5 MCH (27.0 - 31.0 PG) 30.1 RDW (11.5 - 14.5 %) 16.1 H Plt Count (130 - 400 /CUMM) 220 MPV (7.4 - 10.4 FL) 8.5 Gran % (42.2 - 75.2 %) 85.5 H Lymphocytes % (20.5 - 51.1 %) 7.3 L Monocytes % (1.7 - 9.3 %) 6.3 Eosinophils % (0 - 5 %) 0.8 Basophils % (0.0 - 2.0 %) 0.1 Absolute Granulocytes (1.4 - 6.5 /CUMM) 11.8 H Segmented Neutrophils (42.2 - 75.2 %) 85 H Band Neutrophils (0.0 - 5.0 %) 1 Absolute Lymphocytes (1.2 - 3.4 /CUMM) 1.0 L Lymphocytes (20.5 - 51.1 %) 6 L Monocytes (1.7 - 9.3 %) 6 Absolute Monocytes (0.10 - 0.60 /CUMM) 0.9 H Eosinophils (0 - 5.0 %) 1 Absolute Eosinophils (0.0 - 0.7 /CUMM) 0.1 Absolute Basophils (0.0 - 0.2 /CUMM) 0 Myelocytes (0 - 0 %) 1 H Platelet Estimate (ADEQUATE) ADEQUATE Hypochromic-Microcytic 1+ Poikilocytosis 1+ Anisocytosis 1+ PUBS MCHC (33.0 - 37.0 G/DL) 32.9 L Vital Signs Date Time Temp Pulse Resp B/P Pulse O2 O2 Flow FiO2 Ox Delivery Rate 12/30 804 97 Nasal 3.0L Cannula 12/31 799 Nasal 3.0L Cannula 12/30 07 97.8 78 20 112/50 100 12/30 0000 98 Nasal 3.0L Cannula 12/29 2231 98.1 75 20 110/54 98 12/29 2153 70 109/45 12/29 1845 99 Nasal 3.0L Cannula 12/29 1600 Nasal 3.0L Cannula Intake & Output 12/30 1600 12/30 0812/30 0000 Intake Total 100 200 Output Total 0 Balance 100 200 Intake, Oral 100 200 Output, Urine 0 Patient 180 lb Weight Impression/Plan Impression/Plan Impression/Plan: 66 y/o woman with PMHx of ESRD on HD(MWF),atrial fibrillation on warfarin, mitral stenosis s/p mechanical valve replacement initially admitted for L hip intertrochanteric failure 2/2 mechanical fall, now POD #10 s/p L hip IMHS, complicated by ABLA 2/2 hematoma at the surgical site while on bridging anticoagulation. Stil has sig oozing watch hemoglobin Surg is following ESRD with ongoing dialysis Dose coumadin to keep inr of 2.5 Will follow Pt is not stable for dc today Prob in am
--- NOTE | 2016-12-30 09:34 | NUR ---
Physical Therapy: Attempted to see pt this AM for tx. Pt polietly requesting to defer treatment until a later time as she is trying to have a BM. Will follow up later as appropriate. Thank you.
--- NOTE | 2016-12-30 09:37 | Discharge Summary ---
See Addendum Visit Information Visit Dates Admission Date: 12/17/16 Discharge Date: 01/01/17 Hospital Course Course Attending Physician: YAIR SARAH MD Primary Care Physician: TYREL LANE,YAIR Hospital Course: This is a 66-year-old lady with a past medical history significant for oxygen dependent severe COPD, former smoker for more than 40 years, minor hypertension, tinnitus post mitral valve replacement due to mitral stenosis, A. fib, end-stage renal disease on hemodialysis CHF, hypertension, presents after sustaining a mechanical fall tripping on her oxygen tube and then failing down on the left side CXR Results No pathology Imaging studies of the left hip showed mildly displaced intertrochanteric fracture of the left femur with no acute findings Hospital course: 1. Left my leg displaced intertrochanteric fracture: Patient was admitted to general medical floor. Her INR was 4.29 on admission. Given her extensive cardiac history and concern of reversing her INR, cardiology consult was obtained recommended to bridge heparin once the INR drifts down and proceed with surgery with temporally holding heparin. Patient underwent basement of intramedullary nail in the right intertrochanteric region on 12/19/2016. IV heparin drip was continued on the evening of surgery given the high risk of thrombosis with a mechanical valve with plan to transition to warfarin and patient received 3 mg of warfarin 1 day after the surgical intervention. The following day, patient had developed a large hematoma at the L gluteal, hip and proximal L thigh region as revealed by CT Scan and this was accompanied by a drop in her H/H from 9.1/28.6 to 5.9/18.1 as well as a rise in INR to 5.65. She was transfused 2 units of pRBCs during dialysis during which she had an episode of hypotension which prompted her to be transferred to the ICU for close hemodynamic monitoring. Patient underwent transfusions while she was the hospital and her vitals stabilized. Patient was transferred from ICU to telemetry floor as she had 30 beats of nonsustained ventricular tachycardia. Her telemetry remained uneventful during the rest of the telemetry course. As per cardiology she was recommended to be transferred to general medical floor safely. Surgery was closely following her during the hospital stay. They recommended to continue anticoagulation with watching for bleeding. Recommended DEDRICK hose stockings and a strep bandages to the thigh and hip region. There was no evidence of compartment syndrome noted. She had moderate swelling with moderate hematoma noted on the posterior lateral the lateral thigh regions. The wound was leaking mostly clear serosanguineous fluid and moderate amount. Per surgery the hematoma will eventually resolve Patients H/H dropped again on 12/30/09 was reevaluated by surgery and there is no need for surgical intervention or evacuation at this time. She received 1 U of PRBC a day prior to discharge. 2. Acute blood loss anemia: Secondary to surgical site hematoma which is developed while bridging anticoagulation. She received a total of 5 units during the hospital stay. Her H&H remained stable. 3. End-stage renal disease on hemodialysis: Her potassium on admission was 5.3 with a creatinine of 4.7 on presentation. Patient was seen by nephrology and underwent hemodialysis. SHe was continued Epogen 4000 units IV and Zemplar 2 mcg IV three times per week with HD and Nephrocaps tab PO daily and Sevelamer 2400 mg PO TIDAC. 4. Prominent a defibrillation: Patient has history of permanent atrial fibrillation status post AV node ablation in 2009 and placement of biventricular pacemaker placement competent by splenic past. Her rate remained controlled margins the hospital. 5. Diastolic Congestive heart failure: Patient remained stable and cardiac point of view. 6. Mechanical mitral valve replacement: Patient has history of rheumatic disease with mitral stenosis status post mechanical mitral valve replacement in February 1996. Her INR was maintained between 2.5-3.5 which is her goal INR for mechanical valves. 7. COPD on home oxygen: Stable. She was maintained on 3-2 L oxygen and was continued on her prednisone therapy 10 mg daily. She also received TRC nebulizes one in the hospital. 8. Depression and anxiety: Patient was continued on Ceftin 100 and Ativan 2 mg. Diet: Renal Dialysis DVT PPx: ALPs CODE: DNR/DNI Allergies: Coded Allergies: NO KNOWN ALLERGIES (11/26/16) Pertinent Lab Results: Laboratory Tests 12/29 12/29 12/29 1200 1132 1132 Chemistry Sodium (137 - 145 mmol/L) 133 L Potassium (3.5 - 5.1 mmol/L) 4.6 Chloride (98 - 107 mmol/L) 101 Carbon Dioxide (22 - 30 mmol/L) 22 Anion Gap (5 - 16) 10 BUN (7 - 17 mg/dL) 59 H Creatinine (0.5 - 1.0 mg/dL) 4.5 H Estimated GFR (>60 ml/min) 10 L BUN/Creatinine Ratio (7 - 25 %) 13.1 Glucose (65 - 99 mg/dL) 105 H Calcium (8.4 - 10.2 mg/dL) 9.2 Phosphorus (2.5 - 4.5 mg/dL) 4.8 H Magnesium (1.6 - 2.3 mg/dL) 2.0 Albumin (3.5 - 5.0 g/dL) 2.8 L Coagulation PT (9.4 - 12.5 SEC) 30.4 H INR (0.90 - 1.19) 2.93 H APTT (25 - 37 SEC) 32 Cancelled Hematology CBC w Diff MAN DIFF ORDERED WBC (4.8 - 10.8 /CUMM) 13.8 H RBC (4.20 - 5.40 /CUMM) 2.66 L Hgb (12.0 - 16.0 G/DL) 8.1 L Hct (37 - 47 %) 24.5 L MCV (81.0 - 99.0 FL) 92.1 MCH (27.0 - 31.0 PG) 30.5 RDW (11.5 - 14.5 %) 16.1 H Plt Count (130 - 400 /CUMM) 231 MPV (7.4 - 10.4 FL) 8.4 Gran % (42.2 - 75.2 %) 88.7 H Lymphocytes % (20.5 - 51.1 %) 4.8 L Monocytes % (1.7 - 9.3 %) 5.9 Eosinophils % (0 - 5 %) 0.6 Basophils % (0.0 - 2.0 %) 0 L Absolute Granulocytes (1.4 - 6.5 /CUMM) 12.2 H Segmented Neutrophils (42.2 - 75.2 %) 84 H Band Neutrophils (0.0 - 5.0 %) 1 Absolute Lymphocytes (1.2 - 3.4 /CUMM) 0.7 L Lymphocytes (20.5 - 51.1 %) 9 L Monocytes (1.7 - 9.3 %) 6 Absolute Monocytes (0.10 - 0.60 /CUMM) 0.8 H Absolute Eosinophils (0.0 - 0.7 /CUMM) 0.1 Absolute Basophils (0.0 - 0.2 /CUMM) 0 Platelet Estimate (ADEQUATE) ADEQUATE Hypochromic-Microcytic 1+ Poikilocytosis 1+ Anisocytosis 1+ PUBS MCHC (33.0 - 37.0 G/DL) 33.1 Other Body Source Fld Total RBCs Counted (%) 100 12/29 12/28 12/28 0915 2145 1050 Chemistry Sodium (137 - 145 mmol/L) 133 L Potassium (3.5 - 5.1 mmol/L) 4.2 Chloride (98 - 107 mmol/L) 101 Carbon Dioxide (22 - 30 mmol/L) 22 Anion Gap (5 - 16) 10 BUN (7 - 17 mg/dL) 58 H Creatinine (0.5 - 1.0 mg/dL) 4.4 H Estimated GFR (>60 ml/min) 10 L BUN/Creatinine Ratio (7 - 25 %) 13.2 Magnesium (1.6 - 2.3 mg/dL) 2.0 Coagulation APTT (25 - 37 SEC) 87 H 83 H 96 H Hematology CBC w Diff MAN DIFF ORDERED WBC (4.8 - 10.8 /CUMM) 13.9 H RBC (4.20 - 5.40 /CUMM) 2.65 L Hgb (12.0 - 16.0 G/DL) 8.0 L Hct (37 - 47 %) 24.3 L MCV (81.0 - 99.0 FL) 91.5 MCH (27.0 - 31.0 PG) 30.1 RDW (11.5 - 14.5 %) 16.1 H Plt Count (130 - 400 /CUMM) 220 MPV (7.4 - 10.4 FL) 8.5 Gran % (42.2 - 75.2 %) 85.5 H Lymphocytes % (20.5 - 51.1 %) 7.3 L Monocytes % (1.7 - 9.3 %) 6.3 Eosinophils % (0 - 5 %) 0.8 Basophils % (0.0 - 2.0 %) 0.1 Absolute Granulocytes (1.4 - 6.5 /CUMM) 11.8 H Segmented Neutrophils (42.2 - 75.2 %) 85 H Band Neutrophils (0.0 - 5.0 %) 1 Absolute Lymphocytes (1.2 - 3.4 /CUMM) 1.0 L Lymphocytes (20.5 - 51.1 %) 6 L Monocytes (1.7 - 9.3 %) 6 Absolute Monocytes (0.10 - 0.60 /CUMM) 0.9 H Eosinophils (0 - 5.0 %) 1 Absolute Eosinophils (0.0 - 0.7 /CUMM) 0.1 Absolute Basophils (0.0 - 0.2 /CUMM) 0 Myelocytes (0 - 0 %) 1 H Platelet Estimate (ADEQUATE) ADEQUATE Hypochromic-Microcytic 1+ Poikilocytosis 1+ Anisocytosis 1+ PUBS MCHC (33.0 - 37.0 G/DL) 32.9 L 12/28 12/28 0625 0235 Chemistry Sodium (137 - 145 mmol/L) 134 L Potassium (3.5 - 5.1 mmol/L) 4.5 Chloride (98 - 107 mmol/L) 104 Carbon Dioxide (22 - 30 mmol/L) 23 Anion Gap (5 - 16) 7 BUN (7 - 17 mg/dL) 43 H Creatinine (0.5 - 1.0 mg/dL) 3.1 H Estimated GFR (>60 ml/min) 15 L BUN/Creatinine Ratio (7 - 25 %) 13.9 Coagulation PT (9.4 - 12.5 SEC) 25.1 H INR (0.90 - 1.19) 2.41 H APTT (25 - 37 SEC) 40 H Hematology CBC w Diff NO MAN DIFF REQ WBC (4.8 - 10.8 /CUMM) 13.5 H RBC (4.20 - 5.40 /CUMM) 2.40 L Hgb (12.0 - 16.0 G/DL) 7.5 L Hct (37 - 47 %) 22.0 L MCV (81.0 - 99.0 FL) 91.8 MCH (27.0 - 31.0 PG) 31.1 H RDW (11.5 - 14.5 %) 15.5 H Plt Count (130 - 400 /CUMM) 197 MPV (7.4 - 10.4 FL) 9.5 Gran % (42.2 - 75.2 %) 88.2 H Lymphocytes % (20.5 - 51.1 %) 5.1 L Monocytes % (1.7 - 9.3 %) 6.4 Eosinophils % (0 - 5 %) 0.1 Basophils % (0.0 - 2.0 %) 0.2 Absolute Granulocytes (1.4 - 6.5 /CUMM) 11.9 H Absolute Lymphocytes (1.2 - 3.4 /CUMM) 0.7 L Absolute Monocytes (0.10 - 0.60 /CUMM) 0.9 H Absolute Eosinophils (0.0 - 0.7 /CUMM) 0 Absolute Basophils (0.0 - 0.2 /CUMM) 0 PUBS MCHC (33.0 - 37.0 G/DL) 33.8 03/06 03/ 1645 1400 Chemistry Sodium (137 - 145 mmol/L) 132 L Potassium (3.5 - 5.1 mmol/L) 4.7 Chloride (98 - 107 mmol/L) 101 Carbon Dioxide (22 - 30 mmol/L) 22 Anion Gap (5 - 16) 8 BUN (7 - 17 mg/dL) 74 H Creatinine (0.5 - 1.0 mg/dL) 5.7 *H Estimated GFR (>60 ml/min) 7 L BUN/Creatinine Ratio (7 - 25 %) 13.0 Prealbumin (17.6 - 36.0 mg/dL) 15.5 L Coagulation PT (9.4 - 12.5 SEC) 23.5 H INR (0.90 - 1.19) 2.26 H APTT (25 - 37 SEC) 67 H Hematology CBC w Diff NO MAN DIFF REQ NO MAN DIFF REQ WBC (4.8 - 10.8 /CUMM) 16.4 H 14.6 H RBC (4.20 - 5.40 /CUMM) 2.95 L 2.09 L Hgb (12.0 - 16.0 G/DL) 9.0 L 6.5 *L Hct (37 - 47 %) 27.0 L 19.4 *L MCV (81.0 - 99.0 FL) 91.3 92.7 MCH (27.0 - 31.0 PG) 30.6 31.2 H RDW (11.5 - 14.5 %) 15.8 H 16.5 H Plt Count (130 - 400 /CUMM) 239 227 MPV (7.4 - 10.4 FL) 8.5 9.4 Gran % (42.2 - 75.2 %) 87.6 H 86.3 H Lymphocytes % (20.5 - 51.1 %) 5.0 L 5.7 L Monocytes % (1.7 - 9.3 %) 6.7 7.0 Eosinophils % (0 - 5 %) 0.5 0.9 Basophils % (0.0 - 2.0 %) 0.2 0.1 Absolute Granulocytes (1.4 - 6.5 /CUMM) 14.4 H 12.6 H Absolute Lymphocytes (1.2 - 3.4 /CUMM) 0.8 L 0.8 L Absolute Monocytes (0.10 - 0.60 /CUMM) 1.1 H 1.0 H Absolute Eosinophils (0.0 - 0.7 /CUMM) 0.1 0.1 Absolute Basophils (0.0 - 0.2 /CUMM) 0 0 PUBS MCHC (33.0 - 37.0 G/DL) 33.5 33.6 Disposition Summary Disposition Principal Diagnosis: Left Hip intertrochanteric fracture s/p placement of IM nail Acute blood loss anemia with hematoma formation Supratheraputic INR Additional Diagnosis: Oxygen dependent severe COPD Former smoker for more than 40 years s/p mitral valve replacement due to mitral stenosis A. fib end-stage renal disease on hemodialysis CHF Hypertension Discharge Disposition: STR Discharge Instructions General Discharge Information Code Status: Do Not Resucitate/Intubat Patient's Diet: Renal dyalysis diet Patient's Activity: Assist of 2 Follow-Up Instructions/Appts: 1. Follow up with PCP in a week upon discharge 2. Follow up with surgery. Please call Dr. Vick's office for a follow up appoinment 3. Follow up with Nephrology and continue with dialysis on MWF 4. Please follow up with Cardiology and continue to monitor INR to keep with in 2.5-3.5 Medications at Discharge Discharge Medications: Continue taking these medications: Sevelamer Carbonate (Renvela) 800 MG TABLET 1 Tablet ORAL TID WM Instructions: TAKE WITH MEALS Comments: PER PT OXYCODONE HCL (Oxycodone HCl) 15 MG TABLET 1 Tablet ORAL Q4H Qty = 60 Comments: PER PT Epoetin Jerson (Procrit) 20,000 U/ML ML 7,000 Units INTRAVEN TUESDAY, TUESDAY AND TUESDAY as needed for WITH DIALYSIS Days = 30 Comments: PER PT Warfarin Sodium (Coumadin) 5 MG TABLET 0.5 Tablet ORAL DAILY Days = 29 Comments: Last Taken: 04/04/16 Time: 5:30 PM Lorazepam (Ativan) 2 MG TABLET 1 Tablet ORAL Every night as needed for ANXIETY Comments: PER PT Prednisone (Prednisone) 10 MG TABLET 1 Tablet ORAL DIRECTED Qty = 12 Instructions: TAKE 3 TABLETS FOR 2 DAYS (12/01-12/02) TAKE 2 TABLETS FOR 2 DAYS (12/03-12/04) TAKE 1 TABLET FOR 2 DAYS (12/05-12-06) Furosemide (Furosemide) 40 MG TABLET 1 Tablet ORAL TWICE DAILY Qty = 60 Sevelamer Carbonate (Renvela) 800 MG TABLET 2 Tablet ORAL THREE TIMES DAILY Qty = 270 Comments: PT STATES USUALLY CAN ONLY TAKE IT BID NOT TID SHE DOESN'T EAT ENOUGH Albuterol Sulfate (Proair Hfa) 90 MCG HFA.AER.AD 2 Puff Inhale through mouth EVERY 4-6 HOURS NEEDED as needed for COPD Amlodipine Besylate (Amlodipine Besylate) 10 MG TABLET 1 Tablet ORAL DAILY Budesonide/Formoterol Fumarate (Symbicort 160-4.5 Mcg Inhaler) 160 MCG-4.5 MCG/ ACTUATION HFA.AER.AD 2 Puff Inhale through mouth TWICE DAILY Cholecalciferol (Vitamin D3) (Vitamin D3) 1,000 UNIT CAPSULE 1 Capsule ORAL DAILY Diltiazem HCl (Diltiazem 24HR ER) 120 MG CAP.ER.24H 1 Capsule ORAL DAILY Sertraline HCl (Zoloft) 100 MG TABLET 1 Tablet ORAL DAILY Tiotropium [place] (Spiriva) 18 MCG CAP.W.DEV 1 Capsule Inhale through mouth DAILY Copies To: [address],YAIR
--- NOTE | 2016-12-30 12:07 | PN- Nephrology ---
See Addendum Assessment/Plan Assessment: ESRD - If patient remains in-house, she can get an extra session of dialysis tonight for fluid removal (not emergent). Anemia - 2/2 bleeding but then also getting Epogen with dialysis. Hg had been stable - none today. 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 Suggestion: -Will reach out to team if patient is to remain in-house for the rest of day - if so will do 2hr HD session -Cont Epogen -Cont Zemplar -AC as per Cards/Ortho Please call [phone] with ?'s Subjective Subjective: Dialysis yesterday Pain improved today ?being discharged Weight 82kg (dry weight 75.5kg) Objective Vital Signs and I&Os Vital Signs Date Time Temp Pulse Resp B/P Pulse O2 O2 Flow FiO2 Ox Delivery Rate 12/30 0805 97 Nasal 3.0L Cannula 12/30 08 Nasal 3.0L Cannula 12/30 0735 97.8 78 20 112/50 100 12/30 0000 98 Nasal 3.0L Cannula 12/29 2231 98.1 75 20 110/54 98 12/29 2153 70 109/45 12/29 1845 99 Nasal 3.0L Cannula 12/29 1600 Nasal 3.0L Cannula Intake & Output 12/30 1600 12/30 0400 12/29 1600 12/29 0400 12/28 1600 12/28 0400 Intake Total 100 200 817 923 6982 875 Output Total 101 200 865 392 6322 Balance -1 200 764 195 720 -1125 Intake, IV 284 105 250 275 Intake, Oral 100 200 680 240 770 600 Output, 2000 Dialysate Output, Stool 1 Output, Urine 100 200 150 300 Patient 180 lb 183 lb Weight Physical Exam: Gen - OK appearing HEENT - supple CV - RRR Chest - clear anteriorly Abd - soft, nontender Ext - 1+ edema Skin - no visible rash Neuro - AOX3 Current Medications: Current Medications Sig/Tripp Start time Last Medication Dose Route Stop Time Status Admin Acetaminophen 650 MG Q6P PRN 12/19 1700 AC PO Albuterol Sulfate 3 ML TID 12/23 2199 AC 12/30 INH 0803 Albuterol Sulfate 2 PUF Q4-6 PRN PRN 12/19 1700 AC INH Amlodipine Besylate 10 MG AT BEDTIME 12/19 2199 AC 12/29 PO 2153 Bisacodyl 10 MG ONCE ONE 12/30 0815 DC NC 12/30 0816 Bisacodyl 5 MG DAILY 12/29 1448 DC PO Bisacodyl 5 MG AT BEDTIME 12/19 2200 AC 12/29 PO 2153 Budesonide/ 2 PUF BID 12/19 2200 AC 12/30 Formoterol Fumarate INH 1005 Cholecalciferol 1,000 IU DAILY 12/20 1000 AC 12/30 PO 1006 Diltiazem HCl 120 MG DAILY 12/20 1000 AC 12/30 PO 1005 Epoetin Jerson 4,000 UNIT MoWeFr 12/20 1653 AC 12/24 IV 1700 Ferric Sodium 125 MG QWED@1300 12/29 1300 AC Gluconate Complex IV Sodium Chloride 100 ML Furosemide 40 MG 7:30 AM, & 4:30 PM 12/20 0730 AC 12/30 PO 0654 Hydromorphone HCl 4 MG ONCE ONE 12/29 1345 DC 12/29 PO 12/29 1346 1357 Hydromorphone HCl 2 MG Q4P PRN 12/29 1315 AC 12/30 IV 1024 Melatonin 5 MG AT BEDTIME 12/26 0215 AC 12/29 PO 2154 Multivitamins 1 TAB DAILY 12/20 1000 AC 12/30 PO 1005 Oxycodone HCl 15 MG Q6 PRN 12/19 1700 AC 12/29 PO 0943 Paricalcitol 2 MCG MoWeFr 12/20 1653 AC 12/24 IV 1700 Polyethylene Glycol 17 GM DAILY 12/20 1000 AC 12/24 PO 1855 Prednisone 10 MG DAILY 12/20 1000 AC 12/30 PO 1005 Senna 187 MG AT BEDTIME 12/19 2200 AC 12/29 PO 2153 Senna/Docusate Sodium 2 TAB DAILY 12/29 1451 AC 12/30 PO 1023 Sertraline HCl 100 MG DAILY 12/20 1000 AC 12/30 PO 1006 Sevelamer HCl 2,400 MG TIDAC 12/19 1700 AC 12/30 PO 0824 Tiotropium [place] 1 PUF DAILY 12/20 1000 AC 12/30 INH 1005 Warfarin Sodium 3 MG COUMADIN 1700 ONE 12/295 DC 12/29 PO 12/29 Results Pertinent Lab Results: Laboratory Tests 12/30/ 1156 1200 1132 Chemistry Sodium (137 - 145 mmol/L) Pending 133 L Potassium (3.5 - 5.1 mmol/L) Pending 4.6 Chloride (98 - 107 mmol/L) Pending 101 Carbon Dioxide (22 - 30 mmol/L) Pending 22 Anion Gap (5 - 16) Pending 10 BUN (7 - 17 mg/dL) Pending 59 H Creatinine (0.5 - 1.0 mg/dL) Pending 4.5 H Estimated GFR (>60 ml/min) 10 L BUN/Creatinine Ratio (7 - 25 %) Pending 13.1 Glucose (65 - 99 mg/dL) 105 H Calcium (8.4 - 10.2 mg/dL) 9.2 Phosphorus (2.5 - 4.5 mg/dL) 4.8 H Magnesium (1.6 - 2.3 mg/dL) 2.0 Albumin (3.5 - 5.0 g/dL) 2.8 L Coagulation PT (9.4 - 12.5 SEC) Pending 30.4 H INR (0.90 - 1.19) Pending 2.93 H APTT (25 - 37 SEC) 32 Hematology CBC w Diff Pending MAN DIFF ORDERED WBC (4.8 - 10.8 /CUMM) Pending 13.8 H RBC (4.20 - 5.40 /CUMM) Pending 2.66 L Hgb (12.0 - 16.0 G/DL) Pending 8.1 L Hct (37 - 47 %) Pending 24.5 L MCV (81.0 - 99.0 FL) Pending 92.1 MCH (27.0 - 31.0 PG) Pending 30.5 RDW (11.5 - 14.5 %) Pending 16.1 H Plt Count (130 - 400 /CUMM) Pending 231 MPV (7.4 - 10.4 FL) Pending 8.4 Gran % (42.2 - 75.2 %) 88.7 H Lymphocytes % (20.5 - 51.1 %) 4.8 L Monocytes % (1.7 - 9.3 %) 5.9 Eosinophils % (0 - 5 %) 0.6 Basophils % (0.0 - 2.0 %) 0 L Absolute Granulocytes (1.4 - 6.5 /CUMM) 12.2 H Segmented Neutrophils (42.2 - 75.2 %) 84 H Band Neutrophils (0.0 - 5.0 %) 1 Absolute Lymphocytes (1.2 - 3.4 /CUMM) 0.7 L Lymphocytes (20.5 - 51.1 %) 9 L Monocytes (1.7 - 9.3 %) 6 Absolute Monocytes (0.10 - 0.60 /CUMM) 0.8 H Absolute Eosinophils (0.0 - 0.7 /CUMM) 0.1 Absolute Basophils (0.0 - 0.2 /CUMM) 0 Platelet Estimate (ADEQUATE) ADEQUATE Hypochromic-Microcytic 1+ Poikilocytosis 1+ Anisocytosis 1+ PUBS MCHC (33.0 - 37.0 G/DL) Pending 33.1 Other Body Source Fld Total RBCs Counted (%) 100 12/29 12/29 03/ 1132 0915 2145 Chemistry Sodium (137 - 145 mmol/L) 133 L Potassium (3.5 - 5.1 mmol/L) 4.2 Chloride (98 - 107 mmol/L) 101 Carbon Dioxide (22 - 30 mmol/L) 22 Anion Gap (5 - 16) 10 BUN (7 - 17 mg/dL) 58 H Creatinine (0.5 - 1.0 mg/dL) 4.4 H Estimated GFR (>60 ml/min) 10 L BUN/Creatinine Ratio (7 - 25 %) 13.2 Magnesium (1.6 - 2.3 mg/dL) 2.0 Coagulation APTT (25 - 37 SEC) Cancelled 87 H 83 H Hematology CBC w Diff MAN DIFF ORDERED WBC (4.8 - 10.8 /CUMM) 13.9 H RBC (4.20 - 5.40 /CUMM) 2.65 L Hgb (12.0 - 16.0 G/DL) 8.0 L Hct (37 - 47 %) 24.3 L MCV (81.0 - 99.0 FL) 91.5 MCH (27.0 - 31.0 PG) 30.1 RDW (11.5 - 14.5 %) 16.1 H Plt Count (130 - 400 /CUMM) 220 MPV (7.4 - 10.4 FL) 8.5 Gran % (42.2 - 75.2 %) 85.5 H Lymphocytes % (20.5 - 51.1 %) 7.3 L Monocytes % (1.7 - 9.3 %) 6.3 Eosinophils % (0 - 5 %) 0.8 Basophils % (0.0 - 2.0 %) 0.1 Absolute Granulocytes (1.4 - 6.5 /CUMM) 11.8 H Segmented Neutrophils (42.2 - 75.2 %) 85 H Band Neutrophils (0.0 - 5.0 %) 1 Absolute Lymphocytes (1.2 - 3.4 /CUMM) 1.0 L Lymphocytes (20.5 - 51.1 %) 6 L Monocytes (1.7 - 9.3 %) 6 Absolute Monocytes (0.10 - 0.60 /CUMM) 0.9 H Eosinophils (0 - 5.0 %) 1 Absolute Eosinophils (0.0 - 0.7 /CUMM) 0.1 Absolute Basophils (0.0 - 0.2 /CUMM) 0 Myelocytes (0 - 0 %) 1 H Platelet Estimate (ADEQUATE) ADEQUATE Hypochromic-Microcytic 1+ Poikilocytosis 1+ Anisocytosis 1+ PUBS MCHC (33.0 - 37.0 G/DL) 32.9 L 12/2807 12/28 1050 0625 0235 Chemistry Sodium (137 - 145 mmol/L) 134 L Potassium (3.5 - 5.1 mmol/L) 4.5 Chloride (98 - 107 mmol/L) 104 Carbon Dioxide (22 - 30 mmol/L) 23 Anion Gap (5 - 16) 7 BUN (7 - 17 mg/dL) 43 H Creatinine (0.5 - 1.0 mg/dL) 3.1 H Estimated GFR (>60 ml/min) 15 L BUN/Creatinine Ratio (7 - 25 %) 13.9 Coagulation PT (9.4 - 12.5 SEC) 25.1 H INR (0.90 - 1.19) 2.41 H APTT (25 - 37 SEC) 96 H 40 H Hematology CBC w Diff NO MAN DIFF REQ WBC (4.8 - 10.8 /CUMM) 13.5 H RBC (4.20 - 5.40 /CUMM) 2.40 L Hgb (12.0 - 16.0 G/DL) 7.5 L Hct (37 - 47 %) 22.0 L MCV (81.0 - 99.0 FL) 91.8 MCH (27.0 - 31.0 PG) 31.1 H RDW (11.5 - 14.5 %) 15.5 H Plt Count (130 - 400 /CUMM) 197 MPV (7.4 - 10.4 FL) 9.5 Gran % (42.2 - 75.2 %) 88.2 H Lymphocytes % (20.5 - 51.1 %) 5.1 L Monocytes % (1.7 - 9.3 %) 6.4 Eosinophils % (0 - 5 %) 0.1 Basophils % (0.0 - 2.0 %) 0.2 Absolute Granulocytes (1.4 - 6.5 /CUMM) 11.9 H Absolute Lymphocytes (1.2 - 3.4 /CUMM) 0.7 L Absolute Monocytes (0.10 - 0.60 /CUMM) 0.9 H Absolute Eosinophils (0.0 - 0.7 /CUMM) 0 Absolute Basophils (0.0 - 0.2 /CUMM) 0 PUBS MCHC (33.0 - 37.0 G/DL) 33.8 /06 / 1645 1400 Chemistry Sodium (137 - 145 mmol/L) 132 L Potassium (3.5 - 5.1 mmol/L) 4.7 Chloride (98 - 107 mmol/L) 101 Carbon Dioxide (22 - 30 mmol/L) 22 Anion Gap (5 - 16) 8 BUN (7 - 17 mg/dL) 74 H Creatinine (0.5 - 1.0 mg/dL) 5.7 *H Estimated GFR (>60 ml/min) 7 L BUN/Creatinine Ratio (7 - 25 %) 13.0 Prealbumin (17.6 - 36.0 mg/dL) 15.5 L Coagulation PT (9.4 - 12.5 SEC) 23.5 H INR (0.90 - 1.19) 2.26 H APTT (25 - 37 SEC) 67 H Hematology CBC w Diff NO MAN DIFF REQ NO MAN DIFF REQ WBC (4.8 - 10.8 /CUMM) 16.4 H 14.6 H RBC (4.20 - 5.40 /CUMM) 2.95 L 2.09 L Hgb (12.0 - 16.0 G/DL) 9.0 L 6.5 *L Hct (37 - 47 %) 27.0 L 19.4 *L MCV (81.0 - 99.0 FL) 91.3 92.7 MCH (27.0 - 31.0 PG) 30.6 31.2 H RDW (11.5 - 14.5 %) 15.8 H 16.5 H Plt Count (130 - 400 /CUMM) 239 227 MPV (7.4 - 10.4 FL) 8.5 9.4 Gran % (42.2 - 75.2 %) 87.6 H 86.3 H Lymphocytes % (20.5 - 51.1 %) 5.0 L 5.7 L Monocytes % (1.7 - 9.3 %) 6.7 7.0 Eosinophils % (0 - 5 %) 0.5 0.9 Basophils % (0.0 - 2.0 %) 0.2 0.1 Absolute Granulocytes (1.4 - 6.5 /CUMM) 14.4 H 12.6 H Absolute Lymphocytes (1.2 - 3.4 /CUMM) 0.8 L 0.8 L Absolute Monocytes (0.10 - 0.60 /CUMM) 1.1 H 1.0 H Absolute Eosinophils (0.0 - 0.7 /CUMM) 0.1 0.1 Absolute Basophils (0.0 - 0.2 /CUMM) 0 0 PUBS MCHC (33.0 - 37.0 G/DL) 33.5 33.6 Imaging/Other Studies: EXAM TYPE: CAT - CT ABD & PELVIS W/O IV CONTRAS EXAMINATION: CT ABDOMEN AND PELVIS WITHOUT CONTRAST CLINICAL INFORMATION: Evaluate for increase in size hematoma. COMPARISON: 12/21/2016 and 04/19/2016 TECHNIQUE: Multidetector volumetric imaging was performed from the superior aspect of the liver through the pubic symphysis. Sagittal and coronal reformatted images were obtained on the technologist's workstation. DLP: 391.5 mGy-cm FINDINGS: LUNG BASES: Marked centrilobular emphysema is present in the lung bases. Heart is enlarged. Pacemaker leads are present. There is a 0.7 cm soft tissue nodule in the left lower lobe which is unchanged from the prior study but new from 04/19/2016. The more oblong 3 x 1 cm band like soft tissue density is unchanged from prior and new from 2015 as well. Atelectasis is present at the right lung base. LIVER, GALLBLADDER, AND BILIARY TREE: The liver is normal in size, shape, and attenuation. No focal hepatic lesion or biliary ductal dilatation is present. Numerous dense dependent layering gallbladder stones are again noted. No bladder wall thickening or surrounding inflammatory changes. No biliary ductal dilatation. PANCREAS: Unremarkable. SPLEEN: Lobular contour of the spleen and peripheral calcifications are unchanged and may correspond to changes of remote trauma. The appearance is unchanged from prior. ADRENAL GLANDS: Unremarkable. KIDNEYS AND URETERS: Bilateral renal atrophy is again noted. Multiple cysts of the left kidney are not appreciably changed as compared to prior, the largest of these measures 3.2 cm in greatest diameter at the upper pole of the left kidney. Punctate calcifications are again seen within the wall of the upper pole cyst. No significant perinephric stranding. No hydronephrosis or hydroureter. BLADDER: Unremarkable. GASTROINTESTINAL TRACT: Stomach, small bowel, and colon are normal in caliber. No bowel wall thickening. Moderate to large volume of stool is present throughout the colon. No intraperitoneal free air or free fluid. ABDOMINAL WALL: Small fat-containing right inguinal hernia. No bowel involvement. LYMPH NODES: Normal. VASCULAR: Calcific atherosclerosis is present in the abdominal aorta and iliac arteries. No aneurysmal dilatation. PELVIC VISCERA: Unremarkable OSSEOUS STRUCTURES: Postsurgical changes of left intertrochanteric fracture fixation with a Gamma nail and intramedullary kim are again noted. Degenerative disc disease and facet arthropathy are present in the lumbar spine. No new fractures. PELVIC MUSCULATURE/SOFT TISSUE: The soft tissue hematoma along the incision tract at the lateral aspect of the gluteus medius measures 5.7 x 3.9 x 7.6 cm (transverse by AP by craniocaudal) not significantly changed from the prior study by my measurement. There is surrounding soft tissue edema. There is a additional hematoma distal to this which is increased in size from the prior study, occurring at the site of the incision for the gamma nail placement. This multilocular collection measures roughly 5.2 x 3.7 x 4 cm. The inferior margin is not included on this study. Previously, this measured 2 x 2.6 x 3 cm. IMPRESSION: 1. No significant change in the size of the hematoma the lateral aspect of the gluteal musculature. There is a second, partially imaged hematoma distal to this at the lateral aspect of the proximal femoral shaft which has increased in size from the prior study, now measuring 5.2 x 3.7 x 4 cm. This region is incompletely imaged on this study. For follow-up of these hematomas, a CT of the thigh would be more optimal for covering the area of interest than a CT abdomen pelvis. 2. Two nodular opacities at the left lower lobe which are new from March 2016 and warrant follow-up to ensure resolution. According to the UPDATED 2017 Fleischner Society recommendations, the advised follow-up imaging for multiple solid nodules, the largest measuring 6 mm or greater, is CT at 3-6 months, then at 18-24 months. 3. Cholelithiasis. 4. Bilateral renal atrophy with left renal cysts.
[2016-12-30 12:18] LABS: ABSOLUTE BASOPHIL COUNT 0 /CUMM (0.0-0.2); ABSOLUTE EOSINOPHIL COUNT 0.2 /CUMM (0.0-0.7); ABSOLUTE LYMPH COUNT 0.9 /CUMM (1.2-3.4); ABSOLUTE MONOCYTE COUNT 0.8 /CUMM (0.10-0.60); BASOPHIL % 0.1 % (0.0-2.0); EOSINOPHIL % 1.1 % (0-5); HEMATOCRIT 25.3 % (37-47); MEAN CORPUSCULAR HGB 30.2 PG (27.0-31.0); MEAN CORPUSCULAR HGB CONC 32.5 G/DL (33.0-37.0); MEAN PLATELET VOLUME 8.1 FL (7.4-10.4); PLATELET COUNT 251 /CUMM (130-400); RED BLOOD CELL CT 2.72 /CUMM (4.20-5.40)
[2016-12-30 12:55] LABS: PT 46.2 SEC (9.4-12.5)
[2016-12-30 12:58] LABS: GRANULOCYTE % 87.9 % (42.2-75.2)
--- NOTE | 2016-12-30 14:18 | NUR ---
Physical Therapy: Attempted to see pt this afternoon. Pt comfortable and tired at this time. States she will be going to HD very shortly. Will defer treatment at this time and follow up tomorrow AM as appropriate. Pt in agreement.
[2016-12-30 14:32] VITALS: BP 108/60
--- NOTE | 2016-12-30 19:19 | PN- Cardiology ---
Subjective Subjective: Still having some oozing from her left hip surgical site, although she thinks this is slowing down. No chest discomfort, palpitations, or change in her chronic shortness of breath. Objective Vital Signs and I&Os Vital Signs Date Time Temp Pulse Resp B/P Pulse O2 O2 Flow FiO2 Ox Delivery Rate 12/30 1600 Nasal 3.0L Cannula 12/30 1432 98.2 81 20 108/60 96 Nasal 3.0L Cannula 12/30 08 97 Nasal 3.0L Cannula 12/31 799 Nasal 3.0L Cannula 12/30 0735 97.8 78 20 112/50 100 12/30 0000 98 Nasal 3.0L Cannula 12/29 2231 98.1 75 20 110/54 98 12/29 2153 70 109/45 Intake & Output 12/30 0812/30 0000 12/29 1600 12/29 0812/29 0000 Intake Total 1480 100 200 200 764 345 Output Total 552 0 200 150 Balance 928 100 200 200 564 195 Intake, IV 10 284 105 Intake, Oral 1470 100 200 200 480 240 Number 2 Bowel Movements Output, Stool 2 Output, Urine 550 0 200 150 Patient 180 lb 183 lb Weight Physical Exam: Well developed, pale appearing female in no acute distress nasal oxygen in place. Vital signs: See above. Lungs: Decreased breath sounds and otherwise clear to auscultation. Heart: S1, S2 with appropriate mechanical valve sounds and grade 2/6 systolic murmur. Extremities: Trace edema. Current Medications: Current Medications Sig/Tripp Start time Last Medication Dose Route Stop Time Status Admin Acetaminophen 650 MG Q6P PRN 12/19 1700 AC PO Albuterol Sulfate 3 ML TID 12/23 220 AC 12/30 INH 1310 Albuterol Sulfate 2 PUF Q4-6 PRN PRN 12/19 1700 AC INH Amlodipine Besylate 10 MG AT BEDTIME 12/19 2199 AC 12/29 PO 2153 Bisacodyl 10 MG ONCE ONE 12/30 0815 DC NV 12/30 0816 Bisacodyl 5 MG AT BEDTIME 12/19 2200 AC 12/29 PO 2153 Budesonide/ 2 PUF BID 12/19 220 AC 12/30 Formoterol Fumarate INH 1005 Cholecalciferol 1,000 IU DAILY 12/20 1000 AC 12/30 PO 1006 Diltiazem HCl 120 MG DAILY 12/20 1000 AC 12/30 PO 1005 Epoetin [place] 4,000 UNIT MoWeFr 12/20 1653 AC 12/24 IV 1700 Ferric Sodium 125 MG QWED@1300 12/29 1300 AC Gluconate Complex IV Sodium Chloride 100 ML Furosemide 40 MG 7:30 AM, & 4:30 PM 12/20 0730 AC 12/30 PO 1714 Hydromorphone HCl 2 MG Q4P PRN 12/29 1315 AC 12/30 IV 1450 Melatonin 5 MG AT BEDTIME 12/26 0215 AC 12/29 PO 2154 Multivitamins 1 TAB DAILY 12/20 1000 AC 12/30 PO 1005 Oxycodone HCl 15 MG Q6 PRN 12/19 1700 AC 12/30 PO 1851 Paricalcitol 2 MCG MoWeFr 12/20 1653 AC 12/24 IV 1700 Polyethylene Glycol 17 GM DAILY 12/20 1000 AC 12/24 PO 1855 Prednisone 10 MG DAILY 12/20 1000 AC 12/30 PO 1005 Senna 187 MG AT BEDTIME 12/19 2200 AC 12/29 PO 2153 Senna/Docusate Sodium 2 TAB DAILY 12/29 1451 AC 12/30 PO 1023 Sertraline HCl 100 MG DAILY 12/20 1000 AC 12/30 PO 1006 Sevelamer HCl 2,400 MG TIDAC 12/19 1700 AC 12/30 PO 1714 Tiotropium [place] 1 PUF DAILY 12/20 1000 AC 12/30 INH 1005 Warfarin Sodium 3 MG COUMADIN 1700 ONE 12/29 1914 DC 12/29 PO 12/29 Results Last 48 Hrs of Labs/Mics: Laboratory Tests 12/30/16 1156: Anion Gap 8, Estimated GFR 13 L, BUN/Creatinine Ratio 11.1, PT 46.2 *H, INR 4.47 *H, CBC w Diff NO MAN DIFF REQ, RBC 2.72 L, MCV 93.0, MCH 30.2, RDW 17.0 H, MPV 8.1, Gran % 87.9 H, Lymphocytes % 5.8 L, Monocytes % 5.1, Eosinophils % 1.1, Basophils % 0.1, Absolute Granulocytes 14.0 H, Absolute Lymphocytes 0.9 L , Absolute Monocytes 0.8 H, Absolute Eosinophils 0.2, Absolute Basophils 0, PUBS MCHC 32.5 L 12/29/16 1200: Anion Gap 10, Estimated GFR 10 L, BUN/Creatinine Ratio 13.1, Glucose 105 H, Calcium 9.2, Phosphorus 4.8 H, Magnesium 2.0, Albumin 2.8 L, CBC w Diff MAN DIFF ORDERED, RBC 2.66 L, MCV 92.1, MCH 30.5, RDW 16.1 H, MPV 8.4, Gran % 88.7 H, Lymphocytes % 4.8 L, Monocytes % 5.9, Eosinophils % 0.6, Basophils % 0 L, Absolute Granulocytes 12.2 H, Segmented Neutrophils 84 H, Band Neutrophils 1, Absolute Lymphocytes 0.7 L, Lymphocytes 9 L, Monocytes 6, Absolute Monocytes 0.8 H, Absolute Eosinophils 0.1, Absolute Basophils 0, Platelet Estimate ADEQUATE, Hypochromic-Microcytic 1+, Poikilocytosis 1+, Anisocytosis 1+, PUBS MCHC 33.1, Fld Total RBCs Counted 100 12/29/16 1132: PT 30.4 H, INR 2.93 H, APTT 32 12/29/16 1132: APTT Cancelled 12/29/16 0915: Anion Gap 10, Estimated GFR 10 L, BUN/Creatinine Ratio 13.2, Magnesium 2.0, APTT 87 H, CBC w Diff MAN DIFF ORDERED, RBC 2.65 L, MCV 91.5, MCH 30.1, RDW 16.1 H, MPV 8.5, Gran % 85.5 H, Lymphocytes % 7.3 L, Monocytes % 6.3, Eosinophils % 0.8, Basophils % 0.1, Absolute Granulocytes 11.8 H, Segmented Neutrophils 85 H, Band Neutrophils 1, Absolute Lymphocytes 1.0 L, Lymphocytes 6 L, Monocytes 6, Absolute Monocytes 0.9 H, Eosinophils 1, Absolute Eosinophils 0.1, Absolute Basophils 0, Myelocytes 1 H, Platelet Estimate ADEQUATE, Hypochromic-Microcytic 1+, Poikilocytosis 1+, Anisocytosis 1+, PUBS MCHC 32.9 L 12/28/16 2145: APTT 83 H Recent Imaging Studies: CT abdomen/pelvis (12/27/2016): * No significant change in the size of the hematoma the lateral aspect ofthe gluteal musculature. There is a second, partially imaged hematoma distal to this at the lateral aspect of the proximal femoral shaft which has increased in size from the prior study, now measuring 5.2 x 3.7 x 4 cm. This region is incompletely imaged on this study. For follow-up of these hematomas, a CT of the thigh would be more optimal for covering the area of interest than a CT abdomen pelvis. * Two nodular opacities at the left lower lobe which are new from March 2016 and warrant follow-up to ensure resolution. According to the UPDATED 2017 Fleischner Society recommendations, the advised follow-up imaging for multiple solid nodules, the largest measuring 6 mm or greater, is CT at 3-6 months, then at 18- 24 months. * Cholelithiasis. * Bilateral renal atrophy with left renal cysts. Assessment/Plan Assessment/Plan Mrs. Freeman is a hemodynamically stable 66-year-old female with multiple medical problems: * s/p orthopedic surgery for mechanical fall complicated by surgical site hematoma requiring PRBCs 3 while on bridging anticoagulation. * RHD w/ MS s/p mechanical mitral valve prosthesis. * Chronic atrial fibrillation s/p AVN ablation for RVR w/ BiV pacemaker. * Previous, remote TIA on Warfarin anticoagulation. * Supratherapeutic INR (4.47) with anticoagulation on hold who, fortunately, has remained relatively hemodynamically stable with H/H 8.2/25.3 today. * ESRD on HD. Recommendations: * Follow-up INR and restart anticoagulation when appropriate. * Continued HD for ESRD. * DVT prophylaxis being addressed by supratherapeutic INR. Continue telemetry? Not applicable
[2016-12-30 22:26] VITALS: BP 112/58
[2016-12-31 06:14] VITALS: BP 118/60
--- NOTE | 2016-12-31 07:08 | PN- Housestaff ---
Subjective Follow-up For: Intertrochanteric fracture left Dropping H&H Subjective: I saw and examined the patient today She reports pain in her left thigh, with a drop in her H&H. Another transfusion is needed with dialysis today. otherwise no concerns. Review of Systems Constitutional: Reports: see HPI, malaise, weakness. Musculoskeletal: Reports: joint pain, muscle pain. Comments: ROS negative except the above. Objective Last 24 Hrs of Vital Signs/I&O Vital Signs Date Time Temp Pulse Resp B/P Pulse O2 O2 Flow FiO2 Ox Delivery Rate 12/31 0614 98.0 70 20 118/60 98 Nasal 3.0L Cannula 12/31 0000 99 Nasal 3.0L Cannula 12/30 2253 72 112/58 12/30 2226 98.2 72 20 112/58 99 Nasal 3.0L Cannula 12/30 1925 96 Nasal 3.0L Cannula 12/30 1920 98 Nasal 3.0L Cannula 12/30 1918 99 Nasal 3.0L Cannula 12/30 1600 Nasal 3.0L Cannula 12/30 1432 98.2 81 20 108/60 96 Nasal 3.0L Cannula 12/30 0805 97 Nasal 3.0L Cannula 12/30 0800 Nasal 3.0L Cannula 12/30 0735 97.8 78 20 112/50 100 Intake & Output 12/31 0800 12/31 0000 12/30 1600 Intake Total 240 1480 Output Total 200 200 552 Balance -200 40 928 Intake, IV 10 Intake, Oral 240 1470 Number 0 2 Bowel Movements Output, Stool 2 Output, Urine 200 200 550 Patient 82.554 kg Weight Physical Exam General Appearance: Alert, Oriented X3, Cooperative, Moderate Distress Skin: No Rashes, significant bruising in the left thigh. HEENT: Atraumatic, PERRLA, EOMI Neck: Supple Cardiovascular: Regular Rate, Normal S1, Normal S2, No Murmurs Lungs: Normal Air Movement, decreased breath sounds at the bases. Abdomen: Normal Bowel Sounds, Soft, No Tenderness Neurological: Sensation Intact, Cranial Nerves 3-12 NL Extremities: No Clubbing, No Cyanosis, edema present bilaterally Current Medications: Current Medications Sig/Tripp Start time Last Medication Dose Route Stop Time Status Admin Acetaminophen 650 MG Q6P PRN 12/19 1700 AC PO Albuterol Sulfate 3 ML TID 12/23 2199 AC 12/30 INH 1915 Albuterol Sulfate 2 PUF Q4-6 PRN PRN 12/19 1700 AC INH Amlodipine Besylate 10 MG AT BEDTIME 12/19 2200 AC 12/30 PO 2253 Bisacodyl 10 MG ONCE ONE 12/30 0815 DC NH 12/30 0816 Bisacodyl 5 MG AT BEDTIME 12/19 2200 AC 12/30 PO 2253 Budesonide/ 2 PUF BID 12/19 2200 AC 12/30 Formoterol Fumarate INH 2257 Cholecalciferol 1,000 IU DAILY 12/20 1000 AC 12/30 PO 1006 Diltiazem HCl 120 MG DAILY 12/20 1000 AC 12/30 PO 1005 Epoetin Jerson 4,000 UNIT MoWeFr 12/20 1653 AC 12/24 IV 1700 Ferric Sodium 125 MG QWED@1300 12/29 1300 AC Gluconate Complex IV Sodium Chloride 100 ML Furosemide 40 MG 7:30 AM, & 4:30 PM 12/20 0730 AC 12/31 PO 0636 Hydromorphone HCl 2 MG Q4P PRN 12/29 1315 AC 12/31 IV 0439 Lorazepam 2 MG ONCE ONE 12/300 DC 12/30 PO 12/30 2201 2253 Melatonin 5 MG AT BEDTIME 12/26 0215 AC 12/30 PO 2253 Multivitamins 1 TAB DAILY 12/20 1000 AC 12/30 PO 1005 Oxycodone HCl 15 MG Q6 PRN 12/19 1700 AC 12/30 PO 1851 Paricalcitol 2 MCG MoWeFr 12/20 1653 AC 12/24 IV 1700 Polyethylene Glycol 17 GM DAILY 12/20 1000 AC 12/24 PO 1855 Prednisone 10 MG DAILY 12/20 1000 AC 12/30 PO 1005 Senna 187 MG AT BEDTIME 12/19 2200 AC 12/30 PO 2253 Senna/Docusate Sodium 2 TAB DAILY 12/29 1451 AC 12/30 PO 1023 Sertraline HCl 100 MG DAILY 12/20 1000 AC 12/30 PO 1006 Sevelamer HCl 2,400 MG TIDAC 12/19 1700 AC 12/30 PO 1714 Tiotropium [place] 1 PUF DAILY 12/20 1000 AC 12/30 INH 1005 Last 24 Hrs of Lab/Thien Results Last 24 Hrs of Labs/Mics: Laboratory Tests 12/31/16 0908: Anion Gap 12, Estimated GFR 9 L, BUN/Creatinine Ratio 12.8, PT 32.2 H, INR 3.10 H, CBC w Diff NO MAN DIFF REQ, RBC 2.32 L, MCV 95.2, MCH 31.4 H, RDW 17.0 H, MPV 9.2, Gran % 87.1 H, Lymphocytes % 7.2 L, Monocytes % 4.4, Eosinophils % 1.2, Basophils % 0.1, Absolute Granulocytes 12.0 H, Absolute Lymphocytes 1.0 L, Absolute Monocytes 0.6, Absolute Eosinophils 0.2, Absolute Basophils 0, PUBS MCHC 33.0 12/30/16 1156: Anion Gap 8, Estimated GFR 13 L, BUN/Creatinine Ratio 11.1, PT 46.2 *H, INR 4.47 *H, CBC w Diff NO MAN DIFF REQ, RBC 2.72 L, MCV 93.0, MCH 30.2, RDW 17.0 H, MPV 8.1, Gran % 87.9 H, Lymphocytes % 5.8 L, Monocytes % 5.1, Eosinophils % 1.1, Basophils % 0.1, Absolute Granulocytes 14.0 H, Absolute Lymphocytes 0.9 L , Absolute Monocytes 0.8 H, Absolute Eosinophils 0.2, Absolute Basophils 0, PUBS MCHC 32.5 L Lines/Diet/Fluids Lines: peripheral lines Assessment/Plan Assessment: 66 y/o woman with PMHx of ESRD on HD(MWF),atrial fibrillation on warfarin, mitral stenosis s/p mechanical valve replacement initially admitted for L hip intertrochanteric failure 2/2 mechanical fall, now POD #10 s/p L hip IMHS, complicated by ABLA 2/2 hematoma at the surgical site while on bridging anticoagulation. #Supratherapeutic INR (resolved): - INR goal is 2.5-3.5 given mechanical mitral valve. * Cardiology following. Appreciate their recs. * INR is 3.1 so dosing of warfarin 1mg today - recheck her INR tomorrow. * patient did no require a proline as she had adequate access #ABLA:. * H/H dropped today from 8.2/25.3 to 7.3/22 received another unit today with her dialysis, so will recheck her H&H tomorrow. * repeat ct scan showed 2 hematoma orthopedics consulted felt her hematoma is unrelated to surgery, although if related not in compartment syndrome. * Recommend DEDRICK hose stockings and Meek wrap depressions to the thigh * No surgical options - no IR guided removal of hematoma in view of her anticoagulation status. So the options available now are monitor her CBC with each dialysis and treat conservatively. # L hip intertrochanteric fracture: POD #11 s/p L hip IMHS. * will need STR # ESRD: Secondary to presumed hypertensive nephrosclerosis. * Nephrology following. Appreciate their recs. * Continue Epogen 4000 units IV and Zemplar 2 mcg IV three times per week with HD. * Continue Nephrocaps tab PO daily and Sevelamer 2400 mg PO TIDAC. * Underwent dialysis today. Diet: Renal Dialysis Diet DVT PPx: IV heparin CODE: DNR/DNI Problem List: 1. Afib 2. Bleeding 3. Chronic pain 4. Hypertension 5. Intertrochanteric fracture of left hip 6. Acute blood loss anemia 7. Depression 8. Hematoma, postoperative Pain Ratin Pain Location: left hip Pain Goal: Pain 4 or less Pain Plan: Dilaudid and morphine Tomorrow's Labs & Rationales: cbc to monitor H&H in the setting of bleed BEP in the setting of ESRD on HD PT in the setting of mechanical valve on warfarin
[2016-12-31 10:01] LABS: PT 32.2 SEC (9.4-12.5)
[2016-12-31 10:06] LABS: ABSOLUTE BASOPHIL COUNT 0 /CUMM (0.0-0.2); ABSOLUTE EOSINOPHIL COUNT 0.2 /CUMM (0.0-0.7); ABSOLUTE MONOCYTE COUNT 0.6 /CUMM (0.10-0.60); BASOPHIL % 0.1 % (0.0-2.0); EOSINOPHIL % 1.2 % (0-5); MEAN CORPUSCULAR HGB 31.4 PG (27.0-31.0); MEAN CORPUSCULAR VOLUME 95.2 FL (81.0-99.0); MEAN PLATELET VOLUME 9.2 FL (7.4-10.4); PLATELET COUNT 236 /CUMM (130-400); RED BLOOD CELL CT 2.32 /CUMM (4.20-5.40); WHITE BLOOD CELL COUNT 13.8 /CUMM (4.8-10.8)
--- NOTE | 2016-12-31 10:15 | NUR ---
NURSING NOTE: LAB CALLED THIS RN WITH CRITICAL H/H VALUES. HGB 7.3 HCT 22.0. LAB VALUE NOTIFIED TO [facility] 407. NEW ORDER FOR TYPE AND SCREEN LAB WORK ORDERED. PATIENT TO BE TRANSFUSED DURING DIALYSIS. WILL CONTINUE TO MONITOR.
[2016-12-31 10:28] LABS: GRANULOCYTE % 87.1 % (42.2-75.2)
--- NOTE | 2016-12-31 11:15 | PN- Att Addend ---
Attending Addendum Attending Brief Note We will ready to start disposition plans on the patient for today, but again her hematocrit and hemoglobin dropped will give another unit of blood probably with her hemodialysis and also ask orthopedics to check the patient to make sure not losing any more blood from surgical area and to reassessed sitting. Will check labs in a.m. if stable then start disposition plans. 24 TOTALS 12/31 0000 12/30 0000 Intake Total 1820 1164 Output Total 752 200 Balance 1068 964 Intake, IV 10 284 Intake, Oral 1810 880 Number 2 Bowel Movements Output, Stool 2 Output, Urine 750 200 Patient 180 lb 183 lb Weight Current Medications Sig/Tripp Start time Last Medication Dose Route Stop Time Status Admin Acetaminophen 650 MG Q6P PRN 12/19 170 AC PO Albuterol Sulfate 3 ML TID 12/23 2199 AC 12/31 INH 0843 Albuterol Sulfate 2 PUF Q4-6 PRN PRN 12/19 170 AC INH Amlodipine Besylate 10 MG AT BEDTIME 12/19 2199 AC 12/30 PO 2253 Bisacodyl 5 MG AT BEDTIME 12/19 220 AC 12/30 PO 2253 Budesonide/ 2 PUF BID 12/19 220 AC 12/31 Formoterol Fumarate INH 0857 Cholecalciferol 1,000 IU DAILY 12/20 1000 AC 12/31 PO 0856 Diltiazem HCl 120 MG DAILY 12/20 1000 AC 12/31 PO 0857 Epoetin J[place] 4,000 UNIT MoWeFr 12/20 1653 AC 12/24 IV 1700 Ferric Sodium 125 MG QWED@1300 12/29 1300 AC Gluconate Complex IV Sodium Chloride 100 ML Furosemide 40 MG 7:30 AM, & 4:30 PM 12/20 0730 AC 12/31 PO 0636 Hydromorphone HCl 2 MG Q4P PRN 12/29 1315 AC 12/31 IV 0439 Lorazepam 2 MG ONCE ONE 12/30 2199 DC 12/30 PO 12/30 220 2253 Melatonin 5 MG AT BEDTIME 12/26 0215 AC 12/30 PO 2253 Multivitamins 1 TAB DAILY 12/20 1000 AC 12/31 PO 0857 Oxycodone HCl 15 MG Q6 PRN 12/19 1700 AC 12/31 PO 0855 Paricalcitol 2 MCG MoWeFr 12/20 1653 AC 12/24 IV 1700 Polyethylene Glycol 17 GM DAILY 12/20 1000 AC 12/31 PO 0855 Prednisone 10 MG DAILY 12/20 1000 AC 12/31 PO 0857 Senna 187 MG AT BEDTIME 12/19 2200 AC 12/30 PO 2253 Senna/Docusate Sodium 2 TAB DAILY 12/29 1451 AC 12/31 PO 0857 Sertraline HCl 100 MG DAILY 12/20 1000 AC 12/31 PO 0856 Sevelamer HCl 2,400 MG TIDAC 12/19 1700 AC 12/31 PO 0856 Tiotropium [place] 1 PUF DAILY 12/20 1000 AC 12/31 INH 0856 Laboratory Tests 12/31/16 0908: Anion Gap 12, Estimated GFR 9 L, BUN/Creatinine Ratio 12.8, PT 32.2 H, INR 3.10 H, CBC w Diff NO MAN DIFF REQ, RBC 2.32 L, MCV 95.2, MCH 31.4 H, RDW 17.0 H, MPV 9.2, Gran % 87.1 H, Lymphocytes % 7.2 L, Monocytes % 4.4, Eosinophils % 1.2, Basophils % 0.1, Absolute Granulocytes 12.0 H, Absolute Lymphocytes 1.0 L, Absolute Monocytes 0.6, Absolute Eosinophils 0.2, Absolute Basophils 0, PUBS MCHC 33.0 12/30/16 1156: Anion Gap 8, Estimated GFR 13 L, BUN/Creatinine Ratio 11.1, PT 46.2 *H, INR 4.47 *H, CBC w Diff NO MAN DIFF REQ, RBC 2.72 L, MCV 93.0, MCH 30.2, RDW 17.0 H, MPV 8.1, Gran % 87.9 H, Lymphocytes % 5.8 L, Monocytes % 5.1, Eosinophils % 1.1, Basophils % 0.1, Absolute Granulocytes 14.0 H, Absolute Lymphocytes 0.9 L , Absolute Monocytes 0.8 H, Absolute Eosinophils 0.2, Absolute Basophils 0, PUBS MCHC 32.5 L 12/29/16 1200: Anion Gap 10, Estimated GFR 10 L, BUN/Creatinine Ratio 13.1, Glucose 105 H, Calcium 9.2, Phosphorus 4.8 H, Magnesium 2.0, Albumin 2.8 L, CBC w Diff MAN DIFF ORDERED, RBC 2.66 L, MCV 92.1, MCH 30.5, RDW 16.1 H, MPV 8.4, Gran % 88.7 H, Lymphocytes % 4.8 L, Monocytes % 5.9, Eosinophils % 0.6, Basophils % 0 L, Absolute Granulocytes 12.2 H, Segmented Neutrophils 84 H, Band Neutrophils 1, Absolute Lymphocytes 0.7 L, Lymphocytes 9 L, Monocytes 6, Absolute Monocytes 0.8 H, Absolute Eosinophils 0.1, Absolute Basophils 0, Platelet Estimate ADEQUATE, Hypochromic-Microcytic 1+, Poikilocytosis 1+, Anisocytosis 1+, PUBS MCHC 33.1, Fld Total RBCs Counted 100 12/29/16 1132: PT 30.4 H, INR 2.93 H, APTT 32 12/29/16 1132: APTT Cancelled
[2016-12-31 12:00] VITALS: BP 108/44
--- NOTE | 2016-12-31 12:07 | PN- Orthopedic ---
Subjective Subjective: Patient seen today status post intramedullary nail left hip fracture 2 weeks ago. Medical service concerned about hematoma and constantly fluctuating hematocrit. CAT scans have been done which show hematoma. Objective Vital Signs and I&Os Vital Signs Date Time Temp Pulse Resp B/P Pulse O2 O2 Flow FiO2 Ox Delivery Rate 12/31 1132 Nasal 3.0L Cannula 12/31 0859 99 Nasal 3.0L Cannula 12/31 0800 Nasal 3.0L Cannula 12/31 0614 98.0 70 20 118/60 98 Nasal 3.0L Cannula 12/31 0000 99 Nasal 3.0L Cannula 12/30 2253 72 112/58 12/30 2226 98.2 72 20 112/58 99 Nasal 3.0L Cannula 12/30 1925 96 Nasal 3.0L Cannula 12/30 1920 98 Nasal 3.0L Cannula 12/30 1918 99 Nasal 3.0L Cannula 12/30 1600 Nasal 3.0L Cannula 12/30 1432 98.2 81 20 108/60 96 Nasal 3.0L Cannula Intake & Output 12/31 1600 12/31 0800 12/31 0000 12/30 1600 12/30 0800 12/30 0000 Intake Total 240 1480 100 200 Output Total 200 200 552 0 Balance -200 40 928 100 200 Intake, IV 10 Intake, Oral 240 1470 100 200 Number 0 2 Bowel Movements Output, Stool 2 Output, Urine 200 200 550 0 Patient 182 lb 180 lb Weight Exam the patient's resting comfortably. No pain out of proportion. The proximal incision has some mild serosanguineous drainage. There is ecchymosis about the proximal site as well as proximally in the pelvis and buttock. It is firm to touch. There are no signs of infection. The Assessment/Plan Assessment/Plan As well as intramedullary nail for a left intertrochanteric hip fracture in a patient with multiple comorbidities. The patient has no sign of compartment syndrome. There is no sign of active infection. Concern about the hematoma and hematocrit is understood however there is no need for surgical intervention or evacuation at this time. If there is any significant concern on the part of the medical service they can consider consultation with interventional radiology for possibility of ultrasound-guided or CT-guided drainage of the hematoma. Otherwise I feel the patient is stable to continue with physical therapy and transfer when medically stable. Core Measures/Miscellaneous Venous Thromboembolism VTE Risk Factors: Age > 40, Surgery VTE Contraindications: No Contraindications VTE Diagnosis: No VTE Type: NONE VTE Confirmed by (Test): NONE Beta Daija Is Beta Daija a Home Med? Yes If Yes, Was This Ordered Today? Yes Antibiotics Is Patient on Antibiotics? No
--- NOTE | 2016-12-31 12:45 | PN- Nephrology ---
See Addendum Assessment/Plan Assessment: ESRD - Dialysis today. Anemia - 2/2 bleeding but then also getting Epogen with dialysis. Drop likely 2 /2 bleeding - to get 1U PRBC today. 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 Suggestion: -Dialysis today with 1U PRBC -Cont Epogen -Cont Zemplar -AC as per Cards/Ortho Please call [phone] with ?'s Subjective Subjective: Hg down to 7.3 Pain better Ordered for 1U PRBC BP stable Objective Vital Signs and I&Os Vital Signs Date Time Temp Pulse Resp B/P Pulse O2 O2 Flow FiO2 Ox Delivery Rate 12/31 1132 Nasal 3.0L Cannula 12/31 0859 99 Nasal 3.0L Cannula 12/31 0800 Nasal 3.0L Cannula 12/31 0614 98.0 70 20 118/60 98 Nasal 3.0L Cannula 12/31 0000 99 Nasal 3.0L Cannula 12/30 2253 72 112/58 12/30 2226 98.2 72 20 112/58 99 Nasal 3.0L Cannula 12/30 1925 96 Nasal 3.0L Cannula 12/30 1920 98 Nasal 3.0L Cannula 12/30 1918 99 Nasal 3.0L Cannula 12/30 1600 Nasal 3.0L Cannula 12/30 1432 98.2 81 20 108/60 96 Nasal 3.0L Cannula Intake & Output 12/31 1600 12/31 0400 12/30 1600 12/30 0400 12/29 1600 12/29 0400 Intake Total 240 1580 200 964 345 Output Total 200 200 552 200 150 Balance -532 20 0839 200 764 195 Intake, IV 10 284 105 Intake, Oral 240 1570 200 680 240 Number 0 2 Bowel Movements Output, Stool 2 Output, Urine 200 200 550 200 150 Patient 182 lb 180 lb 183 lb Weight Physical Exam: Gen - improved appearance, working with PT HEENT - supple CV - RRR Chest - clear Abd - soft, nontener Ext - trace edema Neuro - AOX3 Current Medications: Current Medications Sig/Tripp Start time Last Medication Dose Route Stop Time Status Admin Acetaminophen 650 MG Q6P PRN 12/19 1700 AC PO Albuterol Sulfate 3 ML TID 12/23 2200 AC 12/31 INH 0843 Albuterol Sulfate 2 PUF Q4-6 PRN PRN 12/19 1700 AC INH Amlodipine Besylate 10 MG AT BEDTIME 12/19 2200 AC 12/30 PO 2253 Bisacodyl 5 MG AT BEDTIME 12/19 2200 AC 12/30 PO 2253 Budesonide/ 2 PUF BID 12/19 2200 AC 12/31 Formoterol Fumarate INH 0857 Cholecalciferol 1,000 IU DAILY 12/20 1000 AC 12/31 PO 0856 Diltiazem HCl 120 MG DAILY 12/20 1000 AC 12/31 PO 0857 Epoetin Jerson 4,000 UNIT MoWeFr 12/20 1653 AC 12/24 IV 1700 Ferric Sodium 125 MG QWED@1300 12/29 1300 AC Gluconate Complex IV Sodium Chloride 100 ML Furosemide 40 MG 7:30 AM, & 4:30 PM 12/20 0730 AC 12/31 PO 0636 Hydromorphone HCl 2 MG Q4P PRN 12/29 1315 AC 12/31 IV 1203 Lorazepam 2 MG ONCE ONE 12/30 2199 DC 12/30 PO 12/30 220 2253 Melatonin 5 MG AT BEDTIME 12/26 0215 AC 12/30 PO 2253 Multivitamins 1 TAB DAILY 12/20 1000 AC 12/31 PO 0857 Oxycodone HCl 15 MG Q6 PRN 12/19 1700 AC 12/31 PO 0855 Paricalcitol 2 MCG MoWeFr 12/20 1653 AC 12/24 IV 1700 Polyethylene Glycol 17 GM DAILY 12/20 1000 AC 12/31 PO 0855 Prednisone 10 MG DAILY 12/20 1000 AC 12/31 PO 0857 Senna 187 MG AT BEDTIME 12/19 2200 AC 12/30 PO 2253 Senna/Docusate Sodium 2 TAB DAILY 12/29 1451 AC 12/31 PO 0857 Sertraline HCl 100 MG DAILY 12/20 1000 AC 12/31 PO 0856 Sevelamer HCl 2,400 MG TIDAC 12/19 1700 AC 12/31 PO 1212 Tiotropium [place] 1 PUF DAILY 12/20 1000 AC 12/31 INH 0856 Results Pertinent Lab Results: Laboratory Tests 12/31 12/30 0908 1156 Chemistry Sodium (137 - 145 mmol/L) 136 L 136 L Potassium (3.5 - 5.1 mmol/L) 4.6 3.8 Chloride (98 - 107 mmol/L) 100 99 Carbon Dioxide (22 - 30 mmol/L) 24 29 Anion Gap (5 - 16) 12 8 BUN (7 - 17 mg/dL) 60 H 39 H Creatinine (0.5 - 1.0 mg/dL) 4.7 H 3.5 H Estimated GFR (>60 ml/min) 9 L 13 L BUN/Creatinine Ratio (7 - 25 %) 12.8 11.1 Coagulation PT (9.4 - 12.5 SEC) 32.2 H 46.2 *H INR (0.90 - 1.19) 3.10 H 4.47 *H Hematology CBC w Diff NO MAN DIFF REQ NO MAN DIFF REQ WBC (4.8 - 10.8 /CUMM) 13.8 H 16.0 H RBC (4.20 - 5.40 /CUMM) 2.32 L 2.72 L Hgb (12.0 - 16.0 G/DL) 7.3 *L 8.2 L Hct (37 - 47 %) 22.0 L 25.3 L MCV (81.0 - 99.0 FL) 95.2 93.0 MCH (27.0 - 31.0 PG) 31.4 H 30.2 RDW (11.5 - 14.5 %) 17.0 H 17.0 H Plt Count (130 - 400 /CUMM) 236 251 MPV (7.4 - 10.4 FL) 9.2 8.1 Gran % (42.2 - 75.2 %) 87.1 H 87.9 H Lymphocytes % (20.5 - 51.1 %) 7.2 L 5.8 L Monocytes % (1.7 - 9.3 %) 4.4 5.1 Eosinophils % (0 - 5 %) 1.2 1.1 Basophils % (0.0 - 2.0 %) 0.1 0.1 Absolute Granulocytes (1.4 - 6.5 /CUMM) 12.0 H 14.0 H Absolute Lymphocytes (1.2 - 3.4 /CUMM) 1.0 L 0.9 L Absolute Monocytes (0.10 - 0.60 /CUMM) 0.6 0.8 H Absolute Eosinophils (0.0 - 0.7 /CUMM) 0.2 0.2 Absolute Basophils (0.0 - 0.2 /CUMM) 0 0 PUBS MCHC (33.0 - 37.0 G/DL) 33.0 32.5 L 12/29 12/29 12/29 1200 1132 1132 Chemistry Sodium (137 - 145 mmol/L) 133 L Potassium (3.5 - 5.1 mmol/L) 4.6 Chloride (98 - 107 mmol/L) 101 Carbon Dioxide (22 - 30 mmol/L) 22 Anion Gap (5 - 16) 10 BUN (7 - 17 mg/dL) 59 H Creatinine (0.5 - 1.0 mg/dL) 4.5 H Estimated GFR (>60 ml/min) 10 L BUN/Creatinine Ratio (7 - 25 %) 13.1 Glucose (65 - 99 mg/dL) 105 H Calcium (8.4 - 10.2 mg/dL) 9.2 Phosphorus (2.5 - 4.5 mg/dL) 4.8 H Magnesium (1.6 - 2.3 mg/dL) 2.0 Albumin (3.5 - 5.0 g/dL) 2.8 L Coagulation PT (9.4 - 12.5 SEC) 30.4 H INR (0.90 - 1.19) 2.93 H APTT (25 - 37 SEC) 32 Cancelled Hematology CBC w Diff MAN DIFF ORDERED WBC (4.8 - 10.8 /CUMM) 13.8 H RBC (4.20 - 5.40 /CUMM) 2.66 L Hgb (12.0 - 16.0 G/DL) 8.1 L Hct (37 - 47 %) 24.5 L MCV (81.0 - 99.0 FL) 92.1 MCH (27.0 - 31.0 PG) 30.5 RDW (11.5 - 14.5 %) 16.1 H Plt Count (130 - 400 /CUMM) 231 MPV (7.4 - 10.4 FL) 8.4 Gran % (42.2 - 75.2 %) 88.7 H Lymphocytes % (20.5 - 51.1 %) 4.8 L Monocytes % (1.7 - 9.3 %) 5.9 Eosinophils % (0 - 5 %) 0.6 Basophils % (0.0 - 2.0 %) 0 L Absolute Granulocytes (1.4 - 6.5 /CUMM) 12.2 H Segmented Neutrophils (42.2 - 75.2 %) 84 H Band Neutrophils (0.0 - 5.0 %) 1 Absolute Lymphocytes (1.2 - 3.4 /CUMM) 0.7 L Lymphocytes (20.5 - 51.1 %) 9 L Monocytes (1.7 - 9.3 %) 6 Absolute Monocytes (0.10 - 0.60 /CUMM) 0.8 H Absolute Eosinophils (0.0 - 0.7 /CUMM) 0.1 Absolute Basophils (0.0 - 0.2 /CUMM) 0 Platelet Estimate (ADEQUATE) ADEQUATE Hypochromic-Microcytic 1+ Poikilocytosis 1+ Anisocytosis 1+ PUBS MCHC (33.0 - 37.0 G/DL) 33.1 Other Body Source Fld Total RBCs Counted (%) 100 12/29 12/28 0915 2145 Chemistry Sodium (137 - 145 mmol/L) 133 L Potassium (3.5 - 5.1 mmol/L) 4.2 Chloride (98 - 107 mmol/L) 101 Carbon Dioxide (22 - 30 mmol/L) 22 Anion Gap (5 - 16) 10 BUN (7 - 17 mg/dL) 58 H Creatinine (0.5 - 1.0 mg/dL) 4.4 H Estimated GFR (>60 ml/min) 10 L BUN/Creatinine Ratio (7 - 25 %) 13.2 Magnesium (1.6 - 2.3 mg/dL) 2.0 Coagulation APTT (25 - 37 SEC) 87 H 83 H Hematology CBC w Diff MAN DIFF ORDERED WBC (4.8 - 10.8 /CUMM) 13.9 H RBC (4.20 - 5.40 /CUMM) 2.65 L Hgb (12.0 - 16.0 G/DL) 8.0 L Hct (37 - 47 %) 24.3 L MCV (81.0 - 99.0 FL) 91.5 MCH (27.0 - 31.0 PG) 30.1 RDW (11.5 - 14.5 %) 16.1 H Plt Count (130 - 400 /CUMM) 220 MPV (7.4 - 10.4 FL) 8.5 Gran % (42.2 - 75.2 %) 85.5 H Lymphocytes % (20.5 - 51.1 %) 7.3 L Monocytes % (1.7 - 9.3 %) 6.3 Eosinophils % (0 - 5 %) 0.8 Basophils % (0.0 - 2.0 %) 0.1 Absolute Granulocytes (1.4 - 6.5 /CUMM) 11.8 H Segmented Neutrophils (42.2 - 75.2 %) 85 H Band Neutrophils (0.0 - 5.0 %) 1 Absolute Lymphocytes (1.2 - 3.4 /CUMM) 1.0 L Lymphocytes (20.5 - 51.1 %) 6 L Monocytes (1.7 - 9.3 %) 6 Absolute Monocytes (0.10 - 0.60 /CUMM) 0.9 H Eosinophils (0 - 5.0 %) 1 Absolute Eosinophils (0.0 - 0.7 /CUMM) 0.1 Absolute Basophils (0.0 - 0.2 /CUMM) 0 Myelocytes (0 - 0 %) 1 H Platelet Estimate (ADEQUATE) ADEQUATE Hypochromic-Microcytic 1+ Poikilocytosis 1+ Anisocytosis 1+ PUBS MCHC (33.0 - 37.0 G/DL) 32.9 L Imaging/Other Studies: No new imaging
--- NOTE | 2016-12-31 12:59 | NUR ---
NURSING NOTE: PATIENT LEFT FLOOR VIA GEN/MED BED WITH DISTRIBUTION TO DIALYSIS. PATIENT A/OX3, C/O PAIN 6/10 AT THIS TIME TO LEFT HIP AFTER PAIN MEDICATION GIVEN PER ORDER. PATIENT TO RECEIVE BLOOD TRANSFUSION DURING DIALYSIS. WILL AWAIT PATIENT'S RETURN.
--- NOTE | 2016-12-31 17:28 | NUR ---
NURSING NOTE: PATIENT ARRIVED BACK TO FLOOR VIA BED WITH DISTRIBUTION FROM DIALYSIS. PATIENT A/OX3, C/O PAIN / TO L HIP. DRSG REPLACED DUE TO SATURATION FROM WOUND DRAINAGE. PATIENT WEIGHT TAKEN PER SHELLY LIFT. WT 176.7. WILL CONTINUE TO MONITOR.
[2016-12-31 18:05] VITALS: BP 120/54
--- NOTE | 2016-12-31 18:50 | PN- Cardiology ---
Subjective Subjective: Mrs. Freeman again dropped her hematocrit secondary to oozing from her surgical site and required another unit of packed red cells. Other than being frustrated about the length of time she has been hospitalized, she is without complaints. She specifically denies any chest discomfort, palpitations, or change in her chronic dyspnea on exertion. Objective Vital Signs and I&Os Vital Signs Date Time Temp Pulse Resp B/P Pulse O2 O2 Flow FiO2 Ox Delivery Rate 12/31 1805 87 20 120/54 96 Nasal 3.0L Cannula 12/31 1200 97.7 69 20 108/44 96 Nasal 3.0L Cannula 12/31 1132 Nasal 3.0L Cannula 12/31 0859 99 Nasal 3.0L Cannula 12/31 0800 Nasal 3.0L Cannula 12/31 0614 98.0 70 20 118/60 98 Nasal 3.0L Cannula 12/31 0000 99 Nasal 3.0L Cannula 12/30 2253 72 112/58 12/30 2226 98.2 72 20 112/58 99 Nasal 3.0L Cannula 12/30 1925 96 Nasal 3.0L Cannula 12/30 1920 98 Nasal 3.0L Cannula 12/30 1918 99 Nasal 3.0L Cannula Intake & Output 12/31 1600 12/31 0800 12/31 0000 12/30 1600 12/30 0800 12/30 0000 Intake Total 909 057 2297 100 200 Output Total 100 200 200 552 0 Balance 600 -200 40 928 100 200 Intake, IV 10 Intake, Oral 334 223 5660 100 200 Number 1 0 2 Bowel Movements Output, Stool 2 Output, Urine 100 200 200 550 0 Patient 182 lb 180 lb Weight Physical Exam: Well developed, pale appearing female in no acute distress nasal oxygen in place. Vital signs: See above. Lungs: Decreased breath sounds and otherwise clear to auscultation. Heart: S1, S2 with appropriate mechanical valve sounds and grade 2/6 systolic murmur. Extremities: Trace edema. Current Medications: Current Medications Sig/Tripp Start time Last Medication Dose Route Stop Time Status Admin Acetaminophen 650 MG Q6P PRN 12/19 170 AC PO Albuterol Sulfate 3 ML TID 12/23 2199 AC 12/31 INH 0843 Albuterol Sulfate 2 PUF Q4-6 PRN PRN 12/19 170 AC INH Amlodipine Besylate 10 MG AT BEDTIME 12/19 2199 AC 12/30 PO 2253 Bisacodyl 5 MG AT BEDTIME 12/19 2200 AC 12/30 PO 2253 Budesonide/ 2 PUF BID 12/19 2200 AC 12/31 Formoterol Fumarate INH 0857 Cholecalciferol 1,000 IU DAILY 12/20 1000 AC 12/31 PO 0856 Diltiazem HCl 120 MG DAILY 12/20 1000 AC 12/31 PO 0857 Epoetin Jerson 4,000 UNIT MoWeFr 12/20 1653 AC 12/31 IV 1752 Ferric Sodium 125 MG QWED@1300 12/29 1300 AC Gluconate Complex IV Sodium Chloride 100 ML Furosemide 40 MG 7:30 AM, & 4:30 PM 12/20 0730 AC 12/31 PO 1736 Hydromorphone HCl 2 MG Q4P PRN 12/29 1315 DC 12/31 IV 1203 Lorazepam 2 MG ONCE ONE 12/300 DC 12/30 PO 12/30 220 2253 Melatonin 5 MG AT BEDTIME 12/26 0215 AC 12/30 PO 2253 Multivitamins 1 TAB DAILY 12/20 1000 AC 12/31 PO 0857 Oxycodone HCl 15 MG Q6 PRN 12/19 1700 AC 12/31 PO 1734 Paricalcitol 2 MCG MoWeFr 12/20 1653 AC 12/31 IV 1753 Patient Medication 1 ED .STK-MED ONE 12/31 1409 NC Teaching ED 12/31 1410 Polyethylene Glycol 17 GM DAILY 12/20 1000 AC 12/31 PO 0855 Prednisone 10 MG DAILY 12/20 1000 AC 12/31 PO 0857 Senna 187 MG AT BEDTIME 12/19 2200 AC 12/30 PO 2253 Senna/Docusate Sodium 2 TAB DAILY 12/29 1451 AC 12/31 PO 0857 Sertraline HCl 100 MG DAILY 12/20 1000 AC 12/31 PO 0856 Sevelamer HCl 2,400 MG TIDAC 12/19 1700 AC 12/31 PO 1734 Tiotropium [place] 1 PUF DAILY 12/20 1000 AC 12/31 INH 0856 Warfarin Sodium 1 MG COUMADIN 1700 ONE 12/31 1700 DC 12/31 PO 12/31 1701 1734 Results Last 48 Hrs of Labs/Mics: Laboratory Tests 12/31/16 1445: Sodium Cancelled, Potassium Cancelled, Chloride Cancelled, Carbon Dioxide Cancelled, Anion Gap Cancelled, BUN Cancelled, Creatinine Cancelled, BUN/ Creatinine Ratio Cancelled, CBC w Diff Cancelled, WBC Cancelled, RBC Cancelled, Hgb Cancelled, Hct Cancelled, MCV Cancelled, MCH Cancelled, RDW Cancelled, Plt Count Cancelled, MPV Cancelled, PUBS MCHC Cancelled 12/31/16 0908: Anion Gap 12, Estimated GFR 9 L, BUN/Creatinine Ratio 12.8, PT 32.2 H, INR 3.10 H, CBC w Diff NO MAN DIFF REQ, RBC 2.32 L, MCV 95.2, MCH 31.4 H, RDW 17.0 H, MPV 9.2, Gran % 87.1 H, Lymphocytes % 7.2 L, Monocytes % 4.4, Eosinophils % 1.2, Basophils % 0.1, Absolute Granulocytes 12.0 H, Absolute Lymphocytes 1.0 L, Absolute Monocytes 0.6, Absolute Eosinophils 0.2, Absolute Basophils 0, PUBS MCHC 33.0 12/30/16 1156: Anion Gap 8, Estimated GFR 13 L, BUN/Creatinine Ratio 11.1, PT 46.2 *H, INR 4.47 *H, CBC w Diff NO MAN DIFF REQ, RBC 2.72 L, MCV 93.0, MCH 30.2, RDW 17.0 H, MPV 8.1, Gran % 87.9 H, Lymphocytes % 5.8 L, Monocytes % 5.1, Eosinophils % 1.1, Basophils % 0.1, Absolute Granulocytes 14.0 H, Absolute Lymphocytes 0.9 L , Absolute Monocytes 0.8 H, Absolute Eosinophils 0.2, Absolute Basophils 0, PUBS MCHC 32.5 L Assessment/Plan Assessment/Plan Mrs. Freeman is a hemodynamically stable 66-year-old female with multiple medical problems: * This hospitalization is for a mechanical fall s/p orthopedic surgery complicated by surgical site hematoma requiring PRBCs 3 while on bridging anticoagulation and subsequent oozing from the surgical site requiring PRBC 1 today (12/31/2016). * RHD w/ MS; s/p mechanical mitral valve prosthesis. * Chronic atrial fibrillation s/p AVN ablation for RVR w/ BiV pacemaker. * Previous, remote TIA on Warfarin anticoagulation. * Therapeutic INR (3.1) with anticoagulation still on hold. She has remained relatively hemodynamically stable with H/H 7.3 today. Repeat CBC this evening and reassess the need for further transfusion of PRBCs. * ESRD on HD. Recommendations: * Follow-up INR in a.m. and restart anticoagulation when appropriate given high thrombotic risk with mechanical MV, chronic AF, previous TIA on full anticoagulation with warfarin. * Continue with close observation of surgical site and continue to check all stools for occult blood. * Continued HD for ESRD. * DVT prophylaxis being addressed by supratherapeutic INR. Continue telemetry? Yes
[2016-12-31 22:55] VITALS: BP 110/64
[2017-01-01 06:46] VITALS: BP 110/52
--- NOTE | 2017-01-01 07:57 | PN- Housestaff ---
Subjective Follow-up For: Intertrochanteric fracture left Dropping H&H Subjective: Ms. Laguna was seen and examined this morning. She was resting comfortably in bed. The patient did endorse 8 out of 10 left hip pain. Described as a sharp pain. Worse with movement. Pain was secondary to a recent surgical hematoma. The patient denies any fever, chills, nausea, vomiting. She reports no other issues overnight. Review of Systems Constitutional: Reports: see HPI. Objective Last 24 Hrs of Vital Signs/I&O Vital Signs Date Time Temp Pulse Resp B/P Pulse O2 O2 Flow FiO2 Ox Delivery Rate 01/01 1227 97.8 72 20 110/52 01/01 0838 98 Nasal 3.0L Cannula 01/01 0800 Nasal 3.0L Cannula 01/01 0646 97.8 72 20 110/52 100 01/01 0000 Nasal 3.0L Cannula 12/31 2255 98.3 71 16 110/64 97 Nasal 3.0L Cannula 12/31 2151 71 110/64 12/31 2027 95 Nasal 3.0L Cannula 12/31 1805 87 20 120/54 96 Nasal 3.0L Cannula Intake & Output 01/01 1600 01/01 0800 01/01 0000 Intake Total 360 600 Output Total 300 250 Balance 60 350 Intake, Oral 360 600 Output, Urine 300 250 Patient 81.306 kg Weight Physical Exam General Appearance: Alert, Oriented X3, Cooperative, Mild Distress Cardiovascular: Regular Rate, Normal S1, Normal S2 Lungs: Clear to Auscultation, Normal Air Movement Abdomen: Normal Bowel Sounds, Soft, No Tenderness Neurological: Normal Speech Extremities: Left thigh. Significant bruising and evidence of a hematoma. Vascular: Normal Pulses Current Medications: Current Medications Sig/Tripp Start time Last Medication Dose Route Stop Time Status Admin Acetaminophen 650 MG Q6P PRN 12/19 1700 DCD PO Albuterol Sulfate 3 ML TID 12/23 2199 DCD 01/01 INH 0831 Albuterol Sulfate 2 PUF Q4-6 PRN PRN 12/19 170 DCD INH Amlodipine Besylate 10 MG AT BEDTIME 12/19 2199 DCD 12/31 PO 2151 Bisacodyl 5 MG AT BEDTIME 12/19 2199 DCD 12/31 PO 215 Budesonide/ 2 PUF BID 12/19 2199 DCD 01/01 Formoterol Fumarate INH 1140 Cholecalciferol 1,000 IU DAILY 12/20 1000 DCD 01/01 PO 0821 Diltiazem HCl 120 MG DAILY 12/20 1000 DCD 01/01 PO 0822 Epoetin Jerson 4,000 UNIT MoWeFr 12/20 1653 DCD 12/31 IV 1752 Ferric Sodium 125 MG QWED@1300 12/29 1300 DCD Gluconate Complex IV Sodium Chloride 100 ML Furosemide 40 MG 7:30 AM, & 4:30 PM 12/20 0730 DCD 01/01 PO 0642 Hydromorphone HCl 2 MG Q4P PRN 12/29 1315 DC 12/31 IV 1203 Lorazepam 2 MG ONCE ONE 12/31 2245 DC 12/31 PO 12/31 2246 2338 Lorazepam 1 MG ONCE ONE 12/31 2230 CAN PO 12/31 2231 Melatonin 5 MG AT BEDTIME 12/26 0215 DCD 12/31 PO 2151 Morphine Sulfate 1 MG ONCE ONE 12/310 DC 12/31 IV 12/31 220 2151 Multivitamins 1 TAB DAILY 12/20 1000 DCD 01/01 PO 0821 Oxycodone HCl 15 MG Q6 PRN 12/19 1700 DCD 01/01 PO 1140 Paricalcitol 2 MCG MoWeFr 12/20 1653 DCD 12/31 IV 1753 Polyethylene Glycol 17 GM DAILY 12/20 1000 DCD 12/31 PO 0855 Prednisone 10 MG DAILY 12/20 1000 DCD 01/01 PO 0821 Senna 187 MG AT BEDTIME 12/19 2200 DCD 12/31 PO 2152 Senna/Docusate Sodium 2 TAB DAILY 12/29 1451 DCD 01/01 PO 0820 Sertraline HCl 100 MG DAILY 12/20 1000 DCD 01/01 PO 0821 Sevelamer HCl 2,400 MG TIDAC 12/19 1700 DCD 01/01 PO 1143 Tiotropium [place] 1 PUF DAILY 12/20 1000 DCD 01/01 INH 1140 Warfarin Sodium 1 MG COUMADIN 1700 ONE 12/31 1700 DC 12/31 PO 12/31 1701 1734 Last 24 Hrs of Lab/Thien Results Last 24 Hrs of Labs/Mics: Laboratory Tests 01/01/17 0727: Anion Gap 7, Estimated GFR 17 L, BUN/Creatinine Ratio 11.8, PT 29.7 H, INR 2.86 H, CBC w Diff NO MAN DIFF REQ, RBC 2.90 L, MCV 93.6, MCH 30.3, RDW 19.3 H, MPV 8.6, Gran % 85.7 H, Lymphocytes % 8.4 L, Monocytes % 4.7, Eosinophils % 1.2, Basophils % 0 L, Absolute Granulocytes 11.8 H, Absolute Lymphocytes 1.2, Absolute Monocytes 0.7 H, Absolute Eosinophils 0.2, Absolute Basophils 0, PUBS MCHC 32.4 L Assessment/Plan Assessment: 66 y/o woman with PMHx of ESRD on HD(MWF),atrial fibrillation on warfarin, mitral stenosis s/p mechanical valve replacement initially admitted for L hip intertrochanteric failure 2/2 mechanical fall, now POD #10 s/p L hip IMHS, complicated by ABLA 2/2 hematoma at the surgical site while on bridging anticoagulation. #Supratherapeutic INR (resolved): - INR goal is 2.5-3.5 given mechanical mitral valve. * Cardiology following. Appreciate their recs. * INR is 3.1 so dosing of warfarin 1mg today - recheck her INR tomorrow. * patient did no require a proline as she had adequate access Patient's INR today was 2.86. She is stable for discharge and can continue her dose of warfarin 2.5 mg tablets on a daily basis. Target INR is between 2.5 and 3.5. #ABLA:. * H/H dropped today from 8.2/25.3 to 7.3/22 received another unit today with her dialysis, so will recheck her H&H tomorrow: Repeat H&H this a.m. was 8.8 and 27.2 respectively. She was given a manual prescription to check her CBC on 01/02. She was requested to send the results of this lab work to her primary care physician. * repeat ct scan showed 2 hematoma orthopedics consulted felt her hematoma is unrelated to surgery, although if related not in compartment syndrome. * Recommend DEDRICK hose stockings and Meek wrap depressions to the thigh * No surgical options - no IR guided removal of hematoma in view of her anticoagulation status. So the options available now are monitor her CBC with each dialysis and treat conservatively. # L hip intertrochanteric fracture: POD #11 s/p L hip IMHS. * will need STR # ESRD: Secondary to presumed hypertensive nephrosclerosis. * Nephrology following. Appreciate their recs. * Continue Epogen 4000 units IV and Zemplar 2 mcg IV three times per week with HD. * Continue Nephrocaps tab PO daily and Sevelamer 2400 mg PO TIDAC. Diet: Renal Dialysis Diet DVT PPx: IV heparin CODE: DNR/DNI Problem List: 1. H/O mitral valve replacement with mechanical valve 2. Acute blood loss anemia 3. Hematoma of left hip 4. Depression 5. Anxiety 6. Anemia Pain Ratin Pain Location: Left Thigh Pain Goal: Remain pain free Pain Plan: Dilaudid and morphine Tomorrow's Labs & Rationales: NA
[2017-01-01 08:33] LABS: PT 29.7 SEC (9.4-12.5)
[2017-01-01 08:58] LABS: ABSOLUTE BASOPHIL COUNT 0 /CUMM (0.0-0.2); ABSOLUTE EOSINOPHIL COUNT 0.2 /CUMM (0.0-0.7); ABSOLUTE GRANULOCYTE CT 11.8 /CUMM (1.4-6.5); ABSOLUTE LYMPH COUNT 1.2 /CUMM (1.2-3.4)
[2017-01-01 09:37] LABS: ABSOLUTE MONOCYTE COUNT 0.7 /CUMM (0.10-0.60); BASOPHIL % 0 % (0.0-2.0); EOSINOPHIL % 1.2 % (0-5); MEAN CORPUSCULAR HGB 30.3 PG (27.0-31.0); MEAN CORPUSCULAR HGB CONC 32.4 G/DL (33.0-37.0); MEAN CORPUSCULAR VOLUME 93.6 FL (81.0-99.0); MEAN PLATELET VOLUME 8.6 FL (7.4-10.4); PLATELET COUNT 234 /CUMM (130-400); RBC DISTRIBUTION WIDTH 19.3 % (11.5-14.5); WHITE BLOOD CELL COUNT 13.8 /CUMM (4.8-10.8)
[2017-01-01 09:45] LABS: HEMATOCRIT 27.2 % (37-47)
[2017-01-01 10:06] LABS: GRANULOCYTE % 85.7 % (42.2-75.2)
--- NOTE | 2017-01-01 11:31 | PN- Att Addend ---
Attending Addendum Attending Brief Note Mrs. Freeman remains stable overnight. Her examination is benign. Her H&H are now acceptable and her INR is therapeutic. She is stable to return to rehabilitation.
[2017-01-01 12:27] VITALS: BP 110/52
== END 2017-01-01 14:06 | DRG 480 ==
LOC: ENRESERVDT → ENRESERVTM → ERH 09:01 → CRI 10:44 → ENPENDDIS 10:44 → 2NA 10:44 → 1NO 10:44 → ERHI 10:44 → 2NB 10:44 → 2NA 12:53 → CRI 12-21 17:12 → 1NO 12-24 14:12 → 2NB 12-28 19:13
PROVIDERS: Dermatology; Internal Medicine; Internal Medicine Hematology & Oncology; Internal Medicine Interventional Cardiology; Internal Medicine Nephrology; Physician Assistant Medical; Preventive Medicine Public Health & General Preventive Medicine; Radiology Diagnostic Radiology; Student in an Organized Health Care Education/Training Program; ADMIT Internal Medicine
PROC: 5A1D60Z (ICD-10-PCS; 2016-12-17)
PROC: 0QS7XZZ Reposition Left Upper Femur, External Approach (ICD-10-PCS; principal; 2016-12-19)
PROC: 0QH736Z Insertion of Intramedullary Internal Fixation Device into Left Upper Femur, Percutaneous Approach (ICD-10-PCS; principal; 2016-12-19)
PROC: 30233N1 Transfusion of Nonautologous Red Blood Cells into Peripheral Vein, Percutaneous Approach (ICD-10-PCS; 2016-12-21)
DX: S72.142A Displaced intertrochanteric fracture of left femur, initial encounter for closed fracture (principal); N18.6 End stage renal disease; I47.2 Ventricular tachycardia; I13.2 Hypertensive heart and chronic kidney disease with heart failure and with stage 5 chronic kidney disease, or end stage renal disease; J96.10 Chronic respiratory failure, unspecified whether with hypoxia or hypercapnia; I27.2 Other secondary pulmonary hypertension; D68.32 Hemorrhagic disorder due to extrinsic circulating anticoagulants; D62 Acute posthemorrhagic anemia; I50.32 Chronic diastolic (congestive) heart failure; M96.840 Postprocedural hematoma of a musculoskeletal structure following a musculoskeletal system procedure; Z99.81 Dependence on supplemental oxygen; Z87.891 Personal history of nicotine dependence; F41.9 Anxiety disorder, unspecified; F32.9 Major depressive disorder, single episode, unspecified; Z99.2 Dependence on renal dialysis; Z95.2 Presence of prosthetic heart valve; Z79.01 Long term (current) use of anticoagulants; I48.2 Chronic atrial fibrillation; W01.0XXA Fall on same level from slipping, tripping and stumbling without subsequent striking against object, initial encounter; Y92.009 Unspecified place in unspecified non-institutional (private) residence as the place of occurrence of the external cause; E87.5 Hyperkalemia; J44.9 Chronic obstructive pulmonary disease, unspecified; D63.1 Anemia in chronic kidney disease; Z86.73 Personal history of transient ischemic attack (TIA), and cerebral infarction without residual deficits; Y83.8 Other surgical procedures as the cause of abnormal reaction of the patient, or of later complication, without mention of misadventure at the time of the procedure; T45.515A Adverse effect of anticoagulants, initial encounter
CPT/HCPCS: 1NP; 2NASP; 2NBP; CCU; 36415; 73502-LT; 73562-LT; 74176; 82436; 86920; 86922; 93005; 93010; 96374; 96375; 97002-GP; 97110-GO; 97112-GO; 97116-GO; 97161-GP; 97530-GO; J0131; J0690; J0885; J1170; J1644; J1756; J2270; J2501; J3490; J7060; J7512; P9016

== ENCOUNTER 2017-01-15 11:00 | Emergency (ER) | payer OTHER, MEDICARE ==
[~2017-01-15] VITALS: Ht 175.3 cm; Wt 76.2 kg
[~2017-01-15 11:00] MED LIST changes: +AMLODIPINE BESY10 M1 PO; +DILTIAZEM 24HR120 MG PO; +FUROSEMIDE40 M1 PO; +PROAIR HFA8.5 GM INH; +RENVELA800 M1 PO; +SPIRIVA18 MCG INH; +SYMBICORT 16010.2 GM INH; +VITAMIN D31000 UNI1 PO; +ZOLOFT100 M1 PO
--- NOTE | 2017-01-15 11:31 | ED GENERAL ADULT ---
History of Present Illness General Chief Complaint: General Adult Stated Complaint: BIBA FOR ?FEVER, HYPOTENSION Source: patient, EMS Exam Limitations: no limitations Vital Signs & Intake/Output Vital Signs & Intake/Output Vital Signs Date Time Temp Pulse Resp B/P Pulse O2 O2 Flow FiO2 Ox Delivery Rate 01/15 1454 97.5 69 16 90/54 100 Nasal 3.0L Cannula 01/15 1322 95 Nasal 3.0L Cannula 01/15 1321 97.7 71 20 97/53 95 Nasal 3.0L Cannula 01/15 1106 98.0 71 17 103/52 98 Nasal 3.0L Cannula Allergies Coded Allergies: NO KNOWN ALLERGIES (11/26/16) Reconcile Medications Albuterol Sulfate (Proair Hfa) 90 MCG HFA.AER.AD 2 PUF INH Q4-6 PRN PRN COPD (Reported) Amlodipine Besylate 10 MG TABLET 1 TAB PO DAILY HTN (Reported) Budesonide/Formoterol Fumarate (Symbicort 160-4.5 Mcg Inhaler) 160 MCG-4.5 MCG/ ACTUATION HFA.AER.AD 2 PUF INH BID COPD (Reported) Cholecalciferol (Vitamin D3) (Vitamin D3) 1,000 UNIT CAPSULE 1 CAP PO DAILY NUTRIENT (Reported) Diltiazem HCl (Diltiazem 24HR ER) 120 MG CAP.ER.24H 1 CAP PO DAILY AFIB ( Reported) Epoetin Jerson (Procrit) 20,000 U/ML ML 7,000 U IV Tuesday PRN WITH DIALYSIS Furosemide 40 MG TABLET 1 TAB PO BID FLUID IN LEGS (Reported) Lorazepam (Ativan) 2 MG TABLET 1 TAB PO QPM PRN ANXIETY (Reported) OXYCODONE HCL (Oxycodone HCl) 15 MG TABLET 1 TAB PO Q4H PAIN (Reported) Prednisone 10 MG TABLET 1 TAB PO DIRECTED COPD TAKE 3 TABLETS FOR 2 DAYS (12/01-12/02) TAKE 2 TABLETS FOR 2 DAYS (12/03-12/04) TAKE 1 TABLET FOR 2 DAYS (12/05-12-06) Sertraline HCl (Zoloft) 100 MG TABLET 1 TAB PO DAILY MENTAL HEALTH (Reported) Sevelamer Carbonate (Renvela) 800 MG TABLET 2 TAB PO TID KIDNEY FUNCTION ( Reported) Sevelamer Carbonate (Renvela) 800 MG TABLET 1 TAB PO TID WM PHOSPHORUS BINDER (Reported) TAKE WITH MEALS Tiotropium [place] (Spiriva) 18 MCG CAP.W.DEV 1 CAP INH DAILY COPD (Reported) Warfarin Sodium (Coumadin) 5 MG TABLET 0.5 TAB PO DAILY BLOOD THINNER ( Reported) Triage Note: PT BIBA FOR FEVER AND LOW BLOOD PRESSURE. PT WAS ON HER WAY TO DIALYSIS, BUT EMS TOOK PT HERE DUE TO LOW BP AND FEVER. EMS REPORTS THAT [facility] REPORTED A FEVER OF 100-101.0. ECF GAVE PT 2 TYLENOL PILLS PRIOR TO ARRIVAL. PT AFEBRILE 98 ON ARRIVAL. PT'S BP 103/52. PT HAS NO COMPLAINTS UPON ARRIVAL. Triage Nurses Notes Reviewed? yes HPI: Zafar is a 66-year-old female brought in by ambulance to room 12 for evaluation of low blood pressure and fever that she had this morning at [facility]. She was on her way to dialysis when the ambulance crew decided to bring her to the emergency department for evaluation of the symptoms. Zafar is feeling well with no chest pain, shortness of breath, lightheadedness, dizziness , palpitations but she does report that she had a fever this morning. She does have intermittent wheezes and uses nebulizer treatments. She reports that she was on her way to dialysis and was not supposed to come to the emergency department. [facility] was not aware of her transportation to [place] emergency department. (HUGO BATES APRN) Past History Travel History Traveled to [place] past 21 day No Medical History Any Pertinent Medical History? see below for history Neurological: TIA EENT: NONE Cardiovascular: AFIB (s/p ablation), CHF, hypertension, mitral stenosis, PACER ( R CHEST) MITRAL VALVE REPLACEMENT Respiratory: COPD, emphysema, pulmonary hypertension, 02 DEP @ 3L VIA N/C Gastrointestinal: 08/06 EGD- suggestion of gastroparesis 08/06- colonoscopy- fair prep, but otherwise normal Hepatic: NONE Renal: ESRD on HD, FISTULA L ARM Musculoskeletal: chronic back pain Psychiatric: anxiety, depression Endocrine: NONE Blood Disorders: anemia Cancer(s): NONE ADDICTION TREATMENT COUNSELOR/Reproductive: NONE History of MRSA: No History of VRE: No History of CDIFF: No Surgical History Surgical History: appendectomy, AV fistula LUE replacement February 1996 at [facility] evacuation of left arm hematoma pacemaker MVR [facility] MVR 02/1996: benign R paratracheal mass PPM : Cervical cone bx 12/19/16: L hip ORIF Psychosocial History Who do you live with Spouse Services at Home Nursing, Oxygen, Physical Therapy What is your primary language Hebrew Tobacco Use: Quit >30 days ago ETOH Use: denies use Illicit Drug Use: denies illicit drug use Family History Family History, If Any: BROTHER FH: diabetes mellitus MOTHER, , Age 49; Cause: Arteriosclerotic heart disease (ASHD). FATHER, , Age 84; Cause: Old age. Hx Contributory? No (HUGO BATES APRN) Review of Systems Review of Systems Constitutional: Reports: no symptoms. EENTM: Reports: no symptoms. Respiratory: Reports: no symptoms. Cardiovascular: Reports: no symptoms. GI: Reports: no symptoms. Genitourinary: Reports: no symptoms. Musculoskeletal: Reports: no symptoms. Skin: Reports: no symptoms. Neurological/Psychological: Reports: no symptoms. Hematologic/Endocrine: Reports: no symptoms. Immunologic/Allergic: Reports: no symptoms. All Other Systems: Reviewed and Negative (HUGO BATES APRN) Physical Exam Physical Exam General Appearance: well developed/nourished, no apparent distress, alert, awake , comfortable Head: atraumatic, normal appearance Eyes: Bilateral: normal appearance, PERRL, EOMI. Ears, Nose, Throat: normal pharynx, normal ENT inspection, hearing grossly normal Neck: normal inspection, supple, full range of motion Respiratory: decreased breath sounds, wheezing Cardiovascular: regular rate/rhythm Gastrointestinal: normal bowel sounds, soft, non-tender Back: normal inspection, normal range of motion Extremities: normal inspection, normal capillary refill, normal range of motion Neurologic/Psych: no motor/sensory deficits, awake, alert, oriented x 3, normal mood/affect Skin: intact, normal color, warm/dry Core Measures ACS in differential dx? Yes ASA ordered for poss ACS? No-ACS ruled out CVA/TIA Diagnosis: No Severe Sepsis Present: No Septic Shock Present: No (HUGO BATES APRN) Progress Differential Diagnoses I considered the following diagnoses in my evaluation of the patient: We will evaluate her for sepsis including pneumonia, uti, COPD exacerbation, ACS Plan of Care: Orders Procedure Date/time Status Regular Diet 01/15 D Active Saline Lock 01/15 1108 Active BLOOD CULTURE 01/16 1108 Active TROPONIN LEVEL 01/16 1108 Complete COMPREHENSIVE METABOLIC PANEL 01/16 1108 Complete CBC WITHOUT DIFFERENTIAL 01/16 1108 Complete EKG 01/16 1108 Active Laboratory Tests 01/15/17 1127: Anion Gap 5, Estimated GFR 14 L, BUN/Creatinine Ratio 7.6, Glucose 106 H, Calcium 8.5, Total Bilirubin 0.7, AST 18, ALT 28, Alkaline Phosphatase 98, Troponin I 0.02, Total Protein 5.1 L, Albumin 2.8 L, Globulin 2.3, Albumin/ Globulin Ratio 1.2 01/15/17 112: CBC w Diff NO MAN DIFF REQ, RBC 2.87 L, MCV 93.0, MCH 29.7, RDW 18.1 H, MPV 8.2, Gran % 88.7 H, Lymphocytes % 4.2 L, Monocytes % 6.7, Eosinophils % 0.2, Basophils % 0.2, Absolute Granulocytes 5.4, Absolute Lymphocytes 0.3 L, Absolute Monocytes 0.4, Absolute Eosinophils 0, Absolute Basophils 0, PUBS MCHC 32.0 L 01/15/17 110: Urine Color Cancelled, Urine Clarity Cancelled, Urine pH Cancelled, Ur Specific [place]ar[place] Cancelled, Urine Protein Cancelled, Urine Ketones Cancelled, Urine Nitrite Cancelled, Urine Bilirubin Cancelled, Urine Urobilinogen Cancelled, Ur Leukocyte Esterase Cancelled, Ur Microscopic Cancelled, Urine Hemoglobin Cancelled, Urine Glucose Cancelled Microbiology 01/15 1121 BLOOD: Blood Culture - RECD 01/16 1108 URINE ROUT: Urine Culture - CAN Cancelled: NOT REC'D IN LAB - PATIENT DEPARTED ER 01/16 1108 BLOOD: Blood Culture - CAN Cancelled: NOT REC'D INI LAB - PATIENT DEPARTED ER Diagnostic Imaging: Viewed by Me: Radiology Read. Discussed w/RAD: Radiology Read. CXR Impression: see below Initial ED EKG: none Comments: [facility] notified of patient's admission to [place] emergency department. Nurses report that they were going to notify the facilities [employer]ING [employer]ANT OPERATOR to get an outpatient chest x-ray because Zafar has been having a cough and congestion with mild fever. ACS ruled out- no ASA given. no ECG done b/c she had no CV symptoms. Troponin negative. ATIENT: JEREMÍASImtiazZAFAR PRESENT AGE: 66 PATIENT ACCOUNT NO: [id number] : 51 LOCATION: [facility] ORDERING PHYSICIAN: HUGO BATES APRN SERVICE DATE: 01/15/17 EXAM TYPE: RAD - XRY-CHEST XRAY, PA AND LATERAL EXAMINATION: XR CHEST CLINICAL INFORMATION: Fever and chills COMPARISON: 12/22/2016 TECHNIQUE: 2 views of the chest were obtained. FINDINGS: The cardiac silhouette is moderately enlarged with median sternotomy wires. Left pectoral pacemaker with coronary sinus and right ventricular leads identified. Mild vascular congestion is not acute. No consolidation or acute process identified. Calcification along the right major fissure is again demonstrated. IMPRESSION: Enlarged cardiac silhouette. No evidence of pneumonia or acute pulmonary edema. Mild chronic vascular congestion. DICTATED BY: EVERETTE VELEZ MD DATE/TIME DICTATED:01/15/171309 SURGICAL SCRUB TECHNICIAN:STEFANIE DATE/TIME TRANSCRIBED:01/15/171309 CONFIDENTIAL, DO NOT COPY WITHOUT APPROPRIATE AUTHORIZATION. <Electronically signed in Other Vendor System> SIGNED BY: EVERETTE VELEZ MD 01/15/17 1320 2:15 PM I spoke to [facility] in [place], Zafar was going to come just to get extra fluid taken off of her per Dr. Licea. She has dialysis Tuesday usually. Call now made out to Dr. Licea. Dr. Campo aware of case. 2:[address] Licea notified and patient will go to dialysis before going back [facility] ambulance has been called. (HUGO BATES APRN) Departure Departure Time of Disposition: 1441 Disposition: ACUTE REHAB FACILITY Condition: Stable Clinical Impression Primary Impression: End-stage renal disease on hemodialysis Secondary Impressions: Viral bronchitis Referrals: YAIR SARAH MD (PCP/Family) Departure Forms: Customer Survey General Discharge Information (HUGO BATES APRN) PA/INSEAM TRIMMER Co-Sign Statement Statement: ED Attending supervision documentation- [X] I saw and evaluated the patient. I have also reviewed all the pertinent lab results and diagnostic results. I agree with the findings and the plan of care as documented in the PA's/INSEAM TRIMMER's documentation. [X] I have reviewed the ED Record and agree with the PA's/INSEAM TRIMMER's documentation. [] Additions or exceptions (if any) to the PAs/INSEAM TRIMMER's note and plan are summarized below: [] ([address],ALEXANDRE [place]) Critical Care Note Critical Care Note Critical Care Time: non-applicable (HUGO BATES APRN) ED Attending Observation Initial Observation Note: I have seen and personally examined ZAFAR GARCIA on 01/15/17 at 1517. I agree with the current emergency department documentation. The disposition (admission or discharge) is uncertain at this time, she needs a period of observation for the following reason(s): The ED Nurse caring for this patient has been personally informed as to what the patient is being observed for. (HUGO BATES APRN)
[2017-01-15 11:49] LABS: ABSOLUTE BASOPHIL COUNT 0 /CUMM (0.0-0.2); ABSOLUTE EOSINOPHIL COUNT 0 /CUMM (0.0-0.7); ABSOLUTE GRANULOCYTE CT 5.4 /CUMM (1.4-6.5); ABSOLUTE LYMPH COUNT 0.3 /CUMM (1.2-3.4); ABSOLUTE MONOCYTE COUNT 0.4 /CUMM (0.10-0.60); BASOPHIL % 0.2 % (0.0-2.0); EOSINOPHIL % 0.2 % (0-5); GRANULOCYTE % 88.7 % (42.2-75.2); HEMATOCRIT 26.7 % (37-47); MEAN CORPUSCULAR HGB 29.7 PG (27.0-31.0); MEAN PLATELET VOLUME 8.2 FL (7.4-10.4); PLATELET COUNT 227 /CUMM (130-400); RBC DISTRIBUTION WIDTH 18.1 % (11.5-14.5); RED BLOOD CELL CT 2.87 /CUMM (4.20-5.40); WHITE BLOOD CELL COUNT 6.1 /CUMM (4.8-10.8)
--- NOTE | 2017-01-15 13:20 | RADIOLOGY REPORT ---
EXAMINATION: XR CHEST CLINICAL INFORMATION: Fever and chills COMPARISON: 12/22/2016 TECHNIQUE: 2 views of the chest were obtained. FINDINGS: The cardiac silhouette is moderately enlarged with median sternotomy wires. Left pectoral pacemaker with coronary sinus and right ventricular leads identified. Mild vascular congestion is not acute. No consolidation or acute process identified. Calcification along the right major fissure is again demonstrated. IMPRESSION: Enlarged cardiac silhouette. No evidence of pneumonia or acute pulmonary edema. Mild chronic vascular congestion.
[2017-01-15 14:54] VITALS: BP 90/54
== END 2017-01-15 15:30 ==
LOC: ERH 11:00
PROVIDERS: Nurse Practitioner Family
DX: N18.6 End stage renal disease (principal); Z99.2 Dependence on renal dialysis; J20.8 Acute bronchitis due to other specified organisms; Z87.891 Personal history of nicotine dependence
CPT/HCPCS: 87040; 87086